=== PATIENT | female | born 1955 | race Caucasian/White ===

== ENCOUNTER → 2017-02-09 | Outpatient (CLI) | payer OTHER | END | disposition home or self-care (01) | LOC: C.LABUPNIT 09:18 | PROVIDERS: ATTEND Family Medicine | DX: Z13.818 Encounter for screening for other digestive system disorders (principal) ==

== ENCOUNTER → 2017-02-21 | Outpatient (CLI) | payer OTHER ==
[2017-02-21 11:05] LABS: URINE APPEARANCE CLOUDY (CLEAR); URINE BILIRUBIN NEG (NEG); URINE COLOR YELLOW; URINE NITRITE NEG (NEG); URINE PH 5.5 (4.5-7.5); URINE SPECIFIC GRAVITY 1.014 (1.000-1.030); UROBILINOGEN NEG (NEG); ZZUR CULT IF INDIC CLEAN CATCH YES
[2017-02-21 11:10] LABS: MANUAL MICROSCOPIC REQUIRED? NO; REVIEW REQ? NO
== END | disposition home or self-care (01) ==
LOC: C.LABUPNIT 09:29
PROVIDERS: ATTEND Nurse Practitioner Family
DX: Z01.89 Encounter for other specified special examinations (principal)

== ENCOUNTER → 2017-02-23 | Outpatient (CLI) | payer OTHER ==
[2017-02-23 10:37] LABS: MANUAL MICROSCOPIC REQUIRED? NO; REVIEW REQ? NO; URINE APPEARANCE CLEAR (CLEAR); URINE BILIRUBIN NEG (NEG); URINE COLOR YELLOW; URINE EPITHELIAL CELL AUTO 0-5 /lpf (0-5); URINE NITRITE NEG (NEG); URINE PH 6.5 (4.5-7.5); URINE SPECIFIC GRAVITY 1.012 (1.000-1.030); UROBILINOGEN NEG (NEG); ZZUR CULT IF INDIC CLEAN CATCH YES
== END ==
LOC: C.LABUPNIT 08:37
PROVIDERS: ATTEND Nurse Practitioner Family
DX: N39.0 Urinary tract infection, site not specified (principal)

== ENCOUNTER → 2017-03-01 | Outpatient (CLI) | payer OTHER ==
[2017-03-01 15:21] LABS: URINE APPEARANCE CLOUDY (CLEAR); URINE BILIRUBIN NEG (NEG); URINE COLOR YELLOW; URINE EPITHELIAL CELL AUTO >30 /lpf (0-5); URINE NITRITE POS (NEG); URINE PH 5.5 (4.5-7.5); URINE SPECIFIC GRAVITY 1.022 (1.000-1.030); UROBILINOGEN NEG (NEG); ZZUR CULT IF INDIC CLEAN CATCH YES
[2017-03-01 15:24] LABS: MANUAL MICROSCOPIC REQUIRED? NO; REVIEW REQ? NO
== END | disposition home or self-care (01) ==
LOC: C.LABUPNIT 14:38
PROVIDERS: ATTEND Nurse Practitioner Family
DX: N39.0 Urinary tract infection, site not specified (principal)

== ENCOUNTER → 2017-03-02 | Outpatient (CLI) | payer OTHER ==
[2017-03-02 10:08] LABS: HEMATOCRIT 34.8 % (37-47); MEAN CELL VOLUME 94.3 fL (80-100); MEAN CORPUSCULAR HEMOGLOBIN 31.4 pg (25-34); MEAN CORPUSCULAR HGB CONC 33.3 g/dl (32-36); MEAN PLATELET VOLUME 9.6 fL (7.4-10.4); PLATELET COUNT 251 K/uL (130-400); RED BLOOD COUNT 3.69 M/uL (4.2-5.4); WHITE BLOOD COUNT 9.51 K/uL (4.8-10.8)
[2017-03-02 10:09] LABS: BLOOD UREA NITROGEN 12 mg/dl (7-18); BUN/CREATININE RATIO 17.4 (10-20); CALCIUM 8.5 mg/dl (8.5-10.1); CARBON DIOXIDE 28 mmol/L (21-32); CHLORIDE 109 mmol/L (98-107); GLUCOSE 90 mg/dl (70-99); POTASSIUM 3.8 mmol/L (3.5-5.1); SODIUM 141 mmol/L (136-145)
== END ==
LOC: C.LABUPNIT 09:22
PROVIDERS: ATTEND Nurse Practitioner Family
DX: M86.31 Chronic multifocal osteomyelitis, shoulder (principal); E78.00 Pure hypercholesterolemia, unspecified

== ENCOUNTER → 2017-04-19 | Outpatient (CLI) | payer OTHER | LOC: C.LABUPNIT 08:02 | PROVIDERS: ATTEND Nurse Practitioner Family | DX: M62.81 Muscle weakness (generalized) (principal) ==

== ENCOUNTER → 2017-05-09 | Outpatient (CLI) | payer OTHER ==
[2017-05-09 13:01] LABS: URINE APPEARANCE CLEAR (CLEAR); URINE BILIRUBIN NEG (NEG); URINE COLOR YELLOW; URINE EPITHELIAL CELL AUTO 20-30 /lpf (0-5); URINE NITRITE NEG (NEG); URINE SPECIFIC GRAVITY 1.013 (1.000-1.030); UROBILINOGEN NEG (NEG)
[2017-05-09 13:13] LABS: MANUAL MICROSCOPIC REQUIRED? NO; REVIEW REQ? NO
== END ==
LOC: C.LABUPNIT 11:20
PROVIDERS: ATTEND Nurse Practitioner Family
DX: N39.0 Urinary tract infection, site not specified (principal)

== ENCOUNTER → 2017-05-13 | Outpatient (CLI) | payer OTHER ==
[2017-05-13 04:09] LABS: BLOOD UREA NITROGEN 17 mg/dl (7-18); BUN/CREATININE RATIO 23.7 (10-20); CALCIUM 8.3 mg/dl (8.5-10.1); CARBON DIOXIDE 26 mmol/L (21-32); CHLORIDE 109 mmol/L (98-107); CREATININE 0.73 mg/dl (0.60-1.20); GLUCOSE 105 mg/dl (70-99); POTASSIUM 3.9 mmol/L (3.5-5.1); SODIUM 142 mmol/L (136-145)
== END ==
LOC: C.LABUPNIT 10:55
PROVIDERS: ATTEND Nurse Practitioner Family
DX: Z01.89 Encounter for other specified special examinations (principal)

== ENCOUNTER → 2017-05-27 | Outpatient (CLI) | payer OTHER ==
[2017-05-27 10:28] LABS: BASO % 0.5 %; BASO ABS # 0.05 K/uL (0-0.2); EOS % 0.9 %; HEMATOCRIT 40.1 % (37-47); IG% 0.2 %; LYMPH % 29.3 %; LYMPH ABS # 2.92 K/uL (1.2-3.4); MEAN CELL VOLUME 96.2 fL (80-100); MEAN CORPUSCULAR HEMOGLOBIN 31.9 pg (25-34); MEAN PLATELET VOLUME 9.6 fL (7.4-10.4); MONO % 7.8 %; NEUT % 61.3 %; PLATELET COUNT 281 K/uL (130-400); RED BLOOD COUNT 4.17 M/uL (4.2-5.4); WHITE BLOOD COUNT 9.98 K/uL (4.8-10.8)
[2017-05-27 10:36] LABS: COMPLETE YES; MEAN CORPUSCULAR HGB CONC 33.2 g/dl (32-36)
[2017-05-27 10:54] LABS: BLOOD UREA NITROGEN 20 mg/dl (7-18); BUN/CREATININE RATIO 20.6 (10-20); CALCIUM 8.4 mg/dl (8.5-10.1); CARBON DIOXIDE 24 mmol/L (21-32); CHLORIDE 108 mmol/L (98-107); CREATININE 0.98 mg/dl (0.60-1.20); GLUCOSE 155 mg/dl (70-99); POTASSIUM 3.7 mmol/L (3.5-5.1); SODIUM 139 mmol/L (136-145)
== END | disposition home or self-care (01) ==
LOC: C.LABUPNIT 10:16
PROVIDERS: ATTEND Nurse Practitioner Family
DX: Z01.89 Encounter for other specified special examinations (principal)

== ENCOUNTER → 2017-05-29 | Outpatient (CLI) | payer OTHER ==
[2017-05-29 10:53] LABS: BLOOD UREA NITROGEN 16 mg/dl (7-18); BUN/CREATININE RATIO 19.1 (10-20); CALCIUM 8.4 mg/dl (8.5-10.1); CARBON DIOXIDE 26 mmol/L (21-32); CHLORIDE 106 mmol/L (98-107); CREATININE 0.83 mg/dl (0.60-1.20); GLUCOSE 131 mg/dl (70-99); POTASSIUM 3.6 mmol/L (3.5-5.1); SODIUM 141 mmol/L (136-145)
== END ==
LOC: C.LABUPNIT 09:11
PROVIDERS: ATTEND Nurse Practitioner Family
DX: E78.00 Pure hypercholesterolemia, unspecified (principal); N39.0 Urinary tract infection, site not specified

== ENCOUNTER → 2017-06-05 | Outpatient (CLI) | payer OTHER ==
[2017-06-05 08:42] LABS: BLOOD UREA NITROGEN 18 mg/dl (7-18); BUN/CREATININE RATIO 20.7 (10-20); CALCIUM 8.3 mg/dl (8.5-10.1); CARBON DIOXIDE 27 mmol/L (21-32); CHLORIDE 107 mmol/L (98-107); CREATININE 0.88 mg/dl (0.60-1.20); GLUCOSE 107 mg/dl (70-99); POTASSIUM 3.8 mmol/L (3.5-5.1); SODIUM 142 mmol/L (136-145)
== END ==
LOC: C.LABUPNIT 08:20
PROVIDERS: ATTEND Nurse Practitioner Family
DX: N39.0 Urinary tract infection, site not specified (principal)

== ENCOUNTER → 2017-07-07 | Outpatient (CLI) | payer OTHER ==
[~2017-07-07] MED LIST: ABL/5 PO; ACET-1311 PO; ALUMSUS2 PO; ASPCH81X PO; BACL10TA PO; BENZ1CAP90 PO; BISA10SU3 PR; BUPR-79 PO; BUSP-8 PO; CETI1CAP3 PO; CIPR-255 PO; CLOTCRE5 TOP; CRAN1TAB3 PO; DICY10CA12 PO; DOCU100C31 PO; DRGTP12 TOP; GUAI100S66 PO; MAGN400T6 PO; MELO-84 PO; MISCCAP80 PO; MOML PO; OXYBPOW PO; OXYC-164 PO; PHEN-775 PO; PRLSR20 PO; RANI150T85 PO; SENN1TAB77 PO; SIME80TA PO; SIMV20TA2 PO; SODI1ENE PR; [UNRECOGNIZED DRUG - CODE] PO
== END ==
LOC: C.LABUPNIT 08:16
PROVIDERS: ATTEND Nurse Practitioner Family
DX: N39.0 Urinary tract infection, site not specified (principal)

== ENCOUNTER → 2017-08-01 | Outpatient (CLI) | payer OTHER | LOC: C.LABUPNIT 08:04 | PROVIDERS: ATTEND Nurse Practitioner Family | DX: R30.0 Dysuria (principal) ==

== ENCOUNTER → 2017-08-28 | Outpatient (CLI) | payer OTHER ==
[~2017-08-28] MED LIST changes: -BACL10TA PO; -BENZ1CAP90 PO; -CETI1CAP3 PO; -CIPR-255 PO; -CLOTCRE5 TOP; +DRGTP12 EXT; -DRGTP12 TOP; -GUAI100S66 PO; -OXYBPOW PO; -PHEN-775 PO; -SENN1TAB77 PO; -[UNRECOGNIZED DRUG - CODE] PO
[2017-08-28 08:32] LABS: ALBUMIN 2.7 gm/dl (3.4-5.0); ALT/SGPT 22 U/L (12-78); AST/SGOT 20 U/L (15-37); BLOOD UREA NITROGEN 12 mg/dl (7-18); CALCIUM 8.7 mg/dl (8.5-10.1); CARBON DIOXIDE 22 mmol/L (21-32); CREATININE 0.91 mg/dl (0.60-1.20); GLUCOSE 108 mg/dl (70-99); POTASSIUM 3.7 mmol/L (3.5-5.1); SODIUM 140 mmol/L (136-145); TOTAL PROTEIN 6.6 gm/dl (6.4-8.2)
[2017-08-28 08:33] LABS: ALKALINE PHOSPHATASE 111 U/L (45-117)
== END ==
LOC: C.LABUPNIT 07:49
PROVIDERS: ATTEND Nurse Practitioner Family
DX: N39.0 Urinary tract infection, site not specified (principal)

== ENCOUNTER → 2017-08-30 | Day surgery (SDC) | payer OTHER ==
[2017-08-17 10:22] VITALS: Ht 165.1 cm; Wt 136.8 kg
--- NOTE | 2017-08-28 13:56 | PAT Medication Instructions ---
Service Date Aug 28, 2017. Current Home Medication List Acetaminophen (Tylenol), 650 MG PO Q4H PRN for Fever or Headache Aluminum/Magnesium/Simeth (Maalox Max Susp), 15 ML PO DAILY PRN for Indigestion Aripiprazole (Abilify), 5 MG PO DAILY Aspirin (Aspirin Chewable), 81 MG PO DAILY Bisacodyl (Dulcolax), 1 SUPP NC DAILY PRN for Constipation Bupropion (Wellbutrin Sr), 450 MG PO DAILY Buspirone Hcl (Buspirone Hcl), 10 MG PO DAILY Cranberry (Vaccinium Macrocarp (Cranberry), 1 TAB PO DAILY Dicyclomine Hcl (Dicyclomine Hcl), 1 CAP PO QID Docusate Sodium (Docusate Sodium), 1 CAP PO BID Fentanyl (Fentanyl), 1 DOSE EXT DIRECTED Magnesium Hydroxide (Milk Of Magnesia), 30 ML PO DIRECTED PRN for Constipation Magnesium Oxide (Mag-Ox), 400 MG PO DAILY Meloxicam (Mobic), 15 MG PO DAILY Omeprazole (Prilosec), 20 MG PO DAILY Oxycodone Hcl (Oxycodone Hcl), 1 TAB PO QID PRN for Pain Probiotic Product (Probiotic), 1 CAP PO BID Ranitidine (Zantac), 2 TAB PO BID Simethicone (Bicarsim), 2 TAB PO DIRECTED PRN for GAS PAIN Simvastatin (Zocor), 20 MG PO QPM Sodium Phosphates (Fleet Enema Six Pack), 1 DOSE NC DIRECTED PRN for Constipation Medication Instructions For Your Scheduled Surgery - Check with surgeon for instructions (okay to continue as directed from an anesthesia perspective) Meloxicam (Mobic), 15 MG PO DAILY Aspirin (Aspirin Chewable), 81 MG PO DAILY - Continue as directed: Fentanyl (Fentanyl), 1 DOSE EXT DIRECTED Omeprazole (Prilosec), 20 MG PO DAILY Buspirone Hcl (Buspirone Hcl), 10 MG PO DAILY Bupropion (Wellbutrin Sr), 450 MG PO DAILY Aripiprazole (Abilify), 5 MG PO DAILY - Hold the following medications 24 hours prior to surgery: Cranberry (Vaccinium Macrocarp (Cranberry), 1 TAB PO DAILY - Hold the following medications the morning of surgery: Aluminum/Magnesium/Simeth (Maalox Max Susp), 15 ML PO DAILY PRN for Indigestion Bisacodyl (Dulcolax), 1 SUPP NC DAILY PRN for Constipation Dicyclomine Hcl (Dicyclomine Hcl), 1 CAP PO QID Docusate Sodium (Docusate Sodium), 1 CAP PO BID Magnesium Hydroxide (Milk Of Magnesia), 30 ML PO DIRECTED PRN for Constipation Magnesium Oxide (Mag-Ox), 400 MG PO DAILY Probiotic Product (Probiotic), 1 CAP PO BID Ranitidine (Zantac), 2 TAB PO BID Simethicone (Bicarsim), 2 TAB PO DIRECTED PRN for GAS PAIN Sodium Phosphates (Fleet Enema Six Pack), 1 DOSE NC DIRECTED PRN for Constipation - Take the following medications the morning of surgery with a sip of water: Oxycodone Hcl (Oxycodone Hcl), 1 TAB PO QID PRN for Pain (okay to take up to 4 hours prior to surgery if needed) Acetaminophen (Tylenol), 650 MG PO Q4H PRN for Fever or Headache(okay to take up to 4 hours prior to surgery if needed) - Take the following medications as scheduled the night before surgery: Sodium Phosphates (Fleet Enema Six Pack), 1 DOSE NC DIRECTED PRN for Constipation (if needed) Simvastatin (Zocor), 20 MG PO QPM Probiotic Product (Probiotic), 1 CAP PO BID Ranitidine (Zantac), 2 TAB PO BID Simethicone (Bicarsim), 2 TAB PO DIRECTED PRN for GAS PAIN (if needed) Oxycodone Hcl (Oxycodone Hcl), 1 TAB PO QID PRN for Pain (if needed) Magnesium Hydroxide (Milk Of Magnesia), 30 ML PO DIRECTED PRN for Constipation (if needed) Docusate Sodium (Docusate Sodium), 1 CAP PO BID Dicyclomine Hcl (Dicyclomine Hcl), 1 CAP PO QID Bisacodyl (Dulcolax), 1 SUPP NC DAILY PRN for Constipation (if needed) Aluminum/Magnesium/Simeth (Maalox Max Susp), 15 ML PO DAILY PRN for Indigestion (if needed) Acetaminophen (Tylenol), 650 MG PO Q4H PRN for Fever or Headache (if needed) If you have any questions please call us at [phone] or [phone] or [phone]
[~2017-08-30] VITALS: Ht 165.1 cm; Wt 136.8 kg
[~2017-08-30] MED LIST changes: +CYCLOPENTOLATE HCL 1% OP SOLN PER DROP CHARGE OPR SCH; +EpINEphrine INJ 1MG/ML AMP 1 MG/ML AMP ONE; +LACTATED RINGER'S 1000ML 500 ML IV SCH; +LIDOCAINE 4% OP SOLN DROP CHARGE ONE; +LIDOCAINE 4% OP SOLN DROP CHARGE OPR SCH; +LIDOCAINE HCL 1% MPF 2 ML VIAL ONE; +MIDAZOLAM HCL 1 MG/ML 2ML VIAL ONE; +MOXIFLOXACIN OPH SOLN PER DROP CHARGE ONE; +MOXIFLOXACIN OPH SOLN PER DROP CHARGE OPR SCH; +PHENYLEPHRINE HCL 2.5% OP SOLN PER DROP CHARGE OPR SCH; +POVIDONE-IODINE OP SOLN 30 ML BTL ONE; +PROPARACAINE 0.5% OP SOLN PER DROP CHARGE OPR SCH; +TOBRAMYCIN/DEXAMETHASONE OPH OINT PER APPLN CHARGE ONE; +TROPICAMIDE 1% OP SOLN PER DROP CHARGE OPR SCH
--- NOTE | 2017-08-30 07:58 | History & Physical Bridge - SC ---
H&P Re-Evaluation Bridge Note: I have examined the patient, reviewed the History & Physical and in the interval since the performance of the History & Physical I have noted the following changes of clinical significance: No changes noted
== END | disposition home or self-care (01) ==
LOC: X.SURG 07:35
PROVIDERS: ATTEND Ophthalmology
DX: H25.11 Age-related nuclear cataract, right eye (principal); Z53.09 Procedure and treatment not carried out because of other contraindication; I10 Essential (primary) hypertension; E78.00 Pure hypercholesterolemia, unspecified; J44.9 Chronic obstructive pulmonary disease, unspecified; F32.9 Major depressive disorder, single episode, unspecified; M19.90 Unspecified osteoarthritis, unspecified site; E66.01 Morbid (severe) obesity due to excess calories; Z88.0 Allergy status to penicillin; Z87.891 Personal history of nicotine dependence; Z79.82 Long term (current) use of aspirin

== ENCOUNTER → 2017-08-30 | Outpatient (CLI) | payer OTHER ==
[~2017-08-30] MED LIST changes: -CYCLOPENTOLATE HCL 1% OP SOLN PER DROP CHARGE OPR SCH; -EpINEphrine INJ 1MG/ML AMP 1 MG/ML AMP ONE; -LACTATED RINGER'S 1000ML 500 ML IV SCH; -LIDOCAINE 4% OP SOLN DROP CHARGE ONE; -LIDOCAINE 4% OP SOLN DROP CHARGE OPR SCH; -LIDOCAINE HCL 1% MPF 2 ML VIAL ONE; -MIDAZOLAM HCL 1 MG/ML 2ML VIAL ONE; -MOXIFLOXACIN OPH SOLN PER DROP CHARGE ONE; -MOXIFLOXACIN OPH SOLN PER DROP CHARGE OPR SCH; -PHENYLEPHRINE HCL 2.5% OP SOLN PER DROP CHARGE OPR SCH; -POVIDONE-IODINE OP SOLN 30 ML BTL ONE; -PROPARACAINE 0.5% OP SOLN PER DROP CHARGE OPR SCH; -TOBRAMYCIN/DEXAMETHASONE OPH OINT PER APPLN CHARGE ONE; -TROPICAMIDE 1% OP SOLN PER DROP CHARGE OPR SCH
[2017-08-30 08:33] LABS: BASO % 0.4 %; BASO ABS # 0.03 K/uL (0-0.2); EOS % 3.3 %; EOS ABS # 0.26 K/uL (0-0.5); HEMATOCRIT 35.6 % (37-47); HEMOGLOBIN 11.8 g/dL (12.0-16.0); IG# 0.02 K/uL (0.00-0.02); LYMPH % 38.1 %; LYMPH ABS # 2.99 K/uL (1.2-3.4); MEAN CELL VOLUME 94.7 fL (80-100); MEAN CORPUSCULAR HEMOGLOBIN 31.4 pg (25-34); MEAN CORPUSCULAR HGB CONC 33.1 g/dl (32-36); MEAN PLATELET VOLUME 10.2 fL (7.4-10.4); MONO % 7.6 %; NEUT % 50.3 %; NEUT ABS # 3.95 K/uL (1.4-6.5); PLATELET COUNT 220 K/uL (130-400); RED CELL DISTRIBUTION WIDTH CV 13.8 % (11.5-14.5); RED CELL DISTRIBUTION WIDTH SD 47.7 fL (36.4-46.3); WHITE BLOOD COUNT 7.85 K/uL (4.8-10.8)
[2017-08-30 08:44] LABS: BLOOD UREA NITROGEN 12 mg/dl (7-18); CALCIUM 8.5 mg/dl (8.5-10.1); CARBON DIOXIDE 25 mmol/L (21-32); CREATININE 0.83 mg/dl (0.60-1.20); GLUCOSE 91 mg/dl (70-99); POTASSIUM 3.9 mmol/L (3.5-5.1); SODIUM 141 mmol/L (136-145)
== END ==
LOC: C.LABUPNIT 08:00
PROVIDERS: ATTEND Nurse Practitioner Family
DX: N39.498 Other specified urinary incontinence (principal)

== ENCOUNTER → 2017-09-11 | Outpatient (CLI) | payer OTHER ==
[~2017-09-11] MED LIST changes: +OPTIRAY 320 IV PRN
--- NOTE | 2017-09-11 14:13 | DIAGNOSTIC IMAGING REPORT ---
ABD/PELVIS COMBO CLINICAL HISTORY: 62 years-old Female presenting with GROSS HEMATURIA,UTI. TECHNIQUE: Multidetector CT of the abdomen and pelvis was performed before and after the administration of intravenous contrast. IV contrast: 120 mL of Optiray 320. A dose lowering technique was used consistent with the principles of ALARA (as low as reasonably achievable). COMPARISON: None. CT DOSE (mGy.cm): The estimated cumulative dose is 2134.12 mGycm. FINDINGS: B[employer] topogram: Cholecystectomy clips. Degenerative changes of the hips. Lung bases: Lungs and pleural spaces clear. Normal heart size. Coronary artery calcification. No pericardial or pleural effusion. Liver: Normal morphology. Normal density. No focal lesion. Patent hepatic vasculature. Biliary: No intrahepatic or extrahepatic biliary ductal dilatation. Normal gallbladder. Pancreas: Mild parenchymal atrophy. Spleen: Normal. Adrenal glands: Nodular thickening of the left adrenal gland, nonspecific. Right adrenal gland normal. Kidneys and ureters: Nonobstructing punctate calculi at the upper pole of the right kidney. Normal renal parenchyma bilaterally. No hydronephrosis. No filling defects within the urinary collecting systems. Ureters normal. Bladder: Normal. Pelvic organs: Uterus and ovaries normal. Bowel: Normal appendix. No bowel obstruction. Peritoneal cavity: No free fluid or intraperitoneal gas. Lymph nodes: No enlarged lymph nodes in the abdomen or pelvis. Vasculature: Atherosclerosis of the normal caliber abdominal aorta. IVC patent. Abdominal wall: Small fat-containing umbilical hernia. Musculoskeletal: Severe degenerative changes of the bilateral hip joints, which may have a post traumatic etiology. Degenerative changes of the spine also noted. IMPRESSION: 1. Punctate nonobstructing nephrolithiasis at the upper pole of the right kidney. No hydronephrosis. 2. No solid renal neoplasm or filling defect within the urinary collecting systems or bladder to suggest neoplasm. This does not exclude the necessity of cystoscopy if there is clinical concern for bladder neoplasm. 3. 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 Electronically signed by: Raleigh Schroeder M.D. 09/11/2017 2:12 PM Dictated Date/Time: 09/11/2017 2:03 PM
== END | disposition home or self-care (01) ==
LOC: C.CTS 13:32
PROVIDERS: ATTEND Urology
DX: N39.0 Urinary tract infection, site not specified (principal); R31.0 Gross hematuria; R30.0 Dysuria; N20.0 Calculus of kidney; M89.8X5 Other specified disorders of bone, thigh

== ENCOUNTER → 2017-10-18 | Day surgery (SDC) | payer OTHER ==
[2017-10-03 07:37] VITALS: Ht 165.1 cm; Wt 132.3 kg
[~2017-10-18] VITALS: Ht 165.1 cm; Wt 132.3 kg
[~2017-10-18] MED LIST changes: +CYCLOPENTOLATE HCL 1% OP SOLN PER DROP CHARGE OPR SCH; +EpINEphrine INJ 1MG/ML AMP 1 MG/ML AMP ONE; +LACTATED RINGER'S 1000ML 500 ML IV SCH; +LIDOCAINE 4% OP SOLN DROP CHARGE ONE; +LIDOCAINE 4% OP SOLN DROP CHARGE OPR SCH; +LIDOCAINE HCL 1% MPF 2 ML VIAL ONE; +MOXIFLOXACIN OPH SOLN PER DROP CHARGE ONE; +MOXIFLOXACIN OPH SOLN PER DROP CHARGE OPR SCH; -OPTIRAY 320 IV PRN; +PHENYLEPHRINE HCL 2.5% OP SOLN PER DROP CHARGE OPR SCH; +POVIDONE-IODINE OP SOLN 30 ML BTL ONE; +PROPARACAINE 0.5% OP SOLN PER DROP CHARGE OPR SCH; +SENN1TAB77 PO; +TOBRAMYCIN/DEXAMETHASONE OPH OINT PER APPLN CHARGE ONE; +TROPICAMIDE 1% OP SOLN PER DROP CHARGE OPR SCH
[2017-10-18 09:32] VITALS: BP 121/82; PULSE 71; TEMP 36.5; O2SAT 96
== END | disposition home or self-care (01) ==
LOC: X.SURG 08:59
PROVIDERS: ATTEND Ophthalmology
DX: H25.11 Age-related nuclear cataract, right eye (principal); Z53.09 Procedure and treatment not carried out because of other contraindication; I10 Essential (primary) hypertension; E78.00 Pure hypercholesterolemia, unspecified; F32.9 Major depressive disorder, single episode, unspecified; J44.9 Chronic obstructive pulmonary disease, unspecified; Z87.891 Personal history of nicotine dependence; Z79.82 Long term (current) use of aspirin; Z79.899 Other long term (current) drug therapy; Z88.0 Allergy status to penicillin; Z88.8 Allergy status to other drugs, medicaments and biological substances

== ENCOUNTER → 2017-11-08 | Outpatient (CLI) | payer OTHER ==
[~2017-11-08] MED LIST changes: +BACL10TA PO; -CYCLOPENTOLATE HCL 1% OP SOLN PER DROP CHARGE OPR SCH; -DRGTP12 EXT; +DRGTP12 TOP; -EpINEphrine INJ 1MG/ML AMP 1 MG/ML AMP ONE; -LACTATED RINGER'S 1000ML 500 ML IV SCH; -LIDOCAINE 4% OP SOLN DROP CHARGE ONE; -LIDOCAINE 4% OP SOLN DROP CHARGE OPR SCH; -LIDOCAINE HCL 1% MPF 2 ML VIAL ONE; -MOXIFLOXACIN OPH SOLN PER DROP CHARGE ONE; -MOXIFLOXACIN OPH SOLN PER DROP CHARGE OPR SCH; -PHENYLEPHRINE HCL 2.5% OP SOLN PER DROP CHARGE OPR SCH; -POVIDONE-IODINE OP SOLN 30 ML BTL ONE; -PROPARACAINE 0.5% OP SOLN PER DROP CHARGE OPR SCH; -TOBRAMYCIN/DEXAMETHASONE OPH OINT PER APPLN CHARGE ONE; -TROPICAMIDE 1% OP SOLN PER DROP CHARGE OPR SCH
== END ==
LOC: C.LABUPNIT 14:19
PROVIDERS: ATTEND Nurse Practitioner Family
DX: R33.9 Retention of urine, unspecified (principal)

== ENCOUNTER → 2017-11-15 | Day surgery (SDC) | payer OTHER ==
[2017-11-09 09:16] VITALS: Ht 165.1 cm; Wt 133.2 kg
--- NOTE | 2017-11-09 13:30 | PAT Medication Instructions ---
Service Date Nov 09, 2017. Current Home Medication List Acetaminophen (Tylenol), 650 MG PO Q4H PRN for Fever or Headache Aluminum/Magnesium/Simeth (Maalox Max Susp), 15 ML PO DAILY PRN for Indigestion Aripiprazole (Abilify), 5 MG PO DAILY Aspirin (Aspirin Chewable), 81 MG PO DAILY Baclofen (Lioresal), 10 MG PO TID Bisacodyl (Dulcolax), 1 SUPP RI DAILY PRN for Constipation Bupropion (Wellbutrin Sr), 450 MG PO DAILY Buspirone Hcl (Buspirone Hcl), 10 MG PO BID Cranberry (Vaccinium Macrocarp (Cranberry), 1 TAB PO DAILY Dicyclomine Hcl (Dicyclomine Hcl), 10 MG PO Q6H PRN for ABD CRAMPING Docusate Sodium (Docusate Sodium), 1 CAP PO BID Fentanyl (Fentanyl), 1 DOSE TOP Q72H Magnesium Hydroxide (Milk Of Magnesia), 30 ML PO DIRECTED PRN for Constipation Magnesium Oxide (Mag-Ox), 400 MG PO DAILY Meloxicam (Mobic), 15 MG PO DAILY Omeprazole (Prilosec), 20 MG PO DAILY Oxycodone Hcl (Oxycodone Hcl), 1 TAB PO QID PRN for Pain Probiotic Product (Probiotic), 1 CAP PO BID Ranitidine (Zantac), 2 TAB PO BID Sennosides (Senokot), 2 TAB PO DAILY Simethicone (Bicarsim), 2 TAB PO DIRECTED PRN for GAS PAIN Simvastatin (Zocor), 20 MG PO QPM Sodium Phosphates (Fleet Enema Six Pack), 1 DOSE RI DIRECTED PRN for Constipation Medication Instructions For Your Scheduled Surgery -Continue as directed: Fentanyl (Fentanyl), 1 DOSE TOP Q72H - DO NOT TAKE the following medications the morning of surgery: Aluminum/Magnesium/Simeth (Maalox Max Susp), 15 ML PO DAILY PRN for Indigestion Baclofen (Lioresal), 10 MG PO TID Bisacodyl (Dulcolax), 1 SUPP RI DAILY PRN for Constipation Cranberry (Vaccinium Macrocarp (Cranberry), 1 TAB PO DAILY Dicyclomine Hcl (Dicyclomine Hcl), 10 MG PO Q6H PRN for ABD CRAMPING Docusate Sodium (Docusate Sodium), 1 CAP PO BID Magnesium Hydroxide (Milk Of Magnesia), 30 ML PO DIRECTED PRN for Constipation Magnesium Oxide (Mag-Ox), 400 MG PO DAILY Probiotic Product (Probiotic), 1 CAP PO BID Sennosides (Senokot), 2 TAB PO DAILY Simethicone (Bicarsim), 2 TAB PO DIRECTED PRN for GAS PAIN Sodium Phosphates (Fleet Enema Six Pack), 1 DOSE RI DIRECTED PRN for Constipation - The following medications MAY be taken THE MORNING OF surgery with a sip of water: Acetaminophen (Tylenol), 650 MG PO Q4H PRN for Fever or Headache (if needed) Aripiprazole (Abilify), 5 MG PO DAILY Aspirin (Aspirin Chewable), 81 MG PO DAILY Bupropion (Wellbutrin Sr), 450 MG PO DAILY Buspirone Hcl (Buspirone Hcl), 10 MG PO BID Meloxicam (Mobic), 15 MG PO DAILY Omeprazole (Prilosec), 20 MG PO DAILY Oxycodone Hcl (Oxycodone Hcl), 1 TAB PO QID PRN for Pain (if needed) Ranitidine (Zantac), 2 TAB PO BID - The following medications may be taken as scheduled THE NIGHT BEFORE surgery: Acetaminophen (Tylenol), 650 MG PO Q4H PRN for Fever or Headache (if needed) Aluminum/Magnesium/Simeth (Maalox Max Susp), 15 ML PO DAILY PRN for Indigestion (if needed) Aripiprazole (Abilify), 5 MG PO DAILY Aspirin (Aspirin Chewable), 81 MG PO DAILY Baclofen (Lioresal), 10 MG PO TID Bisacodyl (Dulcolax), 1 SUPP RI DAILY PRN for Constipation (if needed) Bupropion (Wellbutrin Sr), 450 MG PO DAILY Buspirone Hcl (Buspirone Hcl), 10 MG PO BID Magnesium Hydroxide (Milk Of Magnesia), 30 ML PO DIRECTED PRN for Constipation (if needed) Magnesium Oxide (Mag-Ox), 400 MG PO DAILY Meloxicam (Mobic), 15 MG PO DAILY Omeprazole (Prilosec), 20 MG PO DAILY Oxycodone Hcl (Oxycodone Hcl), 1 TAB PO QID PRN for Pain (if needed) Ranitidine (Zantac), 2 TAB PO BID Probiotic Product (Probiotic), 1 CAP PO BID Sennosides (Senokot), 2 TAB PO DAILY Simethicone (Bicarsim), 2 TAB PO DIRECTED PRN for GAS PAIN (if needed) Simvastatin (Zocor), 20 MG PO QPM Sodium Phosphates (Fleet Enema Six Pack), 1 DOSE RI DIRECTED PRN for Constipation (if needed) If you have any questions please call us at [phone] or [phone] or [phone]
[~2017-11-15] VITALS: Ht 165.1 cm; Wt 133.2 kg
[~2017-11-15] MED LIST changes: +500ML BSS 0.3ML EPI 1:1000PF IRRIG ONE; +ACETAMINOPHEN 325 MG TAB PO PRN; +AMVISC PLUS 0.8ML SYRINGE INT OCU ONE; +ATROPINE SULFATE 0.1 MG/ML 5ML SYR IV PRN; +BSS FLUSH ONE; +ENDOCOAT 0.85ML SYRINGE INT OCU ONE; +EpHEDrine SULFATE INJ 50 MG/ML AMP IV PRN; +EpINEphrine INJ 1MG/ML AMP 1 MG/ML AMP ONE; +LACTATED RINGER'S 1000ML 500 ML IV SCH; +LIDOCAINE 4% OP SOLN DROP CHARGE ONE; +LIDOCAINE 4% OP SOLN DROP CHARGE OPR SCH; +LIDOCAINE HCL 1% MPF 2 ML VIAL ONE; +MIDAZOLAM HCL 1 MG/ML 2ML VIAL ONE; +MIX: 4ML BSS 1ML EPI 1:1000 PF TOP ONE; +MOXIFLOXACIN OPH SOLN PER DROP CHARGE ONE; +POVIDONE-IODINE OP SOLN 30 ML BTL ONE; +PROPARACAINE 0.5% OP SOLN PER DROP CHARGE OPR SCH; +TOBRAMYCIN/DEXAMETHASONE OPH OINT PER APPLN CHARGE ONE
[2017-11-15] MEDS: PHENYLEPHRINE HCL 2.5% OP SOLN PER DROP CHARGE OPR SCH ×2 (10:21→10:24)
[2017-11-15] MEDS: TROPICAMIDE 1% OP SOLN PER DROP CHARGE OPR SCH ×2 (10:21→10:26)
[2017-11-15] MEDS: CYCLOPENTOLATE HCL 1% OP SOLN PER DROP CHARGE OPR SCH ×2 (10:22→10:27)
[2017-11-15] MEDS: MOXIFLOXACIN OPH SOLN PER DROP CHARGE OPR SCH ×2 (10:23→10:29)
--- NOTE | 2017-11-15 11:01 | [facility] Post Operative Brief Note ---
Immediate Operative Summary Operative Date November 15, 2017. Pre-Operative Diagnosis Right Eye Cataract Post-Operative Diagnosis Same Procedure(s) Performed Right Eye Cataract Phacoemulsification With Intraocular Lens Implant Surgeon Dr. Jones Business Continuity Planning Director Surgeon(s) None Estimated Blood Loss None Findings Consistent with Post-Op Diagnosis Specimens None Anesthesia Type MAC Complication(s) none Disposition Accompanied Pt To Recovery: no Disposition:
--- NOTE | 2017-11-15 11:02 | [facility] Operative Report ---
Operative Report Date of Service November 15, 2017. Operative Report DATE OF OPERATION: 11/15/17 PREOPERATIVE DIAGNOSIS: Senile nuclear cataract, right eye POSTOPERATIVE DIAGNOSIS: Senile nuclear cataract, right eye PROCEDURE PERFORMED: Phacoemulsification with intraocular lens implantation, right eye SURGEON: Dr. Win Jones ANESTHESIA: Topical with 1% intracameral lidocaine and monitored anesthesia care COMPLICATIONS: None DESCRIPTION OF PROCEDURE: After positively identifying the patient both verbally and by wristband in the preoperative area, the right eye was marked as the operative eye. The patient was then brought back to the operating room by the anesthesia and nursing staff where they were given a drop of Lidocaine and betadine into the operative eye. They were then sterilely prepped and draped in the standard fashion typical for ophthalmic surgery. Steri-strips were placed along the upper eyelids to keep the lashes back, and a lid speculum was placed into the operative eye. At this point, a documented time out was performed with members of the ophthalmology, nursing, and anesthesia staffs all agreeing upon the correct patient, correct location for surgery, correct procedure, and correct type and power of intraocular lens to be implanted. The microscope was then swung into position. First, a paracentesis wound was made using a sideport blade. Then, in sequence, 1% preservative-free lidocaine followed by Endocoat viscoelastic was injected into the anterior chamber. Next , the main incision was made with a keratome blade in triplanar fashion. A sharp cystotome was introduced into the eye and used to create a tear in the anterior capsule, which was directed into a continuous curvilinear capsulorrhexis using Utrata forceps. Hydrodissection was then performed with BSS on a flat-tip cannula. Next, the phacoemulsification handpiece was introduced into the eye and used to remove the nucleus in a [id number] fashion. This was done without complication and then the irrigation-aspiration handpiece was introduced into the eye and used to remove all remaining cortical and epinuclear material. Amvisc was then injected into the anterior chamber as well as into the capsular bag and using the lens injector system, an MX60E 14.0 D lens, serial number [id number], and expiration date 07/2020 was injected into the capsular bag and rotated into the correct position. Next, the irrigation- aspiration handpiece was used to remove all remaining Amvisc. BSS was used to hydrate the main wound, and then BSS was injected into the paracentesis site to reach physiologic pressure and then the main wound was checked and found to be watertight. The patient was given drops of Vigamox and Tobradex ointment into the operative eye, and then the surrounding area was cleaned and dried. A clear plastic shield was placed over the eye and the patient was then sat up and taken from the operating room by the anesthesia staff having tolerated the procedure well and suffering no complications. DISPOSITION: The patient was returned to the recovery room in stable condition. I attest to the content of the Intraoperative Record and any orders documented therein. Any exceptions are noted below.
[2017-11-15 11:03] VITALS: TEMP 36.5
--- NOTE | 2017-11-15 11:03 | Discharge Instructions-SurgCtr ---
Discharge Instructions Date of Service November 15, 2017. Visit Reason for Visit: Cataract Right Eye Discharge Discharge Diagnosis / Problem: right cataract Discharge Goals Goal(s): Decrease discomfort, Improve function Activity Recommendations Activity Limitations: as noted below Anesthesia . Post Anesthesia Instructions: If you have had General Anesthesia or IV Sedation: * Do not drive today. * Resume driving when surgeon permits. * Do not make important decisions or sign legal documents today. * Call surgeon for: 1. Temperature elevations greater than 101 degrees F. 2. Uncontrollable pain. 3. Excessive bleeding. 4. Persistent nausea and vomiting. 5. Medication intolerance (nausea, vomiting or rash). * For nausea and vomiting use only clear liquids such as: tea, soda, bouillon until nausea subsides, then gradually increase diet as tolerated. * If you have any concerns or questions, call your surgeon's office. If physician is unavailable and it is an emergency, call 911 or go to the nearest emergency room. . Instructions / Follow-Up Instructions / Follow-Up ACTIVITY RECOMMENDATIONS: * Light activities. * You may walk outside, read, watch television. * You may notice redness on the white part of the eye and some blurry vision - this is normal. MEDICATIONS: Resume previous medications unless instructed otherwise by your surgeon. Start all eye drops at 4pm today: * Eye drops (today): Prednisone - one drop in operative eye every 2 hours while awake Ofloxacin - one drop in operative eye every 2 hours while awake Ketorolac - one drop in operative eye daily SPECIAL CARE INSTRUCTIONS: * Tape plastic shield over eye to sleep at night. Call your doctor at with any concerns or problems. FOLLOW UP VISIT: Follow-up with Dr Jones at [facility] as scheduled. Diet Recommendations Home Diet: no limitations Procedures Procedures Performed: Right Eye Cataract Phacoemulsification With Intraocular Lens Implant Pending Studies Studies pending at discharge: no Medical Emergencies . Who to Call and When: Medical Emergencies: If at any time you feel your situation is an emergency, please call 911 immediately. . Non-Emergent Contact Non-Emergency issues call your: Surgeon . . "Provider Documentation" section prepared by Win Jones. .
--- NOTE | 2017-11-15 11:35 | Anesthesia Progress Nt - [facility] ---
Anesthesia Post Op Note Date & Time November 15, 2017 at 11:35 Vital Signs Pain Intensity: 0 Vital Signs Past 12 Hours Date Time Temp Pulse Resp B/P (MAP) Pulse Ox O2 Delivery O2 Flow Rate FiO2 11/15/17 11:03 36.5 78 12 120/82 (95) 98 Room Air 11/15/17 10:01 36.7 81 18 103/64 (77) 96 Room Air Notes Mental Status: alert / awake / arousable, participated in evaluation Pt Amnestic to Procedure: Yes Nausea / Vomiting: adequately controlled Pain: adequately controlled Airway Patency, RR, SpO2: stable & adequate BP & HR: stable & adequate Hydration State: stable & adequate Anesthetic Complications: no major complications apparent
[2017-11-15 11:39] VITALS: BP 123/76; PULSE 80; O2SAT 96
== END | disposition home or self-care (01) ==
LOC: X.SURG 09:02
PROVIDERS: ATTEND Ophthalmology
DX: H25.11 Age-related nuclear cataract, right eye (principal); G47.33 Obstructive sleep apnea (adult) (pediatric); K21.9 Gastro-esophageal reflux disease without esophagitis; I10 Essential (primary) hypertension; E78.00 Pure hypercholesterolemia, unspecified; F32.9 Major depressive disorder, single episode, unspecified; J44.9 Chronic obstructive pulmonary disease, unspecified; E66.01 Morbid (severe) obesity due to excess calories; Z68.42 Body mass index [BMI] 45.0-49.9, adult; Z86.73 Personal history of transient ischemic attack (TIA), and cerebral infarction without residual deficits; Z87.891 Personal history of nicotine dependence; Z79.82 Long term (current) use of aspirin; Z88.0 Allergy status to penicillin

== ENCOUNTER → 2018-01-23 | Outpatient (CLI) | payer OTHER ==
[~2018-01-23] MED LIST changes: -500ML BSS 0.3ML EPI 1:1000PF IRRIG ONE; -ACETAMINOPHEN 325 MG TAB PO PRN; -AMVISC PLUS 0.8ML SYRINGE INT OCU ONE; -ATROPINE SULFATE 0.1 MG/ML 5ML SYR IV PRN; +BENZ1CAP90 PO; -BSS FLUSH ONE; +CETI1CAP3 PO; +CIPR-255 PO; +CLOTCRE5 TOP; -ENDOCOAT 0.85ML SYRINGE INT OCU ONE; -EpHEDrine SULFATE INJ 50 MG/ML AMP IV PRN; -EpINEphrine INJ 1MG/ML AMP 1 MG/ML AMP ONE; +GUAI100S66 PO; -LACTATED RINGER'S 1000ML 500 ML IV SCH; -LIDOCAINE 4% OP SOLN DROP CHARGE ONE; -LIDOCAINE 4% OP SOLN DROP CHARGE OPR SCH; -LIDOCAINE HCL 1% MPF 2 ML VIAL ONE; -MIDAZOLAM HCL 1 MG/ML 2ML VIAL ONE; -MIX: 4ML BSS 1ML EPI 1:1000 PF TOP ONE; -MOXIFLOXACIN OPH SOLN PER DROP CHARGE ONE; +OXYBPOW PO; +PHEN-775 PO; -POVIDONE-IODINE OP SOLN 30 ML BTL ONE; -PROPARACAINE 0.5% OP SOLN PER DROP CHARGE OPR SCH; -TOBRAMYCIN/DEXAMETHASONE OPH OINT PER APPLN CHARGE ONE; +[UNRECOGNIZED DRUG - CODE] PO
--- NOTE | 2018-02-09 12:10 | CODING QUERY NO DIAGNOSIS ---
TREATMENT RENDERED WITHOUT A DIAGNOSIS Doris HORNE, To promote full compliance with coding requirements relating to patient care, physician participation is requested in all cases of laundry helper uncertainty. Please assist us with providing a diagnosis/symptom for the test(s) below: A diagnosis/symptom was not documented on your Order. A valid diagnosis/symptom is required to bill all insurances. Please remember that we are unable to code a diagnosis of rule out, probable, possible, questionable, or suspected. Tests that require a diagnosis: * URINE CULTURE DIAGNOSIS: * URINE M.I.C. SENSITIVITY DIAGNOSIS: * ID, URINE CULTURE ISOLATE DIAGNOSIS: * URINALYSIS W/ MICROSCOPY DIAGNOSIS: DATE OF SERVICE: 01/23/18 Provider Signature: Date: Thank you M[facility] Information Management Once completed, please kindly fax back to [phone] For questions please call [phone]
== END | disposition home or self-care (01) ==
LOC: C.LABSPEC 19:47
PROVIDERS: ATTEND Nurse Practitioner Family
DX: R35.0 Frequency of micturition (principal)

== ENCOUNTER → 2018-02-01 | Outpatient (CLI) | payer OTHER ==
[2018-02-01 09:07] LABS: HEMATOCRIT 39.1 % (37-47); HEMOGLOBIN 12.5 g/dL (12.0-16.0); MEAN CELL VOLUME 96.5 fL (80-100); MEAN CORPUSCULAR HEMOGLOBIN 30.9 pg (25-34); MEAN PLATELET VOLUME 10.8 fL (7.4-10.4); PLATELET COUNT 213 K/uL (130-400); RED CELL DISTRIBUTION WIDTH CV 14.3 % (11.5-14.5); RED CELL DISTRIBUTION WIDTH SD 50.8 fL (36.4-46.3); WHITE BLOOD COUNT 7.94 K/uL (4.8-10.8)
[2018-02-01 09:22] LABS: BLOOD UREA NITROGEN 17 mg/dl (7-18); CALCIUM 8.5 mg/dl (8.5-10.1); CARBON DIOXIDE 28 mmol/L (21-32); CREATININE 0.97 mg/dl (0.60-1.20); GLUCOSE 100 mg/dl (70-99); SODIUM 141 mmol/L (136-145)
== END ==
LOC: C.LABUPNIT 08:40
PROVIDERS: ATTEND Nurse Practitioner Family
DX: Z01.818 Encounter for other preprocedural examination (principal)

== ENCOUNTER → 2018-02-05 | Outpatient (CLI) | payer OTHER | LOC: C.LABUPNIT 09:06 | PROVIDERS: ATTEND Nurse Practitioner Family | DX: Z01.812 Encounter for preprocedural laboratory examination (principal) ==

== ENCOUNTER 2018-02-12 08:15 | Day surgery (SDC) | payer OTHER ==
[2018-02-06 10:20] VITALS: BMI 49.0
--- NOTE | 2018-02-06 15:22 | PAT Medication Instructions ---
Service Date Feb 06, 2018. Current Home Medication List Acetaminophen (Tylenol), 650 MG PO Q4H PRN for Fever or Headache Aluminum/Magnesium/Simeth (Maalox Max Susp), 15 ML PO DAILY PRN for Indigestion Aripiprazole (Abilify), 5 MG PO DAILY Aspirin (Aspirin Chewable), 81 MG PO DAILY Baclofen (Lioresal), 10 MG PO TID Benzonatate (Tessalon Perles), 200 MG PO Q8H PRN for Cough Bisacodyl (Dulcolax), 1 SUPP TN DAILY PRN for Constipation Bupropion (Wellbutrin Sr), 450 MG PO DAILY Buspirone Hcl (Buspirone Hcl), 10 MG PO BID Clotrimazole (Topical) (Clotrimazole Anti-Fungal), 1 APPL TOP BID PRN for EXCORIATION Cranberry (Vaccinium Macrocarp (Cranberry), 1 TAB PO DAILY Dicyclomine Hcl (Dicyclomine Hcl), 10 MG PO Q6H PRN for ABD CRAMPING Docusate Sodium (Docusate Sodium), 1 CAP PO BID Fentanyl (Fentanyl), 1 DOSE TOP Q72H Guaifenesin (Guaifenesin), 10 ML PO Q6 PRN for Cough Magnesium Hydroxide (Milk Of Magnesia), 30 ML PO DIRECTED PRN for Constipation Magnesium Oxide (Mag-Ox), 400 MG PO DAILY Meloxicam (Mobic), 15 MG PO DAILY Menthol (Mouth-Throat) (Ra Cough Drops), 1 INDERJIT PO Q3H PRN for SORE THROAT Omeprazole (Prilosec), 20 MG PO DAILY Oxybutynin Chloride (Oxybutinin Chloride), 5 MG PO Q8 PRN for BLADDER SPASM Oxycodone Hcl (Oxycodone Hcl), 1 TAB PO QID PRN for Pain Probiotic Product (Probiotic), 1 CAP PO BID Ranitidine (Zantac), 2 TAB PO BID Sennosides (Senokot), 2 TAB PO DAILY Simethicone (Bicarsim), 2 TAB PO DIRECTED PRN for GAS PAIN Simvastatin (Zocor), 20 MG PO QPM Sodium Phosphates (Fleet Enema Six Pack), 1 DOSE TN DIRECTED PRN for Constipation Medication Instructions For Your Scheduled Surgery - Continue as directed: Simvastatin (Zocor), 20 MG PO QPM - Check with surgeon (Dr. Toney) and prescribing physician for instructions: Meloxicam (Mobic), 15 MG PO DAILY Aspirin (Aspirin Chewable), 81 MG PO DAILY - Hold the following medications starting 02/07/18: Cranberry (Vaccinium Macrocarp (Cranberry), 1 TAB PO DAILY - Hold the following medications the morning of surgery: Aluminum/Magnesium/Simeth (Maalox Max Susp), 15 ML PO DAILY PRN for Indigestion Baclofen (Lioresal), 10 MG PO TID Benzonatate (Tessalon Perles), 200 MG PO Q8H PRN for Cough Bisacodyl (Dulcolax), 1 SUPP TN DAILY PRN for Constipation Clotrimazole (Topical) (Clotrimazole Anti-Fungal), 1 APPL TOP BID PRN for EXCORIATION Dicyclomine Hcl (Dicyclomine Hcl), 10 MG PO Q6H PRN for ABD CRAMPING Docusate Sodium (Docusate Sodium), 1 CAP PO BID Guaifenesin (Guaifenesin), 10 ML PO Q6 PRN for Cough Magnesium Hydroxide (Milk Of Magnesia), 30 ML PO DIRECTED PRN for Constipation Magnesium Oxide (Mag-Ox), 400 MG PO DAILY Menthol (Mouth-Throat) (Ra Cough Drops), 1 INDERJIT PO Q3H PRN for SORE THROAT Oxybutynin Chloride (Oxybutinin Chloride), 5 MG PO Q8 PRN for BLADDER SPASM Probiotic Product (Probiotic), 1 CAP PO BID Ranitidine (Zantac), 2 TAB PO BID Sennosides (Senokot), 2 TAB PO DAILY Simethicone (Bicarsim), 2 TAB PO DIRECTED PRN for GAS PAIN Sodium Phosphates (Fleet Enema Six Pack), 1 DOSE TN DIRECTED PRN for Constipation - Take the following medications the morning of surgery with a sip of water: Oxycodone Hcl (Oxycodone Hcl), 1 TAB PO QID PRN for Pain (okay to take up to 4 hours prior to surgery if needed) Acetaminophen (Tylenol), 650 MG PO Q4H PRN for Fever or Headache (okay to take up to 4 hours prior to surgery if needed) Omeprazole (Prilosec), 20 MG PO DAILY Fentanyl (Fentanyl), 1 DOSE TOP Q72H (avoid placement of patch over surgery site ) Bupropion (Wellbutrin Sr), 450 MG PO DAILY Buspirone Hcl (Buspirone Hcl), 10 MG PO BID Aripiprazole (Abilify), 5 MG PO DAILY If you have any questions please call us at [phone] or [phone] or [phone]
[~2018-02-12] VITALS: Ht 165.1 cm; Wt 137.5 kg
[~2018-02-12 08:15] MED LIST changes: -CETI1CAP3 PO; -CIPR-255 PO; +CIPROFLOXACIN / D5W 400 MG IV SCH; +LACTATED RINGER'S 1000ML 1,000 ML IV SCH; -PHEN-775 PO
[2018-02-12] MEDS ORDERED: LIDOCAINE HCL 2% 2 ML VIAL (20MG/ML) ONE (08:24)
[2018-02-12] MEDS ORDERED: PROPOFOL IV EMULSION 10 MG/ML 20 ML VIAL ONE ×2 (08:24→09:53)
[2018-02-12] MEDS ORDERED: FENTANYL CITRATE INJ 50 MCG/1 ML 2 ML VIAL ONE (08:25)
[2018-02-12] MEDS ORDERED: MIDAZOLAM HCL 1 MG/ML 2ML VIAL ONE (08:25)
[2018-02-12] MEDS ORDERED: ONDANSETRON INJ 2 MG/ML 2 ML VIAL ONE (08:28)
[2018-02-12] MEDS ORDERED: NALOXONE HCL 0.4 MG/1 ML VIAL/CARP IV PRN (08:30)
[2018-02-12] MEDS ORDERED: LABETALOL HCL IV 5 MG/ML 20ML IV PRN (08:30)
[2018-02-12] MEDS ORDERED: FENTANYL CITRATE INJ 50 MCG/1 ML 2 ML VIAL IV PRN (08:30)
[2018-02-12] MEDS ORDERED: EpHEDrine SULFATE INJ 50 MG/ML AMP IV PRN (08:30)
[2018-02-12] MEDS ORDERED: MEPERIDINE HCL 25 MG/ML CARP IV PRN (08:30)
[2018-02-12] MEDS ORDERED: ONDANSETRON INJ 2 MG/ML 2 ML VIAL IV PRN (08:30)
[2018-02-12] MEDS ORDERED: ATROPINE SULFATE 0.1 MG/ML 5ML SYR IV PRN (08:30)
[2018-02-12] MEDS ORDERED: FLUMAZENIL 0.1 MG/1 ML 10 ML VIAL IV PRN (08:30)
[2018-02-12] MEDS ORDERED: PHENYLEPHRINE 100MCG/ML 5ML SYR IV PRN (08:30)
[2018-02-12 08:49] VITALS: BP 149/91; PULSE 81; TEMP 37; O2SAT 96; Ht 165.1 cm; Wt 137.5 kg
--- NOTE | 2018-02-12 08:55 | History and Physical ---
History & Physical Date Feb 12, 2018. Chief Complaint Dysuria, Hematuria History of Present Illness The patient is a 63 year old female with complaints of severe dysuria, leaking, and irritation with UTI and incontinence. Bed bound. Major bother with urinary issues and poor control. overall poor health with multiple medical issues and immobility. No change in issues. Continues to have major bother with severe LUTS. pain in pelvis and groin with burning and discomfort in waves. Past Medical/Surgical History All reviewed. See extensive list on previous note. Additional History Hepatic Disease: Yes Endocrine Disorder: Yes Kidney Disease: Yes Hypertension: Yes Heart Disease: Yes Bleeding Tendencies: No Infectious Diseases: Yes Allergies Coded Allergies: Penicillins (Verified Allergy, Unknown, ., 02/12/18) Pregabalin (Verified Allergy, Unknown, ., 02/12/18) Tramadol (Verified Allergy, Unknown, ., 02/12/18) Home Medications Scheduled Aripiprazole (Abilify), 5 MG PO DAILY Aspirin (Aspirin Chewable), 81 MG PO DAILY Baclofen (Lioresal), 10 MG PO TID Bupropion (Wellbutrin Sr), 450 MG PO DAILY Buspirone Hcl (Buspirone Hcl), 10 MG PO BID Cranberry (Vaccinium Macrocarp (Cranberry), 1 TAB PO DAILY Docusate Sodium (Docusate Sodium), 1 CAP PO BID Fentanyl (Fentanyl), 1 DOSE TOP Q72H Magnesium Oxide (Mag-Ox), 400 MG PO DAILY Meloxicam (Mobic), 15 MG PO DAILY Omeprazole (Prilosec), 20 MG PO DAILY Probiotic Product (Probiotic), 1 CAP PO BID Ranitidine (Zantac), 2 TAB PO BID Sennosides (Senokot), 2 TAB PO DAILY Simvastatin (Zocor), 20 MG PO QPM Scheduled PRN Acetaminophen (Tylenol), 650 MG PO Q4H PRN for Fever or Headache Aluminum/Magnesium/Simeth (Maalox Max Susp), 15 ML PO DAILY PRN for Indigestion Benzonatate (Tessalon Perles), 200 MG PO Q8H PRN for Cough Bisacodyl (Dulcolax), 1 SUPP IA DAILY PRN for Constipation Clotrimazole (Topical) (Clotrimazole Anti-Fungal), 1 APPL TOP BID PRN for EXCORIATION Dicyclomine Hcl (Dicyclomine Hcl), 10 MG PO Q6H PRN for ABD CRAMPING Guaifenesin (Guaifenesin), 10 ML PO Q6 PRN for Cough Magnesium Hydroxide (Milk Of Magnesia), 30 ML PO DIRECTED PRN for Constipation Menthol (Mouth-Throat) (Ra Cough Drops), 1 INDERJIT PO Q3H PRN for SORE THROAT Oxybutynin Chloride (Oxybutinin Chloride), 5 MG PO Q8 PRN for BLADDER SPASM Oxycodone Hcl (Oxycodone Hcl), 1 TAB PO QID PRN for Pain Simethicone (Bicarsim), 2 TAB PO DIRECTED PRN for GAS PAIN Sodium Phosphates (Fleet Enema Six Pack), 1 DOSE IA DIRECTED PRN for Constipation Physical Examination Skin: warm/dry, no rash Eyes: normal inspection ENT: normal ENT inspection Head: normocephalic, atraumatic Neck: trachea midline Respiratory/Chest: no respiratory distress Cardiovascular: regular rate, rhythm Abdomen / GI: non tender, + pertinent finding (Super morbid obesity) Extremities: + pertinent finding (edema. ) Neurologic/Psych: no motor/sensory deficits, alert, normal reflexes, oriented x 3 Diagnosis 1. Hematuria 2. Dysuria 3. Incontinence ASA Classification: ASA Class III Plan of Treatment Plan to proceed with cystoscopy and biopsy and fulguration with possible TURBT. risks and benefits discussed at length.
--- NOTE | 2018-02-12 08:59 | Discharge Instructions ---
Discharge Instructions Date of Service Feb 12, 2018. Admission Reason for Admission: Bladder Lesion Discharge Discharge Diagnosis / Problem: hematuria, incontinence Discharge Goals Goal(s): Decrease discomfort, Improve function Activity Recommendations Activity Limitations: resume your previous activity Lifting Limitations: gradually increase as tolerated Exercise/Sports Limitations: gradually increase as tolerated . Instructions / Follow-Up Instructions / Follow-Up May have blood in urine. May have pelvic discomfort. Call if any fevers or chills. Current Hospital Diet Patient's current hospital diet: Discharge Diet Recommended Diet: Regular Diet Procedures Procedures Performed: Cystoscopy with biopsy and fulguration Pending Studies Studies pending at discharge: no Medical Emergencies . Who to Call and When: Medical Emergencies: If at any time you feel your situation is an emergency, please call 911 immediately. . Non-Emergent Contact Non-Emergency issues call your: Primary Care Provider Call Non-Emergent contact if: you have a fever, temperature is above 101, temperature is above 101.5, your pain is not controlled, your pain is worsening . . "Provider Documentation" section prepared by Tyree Toney. .
[2018-02-12] MEDS ORDERED: CIPR-255 PO (09:02)
[2018-02-12] MEDS ORDERED: PHEN-775 PO (09:02)
[2018-02-12] MEDS ORDERED: OXYCODONE/ACETAMINOPHEN 7.5-325 TAB PO PRN (09:15)
[2018-02-12] MEDS ORDERED: CETI1CAP3 PO (09:21)
[2018-02-12] MEDS ORDERED: BELLADONNA/OPIUM SUPP 60 MG SUPP PR ONE ×2 (09:43→10:13)
--- NOTE | 2018-02-12 09:59 | [facility] Operative Report ---
Operative Report Operative Date Feb 12, 2018. Pre-Operative Diagnosis Hematuria, Incontinence Post-Operative Diagnosis Same Procedure(s) Performed Cystoscopy with biopsy and fulguration Surgeon Feng Estimated Blood Loss Minimal Findings Small Contracted bladder with irritation vs lesion of bladder. Specimens 1 Left Lateral Wall Biopsy x 3 2. Right Trigone Biopsy bladder x 1 3. Posterior bladder biopsy x 1 Drains None Anesthesia Type MAC Complication(s) none Disposition Recovery Room / PACU Indications Hematuria and severe incontinence with major bother. Risks and benefits discussed at length. Description of Procedure Patient was consented and brought back to the operating room. Patient was placed under anesthesia in the supine position and moved to the dorsal lithotomy position. Patient was prepped and draped in the regular sterile fashion. A time out was completed. A 30degree Cystoscope was placed into the bladder and the entire bladder was examined. The UO's were identified. The patients bladder was noted to be thickened and small and contracted in appearance and had multiple significant contractions during the procedure. The lesions and areas of erythema were noted. These were biopsied and sent for analysis. The areas were then fulgurated. The bladder was inspected a final time. The scope was removed after the bladder was emptied. The patient was cleaned, aroused from anesthesia, and transferred to the pacu in stable condition having tolerated the procedure well with no complications. A B&O suppository was placed into the rectum. I was present and participated in all aspects of the procedure. The patient will be monitored in the PACU until transferred. Will discuss options at follow up. Will likely need management for low volume. I attest to the content of the Intraoperative Record and any orders documented therein. Any exceptions are noted below.
[2018-02-12 10:10] VITALS: BP 153/100; PULSE 85; TEMP 36.4; O2SAT 99
--- NOTE | 2018-02-12 10:16 | Anesthesiology Progress Note ---
Anesthesia Post Op Note Date & Time Feb 12, 2018 at 10:16 Vital Signs Pain Intensity: 0 Vital Signs Past 12 Hours Date Time Temp Pulse Resp B/P (MAP) Pulse Ox O2 Delivery O2 Flow Rate FiO2 02/12/18 08:49 37 81 20 149/91 (110) 96 Room Air Notes Mental Status: alert / awake / arousable, participated in evaluation Pt Amnestic to Procedure: Yes Nausea / Vomiting: adequately controlled Pain: adequately controlled Airway Patency, RR, SpO2: stable & adequate BP & HR: stable & adequate Hydration State: stable & adequate Anesthetic Complications: no major complications apparent The patient is awake and stable in recovery.
[2018-02-12 10:40] VITALS: BP 174/81; PULSE 84; TEMP 36.4; O2SAT 98
[2018-02-12 11:10] VITALS: BP 168/85; PULSE 80; TEMP 36.3; O2SAT 99
== END 2018-02-12 11:48 | disposition home or self-care (01) ==
LOC: C.ACU 08:15
PROVIDERS: ATTEND Urology
DX: R30.0 Dysuria (principal); R31.9 Hematuria, unspecified; R32 Unspecified urinary incontinence; G47.33 Obstructive sleep apnea (adult) (pediatric); E78.5 Hyperlipidemia, unspecified; K21.9 Gastro-esophageal reflux disease without esophagitis; M19.90 Unspecified osteoarthritis, unspecified site; E66.9 Obesity, unspecified; Z88.0 Allergy status to penicillin; Z88.8 Allergy status to other drugs, medicaments and biological substances; Z88.5 Allergy status to narcotic agent; Z79.82 Long term (current) use of aspirin; Z86.73 Personal history of transient ischemic attack (TIA), and cerebral infarction without residual deficits; Z68.42 Body mass index [BMI] 45.0-49.9, adult

== ENCOUNTER 2020-04-27 09:57 | Inpatient (IN) ==
[2020-04-27] MEDS ORDERED: SODIUM CHLORIDE 0.9% 1000ML 1,000 ML IV SCH (11:30)
[2020-04-27 12:08] LABS: Hematocrit (blood only) 27.6 % (37-47); Hemoglobin 8.7 g/dL (12.0-16.0); Mean Corpuscular Hemoglobin 25.3 pg (25-34); Mean Corpuscular Hgb Conc 31.5 g/dL (32-36); Mean Corpuscular Volume 80.2 fL (80-100); Mean Platelet Volume 9.1 fL (7.4-10.4); Platelet Count 431 K/uL (130-400); RDW Coefficient of Variation 18.6 % (11.5-14.5); RDW Standard Deviation 54.5 fL (36.4-46.3); Red Blood Count 3.44 M/uL (4.2-5.4); White Blood Count 26.36 K/uL (4.8-10.8)
--- NOTE | 2020-04-27 12:19 | XRay Report ---
XR chest 1V portable CLINICAL HISTORY: weakness COMPARISON STUDY: 09/25/2019 FINDINGS: The cardiac and mediastinal contours are normal. There is no evidence of focal pulmonary co nsolidation. There is no evidence of failure. No pleural effusions are visualized.[ Left proximal humerus is visualized IMPRESSION: No active disease in the chest. ACT 112: Negative or not required by law. Electronically signed by: Denton Cerda M.D. 04/27/2020 12:17 PM
[2020-04-27 12:27] LABS: Albumin Level 1.6 gm/dl (3.4-5.0); BUN Creatinine Ratio 12.3 (10-20); Calcium 9.1 mg/dl (8.5-10.1); Creatinine Clr Calc Pharmacy 35.7 ml/min; Est GFR (African American) 26.3; Est GFR (Non-African American) 22.7; Magnesium 2.6 mg/dl (1.8-2.4); Potassium 4.7 mmol/L (3.5-5.1)
[2020-04-27 12:37] LABS: Albumin Globulin Ratio 0.3 (0.9-2); Bilirubin,Total 1.2 mg/dl (0.2-1); Globulin 6.2 gm/dl (2.5-4.0); Thyroid Stimulating Hormone 0.68 uIu/ml (0.300-4.500); Total Protein 7.8 gm/dl (6.4-8.2)
[2020-04-27 12:49] LABS: Basophils # (auto) 0.03 K/uL (0-0.2); Basophils % (auto) 0.1 %; Eosinophils # (auto) 0.17 K/uL (0-0.5); Eosinophils % (auto) 0.6 %; Immature Granulocytes # (auto) 0.18 K/uL (0.00-0.02); Immature Granulocytes % (auto) 0.7 %; Lymphocytes # (auto) 1.57 K/uL (1.2-3.4); Monocytes # (auto) 1.58 K/uL (0.11-0.59); Neutrophils # (auto) 22.83 K/uL (1.4-6.5); Neutrophils % (auto) 86.6 %; Rouleaux 1+
[2020-04-27] MEDS ORDERED: ERTAPENEM SODIUM 10 ML IV STA (13:01)
[2020-04-27] MEDS ORDERED: DAPTOmycin 350 MG in SYRINGE 0 ML IV ONE (13:02)
--- NOTE | 2020-04-27 14:29 | CT Scan Report ---
CT SCAN OF THE ABDOMEN AND PELVIS WITHOUT CONTRAST CLINICAL HISTORY: Acute renal failure. Elevated white count. Possible obstruction. COMPARISON STUDY: 05/23/2018 TECHNIQUE: CT scan of the abdomen and pelvis was performed from the lung bases to the proximal femurs . Images are reviewed in the axial, sagittal, and coronal planes. IV contrast was not administered fo r this examination. A dose lowering technique was utilized adhering to the principles of ALARA. CT DOSE: 1077.42 mGycm FINDINGS: Lower chest: There is mild basilar atelectasis. There are coronary artery calcifications Liver: There are stable dystrophic calcifications within the right hepatic lobe. Gallbladder: Surgically absent Spleen: Normal in size and attenuation. Pancreas: Unremarkable. Adrenal glands: Unremarkable. Kidneys: There is mild bilateral hydronephrosis. No ureteral or bladder calculi are visualized. There is equivocal increased density of the right renal pelvis. Hemorrhage cannot be excluded Bowel: There are no transition zones indicate bowel obstruction. By history the appendix is surgicall y absent. There is no evidence of acute diverticulitis. Peritoneum: There is no intraperitoneal free air or abdominal ascites. Is a small fat-containing umbi lical hernia Vasculature: The abdominal aorta is normal in course and caliber. Adenopathy: None. Pelvic viscera: The uterus appears surgically absent Skeletal structures: There are chronic bilateral proximal femoral deformities with advanced arthritic change. There is no evidence for a lytic bone disease. IMPRESSION: 1. Technically limited study secondary to streak artifact given the patient's large body habitus 2. No evidence of bowel obstruction. No evidence of free air 3. Surgically absent appendix. No evidence of acute diverticulitis 4. Mild bilateral hydronephrosis. No ureteral or bladder calculi identified 5. Equivocal slight increased density at the right renal pelvis. Hemorrhage cannot be excluded ACT 112: Negative or not required by law. Electronically signed by: Denton Cerda M.D. 04/27/2020 2:27 PM
--- NOTE | 2020-04-27 15:44 | History & Physical Report ---
Date of Service April 27, 2020 Assessment & Plan (1) UTI (urinary tract infection): Continue ertapenem and daptomycin. Follow up blood and urine cultures. (2) Acute kidney injury: Suspect pre-renal in setting of NSAID use (confirmed taking both meloxicam and naproxen). Hold NSAIDs and aspirin. Possible renal hemorrhage (see below for microscopic hematuria). No postobstructive cause on CT. NSS @ 175 ml/hr. Repeat BMP with a.m. labs. (3) Anemia: Repeat H&H @ 9pm with iron studies, type and screen, B12 and folate. Pantoprazole 40mg IV BID. Hold NSAIDs as above. Fecal occult blood. Consider GI consult in AM. Possibly secondary to hematuria (see below). (4) Microscopic hematuria: UA with RBC positive since August although possibly in the setting of U TIs this is more concerning given CT equivocal for right renal pelvis hemorrhage, current anemia and acute kidney injury. Consult urology. (5) Abnormal CT of the abdomen: As above for microscopic hematuria. (6) Right shoulder pain: Recommend MRI with and without IV contrast once renal function improved to assess for infection given similar symptoms to prior osteomyelitis. Will initially get XR right shoulder as MRI not currently possible. (7) GERD (gastroesophageal reflux disease): Switch omeprazole for pantoprazole IV as above. (8) T2DM (type 2 diabetes mellitus): HbA1C with AM labs. Hold linagliptin and empagliflozin. Start Lantus 10 units twice daily. NovoLog sliding scale ACHS, aim 100-140, correction 25 mg/dL/unit, carb ratio 1 unit / 8g. (9) History of MRSA infection: Contact precautions. (10) H/O recurrent urinary tract infection: Recommend not restarting Jardiance on discharge as this will significantly increase her risk of urine tract infections. (11) DVT prophylaxis: SCDs. No chemical prophylaxis due to potential GI bleed versus renal hemorrhage as above. Admission and Anticipated Discharge Date Admission Date: 04/27/2020 History of Present Illness Chief Complaint: Dizziness, weakness, right shoulder pain Primary Care Provider: [facility] Debbie Hardy is a 65 year old female resident of [facility] who presents to the ER with dizziness, weakness, right shoulder pain. Her main concern currently is her left shoulder jerking which she reports started yesterday. History taking is limited from the patient due to short-term memory loss and unclear timing of events. She denies any fevers, chills, back/flank pain, increased urinary frequency, dysuria, urine incontinence, change in smell, color. No chest pain, abdominal pain, nausea, vomiting, change in bowels. Her daughter is power of claim attorney at bedside who reports her right shoulder has been bothering the patient for the last month. Progressively getting worse. Outpatient x-ray showed osteoarthritis and no further follow-up was done for this. She is concerned because the patient had osteomyelitis in her left shoulder with very similar complaints. At baseline the patient is wheelchair- bound. More confused than her baseline per patient's daughter. In the ER concern for WBC 26.36 with likely source of urine given history of recurrent UTIs and suggestive urinalysis. Due to history of ESBL and MRSA she was started on ertapenem and daptomycin. In addition creatinine elevated at 2.23 consistent with SOLEDAD - Fallon catheter placed. Allergies Allergy/AdvReac Type Severity Reaction Status Date / Time Penicillins Allergy Unknown . Verified 04/27/20 11:04 pregabalin Allergy Unknown . Verified 04/27/20 11:04 tramadol Allergy Unknown . Verified 04/27/20 11:04 Home Medications Home Medications Medication Instructions Recorded Confirmed Type acetaminophen [Tylenol] 325 mg PO Q4H PRN 05/23/18 04/27/20 History aspirin 81 mg PO QAM 05/23/18 04/27/20 History baclofen 10 mg PO TID 05/23/18 04/27/20 History bupropion HCl 450 mg PO QAM 05/23/18 04/27/20 History buspirone 10 mg PO DAILY@1600 05/23/18 04/27/20 History dicyclomine 10 mg PO Q6H PRN 05/23/18 04/27/20 History fentanyl 1 patch TRANSDERMAL Q72H 05/23/18 04/27/20 History meloxicam 15 mg PO QAM 05/23/18 04/27/20 History omeprazole 20 mg PO QAM 05/23/18 04/27/20 History oxybutynin chloride 10 mg PO HS 05/23/18 04/27/20 History sennosides-docusate sodium 1 tab PO HS 05/23/18 04/27/20 History [Senokot-S] simvastatin 20 mg PO HS 05/23/18 04/27/20 History D-Mannose 500mg Capsule 1,000 mg PO BID 09/25/19 04/27/20 History cholecalciferol (vitamin D3) 5,000 unit PO QAM 09/25/19 04/27/20 History [Vitamin D3] cyanocobalamin (vitamin B-12) 1,000 mcg IM SUMNER 09/25/19 04/27/20 History vitamin B complex 1 tab PO QAM 09/25/19 04/27/20 History aripiprazole 5 mg PO QAM 04/27/20 04/27/20 History empagliflozin [Jardiance] 25 mg PO DAILY 04/27/20 04/27/20 History linagliptin [Tradjenta] 5 mg PO QAM 04/27/20 04/27/20 History mineral oil-isopropyl myristat 1 applic TOPICAL BID 04/27/20 04/27/20 History [Eucerin] naproxen 500 mg PO BID 04/27/20 04/27/20 History Past Med/Surg History Medical History Anxiety and depression Bladder spasms Bone infection Chronic pain Dysuria GERD (gastroesophageal reflux disease) Gross hematuria H/O recurrent urinary tract infection H/O: CVA (cerebrovascular accident) History of MRSA infection Hx: UTI (urinary tract infection) Incontinence Left thigh pain Lesion of bladder Morbid obesity Osteomyelitis Surgical History History of cataract surgery S/P cholecystectomy Family History Mother Hypertension Social History Smoking Status: Former smoker Tobacco Type: Cigarettes Second Hand Exposure: No; Hx Alcohol Use: No Hx Substance Use: No Preferred Language: Micronesian Communication Ability: Impaired Visual Impairment: No Limitations Signal And Communications Maintainer Required: No Beliefs That Will Affect Care: None marital status: Current Living Situation: Personal Care Facility Current Living Situation Comment: [facility] Feels Safe at Home: Yes Safety Concerns: Feels Safe At This Time Assistive Devices: Oxygen - at Night Review of Systems Review of Systems: All systems reviewed & are unremarkable except as noted in HPI & below Chronic pain - patient on fentanyl patch at senior care although concern patch removed in ER was dated 04/19. Daughter is power of claim attorney and unaware she was on a fentanyl patch. Right shoulder pain as noted in HPI however this is only on movements and she has no pain at rest. Both patient and daughter expressed wish for fentanyl patch to be discontinued. Physical Exam Constitutional: well developed; + not well nourished and no acute distress Eyes: PERRL, conjunctivae normal, anicteric sclerae ENMT: Ears: no external ear abnormality Nose: no external nose abnormality Mouth: + dry oral mucous membranes Neck: trachea midline, no thyromegaly Respiratory: normal respiratory effort, lungs clear to auscultation Cardiovascular: Rate/Rhythm: regular rhythm and + tachycardic Heart Sounds: no murmur Extremities: normal capillary refill and + pedal edema (Trace bilateral ankles); no calf tenderness Gastrointestinal (Abdomen): Inspection/Auscultation: abdomen normal to inspection (Obese) and normal bowel sounds Percussion/Palpation: abdomen soft; abdomen nontender, no guarding and abdomen not rigid Musculoskeletal: no cyanosis or clubbing, extremities motor strength 5/5 Skin: no rashes, warm and dry (No areas of cellulitis) Neurologic: moves all extremities and awake; no focal motor deficits (No lateralizing deficit) and not confused Speech / Cognition: normal speech Motor/Sensory: no tremor and no pronator drift Psychiatric: Orientation: alert and oriented x 3 Affect: + anxious affect Genitourinary: no CVA tenderness Lymphatic: no cervical or axillary lymphadenopathy Results & Data Results & Data ([facility]) Vital Signs (Past 12 Hours) Vital Signs Temp Pulse Resp BP Pulse Ox 04/27/20 13:03 95 04/27/20 13:00 84 14 155/89 H 100 04/27/20 12:55 99 H 14 116/92 97 04/27/20 12:45 92 H 13 93 04/27/20 12:30 94 H 18 155/89 H 93 04/27/20 12:15 98 H 15 94 04/27/20 12:00 96 H 20 93 04/27/20 11:45 83 19 96 04/27/20 11:32 94 04/27/20 11:30 87 14 96 04/27/20 11:15 113 H 24 96 04/27/20 11:00 89 12 96 04/27/20 10:45 101 H 17 96 04/27/20 10:30 101 H 18 92 04/27/20 10:15 93 H 14 04/27/20 10:10 36.9 C 98 H 18 163/80 H 95 04/27/20 10:07 103 H 13 95 04/27/20 10:02 103 H 16 163/97 H 92 Diagnostic Findings XR chest 1V portable IMPRESSION: No active disease in the chest. CT SCAN OF THE ABDOMEN AND PELVIS WITHOUT CONTRAST IMPRESSION: 1. Technically limited study secondary to streak artifact given the patient's large body habitus 2. No evidence of bowel obstruction. No evidence of free air 3. Surgically absent appendix. No evidence of acute diverticulitis 4. Mild bilateral hydronephrosis. No ureteral or bladder calculi identified 5. Equivocal slight increased density at the right renal pelvis. Hemorrhage cannot be excluded ECG Indication: altered mental status Rate (beats per minute): 94 Rhythm: normal sinus Findings: no acute ischemic change Comparison ECG Date: no prior available PG Care Time/CCT Total # of Minutes Spent Total Time Spent with Patient: Total time spent is greater than 50% in coordination of care (as documented) at patient's floor/unit and/or counseling patient: Coding Level of Care Code 97781 Initial Inpt Care Lvl 3 Diagnoses UTI (urinary tract infection) N39.0 Acute kidney injury N17.9 Anemia D64.9 Microscopic hematuria R31.[address] of the abdomen R93.5 Right shoulder pain M25.511 GERD (gastroesophageal reflux disease) K21.9 T2DM (type 2 diabetes mellitus) E11.9 History of MRSA infection Z86.14 H/O recurrent urinary tract infection Z87.440 DVT prophylaxis Z29.9
[2020-04-27 15:46] LABS: Appearance Urine Turbid (Clear); Bacteria Urine Automated 4+ (Negative); Bilirubin Urine Negative (Negative); Blood Urine 3+ (Negative); Color Urine Yellow; Epithelial Cell Urine Auto >30 /lpf (0-5); Glucose Urine UA 3+ (Negative); Ketones Urine Negative (Negative); Leukocyte Esterase Urine 3+ (Negative); Nitrite Urine Positive (Negative); Protein Urine 2+ (Negative); RBC Urine Automated >30 /hpf (0-4); Specific Gravity Urine 1.017 (1.000-1.030); Urobilinogen Urine Negative (Negative); WBC Urine Automated >30 /hpf (0-5)
[2020-04-27 15:57] LABS: Cast Urine Automated 0 /lpf (0-5)
--- NOTE | 2020-04-27 16:09 | Electrocardiogram Report ---
Test Reason : Blood Pressure : / mmHG Vent. Rate : 094 BPM Atrial Rate : 094 BPM P-R Int : 156 ms QRS Dur : 088 ms QT Int : 360 ms P-R-T Axes : 053 052 056 degrees QTc Int : 450 ms Normal sinus rhythm Normal ECG No previous ECGs available Confirmed by Bari Horton ([id number]) on 04/27/2020 4:09:30 PM Referred By: [facility] Confirmed By:Bari Horton
--- NOTE | 2020-04-27 18:43 | Emergency Department Note ---
History of Present Illness General Chief complaint: Illness Time Seen by Provider: 04/27/20 10:41 Source: patient, family (Daughter), RN notes reviewed, old records reviewed and other (shelter records) Mode of arrival: EMS Limitations: altered mental status (Questionable cognition/reliability) History of Present Illness Provider complaint: Altered mental status This patient is a 65-year-old female who presents to the emergency department from the retirement with complaints of "not feeling right this morning" upon awakening. The patient is noted to have a fentanyl patch in place by nursing staff which was removed. They states she was somewhat sedated upon arrival and has improved since this was discontinued. Patient denies any recent illnesses, vomiting or diarrhea. She denies any pain at this time. She has had a decreased p.o. intake apparently per nursing staff records. Patient denies any urinary symptoms, cough or shortness of breath. She does complain of a sore palate after eating rice cakes the other day. Home Medications Home Medications Medication Instructions Recorded Confirmed Type acetaminophen [Tylenol] 325 mg PO Q4H PRN 05/23/18 04/27/20 History aspirin 81 mg PO QAM 05/23/18 04/27/20 History baclofen 10 mg PO TID 05/23/18 04/27/20 History bupropion HCl 450 mg PO QAM 05/23/18 04/27/20 History buspirone 10 mg PO DAILY@1600 05/23/18 04/27/20 History dicyclomine 10 mg PO Q6H PRN 05/23/18 04/27/20 History fentanyl 1 patch TRANSDERMAL Q72H 05/23/18 04/27/20 History meloxicam 15 mg PO QAM 05/23/18 04/27/20 History omeprazole 20 mg PO QAM 05/23/18 04/27/20 History oxybutynin chloride 10 mg PO HS 05/23/18 04/27/20 History sennosides-docusate sodium 1 tab PO HS 05/23/18 04/27/20 History [Senokot-S] simvastatin 20 mg PO HS 05/23/18 04/27/20 History D-Mannose 500mg Capsule 1,000 mg PO BID 09/25/19 04/27/20 History cholecalciferol (vitamin D3) 5,000 unit PO QAM 09/25/19 04/27/20 History [Vitamin D3] cyanocobalamin (vitamin B-12) 1,000 mcg IM [facility]NER 09/25/19 04/27/20 History vitamin B complex 1 tab PO QAM 09/25/19 04/27/20 History aripiprazole 5 mg PO QAM 04/27/20 04/27/20 History empagliflozin [Jardiance] 25 mg PO DAILY 04/27/20 04/27/20 History linagliptin [Tradjenta] 5 mg PO QAM 04/27/20 04/27/20 History mineral oil-isopropyl myristat 1 applic TOPICAL BID 04/27/20 04/27/20 History [Eucerin] naproxen 500 mg PO BID 04/27/20 04/27/20 History Allergies Allergy/AdvReac Type Severity Reaction Status Date / Time Penicillins Allergy Unknown . Verified 04/27/20 11:04 pregabalin Allergy Unknown . Verified 04/27/20 11:04 tramadol Allergy Unknown . Verified 04/27/20 11:04 Past Med/Surg History Medical History Anxiety and depression Bladder spasms Bone infection Chronic pain Dysuria GERD (gastroesophageal reflux disease) Gross hematuria H/O recurrent urinary tract infection H/O: CVA (cerebrovascular accident) History of MRSA infection Hx: UTI (urinary tract infection) Incontinence Left thigh pain Lesion of bladder Morbid obesity Osteomyelitis Surgical History History of cataract surgery S/P cholecystectomy Family History Mother Hypertension Social History Smoking Status: Former smoker Tobacco Type: Cigarettes Second Hand Exposure: No; Hx Alcohol Use: No Hx Substance Use: No Preferred Language: [place] Communication Ability: Impaired Visual Impairment: No Limitations Lens And Frames Prescription Clerk Required: No Beliefs That Will Affect Care: None Current Living Situation: Personal Care Facility Current Living Situation Comment: [facility] Feels Safe at Home: Yes Safety Concerns: Feels Safe At This Time Assistive Devices: Denture - Upper, Denture - Lower, Glasses and Oxygen - at Night Review of Systems See HPI for pertinent positives & negatives. and A total of 10 systems reviewed and were otherwise negative Physical Exam Vital Signs Vital Signs - 24 hr 04/27/20 10:02 04/27/20 10:07 04/27/20 10:10 Temperature 36.9 C Temperature Source Oral Pulse Rate 103 H 103 H 98 H Pulse Rate from SpO2 Sensor 103 H 104 H Respiratory Rate 16 13 18 Blood Pressure 163/97 H 163/80 H Blood Pressure Mean 121 107 Pulse Oximetry 92 95 95 Oxygen Delivery Method Room Air Oxygen Flow Rate Sepsis Recent Fever Within 48 Hours No Sepsis New/Unexplained Change in Mental Status N/A Sepsis Action Taken by Nursing No Action Required 04/27/20 10:15 04/27/20 10:30 04/27/20 10:45 Temperature Temperature Source Pulse Rate 93 H 101 H 101 H Pulse Rate from SpO2 Sensor 96 H 98 H Respiratory Rate 14 18 17 Blood Pressure Blood Pressure Mean Pulse Oximetry 92 96 Oxygen Delivery Method Oxygen Flow Rate Sepsis Recent Fever Within 48 Hours Sepsis New/Unexplained Change in Mental Status Sepsis Action Taken by Nursing 04/27/20 11:00 04/27/20 11:15 04/27/20 11:30 Temperature Temperature Source Pulse Rate 89 113 H 87 Pulse Rate from SpO2 Sensor 85 111 H 89 Respiratory Rate 12 24 14 Blood Pressure Blood Pressure Mean Pulse Oximetry 96 96 96 Oxygen Delivery Method Room Air Oxygen Flow Rate Sepsis Recent Fever Within 48 Hours Sepsis New/Unexplained Change in Mental Status Sepsis Action Taken by Nursing 04/27/20 11:32 04/27/20 11:45 04/27/20 12:00 Temperature Temperature Source Pulse Rate 83 96 H Pulse Rate from SpO2 Sensor 85 99 H Respiratory Rate 19 20 Blood Pressure Blood Pressure Mean Pulse Oximetry 94 96 93 Oxygen Delivery Method Room Air Oxygen Flow Rate Sepsis Recent Fever Within 48 Hours Sepsis New/Unexplained Change in Mental Status Sepsis Action Taken by Nursing 04/27/20 12:15 04/27/20 12:30 04/27/20 12:45 Temperature Temperature Source Pulse Rate 98 H 94 H 92 H Pulse Rate from SpO2 Sensor 99 H 91 H 84 Respiratory Rate 15 18 13 Blood Pressure 155/89 H Blood Pressure Mean 111 Pulse Oximetry 94 93 93 Oxygen Delivery Method Oxygen Flow Rate Sepsis Recent Fever Within 48 Hours Sepsis New/Unexplained Change in Mental Status Sepsis Action Taken by Nursing 04/27/20 12:55 04/27/20 13:00 04/27/20 13:03 Temperature Temperature Source Pulse Rate 99 H 84 Pulse Rate from SpO2 Sensor 98 H 84 Respiratory Rate 14 14 Blood Pressure 116/92 155/89 H Blood Pressure Mean 106 95 Pulse Oximetry 97 100 95 Oxygen Delivery Method Nasal Cannula Oxygen Flow Rate 2 Sepsis Recent Fever Within 48 Hours Sepsis New/Unexplained Change in Mental Status Sepsis Action Taken by Nursing 04/27/20 13:15 04/27/20 13:30 04/27/20 13:45 Temperature Temperature Source Pulse Rate 85 87 104 H Pulse Rate from SpO2 Sensor 85 87 Respiratory Rate 12 13 Blood Pressure Blood Pressure Mean Pulse Oximetry 96 96 Oxygen Delivery Method Oxygen Flow Rate Sepsis Recent Fever Within 48 Hours Sepsis New/Unexplained Change in Mental Status Sepsis Action Taken by Nursing 04/27/20 14:03 04/27/20 14:15 04/27/20 14:30 Temperature Temperature Source Pulse Rate 105 H 108 H 99 H Pulse Rate from SpO2 Sensor 103 H 107 H 98 H Respiratory Rate 23 15 18 Blood Pressure 122/76 Blood Pressure Mean 91 Pulse Oximetry 99 98 97 Oxygen Delivery Method Oxygen Flow Rate Sepsis Recent Fever Within 48 Hours Sepsis New/Unexplained Change in Mental Status Sepsis Action Taken by Nursing 04/27/20 14:45 04/27/20 15:00 04/27/20 15:15 Temperature Temperature Source Pulse Rate 108 H 102 H 99 H Pulse Rate from SpO2 Sensor 107 H 102 H 100 H Respiratory Rate 18 14 21 Blood Pressure 162/86 H Blood Pressure Mean 145 Pulse Oximetry 96 98 97 Oxygen Delivery Method Oxygen Flow Rate Sepsis Recent Fever Within 48 Hours Sepsis New/Unexplained Change in Mental Status Sepsis Action Taken by Nursing 04/27/20 15:30 04/27/20 15:45 04/27/20 16:00 Temperature Temperature Source Pulse Rate 98 H 101 H 97 H Pulse Rate from SpO2 Sensor 97 H 99 H 99 H Respiratory Rate 17 18 19 Blood Pressure Blood Pressure Mean Pulse Oximetry 96 97 77 L Oxygen Delivery Method Oxygen Flow Rate Sepsis Recent Fever Within 48 Hours Sepsis New/Unexplained Change in Mental Status Sepsis Action Taken by Nursing 04/27/20 16:01 04/27/20 16:02 04/27/20 16:15 Temperature Temperature Source Pulse Rate 97 H 98 H 97 H Pulse Rate from SpO2 Sensor 97 H 97 H 97 H Respiratory Rate 23 17 14 Blood Pressure 122/76 Blood Pressure Mean 84 Pulse Oximetry 98 98 98 Oxygen Delivery Method Oxygen Flow Rate Sepsis Recent Fever Within 48 Hours Sepsis New/Unexplained Change in Mental Status Sepsis Action Taken by Nursing 04/27/20 16:30 04/27/20 16:45 04/27/20 17:00 Temperature Temperature Source Pulse Rate 96 H 94 H 96 H Pulse Rate from SpO2 Sensor 97 H 92 H 96 H Respiratory Rate 18 14 17 Blood Pressure Blood Pressure Mean Pulse Oximetry 95 96 76 L Oxygen Delivery Method Oxygen Flow Rate Sepsis Recent Fever Within 48 Hours Sepsis New/Unexplained Change in Mental Status Sepsis Action Taken by Nursing 04/27/20 17:01 04/27/20 17:15 04/27/20 17:30 Temperature Temperature Source Pulse Rate 98 H 94 H 95 H Pulse Rate from SpO2 Sensor 96 H 93 H 93 H Respiratory Rate 17 18 17 Blood Pressure Blood Pressure Mean 91 Pulse Oximetry 97 96 96 Oxygen Delivery Method Oxygen Flow Rate Sepsis Recent Fever Within 48 Hours Sepsis New/Unexplained Change in Mental Status Sepsis Action Taken by Nursing Vital signs reviewed. General: Chronically ill-appearing, morbidly obese 65-year-old female, in no significant distress HEENT: No scleral icterus, PERRLA, neck supple. Dry mucous membranes with dentures in place. Cardiovascular: Regular rate and rhythm, no extra sounds. Pulmonary: Clear to auscultation bilaterally, normal work of breathing. Abdomen: Soft, obese, nontender, nondistended, positive bowel sounds. Musculoskeletal: Atraumatic, no peripheral edema. Neurologic: Patient is awake, alert and answers some questions appropriately. Questionable reliability. Patient is able to follow simple commands Skin: Warm, dry, no rash Course Administered Medications Aripiprazole (Aripiprazole 5 Mg Tab) 5 mg PO QAM [facility] Stop: 05/28/20 08:59 Last Admin: 04/28/20 09:14 Dose: 5 mg Documented by: [id number] Baclofen (Baclofen 10 Mg Tab) 10 mg PO TID [facility] Stop: 05/27/20 20:59 Last Admin: 04/28/20 12:52 Dose: 10 mg Documented by: [id number] Admin: 04/28/20 08:39 Dose: 10 mg Documented by: [id number] Admin: 04/27/20 21:27 Dose: 10 mg Documented by: [id number] Bupropion HCl (Bupropion Sr 150 Mg Tabcr) 450 mg PO QAM [facility] Stop: 05/28/20 08:59 Last Admin: 04/28/20 09:14 Dose: 450 mg Documented by: [id number] Buspirone HCl (Buspirone 5 Mg Tab) 10 mg PO DAILY@1600 [facility] Stop: 05/27/20 20:44 Last Admin: 04/28/20 17:12 Dose: 10 mg Documented by: [id number] Admin: 04/27/20 21:25 Dose: 10 mg Documented by: [id number] Pantoprazole Sodium 40 mg/ (Syringe) 10 mls @ 5 mls/min IV BID [facility] Stop: 05/27/20 20:59 Last Admin: 04/28/20 08:34 Dose: 5 mls/min Documented by: [id number] Admin: 04/27/20 21:23 Dose: 5 mls/min Documented by: [id number] Daptomycin 525 mg/ Syringe 10.5 mls @ 5.25 mls/min IV Q24H [facility]; Protocol Stop: 05/08/20 08:59 Last Admin: 04/28/20 08:38 Dose: 5.25 mls/min Documented by: [id number] Ertapenem 1,000 mg/ Sodium (Chloride) 60 mls @ 100 mls/hr IV Q24H [facility] Stop: 05/06/20 14:35 Last Infusion: 04/28/20 14:09 Dose: 0 mls/hr Documented by: [id number] Admin: 04/28/20 12:53 Dose: 100 mls/hr Documented by: [id number] Lactated Ringer's (Lr) 1,000 mls @ 125 mls/hr IV .Q8H [facility] Stop: 05/28/20 17:44 Last Admin: 04/28/20 17:49 Dose: 125 mls/hr Documented by: [id number] Insulin Aspart (Insulin Aspart 100 Units/Ml 3 Ml Pen) 0 units SC ACHS [facility] Stop: 05/27/20 20:59 Last Admin: 04/28/20 17:09 Dose: 5 units Documented by: [id number] Cosigned by: [id number] Admin: 04/28/20 12:53 Dose: 3 units Documented by: [id number] Cosigned by: [id number] Admin: 04/28/20 08:35 Dose: 6 units Documented by: [id number] Cosigned by: [id number] Admin: 04/27/20 21:24 Dose: 1 units Documented by: [id number] Cosigned by: [id number] Insulin Glargine (Insulin Glargine Solostar 100 Units/Ml 3 Ml Pen) 10 units SC BID [facility] Stop: 05/27/20 20:59 Last Admin: 04/28/20 08:39 Dose: 10 units Documented by: [id number] Cosigned by: [id number] Admin: 04/27/20 21:23 Dose: 10 units Documented by: [id number] Cosigned by: [id number] Lactobacillus Acidophilus (Lactobacillus Acidophilus (Floranex) Tab) 4 tab PO TIDM [facility] Stop: 05/28/20 07:59 Last Admin: 04/28/20 17:12 Dose: 4 tab Documented by: [id number] Admin: 04/28/20 12:52 Dose: 4 tab Documented by: [id number] Admin: 04/28/20 08:38 Dose: 4 tab Documented by: [id number] Senna/Docusate Sodium (Docusate Sodium/Senna 50/8.6mg Tab) 1 tab PO HS [facility] Stop: 05/27/20 20:59 Last Admin: 04/27/20 21:25 Dose: 1 tab Documented by: [id number] Vitamin B Complex (Vitamin B Complex Tab) 1 tab PO QAM [facility] Stop: 05/28/20 08:59 Last Admin: 04/28/20 08:34 Dose: 1 tab Documented by: [id number] Vitamin D (Cholecalciferol 1,000 Units 25 Mcg Tab) 5,000 units PO QAM [facility] Stop: 05/28/20 08:59 Last Admin: 04/28/20 08:34 Dose: 5,000 units Documented by: [id number] Discontinued Medications Sodium Chloride (Nss 1000ml) 1,000 mls @ 175 mls/hr IV .Q5H43M [facility] Stop: 04/27/20 17:12 Last Infusion: 04/27/20 21:59 Dose: 0 mls/hr Documented by: [id number] Admin: 04/27/20 13:42 Dose: 125 mls/hr Documented by: [id number] Ertapenem (Invanz) 10 mls @ 2 mls/min IV NOW STA Stop: 04/27/20 13:05 Last Admin: 04/27/20 13:41 Dose: 2 mls/min Documented by: [id number] Daptomycin 350 mg/ Syringe 7 mls @ 3.5 mls/min IV NOW ONE; Protocol Stop: 04/27/20 13:03 Last Admin: 04/27/20 13:42 Dose: 3.5 mls/min Documented by: [id number] Lactated Ringer's (Lr) 1,000 mls @ 175 mls/hr IV .Q5H43M [facility] Stop: 04/28/20 10:10 Last Infusion: 04/28/20 11:21 Dose: 0 mls/hr Documented by: [id number] Admin: 04/28/20 04:27 Dose: 175 mls/hr Documented by: [id number] Infusion: 04/28/20 04:27 Dose: 175 mls/hr Documented by: [id number] Admin: 04/27/20 22:47 Dose: 175 mls/hr Documented by: [id number] Medical Decision Making Differential Diagnosis Differential diagnosis: Infection, dehydration, metabolic abnormality, hypo/hyperglycemia, electrolyte disturbance, anemia, hypoxia, cardiac sources, intracerebral event, toxicologic, neurologic, as well as other pathologies. Medical Records Attestation: I reviewed the patient's medical records. Home Medications Current Medication List: was personally reviewed by me Laboratory Data Attestation: I reviewed the patient's lab results. Result diagrams: 04/28/20 08:35 04/28/20 08:35 Lab Results 04/27/20 04/27/20 04/27/20 Range/Units 11:49 11:49 11:49 WBC 26.36 H (4.8-10.8) K/uL RBC 3.44 L (4.2-5.4) M/uL Hgb 8.7 L (12.0-16.0) g/dL Hct 27.6 L (37-47) % MCV 80.2 (80-100) fL MCH 25.3 (25-34) pg MCHC 31.5 L (32-36) g/dL RDW Std Deviation 54.5 H (36.4-46.3) fL RDW Coeff of Katina 18.6 H (11.5-14.5) % Plt Count 431 H (130-400) K/uL MPV 9.1 (7.4-10.4) fL Immature Gran % (Auto) 0.7 % Neut % (Auto) 86.6 % Lymph % (Auto) 6.0 % [place] % (Auto) 6.0 % Eos % (Auto) 0.6 % Baso % (Auto) 0.1 % Neut # (Auto) 22.83 H (1.4-6.5) K/uL Lymph # (Auto) 1.57 (1.2-3.4) K/uL [place] # (Auto) 1.58 H (0.11-0.59) K/uL Eos # (Auto) 0.17 (0-0.5) K/uL Baso # (Auto) 0.03 (0-0.2) K/uL Immature Gran # (Auto) 0.18 H (0.00-0.02) K/uL Rouleaux 1+ Sodium 136 (136-145) mmol/L Potassium 4.7 (3.5-5.1) mmol/L Chloride 106 (98-107) mmol/L Carbon Dioxide 24 (21-32) mmol/L Anion Gap 6.0 (3-11) BUN 27 H (7-18) mg/dl Creatinine 2.23 H (0.6-1.2) mg/dl Est Cr Clr Drug Dosing 35.7 ml/min Est GFR ( Amer) 26.3 Est GFR (Non-Af Amer) 22.7 BUN/Creatinine Ratio 12.3 (10-20) Glucose 175 H (70-99) mg/dl Lactate 1.0 (0.4-2.0) mmol/L Calcium 9.1 (8.5-10.1) mg/dl Magnesium 2.6 H (1.8-2.4) mg/dl Total Bilirubin 1.2 H (0.2-1) mg/dl AST 28 (15-37) U/L ALT 25 (12-78) U/L Alkaline Phosphatase 186 H (45-117) U/L Total Protein 7.8 (6.4-8.2) gm/dl Albumin 1.6 L (3.4-5.0) gm/dl Globulin 6.2 H (2.5-4.0) gm/dl Albumin/Globulin Ratio 0.3 L (0.9-2) TSH 0.680 (0.300-4.500) uIu/ml Urine Color Urine Appearance (Clear) Urine pH (4.5-7.5) Ur Specific [place] (1.000-1.030) Urine Protein (Negative) Urine Glucose (UA) (Negative) Urine Ketones (Negative) Urine Blood (Negative) Urine Nitrite (Negative) Urine Bilirubin (Negative) Urine Urobilinogen (Negative) Ur Leukocyte Esterase (Negative) Urine WBC (Auto) (0-5) /hpf Urine RBC (Auto) (0-4) /hpf U Hyaline Cast (Auto) (0-5) /lpf U Epithel Cells (Auto) (0-5) /lpf Urine Bacteria (Auto) (Negative) COVID-19 Eval Order COVID-19 PCR (Negative) Hepatitis C Ab Screen (Neg) 04/27/20 04/27/20 04/27/20 Range/Units 11:49 13:00 13:00 WBC (4.8-10.8) K/uL RBC (4.2-5.4) M/uL Hgb (12.0-16.0) g/dL Hct (37-47) % MCV (80-100) fL MCH (25-34) pg MCHC (32-36) g/dL RDW Std Deviation (36.4-46.3) fL RDW Coeff of Katina (11.5-14.5) % Plt Count (130-400) K/uL MPV (7.4-10.4) fL Immature Gran % (Auto) % Neut % (Auto) % Lymph % (Auto) % [place] % (Auto) % Eos % (Auto) % Baso % (Auto) % Neut # (Auto) (1.4-6.5) K/uL Lymph # (Auto) (1.2-3.4) K/uL [place] # (Auto) (0.11-0.59) K/uL Eos # (Auto) (0-0.5) K/uL Baso # (Auto) (0-0.2) K/uL Immature Gran # (Auto) (0.00-0.02) K/uL [place] Sodium (136-145) mmol/L Potassium (3.5-5.1) mmol/L Chloride (98-107) mmol/L Carbon Dioxide (21-32) mmol/L Anion Gap (3-11) BUN (7-18) mg/dl Creatinine (0.6-1.2) mg/dl Est Cr Clr Drug Dosing ml/min Est GFR ( Amer) Est GFR (Non-Af Amer) BUN/Creatinine Ratio (10-20) Glucose (70-99) mg/dl Lactate (0.4-2.0) mmol/L Calcium (8.5-10.1) mg/dl Magnesium (1.8-2.4) mg/dl Total Bilirubin (0.2-1) mg/dl AST (15-37) U/L ALT (12-78) U/L Alkaline Phosphatase (45-117) U/L Total Protein (6.4-8.2) gm/dl Albumin (3.4-5.0) gm/dl Globulin (2.5-4.0) gm/dl Albumin/Globulin Ratio (0.9-2) TSH (0.300-4.500) uIu/ml Urine Color Urine Appearance (Clear) Urine pH (4.5-7.5) Ur Specific [place] (1.000-1.030) Urine Protein (Negative) Urine Glucose (UA) (Negative) Urine Ketones (Negative) Urine Blood (Negative) Urine Nitrite (Negative) Urine Bilirubin (Negative) Urine Urobilinogen (Negative) Ur Leukocyte Esterase (Negative) Urine WBC (Auto) (0-5) /hpf Urine RBC (Auto) (0-4) /hpf U Hyaline Cast (Auto) (0-5) /lpf U Epithel Cells (Auto) (0-5) /lpf Urine Bacteria (Auto) (Negative) COVID-19 Eval Order Covid19 Done at [facility] COVID-19 PCR NEGATIVE (Negative) Hepatitis C Ab Screen Neg (Neg) 04/27/20 Range/Units 15:31 WBC (4.8-10.8) K/uL RBC (4.2-5.4) M/uL Hgb (12.0-16.0) g/dL Hct (37-47) % MCV (80-100) fL MCH (25-34) pg MCHC (32-36) g/dL RDW Std Deviation (36.4-46.3) fL RDW Coeff of Katina (11.5-14.5) % Plt Count (130-400) K/uL MPV (7.4-10.4) fL Immature Gran % (Auto) % Neut % (Auto) % Lymph % (Auto) % [place] % (Auto) % Eos % (Auto) % Baso % (Auto) % Neut # (Auto) (1.4-6.5) K/uL Lymph # (Auto) (1.2-3.4) K/uL [place] # (Auto) (0.11-0.59) K/uL Eos # (Auto) (0-0.5) K/uL Baso # (Auto) (0-0.2) K/uL Immature Gran # (Auto) (0.00-0.02) K/uL [place] Sodium (136-145) mmol/L Potassium (3.5-5.1) mmol/L Chloride (98-107) mmol/L Carbon Dioxide (21-32) mmol/L Anion Gap (3-11) BUN (7-18) mg/dl Creatinine (0.6-1.2) mg/dl Est Cr Clr Drug Dosing ml/min Est GFR ( Amer) Est GFR (Non-Af Amer) BUN/Creatinine Ratio (10-20) Glucose (70-99) mg/dl Lactate (0.4-2.0) mmol/L Calcium (8.5-10.1) mg/dl Magnesium (1.8-2.4) mg/dl Total Bilirubin (0.2-1) mg/dl AST (15-37) U/L ALT (12-78) U/L Alkaline Phosphatase (45-117) U/L Total Protein (6.4-8.2) gm/dl Albumin (3.4-5.0) gm/dl Globulin (2.5-4.0) gm/dl Albumin/Globulin Ratio (0.9-2) TSH (0.300-4.500) uIu/ml Urine Color Yellow Urine Appearance Turbid A (Clear) Urine pH 5.0 (4.5-7.5) Ur Specific [place] 1.017 (1.000-1.030) Urine Protein 2+ H (Negative) Urine Glucose (UA) 3+ H (Negative) Urine Ketones Negative (Negative) Urine Blood 3+ H (Negative) Urine Nitrite Positive A (Negative) Urine Bilirubin Negative (Negative) Urine Urobilinogen Negative (Negative) Ur Leukocyte Esterase 3+ H (Negative) Urine WBC (Auto) >30 H (0-5) /hpf Urine RBC (Auto) >30 H (0-4) /hpf U Hyaline Cast (Auto) 0 (0-5) /lpf U Epithel Cells (Auto) >30 H (0-5) /lpf Urine Bacteria (Auto) 4+ H (Negative) COVID-19 Eval Order COVID-19 PCR (Negative) Hepatitis C Ab Screen (Neg) Imaging Data Radiologist's Impression: XR chest 1V portable CLINICAL HISTORY: weakness COMPARISON STUDY: 09/25/2019 FINDINGS: The cardiac and mediastinal contours are normal. There is no evidence of focal pulmonary consolidation. There is no evidence of failure. No pleural effusions are visualized.[ Left proximal humerus is visualized IMPRESSION: No active disease in the chest. ACT 112: Negative or not required by law. Electronically signed by: Denton Cerda M.D. 04/27/2020 12:17 PM Dictated: 04/27/201216 Transcribed: 04/27/201216 CT SCAN OF THE ABDOMEN AND PELVIS WITHOUT CONTRAST CLINICAL HISTORY: Acute renal failure. Elevated white count. Possible obstruction. COMPARISON STUDY: 05/23/2018 TECHNIQUE: CT scan of the abdomen and pelvis was performed from the lung bases to the proximal femurs. Images are reviewed in the axial, sagittal, and coronal planes. IV contrast was not administered for this examination. A dose lowering technique was utilized adhering to the principles of ALARA. CT DOSE: 1077.42 mGycm FINDINGS: Lower chest: There is mild basilar atelectasis. There are coronary artery calcifications Liver: There are stable dystrophic calcifications within the right hepatic lobe. Gallbladder: Surgically absent Spleen: Normal in size and attenuation. Pancreas: Unremarkable. Adrenal glands: Unremarkable. Kidneys: There is mild bilateral hydronephrosis. No ureteral or bladder calculi are visualized. There is equivocal increased density of the right renal pelvis. Hemorrhage cannot be excluded Bowel: There are no transition zones indicate bowel obstruction. By history the appendix is surgically absent. There is no evidence of acute diverticulitis. Peritoneum: There is no intraperitoneal free air or abdominal ascites. Is a small fat-containing umbilical hernia Vasculature: The abdominal aorta is normal in course and caliber. Adenopathy: None. Pelvic viscera: The uterus appears surgically absent Skeletal structures: There are chronic bilateral proximal femoral deformities with advanced arthritic change. There is no evidence for a lytic bone disease. IMPRESSION: 1. Technically limited study secondary to streak artifact given the patient's large body habitus 2. No evidence of bowel obstruction. No evidence of free air 3. Surgically absent appendix. No evidence of acute diverticulitis 4. Mild bilateral hydronephrosis. No ureteral or bladder calculi identified 5. Equivocal slight increased density at the right renal pelvis. Hemorrhage cannot be excluded ACT 112: Negative or not required by law. Electronically signed by: Denton Cerda M.D. 04/27/2020 2:27 PM Dictated: 04/27/201421 Transcribed: 04/27/201421 ECG Data Attestation: I personally reviewed and interpreted this ECG as follows: Indication: + altered mental status and + weakness Rate (beats per minute): 94 Rhythm: + normal sinus ECG Intervals/blocks: + Normal QT-c ECG [place]: + Normal ECG ST segments: + Normal ST segments ECG Findings: no PACs and no PVCs Blood Pressure Blood Pressure Findings: Normal blood pressure Blood Pressure Disposition: did not require urgent referral MDM Narrative This patient was evaluated and appeared to be in no significant distress. IV access was obtained and laboratory work was drawn. An order for cardiac monitoring was placed and the patient is noted to be in a sinus tachycardia at 104 bpm. Patient was hydrated with normal saline solution. Chest x-ray was performed reveals no focal lung consolidation or failure. Patient's laboratory work reveals an acute renal insufficiency. Noncontrast CT scan of the abdomen pelvis was performed and is concerning for a small focal area of bleeding in the right renal pelvis. Urinalysis is indicative of infection. Patient was covered with ertapenem and daptomycin due to her retirement status and penicillin allergy. She does have a notable WBC of 26.36. Lactate is normal. Blood cultures are pending. COVID swab was obtained and is negative. Patient's case was discussed with the hospitalist service who will evaluate the patient for further management. Impression & Plan Morbid obesity, UTI (urinary tract infection), Leukocytosis Discharge Plan Visit Data Chief Complaint: Illness ED Provider: Sarahi Davis Discharge Problem: Morbid obesity, UTI (urinary tract infection), Leukocytosis Patient Disposition: Admitted As Inpatient Discharge Instructions Interventions: ED Discharge Assessment Last Done: 04/27/20 19:31
[2020-04-27] MEDS ORDERED: GLUCOSE 10 TABS/TUBE PO PRN (20:11)
[2020-04-27] MEDS ORDERED: ONDANSETRON INJ 2 MG/ML 2 ML VIAL IV PRN (20:11)
[2020-04-27] MEDS ORDERED: GLUCAGON FOR INJ 1 MG VIAL SQ PRN (20:11)
[2020-04-27] MEDS ORDERED: CARBOHYDRATES FOR HYPOGLYCEMIA PO PRN (20:11)
[2020-04-27] MEDS ORDERED: DEXTROSE 50% 50 ML SYRINGE IV PRN (20:11)
[2020-04-27] MEDS ORDERED: GLUCOSE 40% GEL 15 GM TUBE PO PRN (20:11)
--- NOTE | 2020-04-27 20:32 | XRay Report ---
RIGHT SHOULDER 3 VIEWS CLINICAL HISTORY: Right shoulder pain. FINDINGS: 3 views of the right shoulder are obtained. No prior studies are available for comparison a t the time of dictation. The skeletal structures are osteopenic. There is no radiographic evidence of fracture or dislocation. Productive degenerative change is seen at the acromioclavicular joint. Ther e is superior subluxation of the humeral head with loss of the subacromial space. This suggests chron ic rotator cuff injury. The overlying soft tissues are normal as imaged. The right lung parenchyma is clear as visualized. IMPRESSION: 1. No acute bony abnormality is identified. 2. Degenerative change with evidence of chronic rotator cuff injury as above. Electronically signed by: Tl Jolley M.D. 04/27/2020 8:30 PM
[2020-04-27] MEDS: INSULIN GLARGINE SOLOSTAR 100 UNITS/ML 3 ML PEN SC SCH (21:23)
[2020-04-27] MEDS: PANTOprazole 40 MG in SYRINGE 0 ML IV SCH (21:23)
[2020-04-27] MEDS: INSULIN ASPART 100 UNITS/ML 3 ML PEN SC SCH (21:24)
[2020-04-27] MEDS: busPIRone 5 MG TAB PO SCH (21:25)
[2020-04-27] MEDS: DOCUSATE SODIUM/SENNA 50/8.6MG TAB PO SCH (21:25)
[2020-04-27] MEDS: BACLOFEN 10 MG TAB PO SCH (21:27)
[2020-04-27 21:48] LABS: Hematocrit (blood only) 32.2 % (37-47); Hemoglobin 10.2 g/dL (12.0-16.0)
[2020-04-27 22:10] LABS: BUN Creatinine Ratio 12.2 (10-20); Calcium 8.8 mg/dl (8.5-10.1); Creatinine Clr Calc Pharmacy 35.2 ml/min; Est GFR (African American) 25.9; Est GFR (Non-African American) 22.4; Potassium 4.8 mmol/L (3.5-5.1)
[2020-04-27 22:15] LABS: Ferritin 238.6 ng/ml (8-388)
[2020-04-27 22:22] LABS: Folate (Folic Acid) > 24.00 ng/ml (>5.38); Vitamin B12 > 2000 pg/ml (211-911)
[2020-04-27] MEDS: LACTATED RINGER'S 1,000 ML IV SCH (22:47)
[2020-04-27] MEDS ORDERED: MICONAZOLE NITRATE POWDER 43 GM EXT PRN (23:16)
[2020-04-28] MEDS: LACTATED RINGER'S 1,000 ML IV SCH ×2 (04:27→17:49)
[2020-04-28] MEDS: VITAMIN B COMPLEX TAB PO SCH (08:34)
[2020-04-28] MEDS: PANTOprazole 40 MG in SYRINGE 0 ML IV SCH ×2 (08:34→20:47)
[2020-04-28] MEDS: CHOLECALCIFEROL 1,000 UNITS 25 MCG TAB PO SCH (08:34)
[2020-04-28] MEDS: INSULIN ASPART 100 UNITS/ML 3 ML PEN SC SCH ×4 (08:35→20:47)
[2020-04-28] MEDS: DAPTOmycin 525 MG in SYRINGE 0 ML IV SCH (08:38)
[2020-04-28] MEDS: LACTOBACILLUS ACIDOPHILUS (FLORANEX) TAB PO SCH ×3 (08:38→17:12)
[2020-04-28] MEDS: INSULIN GLARGINE SOLOSTAR 100 UNITS/ML 3 ML PEN SC SCH ×2 (08:39→20:46)
[2020-04-28] MEDS: BACLOFEN 10 MG TAB PO SCH ×3 (08:39→20:47)
--- NOTE | 2020-04-28 08:41 | Urology Consultation ---
Date of Consultation April 28, 2020 Assessment & Plan (1) Microscopic hematuria: (2) Abnormal CT of the abdomen: 65 yo F admitted with acute kidney injury, leukocytosis, and suspected UTI. - Subjectively improved today - Creatinine improved slightly today to 2.17, WBC trending down - Reviewed case with Dr. Wallace - Microscopic hematuria likely in setting of infection - CT raises concern for blood in right renal pelvis, small volume, clinically asymptomatic - Recommend continue antibiotics, follow cultures and treat as indicated, supportive care - Maintain Fallon catheter - No intervention planned at present, continue to monitor closely - Reconsider intervention if she fails to improve with antibiotics and supportive care - Made hospital team aware of her reported hand complaint - Will continue to monitor (3) UTI (urinary tract infection): History of Present Illness Reason for Consultation: Hematuria, CT concerning for renal hemorrhage Requesting Physician: Dr. Suleiman Avery Attending Physician: Dale Hillman, DO History of Present Illness 65 yo F admitted for acute kidney injury, leukocytosis, and suspected UTI. Patient known to our service, follows with Dr. Toney for voiding dysfunction and UTIs. She presented from group home to [facility] ED on 04/27/20 with ill feelings. Lab work on admission: creatinine 2.23, WBC 26.36, Lactate 1.0, Hgb 8.7. UA suggestive of infection, urine culture collected. She was admitted for further evaluation and management. Our service is consulted for microscopic hematuria and CT concerning for renal hemorrhage. CT A/P without contrast showed mild bilateral hydronephrosis. No ureteral or bladder calculi identified. Equivocal slight increased density at the right renal pelvis. Hemorrhage cannot be excluded. Chart review: Fallon in place Creatinine - 2.17 WBC - 20.66 Hgb - 9.4 UC&S - prelim gram negative bacilli BCx - pending On IV Daptomycin and Ertapenem Pt examined at bedside. Sleeping upon arrival, arouses easily to speech. Appears comfortable. Reports feeling some improvement since admission. No abdominal, flank or suprapubic pain. No nausea or vomiting. No fever or chills. Tolerating Fallon catheter. Fallon intact, patent, draining clear yellow urine with light thania in collection bag. No dysuria. Denies gross hematuria. At baseline, voids in bedpan at group home. Denies symptoms of dysuria or hematuria prior to arrival. She reports some vague coldness/twitching/numbness of bilateral hands. No additional concerns today. Allergies Allergy/AdvReac Type Severity Reaction Status Date / Time Penicillins Allergy Unknown . Verified 04/27/20 11:04 pregabalin Allergy Unknown . Verified 04/27/20 11:04 tramadol Allergy Unknown . Verified 04/27/20 11:04 Home Medications Home Medications Medication Instructions Recorded Confirmed Type acetaminophen [Tylenol] 325 mg PO Q4H PRN 05/23/18 04/27/20 History aspirin 81 mg PO QAM 05/23/18 04/27/20 History baclofen 10 mg PO TID 05/23/18 04/27/20 History bupropion HCl 450 mg PO QAM 05/23/18 04/27/20 History buspirone 10 mg PO DAILY@1600 05/23/18 04/27/20 History dicyclomine 10 mg PO Q6H PRN 05/23/18 04/27/20 History fentanyl 1 patch TRANSDERMAL Q72H 05/23/18 04/27/20 History meloxicam 15 mg PO QAM 05/23/18 04/27/20 History omeprazole 20 mg PO QAM 05/23/18 04/27/20 History oxybutynin chloride 10 mg PO HS 05/23/18 04/27/20 History sennosides-docusate sodium 1 tab PO HS 05/23/18 04/27/20 History [Senokot-S] simvastatin 20 mg PO HS 05/23/18 04/27/20 History D-Mannose 500mg Capsule 1,000 mg PO BID 09/25/19 04/27/20 History cholecalciferol (vitamin D3) 5,000 unit PO QAM 09/25/19 04/27/20 History [Vitamin D3] cyanocobalamin (vitamin B-12) 1,000 mcg IM [facility]NER 09/25/19 04/27/20 History vitamin B complex 1 tab PO QAM 09/25/19 04/27/20 History aripiprazole 5 mg PO QAM 04/27/20 04/27/20 History empagliflozin [Jardiance] 25 mg PO DAILY 04/27/20 04/27/20 History linagliptin [Tradjenta] 5 mg PO QAM 04/27/20 04/27/20 History mineral oil-isopropyl myristat 1 applic TOPICAL BID 04/27/20 04/27/20 History [Eucerin] naproxen 500 mg PO BID 04/27/20 04/27/20 History Patient History Medical History Anxiety and depression Bladder spasms Bone infection Chronic pain Dysuria GERD (gastroesophageal reflux disease) Gross hematuria H/O recurrent urinary tract infection H/O: CVA (cerebrovascular accident) History of MRSA infection Hx: UTI (urinary tract infection) Incontinence Left thigh pain Lesion of bladder Morbid obesity Osteomyelitis Surgical History History of cataract surgery S/P cholecystectomy Family History Mother Hypertension Social History Smoking Status: Former smoker Tobacco Type: Cigarettes Second Hand Exposure: No; Hx Alcohol Use: No Hx Substance Use: No Preferred Language: [place] Communication Ability: Impaired Visual Impairment: No Limitations Aircraft Sales Representative Required: No Beliefs That Will Affect Care: None Current Living Situation: Personal Care Facility Current Living Situation Comment: [facility] Feels Safe at Home: Yes Safety Concerns: Feels Safe At This Time Assistive Devices: None Review of Systems Constitutional: as per Subjective / HPI Gastrointestinal: as per Subjective / HPI Genitourinary: as per Subjective / HPI Physical Exam Constitutional: well developed, well nourished and + morbidly obese; no acute distress and not ill appearing Respiratory: normal respiratory effort and able to speak in complete sentences; no respiratory distress and no labored breathing Cardiovascular: Extremities: no pedal edema Gastrointestinal (Abdomen): Inspection/Auscultation: abdomen normal to inspection; abdomen not distended Percussion/Palpation: abdomen soft; abdomen nontender and no guarding Musculoskeletal: Head/Neck/Chest: normocephalic and head atraumatic Skin: no rashes, warm and dry Neurologic: moves all extremities and awake Psychiatric: Orientation: alert and oriented x 3 Genitourinary: no CVA tenderness Fallon catheter intact, patent, draining clear yellow urine with light thania urine in collection bag. Results & Data ([facility]) Vital Signs (Past 12 Hours) Vital Signs Temp Pulse Pulse Resp BP BP Pulse Ox 04/28/20 07:45 36.6 C 87 18 127/84 98 04/28/20 06:35 88 14 130/79 98 04/28/20 02:54 37 C 82 21 108/69 93 04/28/20 00:14 93 H 04/27/20 23:06 37.2 C 99 H 18 110/67 95 04/27/20 22:29 108 H 04/27/20 22:19 37.2 C 18 142/78 H 95 PG Care Time/CCT Total # of Minutes Spent Total Time Spent with Patient: Total time spent is greater than 50% in coordination of care (as documented) at patient's floor/unit and/or counseling patient: Coding Level of Care Code 18577 Inpt Consult Level 4 Diagnoses Microscopic hematuria R31.[address] of the abdomen R93.5 UTI (urinary tract infection) N39.0
[2020-04-28 08:49] LABS: Basophils # (auto) 0.03 K/uL (0-0.2); Basophils % (auto) 0.1 %; Eosinophils # (auto) 0.18 K/uL (0-0.5); Eosinophils % (auto) 0.9 %; Hemoglobin 9.4 g/dL (12.0-16.0); Immature Granulocytes # (auto) 0.12 K/uL (0.00-0.02); Immature Granulocytes % (auto) 0.6 %; Lymphocytes # (auto) 1.75 K/uL (1.2-3.4); Lymphocytes % (auto) 8.5 %; Mean Corpuscular Hemoglobin 25.1 pg (25-34); Mean Corpuscular Hgb Conc 31.3 g/dL (32-36); Mean Platelet Volume 9.1 fL (7.4-10.4); Monocytes # (auto) 1.49 K/uL (0.11-0.59); Monocytes % (auto) 7.2 %; Neutrophils # (auto) 17.09 K/uL (1.4-6.5); Neutrophils % (auto) 82.7 %; Platelet Count 418 K/uL (130-400); RDW Coefficient of Variation 18.6 % (11.5-14.5); RDW Standard Deviation 55.2 fL (36.4-46.3); Red Blood Count 3.75 M/uL (4.2-5.4); White Blood Count 20.66 K/uL (4.8-10.8)
[2020-04-28] MEDS ORDERED: ASPIRIN 81 MG ECTAB PO SCH (09:00)
[2020-04-28] MEDS ORDERED: NON-FORMULARY MEDICATION (Omeprazole 20 MG) PO SCH (09:00)
[2020-04-28] MEDS: buPROPion SR 150 MG TABCR PO SCH (09:14)
[2020-04-28] MEDS: ARIPiprazole 5 MG TAB PO SCH (09:14)
[2020-04-28 09:16] LABS: Albumin Level 1.5 gm/dl (3.4-5.0); BUN Creatinine Ratio 11.9 (10-20); Calcium 8.7 mg/dl (8.5-10.1); Creatinine Clr Calc Pharmacy 37.7 ml/min; Est GFR (African American) 27.2; Est GFR (Non-African American) 23.5; Potassium 4.6 mmol/L (3.5-5.1)
[2020-04-28 09:18] LABS: Albumin Globulin Ratio 0.3 (0.9-2); Globulin 5.7 gm/dl (2.5-4.0); Total Protein 7.2 gm/dl (6.4-8.2)
[2020-04-28 11:00] LABS: Estimated Average Glucose 192 mg/dl; Hemoglobin A1C 8.3 % (4.5-5.6)
[2020-04-28] MEDS: ERTAPENEM SODIUM 1,000 MG in SODIUM CHLORIDE 0.9% 50 ML IV SCH (12:53)
--- NOTE | 2020-04-28 12:56 | Hospitalist Progress Note ---
Date of Service April 28, 2020 Assessment & Plan (1) UTI (urinary tract infection): Continue ertapenem and daptomycin. Follow up blood and urine cultures - urine currently growing gram negative bacilli Per urology - continue with antibiotics (2) Acute kidney injury: Suspect pre-renal in setting of NSAID use (confirmed taking both meloxicam and naproxen). Hold NSAIDs and aspirin. Possible renal hemorrhage (see below for microscopic hematuria). No postobstructive cause on CT. Continue NSS @ 175 ml/hr. Creatinine decreased slightly today to 2.17 (3) Anemia: Normocytic Hgb stable at 9.4 Pantoprazole 40mg IV BID. Hold NSAIDs as above. Fecal occult blood. Possibly secondary to hematuria (see below). Could consider GI consult but will hold off. Patient's baseline hgb appears to be around 10 so she is not far from her baseline at present. Iron is low at 16, transferrin 139, ferritin 238 - will start iron supplementation (4) Microscopic hematuria: UA with RBC positive since August although possibly in the setting of UTIs this is more concerning given CT equivocal for right renal pelvis hemorrhage, current anemia and acute kidney injury. Consulted urology - supportive care (5) Abnormal CT of the abdomen: As above for microscopic hematuria. (6) Right shoulder pain: Consider MRI with and without IV contrast once renal function improved to assess for infection given similar symptoms to prior osteomyelitis. XR right shoulder without obvious acute change (7) GERD (gastroesophageal reflux disease): Continue ppi (8) T2DM (type 2 diabetes mellitus): HbA1C with AM labs. Hold linagliptin and empagliflozin. Continue Lantus 10 units twice daily, NovoLog sliding scale ACHS, bsgs stable (9) History of MRSA infection: Contact precautions. (10) H/O recurrent urinary tract infection: Recommend not restarting Jardiance on discharge as this will significantly increase her risk of urine tract infections. (11) Slurred speech: Ongoing since yesterday per daughter. Patient with history of CVA. Will send for MRI (12) DVT prophylaxis: SCDs. No chemical prophylaxis due to potential GI bleed versus renal hemorrhage as above. Admission and Anticipated Discharge Date Admission Date: April 27, 2020 Subjective Mr. Hardy has denies pain. Has a mild cough, no sob. Her speech is slurred which her daughter reports started yesterday. ROS Constitutional: no chills, aches, sweats or fever Respiratory: no sob,cough, sputum, or wheezing Cardiac: no chest pain, palpitations, edema, orthopnea or lightheadedness GI: no abdominal pain, nausea, vomiting, diarrhea or constipation : no dysuria or hesitancy Extremities: no joint pain or weakness Skin: no rash All other systems reviewed and negative Physical Exam Physical Exam: General: no distress Eyes: normal inspection, PERLL Respiratory: chest non tender, clear to auscultation, normal breath sounds, no respiratory distress, no accessory muscle use Cardiac: regular rate and rhythm, no rub or gallop, no murmur, no edema, no jvd GI/: active bowel sounds, no abd pain or tenderness, soft, non distended Extremities: normal range of motion, normal strength, non tender Neuro/Psych: alert and oriented x 3, normal mood and affect, slurred speech, mild left facial droop, equal hand grasp, no drift on the right but unable to lift left arm due to previous shoulder issues Skin: normal color, dry Results & Data Results & Data ([facility]) Vital Signs (Past 12 Hours) Vital Signs Temp Pulse Resp BP Pulse Ox 04/28/20 12:42 36.5 C 104 H 18 100/58 L 95 04/28/20 07:45 36.6 C 87 18 127/84 98 04/28/20 06:35 88 14 130/79 98 04/28/20 02:54 37 C 82 21 108/69 93 PG Care Time/CCT Total # of Minutes Spent Total Time Spent with Patient: Total time spent is greater than 50% in c oordination of care (as documented) at patient's floor/unit and/or counseling patient: Coding Level of Care Code 37395 Subseq Hosp Care Lvl 3 Diagnoses UTI (urinary tract infection) N39.0 Acute kidney injury N17.9 Anemia D64.9 Microscopic hematuria R31.[address] of the abdomen R93.5 Right shoulder pain M25.511 GERD (gastroesophageal reflux disease) K21.9 T2DM (type 2 diabetes mellitus) E11.9 History of MRSA infection Z86.14 H/O recurrent urinary tract infection Z87.440 Slurred speech R47.81 DVT prophylaxis Z29.9
[2020-04-28] MEDS: busPIRone 5 MG TAB PO SCH (17:12)
[2020-04-28] MEDS: DOCUSATE SODIUM/SENNA 50/8.6MG TAB PO SCH (20:47)
[2020-04-29] MEDS: LACTATED RINGER'S 1,000 ML IV SCH ×3 (00:50→20:54)
[2020-04-29 06:11] LABS: Hematocrit (blood only) 30.1 % (37-47); Hemoglobin 9.7 g/dL (12.0-16.0); Mean Corpuscular Hemoglobin 25.5 pg (25-34); Mean Corpuscular Hgb Conc 32.2 g/dL (32-36); Mean Corpuscular Volume 79.2 fL (80-100); Platelet Count 396 K/uL (130-400); RDW Coefficient of Variation 18.4 % (11.5-14.5); RDW Standard Deviation 53.5 fL (36.4-46.3); White Blood Count 14.64 K/uL (4.8-10.8)
[2020-04-29 07:02] LABS: BUN Creatinine Ratio 11.8 (10-20); Calcium 8.4 mg/dl (8.5-10.1); Creatinine Clr Calc Pharmacy 36.9 ml/min; Est GFR (African American) 26.2; Est GFR (Non-African American) 22.6; Potassium 4.4 mmol/L (3.5-5.1)
--- NOTE | 2020-04-29 07:41 | Magnetic Resonance Report ---
MRI OF THE BRAIN WITHOUT IV CONTRAST CLINICAL HISTORY: Slurred speech. Left arm weakness. COMPARISON STUDY: CT of the brain dated 05/23/2018. TECHNIQUE: MRI of the brain was performed utilizing various T1 and T2-weighted sequences in the axial , sagittal, and coronal planes. IV contrast was not administered for this examination. The Examinatio n is modestly degraded by motion artifact. FINDINGS: Brain parenchyma: There is age-related involutional change noting mild subcortical and periventricula r microangiopathic disease. There is no hemorrhage or mass effect. There is no restricted diffusion t o suggest acute ischemia. Tiny chronic lacunar infarcts are noted in the left caudate head and the ri ght cerebellar hemisphere. Perez-white matter differentiation is preserved. No extra-axial fluid colle ction is seen. The cerebellar tonsils are normal in configuration. Ventricles, sulci, and cisterns: Prominent secondary to involutional change. Pituitary and sella: Unremarkable. Intracranial vasculature: Normal flow voids are maintained at the skull base. Orbits: The bony orbits are grossly intact. Orbital contents are normal in appearance noting bilatera l ocular lens implants. Sinuses and mastoids: Clear. Calvarium: Hyperostosis is noted. No destructive calvarial lesion is identified. Cervical cord: Partially visualized cervical spinal cord is normal in morphology and signal intensity . IMPRESSION: No acute intracranial abnormality. ACT 112: Negative or not required by law. Electronically signed by: Tl Jolley M.D. 04/29/2020 7:40 AM
--- NOTE | 2020-04-29 08:40 | Urology Progress Note ---
Date of Service April 29, 2020 Assessment & Plan (1) Microscopic hematuria: (2) Abnormal CT of the abdomen: 65 yo F admitted with acute kidney injury, leukocytosis, and suspected UTI. - Continues to subjectively improve - Creatinine increased slightly today to 2.24, WBC continues to trend down - UC&S prelim Klebsiella, BCx no growth x 24 hours - continue antibiotics, follow cultures - Continue supportive care - Maintain Fallon catheter - Reviewed case with Dr. Toney - No intervention planned today, continue to monitor closely - Make NPO at midnight and reassess again in AM - Reconsider intervention with bilateral stent placement if she fails to improve with antibiotics and supportive care - Will continue to monitor (3) UTI (urinary tract infection): Admission and Anticipated Discharge Date Admission Date: April 27, 2020 Subjective 65 yo F admitted with leukocytosis, [place], and suspected UTI. Pt awake, sitting up in bed eating breakfast. Appears comfortable. Offers no complaints at present. Reports that she continues to feel more like herself. No abdominal, flank or suprapubic pain. Tolerating Fallon catheter. Fallon intact, patent, draining clear yellow urine. No dysuria or hematuria. Reports multiple bowel movements last night. No nausea or vomiting. No fever or chills. Chart review: Afebrile. UC&S prelim Klebsiella. BCx no growth x 24 hours. Creatinine 2.24, WBC 14.64, Hgb 9.7. On IV Daptomycin and Ertapenem. Review of Systems Constitutional: as per Subjective / HPI Gastrointestinal: as per Subjective / HPI Genitourinary: as per Subjective / HPI Physical Exam Constitutional: well developed, well nourished and + morbidly obese; no acute distress and not ill appearing Respiratory: normal respiratory effort and able to speak in complete sentences; no respiratory distress and no labored breathing Cardiovascular: Extremities: no pedal edema Gastrointestinal (Abdomen): Inspection/Auscultation: abdomen normal to inspection; abdomen not distended Percussion/Palpation: abdomen soft; abdomen nontender and no guarding Musculoskeletal: Head/Neck/Chest: normocephalic and head atraumatic Skin: no rashes to exposed skin Neurologic: moves all extremities and awake Psychiatric: A+Ox3, euthymic affect Genitourinary: no CVA tenderness Fallon intact, patent, draining clear yellow urine Results & Data ([facility]) Vital Signs (Past 12 Hours) Vital Signs Temp Pulse Pulse Resp BP Pulse Ox 04/29/20 07:35 36.9 C 88 18 110/77 97 04/29/20 04:00 36.4 C L 96 H 18 134/70 92 04/29/20 00:30 100 H 04/28/20 23:24 36.7 C 98 H 18 129/79 95 PG Care Time/CCT Total # of Minutes Spent Total Time Spent with Patient: Total time spent is greater than 50% in qualitative field coordinator rdination of care (as documented) at patient's floor/unit and/or counseling patient: Coding Level of Care Code 33684 Subseq Hosp Care Lvl 3 Diagnoses Microscopic hematuria R31.[address] of the abdomen R93.5 UTI (urinary tract infection) N39.0
[2020-04-29] MEDS: CHOLECALCIFEROL 1,000 UNITS 25 MCG TAB PO SCH (09:17)
[2020-04-29] MEDS: LACTOBACILLUS ACIDOPHILUS (FLORANEX) TAB PO SCH ×3 (09:17→17:55)
[2020-04-29] MEDS: BACLOFEN 10 MG TAB PO SCH ×3 (09:17→20:56)
[2020-04-29] MEDS: VITAMIN B COMPLEX TAB PO SCH (09:17)
[2020-04-29] MEDS: ARIPiprazole 5 MG TAB PO SCH (09:17)
[2020-04-29] MEDS: FERROUS GLUCONATE 324 MG TAB PO SCH (09:17)
[2020-04-29] MEDS: buPROPion SR 150 MG TABCR PO SCH (09:18)
[2020-04-29] MEDS: INSULIN ASPART 100 UNITS/ML 3 ML PEN SC SCH ×4 (09:20→20:55)
[2020-04-29] MEDS: INSULIN GLARGINE SOLOSTAR 100 UNITS/ML 3 ML PEN SC SCH ×2 (09:21→20:54)
[2020-04-29] MEDS: PANTOprazole 40 MG in SYRINGE 0 ML IV SCH (10:08)
[2020-04-29] MEDS: DAPTOmycin 525 MG in SYRINGE 0 ML IV SCH (10:08)
--- NOTE | 2020-04-29 12:02 | Nephrology Consultation ---
Date of Consultation April 29, 2020 Assessment & Plan (1) Acute kidney injury: Baseline creatinine 1.1 mg/dL. No proteinuria on assessment in November. Records demonstrate a history of recurrent microscopic hematuria attributed to cystitis/recurrent UTI. SOLEDAD is clinically consistent with ATN related to UTI, possible dehydration, and NSAID use. CT does suggest possible obstruction. Urine output has been appropriate for Fallon placement and creatinine is not rising. There is no emergent indication for urologic intervention. Repeat imaging may be considered. Stable creatinine argues against AIN as well. Clinical presentation is not consistent with RPGN in this regard. Please document strict I/O's. Repeat a metabolic profile tomorrow AM. Maintain a slightly positive fluid balance. Medications are appropriately dosed for kidney function. Monitor CK on daptomycin. (2) Microscopic hematuria: Suspect this is non-glomerular related to UTI. May repeat urine studies for clearance in the future. Urology following. Clinical presentation not c onsistent with RPGN. (3) UTI (urinary tract infection): Management per primary team. (4) Abnormal CT of the abdomen: Consider follow up imaging in the next 24-48 hours. History of Present Illness Reason for Consultation: SOLEDAD Requesting Physician: Dale Hillman DO Attending Physician: Dale Hillman DO History of Present Illness Debbie Hardy is a 65-year-old female with acute kidney injury. She was seend and evaluated this morning for nephrology consultation and plan of c are was discussed with COLEEN Chase. Medical history is notable for morbid obesity, recurrent UTI/chronic cystitis, history of ESBL and MRSA UTI, DM, OA/DJD, and chronic anemia. Debbie is a resident at [facility]. She presented to the ER at [facility] on 04/27 with dizziness and weakness. Evaluation notable for SOLEDAD and UTI. Treatment has included IVF and antibiotic therapy with Ertapenem and daptomycin. Urine culture now growing klebsiella. Clinically, Debbie has been improving. The patient had not complaints or concerns today. However, creatinine remains stable at 2.2 mg/dL. Baseline creatinine had been 1.1 mg/dL in February. SOLEDAD on admission attributed to infection, dehydration, and NSAID use. Home medications include use of Empagliflozin and linagliptin. These medications have been held. CT scan from admission was personally reviewed. The study demonstrates normal sized kidneys without significant cortical thinning. Mild bilateral hydronephrosis noted. There is also a density in the right renal pelvis suggestive of bleed. MRI of the head obtained yesterday due to mental status changes. Debbie remains non-oliguric. Electrolytes have been acceptable. Allergies Allergy/AdvReac Type Severity Reaction Status Date / Time Penicillins Allergy Unknown . Verified 04/27/20 11:04 pregabalin Allergy Unknown . Verified 04/27/20 11:04 tramadol Allergy Unknown . Verified 04/27/20 11:04 Home Medications Home Medications Medication Instructions Recorded Confirmed Type acetaminophen [Tylenol] 325 mg PO Q4H PRN 05/23/18 04/27/20 History aspirin 81 mg PO QAM 05/23/18 04/27/20 History baclofen 10 mg PO TID 05/23/18 04/27/20 History bupropion HCl 450 mg PO QAM 05/23/18 04/27/20 History buspirone 10 mg PO DAILY@1600 05/23/18 04/27/20 History dicyclomine 10 mg PO Q6H PRN 05/23/18 04/27/20 History fentanyl 1 patch TRANSDERMAL Q72H 05/23/18 04/27/20 History meloxicam 15 mg PO QAM 05/23/18 04/27/20 History omeprazole 20 mg PO QAM 05/23/18 04/27/20 History oxybutynin chloride 10 mg PO HS 05/23/18 04/27/20 History sennosides-docusate sodium 1 tab PO HS 05/23/18 04/27/20 History [Senokot-S] simvastatin 20 mg PO HS 05/23/18 04/27/20 History D-Mannose 500mg Capsule 1,000 mg PO BID 09/25/19 04/27/20 History cholecalciferol (vitamin D3) 5,000 unit PO QAM 09/25/19 04/27/20 History [Vitamin D3] cyanocobalamin (vitamin B-12) 1,000 mcg IM SUMNER 09/25/19 04/27/20 History vitamin B complex 1 tab PO QAM 09/25/19 04/27/20 History aripiprazole 5 mg PO QAM 04/27/20 04/27/20 History empagliflozin [Jardiance] 25 mg PO DAILY 04/27/20 04/27/20 History linagliptin [Tradjenta] 5 mg PO QAM 04/27/20 04/27/20 History mineral oil-isopropyl myristat 1 applic TOPICAL BID 04/27/20 04/27/20 History [Eucerin] naproxen 500 mg PO BID 04/27/20 04/27/20 History Patient History Medical History Anxiety and depression Bladder spasms Bone infection Chronic pain Dysuria GERD (gastroesophageal reflux disease) Gross hematuria H/O recurrent urinary tract infection H/O: CVA (cerebrovascular accident) History of MRSA infection Hx: UTI (urinary tract infection) Incontinence Left thigh pain Lesion of bladder Morbid obesity Osteomyelitis Surgical History History of cataract surgery S/P cholecystectomy Family History Mother Hypertension Social History Smoking Status: Former smoker Tobacco Type: Cigarettes Second Hand Exposure: No; Hx Alcohol Use: No Hx Substance Use: No Preferred Language: Somali Communication Ability: Impaired Visual Impairment: No Limitations Stable Attendant Required: No Beliefs That Will Affect Care: None marital status: Current Living Situation: Personal Care Facility Current Living Situation Comment: [facility] Feels Safe at Home: Yes Safety Concerns: Feels Safe At This Time Assistive Devices: Denture - Upper, Denture - Lower, Glasses and Oxygen - at Night Review of Systems Review of Systems: All systems reviewed & are unremarkable except as noted in HPI & below Physical Exam Constitutional: well developed and + morbidly obese; no acute distress Eyes: no scleral abnormality and no corneal abnormality ENMT: Mouth: no oral mucosal abnormality and oral mucous membranes not dry Neck: normal visual inspection and trachea midline Respiratory: normal respiratory effort Auscultation: lungs clear to auscultation bilaterally Cardiovascular: Rate/Rhythm: regular rate Heart Sounds: normal S1 and normal S2 Extremities: + edema (trace dependent) Musculoskeletal: Extremities: no cyanosis and no clubbing Skin: normal turgor; no lesions Neurologic: Motor/Sensory: no tremor and no asterixis Psychiatric: Orientation: alert and oriented x 3 Genitourinary: Fallon draining clear yellow urine Results & Data ([facility]) Vital Signs (Past 12 Hours) Vital Signs Temp Pulse Pulse Resp BP Pulse Ox 04/29/20 11:36 36.8 C 98 H 18 133/82 95 04/29/20 08:00 84 04/29/20 07:35 36.9 C 88 18 110/77 97 04/29/20 04:00 36.4 C L 96 H 18 134/70 92 04/29/20 00:30 100 H Laboratory Results Laboratory Results - last 24 hr 04/28/20 04/28/20 04/28/20 12:00 16:47 20:32 WBC RBC Hgb Hct MCV MCH MCHC RDW Std Deviation RDW Coeff of Katina Plt Count MPV Sodium Potassium Chloride Carbon Dioxide Anion Gap BUN Creatinine Est Cr Clr Drug Dosing Est GFR ( Amer) Est GFR (Non-Af Amer) BUN/Creatinine Ratio Glucose POC Glucose 173 H 117 H 134 H Calcium 04/29/20 04/29/20 04/29/20 05:51 05:51 07:40 WBC 14.64 H RBC 3.80 L Hgb 9.7 L Hct 30.1 L MCV 79.2 L MCH 25.5 MCHC 32.2 RDW Std Deviation 53.5 H RDW Coeff of Katina 18.4 H Plt Count 396 MPV 9.0 Sodium 136 Potassium 4.4 Chloride 106 Carbon Dioxide 22 Anion Gap 8.0 BUN 27 H Creatinine 2.24 H Est Cr Clr Drug Dosing 36.9 Est GFR ( Amer) 26.2 Est GFR (Non-Af Amer) 22.6 BUN/Creatinine Ratio 11.8 Glucose 118 H POC Glucose 131 H Calcium 8.4 L 04/29/20 11:47 WBC RBC Hgb Hct MCV MCH MCHC RDW Std Deviation RDW Coeff of Katina Plt Count MPV Sodium Potassium Chloride Carbon Dioxide Anion Gap BUN Creatinine Est Cr Clr Drug Dosing Est GFR ( Amer) Est GFR (Non-Af Amer) BUN/Creatinine Ratio Glucose POC Glucose 137 H Calcium Diagnostic Findings CT scan from admission personally reviewed. Study demonstrates normal sized kidneys without cortical thinning and mild bilateral hydronephrosis with a focus in the right renal pelvis. PG Care Time/CCT Total # of Minutes Spent Total Time Spent with Patient: Total time spent is greater than 50% in coordination of care (as documented) at patient's floor/unit and/or counseling patient: Coding Level of Care Code 67154 Inpt Consult Level 4 Diagnoses Acute kidney injury N17.9 Microscopic hematuria R31.29 UTI (urinary tract infection) N39.[address] of the abdomen R93.5
--- NOTE | 2020-04-29 12:13 | Hospitalist Progress Note ---
Date of Service April 29, 2020 Assessment & Plan (1) UTI (urinary tract infection): Continue ertapenem, will dc daptomycin - urine growing klebsiella BC no growth Per urology - will take patient to OR tomorrow (2) Acute kidney injury: Suspect pre-renal in setting of NSAID use (confirmed taking both meloxicam and naproxen). Hold NSAIDs and aspirin. Possible renal hemorrhage (see below for microscopic hematuria). No postobstructive cause on CT. Continue NSS @ 125 ml/hr. Creatinine slightly higher today at 2.24 Consulted nephrology (3) Anemia: Normocytic Hgb stable at 9.4 DC IV pantoprazole and change to po Hold NSAIDs as above. Fecal occult blood. Possibly secondary to hematuria (see below). Patient's baseline hgb appears to be around 10 so she is not far from her baseline at present. Iron is low at 16, transferrin 139, ferritin 238 - initiated iron supplementation (4) Microscopic hematuria: UA with RBC positive since August although possibly in the setting of UTIs this is more concerning given CT equivocal for right renal pelvis hemorrhage, current anemia and acute kidney injury. Consulted urology - to OR tomorrow (5) Abnormal CT of the abdomen: As above for microscopic hematuria. Consulted nephrology - recommends follow up imaging in 24-48 hours (6) Right shoulder pain: Consider MRI with and without IV contrast once renal function improved to assess for infection given similar symptoms to prior osteomyelitis. XR right shoulder without obvious acute change (7) GERD (gastroesophageal reflux disease): Continue ppi (8) T2DM (type 2 diabetes mellitus): HbA1C 8.3 Hold linagliptin and empagliflozin. Continue Lantus 10 units twice daily, NovoLog sliding scale ACHS, bsgs stable (9) History of MRSA infection: Contact precautions. (10) H/O recurrent urinary tract infection: Recommend not restarting Jardiance on discharge as this will significantly increase her risk of urinary tract infections. (11) Slurred speech: Resolved MRI brain without acute finding (12) DVT prophylaxis: SCDs. No chemical prophylaxis due hematuria/renal hemorrhage as above. Admission and Anticipated Discharge Date Admission Date: April 27, 2020 Subjective Ms. Hardy feels that her right shoulder is improving. She otherwise has no complaints. Her slurred speech appears to have resolved ROS Constitutional: no chills, aches, sweats or fever Respiratory: no sob,cough, sputum, or wheezing Cardiac: no chest pain, palpitations, edema, orthopnea or lightheadedness GI: no abdominal pain, nausea, vomiting, diarrhea or constipation : no dysuria or hesitancy Extremities: no joint pain or weakness Skin: no rash All other systems reviewed and negative Physical Exam Physical Exam: General: no distress Eyes: normal inspection, PERLL Respiratory: chest non tender, clear to auscultation, normal breath sounds, no respiratory distress, no accessory muscle use Cardiac: regular rate and rhythm, no rub or gallop, no murmur, no edema, no jvd GI/: active bowel sounds, no abd pain or tenderness, soft, non distended Extremities: normal range of motion, normal strength, non tender Neuro/Psych: alert and oriented x 3, normal mood and affect Skin: normal color, dry Results & Data Results & Data ([facility]) Vital Signs (Past 12 Hours) Vital Signs Temp Pulse Pulse Resp BP Pulse Ox 04/29/20 11:36 36.8 C 98 H 18 133/82 95 04/29/20 08:00 84 04/29/20 07:35 36.9 C 88 18 110/77 97 04/29/20 04:00 36.4 C L 96 H 18 134/70 92 04/29/20 00:30 100 H PG Care Time/CCT Total # of Minutes Spent Total Time Spent with Patient: Total time spent is greater than 50% in coordination of care (as documented) at patient's floor/unit and/or counseling patient: Coding Level of Care Code 83439 Subseq Hosp Care Lvl 3 Diagnoses UTI (urinary tract infection) N39.0 Acute kidney injury N17.9 Anemia D64.9 Microscopic hematuria R31.[address] of the abdomen R93.5 Right shoulder pain M25.511 GERD (gastroesophageal reflux disease) K21.9 T2DM (type 2 diabetes mellitus) E11.9 History of MRSA infection Z86.14 H/O recurrent urinary tract infection Z87.440 Slurred speech R47.81 DVT prophylaxis Z29.9
[2020-04-29] MEDS: ERTAPENEM SODIUM 1,000 MG in SODIUM CHLORIDE 0.9% 50 ML IV SCH (13:56)
[2020-04-29] MEDS: busPIRone 5 MG TAB PO SCH (17:53)
[2020-04-29] MEDS: DOCUSATE SODIUM/SENNA 50/8.6MG TAB PO SCH (20:56)
[2020-04-30] MEDS: LACTATED RINGER'S 1,000 ML IV SCH ×3 (03:15→19:09)
[2020-04-30 07:24] LABS: Hematocrit (blood only) 28.6 % (37-47); Hemoglobin 8.9 g/dL (12.0-16.0); Mean Corpuscular Hemoglobin 25.1 pg (25-34); Mean Corpuscular Hgb Conc 31.1 g/dL (32-36); Mean Corpuscular Volume 80.6 fL (80-100); Mean Platelet Volume 9.2 fL (7.4-10.4); Platelet Count 524 K/uL (130-400); RDW Coefficient of Variation 18.5 % (11.5-14.5); RDW Standard Deviation 55.2 fL (36.4-46.3); Red Blood Count 3.55 M/uL (4.2-5.4)
[2020-04-30 07:48] LABS: Albumin Level 1.5 gm/dl (3.4-5.0); BUN Creatinine Ratio 13.5 (10-20); Calcium 8.8 mg/dl (8.5-10.1); Creatinine Clr Calc Pharmacy 37.8 ml/min; Est GFR (African American) 27.1; Est GFR (Non-African American) 23.4; Potassium 4.3 mmol/L (3.5-5.1)
[2020-04-30 07:49] LABS: Phosphorus 4.3 mg/dl (2.5-4.9)
[2020-04-30] MEDS: INSULIN ASPART 100 UNITS/ML 3 ML PEN SC SCH ×4 (09:32→21:39)
[2020-04-30] MEDS: ARIPiprazole 5 MG TAB PO SCH (09:33)
[2020-04-30] MEDS: LACTOBACILLUS ACIDOPHILUS (FLORANEX) TAB PO SCH ×2 (09:33→12:45)
[2020-04-30] MEDS: BACLOFEN 10 MG TAB PO SCH (09:34)
[2020-04-30] MEDS: FERROUS GLUCONATE 324 MG TAB PO SCH (09:34)
[2020-04-30] MEDS: INSULIN GLARGINE SOLOSTAR 100 UNITS/ML 3 ML PEN SC SCH ×2 (09:34→21:38)
[2020-04-30] MEDS: VITAMIN B COMPLEX TAB PO SCH (09:35)
[2020-04-30] MEDS: PANTOprazole 40 MG TAB PO SCH (09:35)
[2020-04-30] MEDS: CHOLECALCIFEROL 1,000 UNITS 25 MCG TAB PO SCH (09:36)
[2020-04-30] MEDS: buPROPion SR 150 MG TABCR PO SCH (09:36)
--- NOTE | 2020-04-30 10:20 | Urology Progress Note ---
Date of Service April 30, 2020 Assessment & Plan (1) Microscopic hematuria: (2) Abnormal CT of the abdomen: 65 yo F admitted with acute kidney injury, leukocytosis, and suspected UTI. - Continues to subjectively improve - Creatinine improved to 2.18 today, WBC continues to trend down - UC&S Klebsiella - on Ertapenem - BCx no growth x 48 hours - Continue supportive care - Maintain Fallon catheter - Reviewed case with Dr. Toney - Creatinine improved, clinically asymptomatic - no intervention planned today, continue to monitor closely - Make NPO at midnight and reassess again in AM - Reconsider intervention with bilateral stent placement if she fails to improve with antibiotics and supportive care - Will continue to monitor (3) UTI (urinary tract infection): Admission and Anticipated Discharge Date Admission Date: April 27, 2020 Subjective 65 yo F admitted with leukocytosis, SOLEDAD, and suspected UTI. Pt awake, sitting up in bed. Appears comfortable, no complaints at present. Reports that she continues to feel better. No abdominal, flank or suprapubic pain. Tolerating Fallon catheter. Fallon intact, patent, draining clear yellow urine with some sediment noted. No dysuria or hematuria. No f/c/n/v. Chart review: Afebrile. UC&S Klebsiella - on Ertapenem. BCx no growth x 48 hours. Creatinine 2.18, WBC 13.10, Hgb 8.9. No additional concerns. Review of Systems Constitutional: as per Subjective / HPI Gastrointestinal: as per Subjective / HPI Genitourinary: as per Subjective / HPI Physical Exam Constitutional: well developed, well nourished and + morbidly obese; no acute distress and not ill appearing Respiratory: normal respiratory effort and able to speak in complete sentences; no respiratory distress and no labored breathing Cardiovascular: Extremities: no pedal edema Gastrointestinal (Abdomen): Inspection/Auscultation: abdomen normal to inspection; abdomen not distended Percussion/Palpation: abdomen soft; abdomen nontender Musculoskeletal: Head/Neck/Chest: normocephalic and head atraumatic Skin: warm and dry Neurologic: moves all extremities and awake Psychiatric: A+Ox3, euthymic affect Genitourinary: no CVA tenderness Results & Data ([facility]) Vital Signs (Past 12 Hours) Vital Signs Temp Pulse Pulse Resp BP BP Pulse Ox 04/30/20 07:45 36.9 C 94 H 20 123/77 93 04/30/20 07:19 84 04/30/20 04:38 36.6 C 81 20 137/83 95 04/30/20 00:00 83 04/29/20 23:00 36.9 C 92 H 18 129/76 94 PG Care Time/CCT Total # of Minutes Spent Total Time Spent with Patient: Total time spent is greater than 50% in coordination of care (as documented) at patient's floor/unit and/or counseling patient: Coding Level of Care Code 69235 Subseq Hosp Care Lvl 2 Diagnoses Microscopic hematuria R31.[address] of the abdomen R93.5 UTI (urinary tract infection) N39.0
--- NOTE | 2020-04-30 12:09 | Nephrology Progress Note ---
Date of Service April 30, 2020 Assessment & Plan (1) Acute kidney injury: Baseline creatinine 1.1 mg/dL. No proteinuria on assessment in November. Records demonstrate a history of recurrent microscopic hematuria attributed to cystitis/recurrent UTI. SOLEDAD is clinically consistent with ATN related to UTI, possible dehydration, and NSAID use. CT did suggest possible obstruction with bilateral hydronephrosis. Urine output has been appropriate for Fallon placement and creatinine is not rising. Repeat imaging may be considered. No plan for urologic intervention at this time - urology consult appreciated. Stable creatinine argues against AIN as well. Please document strict I/O's. Repeat a metabolic profile tomorrow AM. Maintain an even to slightly positive fluid balance. LR @ 125 ml/hr currently infusing but may hold if urine output decreases or tolerating adequate PO intake. Medications are appropriately dosed for kidney function. Monitor CK on daptomycin. (2) Microscopic hematuria: Suspect this is non-glomerular related to UTI. Outpatient nephrology follow up to monitor for clearance. (3) UTI (urinary tract infection): Management per primary team. (4) Abnormal CT of the abdomen: Consider follow up imaging. Admission and Anticipated Discharge Date Admission Date: April 27, 2020 Subjective No acute events overnight. Debbie feels well this morning. No fevers or chills. She denies pain. Fallon draining clear yellow urine. UOP past 24 hours ~ 4.6 L. Review of Systems Review of Systems: All systems reviewed & are unremarkable except as noted in HPI & below Physical Exam Constitutional: well developed and + morbidly obese; no acute distress Eyes: no scleral abnormality and no corneal abnormality ENMT: Mouth: no oral mucosal abnormality and oral mucous membranes not dry Neck: normal visual inspection and trachea midline Respiratory: normal respiratory effort Auscultation: lungs clear to auscultation bilaterally Cardiovascular: Rate/Rhythm: regular rate Heart Sounds: normal S1 and normal S2 Extremities: + edema (trace dependent) Musculoskeletal: Extremities: no cyanosis and no clubbing Skin: normal turgor; no lesions Neurologic: Motor/Sensory: no tremor and no asterixis Psychiatric: Orientation: alert and oriented x 3 Results & Data ([facility]) Vital Signs (Past 12 Hours) Vital Signs Temp Pulse Pulse Resp BP Pulse Ox 04/30/20 07:45 36.9 C 94 H 20 123/77 93 04/30/20 07:19 84 04/30/20 04:38 36.6 C 81 20 137/83 95 Laboratory Results Laboratory Results - last 24 hr 04/29/20 04/29/20 04/30/20 16:23 20:25 06:53 WBC RBC Hgb Hct MCV MCH MCHC RDW Std Deviation RDW Coeff of Katina Plt Count MPV Sodium 138 Potassium 4.3 Chloride 108 H Carbon Dioxide 23 Anion Gap 8.0 BUN 29 H Creatinine 2.18 H Est Cr Clr Drug Dosing 37.8 Est GFR ( Amer) 27.1 Est GFR (Non-Af Amer) 23.4 BUN/Creatinine Ratio 13.5 Glucose 105 H POC Glucose 145 H 139 H Calcium 8.8 Phosphorus 4.3 Albumin 1.5 L 04/30/20 04/30/20 04/30/20 06:53 07:49 11:29 WBC 13.10 H RBC 3.55 L Hgb 8.9 L Hct 28.6 L MCV 80.6 MCH 25.1 MCHC 31.1 L RDW Std Deviation 55.2 H RDW Coeff of Katina 18.5 H Plt Count 524 H MPV 9.2 Sodium Potassium Chloride Carbon Dioxide Anion Gap BUN Creatinine Est Cr Clr Drug Dosing Est GFR ( Amer) Est GFR (Non-Af Amer) BUN/Creatinine Ratio Glucose POC Glucose 124 H 126 H Calcium Phosphorus Albumin PG Care Time/CCT Total # of Minutes Spent Total Time Spent with Patient: Total time spent is greater than 50% in coordination of care (as documented) at patient's floor/unit and/or counseling patient: Coding Level of Care Code 99907 Subseq Hosp Care Lvl 3 Diagnoses Acute kidney injury N17.9 Microscopic hematuria R31.29 UTI (urinary tract infection) N39.[address] of the abdomen R93.5
[2020-04-30] MEDS: ERTAPENEM SODIUM 1,000 MG in SODIUM CHLORIDE 0.9% 50 ML IV SCH (13:35)
--- NOTE | 2020-04-30 14:03 | Hospitalist Progress Note ---
Date of Service April 30, 2020 Assessment & Plan (1) UTI (urinary tract infection): Continue ertapenem - urine growing klebsiella BC no growth Per urology - continue supportive care (2) Acute kidney injury: In setting of NSAID use (confirmed taking both meloxicam and naproxen). Hold NSAIDs and aspirin. Possible renal hemorrhage (see below for microscopic hematuria). No postobstructive cause on CT. Continue NSS @ 125 ml/hr. Creatinine continues to be elevated though marginally better than yesterday at 2.18 Consulted nephrology (3) Anemia: Iron deficient Hgb slightly lower today at 8.9 but within the same range as she has been this hospitalization. Hold NSAIDs as above. Patient's baseline hgb appears to be around 10 so she is not far from her baseline at present. Iron is low at 16, transferrin 139, ferritin 238 - initiated iron supplementation (4) Microscopic hematuria: UA with RBC positive since August, CT equivocal for right renal pelvis hemorrhage, current anemia and acute kidney injury. Will repeat imaging with renal US (5) Abnormal CT of the abdomen: As above for microscopic hematuria. (6) Right shoulder pain: Consider MRI with and without IV contrast once renal function improved to assess for infection given similar symptoms to prior osteomyelitis. XR right shoulder without obvious acute change (7) GERD (gastroesophageal reflux disease): Continue ppi (8) T2DM (type 2 diabetes mellitus): HbA1C 8.3 Hold linagliptin and empagliflozin. Continue Lantus 10 units twice daily, NovoLog sliding scale ACHS, bsgs stable (9) History of MRSA infection: Contact precautions. (10) H/O recurrent urinary tract infection: Recommend not restarting Jardiance on discharge as this will significantly increase her risk of urinary tract infections. (11) Slurred speech: Resolved MRI brain without acute finding (12) DVT prophylaxis: SCDs. No chemical prophylaxis due hematuria/renal hemorrhage as above. Admission and Anticipated Discharge Date Admission Date: April 27, 2020 Subjective Ms. Hardy is feeling well, shoulder pain is improved. No other complaints ROS Constitutional: no chills, aches, sweats or fever Respiratory: no sob,cough, sputum, or wheezing Cardiac: no chest pain, palpitations, edema, orthopnea or lightheadedness GI: no abdominal pain, nausea, vomiting, diarrhea or constipation : no dysuria or hesitancy Extremities: no joint pain or weakness Skin: no rash All other systems reviewed and negative Physical Exam Physical Exam: General: no distress Eyes: normal inspection, PERLL Respiratory: chest non tender, clear to auscultation, normal breath sounds, no respiratory distress, no accessory muscle use Cardiac: regular rate and rhythm, no rub or gallop, no murmur, no edema, no jvd GI/: active bowel sounds, no abd pain or tenderness, soft, non distended Extremities: normal range of motion, normal strength, non tender Neuro/Psych: alert and oriented x 3, normal mood and affect Skin: normal color, dry Results & Data Results & Data ([facility]) Vital Signs (Past 12 Hours) Vital Signs Temp Pulse Pulse Resp BP Pulse Ox 04/30/20 12:16 36.8 C 90 22 141/80 H 91 04/30/20 07:45 36.9 C 94 H 20 123/77 93 04/30/20 07:19 84 04/30/20 04:38 36.6 C 81 20 137/83 95 PG Care Time/CCT Total # of Minutes Spent Total Time Spent with Patient: Total time spent is greater than 50% in coord ination of care (as documented) at patient's floor/unit and/or counseling patient: Coding Level of Care Code 88846 Subseq Hosp Care Lvl 3 Diagnoses UTI (urinary tract infection) N39.0 Acute kidney injury N17.9 Anemia D64.9 Microscopic hematuria R31.[address] of the abdomen R93.5 Right shoulder pain M25.511 GERD (gastroesophageal reflux disease) K21.9 T2DM (type 2 diabetes mellitus) E11.9 History of MRSA infection Z86.14 H/O recurrent urinary tract infection Z87.440 Slurred speech R47.81 DVT prophylaxis Z29.9
--- NOTE | 2020-04-30 15:11 | Ultrasound Report ---
RENAL ULTRASOUND CLINICAL HISTORY: Renal pelvis hemorrhage. Bilateral hydronephrosis. COMPARISON STUDY: CT of the abdomen and pelvis April 27, 2020. TECHNIQUE: Sonography of the kidneys and the urinary bladder was performed. FINDINGS: This exam is compromised by suboptimal penetration. The right kidney measures 10.9 x 5.6 x 5.8 cm and the left measures 11.1 x 4.7 x 6.4 cm. Right hydronephrosis shown on exam of April 27 020 has resolved. There is mild left collecting system dilatation which has likely improved. Increase d hepatic echogenicity favors fatty infiltration. Bladder is collapsed, containing a Fallon balloon. IMPRESSION: 1. Interval resolution of right hydronephrosis and interval improvement in left hydronephrosis since CT of April 27, 2020. 2. Exam compromised by suboptimal penetration. ACT 112: Negative or not required by law. Electronically signed by: Larry Corral M.D. 04/30/2020 3:10 PM
[2020-04-30] MEDS: busPIRone 5 MG TAB PO SCH (16:51)
[2020-04-30] MEDS: ACETAMINOPHEN 325 MG TAB PO PRN (17:47)
[2020-04-30] MEDS: DOCUSATE SODIUM/SENNA 50/8.6MG TAB PO SCH (21:39)
[2020-05-01] MEDS: ACETAMINOPHEN 325 MG TAB PO PRN ×2 (01:27→23:54)
[2020-05-01] MEDS: LACTATED RINGER'S 1,000 ML IV SCH ×2 (02:48→11:37)
[2020-05-01 07:51] LABS: Hemoglobin 9.3 g/dL (12.0-16.0); Mean Corpuscular Volume 80.6 fL (80-100); Mean Platelet Volume 9.1 fL (7.4-10.4); Platelet Count 519 K/uL (130-400); RDW Coefficient of Variation 18.6 % (11.5-14.5); RDW Standard Deviation 54.4 fL (36.4-46.3); Red Blood Count 3.72 M/uL (4.2-5.4); White Blood Count 11.02 K/uL (4.8-10.8)
[2020-05-01 08:24] LABS: BUN Creatinine Ratio 13.5 (10-20); Calcium 8.8 mg/dl (8.5-10.1); Creatinine Clr Calc Pharmacy 38.5 ml/min; Est GFR (African American) 27.7; Est GFR (Non-African American) 23.9; Potassium 4.2 mmol/L (3.5-5.1)
[2020-05-01] MEDS: INSULIN ASPART 100 UNITS/ML 3 ML PEN SC SCH ×4 (09:29→22:16)
[2020-05-01] MEDS: INSULIN GLARGINE SOLOSTAR 100 UNITS/ML 3 ML PEN SC SCH ×2 (09:56→22:16)
[2020-05-01] MEDS: FERROUS GLUCONATE 324 MG TAB PO SCH (09:56)
[2020-05-01] MEDS: ARIPiprazole 5 MG TAB PO SCH (09:56)
[2020-05-01] MEDS: CHOLECALCIFEROL 1,000 UNITS 25 MCG TAB PO SCH (09:57)
[2020-05-01] MEDS: buPROPion SR 150 MG TABCR PO SCH (09:57)
[2020-05-01] MEDS: ADVANCED PROBIOTIC 1250 MG CAPSULE PO SCH (09:57)
[2020-05-01] MEDS: VITAMIN B COMPLEX TAB PO SCH (09:57)
[2020-05-01] MEDS: PANTOprazole 40 MG TAB PO SCH (09:57)
--- NOTE | 2020-05-01 11:43 | Urology Progress Note ---
Date of Service May 01, 2020 Assessment & Plan (1) UTI (urinary tract infection): (2) Leukocytosis: (3) Acute kidney injury: Continue Iv antibiotic and wait for fungal culture . If positive may need ID consult but would consider bladder irrigation w amphotericin and capsofungin . Will feed today . Admission and Anticipated Discharge Date Admission Date: April 27, 2020 Subjective Pt anxious today . Reviewed films and suspect patients long standing bladder infection may be causing some obstruction at the level of the uvj that hopefully will resolve with an indwelling engel and also note positive vulva cultures for sonja not albicans and ordered a fungal urine culture. Concerned that placing stents would only allow pts chronic bladder infection to colonize her kidneys and will hold offf unless creatinine begins to rise. If pt has fungal UTi she may need amphotericin bladder irrigation as well as IV capsofungin . Creatinine slightly better and wbc down from 13 k to 11k Will feed today and continue to follow. If creatinine slowly declines and fungal culture negative would d/c on oral antibiotic with engel until creatinine normalizes. Results & Data ([facility]) Vital Signs (Past 12 Hours) Vital Signs Temp Pulse Pulse Resp BP BP Pulse Ox 05/01/20 11:11 36.5 C 87 18 130/78 94 05/01/20 07:52 36.5 C 86 19 106/57 L 96 05/01/20 07:20 78 05/01/20 04:03 36.7 C 83 18 121/77 93 05/01/20 00:00 36.6 C 83 18 125/73 94 PG Care Time/CCT Total # of Minutes Spent Total Time Spent with Patient: Total time spent is greater than 50% in coordination of care (as documented) at patient's floor/unit and/or counseling patient: Coding Level of Care Code 58474 Subseq Hosp Care Lvl 2 Diagnoses UTI (urinary tract infection) N39.0 Leukocytosis D72.829 Acute kidney injury N17.9
--- NOTE | 2020-05-01 12:13 | Nephrology Progress Note ---
Date of Service May 01, 2020 Assessment & Plan (1) Acute kidney injury: Baseline creatinine 1.1 mg/dL. No proteinuria on assessment in November. Records demonstrate a history of recurrent microscopic hematuria attributed to cystitis/recurrent UTI. Chronic cystitis also possibly contributing to UVJ obstruction. SOLEDAD is clinically consistent with ATN related to UTI, possible dehydration, and NSAID use. Likely obstruction also contributory. Creatinine stable thankfully and adequate urine output. Repeat CT yesterday demonstrating improvement in hydronephrosis following Fallno placement. Urology consultation appreciated. IV fluid stopped. Volume status acceptable and oral intake appropriate. Please document I/O's. Repeat a metabolic profile within a week of hospital discharge (results can be faxed to me at [phone]). Follow up in the nephrology clinic within 2 weeks of discharge. Nephrology will sign-off now. Please call with questions or concerns. . Medications are appropriately dosed for kidney function. Monitor CK on daptomycin. (2) Microscopic hematuria: Suspect this is non-glomerular related to UTI. Outpatient nephrology follow up to monitor for clearance. (3) UTI (urinary tract infection): (4) Abnormal CT of the abdomen: US demonstrates improvement following Fallon placement. Urology follow up arranged. Possible UVJ obstruction related to chronic cystitis. Admission and Anticipated Discharge Date Admission Date: April 27, 2020 Subjective No acute events overnight. Debbie was seen and evaluated with her daughter at the bedside. Debbie feels well. No fevers or chills. Fallon draining clear yellow urine. She denies pain or discomfort. Appetite is good. Review of Systems Review of Systems: All systems reviewed & are unremarkable except as noted in HPI & below Physical Exam Constitutional: well developed and + morbidly obese; no acute distress Eyes: no scleral abnormality and no corneal abnormality ENMT: Mouth: no oral mucosal abnormality and oral mucous membranes not dry Neck: normal visual inspection and trachea midline Respiratory: normal respiratory effort Auscultation: lungs clear to auscultation bilaterally Cardiovascular: Rate/Rhythm: regular rate Heart Sounds: normal S1 and normal S2 Extremities: + edema (trace dependent) Musculoskeletal: Extremities: no cyanosis and no clubbing Skin: normal turgor; no lesions Neurologic: Motor/Sensory: no tremor and no asterixis Psychiatric: Orientation: alert and oriented x 3 Genitourinary: Fallon draining clear yellow urine Results & Data ([facility]) Vital Signs (Past 12 Hours) Vital Signs Temp Pulse Pulse Resp BP BP Pulse Ox 05/01/20 11:11 36.5 C 87 18 130/78 94 05/01/20 07:52 36.5 C 86 19 106/57 L 96 05/01/20 07:20 78 05/01/20 04:03 36.7 C 83 18 121/77 93 Laboratory Results Laboratory Results - last 24 hr 04/30/20 04/30/20 05/01/20 16:26 20:23 07:03 WBC 11.02 H RBC 3.72 L Hgb 9.3 L Hct 30.0 L MCV 80.6 MCH 25.0 MCHC 31.0 L RDW Std Deviation 54.4 H RDW Coeff of Katina 18.6 H Plt Count 519 H MPV 9.1 Sodium Potassium Chloride Carbon Dioxide Anion Gap BUN Creatinine Est Cr Clr Drug Dosing Est GFR ( Amer) Est GFR (Non-Af Amer) BUN/Creatinine Ratio Glucose POC Glucose 103 H 119 H Calcium 05/01/20 05/01/20 05/01/20 07:03 07:47 12:03 WBC RBC Hgb Hct MCV MCH MCHC RDW Std Deviation RDW Coeff of Katina Plt Count MPV Sodium 138 Potassium 4.2 Chloride 108 H Carbon Dioxide 24 Anion Gap 7.0 BUN 29 H Creatinine 2.14 H Est Cr Clr Drug Dosing 38.5 Est GFR ( Amer) 27.7 Est GFR (Non-Af Amer) 23.9 BUN/Creatinine Ratio 13.5 Glucose 100 H POC Glucose 116 H 108 H Calcium 8.8 PG Care Time/CCT Total # of Minutes Spent Total Time Spent with Patient: Total time spent is greater than 50% in coordination of care (as documented) at patient's floor/unit and/or counseling patient: Coding Level of Care Code 08718 Subseq Hosp Care Lvl 3 Diagnoses Acute kidney injury N17.9 Microscopic hematuria R31.29 UTI (urinary tract infection) N39.[address] of the abdomen R93.5
--- NOTE | 2020-05-01 12:52 | Hospitalist Progress Note ---
Date of Service May 01, 2020 Assessment & Plan (1) UTI (urinary tract infection): Continue ertapenem - urine growing klebsiella BC no growth, fugal culture ordered by urology Per urology - continue supportive care, maintain engel catheter at discharge (2) Acute kidney injury: In setting of NSAID use (confirmed taking both meloxicam and naproxen). Hold NSAIDs and aspirin. DC fluids Creatinine continues to be elevated though marginally better than yesterday at 2.14 Possible UVJ obstruction related to chronic cystitis Renal US with improvement Consulted nephrology - repeat bmp one week after discharge and fax to [phone], follow up in the nephrology clinic in 2 weeks after dc (3) Anemia: Iron deficient Hgb stable around 9.5 Hold NSAIDs as above. Patient's baseline hgb appears to be around 10 so she is not far from her baseline at present. Iron is low at 16, transferrin 139, ferritin 238 - initiated iron supplementation (4) Microscopic hematuria: UA with RBC positive since August, CT equivocal for right renal pelvis hemorrhage, current anemia and acute kidney injury. Repeat imaging with US showing improvement (5) Abnormal CT of the abdomen: As above for microscopic hematuria. (6) Right shoulder pain: XR right shoulder without obvious acute change but does show chronic rotator cuff injury (7) GERD (gastroesophageal reflux disease): Continue ppi (8) T2DM (type 2 diabetes mellitus): HbA1C 8.3 Hold linagliptin and empagliflozin. Continue Lantus 10 units twice daily, NovoLog sliding scale ACHS, bsgs stable (9) History of MRSA infection: Contact precautions. (10) H/O recurrent urinary tract infection: Recommend not restarting Jardiance on discharge as this will significantly increase her risk of urinary tract infections. (11) Slurred speech: Resolved MRI brain without acute finding (12) DVT prophylaxis: SCDs. No chemical prophylaxis due hematuria/renal hemorrhage as above. Admission and Anticipated Discharge Date Admission Date: April 27, 2020 Subjective Ms. Hardy's shoulder pain is improving. She otherwise has no complaints. ROS Constitutional: no chills, aches, sweats or fever Respiratory: no sob,cough, sputum, or wheezing Cardiac: no chest pain, palpitations, edema, orthopnea or lightheadedness GI: no abdominal pain, nausea, vomiting, diarrhea or constipation : no dysuria or hesitancy Extremities: no joint pain or weakness Skin: no rash All other systems reviewed and negative Physical Exam Physical Exam: General: no distress Eyes: normal inspection, PERLL Respiratory: chest non tender, clear to auscultation, normal breath sounds, no respiratory distress, no accessory muscle use Cardiac: regular rate and rhythm, no rub or gallop, no murmur, no edema, no jvd GI/: active bowel sounds, no abd pain or tenderness, soft, non distended Extremities: normal range of motion, normal strength, non tender Neuro/Psych: alert and oriented x 3, normal mood and affect Skin: normal color, dry Results & Data Results & Data ([facility]) Vital Signs (Past 12 Hours) Vital Signs Temp Pulse Pulse Resp BP BP Pulse Ox 05/01/20 11:11 36.5 C 87 18 130/78 94 05/01/20 07:52 36.5 C 86 19 106/57 L 96 05/01/20 07:20 78 05/01/20 04:03 36.7 C 83 18 121/77 93 PG Care Time/CCT Total # of Minutes Spent Total Time Spent with Patient: Total time spent is greater than 50% in coordination of care (as documented) at patient's floor/unit and/or counseling patient: Coding Level of Care Code 02844 Subseq Hosp Care Lvl 2 Diagnoses UTI (urinary tract infection) N39.0 Acute kidney injury N17.9 Anemia D64.9 Microscopic hematuria R31.[address] of the abdomen R93.5 Right shoulder pain M25.511 GERD (gastroesophageal reflux disease) K21.9 T2DM (type 2 diabetes mellitus) E11.9 History of MRSA infection Z86.14 H/O recurrent urinary tract infection Z87.440 Slurred speech R47.81 DVT prophylaxis Z29.9
[2020-05-01] MEDS: ERTAPENEM SODIUM 1,000 MG in SODIUM CHLORIDE 0.9% 50 ML IV SCH (13:35)
[2020-05-01] MEDS: busPIRone 5 MG TAB PO SCH (16:47)
[2020-05-01] MEDS: DOCUSATE SODIUM/SENNA 50/8.6MG TAB PO SCH (22:17)
[2020-05-02 08:42] LABS: Hematocrit (blood only) 29.7 % (37-47); Hemoglobin 9.4 g/dL (12.0-16.0); Mean Corpuscular Hemoglobin 25.5 pg (25-34); Mean Corpuscular Hgb Conc 31.6 g/dL (32-36); Mean Corpuscular Volume 80.5 fL (80-100); Platelet Count 569 K/uL (130-400); RDW Coefficient of Variation 18.5 % (11.5-14.5); RDW Standard Deviation 54.3 fL (36.4-46.3); Red Blood Count 3.69 M/uL (4.2-5.4); White Blood Count 12.55 K/uL (4.8-10.8)
[2020-05-02] MEDS: buPROPion SR 150 MG TABCR PO SCH (08:42)
[2020-05-02] MEDS: CHOLECALCIFEROL 1,000 UNITS 25 MCG TAB PO SCH (08:44)
[2020-05-02] MEDS: VITAMIN B COMPLEX TAB PO SCH (08:45)
[2020-05-02] MEDS: PANTOprazole 40 MG TAB PO SCH (08:45)
[2020-05-02] MEDS: FERROUS GLUCONATE 324 MG TAB PO SCH (08:45)
[2020-05-02] MEDS: ADVANCED PROBIOTIC 1250 MG CAPSULE PO SCH (08:45)
[2020-05-02] MEDS: ARIPiprazole 5 MG TAB PO SCH (08:46)
[2020-05-02] MEDS: INSULIN GLARGINE SOLOSTAR 100 UNITS/ML 3 ML PEN SC SCH ×2 (08:47→22:07)
[2020-05-02] MEDS: INSULIN ASPART 100 UNITS/ML 3 ML PEN SC SCH ×4 (08:49→21:42)
[2020-05-02 09:10] LABS: BUN Creatinine Ratio 12.9 (10-20); Calcium 9.1 mg/dl (8.5-10.1); Creatinine Clr Calc Pharmacy 40.1 ml/min; Est GFR (African American) 29.7; Est GFR (Non-African American) 25.6
--- NOTE | 2020-05-02 12:54 | Hospitalist Progress Note ---
Date of Service May 02, 2020 Assessment & Plan (1) UTI (urinary tract infection): Continue ertapenem - urine growing klebsiella BC no growth, fugal culture ordered by urology Per urology - continue supportive care, maintain engel catheter at discharge (2) Acute kidney injury: In setting of NSAID use (confirmed taking both meloxicam and naproxen). Hold NSAIDs and aspirin. DC fluids Creatinine continues to be elevated though marginally better than yesterday at 2 Possible UVJ obstruction related to chronic cystitis Renal US with improvement Consulted nephrology - repeat bmp one week after discharge and fax to [phone], follow up in the nephrology clinic in 2 weeks after dc (3) Anemia: Iron deficient Hgb stable around 9.5 Hold NSAIDs as above. Patient's baseline hgb appears to be around 10 so she is not far from her baseline at present. Iron is low at 16, transferrin 139, ferritin 238 - initiated iron supplementation (4) Microscopic hematuria: UA with RBC positive since August, CT equivocal for right renal pelvis hemorrhage, current anemia and acute kidney injury. Repeat imaging with US showing improvement (5) Abnormal CT of the abdomen: As above for microscopic hematuria. (6) Right shoulder pain: XR right shoulder without obvious acute change but does show chronic rotator cuff injury (7) GERD (gastroesophageal reflux disease): Continue ppi (8) T2DM (type 2 diabetes mellitus): HbA1C 8.3 Hold linagliptin and empagliflozin. Continue Lantus 10 units twice daily, NovoLog sliding scale ACHS, bsgs stable (9) History of MRSA infection: Contact precautions. (10) H/O recurrent urinary tract infection: Recommend not restarting Jardiance on discharge as this will significantly increase her risk of urinary tract infections. (11) DVT prophylaxis: SCDs. No chemical prophylaxis due hematuria/renal hemorrhage as above. dispo: if fungal culture is negative, can discharge back to [facility] Admission and Anticipated Discharge Date Admission Date: April 27, 2020 Subjective Ms. Hardy is a bit delirious with intermittent confusion as we talk. She has no pain or discomfort. Daughter at bedside and updated. ROS Constitutional: no chills, aches, sweats or fever Respiratory: no sob,cough, sputum, or wheezing Cardiac: no chest pain, palpitations, edema, orthopnea or lightheadedness GI: no abdominal pain, nausea, vomiting, diarrhea or constipation : no dysuria or hesitancy Extremities: no joint pain or weakness Skin: no rash All other systems reviewed and negative Physical Exam Physical Exam: General: no distress Eyes: normal inspection, PERLL Respiratory: chest non tender, clear to auscultation, normal breath sounds, no respiratory distress, no accessory muscle use Cardiac: regular rate and rhythm, no rub or gallop, no murmur, no edema, no jvd GI/: active bowel sounds, no abd pain or tenderness, soft, non distended Extremities: normal range of motion, normal strength, non tender Neuro/Psych: alert and oriented x 3 with confusion , normal mood and affect, no focal deficits Skin: normal color, dry Results & Data Results & Data ([facility]) Vital Signs (Past 12 Hours) Vital Signs Temp Pulse Pulse Resp BP BP Pulse Ox 05/02/20 11:43 36.4 C L 93 H 16 129/76 94 05/02/20 07:30 36.9 C 91 H 18 136/84 94 05/02/20 03:34 36.7 C 85 20 119/76 95 05/02/20 01:19 93 H PG Care Time/CCT Total # of Minutes Spent Total Time Spent with Patient: Total time spent is greater than 50% in coordination of care (as documented) at patient's floor/unit and/or counseling patient: Coding Level of Care Code 98827 Subseq Hosp Care Lvl 2 Diagnoses UTI (urinary tract infection) N39.0 Acute kidney injury N17.9 Anemia D64.9 Microscopic hematuria R31.[address] of the abdomen R93.5 Right shoulder pain M25.511 GERD (gastroesophageal reflux disease) K21.9 T2DM (type 2 diabetes mellitus) E11.9 History of MRSA infection Z86.14 H/O recurrent urinary tract infection Z87.440 DVT prophylaxis Z29.9
[2020-05-02] MEDS: ERTAPENEM SODIUM 1,000 MG in SODIUM CHLORIDE 0.9% 50 ML IV SCH (13:17)
[2020-05-02] MEDS: busPIRone 5 MG TAB PO SCH (17:42)
[2020-05-02] MEDS: DOCUSATE SODIUM/SENNA 50/8.6MG TAB PO SCH ×2 (22:07→22:23)
[2020-05-03] MEDS: FERROUS GLUCONATE 324 MG TAB PO SCH (07:59)
[2020-05-03] MEDS: VITAMIN B COMPLEX TAB PO SCH (07:59)
[2020-05-03] MEDS: PANTOprazole 40 MG TAB PO SCH (07:59)
[2020-05-03] MEDS: buPROPion SR 150 MG TABCR PO SCH (07:59)
[2020-05-03] MEDS: ARIPiprazole 5 MG TAB PO SCH (07:59)
[2020-05-03] MEDS: ADVANCED PROBIOTIC 1250 MG CAPSULE PO SCH (08:00)
[2020-05-03] MEDS: CHOLECALCIFEROL 1,000 UNITS 25 MCG TAB PO SCH (08:00)
[2020-05-03 08:09] LABS: Hematocrit (blood only) 31.2 % (37-47); Hemoglobin 9.8 g/dL (12.0-16.0); Mean Corpuscular Hemoglobin 25.5 pg (25-34); Mean Corpuscular Hgb Conc 31.4 g/dL (32-36); Mean Platelet Volume 8.4 fL (7.4-10.4); Platelet Count 553 K/uL (130-400); RDW Coefficient of Variation 18.9 % (11.5-14.5); RDW Standard Deviation 55.1 fL (36.4-46.3); Red Blood Count 3.85 M/uL (4.2-5.4); White Blood Count 14.13 K/uL (4.8-10.8)
[2020-05-03] MEDS: INSULIN ASPART 100 UNITS/ML 3 ML PEN SC SCH ×4 (08:10→21:23)
[2020-05-03] MEDS: INSULIN GLARGINE SOLOSTAR 100 UNITS/ML 3 ML PEN SC SCH ×2 (08:11→21:22)
[2020-05-03 08:32] LABS: BUN Creatinine Ratio 11.5 (10-20); Calcium 9.4 mg/dl (8.5-10.1); Creatinine Clr Calc Pharmacy 41.6 ml/min; Est GFR (Non-African American) 26.7; Potassium 4.1 mmol/L (3.5-5.1)
[2020-05-03] MEDS ORDERED: CYANOCOBALAMIN 1000 MCG/ML VIAL IM SCH (09:00)
--- NOTE | 2020-05-03 10:31 | XRay Report ---
SINGLE VIEW CHEST CLINICAL HISTORY: Dyspnea. FINDINGS: An AP, portable, upright chest radiograph is compared to study dated 04/27/2020. The examin ation is degraded by portable technique, apical lordotic positioning, and patient rotation. The hea rt is top normal for projection noting atherosclerotic calcification of the thoracic aorta. There is mild bibasilar atelectasis. The lungs and pleural spaces are otherwise clear. No pneumothorax is seen . The skeletal structures are osteopenic. The left proximal humerus is absent. IMPRESSION: No active disease in the chest. ACT 112: Negative or not required by law. Electronically signed by: Tl Jolley M.D. 05/03/2020 10:30 AM
--- NOTE | 2020-05-03 10:33 | Hospitalist Progress Note ---
Date of Service May 03, 2020 Assessment & Plan (1) UTI (urinary tract infection): Continue ertapenem - urine growing klebsiella BC no growth, fugal culture ordered by urology Per urology - continue supportive care, maintain engel catheter at discharge (2) Leukocytosis: WBCs 14 today and trending up along with increasing delirium and flushed appearance Unclear etiology - CXR clear, will redraw blood cultures and urine culture. U/A with RBCS, WBCs, leuk esterase but no bacteria. Cdiff ordered Patient has a history of septic shoulder in the left. She does have some pain in her right shoulder but it's not overly impressive in presentation for a septic joint, however per patient's daughter her left shoulder sepsis was subtle in presentation. XR of the shoulder earlier in the stay showed chronic rotator cuff injury and degenerative changes but no acute abnormality. If workup remains unrevealing could consider MRI although at this point her kidney function would not allow for contrast. (3) Acute kidney injury: In setting of NSAID use (confirmed taking both meloxicam and naproxen). Hold NSAIDs and aspirin. DC fluids Creatinine continues to slowly trend downward, today 1.95 Possible UVJ obstruction related to chronic cystitis Renal US with improvement Consulted nephrology - repeat bmp one week after discharge and fax to [phone], follow up in the nephrology clinic in 2 weeks after dc (4) Anemia: Iron deficient Hgb stable around 9.5 Hold NSAIDs as above. Patient's baseline hgb appears to be around 10 so she is not far from her b aseline at present. Iron is low at 16, transferrin 139, ferritin 238 - initiated iron supplementation (5) Microscopic hematuria: UA with RBC positive since August, CT equivocal for right renal pelvis hemorrhage, current anemia and acute kidney injury. Repeat imaging with US showing improvement (6) Abnormal CT of the abdomen: As above for microscopic hematuria. (7) Right shoulder pain: XR right shoulder without obvious acute change but does show chronic rot ator cuff injury (8) GERD (gastroesophageal reflux disease): Continue ppi (9) T2DM (type 2 diabetes mellitus): HbA1C 8.3 Hold linagliptin and empagliflozin. Continue Lantus 10 units twice daily, NovoLog sliding scale ACHS, bsgs stable (10) History of MRSA infection: Contact precautions. (11) H/O recurrent urinary tract infection: Recommend not restarting Jardiance on discharge as this will significantly increase her risk of urinary tract infections. (12) DVT prophylaxis: SCDs. No chemical prophylaxis due hematuria/renal hemorrhage as above. Admission and Anticipated Discharge Date Admission Date: April 27, 2020 Subjective Ms. Hardy is flushed in appearance and oriented but frequently confused as we talk. She does not have any specific complaints other than feeling tingling "all over" ROS Constitutional: no chills, aches, sweats or fever Respiratory: no sob,cough, sputum, or wheezing Cardiac: no chest pain, palpitations, edema, orthopnea or lightheadedness GI: no abdominal pain, nausea, vomiting, diarrhea or constipation : no dysuria or hesitancy Extremities: no joint pain or weakness Skin: no rash All other systems reviewed and negative Physical Exam Physical Exam: General: no distress Eyes: normal inspection, PERLL Respiratory: chest non tender, clear to auscultation, normal breath sounds, no respiratory distress, no accessory muscle use Cardiac: regular rate and rhythm, no rub or gallop, no murmur, no edema, no jvd GI/: active bowel sounds, no abd pain or tenderness, soft, non distended Extremities: normal range of motion, normal strength, non tender Neuro/Psych: alert and oriented x 3 with confusion , normal mood and affect, no focal deficits Skin: flushed, dry, left groin skin fold with small open area but otherwise skin folds without evidence of infection Results & Data Results & Data ([facility]) Vital Signs (Past 12 Hours) Vital Signs Temp Pulse Resp BP Pulse Ox 05/03/20 07:14 36.8 C 93 H 18 127/70 92 05/02/20 23:24 36.9 C 89 18 115/68 92 PG Care Time/CCT Total # of Minutes Spent Total Time Spent with Patient: Total time spent is greater than 50% in coordination of care (as documented) at patient's floor/unit and/or counseling patient: Coding Level of Care Code 06533 Subseq Hosp Care Lvl 3 Diagnoses UTI (urinary tract infection) N39.0 Leukocytosis D72.829 Acute kidney injury N17.9 Anemia D64.9 Microscopic hematuria R31.[address] of the abdomen R93.5 Right shoulder pain M25.511 GERD (gastroesophageal reflux disease) K21.9 T2DM (type 2 diabetes mellitus) E11.9 History of MRSA infection Z86.14 H/O recurrent urinary tract infection Z87.440 DVT prophylaxis Z29.9
[2020-05-03 10:42] LABS: Appearance Urine Turbid (Clear); Bacteria Urine Automated Negative (Negative); Bilirubin Urine Negative (Negative); Blood Urine 3+ (Negative); Color Urine Yellow; Epithelial Cell Urine Auto >30 /lpf (0-5); Glucose Urine UA Trace (Negative); Ketones Urine Negative (Negative); Leukocyte Esterase Urine 3+ (Negative); Nitrite Urine Negative (Negative); Protein Urine 1+ (Negative); Urobilinogen Urine Negative (Negative); WBC Urine Automated >30 /hpf (0-5); pH Urine 6.5 (4.5-7.5)
[2020-05-03 11:03] LABS: Cast Urine Automated >30 /lpf (0-5); RBC Urine Automated >30 /hpf (0-4)
[2020-05-03] MEDS: ERTAPENEM SODIUM 1,000 MG in SODIUM CHLORIDE 0.9% 50 ML IV SCH (13:56)
[2020-05-03] MEDS: busPIRone 15 MG TAB PO SCH (17:07)
[2020-05-03] MEDS: ACETAMINOPHEN 325 MG TAB PO PRN (17:41)
[2020-05-03] MEDS: DOCUSATE SODIUM/SENNA 50/8.6MG TAB PO SCH (21:23)
[2020-05-04 06:05] LABS: Hematocrit (blood only) 31.3 % (37-47); Hemoglobin 9.7 g/dL (12.0-16.0); Mean Corpuscular Hemoglobin 25.4 pg (25-34); Mean Corpuscular Volume 81.9 fL (80-100); Mean Platelet Volume 8.7 fL (7.4-10.4); Platelet Count 596 K/uL (130-400); RDW Standard Deviation 55.3 fL (36.4-46.3); Red Blood Count 3.82 M/uL (4.2-5.4); White Blood Count 12.68 K/uL (4.8-10.8)
[2020-05-04 06:26] LABS: BUN Creatinine Ratio 11.8 (10-20); Calcium 9.1 mg/dl (8.5-10.1); Creatinine Clr Calc Pharmacy 38.1 ml/min; Est GFR (African American) 27.8; Potassium 3.7 mmol/L (3.5-5.1)
[2020-05-04] MEDS: FERROUS GLUCONATE 324 MG TAB PO SCH (09:04)
[2020-05-04] MEDS: ADVANCED PROBIOTIC 1250 MG CAPSULE PO SCH (09:04)
[2020-05-04] MEDS: ARIPiprazole 5 MG TAB PO SCH (09:04)
[2020-05-04] MEDS: CHOLECALCIFEROL 1,000 UNITS 25 MCG TAB PO SCH (09:05)
[2020-05-04] MEDS: PANTOprazole 40 MG TAB PO SCH (09:05)
[2020-05-04] MEDS: buPROPion SR 150 MG TABCR PO SCH (09:05)
[2020-05-04] MEDS: VITAMIN B COMPLEX TAB PO SCH (09:05)
[2020-05-04] MEDS: INSULIN ASPART 100 UNITS/ML 3 ML PEN SC SCH ×5 (09:06→22:34)
[2020-05-04] MEDS: INSULIN GLARGINE SOLOSTAR 100 UNITS/ML 3 ML PEN SC SCH ×2 (09:07→22:34)
--- NOTE | 2020-05-04 09:44 | Hospitalist Progress Note ---
Date of Service May 04, 2020 Assessment & Plan (1) UTI (urinary tract infection): Klebsiella UTI * Continue ertapenem (on day 7 of treatment) * Fungal with * BC no growth, fungal culture ordered by urology * Per urology - continue supportive care, maintain Engel catheter for now -- will discuss about discontinuing * ID consulted -- rec to discontinue Ertapenem as patient received 7 days total IV (not renally dosed) as this could have contributed to worsened confusion since Monday. Rec not treating yeast (2) Leukocytosis: * Trending down, WBC 12.6k * Increased delirium possibly related to ertapenem as above * Initially trended down, then up. * Repeat cultures were drawn, see above * Of note, Patient has a history of septic shoulder in the left. She does have some pain in her right shoulder but it's not overly impressive in presentation for a septic joint, however per patient's daughter her left shoulder sepsis was subtle in presentation. XR of the shoulder earlier in the stay showed chronic rotator cuff injury and degenerative changes but no acute abnormality. If workup remains unrevealing could consider MRI although at this point her kidney function would not allow for contrast. (3) Acute kidney injury: * In setting of NSAID use (confirmed taking both meloxicam and naproxen). Hold NSAIDs and aspirin. Was also on Jardiance which can cause lens inspector to rise * IVF had been discontinued as Cr trended down and patient had good oral intake --> restarted NS @ 80cc/hr for now * Cr bumped to 2.13 * Urology reconsulted * US Renal with improvement of fullness L renal pelvis * NPO after midnight * Consulted nephrology - repeat bmp one week after discharge and fax to [phone], follow up in the nephrology clinic in 2 weeks after dc (4) Anemia: * Iron deficient -- Iron is low at 16, transferrin 139, ferritin 238 - initiated iron supplementation * H/h 9.7/31.3 * CBC in AM * Unclear why she is iron deficient-need to inquire about EGD and colonoscopy history. Could be from microscopic hematuria (5) Microscopic hematuria: * UA with RBC positive for at least 1 year, CT equivocal for right renal pelvis hemorrhage, current anemia and acute kidney injury. * Repeat imaging with US showing improvement * Okay to restart home aspirin * Needs cystoscopy if not performed previously and urine cytology (6) Abnormal CT of the abdomen: * As above for microscopic hematuria. (7) Right shoulder pain: * XR right shoulder without obvious acute change but does show chronic rotator cuff injury (8) GERD (gastroesophageal reflux disease): * not on PPI at home and with renal failure here--> dc PPI (9) T2DM (type 2 diabetes mellitus): * HbA1C 8.3 * Hold linagliptin and empagliflozin and would not restart Jardiance given elevated lens inspector and UTI. * Continue Lantus 10 units twice daily, NovoLog sliding scale ACHS * BSGs stable (10) History of MRSA infection: * Contact precautions -- repeat MRSA nasal swab per daughter request (11) H/O recurrent urinary tract infection: * Recommend not restarting Jardiance on discharge as this will significantly increase her risk of urinary tract infections. (12) Depression with anxiety: Continue home medications except noted that bupropion is only prescribed 300 mg of the extended release once daily, not 450 mg-this dosing was changed here Continue home buspirone Continue home Abilify (13) Dyslipidemia: Okay to restart home simvastatin now that she is no longer on daptomycin (14) DVT prophylaxis: * SCDs. * No chemical prophylaxis due hematuria/renal hemorrhage as above Dispo: NPO after midnight for possible intervention Continue to monitor for improvement of cognition since d/c Ertapenem. Patient resident at [facility]. CM following Admission and Anticipated Discharge Date Admission Date: April 27, 2020 Supervising Physician Co-Signing Physician Notes PA Supervision Note: I did not personally see or examine the patient today, but I verified all del rosario points of RUIZ Mendoza's assessment and plan with the following exceptions/additions: Notations made as above Subjective Patient evaluated at bedside with daughter present. Feeling well and wanting to go home, but with increased confusion. Chronic burning with urinary symptoms and had been on D-mannose per PCP. Discussed with urology this morning and repeating imaging with possible need for stent. Also discussed ID consultation. Daughter would like checked for MRSA as she has history of this in the past and ended up in [facility] after septic shoulder and other daughter not able to take care of. Daughter at bedside with concerns regarding being here for procedure as well as return to [facility] with positive cases. Denies fever, chills, chest pain, shortness of breath, abdominal pain, nausea, vomiting or diarrhea. Review of Systems Review of Systems: All systems reviewed & are unremarkable except as noted in HPI & below Physical Exam Constitutional: WD/WN, vitals as above no acute distress Eyes: + anicteric sclerae and PERRL Neck: normal visual inspection Respiratory: normal respiratory effort, lungs clear to auscultation Auscultation: + diminished lung sounds Cardiovascular: RRR, no murmur, no edema Gastrointestinal (Abdomen): normal bowel sounds, soft, nontender, no hepatosplenomegaly Musculoskeletal: no cyanosis or clubbing, extremities motor strength 5/5 Skin: warm, dry Neurologic: moves all extremities and awake Psychiatric: alert, intermittent periods of confusion Genitourinary: engel draining cloudy yellow urine Lymphatic: no cervical or axillary lymphadenopathy Results & Data Results & Data ([facility]) Vital Signs (Past 12 Hours) Vital Signs Temp Pulse Resp BP Pulse Ox 05/04/20 07:53 37.0 C 92 H 18 113/72 93 05/03/20 23:23 36.8 C 93 H 18 109/72 93 Laboratory Results 05/04/20 05/04/20 05/04/20 Range/Units 08:18 05:49 05:49 WBC 12.68 H (4.8-10.8) K/uL RBC 3.82 L (4.2-5.4) M/uL Hgb 9.7 L (12.0-16.0) g/dL Hct 31.3 L (37-47) % MCV 81.9 (80-100) fL MCH 25.4 (25-34) pg MCHC 31.0 L (32-36) g/dL RDW Std Deviation 55.3 H (36.4-46.3) fL RDW Coeff of Katina 19.0 H (11.5-14.5) % Plt Count 596 H (130-400) K/uL MPV 8.7 (7.4-10.4) fL Sodium 136 (136-145) mmol/L Potassium 3.7 (3.5-5.1) mmol/L Chloride 104 (98-107) mmol/L Carbon Dioxide 26 (21-32) mmol/L Anion Gap 6.0 (3-11) BUN 25 H (7-18) mg/dl Creatinine 2.13 H (0.6-1.2) mg/dl Est Cr Clr Drug Dosing 38.1 ml/min Est GFR ( Amer) 27.8 Est GFR (Non-Af Amer) 24.0 BUN/Creatinine Ratio 11.8 (10-20) Glucose 112 H (70-99) mg/dl POC Glucose 121 H (70-99) mg/dl Calcium 9.1 (8.5-10.1) mg/dl Urine Color Urine Appearance (Clear) Urine pH (4.5-7.5) Ur Specific Renner (1.000-1.030) Urine Protein (Negative) Urine Glucose (UA) (Negative) Urine Ketones (Negative) Urine Blood (Negative) Urine Nitrite (Negative) Urine Bilirubin (Negative) Urine Urobilinogen (Negative) Ur Leukocyte Esterase (Negative) Urine WBC (Auto) (0-5) /hpf Urine RBC (Auto) (0-4) /hpf U Hyaline Cast (Auto) (0-5) /lpf U Epithel Cells (Auto) (0-5) /lpf Urine Bacteria (Auto) (Negative) Ur Renal Epithelial Cell (0-5) /lpf Urine Yeast 05/03/20 05/03/20 05/03/20 Range/Units 20:02 16:28 11:35 WBC (4.8-10.8) K/uL RBC (4.2-5.4) M/uL Hgb (12.0-16.0) g/dL Hct (37-47) % MCV (80-100) fL MCH (25-34) pg MCHC (32-36) g/dL RDW Std Deviation (36.4-46.3) fL RDW Coeff of Katina (11.5-14.5) % Plt Count (130-400) K/uL MPV (7.4-10.4) fL Sodium (136-145) mmol/L Potassium (3.5-5.1) mmol/L Chloride (98-107) mmol/L Carbon Dioxide (21-32) mmol/L Anion Gap (3-11) BUN (7-18) mg/dl Creatinine (0.6-1.2) mg/dl Est Cr Clr Drug Dosing ml/min Est GFR ( Amer) Est GFR (Non-Af Amer) BUN/Creatinine Ratio (10-20) Glucose (70-99) mg/dl POC Glucose 113 H 100 H 80 (70-99) mg/dl Calcium (8.5-10.1) mg/dl Urine Color Urine Appearance (Clear) Urine pH (4.5-7.5) Ur Specific Renner (1.000-1.030) Urine Protein (Negative) Urine Glucose (UA) (Negative) Urine Ketones (Negative) Urine Blood (Negative) Urine Nitrite (Negative) Urine Bilirubin (Negative) Urine Urobilinogen (Negative) Ur Leukocyte Esterase (Negative) Urine WBC (Auto) (0-5) /hpf Urine RBC (Auto) (0-4) /hpf U Hyaline Cast (Auto) (0-5) /lpf U Epithel Cells (Auto) (0-5) /lpf Urine Bacteria (Auto) (Negative) Ur Renal Epithelial Cell (0-5) /lpf Urine Yeast 05/03/20 Range/Units 10:15 WBC (4.8-10.8) K/uL RBC (4.2-5.4) M/uL Hgb (12.0-16.0) g/dL Hct (37-47) % MCV (80-100) fL MCH (25-34) pg MCHC (32-36) g/dL RDW Std Deviation (36.4-46.3) fL RDW Coeff of Katina (11.5-14.5) % Plt Count (130-400) K/uL MPV (7.4-10.4) fL Sodium (136-145) mmol/L Potassium (3.5-5.1) mmol/L Chloride (98-107) mmol/L Carbon Dioxide (21-32) mmol/L Anion Gap (3-11) BUN (7-18) mg/dl Creatinine (0.6-1.2) mg/dl Est Cr Clr Drug Dosing ml/min Est GFR ( Amer) Est GFR (Non-Af Amer) BUN/Creatinine Ratio (10-20) Glucose (70-99) mg/dl POC Glucose (70-99) mg/dl Calcium (8.5-10.1) mg/dl Urine Color Yellow Urine Appearance Turbid A (Clear) Urine pH 6.5 (4.5-7.5) Ur Specific Renner 1.010 (1.000-1.030) Urine Protein 1+ H (Negative) Urine Glucose (UA) Trace H (Negative) Urine Ketones Negative (Negative) Urine Blood 3+ H (Negative) Urine Nitrite Negative (Negative) Urine Bilirubin Negative (Negative) Urine Urobilinogen Negative (Negative) Ur Leukocyte Esterase 3+ H (Negative) Urine WBC (Auto) >30 H (0-5) /hpf Urine RBC (Auto) >30 H (0-4) /hpf U Hyaline Cast (Auto) >30 H (0-5) /lpf U Epithel Cells (Auto) >30 H (0-5) /lpf Urine Bacteria (Auto) Negative (Negative) Ur Renal Epithelial Cell 5-10 H (0-5) /lpf Urine Yeast Not Reportable Diagnostic Findings RENAL ULTRASOUND IMPRESSION: 1. No right hydronephrosis. 2. Improvement in the fullness within the left renal pelvis. 3. Bladder is decompressed by Engel catheter. PG Care Time/CCT Total # of Minutes Spent Total Time Spent with Patient: Total time spent is greater than 50% in coordination of care (as documented) at patient's floor/unit and/or counseling patient: Coding Level of Care Code 38418 Subseq Hosp Care Lvl 2 Diagnoses UTI (urinary tract infection) N39.0 Leukocytosis D72.829 Acute kidney injury N17.9 Anemia D64.9 Microscopic hematuria R31.[address] of the abdomen R93.5 Right shoulder pain M25.511 GERD (gastroesophageal reflux disease) K21.9 T2DM (type 2 diabetes mellitus) E11.9 History of MRSA infection Z86.14 H/O recurrent urinary tract infection Z87.440 Depression with anxiety F41.8 Dyslipidemia E78.5 DVT prophylaxis Z29.9
--- NOTE | 2020-05-04 11:53 | Urology Progress Note ---
Date of Service May 04, 2020 Assessment & Plan (1) Microscopic hematuria: (2) Abnormal CT of the abdomen: (3) UTI (urinary tract infection): 65 year-old female patient admitted with acute kidney injury, leukocytosis, and urinary tract infection. - Plan of care reviewed with Dr. Toney. - Patient afebrile, white count improving. - Increase in creatinine from 1.95 to 2.13. - Urine culture positive for Klebsiella, currently on Ertapenem. - Preliminary blood cultures negative after 24 hours. - Given rise in creatinine, recommend repeating renal ultrasound to assess degree of hydronephrosis. - Maintain engel catheter for now. - Continue with supportive care and plan to make NPO after midnight. - Reconsider intervention with bilateral stent placement if she fails to improve with antibiotics and supportive care. - Continue to follow while inpatient. Admission and Anticipated Discharge Date Admission Date: April 27, 2020 Subjective Patient examined, daughter at bedside. She is alert and answers questions appropriately. Does have periods of confusion. Denies abdominal/flank pain. Denies nausea or vomiting. Denies fevers or chills. Engel catheter intact, draining cloudy yellow drainage with some sediment. Chart review: Afebrile Wbc 12.68 (previously 14.13) Hgb 9.7 Creatinine 2.13 (previously 1.95) Urine culture 04/27 positive for Klebsiella, currently on IV Ertapenem. Repeat urine culture 05/01 with yeast, not sonja. Preliminary blood culture no growth after 24 hours. Denies additional concerns. Review of Systems Constitutional: as per Subjective / HPI; no fever and no chills Gastrointestinal: as per Subjective / HPI; no nausea and no vomiting Genitourinary: as per Subjective / HPI Neurologic: as per Subjective / HPI Physical Exam Constitutional: well developed and well nourished; no acute distress and not ill appearing Respiratory: normal respiratory effort and able to speak in complete sentences; no respiratory distress and no audible wheezes Gastrointestinal (Abdomen): Inspection/Auscultation: abdomen normal to inspection; abdomen not distended Percussion/Palpation: abdomen soft; abdomen nontender and no guarding Psychiatric: Orientation: alert, oriented x 3 and cooperative Affect: euthymic affect Does answer orientation questions appropriately however appears confused at times. Genitourinary: Engel catheter draining cloudy yellow urine with sediment. Results & Data ([facility]) Vital Signs (Past 12 Hours) Vital Signs Temp Pulse Resp BP Pulse Ox 05/04/20 07:53 37.0 C 92 H 18 113/72 93 PG Care Time/CCT Total # of Minutes Spent Total Time Spent with Patient: Total time spent is greater than 50% in coordination of care (as documented) at patient's floor/unit and/or counseling patient: Coding Level of Care Code 61112 Subseq Hosp Care Lvl 2 Diagnoses Microscopic hematuria R31.[address] of the abdomen R93.5 UTI (urinary tract infection) N39.0
[2020-05-04 12:33] LABS: Basophils # (auto) 0.07 K/uL (0-0.2); Basophils % (auto) 0.6 %; Eosinophils # (auto) 0.35 K/uL (0-0.5); Eosinophils % (auto) 2.8 %; Immature Granulocytes # (auto) 0.07 K/uL (0.00-0.02); Immature Granulocytes % (auto) 0.6 %; Lymphocytes # (auto) 2.06 K/uL (1.2-3.4); Lymphocytes % (auto) 16.2 %; Monocytes # (auto) 0.87 K/uL (0.11-0.59); Monocytes % (auto) 6.9 %; Neutrophils # (auto) 9.26 K/uL (1.4-6.5); Neutrophils % (auto) 72.9 %
[2020-05-04 12:58] LABS: Rouleaux 1+
--- NOTE | 2020-05-04 13:51 | Ultrasound Report ---
RENAL ULTRASOUND HISTORY: Elevated creatinine, hydronephrosis COMPARISON: Renal ultrasound 04/30/2020. FINDINGS: Right kidney: 10.9 cm. No hydronephrosis. Normal corticomedullary differentiation and cortical thickn ess. Left kidney: 11.1 cm. Fullness within the left renal pelvis. No hydronephrosis. This has improved. No rmal corticomedullary differentiation and cortical thickness. Bladder: Fallon catheter decompressing the bladder. IMPRESSION: 1. No right hydronephrosis. 2. Improvement in the fullness within the left renal pelvis. 3. Bladder is decompressed by Fallon catheter. ACT 112: Negative or not required by law. Electronically signed by: Mak Monteiro M.D. 05/04/2020 1:50 PM
[2020-05-04] MEDS: ERTAPENEM SODIUM 1,000 MG in SODIUM CHLORIDE 0.9% 50 ML IV SCH (13:54)
[2020-05-04] MEDS: busPIRone 15 MG TAB PO SCH (18:36)
[2020-05-04] MEDS: SODIUM CHLORIDE 0.9% 1000ML 1,000 ML IV SCH (18:37)
[2020-05-04] MEDS: DOCUSATE SODIUM/SENNA 50/8.6MG TAB PO SCH (22:03)
[2020-05-05] MEDS ORDERED: Nursing to Pharmacy Communication SCH (00:45)
[2020-05-05 05:52] LABS: Basophils # (auto) 0.06 K/uL (0-0.2); Basophils % (auto) 0.5 %; Eosinophils # (auto) 0.31 K/uL (0-0.5); Eosinophils % (auto) 2.5 %; Hematocrit (blood only) 30.3 % (37-47); Hemoglobin 9.4 g/dL (12.0-16.0); Immature Granulocytes # (auto) 0.03 K/uL (0.00-0.02); Immature Granulocytes % (auto) 0.2 %; Lymphocytes # (auto) 2.78 K/uL (1.2-3.4); Lymphocytes % (auto) 22.1 %; Mean Corpuscular Hemoglobin 25.6 pg (25-34); Mean Corpuscular Volume 82.6 fL (80-100); Mean Platelet Volume 8.7 fL (7.4-10.4); Monocytes # (auto) 0.79 K/uL (0.11-0.59); Monocytes % (auto) 6.3 %; Neutrophils # (auto) 8.61 K/uL (1.4-6.5); Neutrophils % (auto) 68.4 %; Platelet Count 619 K/uL (130-400); RDW Coefficient of Variation 19.3 % (11.5-14.5); RDW Standard Deviation 56.1 fL (36.4-46.3); Red Blood Count 3.67 M/uL (4.2-5.4); White Blood Count 12.58 K/uL (4.8-10.8)
[2020-05-05] MEDS: SODIUM CHLORIDE 0.9% 1000ML 1,000 ML IV SCH ×3 (05:53→22:10)
[2020-05-05] MEDS: INSULIN ASPART 100 UNITS/ML 3 ML PEN SC SCH ×3 (05:53→18:37)
[2020-05-05 06:18] LABS: Albumin Level 2.2 gm/dl (3.4-5.0); BUN Creatinine Ratio 10.6 (10-20); Calcium 8.8 mg/dl (8.5-10.1); Creatinine Clr Calc Pharmacy 36.8 ml/min; Est GFR (African American) 26.8; Est GFR (Non-African American) 23.1; Potassium 3.6 mmol/L (3.5-5.1)
[2020-05-05 06:21] LABS: Albumin Globulin Ratio 0.4 (0.9-2); Bilirubin,Total 0.7 mg/dl (0.2-1); Globulin 5.8 gm/dl (2.5-4.0)
--- NOTE | 2020-05-05 07:50 | Urology Progress Note ---
Date of Service May 05, 2020 Assessment & Plan (1) Microscopic hematuria: (2) Abnormal CT of the abdomen: (3) Acute kidney injury: 65 year-old female patient admitted with acute kidney injury, bilateral hydronephrosis, leukocytosis, and urinary tract infection. - Plan of care reviewed with Dr. Toney. - Patient afebrile, white count remains elevated with mild improvement. - Increase in creatinine from 2.13 to 2.20. - Urine culture positive for Klebsiella, Ertapenem completed yesterday as this was felt to contribute to confusion. - Preliminary blood cultures negative after 48 hours. - Repeat renal ultrasound with improvement in hydronephrosis, maintain engel catheter for now. - As patient's creatinine is rising and she is not clinically improving as expected, will proceed to OR for cystoscopy, bilateral retrograde pyelogram, bilateral stent placement, possible bladder biopsy/fulguration. - Risks and benefits of procedure to be discussed by Dr. Toney. - Chest x-ray and EKG in chart. OR notified. Plan to cover with renal dose of IV Ciprofloxacin preoperatively. - Patient's daughter, primary contact, updated at bedside. - Communicated with hospital team regarding patient status, recommend neurology evaluation prior to surgical intervention if possible. - Continue to follow closely. Attending Note: Risks and benefits discussed at length for procedure. These include bleeding, infection, injury to surrounding tissues or organs, and risks associated with anesthesia. Patient states understanding and agrees to proceed. Will sign consent and schedule. Plan for cystoscopy with possible stents bilateral and biopsy Admission and Anticipated Discharge Date Admission Date: April 27, 2020 Subjective Patient examined, appears restless. Alert to person only this morning. She reports she is having some discomfort in her abdomen. Denies nausea or vomiting. Denies fevers or chills. Engel catheter intact, draining cloudy yellow drainage with some sediment. Chart review: Afebrile Wbc 12.58 (previously 12.68) Hgb 9.4 Creatinine 2.20 (previously 2.13) Urine culture 04/27 positive for Klebsiella, Ertapenem completed after 7 day course, ID consult in place. Repeat urine culture 05/01 with yeast, not sonja. Repeat urine culture prelim pin-point growth, reincubating. Preliminary blood culture no growth after 48 hours. Repeat renal ultrasound 05/04 - IMPRESSION: 1. No right hydronephrosis. 2. Improvement in the fullness within the left renal pelvis. 3. Bladder is decompressed by Engel catheter. Denies additional concerns. Review of Systems Constitutional: as per Subjective / HPI; no fever and no chills Gastrointestinal: as per Subjective / HPI; no nausea and no vomiting Genitourinary: as per Subjective / HPI Neurologic: as per Subjective / HPI Physical Exam Constitutional: cooperative; no acute distress and not ill appearing Appears restless Respiratory: normal respiratory effort and able to speak in complete sentences; no respiratory distress and no audible wheezes Gastrointestinal (Abdomen): Inspection/Auscultation: abdomen normal to inspection; abdomen not distended Percussion/Palpation: abdomen soft; abdomen nontender and no guarding Skin: No visible rashes, lesions, or wounds. Psychiatric: Orientation: alert, oriented to person and cooperative; + not oriented to place and + not oriented to time Genitourinary: Engel catheter intact draining cloudy yellow urine with sediment. Results & Data ([facility]) Vital Signs (Past 12 Hours) Vital Signs Temp Pulse Resp BP Pulse Ox 05/04/20 23:57 36.8 C 92 H 20 113/62 92 PG Care Time/CCT Total # of Minutes Spent Total Time Spent with Patient: Total time spent is greater than 50% in coordination of care (as documented) at patient's floor/unit and/or counseling patient: Coding Level of Care Code 18303 Subseq Hosp Care Lvl 2 Diagnoses Microscopic hematuria R31.[address] of the abdomen R93.5 Acute kidney injury N17.9
[2020-05-05] MEDS ORDERED: ASPIRIN 81 MG ECTAB PO SCH (09:00)
--- NOTE | 2020-05-05 09:40 | CT Scan Report ---
CT head/brain wo con CLINICAL HISTORY: Acute change in mental status. Confusion. COMPARISON STUDY: MRI of the brain dated 04/29/2020 TECHNIQUE: Axial CT of the brain is performed from the vertex to the skull base. IV contrast was not administered for this examination. A dose lowering technique was utilized adhering to the principles of ALARA. CT DOSE: 1375.95 mGy.cm FINDINGS: No intra or extra-axial mass lesions are visualized. There is no CT evidence of acute cortical infarc tion. There is no evidence of midline shift. There is no acute hemorrhage. No calvarial fractures ar e visualized. There are patchy white matter hypodensities likely on a small vessel basis. There is no evidence of pathologic ventricular dilatation. There is no evidence of acute sinusitis. There is hyperostosis frontalis interna. IMPRESSION: No acute intracranial findings ACT 112: Negative or not required by law. Electronically signed by: Denton Cerda M.D. 05/05/2020 9:39 AM
[2020-05-05 09:51] LABS: Base Excess ABG -0.7 mEq/L (-9-1.8); HCO3 ABG 23 mmol/L (19-24); PCO2 ABG 36 mmHg (35-46); PO2 ABG 77 mmHg (80-95); pH ABG 7.43 (7.35-7.45)
[2020-05-05 09:52] LABS: Allen Test Pos (Pos)
[2020-05-05] MEDS: INSULIN GLARGINE SOLOSTAR 100 UNITS/ML 3 ML PEN SC SCH ×2 (10:39→21:41)
[2020-05-05] MEDS ORDERED: CIPROFLOXACIN / D5W 200 MG/100 ML BAG IV STA (10:43)
[2020-05-05] MEDS: ACETAMINOPHEN 325 MG TAB PO PRN (10:45)
[2020-05-05] MEDS: ADVANCED PROBIOTIC 1250 MG CAPSULE PO SCH (10:48)
[2020-05-05] MEDS: CHOLECALCIFEROL 1,000 UNITS 25 MCG TAB PO SCH (10:48)
[2020-05-05] MEDS: VITAMIN B COMPLEX TAB PO SCH (10:48)
[2020-05-05] MEDS: ARIPiprazole 5 MG TAB PO SCH (10:50)
[2020-05-05] MEDS: FERROUS GLUCONATE 324 MG TAB PO SCH (10:51)
[2020-05-05] MEDS: buPROPion XL 300 MG TABCR PO SCH (10:56)
--- NOTE | 2020-05-05 12:50 | Hospitalist Progress Note ---
Date of Service May 05, 2020 Assessment & Plan (1) Acute encephalopathy: Worsening confusion, lip smacking/tongue movements appearing as toxic encephalopathy. Treat for Klebsiella UTI with Ertapenem x 7 days (completed yesterday)--> Of note, patient had been on 1,000mg daily Ertapenem and CrCl only slightly above cutoff for reduced dosing as noted by ID provider during video conference yesterday Very likely could be side effects of ertapenem which has since been discontinued * CT Head w/o acute findings * Neurology consulted -- appreciate rec's * --> Ok to proceed for b/l stents today * --> rec obtaining LP in AM to see if ertapenem washout helps (last dose yesterday) * Added mag to labs . * Neurology to continue to make recommendations pending clinical course * ABG with Po2 low, pH normal. No white count. No further fevers * Continue to monitor * Hold home Abilify (2) UTI (urinary tract infection): Klebsiella UTI * Completed 7-day course of ertapenem * BC no growth, fungal culture ordered by urology (not to treat per ID) * Per urology - continue supportive care, maintain Engel catheter for now -- will discuss about discontinuing * ID consulted -- rec to discontinue Ertapenem as patient received 7 days total IV (not renally dosed) as this could have contributed to worsened confusion since Monday. Rec not treating yeast * NPO for OR today with Dr. Toney for b/l stents given continued rise in Cr (3) Leukocytosis: * WBC essentially unchanged and also with worsening thrombocytosis-could be reactive to anemia versus infection * Increased delirium possibly related to ertapenem as above * Initially trended down, then up. * Repeat cultures were drawn, see above * Of note, Patient has a history of septic shoulder in the left. She does have some pain in her right shoulder but it's not overly impressive in presentation for a septic joint, however per patient's daughter her left shoulder sepsis was subtle in presentation. XR of the shoulder earlier in the stay showed chronic rotator cuff injury and degenerative changes but no acute abnormality. If workup remains unrevealing could consider MRI although at this point her kidney function would not allow for contrast. (4) Acute kidney injury: * In setting of NSAID use (confirmed taking both meloxicam and naproxen). Hold NSAIDs and aspirin. 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 * IVF had been discontinued as Cr trended down and patient had good oral intake --> restarted NS @ 80cc/hr for now * Cr continues to be elevated at 2.2 * Urology reconsulted * US Renal with improvement of fullness L renal pelvis * NPO for OR today for stents as above * Consulted nephrology - repeat bmp one week after discharge and fax to [phone], follow up in the nephrology clinic in 2 weeks after dc (5) Anemia: * Iron deficient -- Iron is low at 16, transferrin 139, ferritin 238 - initiated iron supplementation orally and could consider giving IV iron while hospitalized * H/h 9.4/30.3 * CBC in AM * Unclear why she is iron deficient-need to inquire about EGD and colonoscopy history. Could be from microscopic hematuria. Will also obtain fecal occult (6) Microscopic hematuria: * UA with RBC positive for at least 1 year, CT equivocal for right renal pelvis hemorrhage, current anemia and acute kidney injury. * Repeat imaging with US showing improvement * Okay to restart home aspirin - will hold for LP in AM * Needs cystoscopy if not performed previously and urine cytology (7) Abnormal CT of the abdomen: * As above for microscopic hematuria. 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 * Continue Lantus 10 units twice daily, NovoLog sliding scale ACHS * BSGs stable (11) History of MRSA infection: * Contact precautions -- repeat MRSA nasal swab per daughter request, + (12) H/O recurrent urinary tract infection: * Recommend not restarting Jardiance on discharge as this will significantly increase her risk of urinary tract infections. (13) Depression with anxiety: * Continue home medications except noted that bupropion is only prescribed 300 mg of the extended release once daily, not 450 mg-this dosing was changed here * Continue home buspirone --> changed to 5mg daily as she had been on outpatient * Holding Abilify d/t above (14) Dyslipidemia: * Resumed home simvastatin now as no longer on daptomycin (15) DVT prophylaxis: * SCDs. * No chemical prophylaxis due hematuria/renal hemorrhage as above Dispo: Patient resident at [facility]. CM following (requested med rec from [facility] as we do not have and patient/daughter unable to provide complete list) OR today with Urology for b/l stents Plan for LP in AM with radiology -- already discussed and will be able to do in AM Continue to monitor for improvement of cognition since d/c Ertapenem. Admission and Anticipated Discharge Date Admission Date: April 27, 2020 Supervising Physician Co-Signing Physician Notes PA Supervision Note: I did not personally see or examine the patient today, but I verified all del rosario points of RUIZ Mendoza's assessment and plan with the following exceptions/additions: Notations made as above Subjective Patient with increased confusion this morning, tongue rolling, and intially only responsive to painful stimuli. Patient became very upset when reviewing ROS and felt as if something was stuck in the back of her mouth. Very fatigued and weak. Itchy today. Lower abdomen with some mild discomfort. Daughter at bedside to show text messages very clear and meaningful and then not making any sense. Patient demonstrated frustration with word finding and being able to be understood. Discussed Urology wanting to move forward with stent placement given increase in creatinine - daughter in agreement. Also discussed getting Neurology on board and obtainin stat CT to r/o acute event, which was negative. MRI on admission without acute findings as well. Denied fever, chills, chest pain, shortness of breath, n/v but really unable to voice much complaints and is worried about getting home. Making odd comments about floppy pillow and getting something from over at the sink. PT unable to work with patient as she is wheelchair bound and unable to participate currently. Went back to speak with patient and daughter in [facility] to discuss obtaining LP tomorrow to see if as Ertapenem is getting out of her system that this may improve. May be complicated by anesthesia for OR today with regards to confusion. Review of Systems Review of Systems: All systems reviewed & are unremarkable except as noted in HPI & below and Unobtainable due to cognitive status Physical Exam Constitutional: WD/WN, vitals as above + ill appearing and + obese; no acute distress Eyes: + anicteric sclerae, PERRL and + nystagmus ENMT: lip smacking with tardive dyskinesia type movements that wax and wane Neck: normal visual inspection Respiratory: normal respiratory effort, lungs clear to auscultation Auscultation: + diminished lung sounds Cardiovascular: RRR, no murmur, no edema Gastrointestinal (Abdomen): normal bowel sounds, soft, nontender, no hepatosplenomegaly Musculoskeletal: Head/Neck/Chest: head atraumatic and neck supple Skin: warm, dry Neurologic: moves all extremities and awake action tremor b/l (new) twitching and myyoclonic jerking UE R<L Psychiatric: Orientation: alert and oriented to person; + not oriented to place and + not oriented to time Genitourinary: engel draining cloudy yellow urine Lymphatic: no cervical or axillary lymphadenopathy Results & Data Results & Data ([facility]) Vital Signs (Past 12 Hours) Vital Signs Pulse Resp BP Pulse Ox 05/05/20 09:00 91 H 18 115/71 95 Laboratory Results 05/05/20 05/05/20 05/05/20 Range/Units 12:28 09:41 05:51 WBC (4.8-10.8) K/uL RBC (4.2-5.4) M/uL Hgb (12.0-16.0) g/dL Hct (37-47) % MCV (80-100) fL MCH (25-34) pg MCHC (32-36) g/dL RDW Std Deviation (36.4-46.3) fL RDW Coeff of Katina (11.5-14.5) % Plt Count (130-400) K/uL MPV (7.4-10.4) fL Immature Gran % (Auto) % Neut % (Auto) % Lymph % (Auto) % [place] % (Auto) % Eos % (Auto) % Baso % (Auto) % Neut # (Auto) (1.4-6.5) K/uL Lymph # (Auto) (1.2-3.4) K/uL [place] # (Auto) (0.11-0.59) K/uL Eos # (Auto) (0-0.5) K/uL Baso # (Auto) (0-0.2) K/uL Immature Gran # (Auto) (0.00-0.02) K/uL Rouleaux ABG pH 7.43 (7.35-7.45) ABG pCO2 36 (35-46) mmHg ABG pO2 77 L (80-95) mmHg ABG HCO3 23 (19-24) mmol/L ABG O2 Saturation 95.0 (90-95) % ABG Base Excess -0.7 (-9-1.8) mEq/L Yehuda Test Pos (Pos) Barometric Pressure 735.2 mm/Hg Oxygen Given 2 Sodium (136-145) mmol/L Potassium (3.5-5.1) mmol/L Chloride (98-107) mmol/L Carbon Dioxide (21-32) mmol/L Anion Gap (3-11) BUN (7-18) mg/dl Creatinine (0.6-1.2) mg/dl Est Cr Clr Drug Dosing ml/min Est GFR ( Amer) Est GFR (Non-Af Amer) BUN/Creatinine Ratio (10-20) Glucose (70-99) mg/dl POC Glucose 96 109 H (70-99) mg/dl Calcium (8.5-10.1) mg/dl Total Bilirubin (0.2-1) mg/dl AST (15-37) U/L ALT (12-78) U/L Alkaline Phosphatase (45-117) U/L Total Protein (6.4-8.2) gm/dl Albumin (3.4-5.0) gm/dl Globulin (2.5-4.0) gm/dl Albumin/Globulin Ratio (0.9-2) Nasal Screen MRSA (PCR) (Negative) 05/05/20 05/05/20 05/04/20 Range/Units 05:22 05:22 20:58 WBC 12.58 H (4.8-10.8) K/uL RBC 3.67 L (4.2-5.4) M/uL Hgb 9.4 L (12.0-16.0) g/dL Hct 30.3 L (37-47) % MCV 82.6 (80-100) fL MCH 25.6 (25-34) pg MCHC 31.0 L (32-36) g/dL RDW Std Deviation 56.1 H (36.4-46.3) fL RDW Coeff of Katina 19.3 H (11.5-14.5) % Plt Count 619 H (130-400) K/uL MPV 8.7 (7.4-10.4) fL Immature Gran % (Auto) 0.2 % Neut % (Auto) 68.4 % Lymph % (Auto) 22.1 % [place] % (Auto) 6.3 % Eos % (Auto) 2.5 % Baso % (Auto) 0.5 % Neut # (Auto) 8.61 H (1.4-6.5) K/uL Lymph # (Auto) 2.78 (1.2-3.4) K/uL [place] # (Auto) 0.79 H (0.11-0.59) K/uL Eos # (Auto) 0.31 (0-0.5) K/uL Baso # (Auto) 0.06 (0-0.2) K/uL Immature Gran # (Auto) 0.03 H (0.00-0.02) K/uL Rouleaux ABG pH (7.35-7.45) ABG pCO2 (35-46) mmHg ABG pO2 (80-95) mmHg ABG HCO3 (19-24) mmol/L ABG O2 Saturation (90-95) % ABG Base Excess (-9-1.8) mEq/L Yehuda Test (Pos) Barometric Pressure mm/Hg Oxygen Given Sodium 139 (136-145) mmol/L Potassium 3.6 (3.5-5.1) mmol/L Chloride 108 H (98-107) mmol/L Carbon Dioxide 24 (21-32) mmol/L Anion Gap 7.0 (3-11) BUN 23 H (7-18) mg/dl Creatinine 2.20 H (0.6-1.2) mg/dl Est Cr Clr Drug Dosing 36.8 ml/min Est GFR ( Amer) 26.8 Est GFR (Non-Af Amer) 23.1 BUN/Creatinine Ratio 10.6 (10-20) Glucose 106 H (70-99) mg/dl POC Glucose 89 (70-99) mg/dl Calcium 8.8 (8.5-10.1) mg/dl Total Bilirubin 0.7 (0.2-1) mg/dl AST 46 H (15-37) U/L ALT 34 (12-78) U/L Alkaline Phosphatase 121 H (45-117) U/L Total Protein 8.0 (6.4-8.2) gm/dl Albumin 2.2 L (3.4-5.0) gm/dl Globulin 5.8 H (2.5-4.0) gm/dl Albumin/Globulin Ratio 0.4 L (0.9-2) Nasal Screen MRSA (PCR) (Negative) 05/04/20 05/04/20 05/04/20 Range/Units 17:12 16:50 05:49 WBC (4.8-10.8) K/uL RBC (4.2-5.4) M/uL Hgb (12.0-16.0) g/dL Hct (37-47) % MCV (80-100) fL MCH (25-34) pg MCHC (32-36) g/dL RDW Std Deviation (36.4-46.3) fL RDW Coeff of Katina (11.5-14.5) % Plt Count (130-400) K/uL MPV (7.4-10.4) fL Immature Gran % (Auto) % Neut % (Auto) % Lymph % (Auto) % [place] % (Auto) % Eos % (Auto) % Baso % (Auto) % Neut # (Auto) (1.4-6.5) K/uL Lymph # (Auto) (1.2-3.4) K/uL [place] # (Auto) (0.11-0.59) K/uL Eos # (Auto) (0-0.5) K/uL Baso # (Auto) (0-0.2) K/uL Immature Gran # (Auto) (0.00-0.02) K/uL Rouleaux 1+ ABG pH (7.35-7.45) ABG pCO2 (35-46) mmHg ABG pO2 (80-95) mmHg ABG HCO3 (19-24) mmol/L ABG O2 Saturation (90-95) % ABG Base Excess (-9-1.8) mEq/L Yehuda Test (Pos) Barometric Pressure mm/Hg Oxygen Given Sodium (136-145) mmol/L Potassium (3.5-5.1) mmol/L Chloride (98-107) mmol/L Carbon Dioxide (21-32) mmol/L Anion Gap (3-11) BUN (7-18) mg/dl Creatinine (0.6-1.2) mg/dl Est Cr Clr Drug Dosing ml/min Est GFR ( Amer) Est GFR (Non-Af Amer) BUN/Creatinine Ratio (10-20) Glucose (70-99) mg/dl POC Glucose 93 (70-99) mg/dl Calcium (8.5-10.1) mg/dl Total Bilirubin (0.2-1) mg/dl AST (15-37) U/L ALT (12-78) U/L Alkaline Phosphatase (45-117) U/L Total Protein (6.4-8.2) gm/dl Albumin (3.4-5.0) gm/dl Globulin (2.5-4.0) gm/dl Albumin/Globulin Ratio (0.9-2) Nasal Screen MRSA (PCR) Positive A (Negative) PG Care Time/CCT Total # of Minutes Spent Total Time Spent with Patient: Total time spent is greater than 50% in coordination of care (as documented) at patient's floor/unit and/or counseling patient: Coding Level of Care Code 24860 Subseq Hosp Care Lvl 3 Diagnoses Acute encephalopathy G93.40 UTI (urinary tract infection) N39.0 Leukocytosis D72.829 Acute kidney injury N17.9 Anemia D64.9 Microscopic hematuria R31.[address] of the abdomen R93.5 Right shoulder pain M25.511 GERD (gastroesophageal reflux disease) K21.9 T2DM (type 2 diabetes mellitus) E11.9 History of MRSA infection Z86.14 H/O recurrent urinary tract infection Z87.440 Depression with anxiety F41.8 Dyslipidemia E78.5 DVT prophylaxis Z29.9
[2020-05-05] MEDS ORDERED: ARTIFICIAL TEARS OP PRN (13:00)
--- NOTE | 2020-05-05 13:59 | Neurology Consultation ---
Date of Consultation May 05, 2020 Assessment & Plan (1) Abnormal involuntary movements: (2) Acute encephalopathy: (3) Slurred speech: (4) Hallucinations: (5) Depression with anxiety: this patient has had an acute neurologic change 48 hours ago ( May 03). Her symptoms consist of confusion and slurred speech as well as visual and auditory hallucinations, itchy skin without rash, numbness in the feet, and twitching of the limbs with tremor as well as lip smacking and tongue movements. There is some nystagmus as well. She feels that is she is having something caught in her throat and has dry mouth. Overall she appears as if she has an acute "toxic" presentation. the movements are unusual and consist of some myoclonic jerks and lip-smacking/tongue movements reminiscent to me of a tardive dyskinesia or chorea. She has action tremor bilaterally. Her speech is somewhat slurred ( although worse without her dentures in) and she has an underlying mild dementia at probably as well. She was on ertapenem from April 28 through May 04 in the afternoon. This antibiotic can give agitation / confusion, itchiness, numbness, throat issues, tremors, twitching, spasms, and jerking of the limbs. If this antibiotic was responsible for her symptoms, improvement may not come for 48 hours or so. she still has an elevated white count MRI of the brain showed no significant changes April 29 with no stroke. She does have underlying generalized atrophy. Recommendations: 1. magnesium level 2. consider lumbar puncture to evaluate for AVIONICS SYSTEM ENGINEER inflammatory or infectious disease. 3. consider discontinuing aripiprizole 4. I will follow and make additional recommendations depending on her clinical course. Overall, I spent a total of 100 minutes with this case including review of records, review of MRI films, direct evaluation the patient at bedside, and discussing the case with Kristie Mendoza PA-C including differential diagnosis and treatment options. History of Present Illness Reason for Consultation: patient is a 65-year-old who I was asked to see at the request of Dr. Hough, for neurologic consultation regarding confusion and other symptoms. Requesting Physician: Dr. Hough Attending Physician: Heather Hough MD History of Present Illness this patient has a history of longstanding anxiety and depressive disorder most of her life on multiple medications including bupropion, buspirone and aripiprazole. She is also on baclofen. She has a history of stroke of the small nature according to the daughter who is present at the exam today sometime back in 2013. The daughter states that since the stroke ( which I have no further information on ) the patient has had short- term and other memory problems. She has had some confusion at times. the patient had a urinary tract infection and MRSA infection requiring surgery on her left shoulder about 2 years ago. she has been at [facility] ever since. Patient was admitted on April 25 to the emergency room for trouble with not feeling well, sedation (probably from a fentanyl patch ) and was found to have a urinary tract infection and acute renal injury. She had microscopic hematuria. On April 28, she was put on ertapenem. According to the daughter who was present today patient was fairly well and coherent on May 02, but on May 03 she was confused and started not being able to text messages anymore. She was hallucinating visually an auditory early and had increased movements. Her feet were numb and her speech became more slurred. The ertapenem was last given add 1437 on May 04. Today the patient remains confused. She complains of feeling weak in general and having numb feet. She knows she is hearing and seeing things ( "people standing around the bed and talking to her"). She is feeling itchy all over but has no rash. This is been going on for 2 days. She is tired but has no chest or abdominal symptoms. She has not had any seizures. According to the daughter, she is about the same today she was yesterday. The daughter knows the patient has been stuttering, seems confused and having trouble forming words and is choppy with her speech. She is also having movements. Patient denies headaches or limb pain. Most recent labs reveal a white count of 12.58 and elevated BUN and creatinine of 23 and 2.2. Glucose was 106 alkaline phos 121, AST 46. she is afebrile. MRI of the brain on April 29 without contrast showed no acute stroke. She did have some old small vessel ischemic disease and some generalized atrophy which I think is out of proportion to her age. today a CT scan of the head was unremarkable. Allergies Allergy/AdvReac Type Severity Reaction Status Date / Time Penicillins Allergy Unknown . Verified 04/27/20 11:04 pregabalin Allergy Unknown . Verified 04/27/20 11:04 tramadol Allergy Unknown . Verified 04/27/20 11:04 cefazolin [From [facility]] Allergy Verified 05/05/20 10:46 Home Medications Home Medications Medication Instructions Recorded Confirmed Type acetaminophen [Tylenol] 325 mg PO Q4H PRN 05/23/18 04/27/20 History aspirin 81 mg PO QAM 05/23/18 04/27/20 History baclofen 10 mg PO TID 05/23/18 04/27/20 History buspirone 10 mg PO DAILY@1600 05/23/18 04/27/20 History dicyclomine 10 mg PO Q6H PRN 05/23/18 04/27/20 History fentanyl 1 patch TRANSDERMAL Q72H 05/23/18 04/27/20 History meloxicam 15 mg PO QAM 05/23/18 04/27/20 History omeprazole 20 mg PO QAM 05/23/18 04/27/20 History oxybutynin chloride 10 mg PO HS 05/23/18 04/27/20 History sennosides-docusate sodium 1 tab PO HS 05/23/18 04/27/20 History [Senokot-S] simvastatin 20 mg PO HS 05/23/18 04/27/20 History D-Mannose 500mg Capsule 1,000 mg PO BID 09/25/19 04/27/20 History cholecalciferol (vitamin D3) 5,000 unit PO QAM 09/25/19 04/27/20 History [Vitamin D3] cyanocobalamin (vitamin B-12) 1,000 mcg IM SUMNER 09/25/19 04/27/20 History vitamin B complex 1 tab PO QAM 09/25/19 04/27/20 History aripiprazole 5 mg PO QAM 04/27/20 04/27/20 History empagliflozin [Jardiance] 25 mg PO DAILY 04/27/20 04/27/20 History linagliptin [Tradjenta] 5 mg PO QAM 04/27/20 04/27/20 History mineral oil-isopropyl myristat 1 applic TOPICAL BID 04/27/20 04/27/20 History [Eucerin] naproxen 500 mg PO BID 04/27/20 04/27/20 History bupropion HCl 450 mg PO DAILY 05/04/20 05/04/20 History Patient History Medical History Anxiety and depression Bladder spasms Bone infection Chronic pain Depression with anxiety Dyslipidemia Dysuria GERD (gastroesophageal reflux disease) Gross hematuria H/O recurrent urinary tract infection H/O: CVA (cerebrovascular accident) History of MRSA infection Hx: UTI (urinary tract infection) Incontinence Left thigh pain Lesion of bladder Morbid obesity Osteomyelitis Surgical History History of cataract surgery S/P cholecystectomy Family History Mother , age 79 of esophageal cancer Hypertension Father , in mid 60s of an [place] Myocardial infarction Social History Smoking Status: Former smoker Tobacco Type: Cigarettes Age Quit Using Tobacco: 48; Second Hand Exposure: No; Hx Alcohol Use: No Hx Substance Use: No Preferred Language: British Communication Ability: Impaired Visual Impairment: No Limitations Tire Center Supervisor Required: No Beliefs That Will Affect Care: None marital status: Current Living Situation: Personal Care Facility Current Living Situation Comment: [place] current occupational status: retired Feels Safe at Home: Yes Safety Concerns: Feels Safe At This Time Assistive Devices: Glasses and Mechanical Lift Review of Systems Constitutional: + fatigue and + weakness; no fever Eyes: no diplopia, no eye pain and no worsening vision Ear, Nose, Mouth, Throat: no ear pain, no tinnitus, no hearing loss, no dizziness, no hoarseness and no dysphagia Respiratory: no cough and no dyspnea Cardiovascular: no chest pain, no palpitations and no lightheadedness Gastrointestinal: no abdominal pain, no nausea and no vomiting Genitourinary: no dysuria, no urinary frequency and no urinary incontinence Musculoskeletal: no back pain, no neck pain, no radicular pain, no joint pain and no myalgia Integumentary: + pruritus; no rash and no lesions Neurologic: + generalized weakness, + numbness, + tremor(s), + abnormal movements, + abnormal speech and + confusion; no gait abnormality, no localized weakness, no tingling, no headache(s) and no memory loss Psychiatric: + confusion and + hallucinations; no depression, no irritability, no anxiety and no difficulty concentrating Endocrine: no fatigue and no flushing Hematologic / Lymphatic: no easy bleeding and no easy bruising Allergy / Immunological: no urticaria and no problem reported Exam (Neuro) Physical Exam: The patient is right-handed. The patient is awake, alert, and attentive. Speech is choppy and somewhat stuttering, was difficult for her to form coherent words but this improved with clarity will we put her dentures in. There is no overt aphasia. She complains of very dry mouth and like something is in her throat. She can name objects, repeat phrases, and has normal spontaneous speech. Mood is reasonable but sometime she laughs inappropriately. Memory is somewhat poor for short term but better for long-term. The discs are sharp with positive venous pulsations bilaterally. There are no exudates, hemorrhages, or blood vessel changes seen. Pupils are 4 mm bilaterally and reactive to light. Extraocular eye muscles are intact , and there is some mild nystagmus with lateral gaze bilaterally. Visual acuity and visual greenwood seem normal grossly to confrontation. There are no deficits to sensation in the face in all 3 distributions of the fifth cranial nerve bilaterally. Corneal reflexes are positive bilaterally. Facial strength and symmetry was normal bilaterally. Hearing seems normal to whisper and finger rub bilaterally. Palate moves well without asymmetry. There is normal sternocleidomastoid and trapezius (shoulder shrug) strength bilaterally. Tongue is midline but she has trouble keeping it is still. She has lip-smacking and tongue movements that wax and wane. Neck has a full range of motion without discomfort. There are no cervical bruits bilaterally. There are no cranial or ocular bruits. Heart is without murmur. There is a regular rhythm and rate. Cervical, thoracic, and lumbar spine are nontender to palpation. Gait was not tested stance was poor sitting up in bed. With outstretched arms there is no drift on the right. the left was difficult because of her shoulder surgery she cannot hold her arm up well. She has significant action tremor bilaterally right greater than left side. She has some twitching and myoclonic jerking of the limbs right greater than left side as well. coordination is poor with [id number] testing bilaterally. Motor strength is 5/5 diffusely in the arms bilaterally including deltoids, biceps, triceps, brachioradialis, wrist flexors and extensors, metal bench patternmaker, and intrinsic hand muscles. Motor strength is 5/5 diffusely in the legs bilaterally including hip flexors, quadriceps, hamstrings, gastrocnemius, tibialis anterior, tibialis posterior, and Peroneii muscles. Toe extensors are normal and there is good bulk in the extensor digitorum brevis muscles bilaterally. She actually is not focally weak. The limbs have good tone without rigidity or spasticity. There is no atrophy noted in the muscles. Muscle bulk is normal, there is no tenderness to palpation, no myotonia to percussion, and no fasciculations seen. Sensory examination is intact to touch and pin throughout all 4 limbs diffusely. Reflexes are 1/4 in the biceps, triceps, brachioradialis, quadriceps, and Achilles tendons bilaterally. There is no clonus bilaterally. Toes are downgoing with plantar stimulation bilaterally. Peripheral pulses are present and of normal quality distally in all 4 limbs. There is no peripheral edema noted in the limbs. Results & Data ([facility]) Vital Signs (Past 12 Hours) Vital Signs Pulse Resp BP Pulse Ox 05/05/20 09:00 91 H 18 115/71 95 PG Care Time/CCT Total # of Minutes Spent Total Time Spent with Patient: Total time spent is greater than 50% in coordination of care (as documented) at patient's floor/unit and/or counseling patient: Coding Level of Care Code 77700 Initial Inpt Care Lvl 3 Diagnoses Abnormal involuntary movements R25.9 Acute encephalopathy G93.40 Slurred speech R47.81 Hallucinations R44.3 Depression with anxiety F41.8 Time Spent (min) 100 Comment Add [id number] to the [id number]
[2020-05-05] MEDS ORDERED: ATROPINE SULFATE 0.1 MG/ML 10ML SYR IV PRN (15:55)
[2020-05-05] MEDS ORDERED: ONDANSETRON INJ 2 MG/ML 2 ML VIAL IV PRN (15:55)
--- NOTE | 2020-05-05 15:55 | Anesthesiology Consultation ---
Date of Service May 05, 2020 Assessment & Plan Chart Review Chart Review: Acceptable Risk for Surgery ASA ASA3 Proposed Anesthesia Anesthesia Type: MAC History Surgery Operation Date: 05/05/20 10:20 Proposed Procedures p Ureteral Stent Insertion/Removal - Tyree Toney DO s Cold Cup Biopsy Bladder Tumor - Tyree Toney DO Height/Weight Height: 5 ft 5 in Weight: 137.4 kg Allergies Allergy/AdvReac Type Severity Reaction Status Date / Time Penicillins Allergy Unknown . Verified 04/27/20 11:04 pregabalin Allergy Unknown . Verified 04/27/20 11:04 tramadol Allergy Unknown . Verified 04/27/20 11:04 cefazolin [From [facility]] Allergy Verified 05/05/20 10:46 Medications Home Medications Medication Instructions Recorded Confirmed Last Taken acetaminophen [Tylenol] 325 mg PO Q4H PRN 05/23/18 04/27/20 Unknown aspirin 81 mg PO QAM 05/23/18 04/27/20 04/26/20 baclofen 10 mg PO TID 05/23/18 04/27/20 04/26/20 buspirone 10 mg PO DAILY@1600 05/23/18 04/27/20 04/26/20 dicyclomine 10 mg PO Q6H PRN 05/23/18 04/27/20 Unknown fentanyl 1 patch TRANSDERMAL Q72H 05/23/18 04/27/20 04/26/20 meloxicam 15 mg PO QAM 05/23/18 04/27/20 04/26/20 omeprazole 20 mg PO QAM 05/23/18 04/27/20 04/26/20 oxybutynin chloride 10 mg PO HS 05/23/18 04/27/20 04/26/20 sennosides-docusate sodium 1 tab PO HS 05/23/18 04/27/20 04/26/20 [Senokot-S] simvastatin 20 mg PO HS 05/23/18 04/27/20 04/26/20 D-Mannose 500mg Capsule 1,000 mg PO BID 09/25/19 04/27/20 04/26/20 cholecalciferol (vitamin D3) 5,000 unit PO QAM 09/25/19 04/27/20 04/26/20 [Vitamin D3] cyanocobalamin (vitamin B-12) 1,000 mcg IM SHE[place]LEY 09/25/19 04/27/20 04/26/20 vitamin B complex 1 tab PO QAM 09/25/19 04/27/20 04/26/20 aripiprazole 5 mg PO QAM 04/27/20 04/27/20 04/26/20 empagliflozin [Jardiance] 25 mg PO DAILY 04/27/20 04/27/20 04/26/20 linagliptin [Tradjenta] 5 mg PO QAM 04/27/20 04/27/20 04/26/20 mineral oil-isopropyl myristat 1 applic TOPICAL BID 04/27/20 04/27/20 04/26/20 [Eucerin] naproxen 500 mg PO BID 04/27/20 04/27/20 04/26/20 bupropion HCl 450 mg PO DAILY 05/04/20 05/04/20 Unknown Active Medications Generic Name Dose Route Start Last Admin Trade Name Freq PRN Reason Stop Dose Admin Acetaminophen 650 mg 04/27/20 20:11 05/05/20 10:45 Acetaminophen 325 Mg Tab PO 05/27/20 20:10 650 mg Q4H PRN Administration Pain or Fever Aripiprazole 5 mg 04/28/20 09:00 05/05/20 10:50 Aripiprazole 5 Mg Tab PO 05/28/20 08:59 5 mg QAM ELAN Administration Aspirin 81 mg 05/05/20 09:00 05/05/20 10:39 Aspirin 81 Mg Ectab PO 06/04/20 08:59 81 mg QAM ELAN Administration Bupropion HCl 300 mg 05/05/20 09:00 05/05/20 10:56 Bupropion Xl 300 Mg Tabcr PO 06/04/20 08:59 300 mg QAM ELAN Administration Cyanocobalamin 1,000 mcg 05/03/20 09:00 05/03/20 08:00 Cyanocobalamin 1000 Mcg/Ml Vial IM 06/02/20 08:59 1,000 mcg Shelley@0900 ELAN Administration Ferrous Gluconate 324 mg 04/29/20 09:00 05/05/20 10:51 Ferrous Gluconate 324 Mg Tab PO 05/29/20 08:59 324 mg QAM ELAN Administration Sodium Chloride 1,000 mls @ 80 mls/hr 05/04/20 17:30 05/05/20 07:44 Nss 1000ml IV 06/03/20 17:29 80 mls/hr .[id number] ELAN Administration Insulin Aspart 0 units 05/05/20 06:00 05/05/20 12:28 Insulin Aspart 100 Units/Ml 3 Ml Pen SC 06/04/20 05:59 Not Given Q6 ELAN Insulin Glargine 10 units 04/27/20 21:00 05/05/20 10:39 Insulin Glargine Solostar 100 Units/Ml 3 Ml Pen SC 05/27/20 20:59 10 units BID ELAN Administration Lactobacillus Acidoph/Casei/Rhamnos 2 cap 05/01/20 09:00 05/05/20 10:48 Advanced Probiotic 1250 Mg Capsule PO 05/31/20 08:59 2 cap DAILY ELAN Administration Senna/Docusate Sodium 1 tab 04/27/20 21:00 05/04/20 22:03 Docusate Sodium/Senna 50/8.6mg Tab PO 05/27/20 20:59 1 tab HS ELAN Administration Vitamin B Complex 1 tab 04/28/20 09:00 05/05/20 10:48 Vitamin B Complex Tab PO 05/28/20 08:59 1 tab QAM ELAN Administration Vitamin D 5,000 units 04/28/20 09:00 05/05/20 10:48 Cholecalciferol 1,000 Units 25 Mcg Tab PO 05/28/20 08:59 5,000 units QAM ELAN Administration NPO Date Last Intake of Fluids: 05/04/20 Time Last Intake of Fluids: 23:00 Date Last Intake of Solids: 05/04/20 Time Last Intake of Solids: 23:00 Past Medical History Medical History (Updated 05/05/20 @ 15:54 by Mino Knox MD) Acute encephalopathy Acute kidney injury Anxiety and depression Bladder spasms Bone infection Chronic pain Depression with anxiety Dyslipidemia Dysuria GERD (gastroesophageal reflux disease) Gross hematuria H/O recurrent urinary tract infection H/O: CVA (cerebrovascular accident) History of MRSA infection Hx: UTI (urinary tract infection) Incontinence Left thigh pain Lesion of bladder Morbid obesity Osteomyelitis Past Family History Family History Mother , age 79 of esophageal cancer Hypertension Father , in mid 60s of an [place] Myocardial infarction Past Surgical History Surgical History History of cataract surgery S/P cholecystectomy Social History Smoking Status: Former smoker Hx Alcohol Use: No Hx Substance Use: No substance use type: does not use Physical Exam Vital Signs Last Vital Signs Temp 37.7 C H 05/05/20 13:48 Pulse 92 H 05/05/20 13:48 Resp 20 05/05/20 13:48 BP 119/91 05/05/20 13:48 Pulse Ox 95 05/05/20 13:48 Testing Laboratory Results 05/05/20 05:22 05/05/20 05:22 Hemoglobin A1c 8.3 % (4.5-5.6) H 04/28/20 08:35 Urine Color Yellow 05/03/20 10:15 Urine Appearance Turbid (Clear) A 05/03/20 10:15 Urine pH 6.5 (4.5-7.5) 05/03/20 10:15 Ur Specific [place] 1.010 (1.000-1.030) 05/03/20 10:15 Urine Protein 1+ (Negative) H 05/03/20 10:15 Urine Glucose (UA) Trace (Negative) H 05/03/20 10:15 Urine Ketones Negative (Negative) 05/03/20 10:15 Urine Nitrite Negative (Negative) 05/03/20 10:15 Ur Leukocyte Esterase 3+ (Negative) H 05/03/20 10:15 Urine WBC (Auto) >30 /hpf (0-5) H 05/03/20 10:15 Urine RBC (Auto) >30 /hpf (0-4) H 05/03/20 10:15 U Hyaline Cast (Auto) >30 /lpf (0-5) H 05/03/20 10:15 U Epithel Cells (Auto) >30 /lpf (0-5) H 05/03/20 10:15 Urine Bacteria (Auto) Negative (Negative) 05/03/20 10:15 Blood Type A Positive 04/27/20 21:37 Antibody Screen NEGATIVE 04/27/20 21:37 05/03/20 09:44 Aerobic Blood Culture - Preliminary Blood No growth in Aerobic bottle after 48 hours. Anaerobic Blood Culture - Preliminary No growth in Anaerobic bottle after 48 hours. 05/03/20 09:53 Aerobic Blood Culture - Preliminary Blood No growth in Aerobic bottle after 48 hours. Anaerobic Blood Culture - Preliminary No growth in Anaerobic bottle after 48 hours. 05/03/20 10:15 Urine Culture - Final Urine,Clean Catch Gram negative bacilli 05/01/20 13:57 Fungal Smear - Final Urine,Indwelling Cath Fungal Culture - Preliminary Yeast not Michelle albicans/dub 04/27/20 11:21 Aerobic Blood Culture - Final Blood No growth in Aerobic bottle after 5 days. Anaerobic Blood Culture - Final No growth in Anaerobic bottle after 5 days. 04/27/20 11:49 Aerobic Blood Culture - Final Blood No growth in Aerobic bottle after 5 days. Anaerobic Blood Culture - Final No growth in Anaerobic bottle after 5 days. 04/27/20 15:31 Urine Culture - Final Urine,Straight Cath Klebsiella pneumoniae Lactobacillus species 05/05/20 05/05/20 12:28 05:51 POC Glucose 96 109 H Electrocardiogram Date: 04/27/20 Findings: + NSR @ (08)
[2020-05-05] MEDS ORDERED: LIDOCAINE HCL 2% 2 ML VIAL/AMP(20MG/ML) INFIL ONE (16:39)
[2020-05-05] MEDS ORDERED: PROPOFOL IV EMULSION 10 MG/ML 20 ML VIAL IV ONE (16:39)
--- NOTE | 2020-05-05 17:15 | Operative Report ---
PG Post Operative Report Pre & Post Diagnosis Preop: Hydronephrosis with renal injury Postop same Operation Date: 05/05/20 10:20 <No data on this case meets the specified criteria> I identified the patient and participated in the time-out.: Yes Procedure Cystoscopy with bilateral retrograde pyelograms and stent placement Operation Date: 05/05/20 10:20 <No data on this case meets the specified criteria> Surgeon yTree Toney, II, DO [place] Rol[place] None Estimated Blood Loss 1 Findings Consistent with Post-Op Diagnosis Stent placed in good position. Severely contracted bladder with signs of fissure and bladder lining. Specimens None Drains 4.8 Fr Multilength bilateral 20 German three-way cath Anesthesia Type MAC Complications none Disposition Disposition: Recovery Room Indications Patient with obstruction. Risks and benefits discussed at length. Description of Procedure Patient was consented and brought back to the operating room. Patient was placed under anesthesia in the supine position and moved to the dorsal lithotomy position. Patient was prepped and draped in the regular sterile fashion. A time out was completed. A 30degree Cystoscope was placed into the bladder and the entire bladder was examined. The UO's were identified. The patient's bladder was found to be extremely contracted. Signs of mild irritation and bleeding from fissures within the bladder lining. The UO was cannulized with a catheter and a retrograde pyelogram was completed. A wire was then placed. With the wire in place, a 6 Fr Double J stent was placed. It was confirmed with fluoroscopy. With the stent in place, the bladder was emptied. The scope was removed. A 20 German three-way catheter was placed on irrigation. The patient was cleaned, aroused from anesthesia, and transferred to the pacu in stable condition having tolerated the procedure well with no complications. I was present and participated in all aspects of the procedure. The patient will be monitored in the PACU until transferred. I attest to the content of the Intraoperative Record and any orders documented therein. Any exceptions are noted below.
[2020-05-05] MEDS ORDERED: DIATRIZOATE MEGLUMINE 30% 100ML VIAL INSTIL ONE (17:22)
--- NOTE | 2020-05-05 17:25 | Anesthesiology Progress Note ---
Date of Service May 05, 2020 Anesthesia Post Procedure Vital Signs Vital Signs: Temp Pulse Pulse Pulse Resp BP Pulse Ox 05/05/20 17:15 98 H 20 113/59 L 96 05/05/20 17:07 36.2 C L 99 H 19 122/70 95 05/05/20 13:48 37.7 C H 92 H 20 119/91 95 05/05/20 09:00 91 H 18 115/71 95 05/04/20 23:57 36.8 C 92 H 20 113/62 92 Pain Intensity Right Shoulder: Pain Intensity: 4 Left Leg: Pain Intensity: 4 Back: Pain Intensity: 0 Transfer of Care Handoff Completed per policy Notes Mental Status: alert / awake / arousable and participated in evaluation Nausea / Vomiting: adequately controlled Pain: adequately controlled Airway Patency, RR, SpO2: stable & adequate BP & HR: stable & adequate Hydration State: stable & adequate Anesthetic Complications: no major complications apparent
--- NOTE | 2020-05-05 17:53 | Fluoroscopy Report ---
FL retrograde includes kub HISTORY: 65 years-old Female CYSTO/RETROGRADE cystourethrogram COMPARISON: CT abdomen and pelvis 04/27/2020 TECHNIQUE: 6 spot fluoroscopic images of the abdomen and pelvis were utilizing 52.4 seconds fluorosco py time FINDINGS: Retrograde opacification and cannulation of the left ureter is noted without significant hydronephrou reter or hydronephrosis. Subsequent images demonstrate placement of a left ureteral stent which appea rs to be in satisfactory positioning. Cannulation of the right ureter is noted with mild dilation of the right renal pelvis. Subsequent images demonstrate deployment of a right ureteral stent which appe ars to be in satisfactory positioning. IMPRESSION: Status post placement of bilateral ureteral stents which appear to be in satisfactory pos itioning. ACT 112: Negative or not required by law. The above report was generated using voice recognition software. It may contain grammatical, syntax o r spelling errors. Electronically signed by: Ben Vo M.D. 05/05/2020 5:51 PM
[2020-05-05] MEDS: busPIRone 5 MG TAB PO SCH (18:01)
[2020-05-05] MEDS: SIMVASTATIN 20 MG TAB PO SCH (21:41)
[2020-05-05] MEDS: DOCUSATE SODIUM/SENNA 50/8.6MG TAB PO SCH (21:44)
[2020-05-06] MEDS: INSULIN ASPART 100 UNITS/ML 3 ML PEN SC SCH ×5 (00:05→21:15)
[2020-05-06 05:58] LABS: Basophils # (auto) 0.05 K/uL (0-0.2); Basophils % (auto) 0.4 %; Eosinophils # (auto) 0.27 K/uL (0-0.5); Eosinophils % (auto) 2.4 %; Hematocrit (blood only) 30.9 % (37-47); Hemoglobin 9.5 g/dL (12.0-16.0); Immature Granulocytes # (auto) 0.03 K/uL (0.00-0.02); Immature Granulocytes % (auto) 0.3 %; Lymphocytes # (auto) 2.56 K/uL (1.2-3.4); Lymphocytes % (auto) 22.7 %; Mean Corpuscular Hemoglobin 25.5 pg (25-34); Mean Corpuscular Hgb Conc 30.7 g/dL (32-36); Mean Corpuscular Volume 83.1 fL (80-100); Mean Platelet Volume 8.8 fL (7.4-10.4); Monocytes # (auto) 0.62 K/uL (0.11-0.59); Monocytes % (auto) 5.5 %; Neutrophils # (auto) 7.74 K/uL (1.4-6.5); Neutrophils % (auto) 68.7 %; Platelet Count 554 K/uL (130-400); RDW Coefficient of Variation 19.8 % (11.5-14.5); RDW Standard Deviation 57.4 fL (36.4-46.3); Red Blood Count 3.72 M/uL (4.2-5.4); White Blood Count 11.27 K/uL (4.8-10.8)
[2020-05-06 06:35] LABS: Albumin Level 2.2 gm/dl (3.4-5.0); BUN Creatinine Ratio 9.8 (10-20); Bilirubin Direct 0.3 mg/dl (0-0.2); Calcium 8.4 mg/dl (8.5-10.1); Creatinine Clr Calc Pharmacy 37.9 ml/min; Est GFR (African American) 27.7; Est GFR (Non-African American) 23.9; Potassium 3.7 mmol/L (3.5-5.1)
[2020-05-06 06:37] LABS: Bilirubin,Total 0.6 mg/dl (0.2-1); Total Protein 7.9 gm/dl (6.4-8.2)
[2020-05-06] MEDS ORDERED: Nursing to Pharmacy Communication SCH (07:30)
[2020-05-06] MEDS: INSULIN GLARGINE SOLOSTAR 100 UNITS/ML 3 ML PEN SC SCH ×2 (08:43→21:21)
[2020-05-06] MEDS: buPROPion XL 300 MG TABCR PO SCH (08:45)
[2020-05-06] MEDS: FERROUS GLUCONATE 324 MG TAB PO SCH (08:45)
[2020-05-06] MEDS: CHOLECALCIFEROL 1,000 UNITS 25 MCG TAB PO SCH (08:46)
[2020-05-06] MEDS: ADVANCED PROBIOTIC 1250 MG CAPSULE PO SCH (08:46)
[2020-05-06] MEDS: VITAMIN B COMPLEX TAB PO SCH (08:47)
--- NOTE | 2020-05-06 08:50 | Urology Progress Note ---
Date of Service May 06, 2020 Assessment & Plan (1) Microscopic hematuria: (2) Abnormal CT of the abdomen: (3) Acute kidney injury: 65 year-old female patient admitted with acute kidney injury, bilateral hydronephrosis, leukocytosis, and urinary tract infection. - Plan of care reviewed with Dr. Capps. - POD #1 cystoscopy with bilateral retrograde pyelogram and bilateral stent placement, signs of mild irritation and bleeding from fissures within the bladder lining. - Patient remains afebrile, creatinine and white count improved. - Urine culture positive for Klebsiella, Ertapenem completed after 7 day course as this was felt to contribute to confusion. - Fungal urine culture 05/01 with yeast, not sonja - considering treatment with Amphotericin B bladder installations x5 days. - Preliminary blood cultures negative after 48 hours. - Continue three way engel catheter and CBI at slow rate for now. - Continue with supportive care. - Patient undergoing neurology evaluation with planned lumbar puncture today. - Patient's daughter, primary contact, updated at bedside, all questions answered to the best of my ability. - Continue to follow closely while inpatient. Admission and Anticipated Discharge Date Admission Date: April 27, 2020 Subjective POD #1 cystoscopy with bilateral retrograde pyelogram and bilateral stent placement. Does appear more alert/interactive today however continues to be disoriented. Denies abdominal/flank pain. No nausea or vomiting. Denies fevers or chills. 20 Green[place]ic three-way engel catheter intact with CBI running at slow rate, urine clear yellow without notable sediment. Chart review: Afebrile Wbc 11.27 (previously 12.58) Hgb 9.5 Creatinine 2.14 (previously 2.20) Urine culture 04/27 positive for Klebsiella, Ertapenem completed after 7 day course, ID consult in place. Repeat urine culture 05/01 with yeast, not sonja. Repeat fungal urine culture 05/03 with 5,000 cfu gram negative without iden tification or sensitivities. Preliminary blood culture no growth after 48 hours. Repeat renal ultrasound 05/04 - IMPRESSION: 1. No right hydronephrosis. 2. Improvement in the fullness within the left renal pelvis. 3. Bladder is decompressed by Engel catheter. Denies additional concerns. Review of Systems Constitutional: as per Subjective / HPI; no fever and no chills Cardiovascular: no edema Gastrointestinal: as per Subjective / HPI; no abdominal pain, no nausea and no vomiting Genitourinary: as per Subjective / HPI Neurologic: as per Subjective / HPI Psychiatric: as per Subjective / HPI Physical Exam Constitutional: cooperative and comfortable; no acute distress and not ill appearing ENMT: Ears: no hearing impairment Neck: trachea midline Respiratory: normal respiratory effort and able to speak in complete sentences; no respiratory distress and no audible wheezes Cardiovascular: Extremities: no edema Gastrointestinal (Abdomen): Inspection/Auscultation: abdomen normal to inspection; abdomen not distended Percussion/Palpation: abdomen soft; abdomen nontender and no guarding Skin: No visible rashes, lesions, or wounds. Psychiatric: Orientation: alert, oriented to person and cooperative; + not oriented to place and + not oriented to time Genitourinary: no CVA tenderness Three way engel catheter intact, draining with CBI at slow rate. Urine clear yellow without notable sediment. Results & Data ([facility]) Vital Signs (Past 12 Hours) Vital Signs Temp Pulse Resp BP Pulse Ox 05/06/20 07:09 37.1 C 95 H 18 123/61 91 05/06/20 03:05 36.8 C 92 H 18 140/71 93 05/05/20 22:49 37 C 89 18 130/67 91 05/05/20 20:58 36.3 C L 91 H 18 96/57 L 90 PG Care Time/CCT Total # of Minutes Spent Total Time Spent with Patient: Total time spent is greater than 50% in coordination of care (as documented) at patient's floor/unit and/or counseling patient: Coding Level of Care Code 90831 Subseq Hosp Care Lvl 2 Diagnoses Microscopic hematuria R31.[address] of the abdomen R93.5 Acute kidney injury N17.9
--- NOTE | 2020-05-06 10:38 | Fluoroscopy Report ---
FLUOROSCOPICALLY GUIDED LUMBAR PUNCTURE CLINICAL HISTORY: encephalitisconfusion. FLUOROSCOPY TIME: 47 seconds. 2 fluoroscopic spot images of the lumbar spine. PROCEDURE: The procedure, risks and benefits were discussed with the patient including the risk of s quyen headache, bleeding and infection. The patient's daughter agreed to the procedure and informed w ritten consent was obtained. The procedure was performed by Dr. Monteiro following a timeout. The ri ghtL3-L4 interlaminar space was targeted. Skin overlying the space was prepped and draped in the usua l sterile fashion and local anesthesia was achieved with 1% lidocaine. Under intermittent fluoroscopi c guidance, a 20-gauge x 15 cm Sprotte needle was inserted into the thecal sac. A total of 2cc of ser osanguineous cerebral spinal fluid was obtained and spread amongst 4 vials. The patient tolerated the procedure well. There were no immediate complications. The specimens were sent to the laboratory at the request of the referring physician. IMPRESSION: Successful fluoroscopic guided lumbar puncture with removal of 2 cc of serosanguineous ce rebral spinal fluid. No immediate complications. ACT 112: Negative or not required by law. Electronically signed by: Mak Monteiro M.D. 05/06/2020 10:36 AM
--- NOTE | 2020-05-06 11:09 | Neurology Progress Note ---
Date of Service May 06, 2020 Assessment & Plan (1) Abnormal involuntary movements: (2) Acute encephalopathy: (3) Slurred speech: (4) Hallucinations: (5) Depression with anxiety: This patient had an acute neurologic change May 03. Her symptoms consisted of confusion and slurred speech as well as visual and auditory hallucinations, itchy skin without rash, numbness in the feet, and twitching of the limbs with tremor as well as lip smacking and tongue movements. There is some nystagmus as well. She feels that is she is having something caught in her throat and has dry mouth. Overall she appeared as if she had an acute "toxic" presentation. the movements are unusual and consist of some myoclonic jerks and lip-smacking/tongue movements reminiscent to me of a tardive dyskinesia or chorea. She has action tremor bilaterally. Her speech is somewhat slurred ( although worse without her dentures in) and she has an underlying mild dementia at probably as well. She was on ertapenem from April 28 through May 04 in the afternoon. This antibiotic can give agitation / confusion, itchiness, numbness, throat issues, tremors, twitching, spasms, and jerking of the limbs. If this antibiotic was responsible for her symptoms, improvement may not come for 48 hours or so. she still has an elevated white count MRI of the brain showed no significant changes April 29 with no stroke. She does have underlying generalized atrophy. Today she is markedly calmer. She is not having abnormal involuntary movements like she did yesterday. Recommendations: 1. Awaiting lumbar puncture results. 2. Otherwise, I have no further neurologic testing or treatment recommendations to make at this time and suspect that she will improve a little bit more each day over next several days. Overall, I spent a total of 25 minutes with this case including review of records, direct evaluation the patient at bedside, and discussion of the case with Kristie Mendoza PA-C, including differential diagnosis and treatment options. Admission and Anticipated Discharge Date Admission Date: April 27, 2020 Subjective Patient is stable with no new events. She underwent LP earlier today and the results are pending. Her daughter says she has to having less twitching today compared to yesterday. Vital signs are stable and she is afebrile. She is still anemic. White count is mildly lower Mr. [email or web address]. Results & Data ([facility]) Vital Signs (Past 12 Hours) Vital Signs Temp Pulse Resp BP Pulse Ox 05/06/20 07:09 37.1 C 95 H 18 123/61 91 05/06/20 03:05 36.8 C 92 H 18 140/71 93 Exam (Neuro) Physical Exam: She is awake and alert. She has dysarthria because she does not have her dentures in. She is intelligible when she is getting manage her daughter and could speaking louder. She will follow one-step commands. She is not having any myoclonic jerks or restlessness/ twitching of the limbs. She has no abnormal tongue movements or lip smacking either. PG Care Time/CCT Total # of Minutes Spent Total Time Spent with Patient: Total time spent is greater than 50% in coordination of care (as documented) at patient's floor/unit and/or counseling patient: Coding Level of Care Code 92542 Subseq Hosp Care Lvl 2 Diagnoses Abnormal involuntary movements R25.9 Acute encephalopathy G93.40 Slurred speech R47.81 Hallucinations R44.3 Depression with anxiety F41.8 Time Spent (min) 25
--- NOTE | 2020-05-06 11:49 | Hospitalist Progress Note ---
Date of Service May 06, 2020 Assessment & Plan (1) Acute encephalopathy: Worsening confusion, lip smacking/tongue movements appearing as toxic encephalopathy. Treat for Klebsiella UTI with Ertapenem x 7 days (completed yesterday)--> Of note, patient had been on 1,000mg daily Ertapenem and CrCl only slightly above cutoff for reduced dosing as noted by ID provider during video conference yesterday Very likely could be side effects of ertapenem which has since been discontinued * CT Head w/o acute findings * Neurology consulted -- appreciate rec's IMPROVING * s/p LP this morning -- clot in tap and only able to obtain biofire PCR. Not e nough for cell count/protein/etc. Biofire negative * ABG with Po2 low, pH normal. No white count. No further fevers * Continue to monitor * Continue to hold home Abilify (2) UTI (urinary tract infection): Klebsiella UTI * Completed 7-day course of ertapenem * BC no growth, fungal culture ordered by urology (not to treat per ID). Repeat urine cx with gram negative bacilli, CFU 5000CFU no identification/sensitivities to follow * Per urology - continue supportive care, maintain Engel catheter for now -- will discuss about discontinuing * ID consulted -- rec to discontinue Ertapenem as patient received 7 days total IV (not renally dosed) as this could have contributed to worsened confusion since Monday. Rec not treating yeast POD#1 s/p bilateral stents with Dr. Toney. Mild irritation and bleeding from fissures within bladder noted. Biopsy negative for malignancy but does show inflammation * Continue 3 way engel catheter and CBI at slow rate * Given yeast on recent cx and concern for migration to kidneys, will move forward with ampho B for 5 days (3) Leukocytosis: * WBC essentially unchanged and also with worsening thrombocytosis-could be reactive to anemia versus infection * Increased delirium possibly related to ertapenem as above * Initially trended down, then up, now back down, currently 11.27k * Repeat cultures were drawn, see above * Of note, Patient has a history of septic shoulder in the left. She does have some pain in her right shoulder but it's not overly impressive in presentation for a septic joint, however per patient's daughter her left shoulder sepsis was subtle in presentation. XR of the shoulder earlier in the stay showed chronic rotator cuff injury and degenerative changes but no acute abnormality. If workup remains unrevealing could consider MRI although at this point her kidney function would not allow for contrast. (4) Acute kidney injury: * In setting of NSAID use (confirmed taking both meloxicam and naproxen). Hold NSAIDs and aspirin. Was also on Jardiance which can cause complex human resources manager to rise * NSS @ 80cc/hr * Nephrology on consult -- asked to re-eval today. Likely obtruction of ureteral orifices due to inflammation contributed to SOLEDAD * US Renal with improvement of fullness L renal pelvis * s/p b/l stents as above on 05/[address] Toney * Cr minimally improved to 2.14 * BMp in AM (5) Anemia: * Iron deficient -- Iron is low at 16, transferrin 139, ferritin 238 - initiated iron supplementation orally and could consider giving IV iron while hospitalized * Likely from continue microscopic hematuria, unaware of most recent colonoscopy/egd * H/h 9.5/30.9 * CBC in AM * fecal occult ordered for completeness (6) Microscopic hematuria: * UA with RBC positive for at least 1 year, CT equivocal for right renal pelvis hemorrhage, current anemia and acute kidney injury. * Repeat imaging with US showing improvement * Cystoscopy with bleeding fissues noted, biopsy without malignancy * Urine cytology added (7) Abnormal CT of the abdomen: * As above for microscopic hematuria. (8) Right shoulder pain: * XR right shoulder without obvious acute change but does show chronic rotator cuff injury (9) GERD (gastroesophageal reflux disease): * not on PPI at home and with renal failure here--> dc PPI (10) T2DM (type 2 diabetes mellitus): * HbA1C 8.3 * Hold linagliptin and empagliflozin and would not restart Jardiance given elevated complex human resources manager and UTI. * Continue Lantus 10 units twice daily, NovoLog sliding scale ACHS * BSGs stable (11) History of MRSA infection: * Contact precautions -- repeat MRSA nasal swab per daughter request, + (12) H/O recurrent urinary tract infection: * Recommend not restarting Jardiance on discharge as this will significantly increase her risk of urinary tract infections. (13) Depression with anxiety: * Continue home medications except noted that bupropion is only prescribed 300 mg of the extended release once daily, not 450 mg-this dosing was changed here * Continue home buspirone --> changed to 5mg daily as she had been on outpatient * Holding Abilify d/t above (14) Dyslipidemia: * Resumed home simvastatin now as no longer on daptomycin (15) DVT prophylaxis: * SCDs. * No chemical prophylaxis due hematuria/renal hemorrhage as above Dispo: Patient resident at [facility]. CM following Continue to monitor for improvement of cognition since d/c Ertapenem. Continued ampho B Admission and Anticipated Discharge Date Admission Date: April 27, 2020 Supervising Physician Co-Signing Physician Notes PA Supervision Note: I did not personally see or examine the patient today, but I verified all del rosario points of RUIZ Mendoza's assessment and plan with the following exceptions/additions: None Subjective Patient evaluated this morning, daughter at bedside. Had been down for LP this morning. Denies headache and has been laying flat for past hour. More alert this morning and answering questions more appropriately but still not at baseline. Less twitching and lip movement today. Tremor reduced. Anxiously awaiting food as her mouth is dry from being NPO and requesting to eat. Monitored daughter administer yogurt without difficulty. Plans to send out CSF for biofire as not much sample able to be obtained and with clot present. Neurology had been in this morning and was happy to see improvement, and daughter states patient was attempting to joke around with Dr. Parrish. Denies pain currently. Discussed now with stents, we may proceed with ampho B through her 3 way catheter for the next 5 days as concerns with fungus migrating up to kidneys. Dr. Marie at bedside when I entered the room. No fever, chills, chest pain, shortness of breath, abd pain, n/v at this time. Review of Systems Review of Systems: All systems reviewed & are unremarkable except as noted in HPI & below Physical Exam Constitutional: WD/WN, vitals as above + obese; no acute distress laying flat in bed following LP this morning Eyes: + anicteric sclerae and PERRL Neck: normal visual inspection Respiratory: normal respiratory effort, lungs clear to auscultation Auscultation: + diminished lung sounds Cardiovascular: RRR, no murmur, no edema Gastrointestinal (Abdomen): normal bowel sounds, soft, nontender, no hepatosplenomegaly Musculoskeletal: no cyanosis or clubbing, extremities motor strength 5/5 Head/Neck/Chest: head atraumatic and neck supple Skin: warm, dry Neurologic: moves all extremities and awake Psychiatric: Orientation: alert and oriented to person; + not oriented to place and + not oriented to time Genitourinary: engel with yellow/cloudy urine draining Lymphatic: no cervical or axillary lymphadenopathy Results & Data Results & Data ([facility]) Vital Signs (Past 12 Hours) Vital Signs Temp Pulse Resp BP Pulse Ox 05/06/20 07:09 37.1 C 95 H 18 123/61 91 05/06/20 03:05 36.8 C 92 H 18 140/71 93 Laboratory Results 05/06/20 05/06/20 05/06/20 Range/Units Unknown 12:04 08:26 WBC (4.8-10.8) K/uL RBC (4.2-5.4) M/uL Hgb (12.0-16.0) g/dL Hct (37-47) % MCV (80-100) fL MCH (25-34) pg MCHC (32-36) g/dL RDW Std Deviation (36.4-46.3) fL RDW Coeff of Katina (11.5-14.5) % Plt Count (130-400) K/uL MPV (7.4-10.4) fL Immature Gran % (Auto) % Neut % (Auto) % Lymph % (Auto) % Tyler % (Auto) % Eos % (Auto) % Baso % (Auto) % Neut # (Auto) (1.4-6.5) K/uL Lymph # (Auto) (1.2-3.4) K/uL Tyler # (Auto) (0.11-0.59) K/uL Eos # (Auto) (0-0.5) K/uL Baso # (Auto) (0-0.2) K/uL Immature Gran # (Auto) (0.00-0.02) K/uL Sodium (136-145) mmol/L Potassium (3.5-5.1) mmol/L Chloride (98-107) mmol/L Carbon Dioxide (21-32) mmol/L Anion Gap (3-11) BUN (7-18) mg/dl Creatinine (0.6-1.2) mg/dl Est Cr Clr Drug Dosing ml/min Est GFR ( Amer) Est GFR (Non-Af Amer) BUN/Creatinine Ratio (10-20) Glucose (70-99) mg/dl POC Glucose 100 H 96 (70-99) mg/dl Calcium (8.5-10.1) mg/dl Magnesium (1.8-2.4) mg/dl Total Bilirubin (0.2-1) mg/dl Direct Bilirubin (0-0.2) mg/dl AST (15-37) U/L ALT (12-78) U/L Alkaline Phosphatase (45-117) U/L Total Protein (6.4-8.2) gm/dl Albumin (3.4-5.0) gm/dl CSF C.neoform/gat PCR Not Detected (NotDetected) CSF CMV DNA (PCR) Not Detected (NotDetected) CSF Enterovirus (PCR) Not Detected (NotDetected) CSF E. coli K1 (PCR) Not Detected (NotDetected) CSF H. influenzae (PCR) Not Detected (NotDetected) CSF HSV I (PCR) Not Detected (NotDetected) CSF HSV II (PCR) Not Detected (NotDetected) CSF HHV 6 (PCR) Not Detected (NotDetected) CSF L.monocytogenes PCR Not Detected (NotDetected) CSF N. meningitidis PCR Not Detected (NotDetected) CSF Parechovirus (PCR) Not Detected (NotDetected) CSF S. agalactiae (PCR) Not Detected (NotDetected) CSF S. pneumoniae (PCR) Not Detected (NotDetected) CSF VZV DNA (PCR) Not Detected (NotDetected) 05/06/20 05/06/20 05/06/20 Range/Units 06:17 05:23 05:23 WBC 11.27 H (4.8-10.8) K/uL RBC 3.72 L (4.2-5.4) M/uL Hgb 9.5 L (12.0-16.0) g/dL Hct 30.9 L (37-47) % MCV 83.1 (80-100) fL MCH 25.5 (25-34) pg MCHC 30.7 L (32-36) g/dL RDW Std Deviation 57.4 H (36.4-46.3) fL RDW Coeff of Katina 19.8 H (11.5-14.5) % Plt Count 554 H (130-400) K/uL MPV 8.8 (7.4-10.4) fL Immature Gran % (Auto) 0.3 % Neut % (Auto) 68.7 % Lymph % (Auto) 22.7 % Tyler % (Auto) 5.5 % Eos % (Auto) 2.4 % Baso % (Auto) 0.4 % Neut # (Auto) 7.74 H (1.4-6.5) K/uL Lymph # (Auto) 2.56 (1.2-3.4) K/uL Tyler # (Auto) 0.62 H (0.11-0.59) K/uL Eos # (Auto) 0.27 (0-0.5) K/uL Baso # (Auto) 0.05 (0-0.2) K/uL Immature Gran # (Auto) 0.03 H (0.00-0.02) K/uL Sodium 143 (136-145) mmol/L Potassium 3.7 (3.5-5.1) mmol/L Chloride 111 H (98-107) mmol/L Carbon Dioxide 25 (21-32) mmol/L Anion Gap 7.0 (3-11) BUN 21 H (7-18) mg/dl Creatinine 2.14 H (0.6-1.2) mg/dl Est Cr Clr Drug Dosing 37.9 ml/min Est GFR ( Amer) 27.7 Est GFR (Non-Af Amer) 23.9 BUN/Creatinine Ratio 9.8 L (10-20) Glucose 85 (70-99) mg/dl POC Glucose 94 (70-99) mg/dl Calcium 8.4 L (8.5-10.1) mg/dl Magnesium (1.8-2.4) mg/dl Total Bilirubin 0.6 (0.2-1) mg/dl Direct Bilirubin 0.3 H (0-0.2) mg/dl AST 39 H (15-37) U/L ALT 32 (12-78) U/L Alkaline Phosphatase 109 (45-117) U/L Total Protein 7.9 (6.4-8.2) gm/dl Albumin 2.2 L (3.4-5.0) gm/dl CSF C.neoform/gat PCR (NotDetected) CSF CMV DNA (PCR) (NotDetected) CSF Enterovirus (PCR) (NotDetected) CSF E. coli K1 (PCR) (NotDetected) CSF H. influenzae (PCR) (NotDetected) CSF HSV I (PCR) (NotDetected) CSF HSV II (PCR) (NotDetected) CSF HHV 6 (PCR) (NotDetected) CSF L.monocytogenes PCR (NotDetected) CSF N. meningitidis PCR (NotDetected) CSF Parechovirus (PCR) (NotDetected) CSF S. agalactiae (PCR) (NotDetected) CSF S. pneumoniae (PCR) (NotDetected) CSF VZV DNA (PCR) (NotDetected) 05/05/20 05/05/20 05/05/20 Range/Units 23:51 20:37 19:31 WBC (4.8-10.8) K/uL RBC (4.2-5.4) M/uL Hgb (12.0-16.0) g/dL Hct (37-47) % MCV (80-100) fL MCH (25-34) pg MCHC (32-36) g/dL RDW Std Deviation (36.4-46.3) fL RDW Coeff of Katina (11.5-14.5) % Plt Count (130-400) K/uL MPV (7.4-10.4) fL Immature Gran % (Auto) % Neut % (Auto) % Lymph % (Auto) % Tyler % (Auto) % Eos % (Auto) % Baso % (Auto) % Neut # (Auto) (1.4-6.5) K/uL Lymph # (Auto) (1.2-3.4) K/uL Tyler # (Auto) (0.11-0.59) K/uL Eos # (Auto) (0-0.5) K/uL Baso # (Auto) (0-0.2) K/uL Immature Gran # (Auto) (0.00-0.02) K/uL Sodium (136-145) mmol/L Potassium (3.5-5.1) mmol/L Chloride (98-107) mmol/L Carbon Dioxide (21-32) mmol/L Anion Gap (3-11) BUN (7-18) mg/dl Creatinine (0.6-1.2) mg/dl Est Cr Clr Drug Dosing ml/min Est GFR ( Amer) Est GFR (Non-Af Amer) BUN/Creatinine Ratio (10-20) Glucose (70-99) mg/dl POC Glucose 91 102 H (70-99) mg/dl Calcium (8.5-10.1) mg/dl Magnesium 2.2 (1.8-2.4) mg/dl Total Bilirubin (0.2-1) mg/dl Direct Bilirubin (0-0.2) mg/dl AST (15-37) U/L ALT (12-78) U/L Alkaline Phosphatase (45-117) U/L Total Protein (6.4-8.2) gm/dl Albumin (3.4-5.0) gm/dl CSF C.neoform/gat PCR (NotDetected) CSF CMV DNA (PCR) (NotDetected) CSF Enterovirus (PCR) (NotDetected) CSF E. coli K1 (PCR) (NotDetected) CSF H. influenzae (PCR) (NotDetected) CSF HSV I (PCR) (NotDetected) CSF HSV II (PCR) (NotDetected) CSF HHV 6 (PCR) (NotDetected) CSF L.monocytogenes PCR (NotDetected) CSF N. meningitidis PCR (NotDetected) CSF Parechovirus (PCR) (NotDetected) CSF S. agalactiae (PCR) (NotDetected) CSF S. pneumoniae (PCR) (NotDetected) CSF VZV DNA (PCR) (NotDetected) 05/05/20 05/05/20 Range/Units 18:05 17:16 WBC (4.8-10.8) K/uL RBC (4.2-5.4) M/uL Hgb (12.0-16.0) g/dL Hct (37-47) % MCV (80-100) fL MCH (25-34) pg MCHC (32-36) g/dL RDW Std Deviation (36.4-46.3) fL RDW Coeff of Katina (11.5-14.5) % Plt Count (130-400) K/uL MPV (7.4-10.4) fL Immature Gran % (Auto) % Neut % (Auto) % Lymph % (Auto) % Tyler % (Auto) % Eos % (Auto) % Baso % (Auto) % Neut # (Auto) (1.4-6.5) K/uL Lymph # (Auto) (1.2-3.4) K/uL Tyler # (Auto) (0.11-0.59) K/uL Eos # (Auto) (0-0.5) K/uL Baso # (Auto) (0-0.2) K/uL Immature Gran # (Auto) (0.00-0.02) K/uL Sodium (136-145) mmol/L Potassium (3.5-5.1) mmol/L Chloride (98-107) mmol/L Carbon Dioxide (21-32) mmol/L Anion Gap (3-11) BUN (7-18) mg/dl Creatinine (0.6-1.2) mg/dl Est Cr Clr Drug Dosing ml/min Est GFR ( Amer) Est GFR (Non-Af Amer) BUN/Creatinine Ratio (10-20) Glucose (70-99) mg/dl POC Glucose 102 H 106 H (70-99) mg/dl Calcium (8.5-10.1) mg/dl Magnesium (1.8-2.4) mg/dl Total Bilirubin (0.2-1) mg/dl Direct Bilirubin (0-0.2) mg/dl AST (15-37) U/L ALT (12-78) U/L Alkaline Phosphatase (45-117) U/L Total Protein (6.4-8.2) gm/dl Albumin (3.4-5.0) gm/dl CSF C.neoform/gat PCR (NotDetected) CSF CMV DNA (PCR) (NotDetected) CSF Enterovirus (PCR) (NotDetected) CSF E. coli K1 (PCR) (NotDetected) CSF H. influenzae (PCR) (NotDetected) CSF HSV I (PCR) (NotDetected) CSF HSV II (PCR) (NotDetected) CSF HHV 6 (PCR) (NotDetected) CSF L.monocytogenes PCR (NotDetected) CSF N. meningitidis PCR (NotDetected) CSF Parechovirus (PCR) (NotDetected) CSF S. agalactiae (PCR) (NotDetected) CSF S. pneumoniae (PCR) (NotDetected) CSF VZV DNA (PCR) (NotDetected) PG Care Time/CCT Total # of Minutes Spent Total Time Spent with Patient: Total time spent is greater than 50% in coordination of care (as documented) at patient's floor/unit and/or counseling patient: Coding Level of Care Code 88107 Subseq Hosp Care Lvl 3 Diagnoses Acute encephalopathy G93.40 UTI (urinary tract infection) N39.0 Leukocytosis D72.829 Acute kidney injury N17.9 Anemia D64.9 Microscopic hematuria R31.[address] of the abdomen R93.5 Right shoulder pain M25.511 GERD (gastroesophageal reflux disease) K21.9 T2DM (type 2 diabetes mellitus) E11.9 History of MRSA infection Z86.14 H/O recurrent urinary tract infection Z87.440 Depression with anxiety F41.8 Dyslipidemia E78.5 DVT prophylaxis Z29.9
[2020-05-06] MEDS: SODIUM CHLORIDE 0.9% 1000ML 1,000 ML IV SCH (13:00)
[2020-05-06 13:07] LABS: Cryptococcus neoformans/ga PCR Not Detected (NotDetected); Cytomegalovirus PCR Not Detected (NotDetected); Enterovirus PCR Not Detected (NotDetected); Escherichia coli K1 PCR Not Detected (NotDetected); Haemophilius influenzae PCR Not Detected (NotDetected); Herpes Simplex Virus 1 PCR Not Detected (NotDetected); Herpes Simplex Virus 2 PCR Not Detected (NotDetected); Human Herpes Virus 6 PCR Not Detected (NotDetected); Human Parechovirus PCR Not Detected (NotDetected); Listeria monocytogenes PCR Not Detected (NotDetected); Neisseria meningitidis PCR Not Detected (NotDetected); Streptococcus agalactiae PCR Not Detected (NotDetected); Streptococcus pneumoniae PCR Not Detected (NotDetected); Varicella Zoster Virus PCR Not Detected (NotDetected)
--- NOTE | 2020-05-06 15:53 | Nephrology Consultation ---
Date of Consultation May 06, 2020 Assessment & Plan (1) Acute kidney injury: * Initially felt to be due to UTI and dehydration in the setting of NSAID therapy * Abdominal imaging did reveal hydronephrosis * s/p cystoscopy w/ bilateral ureteral stent placement 05/05/20. Cystoscopy revealed a severely contracted bladder w/ mucosal inflammation & bleeding. Obstruction of ureteral orifices due to inflammation may have contributed to SOLEDAD * Volume status & electrolyte balance are acceptable. 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 Hardy is a 65 year old white female who is seen at the request of Kristie Mendoza PA-c for evaluation of SOLEDAD. Medical records in the EMR were reviewed today and are summarized as follows: Ms. Hardy is a resident of [facility]. She has stage III CKD (moderate impairment) w/ baseline Cr 1.1, EGFR 53 cc/min. Ms. Hardy's medical history is significant for obesity, chronic cystitis, ESBL/MRSA UTI, DM, OA and chronic anemia. Ms. Hardy was admitted to [facility] 04/27/20 for evaluation of weakness. She was diagnosed w/ Klebsiella UTI and SOLEDAD. Cr was elevated to 2.2. Ms. Hardy was evaluated by Dr. Dhaliwal of Nephrology. SOLEDAD was attributed to infection in the setting of dehydration and NSAID use. Antibiotic therapy and IV hydration was provided. NSAIDS were stopped. Abdominal CT revealed resolution of hydronephrosis following engel catheter insertion. Cr remained stable at 2.2 and electrolyte balance was acceptable. Arrangements were made for outpatient Nephrology follow up. Nephrology signed off the case 05/01/20. I was asked to reconsult on Ms. Hardy this afternoon due to persistent SOLEDAD. At the time of my evaluation Ms. Pheasant was alert but agitated. She was oriented to self only. She was unable to follow commands. Review of EMR shows that she has completed a 7 day course of IV ertapenem. There is concern that her mental status changes/agitation is a side effects of this medication. She has been evaluated by Neurology and a LP was completed earlier today. Urology has assessed the patient as well. Cystoscopy was completed 05/05/20. The bladder was found to be severely contracted w/ signs or irritation/bleeding. Bilateral ureteral stents were placed. She now has a three way engel catheter in place for CBI. Urine culture 05/03/20 was positive for yeast. Allergies Allergy/AdvReac Type Severity Reaction Status Date / Time Penicillins Allergy Unknown . Verified 04/27/20 11:04 pregabalin Allergy Unknown . Verified 04/27/20 11:04 tramadol Allergy Unknown . Verified 04/27/20 11:04 cefazolin [From [facility]] Allergy Verified 05/05/20 10:46 Home Medications Home Medications Medication Instructions Recorded Confirmed Type acetaminophen [Tylenol] 325 mg PO Q4H PRN 05/23/18 04/27/20 History aspirin 81 mg PO QAM 05/23/18 04/27/20 History baclofen 10 mg PO TID 05/23/18 04/27/20 History buspirone 10 mg PO DAILY@1600 05/23/18 04/27/20 History dicyclomine 10 mg PO Q6H PRN 05/23/18 04/27/20 History fentanyl 1 patch TRANSDERMAL Q72H 05/23/18 04/27/20 History meloxicam 15 mg PO QAM 05/23/18 04/27/20 History omeprazole 20 mg PO QAM 05/23/18 04/27/20 History oxybutynin chloride 10 mg PO HS 05/23/18 04/27/20 History sennosides-docusate sodium 1 tab PO HS 05/23/18 04/27/20 History [Senokot-S] simvastatin 20 mg PO HS 05/23/18 04/27/20 History D-Mannose 500mg Capsule 1,000 mg PO BID 09/25/19 04/27/20 History cholecalciferol (vitamin D3) 5,000 unit PO QAM 09/25/19 04/27/20 History [Vitamin D3] cyanocobalamin (vitamin B-12) 1,000 mcg IM [facility] 09/25/19 04/27/20 History vitamin B complex 1 tab PO QAM 09/25/19 04/27/20 History aripiprazole 5 mg PO QAM 04/27/20 04/27/20 History empagliflozin [Jardiance] 25 mg PO DAILY 04/27/20 04/27/20 History linagliptin [Tradjenta] 5 mg PO QAM 04/27/20 04/27/20 History mineral oil-isopropyl myristat 1 applic TOPICAL BID 04/27/20 04/27/20 History [Eucerin] naproxen 500 mg PO BID 04/27/20 04/27/20 History bupropion HCl 450 mg PO DAILY 05/04/20 05/04/20 History Patient History Medical History Acute encephalopathy Acute kidney injury Anxiety and depression Bladder spasms Bone infection Chronic pain Depression with anxiety Dyslipidemia Dysuria GERD (gastroesophageal reflux disease) Gross hematuria H/O recurrent urinary tract infection H/O: CVA (cerebrovascular accident) History of MRSA infection Hx: UTI (urinary tract infection) Incontinence Left thigh pain Lesion of bladder Morbid obesity Osteomyelitis Surgical History History of cataract surgery S/P cholecystectomy Family History Mother , age 79 of esophageal cancer Hypertension Father , in mid 60s of an [place] Myocardial infarction Social History Smoking Status: Former smoker Tobacco Type: Cigarettes Age Quit Using Tobacco: 48; Second Hand Exposure: No; Hx Alcohol Use: No Hx Substance Use: No Preferred Language: Arabic Communication Ability: Impaired Visual Impairment: No Limitations Research Editor Required: No Beliefs That Will Affect Care: None marital status: Current Living Situation: Personal Care Facility Current Living Situation Comment: [facility] current occupational status: retired Feels Safe at Home: Yes Safety Concerns: Feels Safe At This Time Assistive Devices: None Review of Systems Review of Systems: Unobtainable due to cognitive status Physical Exam Constitutional: confused, agitated Eyes: PERRL, conjunctivae normal, anicteric sclerae ENMT: external ear and nose normal, oropharynx normal Neck: trachea midline, no thyromegaly Respiratory: normal respiratory effort, lungs clear to auscultation Cardiovascular: RRR, no murmur, no edema Gastrointestinal (Abdomen): normal bowel sounds, soft, nontender, no hepatosplenomegaly Musculoskeletal: Extremities: no cyanosis Skin: no rashes, warm and dry Neurologic: awake and + confused Results & Data ([facility]) Vital Signs (Past 12 Hours) Vital Signs Temp Pulse Resp BP Pulse Ox 05/06/20 07:09 37.1 C 95 H 18 123/61 91 05/06/20 03:05 36.8 C 92 H 18 140/71 93 Laboratory Results Laboratory Tests 05/03/20 05/06/20 05/06/20 10:15 05:23 05:23 WBC 11.27 H Hgb 9.5 L Hct 30.9 L Plt Count 554 H Sodium 143 Potassium 3.7 Chloride 111 H Carbon Dioxide 25 BUN 21 H Creatinine 2.14 H Glucose 85 Urine Color Yellow Urine Appearance Turbid A Urine pH 6.5 Ur Specific [place] 1.010 Urine Protein 1+ H Urine Glucose (UA) Trace H Urine Blood 3+ H Urine Nitrite Negative Ur Leukocyte Esterase 3+ H Urine WBC (Auto) >30 H Urine RBC (Auto) >30 H U Hyaline Cast (Auto) >30 H Urine Bacteria (Auto) Negative Urine Yeast Not Reportable PG Care Time/CCT Total # of Minutes Spent Total Time Spent with Patient: Total time spent is greater than 50% in coordination of care (as documented) at patient's floor/unit and/or counseling patient: Coding Level of Care Code 46522 Inpt Consult Level 5 Diagnoses Acute kidney injury N17.9 Acute encephalopathy G93.40 UTI (urinary tract infection) N39.0 T2DM (type 2 diabetes mellitus) E11.9
[2020-05-06] MEDS: busPIRone 5 MG TAB PO SCH (16:55)
[2020-05-06] MEDS: AMPHOTERICIN B 50 MG in WATER, STERILE 1,000 ML IR SCH (17:40)
[2020-05-06] MEDS: DOCUSATE SODIUM/SENNA 50/8.6MG TAB PO SCH (21:00)
[2020-05-06] MEDS: SIMVASTATIN 20 MG TAB PO SCH (21:15)
[2020-05-06 22:28] LABS: Appearance Urine Turbid (Clear); Bilirubin Urine Negative (Negative); Blood Urine 3+ (Negative); Color Urine Yellow; Epithelial Cell Urine Auto >30 /lpf (0-5); Glucose Urine UA Negative (Negative); Ketones Urine Negative (Negative); Leukocyte Esterase Urine 3+ (Negative); Nitrite Urine Negative (Negative); Protein Urine 1+ (Negative); Specific Gravity Urine 1.008 (1.000-1.030); Urobilinogen Urine Negative (Negative); WBC Urine Automated >30 /hpf (0-5); pH Urine 6.5 (4.5-7.5)
[2020-05-06 22:56] LABS: Bacteria Urine Automated 1+ (Negative)
[2020-05-06 22:57] LABS: Cast Urine Automated 0 /lpf (0-5)
[2020-05-07] MEDS: SODIUM CHLORIDE 0.9% 1000ML 1,000 ML IV SCH ×2 (00:46→13:55)
[2020-05-07 07:02] LABS: Hematocrit (blood only) 29.6 % (37-47); Mean Corpuscular Hemoglobin 26.1 pg (25-34); Mean Corpuscular Hgb Conc 30.4 g/dL (32-36); Mean Corpuscular Volume 85.8 fL (80-100); Platelet Count 478 K/uL (130-400); RDW Coefficient of Variation 20.4 % (11.5-14.5); RDW Standard Deviation 60.2 fL (36.4-46.3); Red Blood Count 3.45 M/uL (4.2-5.4)
[2020-05-07 07:33] LABS: Albumin Level 2.1 gm/dl (3.4-5.0); BUN Creatinine Ratio 9.4 (10-20); Calcium 8.3 mg/dl (8.5-10.1); Creatinine Clr Calc Pharmacy 39.2 ml/min; Est GFR (African American) 28.8; Est GFR (Non-African American) 24.9; Potassium 3.7 mmol/L (3.5-5.1)
[2020-05-07 07:36] LABS: Albumin Globulin Ratio 0.4 (0.9-2); Bilirubin,Total 0.5 mg/dl (0.2-1); Globulin 5.4 gm/dl (2.5-4.0); Total Protein 7.5 gm/dl (6.4-8.2)
--- NOTE | 2020-05-07 08:22 | Urology Progress Note ---
Date of Service May 07, 2020 Assessment & Plan (1) Microscopic hematuria: (2) Abnormal CT of the abdomen: (3) UTI (urinary tract infection): (4) Acute kidney injury: 65 year-old female patient admitted with acute kidney injury, bilateral hydronephrosis, leukocytosis, and urinary tract infection. - POD #2 cystoscopy with bilateral retrograde pyelogram and bilateral stent placement, signs of mild irritation and bleeding from fissures within the bladder lining. - Patient remains afebrile, creatinine and white count continue to improve. - Urine culture positive for Klebsiella, Ertapenem completed after 7 day course as this was felt to contribute to confusion. - Fungal urine culture 05/01 with yeast, not sonja - given yeast and current bilateral stents, Amphotericin B bladder irrigations started 05/06, recommend total of 5 days. - Preliminary blood cultures negative after 48 hours. - Continue three way engel catheter. - Continue with supportive care. - Patient undergoing neurology evaluation, lumbar puncture performed yesterday. - Continue to follow while inpatient. Admission and Anticipated Discharge Date Admission Date: April 27, 2020 Subjective POD #2 cystoscopy with bilateral retrograde pyelogram and bilateral stent placement. Examined this morning, patient appears comfortable and responsive to verbal stimuli. Does continue to have some garbled speech. Denies abdominal/flank pain. No nausea or vomiting. Denies fevers or chills. Three-way engel catheter intact with Amphotericin B bladder irrigation infusing. Urine cloudy yellow with some sediment. Chart review: Afebrile Wbc 10.50 (previously 11.27) Hgb 9.0 Creatinine 2.07 (previously 2.14) Urine culture 04/27 positive for Klebsiella, Ertapenem completed after 7 day course, ID consult in place. Repeat urine culture 05/01 with yeast, not sonja. Repeat fungal urine culture 05/03 with 5,000 cfu gram negative without identification or sensitivities. Preliminary blood culture no growth after 48 hours. Urine cytology negative for high-grade urothelial carcinoma Repeat renal ultrasound 05/04 - IMPRESSION: 1. No right hydronephrosis. 2. Improvement in the fullness within the left renal pelvis. 3. Bladder is decompressed by Engel catheter. Denies additional concerns. Review of Systems Constitutional: as per Subjective / HPI Gastrointestinal: as per Subjective / HPI Genitourinary: as per Subjective / HPI Neurologic: as per Subjective / HPI Psychiatric: as per Subjective / HPI Physical Exam Constitutional: cooperative and comfortable; no acute distress and not ill appearing ENMT: Ears: no hearing impairment Neck: trachea midline Respiratory: normal respiratory effort and able to speak in complete sentences; no respiratory distress and no audible wheezes Cardiovascular: Extremities: no edema Gastrointestinal (Abdomen): Inspection/Auscultation: abdomen normal to inspection; abdomen not distended Percussion/Palpation: abdomen soft; abdomen nontender and no guarding Skin: No visible rashes, lesions, or wounds. Psychiatric: Orientation: alert, oriented to person and cooperative; + not oriented to place and + not oriented to time Genitourinary: no CVA tenderness Three way engel catheter intact, Amphotericin B bladder irrigation infusing into indwelling engel port. Urine cloudy yellow with some sediment. Results & Data ([facility]) Vital Signs (Past 12 Hours) Vital Signs Temp Pulse Resp BP BP Pulse Ox 05/07/20 08:14 36.7 C 93 H 18 107/65 93 05/06/20 23:51 36.8 C 86 18 137/82 93 PG Care Time/CCT Total # of Minutes Spent Total Time Spent with Patient: Total time spent is greater than 50% in coordination of care (as documented) at patient's floor/unit and/or counseling patient: Coding Level of Care Code 95987 Subseq Hosp Care Lvl 2 Diagnoses Microscopic hematuria R31.[address] of the abdomen R93.5 UTI (urinary tract infection) N39.0 Acute kidney injury N17.9
[2020-05-07] MEDS: ASPIRIN 81 MG ECTAB PO SCH (08:38)
[2020-05-07] MEDS: CHOLECALCIFEROL 1,000 UNITS 25 MCG TAB PO SCH (08:38)
[2020-05-07] MEDS: ADVANCED PROBIOTIC 1250 MG CAPSULE PO SCH (08:39)
[2020-05-07] MEDS: VITAMIN B COMPLEX TAB PO SCH (08:39)
[2020-05-07] MEDS: buPROPion XL 300 MG TABCR PO SCH (08:39)
[2020-05-07] MEDS: FERROUS GLUCONATE 324 MG TAB PO SCH (08:39)
[2020-05-07] MEDS: INSULIN GLARGINE SOLOSTAR 100 UNITS/ML 3 ML PEN SC SCH ×2 (08:53→22:10)
[2020-05-07] MEDS: INSULIN ASPART 100 UNITS/ML 3 ML PEN SC SCH ×4 (08:55→22:09)
--- NOTE | 2020-05-07 09:56 | Hospitalist Progress Note ---
Date of Service May 07, 2020 Assessment & Plan (1) Acute encephalopathy: Worsening confusion, lip smacking/tongue movements appearing as toxic encephalopathy on 05/05. Treated for Klebsiella UTI with Ertapenem x 7 days --> Of note, patient had been on 1,000mg daily Ertapenem and CrCl only slightly above cutoff for reduced dosing as noted by ID provider during video conference yesterday ABG with Po2 low, pH normal. No white count. No further fevers MARKEDLY IMPROVED, about at baseline currently Very likely could be side effects of ertapenem which has since been discontinued * CT Head w/o acute findings * Neurology consulted -- appreciate rec's * s/p LP -- clot in tap and only able to obtain biofire PCR which was negative. Gram stain with few polys, no organisms. Cx pending * Continue to hold home Abilify -- can trail resuming now that cognitive status improved but will hold off until tomorrow to ensure completely resolved (2) UTI (urinary tract infection): Klebsiella UTI * Completed 7-day course of ertapenem * BC no growth, fungal culture ordered by urology (not to treat per ID). Repeat urine cx with gram negative bacilli, CFU 5000CFU no identification/sensitivities to follow * Per urology - continue supportive care, maintain Engel catheter for now -- will discuss about discontinuing * ID consulted -- rec to discontinue Ertapenem as patient received 7 days total IV (not renally dosed) as this could have contributed to worsened confusion since Monday. Rec not treating yeast POD#2 s/p bilateral stents with Dr. Toney. Mild irritation and bleeding from fissures within bladder noted. Biopsy negative for malignancy but does show inflammation * Continue 3 way engel catheter and CBI at slow rate * Given yeast on recent cx and concern for migration to kidneys as per Urology, will move forward with ampho B for 5 days (on day 2 of therapy) Of note --> staffing to be alerted at [facility] about /hygiene to prevent repeat infections in the future (3) Leukocytosis: * WBC essentially unchanged and also with worsening thrombocytosis-could be reactive to anemia versus infection * Increased delirium possibly related to ertapenem as above * WBC now upper normal limit * Blood cultures negative * Of note, Patient has a history of septic shoulder in the left. She does have some pain in her right shoulder but it's not overly impressive in presentation for a septic joint, however per patient's daughter her left shoulder sepsis was subtle in presentation. XR of the shoulder earlier in the stay showed chronic rotator cuff injury and degenerative changes but no acute abnormality. If workup remains unrevealing could consider MRI although at this point her kidney function would not allow for contrast. (4) Acute kidney injury: * In setting of NSAID use (confirmed taking both meloxicam and naproxen). Hold NSAIDs and aspirin. Was also on Jardiance which can cause java golden gate developer to rise * NSS @ 80cc/hr * Nephrology on consult -- asked to re-eval today. Likely obstruction of ureteral orifices due to inflammation contributed to SOLEDAD * US Renal with improvement of fullness L renal pelvis * s/p b/l stents as above on 05/[address] Toney * Cr continuing to improve slowly, 2.07 * Follow BMP (5) Anemia: * Iron deficient -- Iron is low at 16, transferrin 139, ferritin 238 - initiated iron supplementation orally and could consider giving IV iron while hospitalized * Likely from continue microscopic hematuria, unaware of most recent colonoscopy/egd but did think she had cologuard/similar. * Rec'd having follow up outpt given father w hx colon ca (arguement between daughter and pt regarding cause of , but reported by daughter as wt loss from 350lb to 180 prior to his passing) * H/h 9.0/29.6 although patient continues to be on IVF * Fecal occult blood negative * Follow CBC (6) Microscopic hematuria: * UA with RBC positive for at least 1 year, CT equivocal for right renal pelvis hemorrhage, current anemia and acute kidney injury. * Repeat imaging with US showing improvement * Cystoscopy with bleeding fissues noted, biopsy without malignancy * Urine cytology added (7) Abnormal CT of the abdomen: * As above for microscopic hematuria. (8) Right shoulder pain: * XR right shoulder without obvious acute change but does show chronic rotator cuff injury (9) GERD (gastroesophageal reflux disease): * not on PPI at home and with renal failure here--> dc PPI (10) T2DM (type 2 diabetes mellitus): * HbA1C 8.3 * Hold linagliptin and empagliflozin and would not restart Jardiance given elevated java golden gate developer and UTI. * Continue Lantus 10 units twice daily, NovoLog sliding scale ACHS * BSGs stable (11) History of MRSA infection: * Contact precautions -- repeat MRSA nasal swab per daughter request, + (12) H/O recurrent urinary tract infection: * Recommend not restarting Jardiance on discharge as this will significantly increase her risk of urinary tract infections. (13) Depression with anxiety: * Continue home medications except noted that bupropion is only prescribed 300 mg of the extended release once daily, not 450 mg-this dosing was changed here * Continue home buspirone --> changed to 5mg daily as she had been on outpatient * Holding Abilify d/t above, could consider resuming tomorrow (14) Dyslipidemia: * Resumed home simvastatin now as no longer on daptomycin (15) DVT prophylaxis: * SCDs. * No chemical prophylaxis due hematuria/renal hemorrhage as above Dispo: Patient resident at [facility]. CM following. Likely to remain inpatient until completed with Ampho B (Monday) Admission and Anticipated Discharge Date Admission Date: April 27, 2020 Supervising Physician Co-Signing Physician Notes PA Supervision Note: I did not personally see or examine the patient today, but I verified all del rosario points of RUIZ Mendoza's assessment and plan with the following exceptions/additions: None Subjective Patient evaluated early this afternoon with daughter at bedside. Patient MARKEDLY improved cognitively. Still with some garbled speech, but back to her baseline self. Patient without further myoclonic jerking or lip smacking, and was joking in the room. She stated she had been having quite vivid nightmares over the past several days and hallucinations and inquired about cause. Given LP negative biofire but awaiting culture thus far, it appears Ertapenem likely the culprit. Discussed continuing the ampho B instillations and will need another 3 days but hopeful given significant cognitive improvement, slow but sure Cr improvement, she will be ready to be discharged back to [facility]. When reviewing hygiene/care, she states some of the nursing aides at [facility] will help her and will wipe her behind first and then come to the front, some do it the opposite way, and then some wipe from back to front in one motion. Discussed we will reach out to them and include in note to provide additional education on the importance of proper wiping given her recurrent UTIs. She does also endorse she does not drink too much water and sticks mainly to her iced tea. She is aware this is a diuretic and we talked about cutting back or including more water to help keep her kidneys happy. Denies melena or hematochezia. Does not believe she has had a colonoscopy in the past but maybe did a Cologuard type of testing. She does note her father had a history of colon cancer. Daughter updated and very happy with improvement so far. Questions/concerns addressed at this time. Review of Systems Review of Systems: All systems reviewed & are unremarkable except as noted in HPI & below Physical Exam Constitutional: WD/WN, vitals as above + obese; no acute distress Eyes: + anicteric sclerae and PERRL Neck: normal visual inspection Respiratory: normal respiratory effort, lungs clear to auscultation Auscultation: + diminished lung sounds Cardiovascular: RRR, no murmur, no edema (baseline lymphedema) Gastrointestinal (Abdomen): normal bowel sounds, soft, nontender, no hepatosplenomegaly Musculoskeletal: Head/Neck/Chest: normocephalic, head atraumatic and neck supple Skin: L skin fold ulceration, improving L hand IV infiltrated -- paused IVF and asked CUSTOM FURRIER to alert RN to have IV changed. no evidence of streaking noted, non-tender Neurologic: moves all extremities and awake Psychiatric: Orientation: alert, oriented to person, oriented to place, or iented to time and cooperative Genitourinary: engel with cloudy/needleworker urine draining Lymphatic: no cervical or axillary lymphadenopathy Results & Data Results & Data ([facility]) Vital Signs (Past 12 Hours) Vital Signs Temp Pulse Resp BP BP Pulse Ox 05/07/20 08:14 36.7 C 93 H 18 107/65 93 05/06/20 23:51 36.8 C 86 18 137/82 93 Laboratory Results 05/07/20 05/07/20 05/07/20 Range/Units 08:11 06:07 06:07 WBC 10.50 (4.8-10.8) K/uL RBC 3.45 L (4.2-5.4) M/uL Hgb 9.0 L (12.0-16.0) g/dL Hct 29.6 L (37-47) % MCV 85.8 (80-100) fL MCH 26.1 (25-34) pg MCHC 30.4 L (32-36) g/dL RDW Std Deviation 60.2 H (36.4-46.3) fL RDW Coeff of Katina 20.4 H (11.5-14.5) % Plt Count 478 H (130-400) K/uL MPV 9.0 (7.4-10.4) fL Sodium 144 (136-145) mmol/L Potassium 3.7 (3.5-5.1) mmol/L Chloride 113 H (98-107) mmol/L Carbon Dioxide 24 (21-32) mmol/L Anion Gap 6.0 (3-11) BUN 19 H (7-18) mg/dl Creatinine 2.07 H (0.6-1.2) mg/dl Est Cr Clr Drug Dosing 39.2 ml/min Est GFR ( Amer) 28.8 Est GFR (Non-Af Amer) 24.9 BUN/Creatinine Ratio 9.4 L (10-20) Glucose 78 (70-99) mg/dl POC Glucose 83 (70-99) mg/dl Calcium 8.3 L (8.5-10.1) mg/dl Total Bilirubin 0.5 (0.2-1) mg/dl AST 34 (15-37) U/L ALT 33 (12-78) U/L Alkaline Phosphatase 103 (45-117) U/L Total Protein 7.5 (6.4-8.2) gm/dl Albumin 2.1 L (3.4-5.0) gm/dl Globulin 5.4 H (2.5-4.0) gm/dl Albumin/Globulin Ratio 0.4 L (0.9-2) Urine Color Urine Appearance (Clear) Urine pH (4.5-7.5) Ur Specific [place] (1.000-1.030) Urine Protein (Negative) Urine Glucose (UA) (Negative) Urine Ketones (Negative) Urine Blood (Negative) Urine Nitrite (Negative) Urine Bilirubin (Negative) Urine Urobilinogen (Negative) Ur Leukocyte Esterase (Negative) Urine WBC (Auto) (0-5) /hpf Urine RBC (Auto) (0-4) /hpf U Hyaline Cast (Auto) (0-5) /lpf U Epithel Cells (Auto) (0-5) /lpf Urine Bacteria (Auto) (Negative) Urine Yeast CSF C.neoform/gat PCR (NotDetected) CSF CMV DNA (PCR) (NotDetected) CSF Enterovirus (PCR) (NotDetected) CSF E. coli K1 (PCR) (NotDetected) CSF H. influenzae (PCR) (NotDetected) CSF HSV I (PCR) (NotDetected) CSF HSV II (PCR) (NotDetected) CSF HHV 6 (PCR) (NotDetected) CSF L.monocytogenes PCR (NotDetected) CSF N. meningitidis PCR (NotDetected) CSF Parechovirus (PCR) (NotDetected) CSF S. agalactiae (PCR) (NotDetected) CSF S. pneumoniae (PCR) (NotDetected) CSF VZV DNA (PCR) (NotDetected) 05/06/20 05/06/20 05/06/20 Range/Units Unknown 22:16 20:45 WBC (4.8-10.8) K/uL RBC (4.2-5.4) M/uL Hgb (12.0-16.0) g/dL Hct (37-47) % MCV (80-100) fL MCH (25-34) pg MCHC (32-36) g/dL RDW Std Deviation (36.4-46.3) fL RDW Coeff of Katina (11.5-14.5) % Plt Count (130-400) K/uL MPV (7.4-10.4) fL Sodium (136-145) mmol/L Potassium (3.5-5.1) mmol/L Chloride (98-107) mmol/L Carbon Dioxide (21-32) mmol/L Anion Gap (3-11) BUN (7-18) mg/dl Creatinine (0.6-1.2) mg/dl Est Cr Clr Drug Dosing ml/min Est GFR ( Amer) Est GFR (Non-Af Amer) BUN/Creatinine Ratio (10-20) Glucose (70-99) mg/dl POC Glucose 72 (70-99) mg/dl Calcium (8.5-10.1) mg/dl Total Bilirubin (0.2-1) mg/dl AST (15-37) U/L ALT (12-78) U/L Alkaline Phosphatase (45-117) U/L Total Protein (6.4-8.2) gm/dl Albumin (3.4-5.0) gm/dl Globulin (2.5-4.0) gm/dl Albumin/Globulin Ratio (0.9-2) Urine Color Yellow Urine Appearance Turbid A (Clear) Urine pH 6.5 (4.5-7.5) Ur Specific [place] 1.008 (1.000-1.030) Urine Protein 1+ H (Negative) Urine Glucose (UA) Negative (Negative) Urine Ketones Negative (Negative) Urine Blood 3+ H (Negative) Urine Nitrite Negative (Negative) Urine Bilirubin Negative (Negative) Urine Urobilinogen Negative (Negative) Ur Leukocyte Esterase 3+ H (Negative) Urine WBC (Auto) >30 H (0-5) /hpf Urine RBC (Auto) 10-30 H (0-4) /hpf U Hyaline Cast (Auto) 0 (0-5) /lpf U Epithel Cells (Auto) >30 H (0-5) /lpf Urine Bacteria (Auto) 1+ H (Negative) Urine Yeast Not Reportable CSF C.neoform/gat PCR Not Detected (NotDetected) CSF CMV DNA (PCR) Not Detected (NotDetected) CSF Enterovirus (PCR) Not Detected (NotDetected) CSF E. coli K1 (PCR) Not Detected (NotDetected) CSF H. influenzae (PCR) Not Detected (NotDetected) CSF HSV I (PCR) Not Detected (NotDetected) CSF HSV II (PCR) Not Detected (NotDetected) CSF HHV 6 (PCR) Not Detected (NotDetected) CSF L.monocytogenes PCR Not Detected (NotDetected) CSF N. meningitidis PCR Not Detected (NotDetected) CSF Parechovirus (PCR) Not Detected (NotDetected) CSF S. agalactiae (PCR) Not Detected (NotDetected) CSF S. pneumoniae (PCR) Not Detected (NotDetected) CSF VZV DNA (PCR) Not Detected (NotDetected) 05/06/20 05/06/20 Range/Units 17:10 12:04 WBC (4.8-10.8) K/uL RBC (4.2-5.4) M/uL Hgb (12.0-16.0) g/dL Hct (37-47) % MCV (80-100) fL MCH (25-34) pg MCHC (32-36) g/dL RDW Std Deviation (36.4-46.3) fL RDW Coeff of Katina (11.5-14.5) % Plt Count (130-400) K/uL MPV (7.4-10.4) fL Sodium (136-145) mmol/L Potassium (3.5-5.1) mmol/L Chloride (98-107) mmol/L Carbon Dioxide (21-32) mmol/L Anion Gap (3-11) BUN (7-18) mg/dl Creatinine (0.6-1.2) mg/dl Est Cr Clr Drug Dosing ml/min Est GFR ( Amer) Est GFR (Non-Af Amer) BUN/Creatinine Ratio (10-20) Glucose (70-99) mg/dl POC Glucose 123 H 100 H (70-99) mg/dl Calcium (8.5-10.1) mg/dl Total Bilirubin (0.2-1) mg/dl AST (15-37) U/L ALT (12-78) U/L Alkaline Phosphatase (45-117) U/L Total Protein (6.4-8.2) gm/dl Albumin (3.4-5.0) gm/dl Globulin (2.5-4.0) gm/dl Albumin/Globulin Ratio (0.9-2) Urine Color Urine Appearance (Clear) Urine pH (4.5-7.5) Ur Specific [place] (1.000-1.030) Urine Protein (Negative) Urine Glucose (UA) (Negative) Urine Ketones (Negative) Urine Blood (Negative) Urine Nitrite (Negative) Urine Bilirubin (Negative) Urine Urobilinogen (Negative) Ur Leukocyte Esterase (Negative) Urine WBC (Auto) (0-5) /hpf Urine RBC (Auto) (0-4) /hpf U Hyaline Cast (Auto) (0-5) /lpf U Epithel Cells (Auto) (0-5) /lpf Urine Bacteria (Auto) (Negative) Urine Yeast CSF C.neoform/gat PCR (NotDetected) CSF CMV DNA (PCR) (NotDetected) CSF Enterovirus (PCR) (NotDetected) CSF E. coli K1 (PCR) (NotDetected) CSF H. influenzae (PCR) (NotDetected) CSF HSV I (PCR) (NotDetected) CSF HSV II (PCR) (NotDetected) CSF HHV 6 (PCR) (NotDetected) CSF L.monocytogenes PCR (NotDetected) CSF N. meningitidis PCR (NotDetected) CSF Parechovirus (PCR) (NotDetected) CSF S. agalactiae (PCR) (NotDetected) CSF S. pneumoniae (PCR) (NotDetected) CSF VZV DNA (PCR) (NotDetected) PG Care Time/CCT Total # of Minutes Spent Total Time Spent with Patient: Total time spent is greater than 50% in coordination of care (as documented) at patient's floor/unit and/or counseling patient: Coding Level of Care Code 02509 Subseq Hosp Care Lvl 3 Diagnoses Acute encephalopathy G93.40 UTI (urinary tract infection) N39.0 Leukocytosis D72.829 Acute kidney injury N17.9 Anemia D64.9 Microscopic hematuria R31.[address] of the abdomen R93.5 Right shoulder pain M25.511 GERD (gastroesophageal reflux disease) K21.9 T2DM (type 2 diabetes mellitus) E11.9 History of MRSA infection Z86.14 H/O recurrent urinary tract infection Z87.440 Depression with anxiety F41.8 Dyslipidemia E78.5 DVT prophylaxis Z29.9
--- NOTE | 2020-05-07 10:42 | Nephrology Progress Note ---
Date of Service May 07, 2020 Assessment & Plan (1) Acute kidney injury: * SOLEDAD was initially felt to be due to UTI and dehydration in the setting of NSAID therapy * Abdominal imaging did reveal hydronephrosis * s/p cystoscopy w/ bilateral ureteral stent placement 05/05/20. Cystoscopy revealed a severely contracted bladder w/ mucosal inflammation & bleeding. Obstruction of ureteral orifices due to inflammation may have contributed to SOLEDAD * Cr now trending down (Cr 2.26 --> 2.0). Unable to assess UO due to CBI. Volume status & electrolyte balance are acceptable. No acute indication for ANIMAL GENETICIST at this time * Monitor PRP (2) Acute encephalopathy: * Possible side effect of ertapenem therapy * Await LP negative for viral or bacterial infection (3) UTI (urinary tract infection): * 04/27/20 urine cx + for Klebsiella (PCN sensitive) and yeast * Completed 7 days IV ertapenem therapy * Now on amphotericin CBI (4) T2DM (type 2 diabetes mellitus): * Recommend avoiding SGLT2 therapy (empagliflozin) as outpatient due to h/o recurrent UTI and yeast infections Admission and Anticipated Discharge Date Admission Date: April 27, 2020 Subjective Ms. Hardy was seen & examined in her hospital room this morning. At the time of my evaluation she was alert and oriented to self and place. She is now able to follow one step commands. She denies fever or abdominal discomfort Review of Systems Constitutional: + weakness; no fever Eyes: no problem reported Ear, Nose, Mouth, Throat: no problem reported Respiratory: no dyspnea Cardiovascular: no chest pain Gastrointestinal: no abdominal pain Musculoskeletal: no back pain Physical Exam Eyes: PERRL, conjunctivae normal, anicteric sclerae ENMT: external ear and nose normal, oropharynx normal Neck: trachea midline, no thyromegaly Respiratory: normal respiratory effort, lungs clear to auscultation Cardiovascular: RRR, no murmur, no edema Gastrointestinal (Abdomen): normal bowel sounds, soft, nontender, no hepatos plenomegaly Musculoskeletal: Extremities: no cyanosis Skin: no rashes, warm and dry Neurologic: awake and + confused Results & Data ([facility]) Vital Signs (Past 12 Hours) Vital Signs Temp Pulse Resp BP BP Pulse Ox 05/07/20 08:14 36.7 C 93 H 18 107/65 93 10/21/20 23:51 36.8 C 86 18 137/82 93 Laboratory Results Laboratory Tests 05/07/20 05/07/20 06:07 06:07 WBC 10.50 Hgb 9.0 L Hct 29.6 L Plt Count 478 H Sodium 144 Potassium 3.7 Chloride 113 H Carbon Dioxide 24 BUN 19 H Creatinine 2.07 H Glucose 78 PG Care Time/CCT Total # of Minutes Spent Total Time Spent with Patient: Total time spent is greater than 50% in coordination of care (as documented) at patient's floor/unit and/or counseling patient: Coding Level of Care Code 51889 Subseq Hosp Care Lvl 3 Diagnoses Acute kidney injury N17.9 Acute encephalopathy G93.40 UTI (urinary tract infection) N39.0 T2DM (type 2 diabetes mellitus) E11.9
[2020-05-07] MEDS: AMPHOTERICIN B 50 MG in WATER, STERILE 1,000 ML IR SCH (17:43)
[2020-05-07] MEDS: busPIRone 5 MG TAB PO SCH (17:44)
[2020-05-07] MEDS: SIMVASTATIN 20 MG TAB PO SCH (22:20)
[2020-05-07] MEDS: DOCUSATE SODIUM/SENNA 50/8.6MG TAB PO SCH (22:22)
[2020-05-08] MEDS: SODIUM CHLORIDE 0.9% 1000ML 1,000 ML IV SCH ×2 (01:24→21:28)
[2020-05-08 06:35] LABS: Hematocrit (blood only) 28.5 % (37-47); Hemoglobin 8.6 g/dL (12.0-16.0); Mean Corpuscular Hemoglobin 26.1 pg (25-34); Mean Corpuscular Hgb Conc 30.2 g/dL (32-36); Mean Corpuscular Volume 86.6 fL (80-100); Mean Platelet Volume 9.2 fL (7.4-10.4); Platelet Count 478 K/uL (130-400); RDW Coefficient of Variation 20.9 % (11.5-14.5); RDW Standard Deviation 64.2 fL (36.4-46.3); Red Blood Count 3.29 M/uL (4.2-5.4); White Blood Count 8.81 K/uL (4.8-10.8)
[2020-05-08 07:21] LABS: Calcium 8.2 mg/dl (8.5-10.1); Creatinine Clr Calc Pharmacy 39.3 ml/min; Potassium 3.5 mmol/L (3.5-5.1)
[2020-05-08] MEDS: INSULIN ASPART 100 UNITS/ML 3 ML PEN SC SCH ×4 (10:17→21:54)
[2020-05-08] MEDS: FERROUS GLUCONATE 324 MG TAB PO SCH (10:22)
[2020-05-08] MEDS: ADVANCED PROBIOTIC 1250 MG CAPSULE PO SCH (10:23)
[2020-05-08] MEDS: ASPIRIN 81 MG ECTAB PO SCH (10:23)
[2020-05-08] MEDS: CHOLECALCIFEROL 1,000 UNITS 25 MCG TAB PO SCH (10:23)
--- NOTE | 2020-05-08 10:23 | Neurology Progress Note ---
Date of Service May 08, 2020 Assessment & Plan (1) Abnormal involuntary movements: (2) Acute encephalopathy: (3) Slurred speech: (4) Hallucinations: (5) Depression with anxiety: This patient had an acute neurologic change May 03. Her symptoms consisted of confusion and slurred speech as well as visual and auditory hallucinations, itchy skin without rash, numbness in the feet, and twitching of the limbs with tremor as well as lip smacking and tongue movements. There is some nystagmus as well. She feels that is she is having something caught in her throat and has dry mouth. Overall she appeared as if she had an acute "toxic" presentation. the movements are unusual and consist of some myoclonic jerks and lip-smacking/tongue movements reminiscent to me of a tardive dyskinesia or chorea. She has action tremor bilaterally. Her speech is somewhat slurred ( although worse without her dentures in) and she has an underlying mild dementia at probably as well. She was on ertapenem from April 28 through May 04 in the afternoon. This antibiotic can give agitation / confusion, itchiness, numbness, throat issues, tremors, twitching, spasms, and jerking of the limbs. I believe this antibiotic was responsible for her neurologic syndrome, although it took several days to improve. MRI of the brain showed no significant changes April 29 with no stroke. She does have underlying generalized atrophy. Clinically she is probably back to baseline. Recommendations: 1. Awaiting lumbar puncture results. 2. I can follow as an outpatient if desired otherwise I have no further recommendations. Overall, I spent a total of 25 minutes with this case including review of records, direct evaluation the patient at bedside, and discussion of the case with Dr. Hough. Admission and Anticipated Discharge Date Admission Date: April 27, 2020 Subjective Patient is calm today and in no pain or headache. She is not dizzy and does not have any dry mouth or throat issues. She is afebrile with normal vital signs. Results & Data ([facility]) Vital Signs (Past 12 Hours) Vital Signs Temp Pulse Resp BP BP Pulse Ox 05/08/20 07:31 36.4 C L 77 18 102/62 91 05/07/20 23:22 37 C 82 20 120/67 92 Exam (Neuro) Physical Exam: She is awake and alert. Speech is dysarthric because she does not have her full dentures in. She is quite understandable and making sense. Her speech is calm and she is not agitated. She has no abnormal involuntary movements including no tongue or lip movements or myoclonic jerks. Strength is symmetrical in the limbs. There is no facial droop and tongue is midline. PG Care Time/CCT Total # of Minutes Spent Total Time Spent with Patient: Total time spent is greater than 50% in coordination of care (as documented) at patient's floor/unit and/or counseling patient: Coding Level of Care Code 69628 Subseq Hosp Care Lvl 2 Diagnoses Abnormal involuntary movements R25.9 Acute encephalopathy G93.40 Slurred speech R47.81 Hallucinations R44.3 Depression with anxiety F41.8 Time Spent (min) 25
[2020-05-08] MEDS: INSULIN GLARGINE SOLOSTAR 100 UNITS/ML 3 ML PEN SC SCH ×2 (10:24→21:55)
[2020-05-08] MEDS: VITAMIN B COMPLEX TAB PO SCH (10:25)
[2020-05-08] MEDS: buPROPion XL 300 MG TABCR PO SCH (10:25)
--- NOTE | 2020-05-08 11:13 | Urology Progress Note ---
Date of Service May 01, 2020 Assessment & Plan (1) Acute kidney injury: (2) UTI (urinary tract infection): (3) Microscopic hematuria: (4) Abnormal CT of the abdomen: 65 yo F POD #3 cystoscopy with bilateral retrograde pyelogram and bilateral stent placement. - Patient remains afebrile, creatinine and white blood count continue to improve. - Urine culture positive for Klebsiella, Ertapenem discontinued after 7 day course as this was felt to contribute to confusion. - Amphotericin B bladder irrigations started 05/06, recommend total of 5 days of treatment. - Continue three way Engel catheter. - Continue with supportive care. - Patient undergoing neurology evaluation, lumbar puncture pending. - Will continue to follow peripherally while inpatient. - Plan to follow-up outpatient with our service in 3-4 weeks post discharge. Admission and Anticipated Discharge Date Admission Date: April 27, 2020 Subjective POD #3 cystoscopy with bilateral retrograde pyelogram and bilateral stent placement. Pt examined this morning at bedside. Awake, sitting up in bed, appears comfortable and just completed breakfast. She is responsive to verbal stimuli, answering questions. Does continue to have some mild garbled speech, full dentures not in place at this time. Denies abdominal or flank pain. No nausea or vomiting. Denies fevers or chills. Three-way engel catheter intact, patent, with Amphotericin B bladder irrigation infusing. Urine light yellow, cloudy with some sediment. No additional concerns today. Chart review: Afebrile. Creatinine 2.06, WBC 8.81, Hgb 8.6. Review of Systems Constitutional: as per Subjective / HPI Gastrointestinal: as per Subjective / HPI Genitourinary: as per Subjective / HPI Physical Exam Constitutional: + morbidly obese; no acute distress and not ill appearing Respiratory: normal respiratory effort and able to speak in complete sentences; no respiratory distress and no labored breathing Cardiovascular: Extremities: no pedal edema Gastrointestinal (Abdomen): Inspection/Auscultation: abdomen normal to inspection; abdomen not distended Percussion/Palpation: abdomen soft; abdomen nontender and no guarding Musculoskeletal: Head/Neck/Chest: normocephalic and head atraumatic Neurologic: moves all extremities and awake Psychiatric: Alert, awake, oriented to person, place and time. Speech mildly garbled, full dentures not in place at this time Genitourinary: no CVA tenderness Three-way engel catheter intact, patent, with Amphotericin B bladder irrigation infusing. Urine clear yellow, cloudy with some sediment. Results & Data ([facility]) Vital Signs (Past 12 Hours) Vital Signs Temp Pulse Pulse Resp BP BP Pulse Ox 05/01/20 07:52 36.5 C 86 19 106/57 L 96 05/01/20 07:20 78 05/01/20 04:03 36.7 C 83 18 121/77 93 05/01/20 00:00 36.6 C 83 18 125/73 94 PG Care Time/CCT Total # of Minutes Spent Total Time Spent with Patient: Total time spent is greater than 50% in coordination of care (as documented) at patient's floor/unit and/or counseling patient: Coding Level of Care Code 45002 Subseq Hosp Care Lvl 2 Diagnoses Acute kidney injury N17.9 UTI (urinary tract infection) N39.0 Microscopic hematuria R31.[address] of the abdomen R93.5
--- NOTE | 2020-05-08 11:18 | Nephrology Progress Note ---
Date of Service May 08, 2020 Assessment & Plan (1) Acute kidney injury: * SOLEDAD was initially felt to be due to UTI and dehydration in the setting of NSAID therapy * Abdominal imaging did reveal hydronephrosis * s/p cystoscopy w/ bilateral ureteral stent placement 05/05/20. Cystoscopy revealed a severely contracted bladder w/ mucosal inflammation & bleeding. Obstruction of ureteral orifices due to inflammation may have contributed to SOLEDAD * Cr now trending down (Cr 2.26 --> 2.0). Unable to assess UO due to CBI. Volume status & electrolyte balance are acceptable. No acute indication for FENCE BU[employer]DER at this time * Monitor PRP * No further Nephrology evaluation needed at this time. Will sign off. Please call if further assistance needed (2) Acute encephalopathy: * Possible side effect of ertapenem therapy * LP negative for viral or bacterial infection (3) UTI (urinary tract infection): * 04/27/20 urine cx + for Klebsiella (PCN sensitive) and yeast * Completed 7 days IV ertapenem therapy * Now on amphotericin CBI (yeast) (4) T2DM (type 2 diabetes mellitus): * Recommend avoiding SGLT2 therapy (empagliflozin) as outpatient due to h/o recurrent UTI and yeast infections Admission and Anticipated Discharge Date Admission Date: April 27, 2020 Subjective Ms. Hardy was seen & examined in her hospital room this morning. She awakens to voice and is oriented x3. She denied fever, dyspnea or uremic symptoms Review of Systems Constitutional: + weakness; no fever Eyes: no problem reported Ear, Nose, Mouth, Throat: no problem reported Respiratory: no dyspnea Cardiovascular: no chest pain Gastrointestinal: no abdominal pain Musculoskeletal: no back pain Physical Exam Eyes: PERRL, conjunctivae normal, anicteric sclerae ENMT: external ear and nose normal, oropharynx normal Neck: trachea midline, no thyromegaly Respiratory: normal respiratory effort, lungs clear to auscultation Cardiovascular: RRR, no murmur, no edema Gastrointestinal (Abdomen): normal bowel sounds, soft, nontender, no hepatosplenomegaly Musculoskeletal: Extremities: no cyanosis Skin: no rashes, warm and dry Neurologic: lethargic but awakens to voice, oriented x3 Results & Data ([facility]) Vital Signs (Past 12 Hours) Vital Signs Temp Pulse Resp BP BP Pulse Ox 05/08/20 07:31 36.4 C L 77 18 102/62 91 10/22/20 23:22 37 C 82 20 120/67 92 Laboratory Results Laboratory Tests 05/08/20 05/08/20 05:53 05:53 WBC 8.81 Hgb 8.6 L Hct 28.5 L Plt Count 478 H Sodium 141 Potassium 3.5 Chloride 111 H Carbon Dioxide 24 BUN 19 H Creatinine 2.06 H Glucose 84 PG Care Time/CCT Total # of Minutes Spent Total Time Spent with Patient: Total time spent is greater than 50% in coordination of care (as documented) at patient's floor/unit and/or counseling patient: Coding Level of Care Code 67484 Subseq Hosp Care Lvl 3 Diagnoses Acute kidney injury N17.9 Acute encephalopathy G93.40 UTI (urinary tract infection) N39.0 T2DM (type 2 diabetes mellitus) E11.9
[2020-05-08] MEDS: fentaNYL 12 MCG/HR TDSY TD SCH (16:01)
[2020-05-08] MEDS: AMPHOTERICIN B 50 MG in WATER, STERILE 1,000 ML IR SCH (16:01)
[2020-05-08] MEDS: CHECK fentaNYL PATCH PLACEMENT SCH (16:02)
[2020-05-08] MEDS: busPIRone 5 MG TAB PO SCH (16:02)
--- NOTE | 2020-05-08 17:01 | Hospitalist Progress Note ---
Date of Service May 08, 2020 Assessment & Plan (1) Acute encephalopathy: Worsening confusion, lip smacking/tongue movements appearing as toxic encephalopathy on 05/05. Treated for Klebsiella UTI with Ertapenem x 7 days --> Of note, patient had been on 1,000mg daily Ertapenem and CrCl only slightly above cutoff for reduced dosing as noted by ID provider during video conference ABG with Po2 low, pH normal. No white count. No further fevers MARKEDLY IMPROVED, at baseline currently Very likely could be side effects of ertapenem which has since been discontinued * CT Head w/o acute findings * Neurology consulted -- appreciate rec's * s/p LP -- clot in tap and only able to obtain biofire PCR which was negative. Gram stain with few polys, no organisms. Cx no growth * Continue to hold home Abilify -- can trial resuming since cognitive status improved but will hold off given stability of mental health and clear cognition (2) UTI (urinary tract infection): Klebsiella UTI * Completed 7-day course of ertapenem * BC no growth, fungal culture ordered by urology (not to treat per ID). Repeat urine cx with gram negative bacilli, CFU 5000CFU no identification/sensitivities to follow * Per urology - continue supportive care, maintain Engel catheter for now -- will discuss about discontinuing * ID consulted -- rec to discontinue Ertapenem as patient received 7 days total IV (not renally dosed) as this could have contributed to worsened confusion since Monday. Rec not treating yeast POD#3 s/p bilateral stents with Dr. Toney. Mild irritation and bleeding from fissures within bladder noted. Biopsy negative for malignancy but does show inflammation * Continue 3 way engel catheter and CBI at slow rate * Given yeast on recent cx and concern for migration to kidneys as per Urology, will move forward with ampho B for 5 days (on day 3 of therapy) Of note --> staffing to be alerted at [facility] about /hygiene to prevent repeat infections in the future (3) Leukocytosis: * WBC essentially unchanged and also with worsening thrombocytosis-could be reactive to anemia versus infection * Increased delirium possibly related to ertapenem as above * WBC now wnl * Blood cultures negative * Of note, Patient has a history of septic shoulder in the left. She does have some pain in her right shoulder but it's not overly impressive in presentation for a septic joint, however per patient's daughter her left shoulder sepsis was subtle in presentation. XR of the shoulder earlier in the stay showed chronic rotator cuff injury and degenerative changes but no acute abnormality. If workup remains unrevealing could consider MRI although at this point her kidney function would not allow for contrast. (4) Acute kidney injury: * In setting of NSAID use (confirmed taking both meloxicam and naproxen). Hold NSAIDs and aspirin. Was also on Jardiance which can cause transitional care liaison to rise * NSS @ 80cc/hr * Nephrology on consult -- asked to re-eval today. Likely obstruction of ureteral orifices due to inflammation contributed to SOLEDAD * US Renal with improvement of fullness L renal pelvis * s/p b/l stents as above on 05/[address] Toney * Cr about the same * Follow BMP (5) Anemia: * Iron deficient -- Iron is low at 16, transferrin 139, ferritin 238 - initiated iron supplementation orally and could consider giving IV iron while hospitalized * Likely from continue microscopic hematuria, unaware of most recent colonoscopy/egd but did think she had cologuard/similar. * Rec'd having follow up outpt given father w hx colon ca (arguement between daughter and pt regarding cause of , but reported by daughter as wt loss from 350lb to 180 prior to his passing) * H/h 8.6/28.5 but continues to remain on IVF as above * Fecal occult blood negative * Follow CBC (6) Microscopic hematuria: * UA with RBC positive for at least 1 year, CT equivocal for right renal pelvis hemorrhage, current anemia and acute kidney injury. * Repeat imaging with US showing improvement * Cystoscopy with bleeding fissues noted, biopsy without malignancy * Urine cytology negative (7) Abnormal CT of the abdomen: * As above for microscopic hematuria. (8) Right shoulder pain: * XR right shoulder without obvious acute change but does show chronic rotator cuff injury (9) GERD (gastroesophageal reflux disease): * not on PPI at home and with renal failure here--> dc PPI (10) T2DM (type 2 diabetes mellitus): * HbA1C 8.3 * Hold linagliptin and empagliflozin and would not restart Jardiance given elevated transitional care liaison and UTI. * Continue Lantus 10 units twice daily, NovoLog sliding scale ACHS * BSGs stable (11) History of MRSA infection: * Contact precautions -- repeat MRSA nasal swab per daughter request, + (12) H/O recurrent urinary tract infection: * Recommend not restarting Jardiance on discharge as this will significantly increase her risk of urinary tract infections. (13) Depression with anxiety: * Continue home medications except noted that bupropion is only prescribed 300 mg of the extended release once daily, not 450 mg-this dosing was changed here * Continue home buspirone --> changed to 5mg daily as she had been on outpatient * Holding Abilify (14) Dyslipidemia: * Resumed home simvastatin now as no longer on daptomycin (15) DVT prophylaxis: * SCDs. * No chemical prophylaxis due hematuria/renal hemorrhage as above Dispo: Patient resident at [facility]. CM following. Likely to remain inpatient until completed with Ampho B (Monday) Admission and Anticipated Discharge Date Admission Date: April 27, 2020 Supervising Physician Co-Signing Physician Notes PA Supervision Note: I did not personally see or examine the patient today, but I verified all del rosario points of RUIZ Mendoza's assessment and plan with the following exceptions/additions: None Subjective Doing well. Much clearer. Able to understand without much garbled speech. Eating/drinking without difficulty -- having chicken and vegetables and drinking second cup of fluids currently. Wanted to review plan. Will call daughter to update as well. Her main complaint today is joint pain all over. She had previously been on a fentanyl patch as an outpatient but discussed this was avoided due to confusion but will order for today at home dose. No fever, chills, chest pain, shortness of breath, abdominal pain, nausea or constipation. Hopeful for discharge on Monday to [facility]. Review of Systems Review of Systems: All systems reviewed & are unremarkable except as noted in HPI & below Physical Exam Constitutional: WD/WN, vitals as above + obese; no acute distress and + uncomfortable (with movements of her upper extremities in her shoulders/back) Eyes: + anicteric sclerae and PERRL Neck: normal visual inspection Respiratory: normal respiratory effort, lungs clear to auscultation Auscultation: + diminished lung sounds (due to body habitus) Cardiovascular: RRR, no murmur, no edema (baseline lymphedema) Gastrointestinal (Abdomen): normal bowel sounds, soft, nontender, no hepatosplenomegaly Musculoskeletal: Head/Neck/Chest: normocephalic, head atraumatic and neck supple Neurologic: moves all extremities and awake Psychiatric: Orientation: alert, oriented to person, oriented to place, oriented to time and cooperative Genitourinary: engel draining clearer urine Lymphatic: no cervical or axillary lymphadenopathy Results & Data Results & Data ([facility]) Vital Signs (Past 12 Hours) Vital Signs Temp Pulse Resp BP BP Pulse Ox 05/08/20 15:43 37 C 77 16 115/66 92 05/08/20 07:31 36.4 C L 77 18 102/62 91 Laboratory Results 05/08/20 05/08/20 05/08/20 Range/Units 12:00 08:19 05:53 WBC 8.81 (4.8-10.8) K/uL RBC 3.29 L (4.2-5.4) M/uL Hgb 8.6 L (12.0-16.0) g/dL Hct 28.5 L (37-47) % MCV 86.6 (80-100) fL MCH 26.1 (25-34) pg MCHC 30.2 L (32-36) g/dL RDW Std Deviation 64.2 H (36.4-46.3) fL RDW Coeff of Katina 20.9 H (11.5-14.5) % Plt Count 478 H (130-400) K/uL MPV 9.2 (7.4-10.4) fL Sodium (136-145) mmol/L Potassium (3.5-5.1) mmol/L Chloride (98-107) mmol/L Carbon Dioxide (21-32) mmol/L Anion Gap (3-11) BUN (7-18) mg/dl Creatinine (0.6-1.2) mg/dl Est Cr Clr Drug Dosing ml/min Est GFR ( Amer) Est GFR (Non-Af Amer) BUN/Creatinine Ratio (10-20) Glucose (70-99) mg/dl POC Glucose 77 98 (70-99) mg/dl Calcium (8.5-10.1) mg/dl 05/08/20 05/07/20 05/07/20 Range/Units 05:53 20:48 17:29 WBC (4.8-10.8) K/uL RBC (4.2-5.4) M/uL Hgb (12.0-16.0) g/dL Hct (37-47) % MCV (80-100) fL MCH (25-34) pg MCHC (32-36) g/dL RDW Std Deviation (36.4-46.3) fL RDW Coeff of Katina (11.5-14.5) % Plt Count (130-400) K/uL MPV (7.4-10.4) fL Sodium 141 (136-145) mmol/L Potassium 3.5 (3.5-5.1) mmol/L Chloride 111 H (98-107) mmol/L Carbon Dioxide 24 (21-32) mmol/L Anion Gap 6.0 (3-11) BUN 19 H (7-18) mg/dl Creatinine 2.06 H (0.6-1.2) mg/dl Est Cr Clr Drug Dosing 39.3 ml/min Est GFR ( Amer) 29.0 Est GFR (Non-Af Amer) 25.0 BUN/Creatinine Ratio 9.0 L (10-20) Glucose 84 (70-99) mg/dl POC Glucose 101 H 81 (70-99) mg/dl Calcium 8.2 L (8.5-10.1) mg/dl PG Care Time/CCT Total # of Minutes Spent Total Time Spent with Patient: Total time spent is greater than 50% in coordination of care (as documented) at patient's floor/unit and/or counseling patient: Coding Level of Care Code 59963 Subseq Hosp Care Lvl 2 Diagnoses Acute encephalopathy G93.40 UTI (urinary tract infection) N39.0 Leukocytosis D72.829 Acute kidney injury N17.9 Anemia D64.9 Microscopic hematuria R31.[address] of the abdomen R93.5 Right shoulder pain M25.511 GERD (gastroesophageal reflux disease) K21.9 T2DM (type 2 diabetes mellitus) E11.9 History of MRSA infection Z86.14 H/O recurrent urinary tract infection Z87.440 Depression with anxiety F41.8 Dyslipidemia E78.5 DVT prophylaxis Z29.9
[2020-05-08] MEDS: SIMVASTATIN 20 MG TAB PO SCH (21:24)
[2020-05-08] MEDS: DOCUSATE SODIUM/SENNA 50/8.6MG TAB PO SCH (21:25)
[2020-05-09] MEDS: CHECK fentaNYL PATCH PLACEMENT SCH ×3 (00:10→18:33)
[2020-05-09 06:56] LABS: Hematocrit (blood only) 27.2 % (37-47); Hemoglobin 8.2 g/dL (12.0-16.0); Mean Corpuscular Hemoglobin 25.9 pg (25-34); Mean Corpuscular Hgb Conc 30.1 g/dL (32-36); Mean Corpuscular Volume 86.1 fL (80-100); Mean Platelet Volume 9.3 fL (7.4-10.4); Platelet Count 435 K/uL (130-400); RDW Coefficient of Variation 20.9 % (11.5-14.5); RDW Standard Deviation 63.8 fL (36.4-46.3); Red Blood Count 3.16 M/uL (4.2-5.4); White Blood Count 7.64 K/uL (4.8-10.8)
[2020-05-09 07:23] LABS: BUN Creatinine Ratio 8.7 (10-20); Calcium 7.7 mg/dl (8.5-10.1); Creatinine Clr Calc Pharmacy 37.5 ml/min; Est GFR (African American) 27.4; Est GFR (Non-African American) 23.6; Potassium 3.2 mmol/L (3.5-5.1)
[2020-05-09] MEDS ORDERED: POTASSIUM CHLORIDE 20 MEQ TABCR PO STA (08:30)
[2020-05-09] MEDS: INSULIN ASPART 100 UNITS/ML 3 ML PEN SC SCH ×4 (09:45→22:45)
[2020-05-09] MEDS: INSULIN GLARGINE SOLOSTAR 100 UNITS/ML 3 ML PEN SC SCH ×2 (09:46→22:48)
[2020-05-09] MEDS: CHOLECALCIFEROL 1,000 UNITS 25 MCG TAB PO SCH (09:47)
[2020-05-09] MEDS: buPROPion XL 300 MG TABCR PO SCH (09:47)
[2020-05-09] MEDS: FERROUS GLUCONATE 324 MG TAB PO SCH (09:48)
[2020-05-09] MEDS: ASPIRIN 81 MG ECTAB PO SCH (09:48)
[2020-05-09] MEDS: ADVANCED PROBIOTIC 1250 MG CAPSULE PO SCH (09:48)
[2020-05-09] MEDS: VITAMIN B COMPLEX TAB PO SCH (09:49)
[2020-05-09] MEDS: SODIUM CHLORIDE 0.9% 1000ML 1,000 ML IV SCH (09:53)
--- NOTE | 2020-05-09 10:14 | Hospitalist Progress Note ---
Date of Service May 09, 2020 Assessment & Plan (1) Acute encephalopathy: Worsening confusion, lip smacking/tongue movements appearing as toxic encephalopathy on 05/05. Treated for Klebsiella UTI with Ertapenem x 7 days --> Of note, patient had been on 1,000mg daily Ertapenem and CrCl only slightly above cutoff for reduced dosing as noted by ID provider during video conference ABG with Po2 low, pH normal. No white count. No further fevers MARKEDLY IMPROVED -- AT BASELINE Very likely could be side effects of ertapenem which has since been discontinued * CT Head w/o acute findings * Neurology consulted -- appreciate rec's * s/p LP -- clot in tap and only able to obtain biofire PCR which was negative. Gram stain with few polys, no organisms. Cx no growth FINAL * Continue to hold home Abilify -- can trial resuming since cognitive status improved but will hold off given stability of mental health and clear cognition Home fentanyl resumed for generalized pain on 05/08 -- improved and patient continues to be clear (2) UTI (urinary tract infection): Klebsiella UTI * Completed 7-day course of ertapenem * BC no growth, fungal culture ordered by urology (not to treat per ID). Repeat urine cx with gram negative bacilli, CFU 5000CFU no identification/sensitivities to follow * Per urology - continue supportive care, maintain Engel catheter for now -- will discuss about discontinuing * ID consulted -- rec to discontinue Ertapenem as patient received 7 days total IV (not renally dosed) as this could have contributed to worsened confusion since Monday. Rec not treating yeast POD#4 s/p bilateral stents with Dr. Toney. Mild irritation and bleeding from fissures within bladder noted. Biopsy negative for malignancy but does show inflammation * Continue 3 way engel catheter and CBI at slow rate * Given Michelle glabrata on recent cx and concern for migration to kidneys as per Urology, will move forward with ampho B for 5 days (on day 4 of therapy) Of note --> staffing to be alerted at SNF about /hygiene to prevent repeat infections in the future (3) Leukocytosis: * WBC essentially unchanged and also with worsening thrombocytosis-could be reactive to anemia versus infection * Increased delirium possibly related to ertapenem as above * WBC now wnl * Blood cultures negative * Of note, Patient has a history of septic shoulder in the left. She does have some pain in her right shoulder but it's not overly impressive in presentation for a septic joint, however per patient's daughter her left shoulder sepsis was subtle in presentation. XR of the shoulder earlier in the stay showed chronic rotator cuff injury and degenerative changes but no acute abnormality. If workup remains unrevealing could consider MRI although at this point her kidney function would not allow for contrast. (4) Acute kidney injury: * In setting of NSAID use (confirmed taking both meloxicam and naproxen). Hold NSAIDs and aspirin. Was also on Jardiance which can cause information assurance to rise * Nephrology on consult -- asked to re-eval today. Likely obstruction of ureteral orifices due to inflammation contributed to SOLEDAD * US Renal with improvement of fullness L renal pelvis * s/p b/l stents as above on 05/[address] Toney * Cr slightly up -- will d/c IVF as patient with good oral intake and possibly slightly volume up * Elevated Cr may be her new baseline * BMP in AM (5) Anemia: * Iron deficient -- Iron is low at 16, transferrin 139, ferritin 238 - initiated iron supplementation orally and could consider giving IV iron while hospitalized * Likely from continue microscopic hematuria, unaware of most recent colonoscopy/egd but did think she had cologuard/similar. * Rec'd having follow up outpt given father w hx colon ca (argument between daughter and pt regarding cause of , but reported by daughter as wt loss from 350lb to 180 prior to his passing) * H/h 8.2/27.2 * Monitor in AM now that IVF discontinued * Fecal occult blood negative * Follow CBC (6) Microscopic hematuria: * UA with RBC positive for at least 1 year, CT equivocal for right renal pelvis hemorrhage, current anemia and acute kidney injury. * Repeat imaging with US showing improvement * Cystoscopy with bleeding fissues noted, biopsy without malignancy * Urine cytology negative (7) Abnormal CT of the abdomen: * As above for microscopic hematuria. (8) Right shoulder pain: * XR right shoulder without obvious acute change but does show chronic rotator cuff injury (9) GERD (gastroesophageal reflux disease): * not on PPI at home and with renal failure here--> dc PPI (10) T2DM (type 2 diabetes mellitus): * HbA1C 8.3 * Hold linagliptin and empagliflozin and would not restart Jardiance given elevated information assurance and UTI. * Continue Lantus 10 units twice daily, NovoLog sliding scale ACHS * BSGs stable (11) History of MRSA infection: * Contact precautions -- repeat MRSA nasal swab per daughter request, + (12) H/O recurrent urinary tract infection: * Recommend not restarting Jardiance on discharge as this will significantly increase her risk of urinary tract infections. (13) Depression with anxiety: * Continue home medications except noted that bupropion is only prescribed 300 mg of the extended release once daily, not 450 mg-this dosing was changed here * Continue home buspirone --> changed to 5mg daily as she had been on outpatient * Holding Abilify (14) Dyslipidemia: * Resumed home simvastatin now as no longer on daptomycin (15) DVT prophylaxis: * SCDs. * No chemical prophylaxis due hematuria/renal hemorrhage as above Dispo: Patient resident at [facility]. CM following. Likely to remain inpatient until completed with Ampho B (Monday) vs Monday Admission and Anticipated Discharge Date Admission Date: April 27, 2020 Supervising Physician Co-Signing Physician Notes PA Supervision Note: I did not personally see or examine the patient today, but I verified all del rosario points of RUIZ Mendoza's assessment and plan with the following exceptions/additions: None Subjective Patient evaluated this afternoon with daughter at bedside. At baseline for cognition. Eating/drinking improved. Will d/c IVF at this time as IV infiltrated, patient keeping up with PO, and Cr may be new baseline as discussed. Pain improved with fentanyl patch. No fever, chills, chest pain, shortness of breath, abdominal pain, n/v at this time. Review of Systems Review of Systems: All systems reviewed & are unremarkable except as noted in HPI & below Physical Exam Constitutional: WD/WN, vitals as above + obese and comfortable; no acute distress Eyes: + anicteric sclerae and PERRL Neck: normal visual inspection Respiratory: normal respiratory effort, lungs clear to auscultation Auscultation: + diminished lung sounds (due to body habitus) Cardiovascular: RRR, no murmur, no edema (baseline lymphedema) Gastrointestinal (Abdomen): normal bowel sounds, soft, nontender, no hepatosplenomegaly Musculoskeletal: Head/Neck/Chest: normocephalic, head atraumatic and neck supple Neurologic: moves all extremities and awake Psychiatric: Orientation: alert, oriented to person, oriented to place, oriented to time and cooperative Genitourinary: engel Lymphatic: no cervical or axillary lymphadenopathy Results & Data Results & Data ([facility]) Vital Signs (Past 12 Hours) Vital Signs Temp Pulse Resp BP Pulse Ox 05/09/20 08:10 36.7 C 83 18 112/69 93 05/08/20 23:23 37.0 C 80 18 96/58 L 92 Laboratory Results 05/09/20 05/09/20 05/09/20 Range/Units 11:59 08:08 06:15 WBC (4.8-10.8) K/uL RBC (4.2-5.4) M/uL Hgb (12.0-16.0) g/dL Hct (37-47) % MCV (80-100) fL MCH (25-34) pg MCHC (32-36) g/dL RDW Std Deviation (36.4-46.3) fL RDW Coeff of Katina (11.5-14.5) % Plt Count (130-400) K/uL MPV (7.4-10.4) fL Sodium (136-145) mmol/L Potassium (3.5-5.1) mmol/L Chloride (98-107) mmol/L Carbon Dioxide (21-32) mmol/L Anion Gap (3-11) BUN (7-18) mg/dl Creatinine (0.6-1.2) mg/dl Est Cr Clr Drug Dosing ml/min Est GFR ( Amer) Est GFR (Non-Af Amer) BUN/Creatinine Ratio (-20) Glucose (70-99) mg/dl POC Glucose 87 108 H (70-99) mg/dl Calcium (8.5-10.1) mg/dl Magnesium 1.9 (1.8-2.4) mg/dl 05/09/20 05/09/20 05/08/20 Range/Units 06:15 06:15 20:37 WBC 7.64 (4.8-10.8) K/uL RBC 3.16 L (4.2-5.4) M/uL Hgb 8.2 L (12.0-16.0) g/dL Hct 27.2 L (37-47) % MCV 86.1 (80-100) fL MCH 25.9 (25-34) pg MCHC 30.1 L (32-36) g/dL RDW Std Deviation 63.8 H (36.4-46.3) fL RDW Coeff of Katina 20.9 H (11.5-14.5) % Plt Count 435 H (130-400) K/uL MPV 9.3 (7.4-10.4) fL Sodium 142 (136-145) mmol/L Potassium 3.2 L (3.5-5.1) mmol/L Chloride 113 H (98-107) mmol/L Carbon Dioxide 22 (21-32) mmol/L Anion Gap 6.0 (3-11) BUN 19 H (7-18) mg/dl Creatinine 2.16 H (0.6-1.2) mg/dl Est Cr Clr Drug Dosing 37.5 ml/min Est GFR ( Amer) 27.4 Est GFR (Non-Af Amer) 23.6 BUN/Creatinine Ratio 8.7 L (10-20) Glucose 96 (70-99) mg/dl POC Glucose 90 (70-99) mg/dl Calcium 7.7 L (8.5-10.1) mg/dl Magnesium (1.8-2.4) mg/dl 05/08/20 Range/Units 17:17 WBC (4.8-10.8) K/uL RBC (4.2-5.4) M/uL Hgb (12.0-16.0) g/dL Hct (37-47) % MCV (80-100) fL MCH (25-34) pg MCHC (32-36) g/dL RDW Std Deviation (36.4-46.3) fL RDW Coeff of Katina (11.5-14.5) % Plt Count (130-400) K/uL MPV (7.4-10.4) fL Sodium (136-145) mmol/L Potassium (3.5-5.1) mmol/L Chloride (98-107) mmol/L Carbon Dioxide (21-32) mmol/L Anion Gap (3-11) BUN (7-18) mg/dl Creatinine (0.6-1.2) mg/dl Est Cr Clr Drug Dosing ml/min Est GFR ( Amer) Est GFR (Non-Af Amer) BUN/Creatinine Ratio (10-20) Glucose (70-99) mg/dl POC Glucose 97 (70-99) mg/dl Calcium (8.5-10.1) mg/dl Magnesium (1.8-2.4) mg/dl PG Care Time/CCT Total # of Minutes Spent Total Time Spent with Patient: Total time spent is greater than 50% in coordination of care (as documented) at patient's floor/unit and/or counseling patient: Coding Level of Care Code 52122 Subseq Hosp Care Lvl 2 Diagnoses Acute encephalopathy G93.40 UTI (urinary tract infection) N39.0 Leukocytosis D72.829 Acute kidney injury N17.9 Anemia D64.9 Microscopic hematuria R31.[address] of the abdomen R93.5 Right shoulder pain M25.511 GERD (gastroesophageal reflux disease) K21.9 T2DM (type 2 diabetes mellitus) E11.9 History of MRSA infection Z86.14 H/O recurrent urinary tract infection Z87.440 Depression with anxiety F41.8 Dyslipidemia E78.5 DVT prophylaxis Z29.9
[2020-05-09] MEDS: AMPHOTERICIN B 50 MG in WATER, STERILE 1,000 ML IR SCH (18:33)
[2020-05-09] MEDS: busPIRone 5 MG TAB PO SCH (18:40)
[2020-05-09] MEDS: LIDOCAINE 5% 1 PATCH TD SCH (19:52)
[2020-05-09] MEDS: DOCUSATE SODIUM/SENNA 50/8.6MG TAB PO SCH (21:25)
[2020-05-09] MEDS: SIMVASTATIN 20 MG TAB PO SCH (21:25)
[2020-05-10] MEDS: CHECK fentaNYL PATCH PLACEMENT SCH ×3 (01:44→16:44)
[2020-05-10 06:17] LABS: Hematocrit (blood only) 28.7 % (37-47); Hemoglobin 8.8 g/dL (12.0-16.0); Mean Corpuscular Hemoglobin 26.3 pg (25-34); Mean Corpuscular Hgb Conc 30.7 g/dL (32-36); Mean Corpuscular Volume 85.7 fL (80-100); Mean Platelet Volume 9.5 fL (7.4-10.4); Platelet Count 428 K/uL (130-400); RDW Coefficient of Variation 21.3 % (11.5-14.5); RDW Standard Deviation 63.8 fL (36.4-46.3); Red Blood Count 3.35 M/uL (4.2-5.4); White Blood Count 7.02 K/uL (4.8-10.8)
[2020-05-10 06:49] LABS: BUN Creatinine Ratio 10.4 (10-20); Calcium 8.2 mg/dl (8.5-10.1); Est GFR (African American) 31.4; Est GFR (Non-African American) 27.1; Magnesium 1.8 mg/dl (1.8-2.4); Potassium 3.4 mmol/L (3.5-5.1)
[2020-05-10] MEDS ORDERED: POTASSIUM CHLORIDE 10 MEQ TABCR PO STA (08:36)
[2020-05-10] MEDS: INSULIN GLARGINE SOLOSTAR 100 UNITS/ML 3 ML PEN SC SCH (08:51)
[2020-05-10] MEDS: INSULIN ASPART 100 UNITS/ML 3 ML PEN SC SCH ×4 (08:51→22:03)
[2020-05-10] MEDS: CHOLECALCIFEROL 1,000 UNITS 25 MCG TAB PO SCH (08:51)
[2020-05-10] MEDS: buPROPion XL 300 MG TABCR PO SCH (08:52)
[2020-05-10] MEDS: ADVANCED PROBIOTIC 1250 MG CAPSULE PO SCH (08:52)
[2020-05-10] MEDS: VITAMIN B COMPLEX TAB PO SCH (08:52)
[2020-05-10] MEDS: ASPIRIN 81 MG ECTAB PO SCH (08:52)
[2020-05-10] MEDS: FERROUS GLUCONATE 324 MG TAB PO SCH (08:52)
--- NOTE | 2020-05-10 09:48 | Hospitalist Progress Note ---
Date of Service May 10, 2020 Assessment & Plan (1) Acute encephalopathy: Worsening confusion, lip smacking/tongue movements appearing as toxic encephalopathy on 05/05. Treated for Klebsiella UTI with Ertapenem x 7 days --> Of note, patient had been on 1,000mg daily Ertapenem and CrCl only slightly above cutoff for reduced dosing as noted by ID provider during video conference ABG with Po2 low, pH normal. No white count. No further fevers MARKEDLY IMPROVED -- AT BASELINE Likely side effects of ertapenem which has since been discontinued and patient's symptoms resolved * CT Head w/o acute findings * Neurology consulted -- appreciate rec's * s/p LP -- clot in tap and only able to obtain biofire PCR which was negative. Gram stain with few polys, no organisms. Cx no growth FINAL * Continue to hold home Abilify -- can trial resuming since cognitive status improved but will hold off given stability of mental health and clear cognition/no psych issues Home fentanyl resumed for generalized pain on 05/08 -- improved and patient continues to be clear (2) UTI (urinary tract infection): Klebsiella UTI * Completed 7-day course of ertapenem * BC no growth, fungal culture ordered by urology (not to treat per ID). Repeat urine cx with gram negative bacilli, CFU 5000CFU no identification/sensitivities to follow * Per urology - continue supportive care, maintain Engel catheter for now -- will discuss about discontinuing * ID consulted -- rec to discontinue Ertapenem as patient received 7 days total IV (not renally dosed) as this could have contributed to worsened confusion since Monday. Rec not treating yeast POD#5 s/p bilateral stents with Dr. Toney. Mild irritation and bleeding from fissures within bladder noted. Biopsy negative for malignancy but does show inflammation * Continue 3 way engel catheter and CBI at slow rate * Given Michelle glabrata on recent cx and concern for migration to kidneys as per Urology, will move forward with ampho B for 5 days (on day 5 of therapy) * Patient to be discharged with 3way catheter and will need f/u with Dr. Toney at discharge Of note --> staffing to be alerted at SNF about /hygiene to prevent repeat infections in the future (3) Leukocytosis: * WBC essentially unchanged and also with worsening thrombocytosis-could be reactive to anemia versus infection * Increased delirium possibly related to ertapenem as above, now resolved * WBC now wnl and platelets improving * Blood cultures negative * Of note, Patient has a history of septic shoulder in the left. She does have some pain in her right shoulder but it's not overly impressive in presentation for a septic joint, however per patient's daughter her left shoulder sepsis was subtle in presentation. XR of the shoulder earlier in the stay showed chronic rotator cuff injury and degenerative changes but no acute abnormality. If workup remains unrevealing could consider MRI although at this point her kidney function would not allow for contrast. (4) Acute kidney injury: * In setting of NSAID use (confirmed taking both meloxicam and naproxen). Hold NSAIDs and aspirin. 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 Likely obstruction of ureteral orifices due to inflammation contributed to SOLEDAD * US Renal with improvement of fullness L renal pelvis * s/p b/l stents as above on 05/[address] Toney * Cr improved off IVF (good PO recently) * Cr 1.93 -- monitor in AM but new basleine may be slightly higher * BMP in AM (5) Anemia: * Iron deficient -- Iron is low at 16, transferrin 139, ferritin 238 - initiated iron supplementation orally and could consider giving IV iron in the future if not responding to oral iron * Likely from continue microscopic hematuria, unaware of most recent colonoscopy/egd but did think she had cologuard/similar. * Rec'd having follow up outpt with GI given father w hx colon ca (argument between daughter and pt regarding cause of , but reported by daughter as wt loss from 350lb to 180 prior to his passing) * H/h improved to 8.8/28.7 -- IVF d/c'd 05/09 * Fecal occult blood negative * Follow CBC (6) Microscopic hematuria: * UA with RBC positive for at least 1 year, CT equivocal for right renal pelvis hemorrhage, current anemia and acute kidney injury. * Repeat imaging with US showing improvement * Cystoscopy with bleeding fissues noted, biopsy without malignancy * Urine cytology negative (7) Abnormal CT of the abdomen: * As above for microscopic hematuria. 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 * Decreased lantus to 10units daily (ordered 20U BID and last 2 evening doses held, BSGs on the lower side) * Patient and daughter would not like to continue her usual agents at discharge and wanted to discuss discharge on insulin therapy (not able to tolerate metformin and patient stated "I told them where they could shove that" due to diarrhea) * Continue Lantus 10 units twice daily, NovoLog sliding scale ACHS * Could consider Moderate dose SSI as follows at discharge Blood Sugar 70-150 administer ? 0 units Blood Sugar 151-200 administer ? 2 units Blood Sugar 201-250 administer ? 4 units Blood Sugar 251-300 administer ? 6 units Blood Sugar 301-350 administer ? 8 units Blood Sugar 351-400 administer ? 10 units Blood Sugar >400 administer ? 12 units and call MD Then, could follow up with PCP for titration of insulin as PO intake improves * Continue to monitor (11) History of MRSA infection: * Contact precautions -- repeat MRSA nasal swab per daughter request, + (12) H/O recurrent urinary tract infection: * Recommend not restarting Jardiance on discharge as this will significantly increase her risk of urinary tract infections. * See above under DM as patient would like to be discharged on insulin alone at discharge (13) Depression with anxiety: * Continue home medications except noted that bupropion is only prescribed 300 mg of the extended release once daily, not 450 mg-this dosing was changed here * Continue home buspirone --> changed to 5mg daily as she had been on outpatient * Holding Abilify (14) Dyslipidemia: * Resumed home simvastatin now as no longer on daptomycin (15) DVT prophylaxis: * SCDs. * No chemical prophylaxis due hematuria/renal hemorrhage as above Hypokalemia -- K 3.4 -- only ordered 10meq kdur given kidney disease. Mag wnl. BMP in AM Dispo: Patient resident at [facility]. CM following. To complete Ampho B today. Monitor labs in AM for stability and to monitor insulin needs. Will need f/u with Dr. Toney regarding engel catheter. Likely discharge in AM back to [facility] -- staff to be educated about proper hygiene care/wiping (see above). Admission and Anticipated Discharge Date Admission Date: April 27, 2020 Supervising Physician Co-Signing Physician Notes RUIZ Supervision Note: I did not personally see or examine the patient today, but I verified all del rosario points of RUIZ Mendoza's assessment and plan with the following exceptions/additions: None Subjective Patient evaluated this morning with daughter at bedside. Last dose Ampho B to be administered today. Cr improved off of fluids and would like to see how she progresses on AM labs once fungal treatment completed and continuing to stay off fluids. Discussed Urology would like to keep catheter in at discharge and will have follow up in the office and to call on Monday for an appointment. Continues to have better PO intake and requesting ice chips to drink more water in addition to her usual tea. Pain better controlled but she did not get much sleep last night due to being woken up and would like something at night if possible. With regards to her glycemic control, she does have issues with her newer agents and was unable to tolerate metformin and patient and daughter would like to discuss moving forward with insulin alone at discharge. Will discuss with pharmacy and monitor needs to come up with plan at discharge for basal/bolus at [facility] at discharge for better control with less side effects as she has not had any issues with insulin while in the hospital. No fever, chills, chest pain, shortness of breath, abdominal pain, nausea, vomiting. Review of Systems Review of Systems: All systems reviewed & are unremarkable except as noted in HPI & below Physical Exam Constitutional: WD/WN, vitals as above + obese and comfortable; no acute distress Eyes: + anicteric sclerae and PERRL Neck: normal visual inspection Respiratory: normal respiratory effort, lungs clear to auscultation Auscultation: + diminished lung sounds (due to body habitus) Cardiovascular: RRR, no murmur, no edema (baseline lymphedema) Gastrointestinal (Abdomen): normal bowel sounds, soft, nontender, no hepatosplenomegaly Musculoskeletal: Head/Neck/Chest: normocephalic, head atraumatic and neck supple pain to L shoulder (uses Right to move left) Skin: healing ulcer L groin fold improved erythema to groin breast folds with desenex powder optifoam to buttock Neurologic: moves all extremities and awake Psychiatric: Orientation: alert, oriented to person, oriented to place, oriented to time and cooperative Genitourinary: engel with pink tinge/sediment present Lymphatic: no cervical or axillary lymphadenopathy Results & Data Results & Data ([facility]) Vital Signs (Past 12 Hours) Vital Signs Temp Pulse Resp BP Pulse Ox 05/10/20 06:53 36.4 C L 77 16 102/67 95 05/10/20 00:16 37.0 C 86 16 106/68 96 Laboratory Results 05/10/20 05/10/20 05/10/20 Range/Units 07:59 05:30 05:30 WBC 7.02 (4.8-10.8) K/uL RBC 3.35 L (4.2-5.4) M/uL Hgb 8.8 L (12.0-16.0) g/dL Hct 28.7 L (37-47) % MCV 85.7 (80-100) fL MCH 26.3 (25-34) pg MCHC 30.7 L (32-36) g/dL RDW Std Deviation 63.8 H (36.4-46.3) fL RDW Coeff of Katina 21.3 H (11.5-14.5) % Plt Count 428 H (130-400) K/uL MPV 9.5 (7.4-10.4) fL Sodium 142 (136-145) mmol/L Potassium 3.4 L (3.5-5.1) mmol/L Chloride 112 H (98-107) mmol/L Carbon Dioxide 23 (21-32) mmol/L Anion Gap 7.0 (3-11) BUN 20 H (7-18) mg/dl Creatinine 1.93 H (0.6-1.2) mg/dl Est Cr Clr Drug Dosing 42.0 ml/min Est GFR ( Amer) 31.4 Est GFR (Non-Af Amer) 27.1 BUN/Creatinine Ratio 10.4 (10-20) Glucose 92 (70-99) mg/dl POC Glucose 110 H (70-99) mg/dl Calcium 8.2 L (8.5-10.1) mg/dl Magnesium 1.8 (1.8-2.4) mg/dl 05/09/20 05/09/20 05/09/20 Range/Units 20:50 17:33 11:59 WBC (4.8-10.8) K/uL RBC (4.2-5.4) M/uL Hgb (12.0-16.0) g/dL Hct (37-47) % MCV (80-100) fL MCH (25-34) pg MCHC (32-36) g/dL RDW Std Deviation (36.4-46.3) fL RDW Coeff of Katina (11.5-14.5) % Plt Count (130-400) K/uL MPV (7.4-10.4) fL Sodium (136-145) mmol/L Potassium (3.5-5.1) mmol/L Chloride (98-107) mmol/L Carbon Dioxide (21-32) mmol/L Anion Gap (3-11) BUN (7-18) mg/dl Creatinine (0.6-1.2) mg/dl Est Cr Clr Drug Dosing ml/min Est GFR ( Amer) Est GFR (Non-Af Amer) BUN/Creatinine Ratio (10-20) Glucose (70-99) mg/dl POC Glucose 92 106 H 87 (70-99) mg/dl Calcium (8.5-10.1) mg/dl Magnesium (1.8-2.4) mg/dl PG Care Time/CCT Total # of Minutes Spent Total Time Spent with Patient: Total time spent is greater than 50% in coordination of care (as documented) at patient's floor/unit and/or counseling patient: Coding Level of Care Code 17318 Subseq Hosp Care Lvl 2 Diagnoses Acute encephalopathy G93.40 UTI (urinary tract infection) N39.0 Leukocytosis D72.829 Acute kidney injury N17.9 Anemia D64.9 Microscopic hematuria R31.[address] of the abdomen R93.5 Right shoulder pain M25.511 GERD (gastroesophageal reflux disease) K21.9 T2DM (type 2 diabetes mellitus) E11.9 History of MRSA infection Z86.14 H/O recurrent urinary tract infection Z87.440 Depression with anxiety F41.8 Dyslipidemia E78.5 DVT prophylaxis Z29.9
[2020-05-10] MEDS ORDERED: hydrOXYzine HCl 10 MG TAB PO PRN (14:36)
[2020-05-10] MEDS: busPIRone 5 MG TAB PO SCH (16:43)
[2020-05-10] MEDS: LIDOCAINE 5% 1 PATCH TD SCH ×2 (16:48→16:52)
[2020-05-10] MEDS: AMPHOTERICIN B 50 MG in WATER, STERILE 1,000 ML IR SCH (18:15)
[2020-05-10] MEDS: SIMVASTATIN 20 MG TAB PO SCH (21:50)
[2020-05-10] MEDS: DOCUSATE SODIUM/SENNA 50/8.6MG TAB PO SCH (21:50)
[2020-05-11] MEDS: CHECK fentaNYL PATCH PLACEMENT SCH ×3 (00:01→17:47)
[2020-05-11] MEDS: ACETAMINOPHEN 325 MG TAB PO PRN (03:42)
[2020-05-11 06:16] LABS: Hematocrit (blood only) 31.8 % (37-47); Hemoglobin 9.7 g/dL (12.0-16.0); Mean Corpuscular Hemoglobin 26.4 pg (25-34); Mean Corpuscular Hgb Conc 30.5 g/dL (32-36); Mean Corpuscular Volume 86.6 fL (80-100); Mean Platelet Volume 9.5 fL (7.4-10.4); Platelet Count 434 K/uL (130-400); RDW Standard Deviation 66.5 fL (36.4-46.3); Red Blood Count 3.67 M/uL (4.2-5.4); White Blood Count 8.69 K/uL (4.8-10.8)
[2020-05-11 07:02] LABS: BUN Creatinine Ratio 10.9 (10-20); Calcium 8.5 mg/dl (8.5-10.1); Creatinine Clr Calc Pharmacy 43.6 ml/min; Est GFR (African American) 33.2; Est GFR (Non-African American) 28.7; Potassium 3.6 mmol/L (3.5-5.1)
[2020-05-11] MEDS: INSULIN ASPART 100 UNITS/ML 3 ML PEN SC SCH ×4 (08:39→22:15)
[2020-05-11] MEDS: INSULIN GLARGINE SOLOSTAR 100 UNITS/ML 3 ML PEN SC SCH (08:39)
[2020-05-11] MEDS: buPROPion XL 300 MG TABCR PO SCH (08:52)
[2020-05-11] MEDS: ASPIRIN 81 MG ECTAB PO SCH (08:52)
[2020-05-11] MEDS: FERROUS GLUCONATE 324 MG TAB PO SCH (08:52)
[2020-05-11] MEDS: VITAMIN B COMPLEX TAB PO SCH (08:52)
[2020-05-11] MEDS: ADVANCED PROBIOTIC 1250 MG CAPSULE PO SCH (08:52)
[2020-05-11] MEDS: CHOLECALCIFEROL 1,000 UNITS 25 MCG TAB PO SCH (08:52)
--- NOTE | 2020-05-11 08:57 | Urology Progress Note ---
Date of Service May 11, 2020 Assessment & Plan (1) Acute kidney injury: (2) UTI (urinary tract infection): (3) Microscopic hematuria: (4) Abnormal CT of the abdomen: 65 year-old female patient admitted with acute kidney injury, bilateral hydronephrosis, leukocytosis, and urinary tract infection. - POD #6 cystoscopy with bilateral retrograde pyelogram and bilateral stent placement, signs of mild irritation and bleeding from fissures within the bladder lining. - Patient remains afebrile, creatinine and white count improved. - Patient with significant improvement in overall cognitive status. - Urine culture positive for Klebsiella, Ertapenem completed after 7 day course as this was felt to contribute to confusion. - Fungal urine culture 05/01 with yeast, not sonja - given yeast and current bilateral stents, Amphotericin B bladder irrigations started 05/06, due to be completed today after completion of 5 day course. - Blood cultures no growth. - Recommend home with indwelling engel catheter. - No additional acute intervention warranted at this time. - Will arrange outpatient follow-up with urology service to discuss engel and stent management. Thank you for allowing us to participate in the acute care of Mrs Hardy. Please reconsult us with additional questions, concerns or changes in patient status. Admission and Anticipated Discharge Date Admission Date: April 27, 2020 Subjective Patient POD#6 cystoscopy, bilateral stent placement. Patient alert, awake, comfortable this morning. She has had marked improvement in cognitive status. Currently denies flank or abdominal pain. Denies nausea or vomiting. Denies fevers or chills. Three-way engel catheter intact with Amphotericin B bladder irrigation infusing, tolerating well. Urine clear yellow today. Chart review: Afebrile Wbc normal at 8.69 Hgb 9.7 Creatinine 1.84 (previously 1.93) Urine culture 10/ positive for Klebsiella, Ertapenem completed after 7 day course, ID consult in place. Repeat urine culture 05/01 with yeast, not sonja. Repeat fungal urine culture 05/03 with 5,000 cfu gram negative without identification or sensitivities. Blood culture negative for growth after 5 days. Urine cytology negative for high-grade urothelial carcinoma Denies additional urologic concerns today. Review of Systems Constitutional: as per Subjective / HPI; no fever and no chills Gastrointestinal: as per Subjective / HPI; no nausea and no vomiting Genitourinary: as per Subjective / HPI Psychiatric: as per Subjective / HPI Physical Exam Constitutional: well developed and well nourished; no acute distress and not ill appearing Respiratory: normal respiratory effort and able to speak in complete sentences; no respiratory distress and no audible wheezes Gastrointestinal (Abdomen): Inspection/Auscultation: abdomen normal to inspection; abdomen not distended Percussion/Palpation: abdomen soft; abdomen nontender and no guarding Psychiatric: Orientation: alert, oriented to person, oriented to time and cooperative; + not oriented to place Affect: euthymic affect Genitourinary: no CVA tenderness Three way engel catheter intact, Amphote ricin B bladder irrigation infusing into indwelling engel port. Urine clear yellow. Results & Data ([facility]) Vital Signs (Past 12 Hours) Vital Signs Temp Pulse Resp BP Pulse Ox 05/11/20 07:05 37.0 C 76 16 130/68 96 05/10/20 23:56 36.8 C 82 16 112/72 94 PG Care Time/CCT Total # of Minutes Spent Total Time Spent with Patient: Total time spent is greater than 50% in coordination of care (as documented) at patient's floor/unit and/or counseling patient: Coding Level of Care Code 92988 Subseq Hosp Care Lvl 2 Diagnoses Acute kidney injury N17.9 UTI (urinary tract infection) N39.0 Microscopic hematuria R31.[address] of the abdomen R93.5
--- NOTE | 2020-05-11 13:24 | Hospitalist Progress Note ---
Date of Service May 11, 2020 Assessment & Plan (1) Acute encephalopathy: This seems to be improved Patient states that when she is infection oftentimes this happens. She remembers the episodes of confusion this admission. Urinary tract infection with Klebsiella Patient also has positive MRSA nasal swab This point leukocytosis is improving. Patient is afebrile. She is currently receiving amphotericin via three-way catheter She continues 7-day course of ertapenem Urology and infectious disease both consulted Further management of UTI per urology Dissipate discharge back to [facility] (2) UTI (urinary tract infection): Klebsiella Completed course of 7 days of ertapenem Continue amphotericin irrigation via three-way catheter per the direction of urology Fallon catheter to stay in place until follow-up appointment with urology Some hematuria noted in Fallon bag (3) Leukocytosis: White count is resolved and is currently 8.69 Afebrile Continue treating for complicated UTI as above (4) Acute kidney injury: Patient appears to be at baseline with a BUN of 20 and a creatinine of 1.86 Continue I's and O's Follow serial lab (5) Anemia: Iron deficient anemia Gross hematuria, otherwise no active bleeding Hemoglobin stable at 9.7 with hematocrit of 1.8 Outpatient follow-up with gastroenterology due to report of positive Cologuard (6) T2DM (type 2 diabetes mellitus): Jardiance and Tradjenta as an outpatient Continue Lantus and sliding scale NovoLog while inpatient Hemoglobin A1c is 8.3 (7) Gross hematuria: Most likely due to acute UTI as well as Fallon catheter placement Hemoglobin is stable Continue to monitor (8) History of MRSA infection: Repeat swab positive this admission No indication for treatment Continue isolation precautions (9) GERD (gastroesophageal reflux disease): No current complaints Continue omeprazole as an outpatient (10) Hypokalemia: Magnesium is 2.0 Potassium 3.6 today Continue to follow serial lab (11) Anxiety and depression: Chronic pain Bupropion dosing corrected Continue buspirone 5 mg daily Continue to hold Abilify secondary to confusion We will plan on resuming at time of discharge (12) DVT prophylaxis: Continue to hold chemical prophylaxis secondary to gross hematuria and renal hemorrhage Continue SCDs Ambulate as tolerated Please refer to Dr. Tay Mesa's addendum for further recommendations. Admission and Anticipated Discharge Date Admission Date: April 27, 2020 Subjective Attending: Dr. Tay Mesa This is a 65 yo female that resides at [facility]. She presented with acute encephalopathy and was also found to have an acute UTI with Klebsiella. She was found to have obstructive uropathy and went to the OR with Dr. Toney who placed bilateral stents. Today is postoperative day #6. She completed 5 days of amphotericin. He also completed 7 days of ertapenem. She currently has a three-way catheter and the plan is to discharge her with this in place until seen by Dr. Toney as an outpatient. She denies any abdominal pain at this time. She has no fever or chills. She has no shortness of breath. She is aware of her confusion and states that that is now resolved. She is able to tell me her name her date of and tells me that she has a daughter that works in [email or web address]. Review of Systems Review of Systems: All systems reviewed & are unremarkable except as noted in Subjective Physical Exam Physical Exam: GENERAL : No acute distress. Morbidly obese. Unable to sit upright EYES: No icterus, gaze conjugate NOSE: No evidence of epistaxis MOUTH: No lesions or candidiasis NECK: Supple LUNGS: Fine crackles bilaterally. HEART: Regular, rate controlled ABDOMEN: Soft, NT, ND, BS Present EXTREMITIES: No LE edema, pedal pulses intact NEURO: A&OX3 Results & Data Results & Data ([facility]) Vital Signs (Past 12 Hours) Vital Signs Temp Pulse Resp BP Pulse Ox 05/11/20 07:05 37.0 C 76 16 130/68 96 Laboratory Results 05/11/20 05:21 05/11/20 05:21 Microbiology 05/06/20 Unknown Cerebral Spinal Fluid Gram Stain - Final 05/06/20 Unknown Cerebral Spinal Fluid CSF Culture - Final No growth 05/03/20 09:53 Blood Aerobic Blood Culture - Final No growth in Aerobic bottle after 5 days. 05/03/20 09:53 Blood Anaerobic Blood Culture - Final No growth in Anaerobic bottle after 5 days. 05/03/20 09:44 Blood Aerobic Blood Culture - Final No growth in Aerobic bottle after 5 days. 05/03/20 09:44 Blood Anaerobic Blood Culture - Final No growth in Anaerobic bottle after 5 days. 05/01/20 13:57 Urine,Indwelling Cath Fungal Smear - Final 05/01/20 13:57 Urine,Indwelling Cath Fungal Culture - Final Michelle glabrata complex 05/03/20 10:15 Urine,Clean Catch Urine Culture - Final Gram negative bacilli 04/27/20 11:21 Blood Aerobic Blood Culture - Final No growth in Aerobic bottle after 5 days. 04/27/20 11:21 Blood Anaerobic Blood Culture - Final No growth in Anaerobic bottle after 5 days. 04/27/20 11:49 Blood Aerobic Blood Culture - Final No growth in Aerobic bottle after 5 days. 04/27/20 11:49 Blood Anaerobic Blood Culture - Final No growth in Anaerobic bottle after 5 days. 04/27/20 15:31 Urine,Straight Cath Urine Culture - Final Klebsiella pneumoniae Lactobacillus species Diagnostic Findings No new diagnostic imaging since 05/06/2020 PG Care Time/CCT Total # of Minutes Spent Total Time Spent with Patient: Total time spent is greater than 50% in coordination of care (as documented) at patient's floor/unit and/or counseling patient: 30 minutes including chart review and discussion with other providers Coding Level of Care Code 08754 Subseq Hosp Care Lvl 2 Diagnoses Acute encephalopathy G93.40 UTI (urinary tract infection) N39.0 Leukocytosis D72.829 Acute kidney injury N17.9 Anemia D64.9 T2DM (type 2 diabetes mellitus) E11.9 Gross hematuria R31.0 History of MRSA infection Z86.14 GERD (gastroesophageal reflux disease) K21.9 Hypokalemia E87.6 Anxiety and depression F41.9; F32.9 DVT prophylaxis Z29.9 Time Spent (min) 30
[2020-05-11] MEDS: fentaNYL 12 MCG/HR TDSY TD SCH (14:22)
[2020-05-11] MEDS: LIDOCAINE 5% 1 PATCH TD SCH (17:46)
[2020-05-11] MEDS: busPIRone 5 MG TAB PO SCH (17:46)
[2020-05-11] MEDS: SIMVASTATIN 20 MG TAB PO SCH (20:49)
[2020-05-11] MEDS: DOCUSATE SODIUM/SENNA 50/8.6MG TAB PO SCH (20:49)
[2020-05-12] MEDS: CHECK fentaNYL PATCH PLACEMENT SCH ×2 (00:10→08:15)
[2020-05-12] MEDS: ADVANCED PROBIOTIC 1250 MG CAPSULE PO SCH (08:13)
[2020-05-12] MEDS: buPROPion XL 300 MG TABCR PO SCH (08:13)
[2020-05-12] MEDS: FERROUS GLUCONATE 324 MG TAB PO SCH (08:14)
[2020-05-12] MEDS: VITAMIN B COMPLEX TAB PO SCH (08:14)
[2020-05-12] MEDS: CHOLECALCIFEROL 1,000 UNITS 25 MCG TAB PO SCH (08:14)
[2020-05-12] MEDS: ASPIRIN 81 MG ECTAB PO SCH (08:15)
[2020-05-12 08:45] LABS: BUN Creatinine Ratio 11.5 (10-20); Calcium 8.7 mg/dl (8.5-10.1); Est GFR (African American) 31.8; Est GFR (Non-African American) 27.4; Potassium 3.5 mmol/L (3.5-5.1)
[2020-05-12] MEDS: INSULIN ASPART 100 UNITS/ML 3 ML PEN SC SCH ×2 (09:01→12:47)
[2020-05-12] MEDS: INSULIN GLARGINE SOLOSTAR 100 UNITS/ML 3 ML PEN SC SCH (09:03)
[2020-05-12 17:06] VITALS: BP 102/62; PULSE 84; TEMP 97.7; O2SAT 94
--- NOTE | 2020-05-18 08:03 | Discharge Summary ---
Date of Service May 12, 2020 Admission HPI Per Admitting Provider Debbie Hardy is a 65 year old female resident of [facility] who presents to the ER with dizziness, weakness, right shoulder pain. Her main concern currently is her left shoulder jerking which she reports started yesterday. History taking is limited from the patient due to short-term memory loss and unclear timing of events. She denies any fevers, chills, back/flank pain, increased urinary frequency, dysuria, urine incontinence, change in smell, color. No chest pain, abdominal pain, nausea, vomiting, change in bowels. Her daughter is power of sports attorney at bedside who reports her right shoulder has been bothering the patient for the last month. Progressively getting worse. Outpatient x-ray showed osteoarthritis and no further follow-up was done for this. She is concerned because the patient had osteomyelitis in her left shoulder with very similar complaints. At baseline the patient is wheelchair- bound. More confused than her baseline per patient's daughter. In the ER concern for WBC 26.36 with likely source of urine given history of recurrent UTIs and suggestive urinalysis. Due to history of ESBL and MRSA she was started on ertapenem and daptomycin. In addition creatinine elevated at 2.23 consistent with SOLEDAD - Fallon catheter placed. Admission Exam Per Admitting Provider Constitutional: well developed; + not well nourished and no acute distress Eyes: PERRL, conjunctivae normal, anicteric sclerae ENMT: Ears: no external ear abnormality Nose: no external nose abnormality Mouth: + dry oral mucous membranes Neck: trachea midline, no thyromegaly Respiratory: normal respiratory effort, lungs clear to auscultation Cardiovascular: Rate/Rhythm: regular rhythm and + tachycardic Heart Sounds: no murmur Extremities: normal capillary refill and + pedal edema (Trace bilateral ankles); no calf tenderness Gastrointestinal (Abdomen): Inspection/Auscultation: abdomen normal to inspe ction (Obese) and normal bowel sounds Percussion/Palpation: abdomen soft; abdomen nontender, no guarding and abdomen not rigid Musculoskeletal: no cyanosis or clubbing, extremities motor strength 5/5 Skin: no rashes, warm and dry (No areas of cellulitis) Neurologic: moves all extremities and awake; no focal motor deficits (No lateralizing deficit) and not confused Speech / Cognition: normal speech Motor/Sensory: no tremor and no pronator drift Psychiatric: Orientation: alert and oriented x 3 Affect: + anxious affect Genitourinary: no CVA tenderness Lymphatic: no cervical or axillary lymphadenopathy Principal Diagnosis Urinary tract infection Discharge Exam GENERAL : No acute distress. Morbidly obese. Unable to sit upright EYES: No icterus, gaze conjugate NOSE: No evidence of epistaxis MOUTH: No lesions or candidiasis NECK: Supple LUNGS: Fine crackles bilaterally. HEART: Regular, rate controlled ABDOMEN: Soft, NT, ND, BS Present EXTREMITIES: No LE edema, pedal pulses intact NEURO: A&OX3 Discharge Data Allergies Allergy/AdvReac Type Severity Reaction Status Date / Time Penicillins Allergy Unknown . Verified 05/17/20 00:11 pregabalin Allergy Unknown . Verified 05/17/20 00:11 tramadol Allergy Unknown . Verified 05/17/20 00:11 cefazolin [From Anc] Allergy Unknown Verified 05/17/20 00:11 ertapenem AdvReac Intermediate Confusion,H Verified 05/17/20 00:11 allucinatio ns Consultations 04/27/20 22:55 Consult Urology Routine 05/04/20 11:43 Consult Infectious Diseases Routine 05/05/20 09:09 Consult Neurology Routine Procedures Performed Operation Date: 05/05/20 10:20 Actual Procedures p cystoscopy, bilateral retrograde pyelography, bilateral Ureteral Stent Insertion - Tyree Toney, Ordered Studies 04/27/20 13:00 CT abd pelvis wo con Stat 04/29/20 00:08 MR brain wo con Routine 04/30/20 14:30 US renal/blad retro comp Routine 05/04/20 13:00 US renal/blad retro comp Routine 05/05/20 09:06 CT head/brain wo con Stat 05/05/20 13:00 FL retrograde includes kub Routine 05/06/20 09:00 FL lumbar puncture diagnostic Routine Hospital Course (1) Acute encephalopathy: Improved Patient states that when she is infection oftentimes this happens. She remembers the episodes of confusion this admission. Urinary tract infection with Klebsiella Patient also has positive MRSA nasal swab Leukocytosis is improving. Patient is afebrile. Received amphotericin via three-way catheter and continue a 7-day course of ertapenem Urology and infectious disease both consulted Further management of UTI per urology Discharge back to [facility] (2) Acute kidney injury: Patient appears to be at baseline on day of discharge (3) Anemia: Iron deficient anemia Gross hematuria, otherwise no active bleeding Hemoglobin stable at 9.7 with hematocrit of 1.8 Outpatient follow-up with gastroenterology due to report of positive Cologuard (4) T2DM (type 2 diabetes mellitus): Gunnar and Sherice as an outpatient Continue Lantus and sliding scale NovoLog while inpatient Hemoglobin A1c is 8.3 (5) Gross hematuria: Most likely due to acute UTI as well as Fallon catheter placement Hemoglobin is stable Follow-up with urology as an outpatient (6) History of MRSA infection: Repeat swab positive this admission No indication for treatment Continue isolation precautions at [facility] (7) GERD (gastroesophageal reflux disease): No current complaints Continue omeprazole as an outpatient (8) Hypokalemia: Magnesium and Potassium within normal limits at the time of discharge Continue to follow labs at [facility] per protocol (9) Anxiety and depression: Chronic pain Bupropion dosing corrected Continue buspirone 5 mg daily Resume Abilify on discharge. This was held during the hospital stay secondary to confusion Total Time Total Time Spent Total Time Spent (In Minutes): 45 minutes including discharge planning with case management to transfer back to [facility] Total Time Includes: Examination of the Patient, Discharge Planning, Medication Reconciliation and Communication With Other Providers Discharge Plan Discharge Items Patient Disposition: Transfer [facility] Reason For Visit: ANEMIA, UTI, RIGHT SHOULDER PAIN Discharge Diagnosis: Complicated Urinary tract infection Activity: Resume your previous activity Lifting: Gradually increase as tolerated Bathing: No limitations Exercise/Sports: Gradually increase as tolerated Weightbearing: Full weightbearing Non-emergency contact: Primary Care Provider Call non-emergency contact if: you have any medication questions, your symptoms worsen and you have a fever Follow-up/Referrals: Miles Carson [Primary Care Provider] - Diet: Carb Consistent or DM2 Addtl Attending Provider Instructions: You were admitted to the hospital on April 27, 2020 with a complicated urinary tract infection which caused confusion known his acute encephalopathy. You received IV antibiotics followed by antibiotics administered through your Fallon catheter. You completed your antibiotics yesterday and are doing well. You were tested for COVID-19 on April 27, 2020 as well as May 05, 2020. Both results were negative. He did have anemia with a low hemoglobin of 8.2 g/Nitza.On May 11, 2020 your hemoglobin was 9.7 g/Nitza. You were in isolation for a positive nasal swab of MRSA (methicillin-resistant staph aureus). This did not require treatment. You should follow-up with urology per their instructions for further management of your Fallon catheter.If you have any bleeding, increased pain, fever you should call the urology office. Continue with good handwashing technique as well as wearing a mask when not in your room at [facility]. Pending Studies at Discharge: No Stand-Alone Forms: My [facility] Skilled Items Patient informed of condition?: Yes DNR: Yes Discharge Level of Care: Other Communicable Disease: Yes (Nasal swab positive for MRSA) Discharge Prognosis: Stable Lines: None Urinary Catheter: Yes Medications and DC Order Prescriptions: New ferrous gluconate 324 mg (38 mg iron) Tablet 324 mg PO QAM Qty: 30 RF: 0 Continued mineral oil-isopropyl myristat Lotion 1 applic TOPICAL BID RF: 0 aripiprazole 5 mg tablet 5 mg PO QAM RF: 0 Tradjenta 5 mg Tablet 5 mg PO QAM RF: 0 Jardiance 25 mg Tablet 25 mg PO QAM RF: 0 acetaminophen [Tylenol] 325 mg Tablet 325 mg PO Q4H PRN (Reason: Fever Or Pain) RF: 0 meloxicam 15 mg Tablet 15 mg PO QAM RF: 0 sennosides-docusate sodium [Senokot-S] 8.6-50 mg Tablet 1 tab PO HS RF: 0 baclofen 10 mg Tablet 10 mg PO TID RF: 0 simvastatin 20 mg Tablet 20 mg PO HS RF: 0 buspirone 10 mg Tablet 10 mg PO BID RF: 0 aspirin 81 mg Tablet,Chewable 81 mg PO QAM RF: 0 dicyclomine 10 mg Capsule 10 mg PO Q6H PRN (Reason: abdominal cramping) RF: 0 fentanyl 12 mcg/hr Patch 72 Hour 1 patch TRANSDERMAL Q72H RF: 0 vitamin B complex Tablet 1 tab PO QAM RF: 0 cholecalciferol (vitamin D3) [Vitamin D3] 125 mcg (5,000 unit) Tablet 5,000 unit PO QAM RF: 0 D-Mannose 500mg Capsule 1,000 mg PO BID RF: 0 Discontinued naproxen 500 mg Tablet 500 mg PO BID RF: 0 No Action escitalopram oxalate 10 mg tablet 10 mg PO QAM RF: 0 oxybutynin chloride 5 mg tablet 10 mg PO HS RF: 0 Discharge Orders: Discharge Order (Routine); Ordered 05/12/20 Ordered By: Tl Veras/Other Patient Handouts: Managing Type 2 Diabetes Admission Data Admit Date/Time: 04/27/20 16:10 Attending Provider: Tay Mesa Admit Provider: Suleiman Avery Primary Care Provider: Miles Carson Other Providers: Nilson Jim ; Diego Cuba ; Hamida Marin ; Antony Chambers I. ; Johan Bhardwaj II ; Ale Santana ; Pio Gutierrez ; Jeremy Parrish Other Interventions: Discharge Summary Assessment (RN) Last Done: 05/12/20 16:45 Supervising Physician Co-Signing Physician Notes I supervised Tl Ferguson PA-C on this admission. I interviewed and examined the patient independently of him. We discussed the plan of care. The plan is as written in his note except for any following changes/exceptions: None Was feeling upset the day of discharge due to what she felt like were mistakes about her vitamins that had been put in the computer. I encouraged her to bring her meds in (or have her son bring them in) and reconcile them at [facility]. Coding Level of Care Code D/C Day Management >30 mins Diagnoses Acute encephalopathy G93.40 Acute kidney injury N17.9 Anemia D64.9 T2DM (type 2 diabetes mellitus) E11.9 Gross hematuria R31.0 History of MRSA infection Z86.14 GERD (gastroesophageal reflux disease) K21.9 Hypokalemia E87.6 Anxiety and depression F41.9; F32.9 Time Spent (min) 45
== END 2020-05-12 17:09 | DRG 659 ==
LOC: ED 09:57 → 2W 16:10 → SUATTDRO 16:10 → 2W 19:31 → 3E 05-03 18:50

== ENCOUNTER 2020-05-16 23:22 | Inpatient (IN) ==
[2020-05-16] MEDS ORDERED: ACETAMINOPHEN 1,000 MG/100 ML VIAL IV STA (23:38)
[2020-05-16] MEDS ORDERED: SODIUM CHLORIDE 0.9% 1000ML 1,000 ML IV SCH (23:45)
[2020-05-16] MEDS ORDERED: CEFEPIME 2,000 MG/20 ML VIAL IV STA (23:49)
--- NOTE | 2020-05-16 23:54 | Emergency Department Note ---
Impression & Plan Sepsis, Sepsis with metabolic encephalopathy, Pyelonephritis, Renal insufficiency ED Provider Note NAME: MARGE MERCEDES AGE: 65 SEX: F ARRIVES VIA: Ambulance INFORMANT: Patient, ED PROVIDER(S): Dano Naranjo MD CHIEF COMPLAINT: Fever, hematuria PLAN: Disposition: Admit MEDICAL DECISION MAKING: The patient is a 65-year-old woman with a past medical history of morbid obesity, recurrent UTIs/chronic cystitis, history of ESBL and MRSA UTIs, diabetes, osteoarthritis, chronic anemia who presents emergency department from [facility] for fevers and hematuria in setting of recent admission 04/27-05/12 for Klebsiella UTI as well as candidal urinary infection treated with amphotericin irrigation in addition to bilateral ureteral stent placement for bilateral hydronephrosis in the setting of acute renal f ailure with creatine to 2.2 from baseline fo 1.1. The patient was treated with a completed course of ertapenem over 7 days with improvement in her symptoms with ertapenem discontinued thereafter as it was also thought it may have contributed to her confusion/encephalopathy. This morning the patient had blood work drawn at [facility] which demonstrated a acute elevation in her WBC to 18 K and then she developed fevers later in the day. On arrival the patient is ill-appearing, febrile to 40.7, heart rate to 130 and blood pressure is stable. He has diminished breath sounds at the bases but is otherwise clear. She is encephalopathic with poor attention. She has no focal weakness. Abdomen is nontender/ EKG demonstrates sinus tachycardia without overt acute ischemia. Chest x-ray without acute cardiopulmonary process per my preliminary review. WBC 18.7, similar to this morning from lab work performed at [facility]. However this is elevated from the patient's discharge of WBC 8. H/H 11.4/36.1 improved from prior values. Platelets within normal limits. ABG with pH of 7.49 and PCO2 of 32 which may reflect a component of hyperventilation in the setting of the patient's fever on arrival. Chemistry without metabolic acidosis. Creatinine 2.2 within prior range of values. Lactate 1.6, within normal limits. Phosphorus 1.9 and electrolytes otherwise unremarkable. Troponin negative/undetectable. UA from the patient's catheter is suspicious for infection albeit with epithelial cells but with WBCs and 3+ bacteria. Patient comes from [facility] where there have been Covid cases the patient is in a isolated area that has not had any outbreak and Covid-19 and therefore unlikely at this time. However for completeness COVID-19 PCR was ordered and this was negative. The patient was ordered for empiric broad-spectrum antibiotics with daptomycin given her history of MRSA and cefepime for now. Ertapenem was deferred given previous concerns for possible effects on the patient's mental status and considering the patient's recent culture was not ESBL. I did review the patient's presentation and treatment plan with the patient's daughter (Kymberly [phone]) over the phone. Questions were answered. CT the abdomen pelvis was performed and demonstrated decreased bilateral hydroureteronephrosis in the setting of having interval placement of her bilateral ureteral stents. There is increased left perinephric stranding that is suggestive of pyelonephritis. CT of the head was negative for acute process. Upon re-evaluation, patient was somewhat improved and able to say her first name when asked. HR improved to 100s and BP stable. Case was discussed with Dr. Harris, [facility] hospitalist, who will evaluate the patient for admission. Triage Nursing notes reviewed and agree them. Additional history obtained from EMS Prior medical records reviewed Vital Signs: reviewed and remarkable for fevers, tachycardia. Differential diagnosis: Sepsis, UTI, pneumonia, metabolic, electrolyte abnormalities, cardiac sources, intracerebral event, toxicologic, neurologic, as well as other pathologies. ER treatment provided: See below. Diagnostics interpreted by me: ECG: Sinus tachycardia, 132 bpm, no ectopy, nonspecific ST abnormality, no overt ST elevation, QTc 450, QRS 84. Cardiac Monitoring: An order for continuous cardiac monitoring was placed and demonstrated sinus tachycardia, 132 bpm, no ectopy. Laboratory studies: See below Imaging studies: CXR: No acute cardiopulmonary process per my preliminary review. [facility] Preliminary Findings Only See Final Report For Complete Findings CT HEAD: Comparison: CT head 05/05/20. No ICH, mass-effect, or edema. Mild chronic small vessel ischemic changes. No skull fracture. Sinuses and mastoid air cells are clear. CT ABDOMEN & PELVIS Without Contrast: Comparison: CT abdomen and pelvis 04/27/20. Interval placement of bilateral ureteral stents, appropriately positioned. Decreased bilateral hydroureteronephrosis in comparison to prior exam. Increased left perinephric stranding in the interval, pyelonephritis not excluded. Correlate with urinalysis. Urinary bladder decompressed from Fallon catheter. Haziness of the bladder wall may reflect cystitis. Correlate with urinalysis. Normal uterus. Stable calcifications right hepatic lobe. Cholecystectomy. Spleen and pancreas are unremarkable. Adrenal glands are unremarkable. Appendix not identified. No bowel obstruction or inflammation. No free fluid or free air. Aortoiliac atherosclerosis without aneurysm. Stable chronic deformities of the bilateral proximal femurs. Stable severe osteoarthritis of both hip joints. No acute osseous findings. Radiologist: Tariq Parham M.D. Study ready at 01:30 and initial results transmitted at 01:45 Consultation(s): Case was discussed with Dr. Harris, [facility] hospitalist, who will evaluate the patient for admission. HPI: The patient is a 65-year-old woman with a past medical history of morbid obesity, recurrent UTIs/chronic cystitis, history of ESBL and MRSA UTIs, diabetes, osteoarthritis, chronic anemia who presents emergency department from [facility] for fevers and hematuria in setting of recent admission 04/27-05/12 for Klebsiella UTI as well as candidal urinary infection treated with amphotericin irrigation in addition to bilateral ureteral stent placement for bilateral hydronephrosis in the setting of acute renal failure with creatine to 2.2 from baseline fo 1.1. The patient was treated with a completed course of ertapenem over 7 days with improvement in her symptoms with ertapenem discontinued thereafter as it was also thought it may have contributed to her confusion/encephalopathy. This morning the patient had blood work drawn at [facility] which demonstrated a acute elevation in her WBC to 18 K and then she developed fevers later in the day. ROS: See above HPI for pertinent positives & negatives. A total of 10 systems reviewed and were otherwise negative. PAST MEDICAL HISTORY:See Below PAST SURGICAL HISTORY:See Below FAMILY HISTORY:See Below SOCIAL HISTORY:See Below HOME MEDICATIONS:See Below ALLERGIES:See Below VITALS:See Below PHYSICAL EXAMINATION: GENERAL: Awake, confused, ill-appearing, in no distress, BMI 47.5 HENT: Normocephalic, atraumatic. Oropharynx dry/cracked. EYES: Normal conjunctiva. Sclera non-icteric. NECK: Supple. No nuchal rigidity. FROM. No JVD. RESPIRATORY: Clear to auscultation. CARDIAC: Tachycardic rate, normal rhythm. Extremities warm and well perfused. Pulses equal. ABDOMEN: Soft, non-distended. No tenderness to palpation. No rebound or guarding. No masses. RECTAL: Deferred. MUSCULOSKELETAL: Chest examination reveals no tenderness. The back is symmetrical on inspection without obvious abnormality. There is no CVA tenderness to palpation. No joint edema. LOWER EXTREMITIES: Calves are equal size bilaterally and non-tender. No edema. No discoloration. NEURO: Normal sensorium. No sensory or motor deficits noted. SKIN: No rash or jaundice noted. ED COURSE: Critical Care: I have personally spent greater than 105 minutes of critical care time in the direct management of this patient. This includes bedside care, interpretation of diagnostic studies, and testing, discussion with consultants, patient, and family members, and other required patient management activities. This 105 minutes is in excess of all separately billable procedures. Dano Naranjo MD Past Med/Surg History Medical History (Updated 05/17/20 @ 05:00 by Dano Naranjo MD) Bladder spasms Bone infection Chronic pain Dysuria H/O: CVA (cerebrovascular accident) Hx: UTI (urinary tract infection) Incontinence Left thigh pain Lesion of bladder Leukocytosis Morbid obesity Osteomyelitis UTI (urinary tract infection) Surgical History History of cataract surgery S/P cholecystectomy Family History Mother , age 79 of esophageal cancer Hypertension Father , in mid 60s of an [place] Myocardial infarction Social History Smoking Status: Former smoker Tobacco Type: Cigarettes Age Quit Using Tobacco: 48; Second Hand Exposure: No; Hx Alcohol Use: No Hx Substance Use: No Preferred Language: Azeri Communication Ability: Impaired Visual Impairment: No Limitations Cook Barbecue Required: No Beliefs That Will Affect Care: None marital status: Current Living Situation: [facility] Current Living Situation Comment: [facility] current occupational status: retired Other Information That Helps Us Care for You: No Feels Safe at Home: Yes Safety Concerns: Feels Safe At This Time Assistive Devices: None Allergies Allergies Allergy/AdvReac Type Severity Reaction Status Date / Time Penicillins Allergy Unknown . Verified 05/17/20 00:11 pregabalin Allergy Unknown . Verified 05/17/20 00:11 tramadol Allergy Unknown . Verified 05/17/20 00:11 cefazolin [From Ancef] Allergy Unknown Verified 05/17/20 00:11 ertapenem AdvReac Intermediate Confusion,H Verified 05/17/20 00:11 allucinatio ns Home Meds Home Medications Medication Instructions Recorded Confirmed acetaminophen [Tylenol] 325 mg PO Q4H PRN 05/23/18 05/17/20 aspirin 81 mg PO QAM 05/23/18 05/16/20 baclofen 10 mg PO TID 05/23/18 05/17/20 buspirone 10 mg PO BID 05/23/18 05/17/20 dicyclomine 10 mg PO Q6H PRN 05/23/18 05/17/20 fentanyl 1 patch TRANSDERMAL Q72H 05/23/18 05/16/20 meloxicam 15 mg PO QAM 05/23/18 05/16/20 sennosides-docusate sodium 1 tab PO HS 05/23/18 05/17/20 [Senokot-S] simvastatin 20 mg PO HS 05/23/18 05/17/20 D-Mannose 500mg Capsule 1,000 mg PO BID 09/25/19 05/17/20 cholecalciferol (vitamin D3) 5,000 unit PO QAM 09/25/19 05/17/20 [Vitamin D3] vitamin B complex 1 tab PO QAM 09/25/19 05/17/20 Jardiance 25 mg PO QAM 04/27/20 05/16/20 Tradjenta 5 mg PO QAM 04/27/20 05/17/20 aripiprazole 5 mg PO QAM 04/27/20 05/16/20 mineral oil-isopropyl myristat 1 applic TOPICAL BID 04/27/20 05/17/20 escitalopram oxalate 10 mg PO QAM 05/16/20 05/16/20 oxybutynin chloride 10 mg PO HS 05/16/20 05/16/20 Previous Rx's Medication Instructions Recorded ferrous gluconate 324 mg PO QAM #30 tab 05/12/20 Results & Data (ED) Vital Signs Vital Signs - 24 hr 05/16/20 23:41 05/17/20 00:00 05/17/20 00:01 Temperature 40.7 C H Temperature Source Rectal Pulse Rate 130 H Pulse Rate [Right] Pulse Rhythm Regular Pulse Rhythm [Right] Pulse Strength Normal Pulse Strength [Right] Respiratory Rate 34 H Respiratory Effort / Characteristics Spontaneous Moaning Short of Breath Respiratory Depth Shallow Blood Pressure 134/82 Blood Pressure [Right Arm] Blood Pressure Mean 99 Blood Pressure Mean [Right Arm] Blood Pressure Position Lying Blood Pressure Position [Right Arm] Pulse Oximetry 93 93 93 Oxygen Delivery Method Room Air Room Air Room Air Sepsis Recent Fever Within 48 Hours Yes Sepsis New/Unexplained Change in Mental Status Yes Sepsis Action Taken by Nursing Physician Notified 05/17/20 00:22 05/17/20 00:44 Temperature Temperature Source Pulse Rate Pulse Rate [Right] 120 H Pulse Rhythm Pulse Rhythm [Right] Regular Pulse Strength Pulse Strength [Right] Normal Respiratory Rate 34 H Respiratory Effort / Characteristics Spontaneous Moaning Spontaneous Moaning Short of Breath Respiratory Depth Blood Pressure Blood Pressure [Right Arm] 126/80 Blood Pressure Mean Blood Pressure Mean [Right Arm] 95 Blood Pressure Position Blood Pressure Position [Right Arm] Lying Pulse Oximetry 94 94 Oxygen Delivery Method Room Air Room Air Sepsis Recent Fever Within 48 Hours Sepsis New/Unexplained Change in Mental Status Sepsis Action Taken by Nursing Laboratory Data Attestation: I reviewed the patient's lab results. Result diagrams: 05/17/20 00:09 05/17/20 00:09 Lab Results 05/16/20 05/17/20 05/17/20 Range/Units 23:59 00:09 00:09 WBC 18.75 H (4.8-10.8) K/uL RBC 4.16 L (4.2-5.4) M/uL Hgb 11.4 L (12.0-16.0) g/dL POC Hgb (12.0-16.0) g/dl Hct 36.1 L (37-47) % POC Hct (37-47) % MCV 86.8 (80-100) fL MCH 27.4 (25-34) pg MCHC 31.6 L (32-36) g/dL RDW Std Deviation 74.4 H (36.4-46.3) fL RDW Coeff of Katina 24.0 H (11.5-14.5) % Plt Count 294 (130-400) K/uL MPV 10.1 (7.4-10.4) fL Immature Gran % (Auto) 0.3 % Neut % (Auto) 87.1 % Lymph % (Auto) 5.6 % Mills % (Auto) 6.9 % Eos % (Auto) 0.0 % Baso % (Auto) 0.1 % Neut # (Auto) 16.32 H (1.4-6.5) K/uL Lymph # (Auto) 1.05 L (1.2-3.4) K/uL Mills # (Auto) 1.30 H (0.11-0.59) K/uL Eos # (Auto) 0.00 (0-0.5) K/uL Baso # (Auto) 0.02 (0-0.2) K/uL Immature Gran # (Auto) 0.06 H (0.00-0.02) K/uL Polychromasia 1+ PT (9.0-12.0) Seconds INR (0.9-1.1) APTT (21.0-31.0) Seconds PTT Ratio ABG pH (7.35-7.45) ABG pCO2 (35-46) mmHg ABG pO2 (80-95) mmHg ABG HCO3 (19-24) mmol/L ABG O2 Saturation (90-95) % ABG Base Excess (-9-1.8) mEq/L Yehuda Test (Pos) Barometric Pressure mm/Hg Oxygen Given POC Sodium (135-144) mmol/L Sodium 141 (136-145) mmol/L POC Potassium (3.3-5.0) mmol/L Potassium 4.0 (3.5-5.1) mmol/L POC Chloride (101-112) mmol/L Chloride 110 H (98-107) mmol/L Carbon Dioxide 24 (21-32) mmol/L POC Total CO2 (24-31) mmol/L Anion Gap 7.0 (3-11) POC Anion Gap (16-25) mmol/L POC BUN (7-18) mg/dl BUN 27 H (7-18) mg/dl Creatinine 2.20 H (0.6-1.2) mg/dl POC Creatinine (0.6-1.3) mg/dl Est Cr Clr Drug Dosing 35.6 ml/min Est GFR ( Amer) 26.8 Est GFR (Non-Af Amer) 23.1 BUN/Creatinine Ratio 12.2 (10-20) Glucose 220 H (70-99) mg/dl POC Glucose (other) (70-99) mg/dl Lactate (0.4-2.0) mmol/L Calcium 8.8 (8.5-10.1) mg/dl POC Ioniz Calcium Frank (1.12-1.32) mmol/l Phosphorus 1.9 L (2.5-4.9) mg/dl Magnesium 2.2 (1.8-2.4) mg/dl Total Bilirubin 0.6 (0.2-1) mg/dl Direct Bilirubin 0.2 (0-0.2) mg/dl AST 32 (15-37) U/L ALT 30 (12-78) U/L Alkaline Phosphatase 107 (45-117) U/L Troponin I < 0.015 (0-0.045) ng/ml Total Protein 8.5 H (6.4-8.2) gm/dl Albumin 2.5 L (3.4-5.0) gm/dl Globulin 6.0 H (2.5-4.0) gm/dl Albumin/Globulin Ratio 0.4 L (0.9-2) Procalcitonin (0-0.5) ng/ml Urine Color Red Urine Appearance Turbid A (Clear) Urine pH >= 9.0 H (4.5-7.5) Ur Specific [place] 1.021 (1.000-1.030) Urine Protein 2+ H (Negative) Urine Glucose (UA) 3+ H (Negative) Urine Ketones Negative (Negative) Urine Blood 3+ H (Negative) Urine Nitrite Negative (Negative) Urine Bilirubin Negative (Negative) Urine Urobilinogen Negative (Negative) Ur Leukocyte Esterase 3+ H (Negative) Urine WBC (Auto) >30 H (0-5) /hpf Urine RBC (Auto) >30 H (0-4) /hpf U Hyaline Cast (Auto) 0 (0-5) /lpf U Epithel Cells (Auto) >30 H (0-5) /lpf Urine Bacteria (Auto) 3+ H (Negative) COVID-19 Eval Order COVID-19 PCR (Negative) 05/17/20 05/17/20 05/17/20 Range/Units 00:09 00:09 00:09 WBC (4.8-10.8) K/uL RBC (4.2-5.4) M/uL Hgb (12.0-16.0) g/dL POC Hgb 11.9 L (12.0-16.0) g/dl Hct (37-47) % POC Hct 35 L (37-47) % MCV (80-100) fL MCH (25-34) pg MCHC (32-36) g/dL RDW Std Deviation (36.4-46.3) fL RDW Coeff of Katina (11.5-14.5) % Plt Count (130-400) K/uL MPV (7.4-10.4) fL Immature Gran % (Auto) % Neut % (Auto) % Lymph % (Auto) % Mills % (Auto) % Eos % (Auto) % Baso % (Auto) % Neut # (Auto) (1.4-6.5) K/uL Lymph # (Auto) (1.2-3.4) K/uL Mills # (Auto) (0.11-0.59) K/uL Eos # (Auto) (0-0.5) K/uL Baso # (Auto) (0-0.2) K/uL Immature Gran # (Auto) (0.00-0.02) K/uL Polychromasia PT (9.0-12.0) Seconds INR (0.9-1.1) APTT (21.0-31.0) Seconds PTT Ratio ABG pH (7.35-7.45) ABG pCO2 (35-46) mmHg ABG pO2 (80-95) mmHg ABG HCO3 (19-24) mmol/L ABG O2 Saturation (90-95) % ABG Base Excess (-9-1.8) mEq/L Yehuda Test (Pos) Barometric Pressure mm/Hg Oxygen Given POC Sodium 142 (135-144) mmol/L Sodium (136-145) mmol/L POC Potassium 4.1 (3.3-5.0) mmol/L Potassium (3.5-5.1) mmol/L POC Chloride 109 (101-112) mmol/L Chloride (98-107) mmol/L Carbon Dioxide (21-32) mmol/L POC Total CO2 24 (24-31) mmol/L Anion Gap (3-11) POC Anion Gap 15.0 L (16-25) mmol/L POC BUN 26 H (7-18) mg/dl BUN (7-18) mg/dl Creatinine (0.6-1.2) mg/dl POC Creatinine 2.0 H (0.6-1.3) mg/dl Est Cr Clr Drug Dosing ml/min Est GFR ( Amer) Est GFR (Non-Af Amer) BUN/Creatinine Ratio (10-20) Glucose (70-99) mg/dl POC Glucose (other) 227 H (70-99) mg/dl Lactate 1.6 (0.4-2.0) mmol/L Calcium (8.5-10.1) mg/dl POC Ioniz Calcium Frank 1.01 L (1.12-1.32) mmol/l Phosphorus (2.5-4.9) mg/dl Magnesium (1.8-2.4) mg/dl Total Bilirubin (0.2-1) mg/dl Direct Bilirubin (0-0.2) mg/dl AST (15-37) U/L ALT (12-78) U/L Alkaline Phosphatase (45-117) U/L Troponin I (0-0.045) ng/ml Total Protein (6.4-8.2) gm/dl Albumin (3.4-5.0) gm/dl Globulin (2.5-4.0) gm/dl Albumin/Globulin Ratio (0.9-2) Procalcitonin 5.12 H (0-0.5) ng/ml Urine Color Urine Appearance (Clear) Urine pH (4.5-7.5) Ur Specific [place] (1.000-1.030) Urine Protein (Negative) Urine Glucose (UA) (Negative) Urine Ketones (Negative) Urine Blood (Negative) Urine Nitrite (Negative) Urine Bilirubin (Negative) Urine Urobilinogen (Negative) Ur Leukocyte Esterase (Negative) Urine WBC (Auto) (0-5) /hpf Urine RBC (Auto) (0-4) /hpf U Hyaline Cast (Auto) (0-5) /lpf U Epithel Cells (Auto) (0-5) /lpf Urine Bacteria (Auto) (Negative) COVID-19 Eval Order COVID-19 PCR (Negative) 11/01/20 11/01/20 11/01/20 Range/Units 00:10 00:22 00:23 WBC (4.8-10.8) K/uL RBC (4.2-5.4) M/uL Hgb (12.0-16.0) g/dL POC Hgb (12.0-16.0) g/dl Hct (37-47) % POC Hct (37-47) % MCV (80-100) fL MCH (25-34) pg MCHC (32-36) g/dL RDW Std Deviation (36.4-46.3) fL RDW Coeff of Katina (11.5-14.5) % Plt Count (130-400) K/uL MPV (7.4-10.4) fL Immature Gran % (Auto) % Neut % (Auto) % Lymph % (Auto) % Mills % (Auto) % Eos % (Auto) % Baso % (Auto) % Neut # (Auto) (1.4-6.5) K/uL Lymph # (Auto) (1.2-3.4) K/uL Mills # (Auto) (0.11-0.59) K/uL Eos # (Auto) (0-0.5) K/uL Baso # (Auto) (0-0.2) K/uL Immature Gran # (Auto) (0.00-0.02) K/uL Polychromasia PT 12.8 H (9.0-12.0) Seconds INR 1.2 H (0.9-1.1) APTT 21.9 (21.0-31.0) Seconds PTT Ratio 0.8 ABG pH 7.49 H (7.35-7.45) ABG pCO2 32 L (35-46) mmHg ABG pO2 71 L (80-95) mmHg ABG HCO3 24 (19-24) mmol/L ABG O2 Saturation 94.8 (90-95) % ABG Base Excess 1.0 (-9-1.8) mEq/L Yehuda Test Pos (Pos) Barometric Pressure 740.7 mm/Hg Oxygen Given ROOM AIR POC Sodium (135-144) mmol/L Sodium (136-145) mmol/L POC Potassium (3.3-5.0) mmol/L Potassium (3.5-5.1) mmol/L POC Chloride (101-112) mmol/L Chloride (98-107) mmol/L Carbon Dioxide (21-32) mmol/L POC Total CO2 (24-31) mmol/L Anion Gap (3-11) POC Anion Gap (16-25) mmol/L POC BUN (7-18) mg/dl BUN (7-18) mg/dl Creatinine (0.6-1.2) mg/dl POC Creatinine (0.6-1.3) mg/dl Est Cr Clr Drug Dosing ml/min Est GFR ( Amer) Est GFR (Non-Af Amer) BUN/Creatinine Ratio (10-20) Glucose (70-99) mg/dl POC Glucose (other) (70-99) mg/dl Lactate (0.4-2.0) mmol/L Calcium (8.5-10.1) mg/dl POC Ioniz Calcium Frank (1.12-1.32) mmol/l Phosphorus (2.5-4.9) mg/dl Magnesium (1.8-2.4) mg/dl Total Bilirubin (0.2-1) mg/dl Direct Bilirubin (0-0.2) mg/dl AST (15-37) U/L ALT (12-78) U/L Alkaline Phosphatase (45-117) U/L Troponin I (0-0.045) ng/ml Total Protein (6.4-8.2) gm/dl Albumin (3.4-5.0) gm/dl Globulin (2.5-4.0) gm/dl Albumin/Globulin Ratio (0.9-2) Procalcitonin (0-0.5) ng/ml Urine Color Urine Appearance (Clear) Urine pH (4.5-7.5) Ur Specific [place] (1.000-1.030) Urine Protein (Negative) Urine Glucose (UA) (Negative) Urine Ketones (Negative) Urine Blood (Negative) Urine Nitrite (Negative) Urine Bilirubin (Negative) Urine Urobilinogen (Negative) Ur Leukocyte Esterase (Negative) Urine WBC (Auto) (0-5) /hpf Urine RBC (Auto) (0-4) /hpf U Hyaline Cast (Auto) (0-5) /lpf U Epithel Cells (Auto) (0-5) /lpf Urine Bacteria (Auto) (Negative) COVID-19 Eval Order Covid19 Done at [facility] COVID-19 PCR (Negative) 05/17/20 Range/Units 00:23 WBC (4.8-10.8) K/uL RBC (4.2-5.4) M/uL Hgb (12.0-16.0) g/dL POC Hgb (12.0-16.0) g/dl Hct (37-47) % POC Hct (37-47) % MCV (80-100) fL MCH (25-34) pg MCHC (32-36) g/dL RDW Std Deviation (36.4-46.3) fL RDW Coeff of Katina (11.5-14.5) % Plt Count (130-400) K/uL MPV (7.4-10.4) fL Immature Gran % (Auto) % Neut % (Auto) % Lymph % (Auto) % Mills % (Auto) % Eos % (Auto) % Baso % (Auto) % Neut # (Auto) (1.4-6.5) K/uL Lymph # (Auto) (1.2-3.4) K/uL Mills # (Auto) (0.11-0.59) K/uL Eos # (Auto) (0-0.5) K/uL Baso # (Auto) (0-0.2) K/uL Immature Gran # (Auto) (0.00-0.02) K/uL Polychromasia PT (9.0-12.0) Seconds INR (0.9-1.1) APTT (21.0-31.0) Seconds PTT Ratio ABG pH (7.35-7.45) ABG pCO2 (35-46) mmHg ABG pO2 (80-95) mmHg ABG HCO3 (19-24) mmol/L ABG O2 Saturation (90-95) % ABG Base Excess (-9-1.8) mEq/L Yehuda Test (Pos) Barometric Pressure mm/Hg Oxygen Given POC Sodium (135-144) mmol/L Sodium (136-145) mmol/L POC Potassium (3.3-5.0) mmol/L Potassium (3.5-5.1) mmol/L POC Chloride (101-112) mmol/L Chloride (98-107) mmol/L Carbon Dioxide (21-32) mmol/L POC Total CO2 (24-31) mmol/L Anion Gap (3-11) POC Anion Gap (16-25) mmol/L POC BUN (7-18) mg/dl BUN (7-18) mg/dl Creatinine (0.6-1.2) mg/dl POC Creatinine (0.6-1.3) mg/dl Est Cr Clr Drug Dosing ml/min Est GFR ( Amer) Est GFR (Non-Af Amer) BUN/Creatinine Ratio (10-20) Glucose (70-99) mg/dl POC Glucose (other) (70-99) mg/dl Lactate (0.4-2.0) mmol/L Calcium (8.5-10.1) mg/dl POC Ioniz Calcium Frank (1.12-1.32) mmol/l Phosphorus (2.5-4.9) mg/dl Magnesium (1.8-2.4) mg/dl Total Bilirubin (0.2-1) mg/dl Direct Bilirubin (0-0.2) mg/dl AST (15-37) U/L ALT (12-78) U/L Alkaline Phosphatase (45-117) U/L Troponin I (0-0.045) ng/ml Total Protein (6.4-8.2) gm/dl Albumin (3.4-5.0) gm/dl Globulin (2.5-4.0) gm/dl Albumin/Globulin Ratio (0.9-2) Procalcitonin (0-0.5) ng/ml Urine Color Urine Appearance (Clear) Urine pH (4.5-7.5) Ur Specific [place] (1.000-1.030) Urine Protein (Negative) Urine Glucose (UA) (Negative) Urine Ketones (Negative) Urine Blood (Negative) Urine Nitrite (Negative) Urine Bilirubin (Negative) Urine Urobilinogen (Negative) Ur Leukocyte Esterase (Negative) Urine WBC (Auto) (0-5) /hpf Urine RBC (Auto) (0-4) /hpf U Hyaline Cast (Auto) (0-5) /lpf U Epithel Cells (Auto) (0-5) /lpf Urine Bacteria (Auto) (Negative) COVID-19 Eval Order COVID-19 PCR NEGATIVE (Negative) Administered Medications Aztreonam 2,000 mg/ Dextrose 110 mls @ 100 mls/hr IV Q8H [facility]; Protocol Stop: 05/27/20 02:59 Last Admin: 05/17/20 02:53 Dose: 100 mls/hr Documented by: [id number] Sodium Chloride (Nss 1000ml) 1,000 mls @ 125 mls/hr IV .Q8H ELAN Stop: 06/16/20 02:13 Last Admin: 05/17/20 02:54 Dose: 125 mls/hr Documented by: [id number] Voriconazole 630 mg/ Sodium (Chloride) 250 mls @ 125 mls/hr IV TODAY@0400 ELAN Stop: 05/17/20 05:59 Last Admin: 05/17/20 04:10 Dose: 125 mls/hr Documented by: [id number] Miscellaneous Information (Daptomycin Consult Active) 1 ea N/A UD PRN PRN Reason: Consult Stop: 06/16/20 00:04 Last Admin: 05/17/20 00:32 Dose: 1 ea Documented by: [id number] Discontinued Medications Acetaminophen (Ofirmev) 1,000 mg in 100 mls @ 400 mls/hr IV NOW STA Stop: 05/16/20 23:52 Last Infusion: 05/17/20 00:31 Dose: 0 mls/hr Documented by: [id number] Admin: 05/17/20 00:11 Dose: 400 mls/hr Documented by: [id number] Sodium Chloride (Nss 1000ml) 1,000 mls @ 999 mls/hr IV .Q1H1M ELAN Stop: 05/17/20 02:41 Last Infusion: 05/17/20 01:36 EST Dose: 0 mls/hr Documented by: [id number] Admin: 05/17/20 01:35 EDT Dose: 999 mls/hr Documented by: [id number] Sodium Chloride (Nss 1000ml) 1,000 mls @ 999 mls/hr IV .Q1H1M ELAN Stop: 05/17/20 00:42 Last Infusion: 05/17/20 01:15 EDT Dose: 0 mls/hr Documented by: [id number] Admin: 05/17/20 00:11 Dose: 999 mls/hr Documented by: [id number] Sodium Chloride (Nss 1000ml) 1,000 mls @ 999 mls/hr IV .Q1H1M ELAN Stop: 05/17/20 01:41 EST Last Infusion: 05/17/20 01:35 EDT Dose: 0 mls/hr Documented by: [id number] Admin: 05/17/20 00:29 Dose: 999 mls/hr Documented by: [id number] Cefepime HCl (Maxipime) 2,000 mg in 20 mls @ 5 mls/min IV NOW STA; Protocol Stop: 05/16/20 23:52 Last Admin: 05/17/20 00:36 Dose: 5 mls/min Documented by: [id number] Daptomycin 525 mg/ Syringe 10.5 mls @ 5.25 mls/min IV NOW ONE; Protocol Stop: 05/17/20 00:06 Last Admin: 05/17/20 00:28 Dose: 5.25 mls/min Documented by: [id number] Discharge Plan Visit Data Chief Complaint: Hematuria Stated Complaint: BLOOD IN URINE/FEVER ED Provider: Dano Naranjo Discharge Problem: Sepsis, Sepsis with metabolic encephalopathy, Pyelonephritis, Renal insufficiency Patient Disposition: Admitted As Inpatient Discharge Instructions Interventions: ED Discharge Assessment Last Done: 05/17/20 01:48 Discharge Problem: Sepsis Qualifiers: Sepsis type: sepsis due to unspecified organism Sepsis acute organ dysfunction status: with acute organ dysfunction Severe sepsis acute organ dysfunction type: encephalopathy Severe sepsis shock status: without septic shock Qualified Code(s): A41.9 - Sepsis, unspecified organism
[2020-05-17] MEDS ORDERED: DAPTOmycin 525 MG in SYRINGE 0 ML IV ONE (00:05)
[2020-05-17 00:11] LABS: Appearance Urine Turbid (Clear); Bacteria Urine Automated 3+ (Negative); Bilirubin Urine Negative (Negative); Blood Urine 3+ (Negative); Color Urine Red; Epithelial Cell Urine Auto >30 /lpf (0-5); Glucose Urine UA 3+ (Negative); Ketones Urine Negative (Negative); Leukocyte Esterase Urine 3+ (Negative); Nitrite Urine Negative (Negative); RBC Urine Automated >30 /hpf (0-4); Specific Gravity Urine 1.021 (1.000-1.030); Urobilinogen Urine Negative (Negative); WBC Urine Automated >30 /hpf (0-5); pH Urine >= 9.0 (4.5-7.5)
[2020-05-17 00:19] LABS: Basophils # (auto) 0.02 K/uL (0-0.2); Basophils % (auto) 0.1 %; Hematocrit (blood only) 36.1 % (37-47); Hemoglobin 11.4 g/dL (12.0-16.0); Immature Granulocytes # (auto) 0.06 K/uL (0.00-0.02); Immature Granulocytes % (auto) 0.3 %; Lymphocytes # (auto) 1.05 K/uL (1.2-3.4); Lymphocytes % (auto) 5.6 %; Mean Corpuscular Hemoglobin 27.4 pg (25-34); Mean Corpuscular Hgb Conc 31.6 g/dL (32-36); Mean Corpuscular Volume 86.8 fL (80-100); Mean Platelet Volume 10.1 fL (7.4-10.4); Monocytes % (auto) 6.9 %; Neutrophils # (auto) 16.32 K/uL (1.4-6.5); Neutrophils % (auto) 87.1 %; Platelet Count 294 K/uL (130-400); RDW Standard Deviation 74.4 fL (36.4-46.3); Red Blood Count 4.16 M/uL (4.2-5.4); White Blood Count 18.75 K/uL (4.8-10.8)
[2020-05-17 00:26] LABS: iSTAT Hemoglobin 11.9 g/dl (12.0-16.0); iSTAT Ionized Calcium 1.01 mmol/l (1.12-1.32); iSTAT Potassium 4.1 mmol/L (3.3-5.0)
[2020-05-17 00:27] LABS: HCO3 ABG 24 mmol/L (19-24); Oxygen Saturation ABG 94.8 % (90-95); PCO2 ABG 32 mmHg (35-46); PO2 ABG 71 mmHg (80-95); pH ABG 7.49 (7.35-7.45)
[2020-05-17 00:31] LABS: Allen Test Pos (Pos)
[2020-05-17 00:38] LABS: Alanine Aminotransferase 30 U/L (12-78); Albumin Level 2.5 gm/dl (3.4-5.0); Aspartate Aminotransferase 32 U/L (15-37); BUN Creatinine Ratio 12.2 (10-20); Bilirubin Direct 0.2 mg/dl (0-0.2); Blood Urea Nitrogen 27 mg/dl (7-18); Calcium 8.8 mg/dl (8.5-10.1); Carbon Dioxide 24 mmol/L (21-32); Chloride 110 mmol/L (98-107); Creatinine Clr Calc Pharmacy 35.6 ml/min; Est GFR (African American) 26.8; Est GFR (Non-African American) 23.1; Glucose 220 mg/dl (70-99); Magnesium 2.2 mg/dl (1.8-2.4); Sodium 141 mmol/L (136-145)
[2020-05-17] MEDS ORDERED: SODIUM CHLORIDE 0.9% 1000ML 1,000 ML IV SCH ×2 (00:42→01:42)
[2020-05-17 00:43] LABS: Albumin Globulin Ratio 0.4 (0.9-2); Alkaline Phosphatase 107 U/L (45-117); Bilirubin,Total 0.6 mg/dl (0.2-1); Phosphorus 1.9 mg/dl (2.5-4.9); Total Protein 8.5 gm/dl (6.4-8.2); Troponin I < 0.015 ng/ml (0-0.045)
[2020-05-17 00:44] LABS: INR 1.2 (0.9-1.1); Partial Thromboplastin Ratio 0.8; Partial Thromboplastin Time 21.9 Seconds (21.0-31.0); Prothrombin Time 12.8 Seconds (9.0-12.0)
[2020-05-17 00:49] LABS: Protein Urine 2+ (Negative); Sulfosalicylic Acid Urine Positive (Negative)
[2020-05-17 00:59] LABS: Cast Urine Automated 0 /lpf (0-5)
[2020-05-17 01:14] LABS: Polychromasia 1+
--- NOTE | 2020-05-17 01:20 | History & Physical Report ---
Date of Service May 17, 2020 Assessment & Plan (1) Sepsis: Dalia garcia is a 65-year-old female with a past medical history of ESBL/MRSA urinary tract infections with recent ureteral stent placement and ARF/SOLEDAD who presents as a readmission after return of fevers to 105 F and toxic appearance suspected due to recurrent UTI with concern for new left pyelonephritis Sepsis 2/2 pyelonephritis, complicated, with potentially infected stents - History of ESBL/MRSA UTI - Ertapenem previously stopped after treatment course, thought to have cause delirium/agitation - E. Ecoli ESBL sensitive to ERTA prior UC Febrile on admission Leukocytosis to 18.75, neutrophilic predominance ABG 7.4 //24 Creatinine 2.2, BUN 27 Lactate normal at 1.6 - Aztreonam/Dapto/Vori - CT-Ab: Interval placement of bilateral ureteral stents, appropriately positioned. Decreased bilateral hydroureteronephrosis in comparison to prior exam. Increased left perinephric stranding in the interval, pyelonephritis not excluded.Urinary bladder decompressed from Fallon catheter. Haziness of the bladder wall may reflect cystitis. - Given fever to 105*F, ill appearance, and indwelling potentially infected stents will cover with Aztreonam/Dapto for hx of ESBL/MRSA and voriconazole for hx of sonja. - Aztreonam 2g Q8H. Dose reduce to 1g if CrCl drops to 10-30 - Continue Daptomycin - Voriconazole 6mpk BID x2 doses then 4mpk (780mg x2 BID, then 520mg BID). Dosing discussed with pharmacy. - CBC, CMP daily - S/p 3L NSS - Continue NSS 130cc/hr. No hx reduced EF Tylenol 1 g every 8 hours IV Urology consulted for stent evaluation UA infected appearing, UC pending Blood cultures pending Covid negative Hx of SOLEDAD 2/2 obstruction - Pt with ureteral stend placement 05/05/2020 - CT as above - Cr at 2.0 Fluid management as above No obstruction appreciated on updated CT, potassium 4.1 BMP daily Depression Buspirone, aripiprazole, escitalopram held for altered mental status Chronic pain Erik patch held for altered mental status, Tylenol 1 g every 8 hours as above DVT prophylaxis: Heparin Diet: N.p.o. Fluids: NSS 125 cc/h CODE STATUS: DNR paperwork completed and noted on admission. Disposition: U (2) Incontinence: (3) Hx: UTI (urinary tract infection): History of Present Illness Chief Complaint: Fever, sepsis Primary Care Provider: Devante Blairperriviet Dalia is a 65-year-old woman with a past medical history of recurrent UTIs, ESBL/MRSA UTIs with indwelling catheter, diabetes, osteoarthritis, chronic anemia, SOLEDAD/ARF, and obesity who presents as a readmission from [facility] after the return of fevers and hematuria following an admission from 04/27 through 05/12 for a Klebsiella and candidal UTI. Subjective history not available due to reduced consciousness. By collateral history patient with reduced speech and cognitive function at baseline. Allergies Allergy/AdvReac Type Severity Reaction Status Date / Time Penicillins Allergy Unknown . Verified 05/17/20 00:11 pregabalin Allergy Unknown . Verified 05/17/20 00:11 tramadol Allergy Unknown . Verified 05/17/20 00:11 cefazolin [From Ancef] Allergy Unknown Verified 05/17/20 00:11 ertapenem AdvReac Intermediate Confusion,H Verified 05/17/20 00:11 allucinatio ns Home Medications Home Medications Medication Instructions Recorded Confirmed Type acetaminophen [Tylenol] 325 mg PO Q4H PRN 05/23/18 05/17/20 History aspirin 81 mg PO QAM 05/23/18 05/16/20 History baclofen 10 mg PO TID 05/23/18 05/17/20 History buspirone 10 mg PO BID 05/23/18 05/17/20 History dicyclomine 10 mg PO Q6H PRN 05/23/18 05/17/20 History fentanyl 1 patch TRANSDERMAL Q72H 05/23/18 05/16/20 History meloxicam 15 mg PO QAM 05/23/18 05/16/20 History sennosides-docusate sodium 1 tab PO HS 05/23/18 05/17/20 History [Senokot-S] simvastatin 20 mg PO HS 05/23/18 05/17/20 History D-Mannose 500mg Capsule 1,000 mg PO BID 09/25/19 05/17/20 History cholecalciferol (vitamin D3) 5,000 unit PO QAM 09/25/19 05/17/20 History [Vitamin D3] vitamin B complex 1 tab PO QAM 09/25/19 05/17/20 History Jardiance 25 mg PO QAM 04/27/20 05/16/20 History Tradjenta 5 mg PO QAM 04/27/20 05/17/20 History aripiprazole 5 mg PO QAM 04/27/20 05/16/20 History mineral oil-isopropyl myristat 1 applic TOPICAL BID 04/27/20 05/17/20 History ferrous gluconate 324 mg PO QAM #30 tab 05/12/20 05/16/20 Rx escitalopram oxalate 10 mg PO QAM 05/16/20 05/16/20 History oxybutynin chloride 10 mg PO HS 05/16/20 05/16/20 History Past Med/Surg History Medical History Bladder spasms Bone infection Chronic pain Dysuria H/O: CVA (cerebrovascular accident) Hx: UTI (urinary tract infection) Incontinence Left thigh pain Lesion of bladder Leukocytosis Morbid obesity Osteomyelitis UTI (urinary tract infection) Surgical History History of cataract surgery S/P cholecystectomy Family History Mother , age 79 of esophageal cancer Hypertension Father , in mid 60s of an [place] Myocardial infarction Social History Smoking Status: Former smoker Tobacco Type: Cigarettes Age Quit Using Tobacco: 48; Second Hand Exposure: No; Hx Alcohol Use: No Hx Substance Use: No Preferred Language: Montenegrin Communication Ability: Impaired Visual Impairment: No Limitations Unix Administrator Required: No Beliefs That Will Affect Care: None marital status: Current Living Situation: Residential Current Living Situation Comment: [facility] current occupational status: retired Other Information That Helps Us Care for You: No Feels Safe at Home: Yes Safety Concerns: Feels Safe At This Time Assistive Devices: None Review of Systems Review of Systems: Unobtainable due to cognitive status and Unobtainable due to reduced consciousness Physical Exam Physical Exam: General: Obtunded. Appears ill. Diaphoretic. HEENT: Atraumatic, normocephalic. Pupils equal and reactive to light and accommodation. Response to ocular orbital pressure, localizes pain before falling back asleep. Pulm: CTAB A&P. -wheezes, -rales, -rhonchi. Symmetrical chest rise. No increase work of breathing. No respiratory distress. Cardiac: Tachycardic, -mrg. Radial pulses intact and symmetrical. Abdominal: Obese, soft, no involuntary guarding Extremities: PT/radial pulses intact. No pitting edema. Results & Data Results & Data ([facility]) Vital Signs (Past 12 Hours) Vital Signs Temp Pulse Pulse Resp BP BP Pulse Ox 05/17/20 00:44 94 05/17/20 00:22 120 H 34 H 126/80 94 05/17/20 00:01 93 05/17/20 00:00 93 05/16/20 23:41 40.7 C H 130 H 34 H 134/82 93 Supervising Physician Co-Signing Physician Notes Attending addendum: I have physically seen this patient, have supervised the medical residents ac tivities, and agree with the H&P unless as otherwise noted. Assessment and Plan: Sepsis due to UTI- Temperature 105.3 F in the ED tonight History of ESBL E. coli, Klebsiella and MRSA, and Sonja glabrata. Concerns regarding possible adverse reaction to ertapenem. Placed on daptomycin and aztreonam IV for antibacterials. Placed on voriconazole for Sonja antifungal treatment. Follow urine culture and sensitivity results Consult urology regarding ureteral stents placed on 05/05/2020 IV fluids Remaining orders and notations as noted Resident Activity Tracking Resident Involvement: Resident Care Provided Care Provided: Adult Hospital Medicine (1) Sepsis Sepsis type: sepsis due to unspecified organism
[2020-05-17] MEDS ORDERED: VORICONAZOLE IV SCH ×2 (02:14→04:00)
[2020-05-17] MEDS ORDERED: GLUCOSE 40% GEL 15 GM TUBE PO PRN (02:14)
[2020-05-17] MEDS ORDERED: SODIUM CHLORIDE 0.9% IV SCH ×2 (02:14→04:00)
[2020-05-17] MEDS ORDERED: CARBOHYDRATES FOR HYPOGLYCEMIA PO PRN (02:14)
[2020-05-17] MEDS ORDERED: GLUCAGON FOR INJ 1 MG VIAL SQ PRN (02:14)
[2020-05-17] MEDS ORDERED: GLUCOSE 10 TABS/TUBE PO PRN (02:14)
[2020-05-17] MEDS ORDERED: DEXTROSE 50% 50 ML SYRINGE IV PRN (02:14)
[2020-05-17] MEDS: SODIUM CHLORIDE 0.9% 1000ML 1,000 ML IV SCH ×3 (02:54→19:41)
[2020-05-17] MEDS ORDERED: AZTREONAM 2,000 MG in DEXTROSE 5% 100 ML IV SCH (03:00)
[2020-05-17 07:33] LABS: Basophils # (auto) 0.01 K/uL (0-0.2); Basophils % (auto) 0.1 %; Eosinophils # (auto) 0.01 K/uL (0-0.5); Eosinophils % (auto) 0.1 %; Hematocrit (blood only) 35.9 % (37-47); Hemoglobin 11.1 g/dL (12.0-16.0); Immature Granulocytes # (auto) 0.03 K/uL (0.00-0.02); Immature Granulocytes % (auto) 0.2 %; Lymphocytes # (auto) 0.87 K/uL (1.2-3.4); Lymphocytes % (auto) 4.9 %; Mean Corpuscular Hemoglobin 27.2 pg (25-34); Mean Corpuscular Hgb Conc 30.9 g/dL (32-36); Mean Platelet Volume 10.3 fL (7.4-10.4); Monocytes # (auto) 1.35 K/uL (0.11-0.59); Monocytes % (auto) 7.6 %; Neutrophils # (auto) 15.53 K/uL (1.4-6.5); Neutrophils % (auto) 87.1 %; Platelet Count 234 K/uL (130-400); RDW Coefficient of Variation 24.2 % (11.5-14.5); RDW Standard Deviation 76.5 fL (36.4-46.3); Red Blood Count 4.08 M/uL (4.2-5.4)
[2020-05-17 07:55] LABS: Anisocytosis Present
[2020-05-17] MEDS: INSULIN ASPART 100 UNITS/ML 3 ML PEN SC SCH ×4 (07:55→21:48)
--- NOTE | 2020-05-17 08:00 | Electrocardiogram Report ---
Test Reason : Blood Pressure : / mmHG Vent. Rate : 132 BPM Atrial Rate : 132 BPM P-R Int : 140 ms QRS Dur : 084 ms QT Int : 304 ms P-R-T Axes : 085 058 060 degrees QTc Int : 450 ms Poor data quality, interpretation may be adversely affected Sinus tachycardia Low voltage QRS Diffuse Minor Nonspecific ST and T wave abnormality Abnormal ECG When compared with ECG of 27-APR-2020 10:07, HR has increased by [address] and T wave abnormality now present Confirmed by Nitish Kenyon ([id number]) on 05/17/2020 8:00:06 AM Referred By: Devante Carson Confirmed By:Nitish Kenyon
[2020-05-17 08:04] LABS: Albumin Level 2.3 gm/dl (3.4-5.0); Calcium 8.7 mg/dl (8.5-10.1); Creatinine Clr Calc Pharmacy 34.4 ml/min; Est GFR (African American) 26.2; Est GFR (Non-African American) 22.6; Potassium 3.9 mmol/L (3.5-5.1)
--- NOTE | 2020-05-17 08:06 | Urology Consultation ---
Date of Consultation May 17, 2020 Assessment & Plan (1) Pyelonephritis: (2) Sepsis: Suspected sepsislikely urinary source She has bilateral ureteral stents in excellent positionboth were placed recently I do not see any role for replacing or exchanging the stents at this time Given the lack of persistent obstruction with the stents in place, simple supportive care with IV antibiotics and hydration would be most appropriate We will follow from a distance History of Present Illness Attending Physician: Raymond Harris MD History of Present Illness 65-year-old female who was recently admitted to the hospital with obstruction, UTI and hematuria She had bilateral ureteral stents placed and was ultimately discharged 1 week after stent placement She was readmitted last night with signs and symptoms concerning for sepsis CT shows stents in appropriate position with minimal hydronephrosis She has an elevated white count, she is quite tachycardic, normotensive, afebrile at the moment but was febrile to 40 C on arrival She has a Fallon catheter in place Unfortunately during my exam she had minimal response to my questions, she does have her eyes open and is acknowledging my presence but not verbally communicating with me Allergies Allergy/AdvReac Type Severity Reaction Status Date / Time Penicillins Allergy Unknown . Verified 05/17/20 00:11 pregabalin Allergy Unknown . Verified 05/17/20 00:11 tramadol Allergy Unknown . Verified 05/17/20 00:11 cefazolin [From Ancef] Allergy Unknown Verified 05/17/20 00:11 ertapenem AdvReac Intermediate Confusion,H Verified 05/17/20 00:11 allucinatio ns Home Medications Home Medications Medication Instructions Recorded Confirmed Type acetaminophen [Tylenol] 325 mg PO Q4H PRN 05/23/18 05/17/20 History aspirin 81 mg PO QAM 05/23/18 05/16/20 History baclofen 10 mg PO TID 05/23/18 05/17/20 History buspirone 10 mg PO BID 05/23/18 05/17/20 History dicyclomine 10 mg PO Q6H PRN 05/23/18 05/17/20 History fentanyl 1 patch TRANSDERMAL Q72H 05/23/18 05/16/20 History meloxicam 15 mg PO QAM 05/23/18 05/16/20 History sennosides-docusate sodium 1 tab PO HS 05/23/18 05/17/20 History [Senokot-S] simvastatin 20 mg PO HS 05/23/18 05/17/20 History D-Mannose 500mg Capsule 1,000 mg PO BID 09/25/19 05/17/20 History cholecalciferol (vitamin D3) 5,000 unit PO QAM 09/25/19 05/17/20 History [Vitamin D3] vitamin B complex 1 tab PO QAM 09/25/19 05/17/20 History Jardiance 25 mg PO QAM 04/27/20 05/16/20 History Tradjenta 5 mg PO QAM 04/27/20 05/17/20 History aripiprazole 5 mg PO QAM 04/27/20 05/16/20 History mineral oil-isopropyl myristat 1 applic TOPICAL BID 04/27/20 05/17/20 History ferrous gluconate 324 mg PO QAM #30 tab 05/12/20 05/16/20 Rx escitalopram oxalate 10 mg PO QAM 05/16/20 05/16/20 History oxybutynin chloride 10 mg PO HS 05/16/20 05/16/20 History Patient History Medical History Bladder spasms Bone infection Chronic pain Dysuria H/O: CVA (cerebrovascular accident) Hx: UTI (urinary tract infection) Incontinence Left thigh pain Lesion of bladder Leukocytosis Morbid obesity Osteomyelitis UTI (urinary tract infection) Surgical History History of cataract surgery S/P cholecystectomy Family History Mother , age 79 of esophageal cancer Hypertension Father , in mid 60s of an [place] Myocardial infarction Social History Smoking Status: Former smoker Tobacco Type: Cigarettes Age Quit Using Tobacco: 48; Second Hand Exposure: No; Hx Alcohol Use: No Hx Substance Use: No Preferred Language: Syriac Communication Ability: Impaired Visual Impairment: No Limitations Database Marketing Analyst Required: No Beliefs That Will Affect Care: None marital status: Current Living Situation: Detention Current Living Situation Comment: [facility] current occupational status: retired Other Information That Helps Us Care for You: No Feels Safe at Home: Yes Safety Concerns: Feels Safe At This Time Assistive Devices: None Review of Systems Review of Systems: All systems reviewed & are unremarkable except as noted in HPI & below and Unobtainable due to mental health condition Physical Exam Constitutional: + obese Opens her eyes and responds to my stimuli, however she is not verbally communicating with me Appears somewhat uncomfortable Neck: neck nontender Respiratory: normal respiratory effort (No supplemental oxygen); no respiratory distress and does not use accessory muscles Cardiovascular: Rate/Rhythm: + tachycardic Vessels: radial pulses present Extremities: no edema Gastrointestinal (Abdomen): Inspection/Auscultation: abdomen normal to inspection Percussion/Palpation: abdomen soft; abdomen nontender (No reaction to palpation of the abdomen or costovertebral angles) and no guarding Musculoskeletal: Head/Neck/Chest: normocephalic and head atraumatic Extremities: extremities normal to inspection Skin: no rashes and no lesions Trauma: no evidence of skin trauma Neurologic: awake; not obtunded Speech / Cognition: normal speech Motor/Sensory: no tremor Psychiatric: Orientation: alert and oriented x 3 Genitourinary: Urine within the Fallon catheter drainage system is relatively clear Lymphatic: no lymphadenopathy Results & Data ([facility]) Vital Signs (Past 12 Hours) Vital Signs Temp Pulse Pulse Resp BP BP Pulse Ox 05/17/20 02:15 37.2 C 102 H 20 109/64 96 05/17/20 01:48 EST 106 H 30 H 117/65 96 05/17/20 01:01 EST 96 05/17/20 01:56 EDT 97 H 30 H 117/65 93 05/17/20 01:40 EDT 94 05/17/20 01:25 EDT 39.0 C H 113 H 34 H 106/71 96 05/17/20 00:44 94 05/17/20 00:22 120 H 34 H 126/80 94 05/17/20 00:01 93 05/17/20 00:00 93 05/16/20 23:41 40.7 C H 130 H 34 H 134/82 93 PG Care Time/CCT Total # of Minutes Spent Total Time Spent with Patient: Total time spent is greater than 50% in coordina tion of care (as documented) at patient's floor/unit and/or counseling patient: Coding Level of Care Code 22783 Inpt Consult Level 4 Diagnoses Pyelonephritis N12 Sepsis A41.9; R65.20; G93.40 Sepsis acute organ dysfunction status: with acute organ dysfunction Sepsis type: sepsis due to unspecified organism Severe sepsis acute organ dysfunction type: encephalopathy Severe sepsis shock status: without septic shock (1) Sepsis Sepsis acute organ dysfunction status: with acute organ dysfunction Sepsis type: sepsis due to unspecified organism Severe sepsis acute organ dysfunction type: encephalopathy Severe sepsis shock status: without septic shock Qualified Code(s): A41.9 - Sepsis, unspecified organism; R65.20 - Severe sepsis without septic shock; G93.40 - Encephalopathy, unspecified
[2020-05-17 08:07] LABS: Albumin Globulin Ratio 0.4 (0.9-2); Bilirubin,Total 0.5 mg/dl (0.2-1); Globulin 5.7 gm/dl (2.5-4.0)
--- NOTE | 2020-05-17 08:28 | CT Scan Report ---
CT head/brain wo con CLINICAL HISTORY: 65 years-old Female with ams, sepsis. Acutely altered mental status with sepsis TECHNIQUE: Multiple axial CT images of the head were obtained without contrast. A dose lowering tech nique was utilized adhering to the principles of ALARA. CT DOSE: 1382.10 mGy.cm COMPARISON: Head CT 05/05/2020 FINDINGS: No acute intracranial hemorrhage, midline shift, intracranial mass, hydrocephalus, territorial ischem ia or abnormal extra-axial collection. Mild patchy white matter hypodensities suggest chronic microva scular ischemic disease. Study is mildly motion degraded. The calvarium is intact. Hyperostosis frontalis internum. Mastoid air cells are clear. Mild mucosal t hickening of the ethmoid sinuses. Rightward bowing and spurring of the nasal septum. IMPRESSION: No acute intracranial abnormality. ACT 112: Negative or not required by law. The above report was generated using voice recognition software. It may contain grammatical, syntax o r spelling errors. Electronically signed by: Ben Vo M.D. 05/17/2020 8:26 AM
--- NOTE | 2020-05-17 08:44 | XRay Report ---
XR chest 1V portable HISTORY: 65 years-old Female SEPSIS acute sepsis COMPARISON: Chest radiograph 05/03/2020, CT abdomen and pelvis 11 TECHNIQUE: Semierect portable AP view of the chest FINDINGS: Cardiac silhouette is mildly enlarged. The patient is bent towards the right. No pneumothorax, pleura l effusion, airspace consolidation or overt pulmonary edema. Bones appear grossly intact. Mild right hemidiaphragmatic elevation. Chronic changes of the left shoulder with absent left proximal humerus. IMPRESSION: No acute process. ACT 112: Negative or not required by law. The above report was generated using voice recognition software. It may contain grammatical, syntax o r spelling errors. Electronically signed by: Ben Vo M.D. 05/17/2020 8:42 AM
[2020-05-17] MEDS: INSULIN GLARGINE SOLOSTAR 100 UNITS/ML 3 ML PEN SC SCH ×2 (08:50→20:39)
--- NOTE | 2020-05-17 09:12 | CT Scan Report ---
ABDOMEN AND PELVIS CT WITHOUT CONTRAST CT DOSE: 2192.58 mGy.cm HISTORY: Acute sepsis with urinary tract infection sepsis, uti TECHNIQUE: Multiaxial CT images of the abdomen and pelvis were performed without contrast. A dose lo wering technique was utilized adhering to the principles of ALARA. COMPARISON STUDY: CT abdomen and pelvis 04/27/2020. FINDINGS: Limited exam secondary to body habitus, Beam hardening artifact and lack of IV contrast. Mi ld subsegmental bibasilar atelectasis. There is no pneumatosis or pneumoperitoneum. Coronary artery c alcifications. The spleen, and pancreas are unremarkable. Cholecystectomy. Mild nodular thickening of the bilateral adrenal glands is unchanged. Unchanged calcifications involving the posterior right he patic lobe. Bilateral ureteral stents appear to be in satisfactory positioning. There is resolution of the previo usly described bilateral hydronephrosis. Progressively worsened left greater than right perinephric s tranding. No renal or ureteral calculi identified. No drainable fluid collection. Decompressed urinar y bladder with wall thickening and perivesicular stranding with Fallon catheter. Unremarkable uterus a nd adnexa. Calcified plaque of the abdominal aorta without aneurysm. No adenopathy. Is no bowel obstruction. Mild rectal wall thickening is likely secondary to partial distention. Mild colonic diverticulosis. The appendix is not diagnostically visualized. No secondary signs of acute ap pendicitis. Degenerative changes of the pelvis and spine. Severe degeneration with chronic remodeling changes of the bilateral femoral acetabular joints with chronic femoral head neck deformities. Grade 1 anterolisthesis L4 on L5, likely secondary to long-standing facet arthrosis. Remote inferior endpl ate Schmorl's node at T12. Partial degenerative bony fusion involves multiple thoracic levels. IMPRESSION: 1. Satisfactory positioning of the bilateral ureteral stents with resolution of previously noted hydr onephrosis. There is however mildly progressed bilateral left greater than right perinephric with per ivesicular stranding. Correlate with urinalysis. 2. No renal or ureteral calculi. 3. No bowel obstruction or bowel wall thickening. 4. Mild colonic diverticulosis without acute diverticulitis. 5. Cholecystectomy. ACT 112: Negative or not required by law. The above report was generated using voice recognition software. It may contain grammatical, syntax o r spelling errors. Electronically signed by: Ben Vo M.D. 05/17/2020 9:11 AM
--- NOTE | 2020-05-17 09:33 | Hospitalist Progress Note ---
Date of Service May 17, 2020 Assessment & Plan (1) Pyelonephritis: evident on CT abdomen/pelvis ureteral stents in good position per urology continue engel cover with Daptomycin for h/o MRSA, Meropenem for h/o ESBL, E coli, Klebsiella of note, she had severe reaction to Ertapenem, should not have response to Meropenem but monitor closely (2) Sepsis with metabolic encephalopathy: (3) Renal insufficiency: Admission and Anticipated Discharge Date Admission Date: May 17, 2020 Subjective this is just a bridge note, patient admitted after midnight patient with fever and tachycardia, moaning about her abdomen hurting, not eating or drinking much all of history from her daughter at the bedside on her very recent admission she was admitted for UTI and treated with Ertapenem which caused severe neurotoxicity, hallucinations, encephalopathy now clearly with UTI and sepsis, need to cover for ESBL, E coli, Klebsiella, MRSA discussed with pharmacy, will try Meropenem and Daptomycin Meropenem, although a carbopenem, does not have the same adverse effect profile, specifically there is no warning about neurotoxicity or hallucinations her daughter agrees to try it since she needs coverage appreciate urology consultation Review of Systems Review of Systems: Unobtainable due to cognitive status Physical Exam Constitutional: well developed, + acute distress, + ill appearing and + morbidly obese Neck: trachea midline and + thick neck; neck nontender Respiratory: + labored breathing and + tachypneic Auscultation: lungs clear to auscultation bilaterally Cardiovascular: Rate/Rhythm: regular rhythm and + tachycardic Heart Sounds: normal S1 and normal S2; no murmur Extremities: normal capillary refill and + edema Gastrointestinal (Abdomen): normal bowel sounds, soft, nontender, no hepatosplenomegaly Musculoskeletal: no cyanosis or clubbing, extremities motor strength 5/5 Results & Data Results & Data ([facility]) Vital Signs (Past 12 Hours) Vital Signs Temp Pulse Pulse Pulse Resp BP BP 05/17/20 08:00 36.7 C 125 H 22 137/83 05/17/20 02:15 37.2 C 102 H 20 109/64 05/17/20 01:48 EST 106 H 30 H 117/65 05/17/20 01:01 EST 05/17/20 01:56 EDT 97 H 30 H 117/65 05/17/20 01:40 EDT 05/17/20 01:25 EDT 39.0 C H 113 H 34 H 106/71 05/17/20 00:44 05/17/20 00:22 120 H 34 H 126/80 05/17/20 00:01 05/17/20 00:00 05/16/20 23:41 40.7 C H 130 H 34 H 134/82 Pulse Ox 05/17/20 08:00 94 05/17/20 02:15 96 05/17/20 01:48 EST 96 05/17/20 01:01 EST 96 05/17/20 01:56 EDT 93 05/17/20 01:40 EDT 94 05/17/20 01:25 EDT 96 05/17/20 00:44 94 05/17/20 00:22 94 05/17/20 00:01 93 05/17/20 00:00 93 05/16/20 23:41 93 Laboratory Results Laboratory Results - last 24 hr 05/16/20 05/17/20 05/17/20 23:59 00:09 00:09 WBC RBC Hgb Hct MCV MCH MCHC RDW Std Deviation RDW Coeff of Katina Plt Count MPV Immature Gran % (Auto) Neut % (Auto) Lymph % (Auto) [place] % (Auto) Eos % (Auto) Baso % (Auto) Neut # (Auto) Lymph # (Auto) [place] # (Auto) Eos # (Auto) Baso # (Auto) Immature Gran # (Auto) Polychromasia 1+ Anisocytosis PT INR APTT PTT Ratio Sodium 141 Potassium 4.0 Chloride 110 H Carbon Dioxide 24 Anion Gap 7.0 BUN 27 H Creatinine 2.20 H Est Cr Clr Drug Dosing 35.6 Est GFR ( Amer) 26.8 Est GFR (Non-Af Amer) 23.1 BUN/Creatinine Ratio 12.2 Glucose 220 H POC Glucose Lactate Calcium 8.8 Phosphorus 1.9 L Magnesium 2.2 Total Bilirubin 0.6 Direct Bilirubin 0.2 AST 32 ALT 30 Alkaline Phosphatase 107 Troponin I < 0.015 Total Protein 8.5 H Albumin 2.5 L Globulin 6.0 H Albumin/Globulin Ratio 0.4 L Procalcitonin Urine Color Red Urine Appearance Turbid A Urine pH >= 9.0 H Ur Specific [place] 1.021 Urine Protein 2+ H Urine Glucose (UA) 3+ H Urine Ketones Negative Urine Blood 3+ H Urine Nitrite Negative Urine Bilirubin Negative Urine Urobilinogen Negative Ur Leukocyte Esterase 3+ H Urine WBC (Auto) >30 H Urine RBC (Auto) >30 H U Hyaline Cast (Auto) 0 U Epithel Cells (Auto) >30 H Urine Bacteria (Auto) 3+ H COVID-19 Eval Order COVID-19 PCR 05/17/20 05/17/20 05/17/20 00:09 00:09 00:22 WBC RBC Hgb Hct MCV MCH MCHC RDW Std Deviation RDW Coeff of Katina Plt Count MPV Immature Gran % (Auto) Neut % (Auto) Lymph % (Auto) [place] % (Auto) Eos % (Auto) Baso % (Auto) Neut # (Auto) Lymph # (Auto) [place] # (Auto) Eos # (Auto) Baso # (Auto) Immature Gran # (Auto) Polychromasia Anisocytosis PT 12.8 H INR 1.2 H APTT 21.9 PTT Ratio 0.8 Sodium Potassium Chloride Carbon Dioxide Anion Gap BUN Creatinine Est Cr Clr Drug Dosing Est GFR ( Amer) Est GFR (Non-Af Amer) BUN/Creatinine Ratio Glucose POC Glucose Lactate 1.6 Calcium Phosphorus Magnesium Total Bilirubin Direct Bilirubin AST ALT Alkaline Phosphatase Troponin I Total Protein Albumin Globulin Albumin/Globulin Ratio Procalcitonin 5.12 H Urine Color Urine Appearance Urine pH Ur Specific [place] Urine Protein Urine Glucose (UA) Urine Ketones Urine Blood Urine Nitrite Urine Bilirubin Urine Urobilinogen Ur Leukocyte Esterase Urine WBC (Auto) Urine RBC (Auto) U Hyaline Cast (Auto) U Epithel Cells (Auto) Urine Bacteria (Auto) COVID-19 Eval Order COVID-19 PCR 05/17/20 05/17/20 05/17/20 00:23 00:23 06:36 WBC 17.80 H RBC 4.08 L Hgb 11.1 L Hct 35.9 L MCV 88.0 MCH 27.2 MCHC 30.9 L RDW Std Deviation 76.5 H RDW Coeff of Katina 24.2 H Plt Count 234 MPV 10.3 Immature Gran % (Auto) 0.2 Neut % (Auto) 87.1 Lymph % (Auto) 4.9 [place] % (Auto) 7.6 Eos % (Auto) 0.1 Baso % (Auto) 0.1 Neut # (Auto) 15.53 H Lymph # (Auto) 0.87 L [place] # (Auto) 1.35 H Eos # (Auto) 0.01 Baso # (Auto) 0.01 Immature Gran # (Auto) 0.03 H Polychromasia Anisocytosis Present PT INR APTT PTT Ratio Sodium Potassium Chloride Carbon Dioxide Anion Gap BUN Creatinine Est Cr Clr Drug Dosing Est GFR ( Amer) Est GFR (Non-Af Amer) BUN/Creatinine Ratio Glucose POC Glucose Lactate Calcium Phosphorus Magnesium Total Bilirubin Direct Bilirubin AST ALT Alkaline Phosphatase Troponin I Total Protein Albumin Globulin Albumin/Globulin Ratio Procalcitonin Urine Color Urine Appearance Urine pH Ur Specific [place] Urine Protein Urine Glucose (UA) Urine Ketones Urine Blood Urine Nitrite Urine Bilirubin Urine Urobilinogen Ur Leukocyte Esterase Urine WBC (Auto) Urine RBC (Auto) U Hyaline Cast (Auto) U Epithel Cells (Auto) Urine Bacteria (Auto) COVID-19 Eval Order Covid19 Done at [facility] COVID-19 PCR NEGATIVE 05/17/20 05/17/20 05/17/20 06:36 08:33 11:56 WBC RBC Hgb Hct MCV MCH MCHC RDW Std Deviation RDW Coeff of Katina Plt Count MPV Immature Gran % (Auto) Neut % (Auto) Lymph % (Auto) [place] % (Auto) Eos % (Auto) Baso % (Auto) Neut # (Auto) Lymph # (Auto) [place] # (Auto) Eos # (Auto) Baso # (Auto) Immature Gran # (Auto) Polychromasia Anisocytosis PT INR APTT PTT Ratio Sodium 146 H Potassium 3.9 Chloride 113 H Carbon Dioxide 25 Anion Gap 8.0 BUN 29 H Creatinine 2.24 H Est Cr Clr Drug Dosing 34.4 Est GFR ( Amer) 26.2 Est GFR (Non-Af Amer) 22.6 BUN/Creatinine Ratio 13.0 Glucose 177 H POC Glucose 192 H 205 H Lactate Calcium 8.7 Phosphorus Magnesium Total Bilirubin 0.5 Direct Bilirubin AST 30 ALT 27 Alkaline Phosphatase 93 Troponin I Total Protein 8.0 Albumin 2.3 L Globulin 5.7 H Albumin/Globulin Ratio 0.4 L Procalcitonin Urine Color Urine Appearance Urine pH Ur Specific [place] Urine Protein Urine Glucose (UA) Urine Ketones Urine Blood Urine Nitrite Urine Bilirubin Urine Urobilinogen Ur Leukocyte Esterase Urine WBC (Auto) Urine RBC (Auto) U Hyaline Cast (Auto) U Epithel Cells (Auto) Urine Bacteria (Auto) COVID-19 Eval Order COVID-19 PCR 05/17/20 05/17/20 17:44 20:30 WBC RBC Hgb Hct MCV MCH MCHC RDW Std Deviation RDW Coeff of Katina Plt Count MPV Immature Gran % (Auto) Neut % (Auto) Lymph % (Auto) [place] % (Auto) Eos % (Auto) Baso % (Auto) Neut # (Auto) Lymph # (Auto) [place] # (Auto) Eos # (Auto) Baso # (Auto) Immature Gran # (Auto) Polychromasia Anisocytosis PT INR APTT PTT Ratio Sodium Potassium Chloride Carbon Dioxide Anion Gap BUN Creatinine Est Cr Clr Drug Dosing Est GFR ( Amer) Est GFR (Non-Af Amer) BUN/Creatinine Ratio Glucose POC Glucose 123 H 130 H Lactate Calcium Phosphorus Magnesium Total Bilirubin Direct Bilirubin AST ALT Alkaline Phosphatase Troponin I Total Protein Albumin Globulin Albumin/Globulin Ratio Procalcitonin Urine Color Urine Appearance Urine pH Ur Specific [place] Urine Protein Urine Glucose (UA) Urine Ketones Urine Blood Urine Nitrite Urine Bilirubin Urine Urobilinogen Ur Leukocyte Esterase Urine WBC (Auto) Urine RBC (Auto) U Hyaline Cast (Auto) U Epithel Cells (Auto) Urine Bacteria (Auto) COVID-19 Eval Order COVID-19 PCR Medications Administered Current Inpatient Medications Dextrose (Dextrose 50% 50 Ml Syringe) 25 - 50 ml IV UD PRN; Protocol PRN Reason: Hypoglycemia Protocol Stop: 06/16/20 02:13 Glucagon (Glucagon For Inj 1 Mg Vial) 1 mg SQ UD PRN; Protocol PRN Reason: Hypoglycemia Protocol Stop: 06/16/20 02:13 Glucose (Glucose 10 Tabs/Tube) 4 - 8 tabs PO UD PRN; Protocol PRN Reason: Hypoglycemia Protocol Stop: 06/16/20 02:13 Glucose (Glucose 40% Gel 15 Gm Tube) 15 - 30 gm PO UD PRN; Protocol PRN Reason: Hypoglycemia Protocol Stop: 06/16/20 02:13 Sodium Chloride (Nss 1000ml) 1,000 mls @ 125 mls/hr IV .Q8H ELAN Stop: 06/16/20 02:13 Last Admin: 05/17/20 19:41 Dose: 125 mls/hr Documented by: Acetaminophen (Ofirmev) 1,000 mg in 100 mls @ 400 mls/hr IV Q8H PRN PRN Reason: fever Stop: 05/20/20 02:13 Last Infusion: 05/17/20 21:47 Dose: Infused Documented by: Daptomycin 350 mg/ Syringe 7 mls @ 3.5 mls/min IV Q24H [facility]; Protocol Stop: 05/28/20 00:00 Meropenem 500 mg/ Syringe 10 mls @ 2 mls/min IV Q8H [facility]; Protocol Stop: 05/27/20 12:59 Last Admin: 05/17/20 20:39 Dose: 2 mls/min Documented by: Insulin Aspart (Insulin Aspart 100 Units/Ml 3 Ml Pen) 0 units SC ACHS ELAN Stop: 06/16/20 07:29 Last Admin: 05/17/20 21:48 Dose: Not Given Documented by: Insulin Glargine (Insulin Glargine Solostar 100 Units/Ml 3 Ml Pen) 15 units SC BID [facility] Stop: 06/16/20 08:59 Last Admin: 05/17/20 20:39 Dose: 15 units Documented by: Miscellaneous (Carbohydrates For Hypoglycemia ) 15 - 30 gm PO UD PRN PRN Reason: Hypoglycemia Protocol Stop: 06/16/20 02:13 Miscellaneous Information (Daptomycin Consult Active) 1 ea N/A UD PRN PRN Reason: Consult Stop: 06/16/20 12:38 Miscellaneous Information (Meropenem Consult Acitve) 1 ea N/A UD PRN PRN Reason: Consult Stop: 06/16/20 12:47 Morphine Sulfate (Morphine Sulfate 2 Mg/Ml Carp) 2 mg IV Q4H PRN PRN Reason: Pain Stop: 05/31/20 15:06 Last Admin: 05/17/20 15:23 Dose: 2 mg Documented by: Morphine Sulfate (Morphine Sulfate 4 Mg/Ml 1 Ml Carp\Vial) 4 mg IV Q4H PRN PRN Reason: Severe Pain Stop: 05/31/20 15:06 Last Admin: 05/17/20 19:40 Dose: 4 mg Documented by: PG Care Time/CCT Total # of Minutes Spent Total Time Spent with Patient: Total time spent is greater than 50% in coordination of care (as documented) at patient's floor/unit and/or counseling patient: Coding Level of Care Code None Diagnoses Pyelonephritis N12 Sepsis with metabolic encephalopathy A41.9; R65.20; G93.41 Renal insufficiency N28.9
[2020-05-17] MEDS ORDERED: levoFLOXacin/D5W 750 MG/150 ML BAG IV SCH (10:00)
[2020-05-17] MEDS: ACETAMINOPHEN 1,000 MG/100 ML VIAL IV PRN ×2 (11:53→20:38)
[2020-05-17] MEDS ORDERED: MEROPENEM CONSULT ACITVE PRN (12:48)
[2020-05-17] MEDS: MEROPENEM 500 MG in SYRINGE 0 ML IV SCH ×2 (13:45→20:39)
[2020-05-17] MEDS ORDERED: MoRPHine SULFATE 2 MG/ML CARP IV PRN (15:07)
[2020-05-17] MEDS: MoRPHine SULFATE 4 MG/ML 1 ML CARP\\VIAL IV PRN (19:40)
--- NOTE | 2020-05-17 23:47 | Billing Data ---
Date of Service May 17, 2020 Coding Level of Care Code 31816 Initial Inpt Care Lvl 3
[2020-05-18] MEDS ORDERED: DAPTOmycin 500 MG in SYRINGE 0 ML IV SCH
[2020-05-18] MEDS ORDERED: DAPTOmycin 350 MG in SYRINGE 0 ML IV SCH
[2020-05-18] MEDS: MoRPHine SULFATE 4 MG/ML 1 ML CARP\\VIAL IV PRN (03:28)
[2020-05-18] MEDS: SODIUM CHLORIDE 0.9% 1000ML 1,000 ML IV SCH ×2 (04:57→13:10)
[2020-05-18] MEDS: MEROPENEM 500 MG in SYRINGE 0 ML IV SCH ×3 (05:28→22:05)
[2020-05-18] MEDS: INSULIN ASPART 100 UNITS/ML 3 ML PEN SC SCH ×4 (09:42→21:25)
[2020-05-18 10:58] LABS: Basophils # (auto) 0.02 K/uL (0-0.2); Basophils % (auto) 0.2 %; Hematocrit (blood only) 30.7 % (37-47); Hemoglobin 9.1 g/dL (12.0-16.0); Immature Granulocytes # (auto) 0.02 K/uL (0.00-0.02); Immature Granulocytes % (auto) 0.2 %; Lymphocytes # (auto) 1.48 K/uL (1.2-3.4); Lymphocytes % (auto) 11.8 %; Mean Corpuscular Hemoglobin 26.6 pg (25-34); Mean Corpuscular Volume 89.8 fL (80-100); Mean Platelet Volume 9.8 fL (7.4-10.4); Monocytes # (auto) 0.71 K/uL (0.11-0.59); Monocytes % (auto) 5.6 %; Neutrophils # (auto) 10.36 K/uL (1.4-6.5); Neutrophils % (auto) 82.2 %; Platelet Count 187 K/uL (130-400); RDW Coefficient of Variation 24.2 % (11.5-14.5); RDW Standard Deviation 78.4 fL (36.4-46.3); Red Blood Count 3.42 M/uL (4.2-5.4); White Blood Count 12.59 K/uL (4.8-10.8)
[2020-05-18 10:59] LABS: Mean Corpuscular Hgb Conc 29.6 g/dL (32-36)
[2020-05-18 11:17] LABS: Albumin Level 1.8 gm/dl (3.4-5.0); BUN Creatinine Ratio 15.8 (10-20); Calcium 7.6 mg/dl (8.5-10.1); Creatinine Clr Calc Pharmacy 30.8 ml/min; Est GFR (African American) 22.9; Est GFR (Non-African American) 19.8; Potassium 3.8 mmol/L (3.5-5.1)
[2020-05-18 11:20] LABS: Albumin Globulin Ratio 0.4 (0.9-2); Bilirubin,Total 0.4 mg/dl (0.2-1); Globulin 4.9 gm/dl (2.5-4.0); Total Protein 6.7 gm/dl (6.4-8.2)
[2020-05-18 11:30] LABS: Dohle Bodies 1+; Polychromasia 1+; Rouleaux 1+; Toxic Granulation 1+; Toxic Vacuolation 1+
[2020-05-18] MEDS: INSULIN GLARGINE SOLOSTAR 100 UNITS/ML 3 ML PEN SC SCH ×2 (11:35→21:26)
--- NOTE | 2020-05-18 13:49 | Hospitalist Progress Note ---
Date of Service May 18, 2020 Assessment & Plan (1) Septicemia: Dalia garcia is a 65-year-old female with a past medical history of ESBL/MRSA urinary tract infections with recent bilateral ureteral stent placement and ARF/SOLEDAD who presents as a readmission after return of fevers to 105 F and toxic appearance suspected due to recurrent UTI with concern for new left pyelonephritis Covid-19 negative on admission Sepsis 2/2 pyelonephritis, complicated, with ureteral stents in place CT abdomen/pelvis on admission with: Interval placement of bilateral ureteral stents, appropriately positioned. Decreased bilateral hydroureteronephrosis in comparison to prior exam. Increased left perinephric stranding in the interval, pyelonephritis not excluded.Urinary bladder decompressed from Fallon catheter. Haziness of the bladder wall may reflect cystitis. Seen by urology and recommended continued IV antibiotics and IV fluids, no need for stent exchange Febrile on admission which is now improving Lactate negative, procalcitonin elevated at 5 and increased further to 6 today Leukocytosis to 18.75, neutrophilic predominance on admission which is now improved down to 12 ABG 7.4 //24 Creatinine 2.2, BUN 27 on admission and creatinine now worsening likely due to ATN from sepsis Blood cultures now growing 1/2 with gram-negative bacilli Urine culture with Proteus mirabilis resistant to fluoroquinolones, ampicillin, and Bactrim -Continue meropenem for now, but can discontinue daptomycin -Exchange Fallon catheter today -Repeat blood cultures to ensure sterility Tylenol as needed for fever -Will discuss with urology about whether Fallon catheter needs to remain in place after discharge this time given that she likely has a Fallon catheter associated UTI -Continue IV fluids but convert to D5W for hypernatremia Follow CBC, CMP, and procalcitonin in the morning -If for some reason continues to have fevers despite adequate treatment with antibiotics, consider repeat Covid-19 testing as she comes from a shelter with a significant outbreak (2) Acute metabolic encephalopathy: Secondary to septicemia as above Ongoing, but slightly improved from yesterday as per daughter Expect resolution as infection improves and is treated Continue supportive care Continue to encourage p.o. intake (3) UTI (urinary tract infection): As above (4) SOLEDAD (acute kidney injury): Acute kidney failure on CKD stage III Creatinine continues to rise today to 2.5, likely ATN from sepsis, however was also recommended to discontinue Jardiance upon last admission but this got continued upon discharge Would permanently discontinue the Jardiance Continue IV fluids but change to D5W Follow serial BMP Other electrolytes are acceptable Making urine No obstruction on CT abdomen/pelvis (5) Hypernatremia: Sodium much worse today at 152 after receiving 3 L normal saline upon admission Switch to D5W as above at 100 mL/h Follow BMP serially Encourage p.o. intake (6) Anemia: Hemoglobin dropped to 9.1 from 11 on admission, likely hemodilutional Iron studies last admission showed mildly low serum iron but most likely anemia of chronic disease and fecal occult was negative Follow CBC Continue ferrous sulfate once mental status improved (7) Microscopic hematuria: Noted due to chronic fissures and bladder and recurrent UTIs Follow-up with urology (8) Diabetes mellitus type 2 in obese: Hemoglobin A1c 8.3% last admission Permanently discontinued Jardiance as above for renal failure Tradjenta would also need to be renally dosed Continue Lantus and watch for hyper or hypoglycemia Accu-Cheks, sliding scale insulin (9) Depression with anxiety: Depression-stable on last admission Restart home buspirone and escitalopram -Would permanently discontinue Abilify as on last admission she went without it and did much better. That admission she also was noted to have some mild tardive dyskinesia (10) Dyslipidemia: Holding simvastatin until daptomycin out of her system as they can interact (11) History of recurrent UTI (urinary tract infection): Holding d-mannose from home Follows with urology (12) CKD (chronic kidney disease) stage 3, GFR 30-59 ml/min: With acute kidney injury as above Baseline creatinine previously around 1.6-1.9 -Avoid nephrotoxins -renally dose meds when appropriate -follow BMP (13) Chronic pain: Holding home fentanyl patch while with metabolic encephalopathy IV morphine as needed if has pain or withdrawal (14) Morbid obesity: BMI 46.4 Needs weight loss (15) DVT prophylaxis: Start heparin SQ and add SCDs Disposition-continued stay on PCU Discussed care with daughter at the bedside DNR/DNI Comes from [facility] as a longtime resident. She is dependent for all needs and is a mechanical lift. No PT/OT consultations needed Admission and Anticipated Discharge Date Admission Date: May 17, 2020 Subjective Patient remains quite confused, minimally verbal except repeats "please help" over and over. Her daughter is at the bedside and does report that she will drink fluids when offered to her and seems thirsty. Patient is able to deny pain anywhere when asked, but cannot offer any other history. I asked the nurse to change out her Fallon catheter today. Telemetry with normal sinus rhythm, PACs, runs of PAT, rates in the 90s to 100s Review of Systems Review of Systems: Unobtainable due to cognitive status Physical Exam Constitutional: WD/WN, vitals as above + morbidly obese and + lethargic (But awake) ENMT: external ear and nose normal, oropharynx normal Neck: trachea midline, no thyromegaly Respiratory: normal respiratory effort, lungs clear to auscultation Cardiovascular: RRR, no murmur, no edema Chest (Breasts): Chest: normal inspection of chest Gastrointestinal (Abdomen): normal bowel sounds, soft, nontender, no hepatosplenomegaly Musculoskeletal: Extremities: extremities normal to inspection; no cyanosis and no clubbing Skin: no rashes, warm and dry Neurologic: moves all extremities, awake and + confused; no focal motor deficits Psychiatric: Orientation: oriented to person; + not oriented to place, + not oriented to time and + uncooperative Eye Contact: + fair eye contact Motor Behavior: n tremor Genitourinary: Fallon catheter in place draining cloudy purulent urine Lymphatic: no lymphedema Results & Data Results & Data ([facility]) Vital Signs (Past 12 Hours) Vital Signs Temp Pulse Resp BP Pulse Ox 05/18/20 11:38 37.8 C H 99 H 18 109/70 92 05/18/20 07:25 37.4 C 102 H 20 113/68 94 Laboratory Results 05/18/20 05/18/20 05/18/20 Range/Units 20:28 16:47 11:36 WBC (4.8-10.8) K/uL RBC (4.2-5.4) M/uL Hgb (12.0-16.0) g/dL Hct (37-47) % MCV (80-100) fL MCH (25-34) pg MCHC (32-36) g/dL RDW Std Deviation (36.4-46.3) fL RDW Coeff of Katina (11.5-14.5) % Plt Count (130-400) K/uL MPV (7.4-10.4) fL Immature Gran % (Auto) % Neut % (Auto) % Lymph % (Auto) % [place] % (Auto) % Eos % (Auto) % Baso % (Auto) % Neut # (Auto) (1.4-6.5) K/uL Lymph # (Auto) (1.2-3.4) K/uL [place] # (Auto) (0.11-0.59) K/uL Eos # (Auto) (0-0.5) K/uL Baso # (Auto) (0-0.2) K/uL Immature Gran # (Auto) (0.00-0.02) K/uL Toxic Granulation Toxic Vacuolation Dohle Bodies Polychromasia Rouleaux Sodium (136-145) mmol/L Potassium (3.5-5.1) mmol/L Chloride (98-107) mmol/L Carbon Dioxide (21-32) mmol/L Anion Gap (3-11) BUN (7-18) mg/dl Creatinine (0.6-1.2) mg/dl Est Cr Clr Drug Dosing ml/min Est GFR ( Amer) Est GFR (Non-Af Amer) BUN/Creatinine Ratio (10-20) Glucose (70-99) mg/dl POC Glucose 119 H 122 H 100 H (70-99) mg/dl Lactate (0.4-2.0) mmol/L Calcium (8.5-10.1) mg/dl Total Bilirubin (0.2-1) mg/dl AST (15-37) U/L ALT (12-78) U/L Alkaline Phosphatase (45-117) U/L Total Protein (6.4-8.2) gm/dl Albumin (3.4-5.0) gm/dl Globulin (2.5-4.0) gm/dl Albumin/Globulin Ratio (0.9-2) Procalcitonin (0-0.5) ng/ml 05/18/20 05/18/20 05/18/20 Range/Units 10:50 10:44 10:44 WBC 12.59 H (4.8-10.8) K/uL RBC 3.42 L (4.2-5.4) M/uL Hgb 9.1 L (12.0-16.0) g/dL Hct 30.7 L (37-47) % MCV 89.8 (80-100) fL MCH 26.6 (25-34) pg MCHC 29.6 L (32-36) g/dL RDW Std Deviation 78.4 H (36.4-46.3) fL RDW Coeff of Katina 24.2 H (11.5-14.5) % Plt Count 187 (130-400) K/uL MPV 9.8 (7.4-10.4) fL Immature Gran % (Auto) 0.2 % Neut % (Auto) 82.2 % Lymph % (Auto) 11.8 % [place] % (Auto) 5.6 % Eos % (Auto) 0.0 % Baso % (Auto) 0.2 % Neut # (Auto) 10.36 H (1.4-6.5) K/uL Lymph # (Auto) 1.48 (1.2-3.4) K/uL [place] # (Auto) 0.71 H (0.11-0.59) K/uL Eos # (Auto) 0.00 (0-0.5) K/uL Baso # (Auto) 0.02 (0-0.2) K/uL Immature Gran # (Auto) 0.02 (0.00-0.02) K/uL Toxic Granulation 1+ Toxic Vacuolation 1+ Dohle Bodies 1+ Polychromasia 1+ Rouleaux 1+ Sodium (136-145) mmol/L Potassium (3.5-5.1) mmol/L Chloride (98-107) mmol/L Carbon Dioxide (21-32) mmol/L Anion Gap (3-11) BUN (7-18) mg/dl Creatinine (0.6-1.2) mg/dl Est Cr Clr Drug Dosing ml/min Est GFR ( Amer) Est GFR (Non-Af Amer) BUN/Creatinine Ratio (10-20) Glucose (70-99) mg/dl POC Glucose (70-99) mg/dl Lactate 0.9 (0.4-2.0) mmol/L Calcium (8.5-10.1) mg/dl Total Bilirubin (0.2-1) mg/dl AST (15-37) U/L ALT (12-78) U/L Alkaline Phosphatase (45-117) U/L Total Protein (6.4-8.2) gm/dl Albumin (3.4-5.0) gm/dl Globulin (2.5-4.0) gm/dl Albumin/Globulin Ratio (0.9-2) Procalcitonin 6.61 H (0-0.5) ng/ml 05/18/20 05/18/20 05/17/20 Range/Units 10:44 07:28 20:30 WBC (4.8-10.8) K/uL RBC (4.2-5.4) M/uL Hgb (12.0-16.0) g/dL Hct (37-47) % MCV (80-100) fL MCH (25-34) pg MCHC (32-36) g/dL RDW Std Deviation (36.4-46.3) fL RDW Coeff of Katina (11.5-14.5) % Plt Count (130-400) K/uL MPV (7.4-10.4) fL Immature Gran % (Auto) % Neut % (Auto) % Lymph % (Auto) % [place] % (Auto) % Eos % (Auto) % Baso % (Auto) % Neut # (Auto) (1.4-6.5) K/uL Lymph # (Auto) (1.2-3.4) K/uL [place] # (Auto) (0.11-0.59) K/uL Eos # (Auto) (0-0.5) K/uL Baso # (Auto) (0-0.2) K/uL Immature Gran # (Auto) (0.00-0.02) K/uL Toxic Granulation Toxic Vacuolation Dohle Bodies Polychromasia Rouleaux Sodium 152 H (136-145) mmol/L Potassium 3.8 (3.5-5.1) mmol/L Chloride 123 H (98-107) mmol/L Carbon Dioxide 23 (21-32) mmol/L Anion Gap 6.0 (3-11) BUN 40 H (7-18) mg/dl Creatinine 2.50 H (0.6-1.2) mg/dl Est Cr Clr Drug Dosing 30.8 ml/min Est GFR ( Amer) 22.9 Est GFR (Non-Af Amer) 19.8 BUN/Creatinine Ratio 15.8 (10-20) Glucose 110 H (70-99) mg/dl POC Glucose 124 H 130 H (70-99) mg/dl Lactate (0.4-2.0) mmol/L Calcium 7.6 L (8.5-10.1) mg/dl Total Bilirubin 0.4 (0.2-1) mg/dl AST 53 H (15-37) U/L ALT 35 (12-78) U/L Alkaline Phosphatase 111 (45-117) U/L Total Protein 6.7 (6.4-8.2) gm/dl Albumin 1.8 L (3.4-5.0) gm/dl Globulin 4.9 H (2.5-4.0) gm/dl Albumin/Globulin Ratio 0.4 L (0.9-2) Procalcitonin (0-0.5) ng/ml Blood cultures 1/2 with gram-negative bacilli Urine culture with Proteus mirabilis resistant to fluoroquinolones, Bactrim, and ampicillin PG Care Time/CCT Total # of Minutes Spent Total Time Spent with Patient: Total time spent is greater than 50% in coordination of care (as documented) at patient's floor/unit and/or counseling patient: Coding Level of Care Code 55094 Subseq Hosp Care Lvl 3 Diagnoses Septicemia A41.9 Acute metabolic encephalopathy G93.41 UTI (urinary tract infection) N39.0 SOLEDAD (acute kidney injury) N17.9 Hypernatremia E87.0 Anemia D64.9 Microscopic hematuria R31.29 Diabetes mellitus type 2 in obese E11.69; E66.9 Depression with anxiety F41.8 Dyslipidemia E78.5 History of recurrent UTI (urinary tract infection) Z87.440 CKD (chronic kidney disease) stage 3, GFR 30-59 ml/min N18.30 Chronic pain G89.29 Morbid obesity E66.01 DVT prophylaxis Z29.9
[2020-05-18] MEDS: DEXTROSE 5% 1,000 ML IV SCH (14:48)
[2020-05-18 21:21] LABS: BUN Creatinine Ratio 15.9 (10-20); Calcium 8.1 mg/dl (8.5-10.1); Creatinine Clr Calc Pharmacy 32.2 ml/min; Est GFR (African American) 24.2; Est GFR (Non-African American) 20.9; Potassium 3.6 mmol/L (3.5-5.1)
[2020-05-18] MEDS: DOCUSATE SODIUM/SENNA 50/8.6MG TAB PO SCH (21:22)
[2020-05-18] MEDS: busPIRone 5 MG TAB PO SCH (21:23)
[2020-05-18] MEDS: HEPARIN SOD 5,000 UNIT/0.5 ML VIAL SQ SCH (22:00)
[2020-05-19] MEDS: DEXTROSE 5% 1,000 ML IV SCH ×3 (02:14→17:12)
[2020-05-19 06:21] LABS: Basophils # (auto) 0.02 K/uL (0-0.2); Basophils % (auto) 0.2 %; Eosinophils # (auto) 0.04 K/uL (0-0.5); Eosinophils % (auto) 0.4 %; Hematocrit (blood only) 29.1 % (37-47); Hemoglobin 8.9 g/dL (12.0-16.0); Immature Granulocytes # (auto) 0.02 K/uL (0.00-0.02); Immature Granulocytes % (auto) 0.2 %; Lymphocytes # (auto) 1.65 K/uL (1.2-3.4); Lymphocytes % (auto) 17.8 %; Mean Corpuscular Hemoglobin 27.1 pg (25-34); Mean Corpuscular Hgb Conc 30.6 g/dL (32-36); Mean Corpuscular Volume 88.4 fL (80-100); Mean Platelet Volume 9.9 fL (7.4-10.4); Monocytes # (auto) 0.84 K/uL (0.11-0.59); Monocytes % (auto) 9.1 %; Neutrophils # (auto) 6.71 K/uL (1.4-6.5); Neutrophils % (auto) 72.3 %; Platelet Count 170 K/uL (130-400); RDW Standard Deviation 76.3 fL (36.4-46.3); Red Blood Count 3.29 M/uL (4.2-5.4); White Blood Count 9.28 K/uL (4.8-10.8)
[2020-05-19] MEDS: HEPARIN SOD 5,000 UNIT/0.5 ML VIAL SQ SCH ×3 (06:21→21:10)
[2020-05-19] MEDS: MEROPENEM 500 MG in SYRINGE 0 ML IV SCH ×3 (06:21→21:08)
[2020-05-19 06:54] LABS: BUN Creatinine Ratio 16.1 (10-20); Calcium 8.1 mg/dl (8.5-10.1); Creatinine Clr Calc Pharmacy 35.3 ml/min; Est GFR (African American) 26.5; Est GFR (Non-African American) 22.8; Magnesium 2.3 mg/dl (1.8-2.4); Potassium 3.5 mmol/L (3.5-5.1)
[2020-05-19 06:59] LABS: Rouleaux 1+
[2020-05-19] MEDS: busPIRone 5 MG TAB PO SCH ×2 (07:50→21:09)
[2020-05-19] MEDS: VITAMIN B COMPLEX TAB PO SCH (07:50)
[2020-05-19] MEDS: ESCITALOPRAM OXALATE 10 MG TAB PO SCH (07:50)
[2020-05-19] MEDS: INSULIN ASPART 100 UNITS/ML 3 ML PEN SC SCH ×4 (07:51→21:10)
[2020-05-19] MEDS: INSULIN GLARGINE SOLOSTAR 100 UNITS/ML 3 ML PEN SC SCH ×2 (08:59→21:09)
--- NOTE | 2020-05-19 09:54 | Hospitalist Progress Note ---
Date of Service May 19, 2020 Assessment & Plan (1) Septicemia: Dalia garcia is a 65-year-old female with a past medical history of ESBL/MRSA urinary tract infections with recent bilateral ureteral stent placement and ARF/SOLEDAD who presents as a readmission after return of fevers to 105 F and toxic appearance suspected due to recurrent UTI with concern for new left pyelonephritis Covid-19 negative on admission Sepsis 2/2 pyelonephritis, complicated, with ureteral stents in place CT abdomen/pelvis on admission with: Interval placement of bilateral ureteral stents, appropriately positioned. Decreased bilateral hydroureteronephrosis in comparison to prior exam. Increased left perinephric stranding in the interval, pyelonephritis not excluded.Urinary bladder decompressed from Fallon catheter. Haziness of the bladder wall may reflect cystitis. Seen by urology and recommended continued IV antibiotics and IV fluids, no need for stent exchange Febrile on admission which is now resolved Lactate negative, procalcitonin elevated at 5 and increased further to 6 but now back down to 4 Leukocytosis to 18.75, neutrophilic predominance on admission which is now improved down to normal ABG 7.49/32/71/24 on admission-respiratory alkalosis secondary to sepsis Creatinine 2.2, BUN 27 on admission and creatinine then was worsening likely due to ATN from sepsis, now improving again Blood cultures now growing 1/2 with gram-negative bacilli-ID and sensitivity pending Repeat blood cultures-no growth to date Urine culture with Proteus mirabilis resistant to fluoroquinolones, ampicillin, and Bactrim -Continue meropenem for now, but can narrow down likely to ceftriaxone if blood cultures are also Proteus -Exchanged Fallon catheter here until 05/18 -Follow repeat blood cultures to ensure sterility Tylenol as needed for fever -Will discuss with urology about whether Fallon catheter needs to remain in place after discharge this time given that she likely has a Fallon catheter associated UTI -Continue IV fluids but lower rate to 80 mL/h of D5W for ongoing but improving hypernatremia Follow CBC, CMP, and procalcitonin in the morning -If for some reason continues to have fevers despite adequate treatment with antibiotics, consider repeat Covid-19 testing as she comes [facility] with a [facility] outbreak (2) Acute metabolic encephalopathy: Secondary to septicemia as above Much improved today, but still remains lethargic. However is now oriented x3 and wakes up easily and answers questions, is eating and drinking. Expect resolution as infection improves and is treated Continue supportive care Continue to encourage p.o. intake (3) UTI (urinary tract infection): As above (4) SOLEDAD (acute kidney injury): Acute kidney failure on CKD stage III Creatinine continued to rise to 2.5, likely ATN from sepsis, however was also recommended to discontinue Jardiance upon last admission but this got continued upon discharge Would permanently discontinue the Jardiance Creatinine improving today down to 2.2 with IV fluid hydration Continue IV fluids with D5W but decrease to 80 mL's per hour Follow BMP in the morning Other electrolytes are acceptable Making urine No obstruction on CT abdomen/pelvis, with ureteral stents bilateral in place (5) Hypernatremia: Sodium much worse at 152 after receiving 3 L normal saline upon admission, now improved back down to 148 with D5W Continue D5W as above at 80 mL/h Follow BMP Encourage p.o. free water intake which she is now able to do on her own (6) Anemia: Hemoglobin dropped to 8.9 from 11 on admission, likely hemodilutional Iron studies last admission showed mildly low serum iron but most likely anemia of chronic disease and fecal occult was negative Follow CBC Continue ferrous sulfate once mental status improved-we will restart today (7) Microscopic hematuria: Noted due to chronic fissures and bladder and recurrent UTIs Urine cytology negative for high-grade urothelial carcinoma cells in 05/07/2020 Follow-up with urology as an outpatient (8) Diabetes mellitus type 2 in obese: Hemoglobin A1c 8.3% last admission Permanently discontinued Jardiance as above for renal failure Tradjenta would also need to be renally dosed Continue Lantus and watch for hyper or hypoglycemia-sugars well controlled here Accu-Cheks, sliding scale insulin (9) Depression with anxiety: Depression-stable on last admission Continue home buspirone and escitalopram -Would permanently discontinue Abilify as on last admission she went without it and did much better. That admission she also was noted to have some mild tardive dyskinesia (10) Dyslipidemia: Held simvastatin until daptomycin out of her system as they can interact Okay to restart simvastatin tonight (11) History of recurrent UTI (urinary tract infection): Holding d-mannose from home Follows with urology (12) CKD (chronic kidney disease) stage 3, GFR 30-59 ml/min: With acute kidney injury as above Baseline creatinine previously around 1.6-1.9 -Avoid nephrotoxins -renally dose meds when appropriate -follow BMP (13) Chronic pain: Holding home fentanyl patch while with metabolic encephalopathy IV morphine as needed if has pain or withdrawal Currently has no pain (14) Morbid obesity: BMI 46.4 Needs weight loss (15) Wound of foot: Left foot with superficial abrasion with some serous drainage, no signs of infection Keep covered with OPTi foam Consult wound nurse Discussed with nursing care (16) DVT prophylaxis: heparin SQ and SCDs Disposition-okay to downgrade to medical status DNR/DNI Comes from [facility] as a longtime resident. She is dependent for all needs and is a mechanical lift. No PT/OT consultations needed Admission and Anticipated Discharge Date Admission Date: May 17, 2020 Subjective Mental status much improved this morning. She is sleepy and reports she is tired, but wakes up easily and is oriented x3. Reports she is thirsty. No abdominal pain or nausea. She ate yogurt for breakfast she reports. Denies chest pain or shortness of breath. Telemetry with normal sinus rhythm with rates in the 70s to 90s. Review of Systems Review of Systems: All systems reviewed & are unremarkable except as noted in HPI & below Physical Exam Constitutional: WD/WN, vitals as above + morbidly obese and + lethargic (But awake) ENMT: Ears: no hearing impairment Mouth: + oral mucosal abnormality (Severely dry mucous membranes and tongue) Neck: trachea midline, no thyromegaly Respiratory: normal respiratory effort, lungs clear to auscultation Cardiovascular: RRR, no murmur, no edema Gastrointestinal (Abdomen): normal bowel sounds, soft, nontender, no hepatosplenomegaly Musculoskeletal: Extremities: extremities normal to inspection; no cyanosis and no clubbing Skin: + wound (Left anterior foot with superficial sloughing of skin and serous drainage); no erythema Neurologic: moves all extremities and awake; no focal motor deficits (But generally weak all over) Psychiatric: A+Ox3, euthymic affect Orientation: cooperative Genitourinary: Fallon catheter in place draining dark yellow clear urine Lymphatic: no lymphedema Results & Data Results & Data ([facility]) Vital Signs (Past 12 Hours) Vital Signs Temp Pulse Pulse Resp BP Pulse Ox 05/19/20 07:39 37.5 C 82 18 112/66 95 05/19/20 02:59 37.3 C 83 17 118/70 92 05/19/20 00:00 87 05/18/20 23:22 37.4 C 90 16 118/71 94 Laboratory Results 05/19/20 05/19/20 05/19/20 Range/Units 07:40 06:08 06:08 WBC (4.8-10.8) K/uL RBC (4.2-5.4) M/uL Hgb (12.0-16.0) g/dL Hct (37-47) % MCV (80-100) fL MCH (25-34) pg MCHC (32-36) g/dL RDW Std Deviation (36.4-46.3) fL RDW Coeff of Katina (11.5-14.5) % Plt Count (130-400) K/uL MPV (7.4-10.4) fL Immature Gran % (Auto) % Neut % (Auto) % Lymph % (Auto) % Harding % (Auto) % Eos % (Auto) % Baso % (Auto) % Neut # (Auto) (1.4-6.5) K/uL Lymph # (Auto) (1.2-3.4) K/uL Harding # (Auto) (0.11-0.59) K/uL Eos # (Auto) (0-0.5) K/uL Baso # (Auto) (0-0.2) K/uL Immature Gran # (Auto) (0.00-0.02) K/uL Toxic Granulation Toxic Vacuolation Dohle Bodies Polychromasia Rouleaux Sodium 148 H (136-145) mmol/L Potassium 3.5 (3.5-5.1) mmol/L Chloride 120 H (98-107) mmol/L Carbon Dioxide 24 (21-32) mmol/L Anion Gap 4.0 (3-11) BUN 36 H (7-18) mg/dl Creatinine 2.22 H (0.6-1.2) mg/dl Est Cr Clr Drug Dosing 35.3 ml/min Est GFR ( Amer) 26.5 Est GFR (Non-Af Amer) 22.8 BUN/Creatinine Ratio 16.1 (10-20) Glucose 113 H (70-99) mg/dl POC Glucose 112 H (70-99) mg/dl Lactate (0.4-2.0) mmol/L Calcium 8.1 L (8.5-10.1) mg/dl Magnesium 2.3 (1.8-2.4) mg/dl Total Bilirubin (0.2-1) mg/dl AST (15-37) U/L ALT (12-78) U/L Alkaline Phosphatase (45-117) U/L Total Protein (6.4-8.2) gm/dl Albumin (3.4-5.0) gm/dl Globulin (2.5-4.0) gm/dl Albumin/Globulin Ratio (0.9-2) Procalcitonin 4.58 H (0-0.5) ng/ml 05/19/20 05/18/20 05/18/20 Range/Units 06:08 20:47 20:28 WBC 9.28 (4.8-10.8) K/uL RBC 3.29 L (4.2-5.4) M/uL Hgb 8.9 L (12.0-16.0) g/dL Hct 29.1 L (37-47) % MCV 88.4 (80-100) fL MCH 27.1 (25-34) pg MCHC 30.6 L (32-36) g/dL RDW Std Deviation 76.3 H (36.4-46.3) fL RDW Coeff of Katina 24.0 H (11.5-14.5) % Plt Count 170 (130-400) K/uL MPV 9.9 (7.4-10.4) fL Immature Gran % (Auto) 0.2 % Neut % (Auto) 72.3 % Lymph % (Auto) 17.8 % Harding % (Auto) 9.1 % Eos % (Auto) 0.4 % Baso % (Auto) 0.2 % Neut # (Auto) 6.71 H (1.4-6.5) K/uL Lymph # (Auto) 1.65 (1.2-3.4) K/uL Harding # (Auto) 0.84 H (0.11-0.59) K/uL Eos # (Auto) 0.04 (0-0.5) K/uL Baso # (Auto) 0.02 (0-0.2) K/uL Immature Gran # (Auto) 0.02 (0.00-0.02) K/uL Toxic Granulation Toxic Vacuolation Dohle Bodies Polychromasia Rouleaux 1+ Sodium 150 H (136-145) mmol/L Potassium 3.6 (3.5-5.1) mmol/L Chloride 121 H (98-107) mmol/L Carbon Dioxide 23 (21-32) mmol/L Anion Gap 6.0 (3-11) BUN 38 H (7-18) mg/dl Creatinine 2.39 H (0.6-1.2) mg/dl Est Cr Clr Drug Dosing 32.2 ml/min Est GFR ( Amer) 24.2 Est GFR (Non-Af Amer) 20.9 BUN/Creatinine Ratio 15.9 (10-20) Glucose 122 H (70-99) mg/dl POC Glucose 119 H (70-99) mg/dl Lactate (0.4-2.0) mmol/L Calcium 8.1 L (8.5-10.1) mg/dl Magnesium (1.8-2.4) mg/dl Total Bilirubin (0.2-1) mg/dl AST (15-37) U/L ALT (12-78) U/L Alkaline Phosphatase (45-117) U/L Total Protein (6.4-8.2) gm/dl Albumin (3.4-5.0) gm/dl Globulin (2.5-4.0) gm/dl Albumin/Globulin Ratio (0.9-2) Procalcitonin (0-0.5) ng/ml 05/18/20 05/18/20 05/18/20 Range/Units 16:47 11:36 10:50 WBC (4.8-10.8) K/uL RBC (4.2-5.4) M/uL Hgb (12.0-16.0) g/dL Hct (37-47) % MCV (80-100) fL MCH (25-34) pg MCHC (32-36) g/dL RDW Std Deviation (36.4-46.3) fL RDW Coeff of Katina (11.5-14.5) % Plt Count (130-400) K/uL MPV (7.4-10.4) fL Immature Gran % (Auto) % Neut % (Auto) % Lymph % (Auto) % Harding % (Auto) % Eos % (Auto) % Baso % (Auto) % Neut # (Auto) (1.4-6.5) K/uL Lymph # (Auto) (1.2-3.4) K/uL Harding # (Auto) (0.11-0.59) K/uL Eos # (Auto) (0-0.5) K/uL Baso # (Auto) (0-0.2) K/uL Immature Gran # (Auto) (0.00-0.02) K/uL Toxic Granulation Toxic Vacuolation Dohle Bodies Polychromasia Rouleaux Sodium (136-145) mmol/L Potassium (3.5-5.1) mmol/L Chloride (98-107) mmol/L Carbon Dioxide (21-32) mmol/L Anion Gap (3-11) BUN (7-18) mg/dl Creatinine (0.6-1.2) mg/dl Est Cr Clr Drug Dosing ml/min Est GFR ( Amer) Est GFR (Non-Af Amer) BUN/Creatinine Ratio (10-20) Glucose (70-99) mg/dl POC Glucose 122 H 100 H (70-99) mg/dl Lactate 0.9 (0.4-2.0) mmol/L Calcium (8.5-10.1) mg/dl Magnesium (1.8-2.4) mg/dl Total Bilirubin (0.2-1) mg/dl AST (15-37) U/L ALT (12-78) U/L Alkaline Phosphatase (45-117) U/L Total Protein (6.4-8.2) gm/dl Albumin (3.4-5.0) gm/dl Globulin (2.5-4.0) gm/dl Albumin/Globulin Ratio (0.9-2) Procalcitonin (0-0.5) ng/ml 05/18/20 05/18/20 05/18/20 Range/Units 10:44 10:44 10:44 WBC 12.59 H (4.8-10.8) K/uL RBC 3.42 L (4.2-5.4) M/uL Hgb 9.1 L (12.0-16.0) g/dL Hct 30.7 L (37-47) % MCV 89.8 (80-100) fL MCH 26.6 (25-34) pg MCHC 29.6 L (32-36) g/dL RDW Std Deviation 78.4 H (36.4-46.3) fL RDW Coeff of Katina 24.2 H (11.5-14.5) % Plt Count 187 (130-400) K/uL MPV 9.8 (7.4-10.4) fL Immature Gran % (Auto) 0.2 % Neut % (Auto) 82.2 % Lymph % (Auto) 11.8 % Harding % (Auto) 5.6 % Eos % (Auto) 0.0 % Baso % (Auto) 0.2 % Neut # (Auto) 10.36 H (1.4-6.5) K/uL Lymph # (Auto) 1.48 (1.2-3.4) K/uL Harding # (Auto) 0.71 H (0.11-0.59) K/uL Eos # (Auto) 0.00 (0-0.5) K/uL Baso # (Auto) 0.02 (0-0.2) K/uL Immature Gran # (Auto) 0.02 (0.00-0.02) K/uL Toxic Granulation 1+ Toxic Vacuolation 1+ Dohle Bodies 1+ Polychromasia 1+ Rouleaux 1+ Sodium 152 H (136-145) mmol/L Potassium 3.8 (3.5-5.1) mmol/L Chloride 123 H (98-107) mmol/L Carbon Dioxide 23 (21-32) mmol/L Anion Gap 6.0 (3-11) BUN 40 H (7-18) mg/dl Creatinine 2.50 H (0.6-1.2) mg/dl Est Cr Clr Drug Dosing 30.8 ml/min Est GFR ( Amer) 22.9 Est GFR (Non-Af Amer) 19.8 BUN/Creatinine Ratio 15.8 (10-20) Glucose 110 H (70-99) mg/dl POC Glucose (70-99) mg/dl Lactate (0.4-2.0) mmol/L Calcium 7.6 L (8.5-10.1) mg/dl Magnesium (1.8-2.4) mg/dl Total Bilirubin 0.4 (0.2-1) mg/dl AST 53 H (15-37) U/L ALT 35 (12-78) U/L Alkaline Phosphatase 111 (45-117) U/L Total Protein 6.7 (6.4-8.2) gm/dl Albumin 1.8 L (3.4-5.0) gm/dl Globulin 4.9 H (2.5-4.0) gm/dl Albumin/Globulin Ratio 0.4 L (0.9-2) Procalcitonin 6.61 H (0-0.5) ng/ml Blood cultures 1/2 with gram-negative bacilli Repeat blood cultures-no growth to date PG Care Time/CCT Total # of Minutes Spent Total Time Spent with Patient: Total time spent is greater than 50% in coordination of care (as documented) at patient's floor/unit and/or counseling patient: Coding Level of Care Code 77717 Subseq Hosp Care Lvl 3 Diagnoses Septicemia A41.9 Acute metabolic encephalopathy G93.41 UTI (urinary tract infection) N39.0 SOLEDAD (acute kidney injury) N17.9 Hypernatremia E87.0 Anemia D64.9 Microscopic hematuria R31.29 Diabetes mellitus type 2 in obese E11.69; E66.9 Depression with anxiety F41.8 Dyslipidemia E78.5 History of recurrent UTI (urinary tract infection) Z87.440 CKD (chronic kidney disease) stage 3, GFR 30-59 ml/min N18.30 Chronic pain G89.29 Morbid obesity E66.01 Wound of foot S91.309A DVT prophylaxis Z29.9
[2020-05-19] MEDS: FERROUS GLUCONATE 324 MG TAB PO SCH (12:22)
[2020-05-19] MEDS ORDERED: ACETAMINOPHEN 325 MG TAB PO PRN (17:49)
[2020-05-19] MEDS: DOCUSATE SODIUM/SENNA 50/8.6MG TAB PO SCH (21:09)
[2020-05-19] MEDS: SIMVASTATIN 20 MG TAB PO SCH (21:09)
[2020-05-20] MEDS: HEPARIN SOD 5,000 UNIT/0.5 ML VIAL SQ SCH ×3 (05:49→21:00)
[2020-05-20] MEDS: MEROPENEM 500 MG in SYRINGE 0 ML IV SCH (05:53)
[2020-05-20] MEDS: DEXTROSE 5% 1,000 ML IV SCH (07:29)
[2020-05-20 07:49] LABS: Basophils # (auto) 0.02 K/uL (0-0.2); Basophils % (auto) 0.3 %; Eosinophils # (auto) 0.13 K/uL (0-0.5); Eosinophils % (auto) 1.7 %; Hematocrit (blood only) 29.5 % (37-47); Hemoglobin 9.1 g/dL (12.0-16.0); Immature Granulocytes # (auto) 0.04 K/uL (0.00-0.02); Immature Granulocytes % (auto) 0.5 %; Lymphocytes # (auto) 1.52 K/uL (1.2-3.4); Lymphocytes % (auto) 20.3 %; Mean Corpuscular Hgb Conc 30.8 g/dL (32-36); Mean Corpuscular Volume 87.5 fL (80-100); Mean Platelet Volume 10.4 fL (7.4-10.4); Monocytes # (auto) 0.47 K/uL (0.11-0.59); Monocytes % (auto) 6.3 %; Neutrophils # (auto) 5.32 K/uL (1.4-6.5); Neutrophils % (auto) 70.9 %; Platelet Count 171 K/uL (130-400); RDW Coefficient of Variation 23.5 % (11.5-14.5); RDW Standard Deviation 73.6 fL (36.4-46.3); Red Blood Count 3.37 M/uL (4.2-5.4)
[2020-05-20] MEDS: busPIRone 5 MG TAB PO SCH ×2 (07:54→20:54)
[2020-05-20] MEDS: VITAMIN B COMPLEX TAB PO SCH (07:55)
[2020-05-20] MEDS: FERROUS GLUCONATE 324 MG TAB PO SCH (07:55)
[2020-05-20] MEDS: ESCITALOPRAM OXALATE 10 MG TAB PO SCH (07:55)
[2020-05-20 08:13] LABS: BUN Creatinine Ratio 14.1 (10-20); Calcium 8.3 mg/dl (8.5-10.1); Creatinine Clr Calc Pharmacy 38.8 ml/min; Est GFR (African American) 29.7; Est GFR (Non-African American) 25.6; Magnesium 2.1 mg/dl (1.8-2.4); Potassium 3.2 mmol/L (3.5-5.1)
[2020-05-20 08:17] LABS: Anisocytosis Present
[2020-05-20] MEDS: INSULIN ASPART 100 UNITS/ML 3 ML PEN SC SCH ×4 (08:40→20:59)
[2020-05-20] MEDS: INSULIN GLARGINE SOLOSTAR 100 UNITS/ML 3 ML PEN SC SCH ×2 (08:41→20:59)
[2020-05-20] MEDS: CEFEPIME 2,000 MG in SYRINGE 0 ML IV SCH (11:31)
--- NOTE | 2020-05-20 12:23 | Hospitalist Progress Note ---
Date of Service May 20, 2020 Assessment & Plan (1) Septicemia: Dalia garcia is a 65-year-old female with a past medical history of ESBL/MRSA urinary tract infections with recent bilateral ureteral stent placement and ARF/SOLEDAD who presents as a readmission after return of fevers to 105 F and toxic appearance suspected due to recurrent UTI with concern for new left pyelonephritis Covid-19 negative on admission Sepsis 2/2 pyelonephritis, complicated, with ureteral stents in place CT abdomen/pelvis on admission with: Interval placement of bilateral ureteral stents, appropriately positioned. Decreased bilateral hydroureteronephrosis in comparison to prior exam. Increased left perinephric stranding in the interval, pyelonephritis not excluded.Urinary bladder decompressed from Fallon catheter. Haziness of the bladder wall may reflect cystitis. Seen by urology and recommended continued IV antibiotics and IV fluids, no need for stent exchange Febrile on admission which is now resolved Lactate negative, procalcitonin elevated at 6 but now back down to 2 Leukocytosis to 18.75 on admission and now resolved ABG 7.49/32/71/24 on admission-respiratory alkalosis secondary to sepsis Creatinine 2.2, BUN 27 on admission and creatinine then was worsening likely due to ATN from sepsis, now improving again Blood cultures now growing 1/2 with Proteus similar to Ur cx Repeat blood cultures-no growth to date Urine culture with Proteus mirabilis resistant to fluoroquinolones, ampicillin, and Bactrim -dc meropenem and narrow down to cefepime (has tolerated this previously) -Exchanged Fallon catheter here until 05/18 -Follow repeat blood cultures to ensure sterility Tylenol as needed for fever -Will discuss with urology about whether Fallon catheter needs to remain in place after discharge this time given that she likely has a Fallon catheter associated UTI -dc IV fluids -If for some reason continues to have fevers despite adequate treatment with antibiotics, consider repeat Covid-19 testing as she comes from a alf with a significant outbreak -having some loose stools today-hold senna and check C. diff if > 3/day after holding senna (2) Acute metabolic encephalopathy: Secondary to septicemia as above-now completely resolved (3) UTI (urinary tract infection): As above (4) SOLEDAD (acute kidney injury): Acute kidney failure on CKD stage III Creatinine continued to rise to 2.5, likely ATN from sepsis, however was also recommended to discontinue Jardiance upon last admission but this got continued upon discharge Would permanently discontinue the Jardiance Creatinine continues to improve today down to 2.0 with IV fluid hydration dc IV fluids Follow BMP in the morning Other electrolytes are acceptable Making urine No obstruction on CT abdomen/pelvis, with ureteral stents bilateral in place (5) Hypernatremia: Sodium much worse at 152 after receiving 3 L normal saline upon admission, now resolved after receiving D5W dc D5W Follow BMP (6) Anemia: Hemoglobin dropped to 8.9 from 11 on admission, likely hemodilutional, now stable at 9 Iron studies last admission showed mildly low serum iron but most likely anemia of chronic disease and fecal occult was negative Follow CBC Continue ferrous sulfate po (7) Microscopic hematuria: Noted due to chronic fissures and bladder and recurrent UTIs Urine cytology negative for high-grade urothelial carcinoma cells in 05/07/2020 Follow-up with urology as an outpatient (8) Diabetes mellitus type 2 in obese: Hemoglobin A1c 8.3% last admission Permanently discontinued Jardiance as above for renal failure Tradjenta would also need to be renally dosed Continue Lantus and watch for hyper or hypoglycemia-sugars well controlled here Accu-Cheks, sliding scale insulin (9) Depression with anxiety: Depression-stable on last admission Continue home buspirone and escitalopram -Would permanently discontinue Abilify as on last admission she went without it and did much better. That admission she also was noted to have some mild tardive dyskinesia (10) Dyslipidemia: continue simvastatin (11) History of recurrent UTI (urinary tract infection): Holding d-mannose from home Follows with urology (12) CKD (chronic kidney disease) stage 3, GFR 30-59 ml/min: With acute kidney injury as above Baseline creatinine previously around 1.6-1.9 -Avoid nephrotoxins -renally dose meds when appropriate -follow BMP (13) Chronic pain: Holding home fentanyl patch while with metabolic encephalopathy IV morphine as needed if has pain or withdrawal Currently has no pain (14) Morbid obesity: BMI 46.4 Needs weight loss (15) Wound of foot: Left foot with superficial abrasion with some serous drainage, no signs of infection Keep covered with OPTi foam Consult wound nurse Discussed with nursing care (16) DVT prophylaxis: heparin SQ and SCDs Disposition-continued stay, will need 2 weeks of IV antibiotics from last negative BCx . Possible discharge in next 1-2 days DNR/DNI Comes from [facility] as a longtime resident. She is dependent for all needs and is a mechanical lift. No PT/OT consultations needed Admission and Anticipated Discharge Date Admission Date: May 17, 2020 Subjective Pt feeling better today, is eating and drinking. Had incontinence to loose stool and feels some lower abd cramping now like has to have another BM No fevers. Much more alert and conversive Review of Systems Review of Systems: All systems reviewed & are unremarkable except as noted in HPI & below denies CP, SOB. Physical Exam Constitutional: WD/WN, vitals as above + morbidly obese; no acute distress Eyes: + anicteric sclerae ENMT: Ears: no hearing impairment Neck: trachea midline, no thyromegaly Respiratory: normal respiratory effort, lungs clear to auscultation Cardiovascular: RRR, no murmur, no edema Chest (Breasts): Chest: normal inspection of chest Gastrointestinal (Abdomen): normal bowel sounds, soft, nontender, no hepatosplenomegaly Musculoskeletal: Extremities: extremities normal to inspection; no cyanosis and no clubbing Skin: no rashes, warm and dry + wound (Left anterior foot with dressing in place); no erythema Neurologic: moves all extremities and awake; no focal motor deficits (But generally weak all over) Psychiatric: A+Ox3, euthymic affect Orientation: cooperative Eye Contact: good eye contact Motor Behavior: n tremor Genitourinary: Fallon in place with clear yellow urine Lymphatic: no lymphedema Results & Data Results & Data ([facility]) Vital Signs (Past 12 Hours) Vital Signs Temp Pulse Resp BP Pulse Ox 05/20/20 07:08 36.6 C 85 22 120/72 95 Laboratory Results 05/20/20 05/20/20 05/20/20 Range/Units 08:22 07:20 07:20 WBC (4.8-10.8) K/uL RBC (4.2-5.4) M/uL Hgb (12.0-16.0) g/dL Hct (37-47) % MCV (80-100) fL MCH (25-34) pg MCHC (32-36) g/dL RDW Std Deviation (36.4-46.3) fL RDW Coeff of Katina (11.5-14.5) % Plt Count (130-400) K/uL MPV (7.4-10.4) fL Immature Gran % (Auto) % Neut % (Auto) % Lymph % (Auto) % Phillips % (Auto) % Eos % (Auto) % Baso % (Auto) % Neut # (Auto) (1.4-6.5) K/uL Lymph # (Auto) (1.2-3.4) K/uL Phillips # (Auto) (0.11-0.59) K/uL Eos # (Auto) (0-0.5) K/uL Baso # (Auto) (0-0.2) K/uL Immature Gran # (Auto) (0.00-0.02) K/uL Anisocytosis Sodium 142 (136-145) mmol/L Potassium 3.2 L (3.5-5.1) mmol/L Chloride 112 H (98-107) mmol/L Carbon Dioxide 24 (21-32) mmol/L Anion Gap 6.0 (3-11) BUN 29 H (7-18) mg/dl Creatinine 2.02 H (0.6-1.2) mg/dl Est Cr Clr Drug Dosing 38.8 ml/min Est GFR ( Amer) 29.7 Est GFR (Non-Af Amer) 25.6 BUN/Creatinine Ratio 14.1 (10-20) Glucose 102 H (70-99) mg/dl POC Glucose 118 H (70-99) mg/dl Calcium 8.3 L (8.5-10.1) mg/dl Magnesium 2.1 (1.8-2.4) mg/dl Procalcitonin 2.37 H (0-0.5) ng/ml 05/20/20 05/19/20 05/19/20 Range/Units 07:20 20:42 16:28 WBC 7.50 (4.8-10.8) K/uL RBC 3.37 L (4.2-5.4) M/uL Hgb 9.1 L (12.0-16.0) g/dL Hct 29.5 L (37-47) % MCV 87.5 (80-100) fL MCH 27.0 (25-34) pg MCHC 30.8 L (32-36) g/dL RDW Std Deviation 73.6 H (36.4-46.3) fL RDW Coeff of Katina 23.5 H (11.5-14.5) % Plt Count 171 (130-400) K/uL MPV 10.4 (7.4-10.4) fL Immature Gran % (Auto) 0.5 % Neut % (Auto) 70.9 % Lymph % (Auto) 20.3 % Phillips % (Auto) 6.3 % Eos % (Auto) 1.7 % Baso % (Auto) 0.3 % Neut # (Auto) 5.32 (1.4-6.5) K/uL Lymph # (Auto) 1.52 (1.2-3.4) K/uL Phillips # (Auto) 0.47 (0.11-0.59) K/uL Eos # (Auto) 0.13 (0-0.5) K/uL Baso # (Auto) 0.02 (0-0.2) K/uL Immature Gran # (Auto) 0.04 H (0.00-0.02) K/uL Anisocytosis Present Sodium (136-145) mmol/L Potassium (3.5-5.1) mmol/L Chloride (98-107) mmol/L Carbon Dioxide (21-32) mmol/L Anion Gap (3-11) BUN (7-18) mg/dl Creatinine (0.6-1.2) mg/dl Est Cr Clr Drug Dosing ml/min Est GFR ( Amer) Est GFR (Non-Af Amer) BUN/Creatinine Ratio (10-20) Glucose (70-99) mg/dl POC Glucose 103 H 88 (70-99) mg/dl Calcium (8.5-10.1) mg/dl Magnesium (1.8-2.4) mg/dl Procalcitonin (0-0.5) ng/ml PG Care Time/CCT Total # of Minutes Spent Total Time Spent with Patient: Total time spent is greater than 50% in coordination of care (as documented) at patient's floor/unit and/or counseling patient: Coding Level of Care Code 54583 Subseq Hosp Care Lvl 3 Diagnoses Septicemia A41.9 Acute metabolic encephalopathy G93.41 UTI (urinary tract infection) N39.0 SOLEDAD (acute kidney injury) N17.9 Hypernatremia E87.0 Anemia D64.9 Microscopic hematuria R31.29 Diabetes mellitus type 2 in obese E11.69; E66.9 Depression with anxiety F41.8 Dyslipidemia E78.5 History of recurrent UTI (urinary tract infection) Z87.440 CKD (chronic kidney disease) stage 3, GFR 30-59 ml/min N18.30 Chronic pain G89.29 Morbid obesity E66.01 Wound of foot S91.309A DVT prophylaxis Z29.9
[2020-05-20] MEDS: SIMVASTATIN 20 MG TAB PO SCH (20:54)
[2020-05-21] MEDS ORDERED: LORATADINE 10 MG TAB PO ONE (00:09)
[2020-05-21] MEDS: CEFEPIME 2,000 MG in SYRINGE 0 ML IV SCH ×2 (01:50→12:06)
[2020-05-21] MEDS: HEPARIN SOD 5,000 UNIT/0.5 ML VIAL SQ SCH ×3 (05:51→21:25)
[2020-05-21 07:09] LABS: Basophils # (auto) 0.02 K/uL (0-0.2); Basophils % (auto) 0.3 %; Eosinophils # (auto) 0.08 K/uL (0-0.5); Eosinophils % (auto) 1.3 %; Hematocrit (blood only) 29.9 % (37-47); Hemoglobin 9.3 g/dL (12.0-16.0); Immature Granulocytes # (auto) 0.03 K/uL (0.00-0.02); Immature Granulocytes % (auto) 0.5 %; Lymphocytes # (auto) 1.14 K/uL (1.2-3.4); Lymphocytes % (auto) 19.1 %; Mean Corpuscular Hemoglobin 26.7 pg (25-34); Mean Corpuscular Hgb Conc 31.1 g/dL (32-36); Mean Corpuscular Volume 85.9 fL (80-100); Mean Platelet Volume 10.5 fL (7.4-10.4); Monocytes % (auto) 8.4 %; Neutrophils # (auto) 4.19 K/uL (1.4-6.5); Neutrophils % (auto) 70.4 %; Platelet Count 180 K/uL (130-400); RDW Coefficient of Variation 22.9 % (11.5-14.5); RDW Standard Deviation 71.8 fL (36.4-46.3); Red Blood Count 3.48 M/uL (4.2-5.4); White Blood Count 5.96 K/uL (4.8-10.8)
[2020-05-21 07:37] LABS: Anisocytosis Present
[2020-05-21 07:42] LABS: BUN Creatinine Ratio 14.4 (10-20); Calcium 8.2 mg/dl (8.5-10.1); Est GFR (African American) 37.4; Est GFR (Non-African American) 32.2; Magnesium 1.9 mg/dl (1.8-2.4); Potassium 3.2 mmol/L (3.5-5.1)
[2020-05-21] MEDS: ESCITALOPRAM OXALATE 10 MG TAB PO SCH (08:30)
[2020-05-21] MEDS: FERROUS GLUCONATE 324 MG TAB PO SCH (08:30)
[2020-05-21] MEDS: VITAMIN B COMPLEX TAB PO SCH (08:30)
[2020-05-21] MEDS: busPIRone 5 MG TAB PO SCH ×2 (08:30→21:26)
[2020-05-21] MEDS: INSULIN GLARGINE SOLOSTAR 100 UNITS/ML 3 ML PEN SC SCH ×2 (08:31→21:26)
[2020-05-21] MEDS: INSULIN ASPART 100 UNITS/ML 3 ML PEN SC SCH ×4 (08:32→21:24)
[2020-05-21] MEDS: LORATADINE 10 MG TAB PO SCH (08:42)
[2020-05-21] MEDS ORDERED: POTASSIUM CHLORIDE CRTAB 20 MEQ TABCR PO STA (12:17)
--- NOTE | 2020-05-21 13:11 | Hospitalist Progress Note ---
Date of Service May 21, 2020 Assessment & Plan (1) Septicemia: Dalia garcia is a 65-year-old female with a past medical history of ESBL/MRSA urinary tract infections with recent bilateral ureteral stent placement and ARF/SOLEDAD who presents as a readmission after return of fevers to 105 F and toxic appearance suspected due to recurrent UTI with concern for new left pyelonephritis Covid-19 negative on admission Sepsis 2/2 pyelonephritis, complicated, with ureteral stents in place CT abdomen/pelvis on admission with: Interval placement of bilateral ureteral stents, appropriately positioned. Decreased bilateral hydroureteronephrosis in comparison to prior exam. Increased left perinephric stranding in the interval, pyelonephritis not excluded.Urinary bladder decompressed from Fallon catheter. Haziness of the bladder wall may reflect cystitis. Seen by urology and recommended continued IV antibiotics and IV fluids, no need for stent exchange Febrile on admission which is now resolved Lactate negative, procalcitonin elevated at 6 but now back down to 2 Leukocytosis to 18.75 on admission and now resolved ABG 7.49/32/71/24 on admission-respiratory alkalosis secondary to sepsis Creatinine 2.2, BUN 27 on admission and creatinine then was worsening likely due to ATN from sepsis, now improving again Blood cultures now growing /2 with Proteus similar to Ur cx Repeat blood cultures-no growth to date from 05/18 Urine culture with Proteus mirabilis resistant to fluoroquinolones, ampicillin, and Bactrim -Initially was on meropenem and have since narrowed down to cefepime (has tolerated this previously)-plan to complete 14-day course on 05/31 -Place ultrasound-guided peripheral IV today -Exchanged Fallon catheter here until 05/18 now will discontinue this as per my discussion with urology -Follow repeat blood cultures to ensure sterility (2) Acute metabolic encephalopathy: Secondary to septicemia as above-now completely resolved (3) UTI (urinary tract infection): As above (4) SOLEDAD (acute kidney injury): Acute kidney failure on CKD stage III Creatinine continued to rise to 2.5 after admission, likely ATN from sepsis, however was also recommended to discontinue Jardiance upon last admission but this got continued upon discharge Would permanently discontinue the Jardiance Creatinine continues to improve today down to 1.6, received IV fluids earlier Follow BMP Other electrolytes are acceptable Making urine No obstruction on CT abdomen/pelvis, with ureteral stents bilateral in place (5) Hypernatremia: Now resolved after receiving D5W and is drinking (6) Anemia: Hemoglobin dropped to 8.9 from 11 on admission, likely hemodilutional, now stable at 9.3 Iron studies last admission showed mildly low serum iron but most likely anemia of chronic disease and fecal occult was negative Follow CBC Continue ferrous sulfate po (7) Microscopic hematuria: Noted due to chronic fissures and bladder and recurrent UTIs Urine cytology negative for high-grade urothelial carcinoma cells in 05/07/2020 Follow-up with urology as an outpatient (8) Diabetes mellitus type 2 in obese: Hemoglobin A1c 8.3% last admission Permanently discontinued Jardiance as above for renal failure Tradjenta would also need to be renally dosed Continue Lantus and watch for hyper or hypoglycemia-sugars well controlled here Accu-Cheks, sliding scale insulin (9) Depression with anxiety: Depression-stable on last admission Continue home buspirone and escitalopram -Would permanently discontinue Abilify as on last admission she went without it and did much better. That admission she also was noted to have some mild tardive dyskinesia (10) Dyslipidemia: continue simvastatin (11) History of recurrent UTI (urinary tract infection): Holding d-mannose from home Follows with urology Lies in bed all day at a group home and has urinary incontinence. Reports she frequently sits in her own urine and stool at the group home. (12) CKD (chronic kidney disease) stage 3, GFR 30-59 ml/min: With acute kidney injury as above Baseline creatinine previously around 1.6-1.9 -Avoid nephrotoxins -renally dose meds when appropriate -follow BMP (13) Chronic pain: Held home fentanyl patch while with metabolic encephalopathy, but now with withdrawal symptoms of nausea, loose stools, pains Restart fentanyl patch today (14) Morbid obesity: BMI 46.4 Needs weight loss (15) Wound of foot: Left foot with superficial abrasion with some serous drainage, no signs of infection Keep covered with OPTi foam Consult wound nurse Discussed with nursing care (16) Cough: With mild productive cough she is reporting for the last 24 hours Remains afebrile, not hypoxic Lungs sound clear but diminished based on morbid obesity/body habitus Provide incentive spirometry Checking Covid again anyway for discharge purposes, lives at a group home with a large Covid outbreak, however do not suspect Covid at this time (17) DVT prophylaxis: heparin SQ and SCDs Disposition-continued stay, will need 2 weeks of IV antibiotics from last negative BCx . Possible discharge tomorrow if they can provide cefepime DNR/DNI Comes from [facility] as a longtime resident. She is dependent for all needs and is a mechanical lift. No PT/OT consultations needed Admission and Anticipated Discharge Date Admission Date: May 17, 2020 Subjective Patient reports feeling some abdominal cramping and loose stools again today and nausea does not feel like eating. She is also having pain in her back. She has not had her fentanyl patch in several days. Otherwise no chest pain or shortness of breath. She has noticed a cough the last couple of days. No fevers. Review of Systems Review of Systems: All systems reviewed & are unremarkable except as noted in HPI & below Physical Exam Constitutional: WD/WN, vitals as above + morbidly obese; no acute distress Eyes: + anicteric sclerae ENMT: Ears: no hearing impairment Neck: trachea midline, no thyromegaly Respiratory: normal respiratory effort, lungs clear to auscultation Cardiovascular: RRR, no murmur, no edema Chest (Breasts): Chest: normal inspection of chest Gastrointestinal (Abdomen): Inspection/Auscultation: normal bowel sounds Percussion/Palpation: + abdomen tender (Mild tenderness to palpation in mid abdomen without guarding or rebound) and abdomen soft Musculoskeletal: Extremities: extremities normal to inspection; no cyanosis and no clubbing Skin: no rashes, warm and dry + wound (Left anterior foot with dressing in place); no erythema Neurologic: moves all extremities and awake; no focal motor deficits (But generally weak all over) Psychiatric: A+Ox3, euthymic affect Orientation: cooperative Eye Contact: good eye contact Genitourinary: Fallon catheter in place draining clear yellow urine Lymphatic: no lymphedema Results & Data Results & Data ([facility]) Vital Signs (Past 12 Hours) Vital Signs Temp Pulse Resp BP Pulse Ox 05/21/20 08:13 36.9 C 74 20 139/77 94 Laboratory Results 05/21/20 05/21/20 05/21/20 Range/Units 12:24 08:11 06:33 WBC (4.8-10.8) K/uL RBC (4.2-5.4) M/uL Hgb (12.0-16.0) g/dL Hct (37-47) % MCV (80-100) fL MCH (25-34) pg MCHC (32-36) g/dL RDW Std Deviation (36.4-46.3) fL RDW Coeff of Katina (11.5-14.5) % Plt Count (130-400) K/uL MPV (7.4-10.4) fL Immature Gran % (Auto) % Neut % (Auto) % Lymph % (Auto) % Rich % (Auto) % Eos % (Auto) % Baso % (Auto) % Neut # (Auto) (1.4-6.5) K/uL Lymph # (Auto) (1.2-3.4) K/uL Rich # (Auto) (0.11-0.59) K/uL Eos # (Auto) (0-0.5) K/uL Baso # (Auto) (0-0.2) K/uL Immature Gran # (Auto) (0.00-0.02) K/uL Anisocytosis Sodium 141 (136-145) mmol/L Potassium 3.2 L (3.5-5.1) mmol/L Chloride 113 H (98-107) mmol/L Carbon Dioxide 22 (21-32) mmol/L Anion Gap 6.0 (3-11) BUN 24 H (7-18) mg/dl Creatinine 1.67 H D (0.6-1.2) mg/dl Est Cr Clr Drug Dosing 47.0 ml/min Est GFR ( Amer) 37.4 Est GFR (Non-Af Amer) 32.2 BUN/Creatinine Ratio 14.4 (10-20) Glucose 106 H (70-99) mg/dl POC Glucose 120 H 106 H (70-99) mg/dl Calcium 8.2 L (8.5-10.1) mg/dl Magnesium 1.9 (1.8-2.4) mg/dl 05/21/20 05/20/20 05/20/20 Range/Units 06:33 20:56 17:12 WBC 5.96 (4.8-10.8) K/uL RBC 3.48 L (4.2-5.4) M/uL Hgb 9.3 L (12.0-16.0) g/dL Hct 29.9 L (37-47) % MCV 85.9 (80-100) fL MCH 26.7 (25-34) pg MCHC 31.1 L (32-36) g/dL RDW Std Deviation 71.8 H (36.4-46.3) fL RDW Coeff of Katina 22.9 H (11.5-14.5) % Plt Count 180 (130-400) K/uL MPV 10.5 H (7.4-10.4) fL Immature Gran % (Auto) 0.5 % Neut % (Auto) 70.4 % Lymph % (Auto) 19.1 % Rich % (Auto) 8.4 % Eos % (Auto) 1.3 % Baso % (Auto) 0.3 % Neut # (Auto) 4.19 (1.4-6.5) K/uL Lymph # (Auto) 1.14 L (1.2-3.4) K/uL Rich # (Auto) 0.50 (0.11-0.59) K/uL Eos # (Auto) 0.08 (0-0.5) K/uL Baso # (Auto) 0.02 (0-0.2) K/uL Immature Gran # (Auto) 0.03 H (0.00-0.02) K/uL Anisocytosis Present Sodium (136-145) mmol/L Potassium (3.5-5.1) mmol/L Chloride (98-107) mmol/L Carbon Dioxide (21-32) mmol/L Anion Gap (3-11) BUN (7-18) mg/dl Creatinine (0.6-1.2) mg/dl Est Cr Clr Drug Dosing ml/min Est GFR ( Amer) Est GFR (Non-Af Amer) BUN/Creatinine Ratio (10-20) Glucose (70-99) mg/dl POC Glucose 113 H 103 H (70-99) mg/dl Calcium (8.5-10.1) mg/dl Magnesium (1.8-2.4) mg/dl PG Care Time/CCT Total # of Minutes Spent Total Time Spent with Patient: Total time spent is greater than 50% in coordination of care (as documented) at patient's floor/unit and/or counseling patient: Coding Level of Care Code 98751 Subseq Hosp Care Lvl 3 Diagnoses Septicemia A41.9 Acute metabolic encephalopathy G93.41 UTI (urinary tract infection) N39.0 SOLEDAD (acute kidney injury) N17.9 Hypernatremia E87.0 Anemia D64.9 Microscopic hematuria R31.29 Diabetes mellitus type 2 in obese E11.69; E66.9 Depression with anxiety F41.8 Dyslipidemia E78.5 History of recurrent UTI (urinary tract infection) Z87.440 CKD (chronic kidney disease) stage 3, GFR 30-59 ml/min N18.30 Chronic pain G89.29 Morbid obesity E66.01 Wound of foot S91.309A Cough R05 DVT prophylaxis Z29.9
[2020-05-21] MEDS ORDERED: fentaNYL 12 MCG/HR TDSY TD SCH (13:30)
[2020-05-21] MEDS: CHECK fentaNYL PATCH PLACEMENT SCH (15:26)
[2020-05-21] MEDS: SIMVASTATIN 20 MG TAB PO SCH (21:26)
[2020-05-22] MEDS: CEFEPIME 2,000 MG in SYRINGE 0 ML IV SCH ×2 (00:22→13:08)
[2020-05-22] MEDS: CHECK fentaNYL PATCH PLACEMENT SCH ×3 (00:22→16:15)
[2020-05-22 05:19] LABS: Basophils # (auto) 0.03 K/uL (0-0.2); Basophils % (auto) 0.4 %; Eosinophils # (auto) 0.05 K/uL (0-0.5); Eosinophils % (auto) 0.6 %; Hematocrit (blood only) 31.9 % (37-47); Immature Granulocytes # (auto) 0.05 K/uL (0.00-0.02); Immature Granulocytes % (auto) 0.6 %; Lymphocytes # (auto) 1.32 K/uL (1.2-3.4); Lymphocytes % (auto) 16.4 %; Mean Corpuscular Hemoglobin 26.5 pg (25-34); Mean Corpuscular Hgb Conc 31.3 g/dL (32-36); Mean Corpuscular Volume 84.6 fL (80-100); Mean Platelet Volume 9.9 fL (7.4-10.4); Monocytes # (auto) 0.65 K/uL (0.11-0.59); Monocytes % (auto) 8.1 %; Neutrophils # (auto) 5.93 K/uL (1.4-6.5); Neutrophils % (auto) 73.9 %; Platelet Count 197 K/uL (130-400); RDW Coefficient of Variation 22.5 % (11.5-14.5); RDW Standard Deviation 69.7 fL (36.4-46.3); Red Blood Count 3.77 M/uL (4.2-5.4); White Blood Count 8.03 K/uL (4.8-10.8)
[2020-05-22] MEDS: HEPARIN SOD 5,000 UNIT/0.5 ML VIAL SQ SCH ×2 (05:23→12:48)
[2020-05-22 05:42] LABS: BUN Creatinine Ratio 15.7 (10-20); Calcium 7.8 mg/dl (8.5-10.1); Creatinine Clr Calc Pharmacy 50.6 ml/min; Est GFR (African American) 40.9; Est GFR (Non-African American) 35.3; Potassium 3.4 mmol/L (3.5-5.1)
[2020-05-22 05:57] LABS: Anisocytosis Present
[2020-05-22] MEDS: FERROUS GLUCONATE 324 MG TAB PO SCH (08:47)
[2020-05-22] MEDS: busPIRone 5 MG TAB PO SCH (08:47)
[2020-05-22] MEDS: LORATADINE 10 MG TAB PO SCH (08:47)
[2020-05-22] MEDS: ESCITALOPRAM OXALATE 10 MG TAB PO SCH (08:47)
[2020-05-22] MEDS: VITAMIN B COMPLEX TAB PO SCH (08:47)
[2020-05-22] MEDS: INSULIN GLARGINE SOLOSTAR 100 UNITS/ML 3 ML PEN SC SCH (08:48)
[2020-05-22] MEDS: INSULIN ASPART 100 UNITS/ML 3 ML PEN SC SCH ×2 (08:48→12:37)
[2020-05-22] MEDS ORDERED: FAMOTIDINE 20 MG TAB PO SCH (11:45)
[2020-05-22] MEDS ORDERED: CEFDINIR 300 MG CAP PO SCH (12:30)
--- NOTE | 2020-05-22 16:11 | Discharge Summary ---
Date of Service May 22, 2020 Admission HPI Per Admitting Provider Dalia is a 65-year-old woman with a past medical history of recurrent UTIs, ESBL/MRSA UTIs with indwelling catheter, diabetes, osteoarthritis, chronic anemia, SOLEDAD/ARF, and obesity who presents as a readmission from [facility] after the return of fevers and hematuria following an admission from 04/27 through 05/12 for a Klebsiella and candidal UTI. Subjective history not available due to reduced consciousness. By collateral history patient with reduced speech and cognitive function at baseline. Principal Diagnosis Proteus UTI and septicemia, acute metabolic encephalopathy, acute kidney injury Covid-19 Discharge Exam Constitutional WD/WN, vitals as above + morbidly obese; no acute distress Eyes + anicteric sclerae ENMT Ears: no hearing impairment Neck trachea midline, no thyromegaly Respiratory normal respiratory effort, lungs clear to auscultation Cardiovascular RRR, no murmur, no edema Chest (Breasts) Chest: normal inspection of chest Gastrointestinal (Abdomen) normal bowel sounds, soft, nontender, no hepatosplenomegaly Musculoskeletal Extremities: extremities normal to inspection; no cyanosis and no clubbing Skin no rashes, warm and dry + wound (Left anterior foot with dressing in place); no erythema Neurologic moves all extremities and awake; no focal motor deficits (But generally weak all over) Psychiatric A+Ox3, euthymic affect Orientation: cooperative Eye Contact: good eye contact Motor Behavior: n tremor Lymphatic no lymphedema Discharge Data Allergies Allergy/AdvReac Type Severity Reaction Status Date / Time Penicillins Allergy Unknown . Verified 05/17/20 00:11 pregabalin Allergy Unknown . Verified 05/17/20 00:11 tramadol Allergy Unknown . Verified 05/17/20 00:11 cefazolin [From Anc] Allergy Unknown Verified 05/17/20 00:11 ertapenem AdvReac Intermediate Confusion,H Verified 05/17/20 00:11 allucinatio ns Consultations 05/17/20 01:58 ED Decision to Admit Stat 05/17/20 02:14 Consult Urology Routine Ordered Studies 05/17/20 00:12 CT abd pelvis wo con Urgent CT head/brain wo con Urgent Chest x-ray Hospital Course (1) Septicemia: Dalia garcia is a 65-year-old female with a past medical history of ESBL/MRSA urinary tract infections with recent bilateral ureteral stent placement and ARF/SOLEDAD who presents as a readmission after return of fevers to 105 F and toxic appearance suspected due to recurrent UTI with concern for new left pyelonephritis Covid-19 negative on admission Sepsis 2/2 pyelonephritis, complicated, with ureteral stents in place CT abdomen/pelvis on admission with: Interval placement of bilateral ureteral stents, appropriately positioned. Decreased bilateral hydroureteronephrosis in comparison to prior exam. Increased left perinephric stranding in the interval, pyelonephritis not excluded.Urinary bladder decompressed from Fallon catheter. Haziness of the bladder wall may reflect cystitis. Seen by urology and recommended continued IV antibiotics and IV fluids, no need for stent exchange Febrile on admission which is now resolved Lactate negative, procalcitonin elevated at 6 but now back down to 2 Leukocytosis to 18.75 on admission and now resolved ABG 7.49/32/71/24 on admission-respiratory alkalosis secondary to sepsis Creatinine 2.2, BUN 27 on admission and creatinine then was worsening likely due to ATN from sepsis, now improving again Blood cultures now growing 1/2 with Proteus similar to Ur cx Repeat blood cultures-no growth to date from 05/18 Urine culture with Proteus mirabilis resistant to fluoroquinolones, ampicillin, and Bactrim -Initially was on meropenem and have since narrowed down to cefepime (has tolerated this previously)-plan to complete 14-day course of cefdinir 300 mg p.o. twice daily on 05/31 -Discontinued Fallon catheter as per my discussion with urology (2) Acute metabolic encephalopathy: Secondary to septicemia as above-now completely resolved (3) UTI (urinary tract infection): As above (4) SOLEDAD (acute kidney injury): Acute kidney failure on CKD stage III Creatinine continued to rise to 2.5 after admission, likely ATN from sepsis, however was also recommended to discontinue Jardiance upon last admission but this got continued upon discharge Would permanently discontinue the Jardiance Creatinine continues to improve today down to 1.5, received IV fluids earlier Follow BMP as an outpatient periodically Other electrolytes are acceptable Making urine No obstruction on CT abdomen/pelvis, with ureteral stents bilateral in place Follow-up with urology after discharge within 1 month for bilateral ureteral stents (5) Hypernatremia: Now resolved after receiving D5W and is drinking (6) Anemia: Hemoglobin dropped to 8.9 from 11 on admission, likely hemodilutional, now stable at 10.0 Iron studies last admission showed mildly low serum iron but most likely anemia of chronic disease and fecal occult was negative Follow CBC Continue ferrous sulfate po (7) Microscopic hematuria: Noted due to chronic fissures and bladder and recurrent UTIs Urine cytology negative for high-grade urothelial carcinoma cells in 05/07/2020 Follow-up with urology as an outpatient (8) Diabetes mellitus type 2 in obese: Hemoglobin A1c 8.3% last admission Permanently discontinued Jardiance as above for renal failure Restart Tradjenta on discharge Received insulin while here (9) Depression with anxiety: Depression-stable on last admission Continue home buspirone and escitalopram -Would permanently discontinue Abilify as on last admission she went without it and did much better. That admission she also was noted to have some mild tardive dyskinesia (10) Dyslipidemia: continue simvastatin (11) History of recurrent UTI (urinary tract infection): Restart d-mannose from home Follows with urology Lies in bed all day at a [facility] and has urinary incontinence. Reports she frequently sits in her own urine and stool at the [facility]. Recommend discontinuing oxybutynin as could contribute to recurrent UTIs (12) CKD (chronic kidney disease) stage 3, GFR 30-59 ml/min: With acute kidney injury as above resolved Baseline creatinine previously around 1.6-1.9 now back to baseline -Avoid nephrotoxins -renally dose meds when appropriate -follow BMP (13) Chronic pain: Held home fentanyl patch while with metabolic encephalopathy, but now with withdrawal symptoms of nausea, loose stools, pains Restarted fentanyl patch on 05/21 (14) Morbid obesity: BMI 46.4 Needs weight loss (15) Wound of foot: Left foot with superficial abrasion with some serous drainage, no signs of infection Keep covered with OPTi foam and Aquacel Ag Consult wound nurse appreciated (16) Cough: With mild productive cough she started having on 05/20-05/21 Tested positive for Covid-19 Remains afebrile, not hypoxic not meet criteria for dexamethasone, remdesivir, or convalescent plasma at this time Lungs sound clear but diminished based on morbid obesity/body habitus Continue supportive care for Covid-19 at [facility] If becomes hypoxic less than 94% or requires oxygen, recommend starting dexamethasone and consider transfer back to hospital if significantly worse (17) COVID-19: As above (18) DVT prophylaxis: heparin SQ and SCDs were provided Disposition-stable for discharge to [facility] DNR/DNI Comes from [facility] as a longtime resident. She is dependent for all needs and is a mechanical lift. No PT/OT consultations needed Total Time Total Time Spent Total Time Spent (In Minutes): 35 minutes Total Time Includes: Examination of the Patient, Discharge Planning and Medication Reconciliation Discharge Plan Discharge Items Patient Disposition: Transfer Assisted Fac Reason For Visit: SEPSIS Discharge Diagnosis: Proteus UTI and septicemia, acute kidney injury, acute metabolic encephalopathy, Covid-19 Condition on Discharge: Fair Activity: Resume your previous activity Non-emergency contact: Primary Care Provider Call non-emergency contact if: you have any medication questions and your symptoms worsen Follow-up/Referrals: Devante Carson [Primary Care Provider] - Diet: Carb Consistent or DM2 Addtl Attending Provider Instructions: Finish out cefdinir 300 mg p.o. twice daily through the end of 05/31 for your urinary tract infection and bloodstream infection. Unfortunately, you tested positive for Covid-19 while you are here but you are not having any trouble with your oxygen levels at this time. If your oxygen levels drop below back at the nursing facility, you would want to be started on dexamethasone at that time. Please follow-up with urology in 1 month for your history of recurrent urinary tract infections. Pending Studies at Discharge: No Stand-Alone Forms: [facility] Skilled Items Patient informed of condition?: Yes DNR: Yes Discharge Level of Care: Skilled Communicable Disease: Yes Discharge Prognosis: Improving Lines: None Urinary Catheter: No Medications and DC Order Prescriptions: New cefdinir 300 mg Capsule 300 mg PO BID 9 Days Qty: 18 RF: 0 famotidine 20 mg Tablet 20 mg PO BID Qty: 60 RF: 0 Continued mineral oil-isopropyl myristat Lotion 1 applic TOPICAL BID RF: 0 Tradjenta 5 mg Tablet 5 mg PO QAM RF: 0 ferrous gluconate 324 mg (38 mg iron) Tablet 324 mg PO QAM Qty: 30 RF: 0 escitalopram oxalate 10 mg tablet 10 mg PO QAM RF: 0 fentanyl 12 mcg/hr Patch 72 Hour 1 patch TRANSDERMAL Q72H Qty: 1 RF: 0 acetaminophen [Tylenol] 325 mg Tablet 325 mg PO Q4H PRN (Reason: Fever Or Pain) RF: 0 meloxicam 15 mg Tablet 15 mg PO QAM RF: 0 simvastatin 20 mg Tablet 20 mg PO HS RF: 0 buspirone 10 mg Tablet 10 mg PO BID RF: 0 aspirin 81 mg Tablet,Chewable 81 mg PO QAM RF: 0 dicyclomine 10 mg Capsule 10 mg PO Q6H PRN (Reason: abdominal cramping) RF: 0 vitamin B complex Tablet 1 tab PO QAM RF: 0 cholecalciferol (vitamin D3) [Vitamin D3] 125 mcg (5,000 unit) Tablet 5,000 unit PO QAM RF: 0 D-Mannose 500mg Capsule 1,000 mg PO BID RF: 0 Changed baclofen 10 mg Tablet 10 mg PO TID PRN (Reason: Muscle spasm) Qty: 0 RF: 0 sennosides-docusate sodium [Senokot-S] 8.6-50 mg Tablet 1 tab PO HS PRN (Reason: Constipation) Qty: 0 RF: 0 Discontinued aripiprazole 5 mg tablet 5 mg PO QAM RF: 0 Jardiance 25 mg Tablet 25 mg PO QAM RF: 0 oxybutynin chloride 5 mg tablet 10 mg PO HS RF: 0 Discharge Orders: Discharge Order (Routine); Ordered 05/22/20 Ordered By: Heather Hough Admission Data Admit Date/Time: 05/17/20 01:21 EDT Attending Provider: Heather Hough Admit Provider: Raleigh Larose Primary Care Provider: Devante Carson Other Providers: Raymond Harris ; Tyree Toney Coding Level of Care Code D/C Day Management >30 mins Diagnoses Septicemia A41.9 Acute metabolic encephalopathy G93.41 UTI (urinary tract infection) N39.0 SOLEDAD (acute kidney injury) N17.9 Hypernatremia E87.0 Anemia D64.9 Microscopic hematuria R31.29 Diabetes mellitus type 2 in obese E11.69; E66.9 Depression with anxiety F41.8 Dyslipidemia E78.5 History of recurrent UTI (urinary tract infection) Z87.440 CKD (chronic kidney disease) stage 3, GFR 30-59 ml/min N18.30 Chronic pain G89.29 Morbid obesity E66.01 Wound of foot S91.309A Cough R05 COVID-19 U07.1 DVT prophylaxis Z29.9
--- NOTE | 2020-06-02 14:24 | Coding Query ---
CQ CODING QUERY To promote full compliance with coding requirements relating to patient care, provider participation is requested in all cases of assisted living care manager uncertainty. Please assist us with the question(s) below: Coding Question(s): There is documentation of UTI and Pyelonephritis with documentation on the H&P of recently placed ureteral stents and documentation of potentially infected stents and the potentially infected ureteral stents were not documented past the H&P and these were not removed, and then Progress Notes 05/18/20 through 05/20/20 document, "Will discuss with urology about whether Fallon catheter needs to remain in place after discharge this time given that she likely has a Fallon catheter associated UTI". Please specify below, in your clinical opinion, regarding the UTI/Pyelonephritis. ( x ) UTI/Pyelonephritis likely due to Indwelling Fallon Catheter ( ) UTI/Pyelonephritis likely due to infected ureteral stents ( ) UTI/Pyelonephritis likely due to Other: Please Specify ( ) UTI/Pyelonephritis with unknown likely etiology Physician's Response(s): Thank you Karen Gaines Principal Diagnosis: "that condition established after study, to be chiefly responsible for occasioning the admission of the patient to the hospital for care." Co-Existing Principal Diagnosis: "when two or more diagnoses equally meet the criteria for principal diagnosis as determined by the circumstances of admission, diagnostic work up, and/or therapy provided, and the Alphabetic Index, Tabular List, or another coding guideline does not provide sequencing direction, any one of the diagnoses may be sequenced first." "When the physician has documented what appears to be a current diagnosis in the body of the record, but has not included the diagnosis in the final diagnostic statement, the physician should be asked whether the diagnosis should be added." (Source Coding Clinic 2 QTR90. p3-4) ANDREA
== END 2020-05-22 17:16 | DRG 698 ==
LOC: ED 23:22 → SUATTDRO 05-17 01:21 → 2S 05-17 01:21 → 3W 05-19 17:27

== ENCOUNTER 2020-06-17 21:57 | Inpatient (IN) ==
[2020-06-17 22:30] LABS: Basophils # (auto) 0.06 K/uL (0-0.2); Basophils % (auto) 0.6 %; Eosinophils # (auto) 0.52 K/uL (0-0.5); Eosinophils % (auto) 5.1 %; Hematocrit (blood only) 30.7 % (37-47); Hemoglobin 9.6 g/dL (12.0-16.0); Immature Granulocytes # (auto) 0.03 K/uL (0.00-0.02); Immature Granulocytes % (auto) 0.3 %; Lymphocytes # (auto) 2.29 K/uL (1.2-3.4); Lymphocytes % (auto) 22.4 %; Mean Corpuscular Hemoglobin 27.4 pg (25-34); Mean Corpuscular Hgb Conc 31.3 g/dL (32-36); Mean Corpuscular Volume 87.7 fL (80-100); Mean Platelet Volume 8.4 fL (7.4-10.4); Monocytes # (auto) 0.45 K/uL (0.11-0.59); Monocytes % (auto) 4.4 %; Neutrophils # (auto) 6.89 K/uL (1.4-6.5); Neutrophils % (auto) 67.2 %; Platelet Count 430 K/uL (130-400); RDW Coefficient of Variation 22.2 % (11.5-14.5); RDW Standard Deviation 71.3 fL (36.4-46.3); White Blood Count 10.24 K/uL (4.8-10.8)
[2020-06-17 22:47] LABS: Albumin Level 2.1 gm/dl (3.4-5.0); BUN Creatinine Ratio 11.1 (10-20); Calcium 8.8 mg/dl (8.5-10.1); Creatinine Clr Calc Pharmacy 17.9 ml/min; Est GFR (African American) 11.5; Est GFR (Non-African American) 9.9; Potassium 4.9 mmol/L (3.5-5.1)
[2020-06-17 22:50] LABS: Albumin Globulin Ratio 0.4 (0.9-2); Anisocytosis Present; Bilirubin,Total 0.2 mg/dl (0.2-1); Globulin 5.8 gm/dl (2.5-4.0); Polychromasia 1+; Total Protein 7.9 gm/dl (6.4-8.2)
[2020-06-17] MEDS ORDERED: SODIUM CHLORIDE 0.9% 1000ML 1,000 ML IV ONE (22:51)
[2020-06-17 23:00] LABS: Appearance Urine Turbid (Clear); Bilirubin Urine Negative (Negative); Blood Urine 3+ (Negative); Color Urine Yellow; Epithelial Cell Urine Auto >30 /lpf (0-5); Glucose Urine UA Negative (Negative); Ketones Urine Negative (Negative); Leukocyte Esterase Urine 3+ (Negative); Nitrite Urine Positive (Negative); Protein Urine 1+ (Negative); RBC Urine Automated >30 /hpf (0-4); Specific Gravity Urine 1.009 (1.000-1.030); Urobilinogen Urine Negative (Negative); WBC Urine Automated >30 /hpf (0-5)
--- NOTE | 2020-06-17 23:02 | Emergency Department Note ---
Impression & Plan SOLEDAD (acute kidney injury), Weakness, Anemia ED Provider Note NAME: MARGE MERCEDES AGE: 65 SEX: F : 1955 ARRIVES VIA: Ambulance INFORMANT: Patient ED PROVIDER(S): Wesley Rausch DO CHIEF COMPLAINT: Abnormal labs HPI: Patient is a 65-year-old female with a past medical history of Covid, hypertension, diabetes and incontinence that presents the ER for an elevated creatinine. She had blood work drawn as an outpatient at [facility] and the creatinine was elevated at 4 up from a baseline of 2. She has no complaints at this time. Pt denies headache, change in vision, fevers, chest pain, shortness of breath, nausea, vomiting, and diarrhea. She does admit that she has been drinking less fluids recently over the past 24 hours. She denies any cough or loss of taste or smell. She notes that she was Covid positive and then did test negative. ROS: See above HPI for pertinent positives & negatives. A total of 10 systems re viewed and were otherwise negative. PAST MEDICAL HISTORY:See Below PAST SURGICAL HISTORY:See Below FAMILY HISTORY:See Below SOCIAL HISTORY:See Below HOME MEDICATIONS:See Below ALLERGIES:See Below VITALS:See Below PHYSICAL EXAMINATION: GENERAL: Sitting up in bed, alert, overly obese, disheveled, nontoxic EYE EXAM: normal conjunctiva. OROPHARYNX: Mask in place LUNGS: Diminished bilaterally. Normal chest wall mechanics HEART: no murmurs, S1 normal and S2 normal ABDOMEN: abdomen soft, non-tender, normo-active bowel sounds, no masses, no rebound or guarding. UPPER EXTREMITIES: upper extremities are grossly normal. LOWER EXTREMITIES: No pitting edema. NEURO EXAM: Normal sensorium, cranial nerves II-XII grossly intact, normal speech, no gross weakness of arms. MEDICAL DECISION MAKING: Patient is a 65-year-old female who presents the ER referred in from [facility] for elevated creatinine. Patient does have 2 ureteral stents placed by urology at [facility]. IV was established blood work was obtained. Labs show no significant leukocytosis. Mild anemia 9.6. BMP with a creatinine of 4.4 up from baseline of about 2. LFTs bilirubin was unremarkable. Fallon was placed. Patient was given a bolus of IV fluids. She was updated bedside. Rapid Covid was negative. Patient was updated bedside and discussed with hospitalist for further evaluation. UA resulted and was contaminated with multiple epithelial cells but did have nitrates. This resulted after admission. Defer to the hospitalist. KUB showed stents in good position. Triage Nursing notes reviewed. Prior medical records reviewed Vital Signs: reviewed and remarkable for HTN Differential diagnosis: Infection, dehydration, metabolic abnormality, hypo/hyperglycemia, electrolyte disturbance, anemia, hypoxia, cardiac sources, intracerebral event, toxicologic, neurologic, as well as other pathologies. ER treatment provided: See below Diagnostics interpreted by me: ECG: none Cardiac Monitoring: An order was placed for continuous cardiac monitoring. The monitor shows a rate of 84 with sinus rhythm. Laboratory studies: As stated above and show below. Imaging studies: KUB with stents Consultation(s): Discussed with Dr. Raymond Asher for further evaluation ED COURSE: Procedures: none Critical Care: None Past Med/Surg History Medical History (Updated 06/18/20 @ 00:38 by Wesley Rausch DO) Anemia Bone infection Chronic pain CKD (chronic kidney disease) stage 3, GFR 30-59 ml/min Depression with anxiety Diabetes mellitus type 2 in obese Dyslipidemia H/O: CVA (cerebrovascular accident) Headache History of recurrent UTI (urinary tract infection) Incontinence Lesion of bladder Leukocytosis Microscopic hematuria Morbid obesity Osteomyelitis UTI (urinary tract infection) Surgical History History of cataract surgery S/P cholecystectomy Family History Mother , age 79 of esophageal cancer Hypertension Father , in mid 60s of an [place] Myocardial infarction Social History Smoking Status: Former smoker Tobacco Type: Cigarettes Age Quit Using Tobacco: 48; Second Hand Exposure: No; Hx Alcohol Use: No Hx Substance Use: No Preferred Language: Luxembourgish Communication Ability: Impaired Visual Impairment: No Limitations Private Banker Required: No Beliefs That Will Affect Care: None marital status: Current Living Situation: Snf Current Living Situation Comment: [facility] current occupational status: retired Feels Safe at Home: Yes Assistive Devices: Glasses Allergies Allergies Allergy/AdvReac Type Severity Reaction Status Date / Time Penicillins Allergy Unknown . Verified 06/17/20 23:40 pregabalin Allergy Unknown . Verified 06/17/20 23:40 tramadol Allergy Unknown . Verified 06/17/20 23:40 cefazolin [From Ancef] Allergy Unknown Verified 06/17/20 23:40 ertapenem AdvReac Intermediate Confusion,H Verified 06/17/20 23:40 allucinatio ns Home Meds Home Medications Medication Instructions Recorded Confirmed acetaminophen [Tylenol] 650 mg PO Q6 PRN MDD 3gm 05/23/18 06/17/20 aspirin 81 mg PO QAM 05/23/18 06/17/20 buspirone 10 mg PO QAM 05/23/18 06/17/20 dicyclomine 10 mg PO Q6H PRN 05/23/18 06/17/20 meloxicam 15 mg PO QAM 05/23/18 06/17/20 simvastatin 20 mg PO HS 05/23/18 06/17/20 D-Mannose 500mg Capsule 1,000 mg PO BID 09/25/19 06/17/20 cholecalciferol (vitamin D3) 5,000 unit PO QAM 09/25/19 06/17/20 [Vitamin D3] escitalopram oxalate 10 mg PO QAM 05/16/20 06/17/20 B-complex with vitamin C [Vitamin 1 tab PO QAM 06/17/20 06/17/20 B Complex-C] acetaminophen 650 mg PO Q6 PRN MDD 3gm 06/17/20 06/17/20 alogliptin 25 mg PO QAM 06/17/20 06/17/20 baclofen 10 mg PO Q8 PRN 06/17/20 06/17/20 multivitamin, stress formula 1 tab PO DAILY 06/17/20 06/17/20 [Stress Formula] Previous Rx's Medication Instructions Recorded ferrous gluconate 324 mg PO QAM #30 tab 05/12/20 famotidine 20 mg PO BID #60 tab 05/22/20 fentanyl 1 patch TRANSDERMAL Q72H #1 ea 05/22/20 sennosides-docusate sodium 1 tab PO HS PRN #0 tab 05/22/20 [Senokot-S] Results & Data (ED) Vital Signs Vital Signs - 24 hr 06/17/20 21:58 06/18/20 00:01 Temperature 36.9 C Temperature Source Oral Pulse Rate 88 Pulse Rate [Apical] 79 Respiratory Rate 18 20 Blood Pressure 146/73 H Blood Pressure [Right Arm] 133/80 Blood Pressure Mean 97 Blood Pressure Mean [Right Arm] 97 Pulse Oximetry 97 Oxygen Delivery Method Room Air Sepsis Recent Fever Within 48 Hours No Sepsis New/Unexplained Change in Mental Status N/A Sepsis Action Taken by Nursing No Action Required Laboratory Data Result diagrams: 06/17/20 Unknown 06/17/20 Unknown Lab Results 06/17/20 06/17/20 06/17/20 Range/Units 22:45 Unknown Unknown WBC 10.24 (4.8-10.8) K/uL RBC 3.50 L (4.2-5.4) M/uL Hgb 9.6 L (12.0-16.0) g/dL Hct 30.7 L (37-47) % MCV 87.7 (80-100) fL MCH 27.4 (25-34) pg MCHC 31.3 L (32-36) g/dL RDW Std Deviation 71.3 H (36.4-46.3) fL RDW Coeff of Katina 22.2 H (11.5-14.5) % Plt Count 430 H (130-400) K/uL MPV 8.4 (7.4-10.4) fL Immature Gran % (Auto) 0.3 % Neut % (Auto) 67.2 % Lymph % (Auto) 22.4 % [place] % (Auto) 4.4 % Eos % (Auto) 5.1 % Baso % (Auto) 0.6 % Neut # (Auto) 6.89 H (1.4-6.5) K/uL Lymph # (Auto) 2.29 (1.2-3.4) K/uL [place] # (Auto) 0.45 (0.11-0.59) K/uL Eos # (Auto) 0.52 H (0-0.5) K/uL Baso # (Auto) 0.06 (0-0.2) K/uL Immature Gran # (Auto) 0.03 H (0.00-0.02) K/uL Polychromasia 1+ Anisocytosis Present Sodium 137 (136-145) mmol/L Potassium 4.9 (3.5-5.1) mmol/L Chloride 105 (98-107) mmol/L Carbon Dioxide 24 (21-32) mmol/L Anion Gap 8.0 (3-11) BUN 49 H (7-18) mg/dl Creatinine 4.43 H D (0.6-1.2) mg/dl Est Cr Clr Drug Dosing 17.9 ml/min Est GFR ( Amer) 11.5 Est GFR (Non-Af Amer) 9.9 BUN/Creatinine Ratio 11.1 (10-20) Glucose 129 H (70-99) mg/dl Calcium 8.8 (8.5-10.1) mg/dl Total Bilirubin 0.2 (0.2-1) mg/dl AST 27 (15-37) U/L ALT 24 (12-78) U/L Alkaline Phosphatase 117 (45-117) U/L Total Protein 7.9 (6.4-8.2) gm/dl Albumin 2.1 L (3.4-5.0) gm/dl Globulin 5.8 H (2.5-4.0) gm/dl Albumin/Globulin Ratio 0.4 L (0.9-2) Urine Color Yellow Urine Appearance Turbid A (Clear) Urine pH 7.0 (4.5-7.5) Ur Specific [place] 1.009 (1.000-1.030) Urine Protein 1+ H (Negative) Urine Glucose (UA) Negative (Negative) Urine Ketones Negative (Negative) Urine Blood 3+ H (Negative) Urine Nitrite Positive A (Negative) Urine Bilirubin Negative (Negative) Urine Urobilinogen Negative (Negative) Ur Leukocyte Esterase 3+ H (Negative) Urine WBC (Auto) >30 H (0-5) /hpf Urine RBC (Auto) >30 H (0-4) /hpf U Hyaline Cast (Auto) 0 (0-5) /lpf U Epithel Cells (Auto) >30 H (0-5) /lpf Urine Bacteria (Auto) 1+ H (Negative) SARS-CoV-2 Ag (Rapid) (Negative) 06/17/20 Range/Units Unknown WBC (4.8-10.8) K/uL RBC (4.2-5.4) M/uL Hgb (12.0-16.0) g/dL Hct (37-47) % MCV (80-100) fL MCH (25-34) pg MCHC (32-36) g/dL RDW Std Deviation (36.4-46.3) fL RDW Coeff of Katina (11.5-14.5) % Plt Count (130-400) K/uL MPV (7.4-10.4) fL Immature Gran % (Auto) % Neut % (Auto) % Lymph % (Auto) % [place] % (Auto) % Eos % (Auto) % Baso % (Auto) % Neut # (Auto) (1.4-6.5) K/uL Lymph # (Auto) (1.2-3.4) K/uL [place] # (Auto) (0.11-0.59) K/uL Eos # (Auto) (0-0.5) K/uL Baso # (Auto) (0-0.2) K/uL Immature Gran # (Auto) (0.00-0.02) K/uL Polychromasia Anisocytosis Sodium (136-145) mmol/L Potassium (3.5-5.1) mmol/L Chloride (98-107) mmol/L Carbon Dioxide (21-32) mmol/L Anion Gap (3-11) BUN (7-18) mg/dl Creatinine (0.6-1.2) mg/dl Est Cr Clr Drug Dosing ml/min Est GFR ( Amer) Est GFR (Non-Af Amer) BUN/Creatinine Ratio (10-20) Glucose (70-99) mg/dl Calcium (8.5-10.1) mg/dl Total Bilirubin (0.2-1) mg/dl AST (15-37) U/L ALT (12-78) U/L Alkaline Phosphatase (45-117) U/L Total Protein (6.4-8.2) gm/dl Albumin (3.4-5.0) gm/dl Globulin (2.5-4.0) gm/dl Albumin/Globulin Ratio (0.9-2) Urine Color Urine Appearance (Clear) Urine pH (4.5-7.5) Ur Specific [place] (1.000-1.030) Urine Protein (Negative) Urine Glucose (UA) (Negative) Urine Ketones (Negative) Urine Blood (Negative) Urine Nitrite (Negative) Urine Bilirubin (Negative) Urine Urobilinogen (Negative) Ur Leukocyte Esterase (Negative) Urine WBC (Auto) (0-5) /hpf Urine RBC (Auto) (0-4) /hpf U Hyaline Cast (Auto) (0-5) /lpf U Epithel Cells (Auto) (0-5) /lpf Urine Bacteria (Auto) (Negative) SARS-CoV-2 Ag (Rapid) Negative (Negative) Administered Medications Discontinued Medications Sodium Chloride (Nss 1000ml) 1,000 mls @ 999 mls/hr IV .[id number] ONE Stop: 06/17/20 23:51 Last Admin: 06/17/20 23:35 Dose: 999 mls/hr Documented by: [id number] Discharge Plan Visit Data Chief Complaint: Abnormal Labs/Diagnostic Testing Stated Complaint: ABNORMAL LAB, RENAL FAILURE ED Provider: Wesley Rausch Discharge Problem: SOLEDAD (acute kidney injury), Weakness, Anemia Forms Stand Alone Forms: Vascular Imaging [facility] Prescriptions Prescriptions: No Action ferrous gluconate 324 mg (38 mg iron) Tablet 324 mg PO QAM Qty: 30 RF: 0 escitalopram oxalate 10 mg tablet 10 mg PO QAM RF: 0 famotidine 20 mg Tablet 20 mg PO BID Qty: 60 RF: 0 sennosides-docusate sodium [Senokot-S] 8.6-50 mg Tablet 1 tab PO HS PRN (Reason: Constipation) Qty: 0 RF: 0 fentanyl 12 mcg/hr Patch 72 Hour 1 patch TRANSDERMAL Q72H Qty: 1 RF: 0 alogliptin 25 mg Tablet 25 mg PO QAM RF: 0 Stress Formula Tablet 1 tab PO DAILY RF: 0 B-complex with vitamin C [Vitamin B Complex-C] Tablet 1 tab PO QAM RF: 0 baclofen 10 mg tablet 10 mg PO Q8 PRN (Reason: Muscle spasm) RF: 0 acetaminophen 325 mg Tablet 650 mg PO Q6 MDD 3gm PRN (Reason: pain 1-5) RF: 0 acetaminophen [Tylenol] 325 mg Tablet 650 mg PO Q6 MDD 3gm PRN (Reason: temp>101) RF: 0 meloxicam 15 mg Tablet 15 mg PO QAM RF: 0 simvastatin 20 mg Tablet 20 mg PO HS RF: 0 buspirone 10 mg Tablet 10 mg PO QAM RF: 0 aspirin 81 mg Tablet,Chewable 81 mg PO QAM RF: 0 dicyclomine 10 mg Capsule 10 mg PO Q6H PRN (Reason: abdominal cramping) RF: 0 cholecalciferol (vitamin D3) [Vitamin D3] 125 mcg (5,000 unit) Tablet 5,000 unit PO QAM RF: 0 D-Mannose 500mg Capsule 1,000 mg PO BID RF: 0 Discharge Problem: Anemia Qualifiers: Anemia type: unspecified type Qualified Code(s): D64.9 - Anemia, unspecified
[2020-06-17 23:10] LABS: Bacteria Urine Automated 1+ (Negative); Cast Urine Automated 0 /lpf (0-5)
--- NOTE | 2020-06-17 23:50 | History & Physical Report ---
Date of Service June 17, 2020 Assessment & Plan (1) CKD (chronic kidney disease) stage 3, GFR 30-59 ml/min: Patient is a 65-year-old female with a past medical history of ESBL/MRSA urinary tract infections with a past medical history of ureteral stent placement, ARF/SOLEDAD, recent infection with Covid, depression anxiety, dyslipidemia, diabetes type 2, anemia, chronic back pain, history of a CVA, who presents at the insistence of her outpatient provider for an elevated creatinine. Her baseline creatinine was 2 with a recent increase to 4. #Acute on chronic kidney injury in the setting of stage III chronic kidney disease Patient with longstanding history of chronic kidney disease followed as an outpatient. Patient obtain lab results today demonstrating a creatinine increased from 2 to 4 and was advised to present to the emergency department further evaluation. She has had a similar presentation in the past where she was determined to have a UTI, requiring some fluid hydration antibiotics, and urology consult, her condition improved promptly at that point. Given her UA findings, will provide imipenem, will provide fluid hydration, will avoid nephrotoxic medications, will consult urology, will provide supportive care. Lactated Ringer's at 175 -Imipenem renally dosed -Avoid nephrotoxic medicines -holding mannose -holding statins -hold famotidine -Consult urology -Trend daily BMP #History of recurrent UTI positive for ESBL/MRSA in the past Patient with a similar presentation in the past when she had a UTI and subsequently treated improved. She does have a history of ESBL/MRSA positive UTIs. Given her urinalysis this evening despite the fact that she has been asymptomatic we will initiate treatment for this. Will use and imipenem given her history. -Imipenem -Trend CBC -Adequate hydration -Supportive care as indicated #Diabetes type 2 Patient with longstanding history of diabetes type 2, glycemic consult has been placed -Glycemic consult #Chronic pain -Continue home baclofen -Continue fentanyl patch #Anxiety depression -Continue home buspirone -Continue escitalopram #Hyperlipidemia -Continue home simvastatin #Constipation -Continue docusate -Daily MiraLAX #Morbid obesity -Encourage weight loss FENa: Heart healthy type II diabetic diet, lactated Ringer's at 175 Code Status: Full code DVT PPX: Heparin PT/OT: Ordered Dispo: Kimberly Chambers MD PGY 2, [facility] This chart was completed utilizing [employer] voice recognition software. Grammatical errors, random word insertions, pronoun errors, and in complete sentences are an occasional consequence of the system. Any questions or concerns about the content, text, or information contained within the body of this dictation should be addressed directly to the physician for clarification. (2) Okfww-on-ksatcab kidney injury: (3) History of recurrent UTI (urinary tract infection): (4) Diabetes mellitus type 2 in obese: (5) Depression with anxiety: (6) UTI (urinary tract infection): (7) Morbid obesity: History of Present Illness Patient is a 65-year-old female with a past medical history of ESBL/MRSA urinary tract infections with a past medical history of ureteral stent placement, ARF/SOLEDAD, recent infection with Covid, depression anxiety, dyslipidemia, diabetes type 2, anemia, chronic back pain, history of a CVA, who presents at the insistence of her outpatient provider for an elevated creatinine. Her baseline creatinine was 2 with a recent increase to 4. After interviewing the patient she stated she was in her usual state of health, there is been no significant changes to her diet or activity level, she is not experiencing symptoms typical of UTI. She denies all constitutional symptoms including fever, chills, cough, congestion, new or worsening back pain, or any other concerning signs or features, she reports making urine. She has had similar previous episodes where she is required IV hydration antibiotics and unwell.In the emergency department labs were obtained CBC was within normal limits, Chem-7 was notable for a creatinine of 4.43, the remainder electrolytes were within normal values, glucose was a bit high at 129, albumin was 2.1. A UA was obtained demonstrating turbid urine, positive for nitrates, blood, leuk esterase and epithelial cells. Given her acute rising creatinine suspicious urinary findings and and history of MRSA/ESBL UTI, the patient will be admitted for further treatment and evaluation Primary Care Provider: [facility] Allergies Allergy/AdvReac Type Severity Reaction Status Date / Time Penicillins Allergy Unknown . Verified 06/17/20 23:40 pregabalin Allergy Unknown . Verified 06/17/20 23:40 tramadol Allergy Unknown . Verified 06/17/20 23:40 cefazolin [From Ancef] Allergy Unknown Verified 06/17/20 23:40 ertapenem AdvReac Intermediate Confusion,H Verified 06/17/20 23:40 allucinatio ns Home Medications Medication Instructions Recorded Confirmed Type acetaminophen [Tylenol] 650 mg PO Q6 PRN MDD 3gm 05/23/18 06/17/20 History aspirin 81 mg PO QAM 05/23/18 06/17/20 History buspirone 10 mg PO QAM 05/23/18 06/17/20 History dicyclomine 10 mg PO Q6H PRN 05/23/18 06/17/20 History meloxicam 15 mg PO QAM 05/23/18 06/17/20 History simvastatin 20 mg PO HS 05/23/18 06/17/20 History D-Mannose 500mg Capsule 1,000 mg PO BID 09/25/19 06/17/20 History cholecalciferol (vitamin D3) 5,000 unit PO QAM 09/25/19 06/17/20 History [Vitamin D3] ferrous gluconate 324 mg PO QAM #30 tab 05/12/20 06/17/20 Rx escitalopram oxalate 10 mg PO QAM 05/16/20 06/17/20 History famotidine 20 mg PO BID #60 tab 05/22/20 06/17/20 Rx fentanyl 1 patch TRANSDERMAL Q72H #1 ea 05/22/20 06/17/20 Rx sennosides-docusate sodium 1 tab PO HS PRN #0 tab 05/22/20 06/17/20 Rx [Senokot-S] B-complex with vitamin C [Vitamin 1 tab PO QAM 06/17/20 06/17/20 History B Complex-C] acetaminophen 650 mg PO Q6 PRN MDD 3gm 06/17/20 06/17/20 History alogliptin 25 mg PO QAM 06/17/20 06/17/20 History baclofen 10 mg PO Q8 PRN 06/17/20 06/17/20 History multivitamin, stress formula 1 tab PO DAILY 06/17/20 06/17/20 History [Stress Formula] Past Med/Surg History Medical History Anemia Bone infection Chronic pain CKD (chronic kidney disease) stage 3, GFR 30-59 ml/min Depression with anxiety Diabetes mellitus type 2 in obese Dyslipidemia H/O: CVA (cerebrovascular accident) Headache History of recurrent UTI (urinary tract infection) Incontinence Lesion of bladder Leukocytosis Microscopic hematuria Morbid obesity Osteomyelitis UTI (urinary tract infection) Surgical History History of cataract surgery S/P cholecystectomy Family History Mother , age 79 of esophageal cancer Hypertension Father , in mid 60s of an [place] Myocardial infarction Social History Smoking Status: Former smoker Tobacco Type: Cigarettes Age Quit Using Tobacco: 48; Second Hand Exposure: No; Do You Dip or Chew Tobacco: No; Hx Alcohol Use: No Hx Substance Use: No Preferred Language: Vietnamese Communication Ability: Effective Visual Impairment: No Limitations Disposition Clerk Required: No Beliefs That Will Affect Care: None marital status: Current Living Situation: [facility] Current Living Situation Comment: [place] current occupational status: retired Other Information That Helps Us Care for You: No Feels Safe at Home: Yes Safety Concerns: Feels Safe At This Time Assistive Devices: Glasses, Mechanical Lift and Wheelchair Review of Systems Review of Systems: All systems reviewed & are unremarkable except as noted in HPI & below Physical Exam Physical Exam: General: In no acute distress HEENT: Normocephalic atraumatic Neck: Normal to visual inspection Cardiac: Regular rate and rhythm, I did not appreciate any significant murmurs rubs or gallops, normal S1, normal S2, pedal edema, negative calf tenderness Respiratory: Clear to auscultation bilaterally without significant wheezes, rales, rhonchi, symmetrical chest expansion bilaterally GI: Soft, nontender, nondistended, bowel sounds present MSK: Moves all extremities Skin: No bruising on her flanks Neuro: Alert and oriented x4 although a bit confused to time, unclear if this is baseline Psych: Calm and cooperative Results & Data Results & Data ([facility]) Vital Signs (Past 12 Hours) Vital Signs Temp Pulse Resp BP Pulse Ox 06/17/20 21:58 36.9 C 88 18 146/73 H 97 Laboratory Results 06/17/20 06/17/20 06/17/20 Range/Units Unknown Unknown Unknown WBC 10.24 (4.8-10.8) K/uL RBC 3.50 L (4.2-5.4) M/uL Hgb 9.6 L (12.0-16.0) g/dL Hct 30.7 L (37-47) % MCV 87.7 (80-100) fL MCH 27.4 (25-34) pg MCHC 31.3 L (32-36) g/dL RDW Std Deviation 71.3 H (36.4-46.3) fL RDW Coeff of Katina 22.2 H (11.5-14.5) % Plt Count 430 H (130-400) K/uL MPV 8.4 (7.4-10.4) fL Immature Gran % (Auto) 0.3 % Neut % (Auto) 67.2 % Lymph % (Auto) 22.4 % [place] % (Auto) 4.4 % Eos % (Auto) 5.1 % Baso % (Auto) 0.6 % Neut # (Auto) 6.89 H (1.4-6.5) K/uL Lymph # (Auto) 2.29 (1.2-3.4) K/uL [place] # (Auto) 0.45 (0.11-0.59) K/uL Eos # (Auto) 0.52 H (0-0.5) K/uL Baso # (Auto) 0.06 (0-0.2) K/uL Immature Gran # (Auto) 0.03 H (0.00-0.02) K/uL Polychromasia 1+ Anisocytosis Present Sodium 137 (136-145) mmol/L Potassium 4.9 (3.5-5.1) mmol/L Chloride 105 (98-107) mmol/L Carbon Dioxide 24 (21-32) mmol/L Anion Gap 8.0 (3-11) BUN 49 H (7-18) mg/dl Creatinine 4.43 H D (0.6-1.2) mg/dl Est Cr Clr Drug Dosing 17.9 ml/min Est GFR ( Amer) 11.5 Est GFR (Non-Af Amer) 9.9 BUN/Creatinine Ratio 11.1 (10-20) Glucose 129 H (70-99) mg/dl Calcium 8.8 (8.5-10.1) mg/dl Total Bilirubin 0.2 (0.2-1) mg/dl AST 27 (15-37) U/L ALT 24 (12-78) U/L Alkaline Phosphatase 117 (45-117) U/L Total Protein 7.9 (6.4-8.2) gm/dl Albumin 2.1 L (3.4-5.0) gm/dl Globulin 5.8 H (2.5-4.0) gm/dl Albumin/Globulin Ratio 0.4 L (0.9-2) Urine Color Urine Appearance (Clear) Urine pH (4.5-7.5) Ur Specific [place] (1.000-1.030) Urine Protein (Negative) Urine Glucose (UA) (Negative) Urine Ketones (Negative) Urine Blood (Negative) Urine Nitrite (Negative) Urine Bilirubin (Negative) Urine Urobilinogen (Negative) Ur Leukocyte Esterase (Negative) Urine WBC (Auto) (0-5) /hpf Urine RBC (Auto) (0-4) /hpf U Hyaline Cast (Auto) (0-5) /lpf U Epithel Cells (Auto) (0-5) /lpf Urine Bacteria (Auto) (Negative) SARS-CoV-2 Ag (Rapid) Negative (Negative) 06/17/20 Range/Units 22:45 WBC (4.8-10.8) K/uL RBC (4.2-5.4) M/uL Hgb (12.0-16.0) g/dL Hct (37-47) % MCV (80-100) fL MCH (25-34) pg MCHC (32-36) g/dL RDW Std Deviation (36.4-46.3) fL RDW Coeff of Katina (11.5-14.5) % Plt Count (130-400) K/uL MPV (7.4-10.4) fL Immature Gran % (Auto) % Neut % (Auto) % Lymph % (Auto) % [place] % (Auto) % Eos % (Auto) % Baso % (Auto) % Neut # (Auto) (1.4-6.5) K/uL Lymph # (Auto) (1.2-3.4) K/uL [place] # (Auto) (0.11-0.59) K/uL Eos # (Auto) (0-0.5) K/uL Baso # (Auto) (0-0.2) K/uL Immature Gran # (Auto) (0.00-0.02) K/uL Polychromasia Anisocytosis Sodium (136-145) mmol/L Potassium (3.5-5.1) mmol/L Chloride (98-107) mmol/L Carbon Dioxide (21-32) mmol/L Anion Gap (3-11) BUN (7-18) mg/dl Creatinine (0.6-1.2) mg/dl Est Cr Clr Drug Dosing ml/min Est GFR ( Amer) Est GFR (Non-Af Amer) BUN/Creatinine Ratio (10-20) Glucose (70-99) mg/dl Calcium (8.5-10.1) mg/dl Total Bilirubin (0.2-1) mg/dl AST (15-37) U/L ALT (12-78) U/L Alkaline Phosphatase (45-117) U/L Total Protein (6.4-8.2) gm/dl Albumin (3.4-5.0) gm/dl Globulin (2.5-4.0) gm/dl Albumin/Globulin Ratio (0.9-2) Urine Color Yellow Urine Appearance Turbid A (Clear) Urine pH 7.0 (4.5-7.5) Ur Specific [place] 1.009 (1.000-1.030) Urine Protein 1+ H (Negative) Urine Glucose (UA) Negative (Negative) Urine Ketones Negative (Negative) Urine Blood 3+ H (Negative) Urine Nitrite Positive A (Negative) Urine Bilirubin Negative (Negative) Urine Urobilinogen Negative (Negative) Ur Leukocyte Esterase 3+ H (Negative) Urine WBC (Auto) >30 H (0-5) /hpf Urine RBC (Auto) >30 H (0-4) /hpf U Hyaline Cast (Auto) 0 (0-5) /lpf U Epithel Cells (Auto) >30 H (0-5) /lpf Urine Bacteria (Auto) 1+ H (Negative) SARS-CoV-2 Ag (Rapid) (Negative) Code Status & VTE Plan Code Status full VTE Prophylaxis Plan VTE Prophylaxis will be ordered: Yes Supervising Physician Co-Signing Physician Notes Attending addendum: I have physically seen this patient, have supervised the medical residents activities, and agree with the H&P unless as otherwise noted. Assessment and Plan: Recurrent UTI/history of ESBL/MRSA- Vancomycin IV and imipenem IV empirically Follow urine culture sensitivity Acute kidney injury on chronic kidney disease- Associated with UTI LR at 125 mils per hour Repeat laboratories in a.m. Remaining orders and notations as noted Resident Activity Tracking Resident Involvement: Resident Care Provided Care Provided: Adult [facility] Medicine
[2020-06-18] MEDS ORDERED: ACETAMINOPHEN 325 MG TAB PO PRN ×2 (02:05)
[2020-06-18] MEDS ORDERED: DOCUSATE SODIUM/SENNA 50/8.6MG TAB PO PRN (02:05)
[2020-06-18] MEDS ORDERED: ONDANSETRON INJ 2 MG/ML 2 ML VIAL IV PRN (02:05)
[2020-06-18] MEDS ORDERED: MEROPENEM CONSULT ACITVE PRN (02:05)
[2020-06-18] MEDS: LACTATED RINGER'S 1,000 ML IV SCH ×3 (02:43→16:08)
[2020-06-18] MEDS: MEROPENEM 500 MG in SYRINGE 0 ML IV SCH ×2 (03:58→14:38)
[2020-06-18] MEDS ORDERED: PHARMACY GLYCEMIC MGMT CONSULT PRN (04:06)
[2020-06-18] MEDS: ACETAMINOPHEN 325 MG TAB PO PRN (04:08)
[2020-06-18] MEDS ORDERED: GLUCAGON FOR INJ 1 MG VIAL IM PRN (04:30)
[2020-06-18] MEDS ORDERED: GLUCOSE 10 TABS/TUBE PO PRN (04:30)
[2020-06-18] MEDS ORDERED: GLUCOSE 40% GEL 15 GM TUBE PO PRN (04:30)
[2020-06-18] MEDS ORDERED: CARBOHYDRATES FOR HYPOGLYCEMIA PO PRN (04:30)
[2020-06-18] MEDS ORDERED: DEXTROSE 50% 50 ML SYRINGE IV PRN (04:30)
[2020-06-18] MEDS: HEPARIN SOD 5,000 UNIT/0.5 ML VIAL SQ SCH ×3 (06:03→21:24)
--- NOTE | 2020-06-18 08:08 | XRay Report ---
KUB HISTORY: Bilateral ureteral stents COMPARISON: Abdomen and pelvis CT 05/17/2020. FINDINGS: No renal calculi. No ureteral calculi. No pneumoperitoneum or pneumatosis. 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 This re jer unchanged. Bilateral ureteral stents appear unchanged in position. Moderate well-formed stool w ithin the colon. Rotated study. A few borderline dilated gas-filled loops of large and small bowel. F indings favor an ileus. IMPRESSION: 1. No renal or ureteral calculi. 2. Bilateral ureteral stents appear unchanged in position. 3. A few borderline dilated gas-filled loops of large and small bowel. This favors a mild ileus. ACT 112: Negative or not required by law. Electronically signed by: Mak Monteiro M.D. 06/18/2020 8:07 AM
[2020-06-18] MEDS: INSULIN ASPART 100 UNITS/ML 3 ML PEN SC SCH ×4 (08:53→21:41)
[2020-06-18] MEDS: CHECK fentaNYL PATCH PLACEMENT SCH ×2 (08:54→16:08)
[2020-06-18] MEDS: FERROUS GLUCONATE 324 MG TAB PO SCH (08:55)
[2020-06-18] MEDS: ESCITALOPRAM OXALATE 10 MG TAB PO SCH (08:55)
[2020-06-18] MEDS: ASPIRIN 81 MG ECTAB PO SCH (08:55)
[2020-06-18] MEDS: BACLOFEN 10 MG TAB PO PRN (08:55)
[2020-06-18] MEDS: MULTIVITAMIN TAB PO SCH (08:55)
[2020-06-18] MEDS: VITAMIN B COMPLEX TAB PO SCH (08:55)
[2020-06-18] MEDS: DICYCLOMINE HCL 10 MG CAP PO PRN (08:56)
[2020-06-18] MEDS: CHOLECALCIFEROL 1,000 UNITS 25 MCG TAB PO SCH (08:56)
[2020-06-18] MEDS: busPIRone 5 MG TAB PO SCH (08:56)
[2020-06-18] MEDS: POLYETHYLENE (MIRALAX) 17 GM PACK PO SCH (09:01)
--- NOTE | 2020-06-18 09:12 | Urology Consultation ---
Date of Consultation June 18, 2020 Assessment & Plan (1) Mawap-ji-qwtqkwf kidney injury: (2) UTI (urinary tract infection): (3) Weakness: 65 year-old female patient, with multiple comorbidities, admitted secondary to acute on chronic kidney injury, weakness, and presumed UTI. -Patient afebrile. -Labs reviewed, creatinine remains elevated although improving since admission. -Urinalysis indicative of infection, urine culture pending. -Prior CT from May admission reviewed, bilateral stents in place without hydronephrosis, and perinephric stranding consistent with infection. -No acute intervention indicated at this time. -Continue supportive care and broad spectrum antibiotic therapy, follow cultures. -Recommend repeating CT abd/pelvis if creatinine increases, if she does not clinically improve, or with any acute changes in status. -Outpatient follow-up visit arranged with urology service to discuss stent management. -Will continue to follow while inpatient. History of Present Illness Reason for Consultation: Increasing creatinine, history of b/l stent Attending Physician: Heather Hough MD History of Present Illness 65-year-old female patient with a past medical history of ESBL/MRSA urinary tract infections, history of ureteral stent placement (April 2020), ARF/SOLEDAD, recent infection with Covid (06/10), depression anxiety, dyslipidemia, diabetes type 2, anemia, chronic back pain, history of a CVA, who presents at the insistence of her outpatient provider for an elevated creatinine. Her baseline creatinine was 2 with a recent increase to 4 with most recent labs. Urology consulted for increasing creatinine with history of bilateral stents. Patient known to [facility] Urology service. Past medical and surgical history reviewed. Patient was admitted 04/27-05/12 with UTI, bilateral hydronephrosis, and acute encephalopathy. During that admission she underwent cystoscopy, bilateral retrograde pyelograms and stent placement on 05/[address] Toney. She was treated with IV antibiotic therapy in addition to Amphotericin B bladder instillations. Patient was then readmitted 05/17-05/22 secondary to Proteus UTI, sepsis, SOLEDAD, and COVID-19 Chart review: Afebrile Labs 06/17 reviewed - Wbc 10.24 Hgb 9.6 Creatinine from 06/18 3.77 (previously 4.43). Creatinine was 4.81 on admission. Urinalysis on admission +3 blood, nitrate positive, +3 leukocytes, >30 wbc, >30 rbc, +1 bacteria. Urine culture 06/10 E.Coli ESBL Admission urine culture pending. Currently on IV Meropenem. Imaging - Most recent CT abd/pelvis without contrast from 05/17/20 IMPRESSION: 1. Satisfactory positioning of the bilateral ureteral stents with resolution of previously noted hydronephrosis. There is however mildly progressed bilateral left greater than right perinephric with perivesicular stranding. Correlate with urinalysis. 2. No renal or ureteral calculi. 3. No bowel obstruction or bowel wall thickening. 4. Mild colonic diverticulosis without acute diverticulitis. 5. Cholecystectomy. KUB 06/18/20 IMPRESSION: 1. No renal or ureteral calculi. 2. Bilateral ureteral stents appear unchanged in position. 3. A few borderline dilated gas-filled loops of large and small bowel. This favors a mild ileus. Patient examined at bedside. She is awake and alert this morning. Reports she is feeling "fine". Offers no complaints this morning. Denies abdominal or flank pain. Eating breakfast, without nausea or vomiting. Denies hematuria. Does note before engel catheter was placed in ER, she did have urinary frequency/urgency and dysuria. Tolerating engel catheter. Denies fevers or chills. Overall, symptoms have improved since hospital admission. Denies additional urologic concerns today. Allergies Allergy/AdvReac Type Severity Reaction Status Date / Time Penicillins Allergy Unknown . Verified 06/17/20 23:40 pregabalin Allergy Unknown . Verified 06/17/20 23:40 tramadol Allergy Unknown . Verified 06/17/20 23:40 cefazolin [From Anc] Allergy Unknown Verified 06/17/20 23:40 ertapenem AdvReac Intermediate Confusion,H Verified 06/17/20 23:40 allucinatio ns Home Medications Medication Instructions Recorded Confirmed Type acetaminophen [Tylenol] 650 mg PO Q6 PRN MDD 3gm 05/23/18 06/17/20 History aspirin 81 mg PO QAM 05/23/18 06/17/20 History buspirone 10 mg PO QAM 05/23/18 06/17/20 History dicyclomine 10 mg PO Q6H PRN 05/23/18 06/17/20 History meloxicam 15 mg PO QAM 05/23/18 06/17/20 History simvastatin 20 mg PO HS 05/23/18 06/17/20 History D-Mannose 500mg Capsule 1,000 mg PO BID 09/25/19 06/17/20 History cholecalciferol (vitamin D3) 5,000 unit PO QAM 09/25/19 06/17/20 History [Vitamin D3] ferrous gluconate 324 mg PO QAM #30 tab 05/12/20 06/17/20 Rx escitalopram oxalate 10 mg PO QAM 05/16/20 06/17/20 History famotidine 20 mg PO BID #60 tab 05/22/20 06/17/20 Rx fentanyl 1 patch TRANSDERMAL Q72H #1 ea 05/22/20 06/17/20 Rx sennosides-docusate sodium 1 tab PO HS PRN #0 tab 05/22/20 06/17/20 Rx [Senokot-S] B-complex with vitamin C [Vitamin 1 tab PO QAM 06/17/20 06/17/20 History B Complex-C] acetaminophen 650 mg PO Q6 PRN MDD 3gm 06/17/20 06/17/20 History alogliptin 25 mg PO QAM 06/17/20 06/17/20 History baclofen 10 mg PO Q8 PRN 06/17/20 06/17/20 History multivitamin, stress formula 1 tab PO DAILY 06/17/20 06/17/20 History [Stress Formula] Patient History Medical History Anemia Bone infection Chronic pain CKD (chronic kidney disease) stage 3, GFR 30-59 ml/min Depression with anxiety Diabetes mellitus type 2 in obese Dyslipidemia H/O: CVA (cerebrovascular accident) Headache History of recurrent UTI (urinary tract infection) Incontinence Lesion of bladder Leukocytosis Microscopic hematuria Morbid obesity Osteomyelitis UTI (urinary tract infection) Surgical History History of cataract surgery S/P cholecystectomy Family History Mother , age 79 of esophageal cancer Hypertension Father , in mid 60s of an [place] Myocardial infarction Social History Smoking Status: Former smoker Tobacco Type: Cigarettes Age Quit Using Tobacco: 48; Second Hand Exposure: No; Do You Dip or Chew Tobacco: No; Hx Alcohol Use: No Hx Substance Use: No Preferred Language: Romansh Communication Ability: Effective Visual Impairment: No Limitations Continuous Absorption Process Operator Required: No Beliefs That Will Affect Care: None marital status: Current Living Situation: [facility] Current Living Situation Comment: [place] current occupational status: retired Other Information That Helps Us Care for You: No Feels Safe at Home: Yes Safety Concerns: Feels Safe At This Time Assistive Devices: Glasses, Mechanical Lift and Wheelchair Review of Systems Constitutional: as per Subjective / HPI; no fever and no chills Eyes: no problem reported Ear, Nose, Mouth, Throat: no dizziness Respiratory: no cough and no dyspnea Cardiovascular: no chest pain and no edema Gastrointestinal: as per Subjective / HPI Genitourinary: as per Subjective / HPI Musculoskeletal: as per Subjective / HPI Neurologic: no dizziness Endocrine: no fatigue Hematologic / Lymphatic: no easy bleeding and no easy bruising Physical Exam Constitutional: well developed and well nourished; no acute distress and not ill appearing ENMT: Ears: no external ear abnormality Neck: normal visual inspection and trachea midline Respiratory: normal respiratory effort and able to speak in complete sentences; no respiratory distress and no audible wheezes Cardiovascular: Extremities: + edema (Trace pitting edema to bilateral lower extremities); no calf tenderness Gastrointestinal (Abdomen): Inspection/Auscultation: abdomen normal to inspection; abdomen not distended Percussion/Palpation: abdomen soft; abdomen nontender and no guarding Obese abdomen Musculoskeletal: Moves all extremities without difficulty. Skin: No visible rashes, lesions, or wounds noted. Neurologic: moves all extremities and awake Psychiatric: Orientation: alert, oriented x 3 and cooperative Affect: euthymic affect Genitourinary: no CVA tenderness Engel catheter intact draining cloudy ye llow urine. Results & Data ([facility]) Vital Signs (Past 12 Hours) Vital Signs Temp Pulse Pulse Pulse Resp BP BP 06/18/20 07:36 36.5 C 84 16 111/72 06/18/20 01:30 36.6 C 85 18 144/71 H 06/18/20 01:07 78 20 129/59 L 06/18/20 00:01 79 20 133/80 12/02/20 21:58 36.9 C 88 18 146/73 H Pulse Ox 06/18/20 07:36 92 06/18/20 01:30 95 06/18/20 01:07 06/18/20 00:01 06/17/20 21:58 97 PG Care Time/CCT Total # of Minutes Spent Total Time Spent with Patient: Total time spent is greater than 50% in coordination of care (as documented) at patient's floor/unit and/or counseling patient: Coding Level of Care Code 74166 Initial Inpt Care Lvl 2 Diagnoses [id number] kidney injury N17.9; N18.9 UTI (urinary tract infection) N39.0 Weakness R53.1
[2020-06-18 11:18] LABS: BUN Creatinine Ratio 11.3 (10-20); Calcium 8.3 mg/dl (8.5-10.1); Creatinine Clr Calc Pharmacy 20.7 ml/min; Potassium 4.5 mmol/L (3.5-5.1)
--- NOTE | 2020-06-18 12:16 | History & Physical Bridge Note ---
Date of Service June 18, 2020 History & Physical Bridge Note I have examined the patient, reviewed the History & Physical and in the interval since the performance of the History & Physical I have noted the following changes of clinical significance: Pt feels tired but didn't get much sleep. I know her well from previous admissions. She is mentating well. Denies any CP or SOB, no abd pain. Is passing flatus and moving bowels regularly prior to admission. Says she's here for "abnormal tests." VSS NAD, obese,AAOx3 RRR no mgr CTAB no wcr Abd +BS soft NT ND obese [place] in place draining clear yellow urine Ext atrophy of muscles in legs, left shoulder atrophy SKin no rashes Continue current treatment Discussed care with Urology to see if they want a repeat CT abd/pel to further assess for ureteral stent placement and hydro Plant Engineer improving with IVF hydration
--- NOTE | 2020-06-18 12:58 | Electrocardiogram Report ---
Test Reason : Blood Pressure : / mmHG Vent. Rate : 086 BPM Atrial Rate : 086 BPM P-R Int : 162 ms QRS Dur : 084 ms QT Int : 370 ms P-R-T Axes : 055 046 064 degrees QTc Int : 442 ms Normal sinus rhythm Low voltage QRS Borderline ECG When compared with ECG of 16-MAY-2020 23:38, Vent. rate has decreased BY 46 BPM Nonspecific T wave abnormality no longer evident in Lateral leads Confirmed by Dank Hagen ([id number]) on 06/18/2020 12:58:19 PM Referred By: REFERRED SELF Confirmed By:Raj Hagen
--- NOTE | 2020-06-18 14:26 | Pharmacy Report ---
Glycemic Control Consultation - Date of Service June 18, 2020 - Scope Scope: Glycemic Pharmacist consulted for glycemic control and to write orders per [facility] inpatient glycemic control protocol. - Objective Weight: 129 kg Accuchecks BSG (last 24hrs): 06/17/20 06/18/20 06/18/20 Unknown 02:18 07:38 Glucose 129 H POC Glucose 123 H 121 H 06/18/20 06/18/20 10:25 11:31 Glucose 143 H POC Glucose 191 H Laboratory Data (last 24hrs): 06/17/20 06/18/20 Unknown 10:25 Potassium 4.9 4.5 Carbon Dioxide 24 25 Anion Gap 8.0 4.0 Creatinine 4.43 H D 3.77 H D Est Cr Clr Drug Dosing 17.9 20.7 - Recent Pertinent Medications Outpatient Anti-diabetic Regimen: * Alogliptin * A1c = 8.3 % on 04/28/20 Risk Factors for Insulin Resistance: * Infection: UTI * Diet: T2DM - Assessment & Plan Assessment & Plan: ASSESSMENT: * 65 yo F with T2DM on one oral agent as outpatient admitted 06/17 to 06/18 overnight for SOLEDAD on CKD * Minimal stressors noted. AM fasting BSG in goal range - no basal insulin needed * Started with Novolog ACHS at weight-based moderate stress estimate this AM. Tightened CHO ratio at dinner 2nd lunch BSG >180 mg/dL PLAN FOR INPATIENT GLYCEMIC CONTROL: * Holding outpatient oral diabetes medications * Basal insulin - none at this time * Bolus insulin * NovoLog per scale ACHS or Q6hrs while NPO * Goal Range: Low 110 mg/dL - High 140 mg/dL * Correction Factor: 25 mg/dL/unit * Nutritional / Prandial insulin per carb ratio of 1 unit per 8 grams CHO consumed * Please note that the plan above was derived based on current level of insulin resistance and hospital stress. These recommendations are appropriate for inpatient admission only. Plan of care upon discharge will need to be reassessed to avoid potential outpatient hypo/hyperglycemia. Thank you.
[2020-06-19] MEDS: CHECK fentaNYL PATCH PLACEMENT SCH ×4 (01:09→21:55)
[2020-06-19] MEDS: LACTATED RINGER'S 1,000 ML IV SCH (01:10)
[2020-06-19] MEDS: MEROPENEM 500 MG in SYRINGE 0 ML IV SCH ×2 (01:10→15:58)
--- NOTE | 2020-06-19 03:09 | Billing Data ---
Date of Service June 19, 2020 Coding Level of Care Code 84721 Initial Inpt Care Lvl 3
[2020-06-19] MEDS: HEPARIN SOD 5,000 UNIT/0.5 ML VIAL SQ SCH ×3 (05:50→21:45)
[2020-06-19 06:09] LABS: Basophils # (auto) 0.05 K/uL (0-0.2); Basophils % (auto) 0.5 %; Eosinophils # (auto) 0.54 K/uL (0-0.5); Eosinophils % (auto) 5.3 %; Hematocrit (blood only) 27.7 % (37-47); Hemoglobin 8.7 g/dL (12.0-16.0); Immature Granulocytes # (auto) 0.02 K/uL (0.00-0.02); Immature Granulocytes % (auto) 0.2 %; Lymphocytes # (auto) 1.95 K/uL (1.2-3.4); Lymphocytes % (auto) 19.2 %; Mean Corpuscular Hemoglobin 27.7 pg (25-34); Mean Corpuscular Hgb Conc 31.4 g/dL (32-36); Mean Corpuscular Volume 88.2 fL (80-100); Mean Platelet Volume 8.4 fL (7.4-10.4); Monocytes # (auto) 0.49 K/uL (0.11-0.59); Monocytes % (auto) 4.8 %; Neutrophils # (auto) 7.09 K/uL (1.4-6.5); Platelet Count 436 K/uL (130-400); RDW Coefficient of Variation 22.3 % (11.5-14.5); Red Blood Count 3.14 M/uL (4.2-5.4); White Blood Count 10.14 K/uL (4.8-10.8)
[2020-06-19 06:37] LABS: BUN Creatinine Ratio 11.2 (10-20); Calcium 8.6 mg/dl (8.5-10.1); Creatinine Clr Calc Pharmacy 19.9 ml/min; Est GFR (African American) 13.3; Est GFR (Non-African American) 11.5
[2020-06-19 06:42] LABS: Anisocytosis Present
--- NOTE | 2020-06-19 08:29 | Urology Progress Note ---
Date of Service June 19, 2020 Assessment & Plan (1) Ciizd-yq-zelphbr kidney injury: (2) UTI (urinary tract infection): (3) Weakness: 65 year-old female patient, with multiple comorbidities, admitted secondary to acute on chronic kidney injury, weakness, and UTI. -Patient remains afebrile. -Labs reviewed - white count normal, creatinine increased from yesterday. -Preliminary urine culture with gram negative bacilli. -Continue supportive care and broad spectrum antibiotic therapy per primary team, follow cultures. -No acute intervention required at this time. -Continue to monitor creatinine. -Will continue to follow while inpatient. Admission and Anticipated Discharge Date Admission Date: June 18, 2020 Subjective Patient examined at bedside. She is comfortable in appearance. Denies abdominal/flank pain. Tolerating catheter without discomfort. Fallon draining cloudy yellow urine. Denies fevers or chills. Denies nausea or vomiting. She is frustrated that people continue to wake her from sleeping. Chart review: Afebrile. Wbc 10.14 Hgb 9.7 Creatinine 3.92 (previously 3.77) - 4.81 on admission. Preliminary urine culture gram negative bacilli. Currently on IV Meropenem. Denies additional urologic concerns today. Review of Systems Constitutional: as per Subjective / HPI; no fever and no chills Gastrointestinal: as per Subjective / HPI; no nausea and no vomiting Genitourinary: as per Subjective / HPI Physical Exam Constitutional: well nourished, cooperative and comfortable; no acute distress Respiratory: normal respiratory effort and able to speak in complete sente nces; no respiratory distress and no audible wheezes Gastrointestinal (Abdomen): Inspection/Auscultation: abdomen normal to inspection; abdomen not distended Percussion/Palpation: abdomen soft; abdomen nontender and no guarding Psychiatric: Orientation: alert, oriented x 3 and cooperative Affect: + flat affect Genitourinary: no CVA tenderness Fallon catheter draining cloudy yellow urine. No gross hematuria. Results & Data ([facility]) Vital Signs (Past 12 Hours) Vital Signs Temp Pulse Resp BP Pulse Ox 06/19/20 08:03 36.4 C L 79 16 134/83 96 06/18/20 23:23 36.4 C L 81 18 130/79 96 PG Care Time/CCT Total # of Minutes Spent Total Time Spent with Patient: Total time spent is greater than 50% in coordination of care (as documented) at patient's floor/unit and/or counseling patient: Coding Level of Care Code 64295 Subseq Hosp Care Lvl 2 Diagnoses Ywzuo-xq-csoeick kidney injury N17.9; N18.9 UTI (urinary tract infection) N39.0 Weakness R53.1
[2020-06-19] MEDS: INSULIN ASPART 100 UNITS/ML 3 ML PEN SC SCH ×4 (08:49→23:20)
[2020-06-19] MEDS: ASPIRIN 81 MG ECTAB PO SCH (08:51)
[2020-06-19] MEDS: busPIRone 5 MG TAB PO SCH (08:51)
[2020-06-19] MEDS: VITAMIN B COMPLEX TAB PO SCH (08:52)
[2020-06-19] MEDS: FERROUS GLUCONATE 324 MG TAB PO SCH (08:52)
[2020-06-19] MEDS: ESCITALOPRAM OXALATE 10 MG TAB PO SCH (08:52)
[2020-06-19] MEDS: MULTIVITAMIN TAB PO SCH (08:53)
[2020-06-19] MEDS: CHOLECALCIFEROL 1,000 UNITS 25 MCG TAB PO SCH (08:53)
[2020-06-19] MEDS: POLYETHYLENE (MIRALAX) 17 GM PACK PO SCH (08:53)
--- NOTE | 2020-06-19 11:16 | Hospitalist Progress Note ---
Date of Service June 19, 2020 Assessment & Plan (1) Elawp-kq-azbjbav kidney injury: Patient is a 65-year-old female who resides at a care home due to severe OA/ambulatory dysfunction and morbd obesity, with a past medical history of ESBL/MRSA urinary tract infections s/p bilateral ureteral stent placement, ARF/SOLEDAD, recent infection with Covid, depression anxiety, dyslipidemia, diabetes type 2, anemia, chronic back pain, history of a CVA, who presents w/ SOLEDAD. Her baseline creatinine was 2 with a recent increase to 4. Acute on chronic kidney injury in the setting of stage III chronic kidney disease Patient with longstanding history of chronic kidney disease followed as an outpatient. Director Corporate [employer] 4 prior to admission, improved somewhat to 3.7 yesterday, now back up slightly to 3.9 Fortunately is making tons of urine today, so hopefully ATN is improving K+ mildly elevated at 5.0, no acidosis -change IVFs to NS at 80mL/hr for 24 more hours -follow BMP in AM -Avoid nephrotoxic medicines -holding mannose -holding statin -hold famotidine -Consult urology appreciated--> checking CT abd/pel to make sure ureteral stents in correct position since Director Corporate Communications rising follow UOP Pt unsure if would want dialysis and is frustrated with recurrent hospitalizations--> consult Palliative Care -treating UTI -Fallon remains in place -give one dose patiromer for mild hyperkalemia, change to low K+ diet (2) CKD (chronic kidney disease) stage 3, GFR 30-59 ml/min: as above, baseline patient ombudsperson was 0.8 in 02/2020, then has new baseline of 1.8-2.0 since 04/2020 With SOLEDAD as above -Avoid nephrotoxins -renally dose meds when appropriate -follow BMP (3) UTI (urinary tract infection): With a h/o recurrent UTI positive for ESBL/MRSA in the past continue meropenem Ur cx with GNR-f/u ID and sensitivity (4) Diabetes mellitus type 2 in obese: APpreciate glycemic management-they are signing off, well controlled continue Novolog SSI prn (5) Depression with anxiety: worsening mood, declines further intervention/titration of meds -continue Lexapro, Buspar (6) History of recurrent UTI (urinary tract infection): as above (7) Morbid obesity: BMI 47.3 needs weight loss (8) Dyslipidemia: holding statin for SOLEDAD (9) Anemia: hgb slightly lower than baseline 9-10 due to hemodilution hgb 8.7, no gross bleeding normocytic likely anemia of chronic renal disease check iron levels in AM continue ferrous sulfate (10) Chronic pain: back and hips, bedbound at [place] continue fentanyl patch, baclofen (11) H/O: CVA (cerebrovascular accident): continue ASA, holding statin (12) DVT prophylaxis: heparin SQ Dispo-continued stay, eventually back to [facility] Palliative consult requested for goals of care discussion Called daughter Kymberly and left voicemail Admission and Anticipated Discharge Date Admission Date: June 18, 2020 Subjective Pt very irritated today with being woken up all hours of the night. States "I wish my kidneys would just fail and then I could be done with all of this!" She does want antibiotics for UTI, but is unsure if she would want dialysis if renal function continued to worsen. States "that's aggressive." She denies pain anywhere, denies SOB. When asked if she is depressed, she becomes tearful. When asked if she thinks she would be better off , she doesn't respond. I offered to increase her medication for depression and she was adamant that "those medications don't work, they just make it worse!" She admits to being frustrated with recurrent hospitalizations and just wants to get out of the hospital so "people stop messing with me." Review of Systems Review of Systems: All systems reviewed & are unremarkable except as noted in HPI & below Physical Exam Constitutional: WD/WN, vitals as above + morbidly obese Eyes: + anicteric sclerae Neck: trachea midline, no thyromegaly Respiratory: normal respiratory effort, lungs clear to auscultation Cardiovascular: RRR, no murmur, no edema Chest (Breasts): Chest: normal inspection of chest Gastrointestinal (Abdomen): normal bowel sounds, soft, nontender, no hepatosplenomegaly Musculoskeletal: Extremities: extremities normal to inspection; no cyanosis and no clubbing Skin: no rashes, warm and dry Neurologic: moves all extremities and awake; no focal motor deficits Psychiatric: Orientation: alert and oriented x 3 Eye Contact: + fair eye contact Speech: normal rate/rhythm/volume of speech Affect: + depressed affect Mood: + depressed mood Genitourinary: + abnormal external appearance (Fallon in place draianing copious clear yellow urine) Lymphatic: no lymphedema Results & Data Results & Data ([facility]) Vital Signs (Past 12 Hours) Vital Signs Temp Pulse Resp BP Pulse Ox 06/19/20 08:03 36.4 C L 79 16 134/83 96 06/18/20 23:23 36.4 C L 81 18 130/79 96 Laboratory Results 06/19/20 06/19/20 06/19/20 Range/Units 08:01 05:42 05:42 WBC 10.14 (4.8-10.8) K/uL RBC 3.14 L (4.2-5.4) M/uL Hgb 8.7 L (12.0-16.0) g/dL Hct 27.7 L (37-47) % MCV 88.2 (80-100) fL MCH 27.7 (25-34) pg MCHC 31.4 L (32-36) g/dL RDW Std Deviation 72.0 H (36.4-46.3) fL RDW Coeff of Katina 22.3 H (11.5-14.5) % Plt Count 436 H (130-400) K/uL MPV 8.4 (7.4-10.4) fL Immature Gran % (Auto) 0.2 % Neut % (Auto) 70.0 % Lymph % (Auto) 19.2 % [place] % (Auto) 4.8 % Eos % (Auto) 5.3 % Baso % (Auto) 0.5 % Neut # (Auto) 7.09 H (1.4-6.5) K/uL Lymph # (Auto) 1.95 (1.2-3.4) K/uL [place] # (Auto) 0.49 (0.11-0.59) K/uL Eos # (Auto) 0.54 H (0-0.5) K/uL Baso # (Auto) 0.05 (0-0.2) K/uL Immature Gran # (Auto) 0.02 (0.00-0.02) K/uL Anisocytosis Present Sodium 139 (136-145) mmol/L Potassium 5.0 (3.5-5.1) mmol/L Chloride 109 H (98-107) mmol/L Carbon Dioxide 24 (21-32) mmol/L Anion Gap 6.0 (3-11) BUN 44 H (7-18) mg/dl Creatinine 3.92 H (0.6-1.2) mg/dl Est Cr Clr Drug Dosing 19.9 ml/min Est GFR ( Amer) 13.3 Est GFR (Non-Af Amer) 11.5 BUN/Creatinine Ratio 11.2 (10-20) Glucose 120 H (70-99) mg/dl POC Glucose 117 H (70-99) mg/dl Calcium 8.6 (8.5-10.1) mg/dl 06/18/20 06/18/20 06/18/20 Range/Units 21:20 20:43 17:02 WBC (4.8-10.8) K/uL RBC (4.2-5.4) M/uL Hgb (12.0-16.0) g/dL Hct (37-47) % MCV (80-100) fL MCH (25-34) pg MCHC (32-36) g/dL RDW Std Deviation (36.4-46.3) fL RDW Coeff of Katina (11.5-14.5) % Plt Count (130-400) K/uL MPV (7.4-10.4) fL Immature Gran % (Auto) % Neut % (Auto) % Lymph % (Auto) % [place] % (Auto) % Eos % (Auto) % Baso % (Auto) % Neut # (Auto) (1.4-6.5) K/uL Lymph # (Auto) (1.2-3.4) K/uL [place] # (Auto) (0.11-0.59) K/uL Eos # (Auto) (0-0.5) K/uL Baso # (Auto) (0-0.2) K/uL Immature Gran # (Auto) (0.00-0.02) K/uL Anisocytosis Sodium (136-145) mmol/L Potassium (3.5-5.1) mmol/L Chloride (98-107) mmol/L Carbon Dioxide (21-32) mmol/L Anion Gap (3-11) BUN (7-18) mg/dl Creatinine (0.6-1.2) mg/dl Est Cr Clr Drug Dosing ml/min Est GFR ( Amer) Est GFR (Non-Af Amer) BUN/Creatinine Ratio (10-20) Glucose (70-99) mg/dl POC Glucose 128 H 165 H 145 H (70-99) mg/dl Calcium (8.5-10.1) mg/dl PG Care Time/CCT Total # of Minutes Spent Total Time Spent with Patient: Total time spent is greater than 50% in coordination of care (as documented) at patient's floor/unit and/or counseling patient: Coding Level of Care Code 49660 Subseq Hosp Care Lvl 3 Diagnoses Bcnpq-oi-qucfpwq kidney injury N17.9; N18.9 CKD (chronic kidney disease) stage 3, GFR 30-59 ml/min N18.30 UTI (urinary tract infection) N39.0 Diabetes mellitus type 2 in obese E11.69; E66.9 Depression with anxiety F41.8 History of recurrent UTI (urinary tract infection) Z87.440 Morbid obesity E66.01 Dyslipidemia E78.5 Anemia D64.9 Anemia type: unspecified type Chronic pain G89.29 H/O: CVA (cerebrovascular accident) Z86.73 DVT prophylaxis Z29.9 (1) Anemia Anemia type: unspecified type Qualified Code(s): D64.9 - Anemia, unspecified
[2020-06-19] MEDS: SODIUM CHLORIDE 0.9% 1000ML 1,000 ML IV SCH ×2 (11:37→21:48)
[2020-06-19] MEDS ORDERED: PATIROMER CALCIUM SORBITEX 8.4 GM PACK PO ONE (12:00)
--- NOTE | 2020-06-19 12:29 | CT Scan Report ---
CT SCAN OF THE ABDOMEN AND PELVIS WITHOUT CONTRAST CLINICAL HISTORY: renal failure,bilat ureteral stents COMPARISON STUDY: 05/17/2020 TECHNIQUE: CT scan of the abdomen and pelvis was performed from the lung bases to the proximal femurs . Images are reviewed in the axial, sagittal, and coronal planes. IV contrast was not administered fo r this examination. A dose lowering technique was utilized adhering to the principles of ALARA. CT DOSE: 1938.78 mGy.cm FINDINGS: Lower chest: There are subpleural reticular opacities within the right lower lobe, likely atelectatic . There are coronary artery calcifications. There is no pericardial effusion. There was elevation rig ht hemidiaphragm Liver: There are capsular calcifications posteriorly. No focal hepatic masses are visualized in this noncontrast study Gallbladder: Surgically absent Spleen: Top normal in size Pancreas: Unremarkable. Adrenal glands: There is an 11 mm left adrenal adenoma Kidneys: There is no significant hydronephrosis. There are bilateral double pigtail nephroureteral st ents present. No renal calculi are visualized. There are no calculi along the course of either stent. There is diminished perinephric stranding Bowel: There are no transition zones to indicate bowel obstruction. There is no evidence of acute div erticulitis. There is no evidence of acute appendicitis. Peritoneum: There is no intraperitoneal free air or abdominal ascites. Vasculature: The abdominal aorta is normal in course and caliber. Adenopathy: None. Pelvic viscera: There is an indwelling Fallon catheter. Skeletal structures: There are chronic bilateral hip deformities with advanced osteoarthritis. IMPRESSION: 1. No evidence of bowel obstruction. No evidence of free air 2. No renal, ureteral, or bladder calculi identified 3. No evidence of acute diverticulitis. No evidence of acute appendicitis 4. Bilateral nephroureteral stents. 5. Diminished perinephric stranding. ACT 112: Negative or not required by law. Electronically signed by: Denton Cerda M.D. 06/19/2020 12:28 PM
--- NOTE | 2020-06-19 15:37 | Pharmacy Report ---
Pharmacy Glycemic Sign Off Nt - Date of Service June 19, 2020 - Assessment & Plan ASSESSMENT: Pharmacy consulted for glycemic management. Patient is on alogliptin monotherapy at home, with OK HbA1c of 8.3%. As inpatient, BSG's have ranged 120-191 mg/dL over the last 24 hours, and last four BSG's have been <180 mg/dL after CHO ratio was very slightly tightened yesterday. No basal has been administered, and AM fasting BSG was in goal range. Discussed w Dr. France HORAN for pharmacy to sign off at this time PLAN FOR INPATIENT GLYCEMIC CONTROL: No changes needed to current regimen. * No basal insulin * Continue NovoLog per scale ACHS/Q6hrs while NPO * Goal range = 110-140 mg/dl * CF = 25 mg/dl/unit * CR = 1 unit for ever 8 g CHO consumed Pharmacy is signing off of glycemic consult and will no longer be making adjustments to inpatient regimen. Please feel free to re-consult if needed. Thank you.
[2020-06-19] MEDS: ACETAMINOPHEN 325 MG TAB PO PRN (19:26)
[2020-06-20 03:55] LABS: Basophils # (auto) 0.07 K/uL (0-0.2); Basophils % (auto) 0.7 %; Eosinophils % (auto) 6.2 %; Hematocrit (blood only) 26.7 % (37-47); Hemoglobin 8.3 g/dL (12.0-16.0); Immature Granulocytes # (auto) 0.04 K/uL (0.00-0.02); Immature Granulocytes % (auto) 0.4 %; Lymphocytes # (auto) 2.69 K/uL (1.2-3.4); Lymphocytes % (auto) 27.6 %; Mean Corpuscular Hemoglobin 27.6 pg (25-34); Mean Corpuscular Hgb Conc 31.1 g/dL (32-36); Mean Corpuscular Volume 88.7 fL (80-100); Mean Platelet Volume 8.6 fL (7.4-10.4); Monocytes # (auto) 0.52 K/uL (0.11-0.59); Monocytes % (auto) 5.3 %; Neutrophils # (auto) 5.82 K/uL (1.4-6.5); Neutrophils % (auto) 59.8 %; Platelet Count 415 K/uL (130-400); RDW Coefficient of Variation 22.4 % (11.5-14.5); RDW Standard Deviation 72.4 fL (36.4-46.3); Red Blood Count 3.01 M/uL (4.2-5.4); White Blood Count 9.74 K/uL (4.8-10.8)
[2020-06-20 04:13] LABS: BUN Creatinine Ratio 12.7 (10-20); Calcium 8.4 mg/dl (8.5-10.1); Creatinine Clr Calc Pharmacy 21.7 ml/min; Est GFR (African American) 14.8; Est GFR (Non-African American) 12.7; Potassium 4.9 mmol/L (3.5-5.1)
[2020-06-20 04:19] LABS: Ferritin 108.2 ng/ml (8-388)
[2020-06-20 04:29] LABS: Anisocytosis Present
[2020-06-20 04:42] LABS: Folate (Folic Acid) 14.5 ng/ml (>5.38)
[2020-06-20] MEDS: BACLOFEN 10 MG TAB PO PRN (14:05)
[2020-06-20] MEDS: CHECK fentaNYL PATCH PLACEMENT SCH ×2 (16:15→20:41)
[2020-06-20] MEDS: INSULIN ASPART 100 UNITS/ML 3 ML PEN SC SCH ×4 (19:06→22:55)
[2020-06-20] MEDS: MEROPENEM 500 MG in SYRINGE 0 ML IV SCH ×2 (20:39→20:40)
[2020-06-20] MEDS: fentaNYL 12 MCG/HR TDSY TD SCH (20:41)
[2020-06-20] MEDS: VITAMIN B COMPLEX TAB PO SCH (20:42)
[2020-06-20] MEDS: POLYETHYLENE (MIRALAX) 17 GM PACK PO SCH (20:43)
[2020-06-20] MEDS: ASPIRIN 81 MG ECTAB PO SCH (20:43)
[2020-06-20] MEDS: MULTIVITAMIN TAB PO SCH (20:43)
[2020-06-20] MEDS: busPIRone 5 MG TAB PO SCH (20:44)
[2020-06-20] MEDS: CHOLECALCIFEROL 1,000 UNITS 25 MCG TAB PO SCH (20:44)
[2020-06-20] MEDS: FERROUS GLUCONATE 324 MG TAB PO SCH (20:44)
[2020-06-20] MEDS: ESCITALOPRAM OXALATE 10 MG TAB PO SCH (20:44)
[2020-06-20] MEDS: HEPARIN SOD 5,000 UNIT/0.5 ML VIAL SQ SCH ×2 (20:45→22:35)
[2020-06-21] MEDS: CHECK fentaNYL PATCH PLACEMENT SCH ×4 (00:52→23:34)
[2020-06-21] MEDS: MEROPENEM 500 MG in SYRINGE 0 ML IV SCH ×2 (04:33→16:00)
[2020-06-21] MEDS: HEPARIN SOD 5,000 UNIT/0.5 ML VIAL SQ SCH ×3 (05:50→20:47)
[2020-06-21] MEDS: INSULIN ASPART 100 UNITS/ML 3 ML PEN SC SCH ×4 (09:51→21:43)
[2020-06-21] MEDS: ACETAMINOPHEN 325 MG TAB PO PRN (09:53)
[2020-06-21] MEDS: VITAMIN B COMPLEX TAB PO SCH (09:54)
[2020-06-21] MEDS: MULTIVITAMIN TAB PO SCH (09:54)
[2020-06-21] MEDS: ASPIRIN 81 MG ECTAB PO SCH (09:55)
[2020-06-21] MEDS: ESCITALOPRAM OXALATE 10 MG TAB PO SCH (09:55)
[2020-06-21] MEDS: busPIRone 5 MG TAB PO SCH (09:55)
[2020-06-21] MEDS: FERROUS GLUCONATE 324 MG TAB PO SCH (09:55)
[2020-06-21] MEDS: POLYETHYLENE (MIRALAX) 17 GM PACK PO SCH (09:56)
[2020-06-21] MEDS: CHOLECALCIFEROL 1,000 UNITS 25 MCG TAB PO SCH (09:56)
[2020-06-21 11:09] LABS: Basophils # (auto) 0.04 K/uL (0-0.2); Basophils % (auto) 0.4 %; Eosinophils # (auto) 0.41 K/uL (0-0.5); Eosinophils % (auto) 4.4 %; Hematocrit (blood only) 27.8 % (37-47); Hemoglobin 8.7 g/dL (12.0-16.0); Immature Granulocytes # (auto) 0.01 K/uL (0.00-0.02); Immature Granulocytes % (auto) 0.1 %; Lymphocytes # (auto) 1.68 K/uL (1.2-3.4); Lymphocytes % (auto) 18.1 %; Mean Corpuscular Hemoglobin 28.1 pg (25-34); Mean Corpuscular Hgb Conc 31.3 g/dL (32-36); Mean Corpuscular Volume 89.7 fL (80-100); Mean Platelet Volume 8.6 fL (7.4-10.4); Monocytes % (auto) 3.2 %; Neutrophils # (auto) 6.84 K/uL (1.4-6.5); Neutrophils % (auto) 73.8 %; Platelet Count 395 K/uL (130-400); RDW Coefficient of Variation 22.6 % (11.5-14.5); RDW Standard Deviation 73.5 fL (36.4-46.3); White Blood Count 9.28 K/uL (4.8-10.8)
[2020-06-21 11:25] LABS: BUN Creatinine Ratio 14.7 (10-20); Calcium 8.7 mg/dl (8.5-10.1); Creatinine Clr Calc Pharmacy 24.6 ml/min; Est GFR (African American) 17.2; Est GFR (Non-African American) 14.9; Potassium 4.5 mmol/L (3.5-5.1)
[2020-06-21 11:31] LABS: Anisocytosis Present; Rouleaux 1+
--- NOTE | 2020-06-21 15:01 | Hospitalist Progress Note ---
Date of Service June 21, 2020 Assessment & Plan (1) Vdufs-yd-hjpueyi kidney injury: Patient is a 65-year-old female who resides at a residential due to severe OA/ambulatory dysfunction and morbd obesity, with a past medical history of ESBL/MRSA urinary tract infections s/p bilateral ureteral stent placement, ARF/SOLEDAD, recent infection with Covid, depression anxiety, dyslipidemia, diabetes type 2, anemia, chronic back pain, history of a CVA, who presents w/ SOLEDAD. Her baseline creatinine was 2 with a recent increase to 4. Acute on chronic kidney injury in the setting of stage III chronic kidney disease Patient with longstanding history of chronic kidney disease followed as an outpatient. Combustion Engineer 4 prior to admission,finally improving down to 3.1 Making plenty of urine--> post-ATN diuresis K+ was elevated, given patirmoer x 1, now normal -Consult urology appreciated--> checked CT abd/pel to make sure ureteral stents in correct position since Combustion Engineer rising--> negative -have since dcd IVFs-she is dinah po -treating UTI -Fallon remains in place-consider keeping in place on dc however puts her at risk for UTI -avoid nephrotoxins (2) CKD (chronic kidney disease) stage 3, GFR 30-59 ml/min: as above, baseline sanitation associate was 0.8 in 02/2020, then has new baseline of 1.8-2.0 since 04/2020 With SOLEDAD as above -Avoid nephrotoxins -renally dose meds when appropriate -follow BMP (3) UTI (urinary tract infection): With a h/o recurrent UTI positive for ESBL/MRSA in the past Likely has some degree of urinary retention and bedbound status/hygiene issues contributing to recurrent UTIs Ur cx here with ESBL E. coli again continue meropenem x 7-10 day course Plan to return to [facility] on IV abx -will see if can get US-guided IV for discharge (4) Diabetes mellitus type 2 in obese: well controlled continue Novolog SSI prn (5) Depression with anxiety: worsening mood due to recurrent hospitalizations, declines further intervention/titration of meds -continue Lexapro, Buspar (6) History of recurrent UTI (urinary tract infection): as above (7) Morbid obesity: BMI 47.3 needs weight loss (8) Dyslipidemia: continue statin (9) Anemia: hgb slightly lower than baseline 9-10 due to hemodilution hgb 8.7, stable from previous, no gross bleeding normocytic Fe studies, B12,folate nomral -this is anemia of chronic renal disease continue ferrous sulfate (10) Chronic pain: back and hips, bedbound at [place] continue fentanyl patch, baclofen (11) H/O: CVA (cerebrovascular accident): continue ASA, statin (12) DVT prophylaxis: heparin SQ Dispo-continued stay, back to [facility] once renal fxn continues to improve, will need IV Meropenem, US-guided IV Palliative consult requested for goals of care discussion in setting of recurrent hospitalizations and worsening renal function but pt absolutely refuses to talk to Palliative so this was cancelled Called daughter Kymberly with update on 06/20 Admission and Anticipated Discharge Date Admission Date: June 18, 2020 Subjective Pt irritated and states she has had a headache since she woke up. Denies CP or SOB, no abd pain Is making plenty of urine. Is doing a puzzle on her ipad and only makes eye contact when she asks if her ice chips are coming that she asked for. Review of Systems Review of Systems: All systems reviewed & are unremarkable except as noted in HPI & below Physical Exam Constitutional: WD/WN, vitals as above + morbidly obese Eyes: + anicteric sclerae Neck: trachea midline, no thyromegaly Respiratory: normal respiratory effort, lungs clear to auscultation Cardiovascular: RRR, no murmur, no edema Chest (Breasts): Chest: normal inspection of chest Gastrointestinal (Abdomen): normal bowel sounds, soft, nontender, no hepatosplenomegaly Musculoskeletal: Extremities: extremities normal to inspection; no cyanosis and no clubbing Skin: no rashes, warm and dry Neurologic: moves all extremities and awake; no focal motor deficits Psychiatric: Orientation: alert and oriented x 3 Eye Contact: + fair eye contact Speech: normal rate/rhythm/volume of speech Genitourinary: + abnormal external appearance (Fallon in place draianing copious clear yellow urine) Lymphatic: no lymphedema Results & Data Results & Data ([facility]) Vital Signs (Past 12 Hours) Vital Signs Temp Pulse Resp BP Pulse Ox 06/21/20 08:31 36.6 C 76 18 107/73 91 Laboratory Results 12/06/20 12/06/20 12/06/20 Range/Units 12:10 10:46 10:46 WBC 9.28 (4.8-10.8) K/uL RBC 3.10 L (4.2-5.4) M/uL Hgb 8.7 L (12.0-16.0) g/dL Hct 27.8 L (37-47) % MCV 89.7 (80-100) fL MCH 28.1 (25-34) pg MCHC 31.3 L (32-36) g/dL RDW Std Deviation 73.5 H (36.4-46.3) fL RDW Coeff of Katina 22.6 H (11.5-14.5) % Plt Count 395 (130-400) K/uL MPV 8.6 (7.4-10.4) fL Immature Gran % (Auto) 0.1 % Neut % (Auto) 73.8 % Lymph % (Auto) 18.1 % [place] % (Auto) 3.2 % Eos % (Auto) 4.4 % Baso % (Auto) 0.4 % Neut # (Auto) 6.84 H (1.4-6.5) K/uL Lymph # (Auto) 1.68 (1.2-3.4) K/uL [place] # (Auto) 0.30 (0.11-0.59) K/uL Eos # (Auto) 0.41 (0-0.5) K/uL Baso # (Auto) 0.04 (0-0.2) K/uL Immature Gran # (Auto) 0.01 (0.00-0.02) K/uL Anisocytosis Present Rouleaux 1+ Sodium 140 (136-145) mmol/L Potassium 4.5 (3.5-5.1) mmol/L Chloride 110 H (98-107) mmol/L Carbon Dioxide 24 (21-32) mmol/L Anion Gap 6.0 (3-11) BUN 47 H (7-18) mg/dl Creatinine 3.17 H D (0.6-1.2) mg/dl Est Cr Clr Drug Dosing 24.6 ml/min Est GFR ( Amer) 17.2 Est GFR (Non-Af Amer) 14.9 BUN/Creatinine Ratio 14.7 (10-20) Glucose 165 H (70-99) mg/dl POC Glucose 155 H (70-99) mg/dl Calcium 8.7 (8.5-10.1) mg/dl 06/21/20 06/20/20 06/20/20 Range/Units 08:27 21:07 17:11 WBC (4.8-10.8) K/uL RBC (4.2-5.4) M/uL Hgb (12.0-16.0) g/dL Hct (37-47) % MCV (80-100) fL MCH (25-34) pg MCHC (32-36) g/dL RDW Std Deviation (36.4-46.3) fL RDW Coeff of Katina (11.5-14.5) % Plt Count (130-400) K/uL MPV (7.4-10.4) fL Immature Gran % (Auto) % Neut % (Auto) % Lymph % (Auto) % [place] % (Auto) % Eos % (Auto) % Baso % (Auto) % Neut # (Auto) (1.4-6.5) K/uL Lymph # (Auto) (1.2-3.4) K/uL [place] # (Auto) (0.11-0.59) K/uL Eos # (Auto) (0-0.5) K/uL Baso # (Auto) (0-0.2) K/uL Immature Gran # (Auto) (0.00-0.02) K/uL Anisocytosis Rouleaux Sodium (136-145) mmol/L Potassium (3.5-5.1) mmol/L Chloride (98-107) mmol/L Carbon Dioxide (21-32) mmol/L Anion Gap (3-11) BUN (7-18) mg/dl Creatinine (0.6-1.2) mg/dl Est Cr Clr Drug Dosing ml/min Est GFR ( Amer) Est GFR (Non-Af Amer) BUN/Creatinine Ratio (10-20) Glucose (70-99) mg/dl POC Glucose 129 H 129 H 101 H (70-99) mg/dl Calcium (8.5-10.1) mg/dl 06/20/20 06/20/20 Range/Units 12:29 08:15 WBC (4.8-10.8) K/uL RBC (4.2-5.4) M/uL Hgb (12.0-16.0) g/dL Hct (37-47) % MCV (80-100) fL MCH (25-34) pg MCHC (32-36) g/dL RDW Std Deviation (36.4-46.3) fL RDW Coeff of Katina (11.5-14.5) % Plt Count (130-400) K/uL MPV (7.4-10.4) fL Immature Gran % (Auto) % Neut % (Auto) % Lymph % (Auto) % [place] % (Auto) % Eos % (Auto) % Baso % (Auto) % Neut # (Auto) (1.4-6.5) K/uL Lymph # (Auto) (1.2-3.4) K/uL [place] # (Auto) (0.11-0.59) K/uL Eos # (Auto) (0-0.5) K/uL Baso # (Auto) (0-0.2) K/uL Immature Gran # (Auto) (0.00-0.02) K/uL Anisocytosis Rouleaux Sodium (136-145) mmol/L Potassium (3.5-5.1) mmol/L Chloride (98-107) mmol/L Carbon Dioxide (21-32) mmol/L Anion Gap (3-11) BUN (7-18) mg/dl Creatinine (0.6-1.2) mg/dl Est Cr Clr Drug Dosing ml/min Est GFR ( Amer) Est GFR (Non-Af Amer) BUN/Creatinine Ratio (10-20) Glucose (70-99) mg/dl POC Glucose 120 H 107 H (70-99) mg/dl Calcium (8.5-10.1) mg/dl PG Care Time/CCT Total # of Minutes Spent Total Time Spent with Patient: Total time spent is greater than 50% in coordination of care (as documented) at patient's floor/unit and/or counseling patient: Coding Level of Care Code 16673 Subseq Hosp Care Lvl 2 Diagnoses Mpzsz-em-cwpmnvu kidney injury N17.9; N18.9 CKD (chronic kidney disease) stage 3, GFR 30-59 ml/min N18.30 UTI (urinary tract infection) N39.0 Diabetes mellitus type 2 in obese E11.69; E66.9 Depression with anxiety F41.8 History of recurrent UTI (urinary tract infection) Z87.440 Morbid obesity E66.01 Dyslipidemia E78.5 Anemia D64.9 Anemia type: unspecified type Chronic pain G89.29 H/O: CVA (cerebrovascular accident) Z86.73 DVT prophylaxis Z29.9 (1) Anemia Anemia type: unspecified type Qualified Code(s): D64.9 - Anemia, unspecified
[2020-06-21] MEDS: ACETAMINOPHEN 500 MG TAB PO PRN (16:51)
[2020-06-21] MEDS: SIMVASTATIN 20 MG TAB PO SCH (20:46)
[2020-06-22] MEDS: MEROPENEM 500 MG in SYRINGE 0 ML IV SCH ×2 (03:01→14:21)
[2020-06-22] MEDS: HEPARIN SOD 5,000 UNIT/0.5 ML VIAL SQ SCH ×3 (05:45→20:55)
[2020-06-22 08:06] LABS: BUN Creatinine Ratio 16.6 (10-20); Calcium 9.1 mg/dl (8.5-10.1); Creatinine Clr Calc Pharmacy 24.8 ml/min; Est GFR (African American) 17.4; Potassium 4.5 mmol/L (3.5-5.1)
[2020-06-22] MEDS: POLYETHYLENE (MIRALAX) 17 GM PACK PO SCH (08:26)
[2020-06-22] MEDS: VITAMIN B COMPLEX TAB PO SCH ×2 (08:27→08:33)
[2020-06-22] MEDS: INSULIN ASPART 100 UNITS/ML 3 ML PEN SC SCH ×4 (08:28→21:22)
[2020-06-22] MEDS: ESCITALOPRAM OXALATE 10 MG TAB PO SCH (08:33)
[2020-06-22] MEDS: FERROUS GLUCONATE 324 MG TAB PO SCH (08:33)
[2020-06-22] MEDS: MULTIVITAMIN TAB PO SCH (08:33)
[2020-06-22] MEDS: busPIRone 5 MG TAB PO SCH (08:33)
[2020-06-22] MEDS: ASPIRIN 81 MG ECTAB PO SCH (08:33)
[2020-06-22] MEDS: CHOLECALCIFEROL 1,000 UNITS 25 MCG TAB PO SCH (08:33)
[2020-06-22] MEDS: CHECK fentaNYL PATCH PLACEMENT SCH ×3 (08:37→23:50)
--- NOTE | 2020-06-22 09:57 | Urology Progress Note ---
Date of Service June 22, 2020 Assessment & Plan (1) SOLEDAD (acute kidney injury): (2) UTI (urinary tract infection): 65 year-old female patient, with multiple comorbidities, admitted secondary to acute on chronic kidney injury, weakness, and UTI. -Patient remains afebrile. -Labs reviewed - white count normal, creatinine 3.14 today (previously 3.17) -Urine culture positive with E.coli ESBL -Continue supportive care and antibiotic therapy per culture sensitivities -No acute intervention required at this time. -Continue to monitor creatinine. -Will continue to follow while inpatient. -Outpatient urology follow-up in place Admission and Anticipated Discharge Date Admission Date: June 18, 2020 Subjective Patient examined at bedside this AM Awake, resting in bed on arrival Denies any pain or discomfort at this time Denies nausea or vomiting Denies fevers or chills Tolerating Fallon catheter, draining cloudy yellow urine. Chart review: Afebrile. Wbc 9.28 Hgb 8.7 Creatinine 3.14 (previously 3.17) - 4.81 on admission. Urine culture - E.coli ESBL Currently on IV Meropenem. Denies additional urologic concerns today. Review of Systems Constitutional: as per Subjective / HPI Gastrointestinal: as per Subjective / HPI Genitourinary: as per Subjective / HPI Physical Exam Constitutional: + obese; no acute distress Respiratory: normal respiratory effort and able to speak in complete sentences Cardiovascular: Extremities: no calf tenderness Gastrointestinal (Abdomen): Inspection/Auscultation: abdomen normal to inspection Musculoskeletal: Head/Neck/Chest: normocephalic Skin: No visible rashes, lesions, or wounds noted. Neurologic: awake; not confused Psychiatric: Orientation: alert and oriented x 3 Genitourinary: Fallon catheter intact, draining cloudy yellow urine Results & Data ([facility]) Vital Signs (Past 12 Hours) Vital Signs Temp Pulse Resp BP Pulse Ox 06/22/20 07:28 36.5 C 79 16 124/69 93 06/21/20 23:54 36.8 C 78 18 112/65 94 PG Care Time/CCT Total # of Minutes Spent Total Time Spent with Patient: Total time spent is greater than 50% in coordination of care (as documented) at patient's floor/unit and/or counseling patient: Coding Level of Care Code 68192 Subseq Hosp Care Lvl 2 Diagnoses SOLEDAD (acute kidney injury) N17.9 UTI (urinary tract infection) N39.0
[2020-06-22 10:44] LABS: Hematocrit (blood only) 27.3 % (37-47); Hemoglobin 8.6 g/dL (12.0-16.0); Mean Corpuscular Hemoglobin 27.9 pg (25-34); Mean Corpuscular Hgb Conc 31.5 g/dL (32-36); Mean Corpuscular Volume 88.6 fL (80-100); Mean Platelet Volume 8.6 fL (7.4-10.4); Platelet Count 348 K/uL (130-400); RDW Coefficient of Variation 22.9 % (11.5-14.5); RDW Standard Deviation 73.6 fL (36.4-46.3); Red Blood Count 3.08 M/uL (4.2-5.4); White Blood Count 10.12 K/uL (4.8-10.8)
[2020-06-22 11:15] LABS: BUN Creatinine Ratio 17.7 (10-20); Calcium 9.1 mg/dl (8.5-10.1); Creatinine Clr Calc Pharmacy 25.7 ml/min; Est GFR (African American) 18.2; Est GFR (Non-African American) 15.7; Potassium 4.3 mmol/L (3.5-5.1)
--- NOTE | 2020-06-22 13:24 | Hospitalist Progress Note ---
Date of Service June 22, 2020 Assessment & Plan (1) Rudjl-lr-bzwuuvo kidney injury: Acute on chronic kidney injury in the setting of stage III chronic kidney disease Patient with longstanding history of chronic kidney disease followed as an outpatient. Test Desk Operator 4 prior to admission - improving, today creatinine is 3.0 Making plenty of urine--> post-ATN diuresis K+ was elevated, given patirmoer x 1, now normal -Consult urology appreciated--> checked CT abd/pel to make sure ureteral stents in correct position since Test Desk Operator rising--> negative -have since dcd IVFs-she is dinah po -treating UTI -Fallon remains in place-consider keeping in place on dc however puts her at risk for UTI -avoid nephrotoxins (2) CKD (chronic kidney disease) stage 3, GFR 30-59 ml/min: as above, baseline stapler coil unit was 0.8 in 02/2020, then has new baseline of 1.8-2.0 since 04/2020 With SOLEDAD as above -Avoid nephrotoxins -renally dose meds when appropriate -follow BMP (3) UTI (urinary tract infection): With a h/o recurrent UTI positive for ESBL/MRSA in the past Likely has some degree of urinary retention and bedbound status/hygiene issues contributing to recurrent UTIs Ur cx here with ESBL E. coli again continue meropenem x 7-10 day course Plan to return to [place] on IV abx -will need US guided IV for dc (4) Diabetes mellitus type 2 in obese: well controlled continue Novolog SSI prn (5) Depression with anxiety: worsening mood due to recurrent hospitalizations, declines further intervention/titration of meds -continue Lexapro, Buspar (6) History of recurrent UTI (urinary tract infection): as above (7) Morbid obesity: BMI 47.3 needs weight loss (8) Dyslipidemia: continue statin (9) Anemia: hgb slightly lower than baseline 9-10 due to hemodilution hgb 8.6, stable from previous, no gross bleeding normocytic Fe studies, B12,folate nomral -this is anemia of chronic renal disease continue ferrous sulfate (10) Chronic pain: back and hips, bedbound at [place] continue fentanyl patch, baclofen (11) H/O: CVA (cerebrovascular accident): continue ASA, statin (12) DVT prophylaxis: heparin SQ Dispo-continued stay, back to [facility] once renal fxn continues to improve, will need IV Meropenem, US-guided IV Palliative consult requested for goals of care discussion in setting of recurrent hospitalizations and worsening renal function but pt absolutely refuses to talk to Palliative so this was cancelled Daughter Kymberly updated by phone Admission and Anticipated Discharge Date Admission Date: June 18, 2020 Subjective Ms. Hardy is feeling generally unwell and is terse with her responses. She does not have any specific complaints. Review of Systems Constitutional: no fever, no chills and no body aches Respiratory: no cough and no dyspnea Cardiovascular: no chest pain, no dyspnea and no palpitations Gastrointestinal: no abdominal pain, no nausea and no vomiting Genitourinary: no dysuria and no urinary hesitancy Musculoskeletal: no back pain and no joint pain Integumentary: no rash Physical Exam Physical Exam: General: no distress Eyes: normal inspection, PERLL Respiratory: chest non tender, clear to auscultation, normal breath sounds, no respiratory distress, no accessory muscle use Cardiac: regular rate and rhythm, no rub or gallop, no murmur, no edema, no jvd GI/: active bowel sounds, mild right abdominal tenderness to palpation, soft, non distended Extremities: normal range of motion, normal strength, non tender Neuro/Psych: alert and oriented x 3, normal mood and affect Skin: normal color, dry Results & Data Results & Data ([facility]) Vital Signs (Past 12 Hours) Vital Signs Temp Pulse Resp BP Pulse Ox 06/22/20 07:28 36.5 C 79 16 124/69 93 PG Care Time/CCT Total # of Minutes Spent Total Time Spent with Patient: Total time spent is greater than 50% in coordination of care (as documented) at patient's floor/unit and/or counseling patient: Coding Level of Care Code 00945 Subseq Hosp Care Lvl 2 Diagnoses Judwm-lt-zmvirws kidney injury N17.9; N18.9 CKD (chronic kidney disease) stage 3, GFR 30-59 ml/min N18.30 UTI (urinary tract infection) N39.0 Diabetes mellitus type 2 in obese E11.69; E66.9 Depression with anxiety F41.8 History of recurrent UTI (urinary tract infection) Z87.440 Morbid obesity E66.01 Dyslipidemia E78.5 Anemia D64.9 Anemia type: unspecified type Chronic pain G89.29 H/O: CVA (cerebrovascular accident) Z86.73 DVT prophylaxis Z29.9 (1) Anemia Anemia type: unspecified type Qualified Code(s): D64.9 - Anemia, unspecified
[2020-06-22] MEDS: ACETAMINOPHEN 500 MG TAB PO PRN (18:18)
[2020-06-22] MEDS: SIMVASTATIN 20 MG TAB PO SCH (20:57)
[2020-06-23] MEDS: MEROPENEM 500 MG in SYRINGE 0 ML IV SCH ×2 (02:12→15:21)
[2020-06-23] MEDS: HEPARIN SOD 5,000 UNIT/0.5 ML VIAL SQ SCH ×3 (05:23→20:43)
[2020-06-23 07:00] LABS: Hematocrit (blood only) 26.6 % (37-47); Hemoglobin 8.4 g/dL (12.0-16.0); Mean Corpuscular Hemoglobin 28.2 pg (25-34); Mean Corpuscular Hgb Conc 31.6 g/dL (32-36); Mean Corpuscular Volume 89.3 fL (80-100); Mean Platelet Volume 8.6 fL (7.4-10.4); Platelet Count 335 K/uL (130-400); RDW Coefficient of Variation 22.9 % (11.5-14.5); Red Blood Count 2.98 M/uL (4.2-5.4); White Blood Count 9.64 K/uL (4.8-10.8)
[2020-06-23 07:31] LABS: BUN Creatinine Ratio 17.2 (10-20); Calcium 8.7 mg/dl (8.5-10.1); Creatinine Clr Calc Pharmacy 24.9 ml/min; Est GFR (African American) 17.5; Est GFR (Non-African American) 15.1; Potassium 4.2 mmol/L (3.5-5.1)
--- NOTE | 2020-06-23 08:05 | Urology Progress Note ---
Date of Service June 23, 2020 Assessment & Plan (1) SOLEDAD (acute kidney injury): History of UTIs; bilateral hydronephrosis status post bilateral ureteral stents Fallon catheter in place Culture with ESBL E. colion antibiotics now Creatinine has plateaued around 3.0 (today 3.1), still slightly above her baseline Her stents were placed on 05/05/2020 Although she does not show hydronephrosis on her most recent CT, the failure to improve her creatinine and her continued symptoms raise the possibility that she could benefit from stent exchange I would like to observe her longer before making this decision, but we will continue to follow Admission and Anticipated Discharge Date Admission Date: June 18, 2020 Subjective Complaining of right abdominal and flank pain this morning Uncertain etiology No nausea or vomiting No association with urination (does have a Fallon catheter in place) CT reviewed and discussed againno hydronephrosis on right or left, stents in appropriate position Physical Exam Constitutional: well developed and well nourished Somewhat uncomfortable appearing Neck: neck nontender Respiratory: normal respiratory effort; no respiratory distress and does not use accessory muscles Cardiovascular: Rate/Rhythm: regular rate Vessels: radial pulses present Extremities: no edema Gastrointestinal (Abdomen): Inspection/Auscultation: abdomen normal to inspection (Soft, mild tenderness on the right flank) Percussion/Palpation: abdomen soft; abdomen nontender and no guarding Musculoskeletal: Head/Neck/Chest: normocephalic and head atraumatic Extremities: extremities normal to inspection Skin: no rashes and no lesions Trauma: no evidence of skin trauma Neurologic: awake; not obtunded Speech / Cognition: normal speech Motor/Sensory: no tremor Psychiatric: Orientation: alert and oriented x 3 Lymphatic: no lymphadenopathy Results & Data ([facility]) Vital Signs (Past 12 Hours) Vital Signs Temp Pulse Resp BP Pulse Ox 06/23/20 07:57 36.8 C 84 18 101/67 95 06/22/20 23:09 36.9 C 83 16 119/72 95 PG Care Time/CCT Total # of Minutes Spent Total Time Spent with Patient: Total time spent is greater than 50% in coordination of care (as documented) at patient's floor/unit and/or counseling patient: Coding Level of Care Code 33488 Subseq Hosp Care Lvl 2 Diagnoses SOLEDAD (acute kidney injury) N17.9
[2020-06-23] MEDS: POLYETHYLENE (MIRALAX) 17 GM PACK PO SCH (08:23)
[2020-06-23] MEDS: fentaNYL 12 MCG/HR TDSY TD SCH (08:57)
[2020-06-23] MEDS: INSULIN ASPART 100 UNITS/ML 3 ML PEN SC SCH ×4 (08:59→21:25)
[2020-06-23] MEDS: ASPIRIN 81 MG ECTAB PO SCH (09:01)
[2020-06-23] MEDS: busPIRone 5 MG TAB PO SCH (09:01)
[2020-06-23] MEDS: MULTIVITAMIN TAB PO SCH (09:01)
[2020-06-23] MEDS: ESCITALOPRAM OXALATE 10 MG TAB PO SCH (09:01)
[2020-06-23] MEDS: VITAMIN B COMPLEX TAB PO SCH (09:01)
[2020-06-23] MEDS: FERROUS GLUCONATE 324 MG TAB PO SCH (09:01)
[2020-06-23] MEDS: CHOLECALCIFEROL 1,000 UNITS 25 MCG TAB PO SCH (09:02)
[2020-06-23] MEDS: CHECK fentaNYL PATCH PLACEMENT SCH ×2 (09:09→15:21)
--- NOTE | 2020-06-23 12:45 | Hospitalist Progress Note ---
Date of Service June 23, 2020 Assessment & Plan (1) Jqaxr-as-svfmlyq kidney injury: Acute on chronic kidney injury in the setting of stage III chronic kidney disease Patient with longstanding history of chronic kidney disease followed as an outpatient. E Commerce Specialist 4 prior to admission - improved to around 3 but has been around there for the past few days. Making plenty of urine--> post-ATN diuresis K+ was elevated, given patirmoer x 1, now normal -Consult urology appreciated--> checked CT abd/pel to make sure ureteral stents in correct position since E Commerce Specialist rising--> negative. Urology may perform stent exchange given plateaued creatinine -have since dcd IVFs-she is dinah po -treating UTI -Engel remains in place-consider keeping in place on dc however puts her at risk for UTI -avoid nephrotoxins (2) CKD (chronic kidney disease) stage 3, GFR 30-59 ml/min: as above, baseline lead producer was 0.8 in 02/2020, then has new baseline of 1.8-2.0 since 04/2020 With SOLEDAD as above -Avoid nephrotoxins -renally dose meds when appropriate -follow BMP (3) UTI (urinary tract infection): With a h/o recurrent UTI positive for ESBL/MRSA in the past Likely has some degree of urinary retention and bedbound status/hygiene issues contributing to recurrent UTIs Ur cx here with ESBL E. coli again continue meropenem x 7-10 day course Plan to return to [place] on IV abx -will need US guided IV for dc (4) Diabetes mellitus type 2 in obese: well controlled continue Novolog SSI prn (5) Depression with anxiety: worsening mood due to recurrent hospitalizations, declines further intervention/titration of meds -continue Lexapro, Buspar (6) History of recurrent UTI (urinary tract infection): as above (7) Morbid obesity: BMI 47.3 needs weight loss (8) Dyslipidemia: continue statin (9) Anemia: hgb slightly lower than baseline 9-10 due to hemodilution hgb 8.4, stable from previous, no gross bleeding although stool noted to have bright red blood yesterday in nursing notes normocytic Fe studies, B12,folate nomral -this is anemia of chronic renal disease continue ferrous sulfate (10) Chronic pain: back and hips, bedbound at [place] continue fentanyl patch, baclofen (11) Abdominal pain: Unclear etiology, no nausea or vomiting, stable vss, no leukocytosis. Last bm was yesterday. Will check LFTs as pain is in the upper right quadrant (12) H/O: CVA (cerebrovascular accident): continue ASA, statin (13) DVT prophylaxis: heparin SQ Dispo-continued stay[facility] renal fxn continues to improve, will complete IV abx by the time of discharge Palliative consult requested for goals of care discussion in setting of recurrent hospitalizations and worsening renal function but pt absolutely refuses to talk to Palliative so this was cancelled Admission and Anticipated Discharge Date Admission Date: June 18, 2020 Subjective Ms. Hardy is complaining of right upper quadrant abdominal pain. She is generally uncomfortable and unhappy to be about her situation. Review of Systems Constitutional: no fever and no chills Respiratory: no cough and no dyspnea Cardiovascular: no chest pain and no dyspnea Gastrointestinal: + abdominal pain; no nausea and no vomiting Genitourinary: no dysuria and no urinary hesitancy engel Musculoskeletal: neck pain, no headache Physical Exam Physical Exam: General: no distress Eyes: normal inspection, PERLL Respiratory: chest non tender, clear to auscultation, normal breath sounds, no respiratory distress, no accessory muscle use Cardiac: regular rate and rhythm, no rub or gallop, no murmur, no edema, no jvd GI/: active bowel sounds, abdomen tender over right upper quadrant, soft, non distended Extremities: normal range of motion, normal strength, non tender Neuro/Psych: alert and oriented x 3, angry mood and affect Skin: normal color, dry Results & Data Results & Data ([facility]) Vital Signs (Past 12 Hours) Vital Signs Temp Pulse Resp BP Pulse Ox 06/23/20 07:57 36.8 C 84 18 101/67 95 PG Care Time/CCT Total # of Minutes Spent Total Time Spent with Patient: Total time spent is greater than 50% in coordination of care (as documented) at patient's floor/unit and/or counseling patient: Coding Level of Care Code 36610 Subseq Hosp Care Lvl 2 Diagnoses Zzlxa-fw-fbrfexg kidney injury N17.9; N18.9 CKD (chronic kidney disease) stage 3, GFR 30-59 ml/min N18.30 UTI (urinary tract infection) N39.0 Diabetes mellitus type 2 in obese E11.69; E66.9 Depression with anxiety F41.8 History of recurrent UTI (urinary tract infection) Z87.440 Morbid obesity E66.01 Dyslipidemia E78.5 Anemia D64.9 Anemia type: unspecified type Chronic pain G89.29 Abdominal pain R10.9 H/O: CVA (cerebrovascular accident) Z86.73 DVT prophylaxis Z29.9 (1) Anemia Anemia type: unspecified type Qualified Code(s): D64.9 - Anemia, unspecified
[2020-06-23 13:19] LABS: Albumin Level 2.3 gm/dl (3.4-5.0); Bilirubin Direct 0.1 mg/dl (0-0.2); Bilirubin,Total 0.3 mg/dl (0.2-1); Total Protein 7.4 gm/dl (6.4-8.2)
[2020-06-23] MEDS: BACLOFEN 10 MG TAB PO PRN (15:21)
[2020-06-23] MEDS: DICYCLOMINE HCL 10 MG CAP PO PRN ×2 (15:56→21:17)
[2020-06-23] MEDS: ACETAMINOPHEN 500 MG TAB PO PRN (17:25)
--- NOTE | 2020-06-23 18:05 | XRay Report ---
XR KUB/Abdomen 1 view CLINICAL HISTORY: abdominal pain COMPARISON STUDY: 06/18/2020 FINDINGS: There are bilateral double pigtail nephroureteral stents. There is no pathologic bowel dila tation. There are surgical clips within the right upper quadrant consistent with a prior cholecystect eva. Advanced arthritic changes are present within the hips. There is a stable 3 mm calcification adj acent to the distal one third of the right stent. This likely represents a vascular calcification, as no ureteral calculi are visualized in the CT scan performed 06/19/2020 IMPRESSION: 1. Nonobstructive bowel gas pattern 2. Bilateral nephroureteral stents. No definite renal, ureteral, or bladder calculi identified. ACT 112: Negative or not required by law. Electronically signed by: Denton Cerda M.D. 06/23/2020 6:03 PM
[2020-06-23] MEDS: SIMVASTATIN 20 MG TAB PO SCH (20:42)
[2020-06-24] MEDS: CHECK fentaNYL PATCH PLACEMENT SCH ×4 (00:02→23:41)
[2020-06-24] MEDS: MEROPENEM 500 MG in SYRINGE 0 ML IV SCH ×2 (03:37→14:13)
[2020-06-24] MEDS: DICYCLOMINE HCL 10 MG CAP PO PRN ×2 (03:44→13:24)
[2020-06-24] MEDS: HEPARIN SOD 5,000 UNIT/0.5 ML VIAL SQ SCH ×3 (05:23→20:44)
[2020-06-24] MEDS: busPIRone 5 MG TAB PO SCH (08:50)
[2020-06-24] MEDS: CHOLECALCIFEROL 1,000 UNITS 25 MCG TAB PO SCH (08:50)
[2020-06-24] MEDS: ASPIRIN 81 MG ECTAB PO SCH (08:51)
[2020-06-24] MEDS: MULTIVITAMIN TAB PO SCH (08:51)
[2020-06-24] MEDS: FERROUS GLUCONATE 324 MG TAB PO SCH (08:51)
[2020-06-24] MEDS: ESCITALOPRAM OXALATE 10 MG TAB PO SCH (08:51)
[2020-06-24] MEDS: POLYETHYLENE (MIRALAX) 17 GM PACK PO SCH (08:52)
[2020-06-24] MEDS: INSULIN ASPART 100 UNITS/ML 3 ML PEN SC SCH ×4 (08:54→22:38)
[2020-06-24 10:16] LABS: Hematocrit (blood only) 27.3 % (37-47); Hemoglobin 8.5 g/dL (12.0-16.0); Mean Corpuscular Hemoglobin 28.1 pg (25-34); Mean Corpuscular Hgb Conc 31.1 g/dL (32-36); Mean Corpuscular Volume 90.1 fL (80-100); Mean Platelet Volume 8.8 fL (7.4-10.4); Platelet Count 350 K/uL (130-400); RDW Standard Deviation 74.5 fL (36.4-46.3); Red Blood Count 3.03 M/uL (4.2-5.4); White Blood Count 8.55 K/uL (4.8-10.8)
[2020-06-24 10:33] LABS: BUN Creatinine Ratio 20.2 (10-20); Calcium 9.1 mg/dl (8.5-10.1); Creatinine Clr Calc Pharmacy 29.9 ml/min; Est GFR (African American) 21.8; Est GFR (Non-African American) 18.8; Potassium 4.5 mmol/L (3.5-5.1)
--- NOTE | 2020-06-24 13:35 | Urology Progress Note ---
Date of Service June 24, 2020 Assessment & Plan (1) SOLEDAD (acute kidney injury): (2) UTI (urinary tract infection): 65 year-old female patient, with multiple comorbidities, admitted secondary to acute on chronic kidney injury, weakness, and UTI. -Hx of bilateral ureteral stent placement on 05/05/20 -Patient remains afebrile. -Labs reviewed - white count normal, creatinine 2.61 today (previously 3.13) -Urine culture positive with E.coli ESBL -Continue supportive care and antibiotic therapy per culture sensitivities -No acute intervention required at this time. -Continue to monitor creatinine. -Will continue to follow peripherally -Outpatient urology follow-up in place (07/08/[address] Toney) -Thank you for allowing us to participate in the acute care of Mrs. Hardy. Please reconsult us with additional questions, concerns or changes in patient status. Admission and Anticipated Discharge Date Admission Date: June 18, 2020 Subjective 65 year-old female patient, with multiple comorbidities, admitted secondary to acute on chronic kidney injury, weakness, and UTI. Patient examined at bedside this AM Awake, resting in bed on arrival Reports some bilateral lower abdominal pain Denies nausea or vomiting Denies fevers or chills Tolerating Fallon catheter, draining clear yellow urine. Chart review: Afebrile. Wbc 8.55 Hgb 8.5 Creatinine 2.61 (previously 3.13) - 4.81 on admission. Urine culture - E.coli ESBL Currently on IV Meropenem. Review of Systems Constitutional: as per Subjective / HPI Gastrointestinal: as per Subjective / HPI Genitourinary: as per Subjective / HPI Physical Exam Constitutional: well developed and well nourished; no acute distress Respiratory: normal respiratory effort and able to speak in complete sentences Gastrointestinal (Abdomen): Inspection/Auscultation: abdomen normal to inspection; abdomen not distended Musculoskeletal: Head/Neck/Chest: normocephalic Neurologic: awake; not confused Psychiatric: Orientation: alert and oriented x 3 Genitourinary: Fallon catheter intact, draining clear yellow urine Results & Data ([facility]) Vital Signs (Past 12 Hours) Vital Signs Temp Pulse Resp BP Pulse Ox 06/24/20 07:41 36.5 C 81 18 103/65 94 PG Care Time/CCT Total # of Minutes Spent Total Time Spent with Patient: Total time spent is greater than 50% in coordination of care (as documented) at patient's floor/unit and/or counseling patient: Coding Level of Care Code 35460 Subseq Hosp Care Lvl 2 Diagnoses SOLEDAD (acute kidney injury) N17.9 UTI (urinary tract infection) N39.0
[2020-06-24] MEDS: ACETAMINOPHEN 500 MG TAB PO PRN (15:40)
[2020-06-24] MEDS: BACLOFEN 10 MG TAB PO PRN ×2 (15:40→22:30)
--- NOTE | 2020-06-24 19:15 | Hospitalist Progress Note ---
Date of Service June 24, 2020 Assessment & Plan (1) Vfpmc-lv-zxlxmgs kidney injury: Acute on chronic kidney injury in the setting of stage III chronic kidney disease Patient with longstanding history of chronic kidney disease followed as an outpatient. Overhead Worker 4 prior to admission - now improved to 2.6 Making plenty of urine--> post-ATN diuresis K+ was elevated, given patirmoer x 1, now normal -Consult urology appreciated--> checked CT abd/pel to make sure ureteral stents in correct position since Overhead Worker rising--> negative. Urology now signed off -have since dcd IVFs-she is dinah po -treating UTI -Fallon remains in place-consider keeping in place on dc however puts her at risk for UTI -avoid nephrotoxins (2) CKD (chronic kidney disease) stage 3, GFR 30-59 ml/min: as above, baseline life science technical officer was 0.8 in 02/2020, then has new baseline of 1.8-2.0 since 04/2020 With SOLEDAD as above -Avoid nephrotoxins -renally dose meds when appropriate -follow BMP (3) UTI (urinary tract infection): With a h/o recurrent UTI positive for ESBL/MRSA in the past Likely has some degree of urinary retention and bedbound status/hygiene issues contributing to recurrent UTIs Ur cx here with ESBL E. coli again continue meropenem x 7-10 day course Plan to return to [place] on IV abx -abx will be completed at discharge (4) Diabetes mellitus type 2 in obese: well controlled continue Novolog SSI prn (5) Depression with anxiety: worsening mood due to recurrent hospitalizations, declines further intervention/titration of meds -continue Lexapro, Buspar (6) History of recurrent UTI (urinary tract infection): as above (7) Morbid obesity: BMI 47.3 needs weight loss (8) Dyslipidemia: continue statin (9) Anemia: hgb slightly lower than baseline 9-10 hgb 8.4, stable from previous normocytic Fe studies, B12,folate nomral -this is anemia of chronic renal disease continue ferrous sulfate (10) Chronic pain: back and hips, bedbound at [place] continue fentanyl patch, baclofen (11) Abdominal pain: Unclear etiology, no nausea or vomiting, stable vss, no leukocytosis. Belly is soft and tender to palpation across upper quadrants. Patient eating meals without issue. Having bms, LFTs were normal on check. Patient does not have a gallbladder. KUB without obstructive pattern. Lipase with very marginal elevation at 469. Continue serial abdominal exams (12) H/O: CVA (cerebrovascular accident): continue ASA, statin (13) DVT prophylaxis: heparin SQ Dispo-continued stay, likely back to [facility] tomorrow given improvement in kidney function and urology has signed off, IV abx completed Palliative consult requested for goals of care discussion in setting of recurrent hospitalizations and worsening renal function but pt absolutely refuses to talk to Palliative so this was cancelled Admission and Anticipated Discharge Date Admission Date: June 18, 2020 Supervising Physician Co-Signing Physician Notes chart reviewed and case d/w S Siena HORNE. agree w above Subjective Continues to have abdominal pain but unclear etiology. No nausea or vomiting, no increase or decrease in pain with eating. Having bowel movements. Review of Systems Constitutional: no fever, no chills and no body aches Cardiovascular: no chest pain, no dyspnea and no palpitations Gastrointestinal: as per Subjective / HPI Genitourinary: no dysuria and no urinary hesitancy Musculoskeletal: + back pain; no joint pain Integumentary: no rash Physical Exam Physical Exam: General: no distress Eyes: normal inspection, PERLL Respiratory: chest non tender, clear to auscultation, normal breath sounds, no respiratory distress, no accessory muscle use Cardiac: regular rate and rhythm, no rub or gallop, no murmur, no edema, no jvd GI/: active bowel sounds, abdominal tenderness across upper quadrants, soft, non distended Extremities: normal range of motion, normal strength, non tender Neuro/Psych: alert and oriented x 3, normal mood and affect Skin: normal color, dry Results & Data Results & Data ([facility]) Vital Signs (Past 12 Hours) Vital Signs Temp Pulse Resp BP Pulse Ox 06/24/20 15:10 36.7 C 78 17 128/76 96 06/24/20 07:41 36.5 C 81 18 103/65 94 PG Care Time/CCT Total # of Minutes Spent Total Time Spent with Patient: Total time spent is greater than 50% in coordination of care (as documented) at patient's floor/unit and/or counseling patient: Coding Level of Care Code 24950 Subseq Hosp Care Lvl 2 Diagnoses Fymqp-sd-gnspscf kidney injury N17.9; N18.9 CKD (chronic kidney disease) stage 3, GFR 30-59 ml/min N18.30 UTI (urinary tract infection) N39.0 Diabetes mellitus type 2 in obese E11.69; E66.9 Depression with anxiety F41.8 History of recurrent UTI (urinary tract infection) Z87.440 Morbid obesity E66.01 Dyslipidemia E78.5 Anemia D64.9 Anemia type: unspecified type Chronic pain G89.29 Abdominal pain R10.9 H/O: CVA (cerebrovascular accident) Z86.73 DVT prophylaxis Z29.9 (1) Anemia Anemia type: unspecified type Qualified Code(s): D64.9 - Anemia, unspecified
[2020-06-24] MEDS ORDERED: busPIRone 5 MG TAB PO ONE (20:00)
[2020-06-24] MEDS: SIMVASTATIN 20 MG TAB PO SCH (20:44)
[2020-06-24] MEDS ORDERED: LORazepam 0.5 MG TAB PO STA (23:35)
[2020-06-24] MEDS ORDERED: LORazepam 0.5 MG TAB ONE (23:39)
[2020-06-25] MEDS: MEROPENEM 500 MG in SYRINGE 0 ML IV SCH ×2 (03:48→14:10)
[2020-06-25] MEDS: HEPARIN SOD 5,000 UNIT/0.5 ML VIAL SQ SCH ×2 (05:41→13:10)
[2020-06-25 06:41] LABS: Hematocrit (blood only) 27.1 % (37-47); Hemoglobin 8.6 g/dL (12.0-16.0); Mean Corpuscular Hemoglobin 28.4 pg (25-34); Mean Corpuscular Hgb Conc 31.7 g/dL (32-36); Mean Corpuscular Volume 89.4 fL (80-100); Mean Platelet Volume 8.8 fL (7.4-10.4); Platelet Count 307 K/uL (130-400); RDW Coefficient of Variation 23.1 % (11.5-14.5); RDW Standard Deviation 74.6 fL (36.4-46.3); Red Blood Count 3.03 M/uL (4.2-5.4); White Blood Count 9.53 K/uL (4.8-10.8)
[2020-06-25 07:14] LABS: Albumin Level 2.4 gm/dl (3.4-5.0); BUN Creatinine Ratio 21.5 (10-20); Calcium 9.1 mg/dl (8.5-10.1); Creatinine Clr Calc Pharmacy 31.3 ml/min; Est GFR (Non-African American) 19.9; Potassium 4.4 mmol/L (3.5-5.1)
[2020-06-25 07:17] LABS: Albumin Globulin Ratio 0.5 (0.9-2); Bilirubin,Total 0.4 mg/dl (0.2-1); Globulin 5.3 gm/dl (2.5-4.0); Total Protein 7.7 gm/dl (6.4-8.2)
[2020-06-25] MEDS: CHECK fentaNYL PATCH PLACEMENT SCH ×2 (08:26→15:47)
[2020-06-25] MEDS: INSULIN ASPART 100 UNITS/ML 3 ML PEN SC SCH ×2 (09:29→13:10)
[2020-06-25] MEDS: busPIRone 5 MG TAB PO SCH (09:31)
[2020-06-25] MEDS: ASPIRIN 81 MG ECTAB PO SCH (09:32)
[2020-06-25] MEDS: POLYETHYLENE (MIRALAX) 17 GM PACK PO SCH (09:32)
[2020-06-25] MEDS: CHOLECALCIFEROL 1,000 UNITS 25 MCG TAB PO SCH (09:32)
[2020-06-25] MEDS: VITAMIN B COMPLEX TAB PO SCH (09:32)
[2020-06-25] MEDS: ESCITALOPRAM OXALATE 10 MG TAB PO SCH (09:32)
[2020-06-25] MEDS: MULTIVITAMIN TAB PO SCH (09:32)
[2020-06-25] MEDS: FERROUS GLUCONATE 324 MG TAB PO SCH (09:32)
[2020-06-25] MEDS: BACLOFEN 10 MG TAB PO PRN (12:12)
--- NOTE | 2020-06-25 13:36 | Discharge Summary ---
Date of Service June 25, 2020 Admission HPI Per Admitting Provider Patient is a 65-year-old female with a past medical history of ESBL/MRSA urinary tract infections with a past medical history of ureteral stent placement, ARF/SOLEDAD, recent infection with Covid, depression anxiety, dyslipidemia, diabetes type 2, anemia, chronic back pain, history of a CVA, who presents at the insistence of her outpatient provider for an elevated creatinine. Her baseline creatinine was 2 with a recent increase to 4. After interviewing the patient she stated she was in her usual state of health, there is been no significant changes to her diet or activity level, she is not experiencing symptoms typical of UTI. She denies all constitutional symptoms including fever, chills, cough, congestion, new or worsening back pain, or any other concerning signs or features, she reports making urine. She has had similar previous episodes where she is required IV hydration antibiotics and unwell.In the emergency department labs were obtained CBC was within normal limits, Chem-7 was notable for a cre atinine of 4.43, the remainder electrolytes were within normal values, glucose was a bit high at 129, albumin was 2.1. A UA was obtained demonstrating turbid urine, positive for nitrates, blood, leuk esterase and epithelial cells. Given her acute rising creatinine suspicious urinary findings and and history of MRSA/ESBL UTI, the patient will be admitted for further treatment and evaluation [facility] Principal Diagnosis SOLEDAD Discharge Exam Constitutional WD/WN, vitals as above Respiratory normal respiratory effort, lungs clear to auscultation Cardiovascular RRR, no murmur, no edema Gastrointestinal (Abdomen) Inspection/Auscultation: abdomen normal to inspection and normal bowel sounds; abdomen not distended Percussion/Palpation: + abdomen tender and abdomen soft Musculoskeletal no cyanosis or clubbing, extremities motor strength 5/5 Skin no rashes, warm and dry Neurologic moves all extremities and awake Psychiatric Orientation: alert and oriented x 3 Affect: + irritable affect Discharge Data Allergies Allergy/AdvReac Type Severity Reaction Status Date / Time Penicillins Allergy Unknown . Verified 06/17/20 23:40 pregabalin Allergy Unknown . Verified 06/17/20 23:40 tramadol Allergy Unknown . Verified 06/17/20 23:40 cefazolin [From Ancef] Allergy Unknown Verified 06/17/20 23:40 ertapenem AdvReac Intermediate Confusion,H Verified 06/17/20 23:40 ellis ns Consultations 06/17/20 22:50 ED Decision to Admit Stat 06/18/20 02:05 Consult Urology Routine Ordered Studies 06/19/20 11:33 CT abd pelvis wo con Routine Hospital Course (1) Cybyq-af-ejgrsyr kidney injury: Acute on chronic kidney injury in the setting of stage III chronic kidney disease Patient with longstanding history of chronic kidney disease followed as an outpatient. Apron Worker 4 prior to admission - now improved to 2.5 Making plenty of urine--> post-ATN diuresis K+ was elevated, given patirmoer x 1, now normal -Consult urology appreciated--> checked CT abd/pel to make sure ureteral stents in correct position since Apron Worker rising--> negative. Urology now signed off. Continue Fallon until follow up -avoid nephrotoxins - recheck bmp in 2 days and serially - Have patient follow up with nephrology (2) CKD (chronic kidney disease) stage 3, GFR 30-59 ml/min: as above, baseline forming fixer was 0.8 in 02/2020, then has new baseline of 1.8-2.0 since 04/2020 With SOLEDAD as above -Avoid nephrotoxins -renally dose meds when appropriate -follow BMP (3) UTI (urinary tract infection): With a h/o recurrent UTI positive for ESBL/MRSA in the past Likely has some degree of urinary retention and bedbound status/hygiene issues contributing to recurrent UTIs Ur cx here with ESBL E. coli again Given meropenem x 7 days (4) Diabetes mellitus type 2 in obese: well controlled continue Novolog SSI prn Return to alogliptin therapy for home, Last A1c 8.3% (5) Depression with anxiety: worsening mood due to recurrent hospitalizations, declines further intervention/titration of meds -continue Lexapro, Buspar Consider increasing Buspar to bid for better anxiety control (6) History of recurrent UTI (urinary tract infection): as above (7) Morbid obesity: BMI 47.3 needs weight loss (8) Dyslipidemia: continue statin (9) Anemia: hgb slightly lower than baseline 9-10 hgb 8.4, stable from previous normocytic Fe studies, B12,folate nomral -this is anemia of chronic renal disease continue ferrous sulfate (10) Chronic pain: back and hips, bedbound at MD continue fentanyl patch, baclofen (11) Abdominal pain: Unclear etiology, no nausea or vomiting, stable vss, no leukocytosis. Belly is soft and tender to palpation across upper quadrants. Patient eating meals without issue. Having bms, LFTs were normal on check. Patient does not have a gallbladder. KUB without obstructive pattern. Lipase with very marginal elevation at 469. Likely colonic pain, continue bowel regimen. Patient refusing miralax (12) H/O: CVA (cerebrovascular accident): continue ASA, statin (13) DVT prophylaxis: heparin SQ Dispo- discharge back to [facility] Palliative consult requested for goals of care discussion in setting of recurrent hospitalizations and worsening renal function but pt absolutely refuses to talk to Palliative so this was cancelled Patient's daughter updated over the phone Total Time Total Time Spent Total Time Spent (In Minutes): greater than 30 minutes Discharge Plan Discharge Items Patient Disposition: Transfer Group Home Fac Reason For Visit: SOLEDAD ON CKD Discharge Diagnosis: SOLEDAD Activity: Resume your previous activity Non-emergency contact: Primary Care Provider Call non-emergency contact if: you have any medication questions Follow-up/Referrals: Miles Carson [Primary Care Provider] - Diet: Carb Consistent or DM2, Heart Healthy and Low Potassium (2gm) Addtl Attending Provider Instructions: (1) Lvree-vo-eoaqzik kidney injury: Acute on chronic kidney injury in the setting of stage III chronic kidney disease Patient with longstanding history of chronic kidney disease followed as an outpatient. Apron Worker 4 prior to admission - now improved to 2.49. Making plenty of urine--> post-ATN diuresis Potassium was elevated earlier in her stay, given patiromer x 1, now normal -Consult urology appreciated--> checked CT abd/pel to make sure ureteral stents were in correct position since Apron Worker rising--> negative -Outpatient urology follow-up in place (07/08/[address] Toney) - Patient should also follow up with nephrology and have prp drawn serially - recommend she get next prp in 2 days -Will leave Fallon catheter in place until follow up with urology -avoid nephrotoxins (2) CKD (chronic kidney disease) stage 3, GFR 30-59 ml/min: as above, baseline forming fixer was 0.8 in 02/2020, then has new baseline of 1.8-2.0 since 04/2020 (3) UTI (urinary tract infection): With a h/o recurrent UTI positive for ESBL/MRSA in the past Urine culture here with ESBL E. coli again Given meropenem for a seven day course Would not give further antibiotics for positive culture unless patient is symptomatic as she is likely a colonizer (4) Diabetes mellitus type 2 in obese: well controlled continue Novolog SSI prn (5) Depression with anxiety: -continue Lexapro, Buspar - given extra dose of Buspar last evening, consider increasing dosing to bid given patient's anxiety is not well controlled (6) History of recurrent UTI (urinary tract infection): as above (7) Morbid obesity: BMI 47.3 needs weight loss (8) Dyslipidemia: continue statin (9) Anemia: Stable - hgb has been around 8.5 this stay normocytic Fe studies, B12,folate nomral -this is anemia of chronic renal disease continue ferrous sulfate (10) Chronic pain: back and hips, bedbound at MD continue fentanyl patch, baclofen DC meloxicam for kidney function (11) Abdominal pain: Likely colonic pain/constipation. Patient is having bms, LFTs were normal on check. KUB without obstructive pattern. Lipase with very marginal elevation at 469. Continue Senakot, patient declines Miralax (12) H/O: CVA (cerebrovascular accident): continue ASA, statin Pending Studies at Discharge: No Stand-Alone Forms: My [facility] Skilled Items Patient informed of condition?: Yes DNR: No Discharge Level of Care: Skilled Communicable Disease: No Discharge Prognosis: Stable Lines: None Urinary Catheter: Yes Medications and DC Order Prescriptions: Continued ferrous gluconate 324 mg (38 mg iron) Tablet 324 mg PO QAM Qty: 30 RF: 0 escitalopram oxalate 10 mg tablet 10 mg PO QAM RF: 0 famotidine 20 mg Tablet 20 mg PO BID Qty: 60 RF: 0 sennosides-docusate sodium [Senokot-S] 8.6-50 mg Tablet 1 tab PO HS PRN (Reason: Constipation) Qty: 0 RF: 0 fentanyl 12 mcg/hr Patch 72 Hour 1 patch TRANSDERMAL Q72H Qty: 1 RF: 0 alogliptin 25 mg Tablet 25 mg PO QAM RF: 0 Stress Formula Tablet 1 tab PO DAILY RF: 0 B-complex with vitamin C Tablet 1 tab PO QAM RF: 0 baclofen 10 mg tablet 10 mg PO Q8 PRN (Reason: Muscle spasm) RF: 0 acetaminophen 325 mg Tablet 650 mg PO Q6 MDD 3gm PRN (Reason: pain 1-5) RF: 0 acetaminophen [Tylenol] 325 mg Tablet 650 mg PO Q6 MDD 3gm PRN (Reason: temp>101) RF: 0 simvastatin 20 mg Tablet 20 mg PO HS RF: 0 buspirone 10 mg Tablet 10 mg PO QAM RF: 0 aspirin 81 mg Tablet,Chewable 81 mg PO QAM RF: 0 dicyclomine 10 mg Capsule 10 mg PO Q6H PRN (Reason: abdominal cramping) RF: 0 cholecalciferol (vitamin D3) [Vitamin D3] 125 mcg (5,000 unit) Tablet 5,000 unit PO QAM RF: 0 D-Mannose 500mg Capsule 1,000 mg PO BID RF: 0 Discontinued meloxicam 15 mg Tablet 15 mg PO QAM RF: 0 Discharge Orders: Discharge Order (Routine); Ordered 06/25/20 Ordered By: Jeannine Wren Admission Data Admit Date/Time: 06/18/20 00:25 Attending Provider: Wesley Cardoso Admit Provider: Sánchez Chambers I. Primary Care Provider: Miles Carson Other Providers: Raymond Harris ; Eric Capps ; Nilson Jim ; Brett Wallace ; Johnna Gregg ; Kristie Morgan ; Tyree Toney ; Lashanda Wren ; Pat Lowe ; Kymberly Hillman ; Rafy Blakely ; Cherry Moscoso ; Paula Dumont ; Dale Hillman Other Interventions: Discharge Summary Assessment (RN) Last Done: 06/25/20 13:50 Supervising Physician Co-Signing Physician Notes I personally examined the patient and verified all del rosario points of history and exam, discussed case, and agree with decision making with Lori HORNE. abdominal pain persists. mostly upper abdomen. eating does not change it/does not make it worse. nothign really seems to make it better. having BM the last few days, but apparently constipated before that. no f/c/s. no n/v. vitals noted nad heent nc at mmm breathing unlabored no accessory muscles good effort abd soft nd mild upper abdominal tenderness to palp epigastric and RUQ maybe a little LUQ no guarding no rebound no rigidity no tenderness elsewhere CT and KUB reports and films personally reviewed abdominal pain - no overt worrisome pathology. pain appears most c/w colonic pain - initially constipation now likely this mixed w gas. continue bowel regimen, but appears safe to be followed as outpt. d/w pt if not seeing significant improvement over next ~3-5 days, would then be reasonable to see GI to consider colo. otherwise as above Coding Level of Care Code D/C Day Management >30 mins Diagnoses Syfjz-bp-lvyujcx kidney injury N17.9; N18.9 CKD (chronic kidney disease) stage 3, GFR 30-59 ml/min N18.30 UTI (urinary tract infection) N39.0 Diabetes mellitus type 2 in obese E11.69; E66.9 Depression with anxiety F41.8 History of recurrent UTI (urinary tract infection) Z87.440 Morbid obesity E66.01 Dyslipidemia E78.5 Anemia D64.9 Anemia type: unspecified type Chronic pain G89.29 Abdominal pain R10.9 H/O: CVA (cerebrovascular accident) Z86.73 DVT prophylaxis Z29.9
[2020-06-25] MEDS: ACETAMINOPHEN 500 MG TAB PO PRN (19:01)
== END 2020-06-25 19:32 | DRG 683 ==
LOC: ED 21:57 → SUATTDRO 06-18 00:25 → 3E 06-18 00:25 → 3W 06-20 14:21 → UNDODISIN 06-20 14:21 → 3W 06-21 19:42

== ENCOUNTER 2020-12-03 09:30 | Inpatient (IN) ==
--- NOTE | 2020-12-03 09:44 | Emergency Department Note ---
Impression & Plan CKD (chronic kidney disease), Catheter-associated urinary tract infection, Headache ED Provider Note NAME: MARGE MERCEDES AGE: 65 SEX: F : 1955 ARRIVES VIA: Ambulance INFORMANT: Patient, ED PROVIDER(S): John Ling MD Chief Complaint: Headache HPI: Patient does present from [facility] due to concern for frontal headache that she states is also aching nature behind the eyes. Patient is not taking anything for it. No recent falls. The patient is virtually wheelchair bedbound. The patient does have weakness of the bilateral lower extremities which is chronic in nature. Patient denies any fevers or chills. Patient denies any recent falls and does not believe that she takes blood thinning m edications. Patient denies any history of stroke but the patient's problem list shows history of CVA. Patient denies any sensory deficits. The patient denies any neck pain or numbness or tingling. Reportedly the patient has had some difficulty with word finding on occasion which was notable to staff as well as the patient beginning yesterday. Patient denies any back pain. The patient does have a chronic Fallon catheter in place. ROS: See HPI for pertinent positives and negatives. A total of 10 systems were reviewed and otherwise negative. Past medical history: See below Surgical history: See below Social history: See below Physical Exam: GENERAL: Morbidly obese, wearing glasses and a mask. EYE EXAM: Normal conjunctiva. PERRL, no anisocoria and EOM's grossly intact w/o pain. Gross vision intact and no visual field deficits. NECK: Supple, no nuchal rigidity, no adenopathy, non-tender. No signs of meningismus. LUNGS: Clear to auscultation. Normal chest wall mechanics. HEART: NSR, no MRG. ABDOMEN: Abdomen soft, non-tender, normo-active bowel sounds, no masses, no rebound or guarding. BACK: No CVA TTP. SKIN: No rashes and no bruising. UPPER EXTREMITIES: Upper extremities are grossly normal. LOWER EXTREMITIES: Grossly normal, no edema. NEURO EXAM: A&O x3, cranial nerves II-XII grossly intact, normal speech, moves all 4 extremities with 3 out of 5 strength in the bilateral lower extremities with 5 out of 5 strength in the right upper, limited range of motion left upper extremity secondary to prior injury. No sensory deficits. Differential diagnoses: Migraine headache, meningitis, sinusitis, CO exposure, ICH, SAH, infection, tumor, headache, sinus thrombosis, arterial dissection, as well as other pathologies. Course: Patient was seen and evaluated the bedside. Full history physical exam was performed. EKG interpreted by me Normal sinus rhythm, rate of 95, normal intervals, normal axis, motion artifact noted but no obvious ST changes. Imaging Studies: See below Cardiac monitoring: An order was placed for continuous cardiac monitoring. The monitor shows a rate of 94 with sinus rhythm. MDM: Patient did present with a frontal headache and associated expressive aphasia. The patient was not present on exam. The patient does have bilateral lower ex tremity weakness which is likely chronic as the patient is virtually bed and wheelchair bound at baseline. Blood work was obtained along with CT of the head. CT angiography's were avoided given the patient's kidney dysfunction which is at baseline. Patient's headache was treated. Patient does have white count 15. Headache was improved. Patient's kidney function again at baseline. Mild hyponatremia. Urinalysis does show the possibility of infection. Given the pattern patient does have a catheter associated UTI did speak with the pharmacist who related the patient does require IV antibiotics and there is no p.o. formulation for home at this time. I did speak with on-call hospitalist Dr. Eagle and the patient was admitted to medicine service. Patient was started on Merrem. Past Med/Surg History Medical History Allergic rhinitis Anemia anemia of chronic disease per assisted records. Most recent H/H WNL 11/24/20. Bunion Chronic pain CKD (chronic kidney disease) stage 3, GFR 30-59 ml/min Acute on chronic kidney injury 06/2020. Depression with anxiety Dermatitis Diabetes mellitus type 2 in obese Most recent A1C 04/2020 8.3% Disorders of magnesium metabolism Review of 2019 records (most recent on file 05/21/20) show Mg WNL Dyslipidemia Extended spectrum beta lactamase (ESBL) resistance Generalized atherosclerosis GERD (gastroesophageal reflux disease) H/O: CVA (cerebrovascular accident) 2013 per records Hammer toe History of COVID-19 05/2020> resolved per [facility] staff History of recurrent UTI (urinary tract infection) Hypokalemia K+ WNL on 11/24/20 labs Incontinence Indwelling Fallon catheter present Lesion of bladder Microscopic hematuria Morbid obesity Muscle spasm Osteomyelitis Overactive bladder Personal history of methicillin resistant Staphylococcus aureus Tinea unguium Ulcerative colitis Uropathy, obstructive Surgical History History of cataract surgery History of cystoscopy stent exchange: 05/05/20: MAC sedation at [facility] stent exchange: 08/17/20: MAC sedation at [facility] Hx of surgical procedure presence of urogenital implants Presence urogenital implant S/P cholecystectomy Family History Mother , age 79 of esophageal cancer Hypertension Father , in mid 60s of an [place] Myocardial infarction Social History Smoking Status: Former smoker Tobacco Type: Cigarettes Age Quit Using Tobacco: 48; Preferred Language: Taiwanese Communication Ability: Effective Visual Impairment: No Limitations Town Marshal Required: No Beliefs That Will Affect Care: None marital status: Current Living Situation: Personal Care Facility Current Living Situation Comment: [facility] Resident current occupational status: retired Feels Safe at Home: Yes Assistive Devices: Mechanical Lift Allergies Allergies Allergy/AdvReac Type Severity Reaction Status Date / Time cefazolin [From Ancef] Allergy Unknown Unknown Verified 12/03/20 13:26 Penicillins Allergy Unknown Unknown Verified 12/03/20 11:22 pregabalin Allergy Unknown Unknown Verified 12/03/20 11:22 tramadol Allergy Unknown Unknown Verified 12/03/20 11:22 ertapenem AdvReac Intermediate Confusion, Verified 12/03/20 11:22 Hallucinations Home Meds Home Medications Medication Instructions Recorded Confirmed acetaminophen [Tylenol] 650 mg PO Q6 PRN MDD 3gm 05/23/18 12/03/20 dicyclomine 10 mg PO Q6H PRN 05/23/18 12/03/20 simvastatin 20 mg PO HS 05/23/18 12/03/20 cholecalciferol (vitamin D3) 5,000 unit PO QAM 09/25/19 12/03/20 [Vitamin D3] escitalopram oxalate 10 mg PO QAM 05/16/20 12/03/20 B-complex with vitamin C 1 tab PO QAM 06/17/20 12/03/20 Stress Formula 1 tab PO QAM 06/17/20 12/03/20 alogliptin 25 mg PO QAM 06/17/20 12/03/20 baclofen 10 mg PO BID 06/17/20 12/03/20 bisacodyl 10 mg IN DIRECTED PRN 07/20/20 12/03/20 Enema 118 ml IN DAILY PRN 11/13/20 12/03/20 Glucagon (HCl) Emergency Kit 1 mg IM UD 11/13/20 12/03/20 bupropion HCl [Wellbutrin XL] 300 mg PO QAM 11/13/20 12/03/20 d-mannose 1,000 mg PO BID 11/13/20 12/03/20 dextrose 1 ea PO UD 11/13/20 12/03/20 diclofenac sodium [Voltaren] 4 g TOPICAL QID PRN 11/13/20 12/03/20 ferrous sulfate 325 mg PO QAM 11/13/20 12/03/20 insulin aspart U-100 [Novolog 3 unit SUBCUT TIDM 11/13/20 12/03/20 U-100 Insulin aspart] melatonin 5 mg PO HS 11/13/20 12/03/20 sennosides-docusate sodium 1 tab PO BID 11/13/20 12/03/20 [Senokot-S] simethicone [Gas-X Extra Strength] 125 mg PO BID PRN 11/13/20 12/03/20 buspirone 15 mg PO BID 11/30/20 12/03/20 hydrocodone-acetaminophen 1 tab PO Q6H PRN 11/30/20 12/03/20 tramadol 50 mg PO BID PRN 11/30/20 12/03/20 acetaminophen [Tylenol Extra 1,000 mg PO Q6H PRN 12/03/20 12/03/20 Strength] duloxetine 60 mg PO QAM 12/03/20 12/03/20 gabapentin 600 mg PO TID 12/03/20 12/03/20 Previous Rx's Medication Instructions Recorded famotidine 20 mg PO BID #60 tab 05/22/20 ciprofloxacin HCl [Cipro] 500 mg PO Q12H #6 tab 11/30/20 Results & Data (ED) Vital Signs Vital Signs - 24 hr 12/03/20 09:57 Temperature 37.5 C Temperature Source Oral Pulse Rate 94 H Pulse Rhythm Regular Pulse Strength Normal Respiratory Rate 22 Respiratory Effort / Characteristics Non-Labored Spontaneous Respiratory Depth Normal Respiratory Pattern Regular Blood Pressure 103/70 Blood Pressure Mean 81 Blood Pressure Position Lying Pulse Oximetry 94 Oxygen Delivery Method Room Air Sepsis Recent Fever Within 48 Hours No Sepsis New/Unexplained Change in Mental Status No Sepsis Action Taken by Nursing No Action Required Home Medications Current Medication List: was personally reviewed by me Laboratory Data Attestation: I reviewed the patient's lab results. Result diagrams: 12/03/20 09:43 12/03/20 09:43 Lab Results 12/03/20 12/03/20 12/03/20 Range/Units 09:43 09:43 09:43 WBC 15.92 H (4.8-10.8) K/uL RBC 3.61 L (4.2-5.4) M/uL Hgb 11.2 L (12.0-16.0) g/dL Hct 33.9 L (37-47) % MCV 93.9 (80-100) fL MCH 31.0 (25-34) pg MCHC 33.0 (32-36) g/dL RDW Std Deviation 50.6 H (36.4-46.3) fL RDW Coeff of Katina 14.7 H (11.5-14.5) % Plt Count 216 (130-400) K/uL MPV 9.8 (7.4-10.4) fL Immature Gran % (Auto) 0.3 % Neut % (Auto) 76.8 % Lymph % (Auto) 11.8 % Weber % (Auto) 10.7 % Eos % (Auto) 0.3 % Baso % (Auto) 0.1 % Neut # (Auto) 12.24 H (1.4-6.5) K/uL Lymph # (Auto) 1.88 (1.2-3.4) K/uL Weber # (Auto) 1.70 H (0.11-0.59) K/uL Eos # (Auto) 0.04 (0-0.5) K/uL Baso # (Auto) 0.02 (0-0.2) K/uL Immature Gran # (Auto) 0.04 H (0.00-0.02) K/uL PT (9.0-12.0) Seconds INR (0.9-1.1) APTT (21.0-31.0) Seconds PTT Ratio Sodium 133 L (136-145) mmol/L Potassium 3.6 (3.5-5.1) mmol/L Chloride 100 (98-107) mmol/L Carbon Dioxide 24 (21-32) mmol/L Anion Gap 9.0 (3-11) BUN 25 H (7-18) mg/dl Creatinine 2.09 H (0.6-1.2) mg/dl Est Cr Clr Drug Dosing 32.5 ml/min Est GFR ( Amer) 28.5 ml/min Est GFR (Non-Af Amer) 24.6 ml/min BUN/Creatinine Ratio 12.1 (10-20) Glucose 127 H (70-99) mg/dl POC Glucose 127 H (70-99) mg/dl Calcium 9.2 (8.5-10.1) mg/dl Magnesium 2.2 (1.8-2.4) mg/dl Total Bilirubin 0.5 (0.2-1) mg/dl AST 29 (15-37) U/L ALT 25 (12-78) U/L Alkaline Phosphatase 95 (45-117) U/L Troponin I < 0.015 (0-0.045) ng/ml Total Protein 8.4 H (6.4-8.2) gm/dl Albumin 2.6 L (3.4-5.0) gm/dl Globulin 5.8 H (2.5-4.0) gm/dl Albumin/Globulin Ratio 0.4 L (0.9-2) Urine Color Urine Appearance (Clear) Urine pH (4.5-7.5) Ur Specific Brandywine (1.000-1.030) Urine Protein (Negative) Urine Glucose (UA) (Negative) Urine Ketones (Negative) Urine Blood (Negative) Urine Nitrite (Negative) Urine Bilirubin (Negative) Urine Urobilinogen (Negative) Ur Leukocyte Esterase (Negative) Urine WBC (Auto) (0-5) /hpf Urine RBC (Auto) (0-4) /hpf U Hyaline Cast (Auto) (0-5) /lpf U Epithel Cells (Auto) (0-5) /lpf Urine Bacteria (Auto) (Negative) Ur Renal Epithelial Cell (0-5) /lpf Granular Casts (0) /lpf Urine Yeast 05/20/21 05/20/21 Range/Units 09:50 11:09 WBC (4.8-10.8) K/uL RBC (4.2-5.4) M/uL Hgb (12.0-16.0) g/dL Hct (37-47) % MCV (80-100) fL MCH (25-34) pg MCHC (32-36) g/dL RDW Std Deviation (36.4-46.3) fL RDW Coeff of Katina (11.5-14.5) % Plt Count (130-400) K/uL MPV (7.4-10.4) fL Immature Gran % (Auto) % Neut % (Auto) % Lymph % (Auto) % Weber % (Auto) % Eos % (Auto) % Baso % (Auto) % Neut # (Auto) (1.4-6.5) K/uL Lymph # (Auto) (1.2-3.4) K/uL Weber # (Auto) (0.11-0.59) K/uL Eos # (Auto) (0-0.5) K/uL Baso # (Auto) (0-0.2) K/uL Immature Gran # (Auto) (0.00-0.02) K/uL PT 11.3 (9.0-12.0) Seconds INR 1.1 (0.9-1.1) APTT 30.3 (21.0-31.0) Seconds PTT Ratio 1.2 Sodium (136-145) mmol/L Potassium (3.5-5.1) mmol/L Chloride (98-107) mmol/L Carbon Dioxide (21-32) mmol/L Anion Gap (3-11) BUN (7-18) mg/dl Creatinine (0.6-1.2) mg/dl Est Cr Clr Drug Dosing ml/min Est GFR ( Amer) ml/min Est GFR (Non-Af Amer) ml/min BUN/Creatinine Ratio (10-20) Glucose (70-99) mg/dl POC Glucose (70-99) mg/dl Calcium (8.5-10.1) mg/dl Magnesium (1.8-2.4) mg/dl Total Bilirubin (0.2-1) mg/dl AST (15-37) U/L ALT (12-78) U/L Alkaline Phosphatase (45-117) U/L Troponin I (0-0.045) ng/ml Total Protein (6.4-8.2) gm/dl Albumin (3.4-5.0) gm/dl Globulin (2.5-4.0) gm/dl Albumin/Globulin Ratio (0.9-2) Urine Color Yellow Urine Appearance Turbid A (Clear) Urine pH 6.0 (4.5-7.5) Ur Specific Brandywine 1.010 (1.000-1.030) Urine Protein 2+ H (Negative) Urine Glucose (UA) Negative (Negative) Urine Ketones Negative (Negative) Urine Blood 3+ H (Negative) Urine Nitrite Negative (Negative) Urine Bilirubin Negative (Negative) Urine Urobilinogen Negative (Negative) Ur Leukocyte Esterase 3+ H (Negative) Urine WBC (Auto) >30 H (0-5) /hpf Urine RBC (Auto) 10-30 H (0-4) /hpf U Hyaline Cast (Auto) >30 H (0-5) /lpf U Epithel Cells (Auto) >30 H (0-5) /lpf Urine Bacteria (Auto) 3+ H (Negative) Ur Renal Epithelial Cell 0-5 (0-5) /lpf Granular Casts 1-5 H (0) /lpf Urine Yeast Not Reportable Administered Medications Magnesium Sulfate/Dextrose (Magnesium Sulfate / D5w) 1 gm in 100 mls @ 50 mls/hr IV ONE ONE Stop: 12/03/20 14:16 Last Admin: 12/03/20 12:45 Dose: 50 mls/hr Documented by: [id number] Discontinued Medications Acetaminophen (Acetaminophen 500 Mg Tab) 1,000 mg PO NOW STA Stop: 12/03/20 12:18 Last Admin: 12/03/20 12:46 Dose: 1,000 mg Documented by: [id number] Sodium Chloride (Nss 1000ml) 500 mls @ 999 mls/hr IV .Q31M ONE Stop: 12/03/20 12:47 Last Admin: 12/03/20 12:45 Dose: 999 mls/hr Documented by: [id number] Ondansetron HCl (Ondansetron Inj 2 Mg/Ml 2 Ml Vial) 4 mg IV NOW STA Stop: 12/03/20 12:18 Last Admin: 12/03/20 12:45 Dose: 4 mg Documented by: [id number] Imaging Data Radiologist's Impression: Head CT 12/03/20 09:59 CT SCAN OF THE BRAIN WITHOUT IV CONTRAST CLINICAL HISTORY: Strokelike symptoms. COMPARISON STUDY: CT of the brain dated 05/17/2020. TECHNIQUE: Unenhanced axial CT scan of the brain is performed from the vertex to the skull base. A dose lowering technique was utilized adhering to the principles of ALARA. CT DOSE: 614.27 mGy.cm FINDINGS: Brain parenchyma: There are age-related involutional changes noting mild subcortical and periventricular microangiopathic change. There is no hemorrhage, mass effect, or evidence of acute territorial ischemia by CT criteria. Perez- white matter differentiation is preserved. No extra-axial fluid collection is seen. Ventricles, sulci, cisterns: Prominent secondary to involutional change. Intracranial vasculature: There is atherosclerotic calcification of the ca[place] us carotid and vertebral arteries. Calvarium: Unremarkable. Sinuses and mastoids: The paranasal sinuses are clear. The mastoid air cells are well pneumatized. Orbits: The bony orbits are grossly intact. There are bilateral ocular lens implants. IMPRESSION: There is no hemorrhage, mass effect, or evidence of acute territorial ischemia by CT criteria. ACT 112: Negative or not required by law. Electronically signed by: Tl Jolley M.D. 12/03/2020 11:44 AM Discharge Plan Visit Data Chief Complaint: Headache Stated Complaint: EXPRESSIVE APHASIA ED Provider: John Ling Discharge Problem: CKD (chronic kidney disease), Catheter-associated urinary tract infection, Headache Forms Stand Alone Forms: [email or web address] Prescriptions Prescriptions: No Action escitalopram oxalate 10 mg tablet 10 mg PO QAM RF: 0 famotidine 20 mg Tablet 20 mg PO BID Qty: 60 RF: 0 alogliptin 25 mg Tablet 25 mg PO QAM RF: 0 Stress Formula Tablet 1 tab PO QAM RF: 0 B-complex with vitamin C Tablet 1 tab PO QAM RF: 0 baclofen 10 mg tablet 10 mg PO BID RF: 0 bisacodyl 10 mg Suppository 10 mg IN DIRECTED PRN (Reason: Constipation) RF: 0 acetaminophen [Tylenol] 325 mg Tablet 650 mg PO Q6 MDD 3gm PRN (Reason: temp>101) RF: 0 simvastatin 20 mg Tablet 20 mg PO HS RF: 0 dicyclomine 10 mg Capsule 10 mg PO Q6H PRN (Reason: abdominal cramping) RF: 0 cholecalciferol (vitamin D3) [Vitamin D3] 125 mcg (5,000 unit) Tablet 5,000 unit PO QAM RF: 0 gabapentin 600 mg Tablet 600 mg PO TID RF: 0 acetaminophen [Tylenol Extra Strength] 500 mg Tablet 1,000 mg PO Q6H PRN (Reason: pain lever: 1-4) RF: 0 duloxetine 60 mg Capsule,Delayed Release(Dr/Ec) 60 mg PO QAM RF: 0 dextrose 40 % Gel 1 ea PO UD RF: 0 simethicone [Gas-X Extra Strength] 125 mg Capsule 125 mg PO BID PRN (Reason: Dyspepsia) RF: 0 insulin aspart U-100 [Novolog U-100 Insulin aspart] 100 unit/mL Solution 3 unit SUBCUT TIDM RF: 0 ferrous sulfate 325 mg (65 mg iron) Tablet 325 mg PO QAM RF: 0 Enema 19-7 gram/118 mL Enema 118 ml IN DAILY PRN (Reason: Constipation) RF: 0 bupropion HCl [Wellbutrin XL] 300 mg Tablet Extended Release 24 Hr 300 mg PO QAM RF: 0 diclofenac sodium [Voltaren] 1 % Gel 4 g TOPICAL QID PRN (Reason: Pain) RF: 0 melatonin 5 mg Tablet 5 mg PO HS RF: 0 Glucagon (HCl) Emergency Kit 1 mg Recon Soln 1 mg IM UD RF: 0 d-mannose 500 mg Capsule 1,000 mg PO BID RF: 0 sennosides-docusate sodium [Senokot-S] 8.6-50 mg tablet 1 tab PO BID RF: 0 buspirone 15 mg Tablet 15 mg PO BID RF: 0 ciprofloxacin HCl [Cipro] 500 mg tablet 500 mg PO Q12H Qty: 6 RF: 0 hydrocodone-acetaminophen 5-325 mg Tablet 1 tab PO Q6H PRN (Reason: Pain) RF: 0 tramadol 50 mg Tablet 50 mg PO BID PRN (Reason: Pain level 5-10) RF: 0 Discharge Problem: CKD (chronic kidney disease) Qualifiers: Chronic kidney disease stage: stage 4 (severe) Qualified Code(s): N18.4 - Chronic kidney disease, stage 4 (severe) Catheter-associated urinary tract infection Qualifiers: Indwelling urinary catheter type: indwelling urethral catheter Encounter type: initial encounter Qualified Code(s): T83.511A - Infection and inflammatory r eaction due to indwelling urethral catheter, initial encounter Headache Qualifiers: Headache type: unspecified Headache chronicity pattern: acute headache Intractability: not intractable Qualified Code(s): R51.9 - Headache, unspecified
[2020-12-03 10:12] LABS: Basophils # (auto) 0.02 K/uL (0-0.2); Basophils % (auto) 0.1 %; Eosinophils # (auto) 0.04 K/uL (0-0.5); Eosinophils % (auto) 0.3 %; Hematocrit (blood only) 33.9 % (37-47); Hemoglobin 11.2 g/dL (12.0-16.0); Immature Granulocytes # (auto) 0.04 K/uL (0.00-0.02); Immature Granulocytes % (auto) 0.3 %; Lymphocytes # (auto) 1.88 K/uL (1.2-3.4); Lymphocytes % (auto) 11.8 %; Mean Corpuscular Volume 93.9 fL (80-100); Mean Platelet Volume 9.8 fL (7.4-10.4); Monocytes % (auto) 10.7 %; Neutrophils # (auto) 12.24 K/uL (1.4-6.5); Neutrophils % (auto) 76.8 %; Platelet Count 216 K/uL (130-400); RDW Coefficient of Variation 14.7 % (11.5-14.5); RDW Standard Deviation 50.6 fL (36.4-46.3); Red Blood Count 3.61 M/uL (4.2-5.4); White Blood Count 15.92 K/uL (4.8-10.8)
[2020-12-03 10:24] LABS: Chloride 100 mmol/L (98-107); Potassium 3.6 mmol/L (3.5-5.1); Sodium 133 mmol/L (136-145)
[2020-12-03 10:48] LABS: Albumin Level 2.6 gm/dl (3.4-5.0); BUN Creatinine Ratio 12.1 (10-20); Blood Urea Nitrogen 25 mg/dl (7-18); Calcium 9.2 mg/dl (8.5-10.1); Carbon Dioxide 24 mmol/L (21-32); Creatinine Clr Calc Pharmacy 32.5 ml/min; Est GFR (African American) 28.5 ml/min; Est GFR (Non-African American) 24.6 ml/min; Glucose 127 mg/dl (70-99); Magnesium 2.2 mg/dl (1.8-2.4)
[2020-12-03 10:52] LABS: Alanine Aminotransferase 25 U/L (12-78); Albumin Globulin Ratio 0.4 (0.9-2); Alkaline Phosphatase 95 U/L (45-117); Aspartate Aminotransferase 29 U/L (15-37); Bilirubin,Total 0.5 mg/dl (0.2-1); Globulin 5.8 gm/dl (2.5-4.0); Total Protein 8.4 gm/dl (6.4-8.2); Troponin I < 0.015 ng/ml (0-0.045)
[2020-12-03 11:27] LABS: INR 1.1 (0.9-1.1); Partial Thromboplastin Ratio 1.2; Partial Thromboplastin Time 30.3 Seconds (21.0-31.0); Prothrombin Time 11.3 Seconds (9.0-12.0)
--- NOTE | 2020-12-03 11:45 | CT Scan Report ---
CT SCAN OF THE BRAIN WITHOUT IV CONTRAST CLINICAL HISTORY: Strokelike symptoms. COMPARISON STUDY: CT of the brain dated 05/17/2020. TECHNIQUE: Unenhanced axial CT scan of the brain is performed from the vertex to the skull base. A do se lowering technique was utilized adhering to the principles of ALARA. CT DOSE: 614.27 mGy.cm FINDINGS: Brain parenchyma: There are age-related involutional changes noting mild subcortical and periventric ular microangiopathic change. There is no hemorrhage, mass effect, or evidence of acute territorial i schemia by CT criteria. Perez-white matter differentiation is preserved. No extra-axial fluid collecti on is seen. Ventricles, sulci, cisterns: Prominent secondary to involutional change. Intracranial vasculature: There is atherosclerotic calcification of the cavernous carotid and vertebr al arteries. Calvarium: Unremarkable. Sinuses and mastoids: The paranasal sinuses are clear. The mastoid air cells are well pneumatized. Orbits: The bony orbits are grossly intact. There are bilateral ocular lens implants. IMPRESSION: There is no hemorrhage, mass effect, or evidence of acute territorial ischemia by CT crit erarabella. ACT 112: Negative or not required by law. Electronically signed by: Tl Jolley M.D. 12/03/2020 11:44 AM
[2020-12-03 12:07] LABS: Appearance Urine Turbid (Clear); Bacteria Urine Automated 3+ (Negative); Bilirubin Urine Negative (Negative); Blood Urine 3+ (Negative); Color Urine Yellow; Epithelial Cell Urine Auto >30 /lpf (0-5); Glucose Urine UA Negative (Negative); Ketones Urine Negative (Negative); Leukocyte Esterase Urine 3+ (Negative); Nitrite Urine Negative (Negative); Protein Urine 2+ (Negative); Urobilinogen Urine Negative (Negative); WBC Urine Automated >30 /hpf (0-5)
[2020-12-03] MEDS ORDERED: MAGNESIUM SULFATE / D5W 1 GM/100 ML BAG IV ONE (12:17)
[2020-12-03] MEDS ORDERED: ACETAMINOPHEN 500 MG TAB PO STA (12:17)
[2020-12-03] MEDS ORDERED: ONDANSETRON INJ 2 MG/ML 2 ML VIAL IV STA (12:17)
[2020-12-03] MEDS ORDERED: SODIUM CHLORIDE 0.9% 1000ML 500 ML IV ONE (12:17)
[2020-12-03 12:26] LABS: Cast Urine Automated >30 /lpf (0-5); Renal Epithelial Cells Urine 0-5 /lpf (0-5)
[2020-12-03] MEDS ORDERED: MEROPENEM 500 MG in SYRINGE 0 ML IV ONE (14:00)
--- NOTE | 2020-12-03 14:36 | History & Physical Report ---
Date of Service December 03, 2020 Assessment & Plan (1) Catheter-associated urinary tract infection: Patient presents with intermittent ill described neurological symptoms felt possibly to be metabolic encephalopathy from urinary tract infection present on admission associated with a chronic indwelling Fallon catheter. Patient most recently had a retrograde pyelogram on November 30 where she had bilateral ureteral stent placed. Uncertain will be that she is transient bacteremic from this event Dr. Toney was urologist at this time. Even concerns for previous ESBL E. coli patient is placed on meropenem as there are no good oral alternatives based upon her previous cultures. Certainly cultures were obtained both blood and urine and determination of duration of treatment and antibiotic choice will be based upon the results of those (2) Weakness: Patient has persistent weakness and as mentioned in the HPI is typically wheelchair-bound. (3) CKD (chronic kidney disease) stage 3, GFR 30-59 ml/min: She has acute on chronic kidney injury with a creatinine 2.09 typically 1.7 range. This is likely somewhat related to her recent worsening of her illness. We will hydrate her and recheck labs in the morning. She previously has been seen by nephrology, Dr. Vela who feels this is influenced by her diabetes however she is intolerant of HAMILTON inhibitor due to lower blood pressure (4) Diabetes mellitus type 2 in obese: Patient typically takes alogliptin and sliding scale insulin to control her glucose will check an A1c and have on basal bolus insulin while in the hospital (5) H/O: CVA (cerebrovascular accident): This is by her history, noncontrast CT scan of the head performed on admission does not show any acute event nor does it show any previous old CVA (6) DVT prophylaxis: Chemoprophylaxis will be ordered for DVT prophylaxis (7) COVID-19: Covid was last + May 21, 2020 History of Present Illness Primary Care Provider: [facility] Patient is a resident from [facility] due to concern for frontal headache possible concern for aphasia. No recent falls. The patient is typically wheelchair bedbound. The patient does have weakness of the bilateral lower extremities which is chronic in nature. Patient denies any fevers or chills. Patient has a history of CVA. Patient denies any sensory deficits. The patient denies any neck pain or numbness or tingling. Reportedly the patient has had some difficulty with word finding on occasion which was notable to staff as well as the patient beginning yesterday. Patient denies any back pain. The patient does have a chronic Fallon catheter in place. She is a markedly abnormal urinalysis and a previous history of ESBL in her urine and MRSA in her wound. She is asked to be observed in our facility for determination if this is metabolic encephalopathy from urinary tract infection present on admission that is associated with the indwelling chronic Fallon catheter Spite some listed allergy to ertapenem patient was given meropenem in the ER which and tolerated it well she is also given meropenem on previous admissions Allergies Allergy/AdvReac Type Severity Reaction Status Date / Time cefazolin [From Anc] Allergy Unknown Unknown Verified 12/03/20 13:26 Penicillins Allergy Unknown Unknown Verified 12/03/20 11:22 pregabalin Allergy Unknown Unknown Verified 12/03/20 11:22 tramadol Allergy Unknown Unknown Verified 12/03/20 11:22 ertapenem AdvReac Intermediate Confusion, Verified 12/03/20 11:22 Hallucinations Home Medications Medication Instructions Recorded Confirmed Type acetaminophen [Tylenol] 650 mg PO Q6 PRN MDD 3gm 05/23/18 12/03/20 History dicyclomine 10 mg PO Q6H PRN 05/23/18 12/03/20 History simvastatin 20 mg PO HS 05/23/18 12/03/20 History cholecalciferol (vitamin D3) 5,000 unit PO QAM 09/25/19 12/03/20 History [Vitamin D3] escitalopram oxalate 10 mg PO QAM 05/16/20 12/03/20 History famotidine 20 mg PO BID #60 tab 05/22/20 12/03/20 Rx B-complex with vitamin C 1 tab PO QAM 06/17/20 12/03/20 History Stress Formula 1 tab PO QAM 06/17/20 12/03/20 History alogliptin 25 mg PO QAM 06/17/20 12/03/20 History baclofen 10 mg PO BID 06/17/20 12/03/20 History bisacodyl 10 mg IL DIRECTED PRN 07/20/20 12/03/20 History Enema 118 ml IL DAILY PRN 11/13/20 12/03/20 History Glucagon (HCl) Emergency Kit 1 mg IM UD 11/13/20 12/03/20 History bupropion HCl [Wellbutrin XL] 300 mg PO QAM 11/13/20 12/03/20 History d-mannose 1,000 mg PO BID 11/13/20 12/03/20 History dextrose 1 ea PO UD 11/13/20 12/03/20 History diclofenac sodium [Voltaren] 4 g TOPICAL QID PRN 11/13/20 12/03/20 History ferrous sulfate 325 mg PO QAM 11/13/20 12/03/20 History insulin aspart U-100 [Novolog 3 unit SUBCUT TIDM 11/13/20 12/03/20 History U-100 Insulin aspart] melatonin 5 mg PO HS 11/13/20 12/03/20 History sennosides-docusate sodium 1 tab PO BID 11/13/20 12/03/20 History [Senokot-S] simethicone [Gas-X Extra Strength] 125 mg PO BID PRN 11/13/20 12/03/20 History buspirone 15 mg PO BID 11/30/20 12/03/20 History ciprofloxacin HCl [Cipro] 500 mg PO Q12H #6 tab 11/30/20 12/03/20 Rx hydrocodone-acetaminophen 1 tab PO Q6H PRN 11/30/20 12/03/20 History tramadol 50 mg PO BID PRN 11/30/20 12/03/20 History acetaminophen [Tylenol Extra 1,000 mg PO Q6H PRN 12/03/20 12/03/20 History Strength] duloxetine 60 mg PO QAM 12/03/20 12/03/20 History gabapentin 600 mg PO TID 12/03/20 12/03/20 History Past Med/Surg History Medical History Allergic rhinitis Anemia [facility]. Most recent H/H WNL 11/24/20. Bunion Chronic pain CKD (chronic kidney disease) stage 3, GFR 30-59 ml/min Acute on chronic kidney injury 06/2020. Depression with anxiety Dermatitis Diabetes mellitus type 2 in obese Most recent A1C 04/2020 8.3% Disorders of magnesium metabolism Review of 2019 records (most recent on file 05/21/20) show Mg WNL Dyslipidemia Extended spectrum beta lactamase (ESBL) resistance Generalized atherosclerosis GERD (gastroesophageal reflux disease) H/O: CVA (cerebrovascular accident) 2013 per records Hammer toe History of COVID-19 05/2020> resolved per [facility] staff History of recurrent UTI (urinary tract infection) Hypokalemia K+ WNL on 11/24/20 labs Incontinence Indwelling Fallon catheter present Lesion of bladder Microscopic hematuria Morbid obesity Muscle spasm Osteomyelitis Overactive bladder Personal history of methicillin resistant Staphylococcus aureus Tinea unguium Ulcerative colitis Uropathy, obstructive Surgical History History of cataract surgery History of cystoscopy stent exchange: 05/05/20: MAC sedation at [facility] stent exchange: 08/17/20: MAC sedation at [facility] Hx of surgical procedure presence of urogenital implants Presence urogenital implant S/P cholecystectomy Family History Mother , age 79 of esophageal cancer Hypertension Father , in mid 60s of an PR Myocardial infarction Social History Smoking Status: Never smoker Tobacco Type: Cigarettes Age Quit Using Tobacco: 48; Hx Alcohol Use: No Hx Substance Use: No Preferred Language: Wolof Communication Ability: Effective Visual Impairment: No Limitations Activity Therapy Teacher Required: No Beliefs That Will Affect Care: None marital status: Current Living Situation: Retirement Current Living Situation Comment: [facility] Resident current occupational status: retired Other Information That Helps Us Care for You: No Feels Safe at Home: Yes Assistive Devices: Glasses Review of Systems Review of Systems: Mild distress and fatigue no headache, blurry or double vision no speech or swallowing issues no chest pain, pressure or palpitations no shortness of breath, cough or wheezes no abdominal pain, nausea or vomiting, diarrhea or constipation no dysuria, hematuria or frequency no focal joint pain or swelling no back pain, CVA tenderness or radicular pain no bruising, bleeding or rashes no focal signs of weakness or numbness or altered sensation no complaints of anxiety or depression.. Physical Exam 2 Physical Exam: The patient appeared well nourished and normally developed. Vital signs as documented. Head exam is normocephalic atraumatic Neck is without JVD, thyromegaly, or carotid bruits. Lungs are clear to auscultation, no focal loss of breath sounds Cardiac exam, Rhythm is regular.. No murmurs, rubs or gallops. Abdominal exam reveals normal bowel sounds, soft non tender, no masses Extremities are nonedematous and both pedal pulses are present Neurologic exam is alert and oriented, no focal loss of strength or sensation Skin is without bruises or rashes Psychologically is without concerns for anxiety or depression Results & Data Results & Data ([facility]) Vital Signs (Past 12 Hours) Vital Signs Temp Pulse Resp BP Pulse Ox 12/03/20 14:01 97 H 16 105/69 95 12/03/20 13:30 90 19 117/61 96 12/03/20 13:00 89 18 112/70 92 12/03/20 12:30 98 H 20 112/71 91 12/03/20 12:00 96 H 18 109/62 91 12/03/20 11:07 96 H 19 100/67 93 12/03/20 09:57 99.5 F 94 H 22 103/[address] 12/03/20 09:59 CT SCAN OF THE BRAIN WITHOUT IV CONTRAST CLINICAL HISTORY: Strokelike symptoms. COMPARISON STUDY: CT of the brain dated 05/17/2020. TECHNIQUE: Unenhanced axial CT scan of the brain is performed from the vertex to the skull base. A dose lowering technique was utilized adhering to the principles of ALARA. CT DOSE: 614.27 mGy.cm FINDINGS: Brain parenchyma: There are age-related involutional changes noting mild subcortical and periventricular microangiopathic change. There is no hemorrhage, mass effect, or evidence of acute territorial ischemia by CT criteria. Perez- white matter differentiation is preserved. No extra-axial fluid collection is seen. Ventricles, sulci, cisterns: Prominent secondary to involutional change. Intracranial vasculature: There is atherosclerotic calcification of the cavernous carotid and vertebral arteries. Calvarium: Unremarkable. Sinuses and mastoids: The paranasal sinuses are clear. The mastoid air cells are well pneumatized. Orbits: The bony orbits are grossly intact. There are bilateral ocular lens implants. IMPRESSION: There is no hemorrhage, mass effect, or evidence of acute territ orial ischemia by CT criteria. Electronically signed by: Tl Jolley M.D. 12/03/2020 11:44 AM\ ECG SHOWS NSR WITHOUT ACUTE CHANGES PG Care Time/CCT Total # of Minutes Spent Total Time Spent with Patient: Total time spent is greater than 50% in coordination of care (as documented) at patient's floor/unit and/or counseling patient: Coding Level of Care Code 42384 Initial Inpt Care Lvl 3 Diagnoses Catheter-associated urinary tract infection T83.511A; N39.0 Encounter type: initial encounter Indwelling urinary catheter type: indwelling urethral catheter Weakness R53.1 CKD (chronic kidney disease) stage 3, GFR 30-59 ml/min N18.30 Diabetes mellitus type 2 in obese E11.69; E66.9 H/O: CVA (cerebrovascular accident) Z86.73 DVT prophylaxis Z29.9 COVID-19 U07.1 (1) Catheter-associated urinary tract infection Encounter type: initial encounter Indwelling urinary catheter type: indwelling urethral catheter Qualified Code(s): T83.511A - Infection and inflammatory reaction due to indwelling urethral catheter, initial encounter; N39.0 - Urinary tract infection, site not specified
[2020-12-03] MEDS ORDERED: GLUCOSE 10 TABS/TUBE PO PRN (17:22)
[2020-12-03] MEDS ORDERED: ONDANSETRON INJ 2 MG/ML 2 ML VIAL IV PRN (17:22)
[2020-12-03] MEDS ORDERED: traMADol HCL 50 MG TABLET PO PRN (17:22)
[2020-12-03] MEDS ORDERED: GLUCOSE 40% GEL 15 GM TUBE PO PRN (17:22)
[2020-12-03] MEDS ORDERED: ACETAMINOPHEN 500 MG TAB PO PRN (17:22)
[2020-12-03] MEDS ORDERED: CARBOHYDRATES FOR HYPOGLYCEMIA PO PRN (17:22)
[2020-12-03] MEDS ORDERED: HYDROCODONE/ACETAMOPHEN 5/325MG TAB PO PRN (17:22)
[2020-12-03] MEDS ORDERED: GLUCAGON FOR INJ 1 MG VIAL SQ PRN (17:22)
[2020-12-03] MEDS ORDERED: MEROPENEM CONSULT ACITVE PRN (17:22)
[2020-12-03] MEDS ORDERED: DEXTROSE 50% 50 ML SYRINGE IV PRN (17:22)
[2020-12-03] MEDS ORDERED: PHARMACY GLYCEMIC MGMT CONSULT SCH (18:10)
[2020-12-03] MEDS ORDERED: SODIUM CHLORIDE 0.9% 1000ML 1,000 ML IV SCH (18:20)
[2020-12-03] MEDS: INSULIN ASPART 100 UNITS/ML 3 ML PEN SQ SCH ×2 (18:28→20:51)
--- NOTE | 2020-12-03 18:40 | Electrocardiogram Report ---
Test Reason : Blood Pressure : / mmHG Vent. Rate : 095 BPM Atrial Rate : 095 BPM P-R Int : 156 ms QRS Dur : 088 ms QT Int : 358 ms P-R-T Axes : 059 067 068 degrees QTc Int : 449 ms Normal sinus rhythm Normal ECG When compared with ECG of 17-JUN-2020 22:03, No significant change was found Confirmed by Dank Hagen ([id number]) on 12/03/2020 6:40:15 PM Referred By: [facility] Confirmed By:Raj Hagen
[2020-12-03] MEDS: ENOXAPARIN INJ 40 MG/0.4 ML SYR SQ SCH (19:22)
[2020-12-03] MEDS: SIMVASTATIN 20 MG TAB PO SCH (20:52)
[2020-12-03] MEDS: MELATONIN 3 MG TAB PO SCH (20:52)
[2020-12-03] MEDS: busPIRone 15 MG TAB PO SCH (20:53)
[2020-12-03] MEDS: GABAPENTIN 600 MG TAB PO SCH (20:53)
[2020-12-03] MEDS: DOCUSATE SODIUM/SENNA 50/8.6MG TAB PO SCH (20:54)
[2020-12-03] MEDS: FAMOTIDINE 20 MG TAB PO SCH (20:54)
[2020-12-04] MEDS: MEROPENEM 500 MG in SYRINGE 0 ML IV SCH ×3 (02:35→21:18)
[2020-12-04] MEDS: ENOXAPARIN INJ 40 MG/0.4 ML SYR SQ SCH ×2 (06:20→17:31)
[2020-12-04 06:21] LABS: Estimated Average Glucose 140 mg/dl; Hemoglobin A1C 6.5 % (4.5-5.6)
[2020-12-04 06:34] LABS: BUN Creatinine Ratio 13.6 (10-20); Calcium 8.6 mg/dl (8.5-10.1); Creatinine Clr Calc Pharmacy 36.5 ml/min; Est GFR (African American) 30.2 ml/min; Est GFR (Non-African American) 26.1 ml/min; Potassium 3.5 mmol/L (3.5-5.1)
[2020-12-04] MEDS: INSULIN ASPART 100 UNITS/ML 3 ML PEN SQ SCH ×4 (09:10→21:54)
[2020-12-04] MEDS: FERROUS SULFATE 325 MG TAB PO SCH (09:12)
[2020-12-04] MEDS: DOCUSATE SODIUM/SENNA 50/8.6MG TAB PO SCH ×2 (09:12→21:12)
[2020-12-04] MEDS: FAMOTIDINE 20 MG TAB PO SCH ×2 (09:12→21:12)
[2020-12-04] MEDS: ESCITALOPRAM OXALATE 10 MG TAB PO SCH (09:12)
[2020-12-04] MEDS: busPIRone 15 MG TAB PO SCH ×2 (09:13→21:11)
[2020-12-04] MEDS: DULoxetine HCL 60 MG CAP PO SCH (09:13)
[2020-12-04] MEDS: GABAPENTIN 600 MG TAB PO SCH ×3 (09:13→21:12)
[2020-12-04] MEDS: CHOLECALCIFEROL 1,000 UNITS 25 MCG TAB PO SCH (09:13)
[2020-12-04] MEDS: buPROPion XL 300 MG TABCR PO SCH (09:14)
--- NOTE | 2020-12-04 09:45 | Pharmacy Report ---
Pharmacy Glycemic Short Note 2 - Date of Service December 04, 2020 - Glycemic Short BSG Results (Last 24 hours): 12/03/20 12/03/20 12/03/20 09:43 09:43 20:07 Glucose 127 H POC Glucose 127 H 148 H 12/04/20 12/04/20 05:27 07:55 Glucose 108 H POC Glucose 113 H OUTPATIENT ANTIDIABETIC REGIMEN: * Novolog 3 units TIDM * Alogliptin 25 mg once daily * A1c: 6.5% 12/04/20 ASSESSMENT: * Patient well controlled receiving only 1 unit of NovoLog yesterday. Will continue with conservative NovoLog scale only for now. Patient is tolerating a diet. PLAN FOR INPATIENT GLYCEMIC CONTROL: * Hold outpatient oral diabetes medications * Basal insulin * None at this time * Bolus insulin * NovoLog per scale ACHS or Q6hrs while NPO * Goal Range: Low 110 mg/dL - High 140 mg/dL * Correction Factor: 45 mg/dL/unit * Nutritional / Prandial insulin per carb ratio of 1 unit per 15 grams CHO consumed
[2020-12-04] MEDS: MELATONIN 3 MG TAB PO SCH (21:13)
[2020-12-04] MEDS: SIMVASTATIN 20 MG TAB PO SCH (21:14)
--- NOTE | 2020-12-04 23:46 | Hospitalist Progress Note ---
Date of Service December 04, 2020 Assessment & Plan (1) Catheter-associated urinary tract infection: Patient presents with intermittent ill described neurological symptoms felt possibly to be metabolic encephalopathy from urinary tract infection present on admission associated with a chronic indwelling Fallon catheter. Patient most recently had a retrograde pyelogram on November 30 where she had bilateral ureteral stent placed. Uncertain will be that she is transient bacteremic from this event Dr. Toney was urologist at this time. Even concerns for previous ESBL E. coli patient is placed on meropenem as there are no good oral alternatives based upon her previous cultures. Certainly cultures were obtained both blood and urine and determination of duration of treatment and antibiotic choice will be based upon the results of those On 12/04 Awaiting culture results. continue current abx (2) Weakness: Patient has persistent weakness and as mentioned in the HPI is typically wheelchair-bound. (3) CKD (chronic kidney disease) stage 3, GFR 30-59 ml/min: She has acute on chronic kidney injury with a creatinine 2.09 typically 1.7 range. This is likely somewhat related to her recent worsening of her il lness. We will hydrate her and recheck labs in the morning. She previously has been seen by nephrology, Dr. Vela who feels this is influenced by her diabetes however she is intolerant of HAMILTON inhibitor due to lower blood pressure (4) Diabetes mellitus type 2 in obese: Patient typically takes alogliptin and sliding scale insulin to control her glucose will check an A1c and have on basal bolus insulin while in the hospital (5) H/O: CVA (cerebrovascular accident): This is by her history, noncontrast CT scan of the head performed on admission does not show any acute event nor does it show any previous old CVA (6) DVT prophylaxis: Chemoprophylaxis will be ordered for DVT prophylaxis (7) COVID-19: Covid was last + May 21, 2020 Admission and Anticipated Discharge Date Admission Date: December 03, 2020 Subjective 65 YO F reports no new symptoms. Review of Systems Review of Systems: Mild distress and fatigue no headache, blurry or double vision no speech or swallowing issues no chest pain, pressure or palpitations no shortness of breath, cough or wheezes no abdominal pain, nausea or vomiting, diarrhea or constipation no dysuria, hematuria or frequency no focal joint pain or swelling no back pain, CVA tenderness or radicular pain no bruising, bleeding or rashes no focal signs of weakness or numbness or altered sensation no complaints of anxiety or depression.. Physical Exam Physical Exam: The patient appeared well nourished and normally developed. Head exam is normocephalic atraumatic Neck is without JVD, thyromegaly, or carotid bruits. Lungs are clear to auscultation, no focal loss of breath sounds Cardiac exam, Rhythm is regular. Abdominal exam reveals normal bowel sounds, soft non tender, no masses Extremities are nonedematous and both pedal pulses are present Neurologic exam is alert and oriented, no focal loss of strength or sensation Results & Data Results & Data ([facility]) Vital Signs (Past 12 Hours) Vital Signs Temp Pulse Pulse Resp BP BP Pulse Ox 12/04/20 19:34 37.0 C 90 20 114/72 95 12/04/20 16:00 87 12/04/20 15:52 37 C 78 18 125/76 91 PG Care Time/CCT Total # of Minutes Spent Total Time Spent with Patient: Total time spent is greater than 50% in coordination of care (as documented) at patient's floor/unit and/or counseling patient: Coding Level of Care Code 51866 Subseq Hosp Care Lvl 3 Diagnoses Catheter-associated urinary tract infection T83.511A; N39.0 Encounter type: initial encounter Indwelling urinary catheter type: indwelling urethral catheter Weakness R53.1 CKD (chronic kidney disease) stage 3, GFR 30-59 ml/min N18.30 Diabetes mellitus type 2 in obese E11.69; E66.9 H/O: CVA (cerebrovascular accident) Z86.73 DVT prophylaxis Z29.9 COVID-19 U07.1 (1) Catheter-associated urinary tract infection Encounter type: initial encounter Indwelling urinary catheter type: indwelling urethral catheter Qualified Code(s): T83.511A - Infection and inflammatory reaction due to indwelling urethral catheter, initial encounter; N39.0 - Urinary tract infection, site not specified
[2020-12-05] MEDS: ENOXAPARIN INJ 40 MG/0.4 ML SYR SQ SCH (06:15)
[2020-12-05 07:22] LABS: Hematocrit (blood only) 31.4 % (37-47); Hemoglobin 10.3 g/dL (12.0-16.0); Mean Corpuscular Hemoglobin 31.5 pg (25-34); Mean Corpuscular Hgb Conc 32.8 g/dL (32-36); Platelet Count 231 K/uL (130-400); RDW Standard Deviation 52.3 fL (36.4-46.3); Red Blood Count 3.27 M/uL (4.2-5.4); White Blood Count 8.15 K/uL (4.8-10.8)
[2020-12-05 07:46] LABS: BUN Creatinine Ratio 18.2 (10-20); Calcium 8.6 mg/dl (8.5-10.1); Creatinine Clr Calc Pharmacy 40.3 ml/min; Est GFR (African American) 33.9 ml/min; Est GFR (Non-African American) 29.2 ml/min; Potassium 3.5 mmol/L (3.5-5.1)
[2020-12-05] MEDS: INSULIN ASPART 100 UNITS/ML 3 ML PEN SQ SCH ×2 (09:17→12:53)
[2020-12-05] MEDS: GABAPENTIN 600 MG TAB PO SCH ×2 (09:19→14:11)
[2020-12-05] MEDS: FERROUS SULFATE 325 MG TAB PO SCH (09:20)
[2020-12-05] MEDS: DOCUSATE SODIUM/SENNA 50/8.6MG TAB PO SCH (09:20)
[2020-12-05] MEDS: DULoxetine HCL 60 MG CAP PO SCH (09:20)
[2020-12-05] MEDS: ESCITALOPRAM OXALATE 10 MG TAB PO SCH (09:20)
[2020-12-05] MEDS: FAMOTIDINE 20 MG TAB PO SCH (09:20)
[2020-12-05] MEDS: CHOLECALCIFEROL 1,000 UNITS 25 MCG TAB PO SCH (09:21)
[2020-12-05] MEDS: buPROPion XL 300 MG TABCR PO SCH (09:21)
[2020-12-05] MEDS: MEROPENEM 500 MG in SYRINGE 0 ML IV SCH (09:22)
[2020-12-05] MEDS: busPIRone 15 MG TAB PO SCH (09:22)
[2020-12-05] MEDS ORDERED: CEFDINIR 300 MG CAP PO STA (12:07)
--- NOTE | 2020-12-05 16:46 | Discharge Summary ---
Date of Service December 05, 2020 Admission HPI Per Admitting Provider Patient is a resident from [facility] due to concern for frontal headache possible concern for aphasia. No recent falls. The patient is typically wheelchair bedbound. The patient does have weakness of the bilateral lower extremities which is chronic in nature. Patient denies any fevers or chills. Patient has a history of CVA. Patient denies any sensory deficits. The patient denies any neck pain or numbness or tingling. Reportedly the patient has had some difficulty with word finding on occasion which was notable to staff as well as the patient beginning yesterday. Patient denies any back pain. The patient does have a chronic Fallon catheter in place. She is a markedly abnormal urinalysis and a previous history of ESBL in her urine and MRSA in her wound. She is asked to be observed in our facility for determination if this is metabolic encephalopathy from urinary tract infection present on admission that is associated with the indwelling chronic Fallon catheter Spite some listed allergy to ertapenem patient was given meropenem in the ER which and tolerated it well she is also given meropenem on previous admissions Principal Diagnosis UTI Discharge Exam Constitutional WD/WN, vitals as above Eyes EOM intact bilaterally; no conjunctival abnormality ENMT external ear and nose normal, oropharynx normal Neck trachea midline, no thyromegaly normal visual inspection Respiratory normal respiratory effort, lungs clear to auscultation no respiratory distress Cardiovascular RRR, no murmur, no edema Gastrointestinal (Abdomen) Inspection/Auscultation: abdomen normal to inspection; abdomen not distended Musculoskeletal no cyanosis or clubbing, extremities motor strength 5/5 Skin no rashes, warm and dry Neurologic moves all extremities and awake Psychiatric Orientation: alert, oriented to person and cooperative Discharge Data Allergies Allergy/AdvReac Type Severity Reaction Status Date / Time cefazolin [From Anc] Allergy Unknown Unknown Verified 12/03/20 13:26 Penicillins Allergy Unknown Unknown Verified 12/03/20 11:22 pregabalin Allergy Unknown Unknown Verified 12/03/20 11:22 tramadol Allergy Unknown Unknown Verified 12/03/20 11:22 ertapenem AdvReac Intermediate Confusion, Verified 12/03/20 11:22 Hallucinations Ordered Studies 12/03/20 09:59 CT head/brain wo con Stat Hospital Course (1) Catheter-associated urinary tract infection: Patient presents with intermittent ill described neurological symptoms felt possibly to be metabolic encephalopathy from urinary tract infection present on admission associated with a chronic indwelling Fallon catheter. Patient most recently had a retrograde pyelogram on November 30 where she had bilateral ureteral stent placed. Uncertain will be that she is transient bacteremic from this event Dr. Toney was urologist at this time. Even concerns for previous ESBL E. coli patient is placed on meropenem as there are no good oral alternatives based upon her previous cultures. Certainly cultures were obtained both blood and urine and determination of duration of treatment and antibiotic choice will be based upon the results of those - Switched to cefdinir on discharge for culture results. The patient was in her usual mental state and felt well and requested to be discharged. No concerns for continued encephalopathy. (2) Weakness: Patient has persistent weakness and as mentioned in the HPI is typically wheelchair-bound. (3) CKD (chronic kidney disease) stage 3, GFR 30-59 ml/min: She has acute on chronic kidney injury with a creatinine 2.09 typically 1.7 range. This is likely somewhat related to her recent worsening of her illness. We will hydrate her and recheck labs in the morning. She previously has been seen by nephrology, Dr. Vela who feels this is influenced by her diabetes however she is intolerant of HAMILTON inhibitor due to lower blood pressure - By discharge, Cr was 1.8 which is close to baseline. (4) Diabetes mellitus type 2 in obese: Patient typically takes alogliptin and sliding scale insulin to control her glucose will check an A1c and have on basal bolus insulin while in the hospital (5) H/O: CVA (cerebrovascular accident): This is by her history, noncontrast CT scan of the head performed on admission does not show any acute event nor does it show any previous old CVA (6) DVT prophylaxis: Chemoprophylaxis will be ordered for DVT prophylaxis (7) COVID-19: Covid was last + May 21, 2020 Total Time Total Time Spent Total Time Spent (In Minutes): 35 Discharge Plan Discharge Items Patient Disposition: Trans Resident Long-Term Care Reason For Visit: METABOLIC ENCEPHALOPATHY URINARY SOURCE, RECENT Discharge Diagnosis: Urinary tract infection Activity: Resume your previous activity Non-emergency contact: Primary Care Provider Call non-emergency contact if: your symptoms worsen and your temperature is above 101 Follow-up/Referrals: Miles Carson [Primary Care Provider] - Diet: Regular Addtl Attending Provider Instructions: Ms. Hardy was admitted for a UTI. Her urine grew E. coli sensitive to cefdinir. She was given a dose before she was discharged as she has reported allergy to cefazolin. She had no reaction while in the hospital. She will be placed on this for another 5 days to treat her UTI. End date: 12/10/2020. Pending Studies at Discharge: No Stand-Alone Forms: [facility] Skilled Items Patient informed of condition?: Yes DNR: No Discharge Level of Care: Skilled Communicable Disease: No Discharge Prognosis: Improving Lines: None Urinary Catheter: Yes Medications and DC Order Prescriptions: New cefdinir 300 mg capsule 300 mg PO BID 5 Days Qty: 10 RF: 0 Continued escitalopram oxalate 10 mg tablet 10 mg PO QAM RF: 0 famotidine 20 mg Tablet 20 mg PO BID Qty: 60 RF: 0 alogliptin 25 mg Tablet 25 mg PO QAM RF: 0 Stress Formula Tablet 1 tab PO QAM RF: 0 B-complex with vitamin C Tablet 1 tab PO QAM RF: 0 baclofen 10 mg tablet 10 mg PO BID RF: 0 bisacodyl 10 mg Suppository 10 mg IA DIRECTED PRN (Reason: Constipation) RF: 0 acetaminophen [Tylenol] 325 mg Tablet 650 mg PO Q6 MDD 3gm PRN (Reason: temp>101) RF: 0 simvastatin 20 mg Tablet 20 mg PO HS RF: 0 dicyclomine 10 mg Capsule 10 mg PO Q6H PRN (Reason: abdominal cramping) RF: 0 cholecalciferol (vitamin D3) [Vitamin D3] 125 mcg (5,000 unit) Tablet 5,000 unit PO QAM RF: 0 gabapentin 600 mg Tablet 600 mg PO TID RF: 0 acetaminophen [Tylenol Extra Strength] 500 mg Tablet 1,000 mg PO Q6H PRN (Reason: pain lever: 1-4) RF: 0 duloxetine 60 mg Capsule,Delayed Release(Dr/Ec) 60 mg PO QAM RF: 0 dextrose 40 % Gel 1 ea PO UD RF: 0 simethicone [Gas-X Extra Strength] 125 mg Capsule 125 mg PO BID PRN (Reason: Dyspepsia) RF: 0 insulin aspart U-100 [Novolog U-100 Insulin aspart] 100 unit/mL Solution 3 unit SUBCUT TIDM RF: 0 ferrous sulfate 325 mg (65 mg iron) Tablet 325 mg PO QAM RF: 0 Enema 19-7 gram/118 mL Enema 118 ml IA DAILY PRN (Reason: Constipation) RF: 0 bupropion HCl [Wellbutrin XL] 300 mg Tablet Extended Release 24 Hr 300 mg PO QAM RF: 0 diclofenac sodium [Voltaren] 1 % Gel 4 g TOPICAL QID PRN (Reason: Pain) RF: 0 melatonin 5 mg Tablet 5 mg PO HS RF: 0 Glucagon (HCl) Emergency Kit 1 mg Recon Soln 1 mg IM UD RF: 0 d-mannose 500 mg Capsule 1,000 mg PO BID RF: 0 sennosides-docusate sodium [Senokot-S] 8.6-50 mg tablet 1 tab PO BID RF: 0 buspirone 15 mg Tablet 15 mg PO BID RF: 0 hydrocodone-acetaminophen 5-325 mg Tablet 1 tab PO Q6H PRN (Reason: Pain) RF: 0 tramadol 50 mg Tablet 50 mg PO BID PRN (Reason: Pain level 5-10) RF: 0 Discontinued ciprofloxacin HCl [Cipro] 500 mg tablet 500 mg PO Q12H Qty: 6 RF: 0 Discharge Orders: Discharge Order (Routine); Ordered 12/05/20 Ordered By: Tay Veras/Other Patient Handouts: Managing Type 2 Diabetes, A1C Admission Data Admit Date/Time: 12/03/20 14:56 Attending Provider: Tay Mesa Admit Provider: Rafy Eagle Primary Care Provider: Miles Carson Other Interventions: Discharge Summary Assessment (RN) Last Done: 12/05/20 13:58 Coding Level of Care Code D/C Day Management >30 mins Diagnoses Catheter-associated urinary tract infection T83.511A; N39.0 Encounter type: initial encounter Indwelling urinary catheter type: indwelling urethral catheter Weakness R53.1 CKD (chronic kidney disease) stage 3, GFR 30-59 ml/min N18.30 Diabetes mellitus type 2 in obese E11.69; E66.9 H/O: CVA (cerebrovascular accident) Z86.73 DVT prophylaxis Z29.9 COVID-19 U07.1
== END 2020-12-05 14:29 | DRG 659 ==
LOC: ED 09:30 → SUATTDRO 14:56 → 2N 14:56

== ENCOUNTER 2021-01-24 07:07 | Inpatient (IN) ==
[2021-01-24] MEDS ORDERED: cefTRIAXone SODIUM 2,000 MG/70 ML BAG IV STA (07:29)
[2021-01-24] MEDS ORDERED: HALOPERIDOL LACTATE 5 MG/ML 1 ML VIAL IM STA (07:29)
[2021-01-24] MEDS ORDERED: SODIUM CHLORIDE 0.9% 1000ML 1,000 ML IV SCH (07:30)
--- NOTE | 2021-01-24 07:37 | Emergency Department Note ---
Impression & Plan Acute confusion, UTI (urinary tract infection), SOLEDAD (acute kidney injury), Leukocytosis ED Provider Note NAME: MARGE MERCEDES AGE: 66 SEX: F : 1955 ARRIVES VIA: Ambulance INFORMANT: [Patient][ems, nursing] ED PROVIDER(S): [Tl Proctor MD] CHIEF COMPLAINT: Confusion HISTORY OF PRESENT ILLNESS: The patient is a 66-year-old female was noted to be confused and somewhat combative this morning. She is from [facility]. She is a DNR. She has a chronic Fallon catheter and has a history of catheter associated UTIs. She does oftentimes have neurologic issues when she has an infection. Patient is currently uncooperative and mumbling. She denies everything, she does not want to be at the hospital. I was able to contact her daughter who states she is her mother's power of mergers and acquisitions attorney. She gave us permission to use some sedation/relaxation in order to perform the work-up necessary. The daughter is on the way to the ED. Given the circumstances, given the mental status change, no further history obtainable. REVIEW OF SYSTEMS: Unobtainable given the mental status change. PMHx/PSHx: See Below SOCIAL HISTORY: See Below. PHYSICAL EXAM: GENERAL: Patient is in no acute distress. There is a Fallon catheter in place. HEENT: No acute trauma, normocephalic atraumatic, mucous membranes moist, no nasal congestion, no scleral icterus. NECK: No stridor, no adenopathy, no meningismus, trachea is midline. LUNGS: Clear to auscultation bilaterally, no wheeze, no rhonchi, breath sounds equal. HEART: Without murmurs gallops or rubs, regular rate and rhythm. ABDOMEN: Soft, nontender, bowel sounds positive, no hernias, no peritonitis. Obese. EXTREMITIES: No cyanosis or edema, no signs for acute trauma. NEUROLOGIC: Awake and alert, agitated. Refusing all care. Moves all extremities. Mumbling. Poor historian, confused. SKIN: No rash, no jaundice, no diaphoresis. DIFFERENTIAL DIAGNOSIS: Sepsis, UTI, pneumonia, metabolic abnormality, electrolyte abnormalities, cardiac sources, cellulitis, UTI, bacteremia, intracerebral event, toxicologic etiology, neurologic event, as well as other pathologies. EMERGENCY DEPARTMENT COURSE/PROCEDURES: ECG: Indication was possible sepsis. The ECG shows a normal sinus rhythm with a rate of 92. There is no ST elevation, there are no PVCs. There is some nonspecific ST change. QTC is 472. Continuous Cardiac Monitoring: An order was placed for continuous cardiac monitoring. The monitor shows a rate of 88 with normal sinus rhythm. Critical Care Note: I have personally spent 53 minutes of critical care time in the direct management of this patient. This includes bedside care, interpretation of diagnostic studies, and testing, discussion with consultants, patient, and family members, and other required patient management activities. This 53 minutes is in excess of all separately billable procedures. MEDICAL DECISION MAKING: There is a mild leukocytosis which would be consistent with infection. No concerning anemia. Platelet count slightly elevated. No coagulopathy. Renal panel testing does show some acute kidney injury with a creatinine of 2.78. Alk phos mildly elevated, the remaining liver enzymes were unremarkable. ECG shows a sinus rhythm, no acute ischemia. Cardiac enzyme testing x1 is not consistent with acute cardiac injury. Urinalysis does show evidence for infection. Covid testing returned negative. Chest film did not show pneumonia or CHF. Brain CT shows no acute bleed or mass-effect. Abdominal and pelvis CT shows ureteral stents with some right-sided hydronephrosis. She was initially quite uncooperative. She was given IM Haldol. She received IV Cogentin and IV Ativan to help with her behavior. She eventually received IV saline for hydration. She was given IV ceftriaxone as empiric antibiotic coverage. I did speak with the patient's daughter. Her daughter did give consent to use medication for sedation/relaxation. The patient was quite confused and this apparently is not her baseline. I suspect the infection is causing the mental status change. The patient has done well with the above treatment. She seems improved. I did speak with the daughter, I spoke with the adult family home program manager. The on-call hospitalist has been consulted. The patient is going to require further care in the hospital setting. Past Med/Surg History Medical History Allergic rhinitis Anemia anemia of chronic disease per long-term records. Most recent H/H WNL 11/24/20. Bunion Chronic pain CKD (chronic kidney disease) stage 3, GFR 30-59 ml/min Acute on chronic kidney injury 06/2020. Depression with anxiety Dermatitis Diabetes mellitus type 2 in obese Most recent A1C 04/2020 8.3% Disorders of magnesium metabolism Review of 2020 records (most recent on file 05/21/20) show Mg WNL Dyslipidemia Extended spectrum beta lactamase (ESBL) resistance Generalized atherosclerosis GERD (gastroesophageal reflux disease) H/O: CVA (cerebrovascular accident) 2013 per records Hammer toe History of COVID-19 05/2020> resolved per [facility] staff History of recurrent UTI (urinary tract infection) Hypokalemia K+ WNL on 11/24/20 labs Incontinence Indwelling Fallon catheter present Lesion of bladder Microscopic hematuria Morbid obesity Muscle spasm Osteomyelitis Overactive bladder Personal history of methicillin resistant Staphylococcus aureus Tinea unguium Ulcerative colitis Uropathy, obstructive Surgical History History of cataract surgery History of cystoscopy stent exchange: 05/05/20: MAC sedation at [facility] stent exchange: 08/17/20: MAC sedation at [facility] Hx of surgical procedure presence of urogenital implants Presence urogenital implant S/P cholecystectomy Family History Mother , age 79 of esophageal cancer Hypertension Father , in mid 60s of an [place] Myocardial infarction Social History Smoking Status: Unknown if ever smoked Tobacco Type: Cigarettes Age Quit Using Tobacco: 48; Hx Alcohol Use: No Hx Substance Use: No Preferred Language: Belarusian Communication Ability: Effective Visual Impairment: No Limitations Metal Door Assembler Required: No Beliefs That Will Affect Care: None marital status: Current Living Situation: Long-Term Current Living Situation Comment: [facility] Resident current occupational status: retired Feels Safe at Home: Yes Assistive Devices: Mechanical Lift Allergies Allergies Allergy/AdvReac Type Severity Reaction Status Date / Time cefazolin [From Ancef] Allergy Unknown Unknown Verified 01/24/21 08:42 Penicillins Allergy Unknown Unknown Verified 01/24/21 08:42 pregabalin Allergy Unknown Unknown Verified 01/24/21 08:42 tramadol Allergy Unknown Unknown Verified 01/24/21 08:42 ertapenem AdvReac Severe See comment Verified 01/24/21 10:51 oxycodone AdvReac Unknown Unknown Unverified 01/24/21 08:42 Home Meds Home Medications Medication Instructions Recorded Confirmed acetaminophen [Tylenol] 650 mg PO Q6 PRN MDD 3gm 05/23/18 01/24/21 simvastatin [Zocor] 20 mg PO HS 05/23/18 01/24/21 cholecalciferol (vitamin D3) 5,000 unit PO QAM 09/25/19 01/24/21 [Vitamin D3] Stress Formula 1 tab PO QAM 06/17/20 01/24/21 alogliptin [Nesina] 25 mg PO QAM 06/17/20 01/24/21 baclofen 10 mg PO TID 06/17/20 01/24/21 bisacodyl 10 mg AL DIRECTED PRN 07/20/20 01/24/21 Glucagon (HCl) Emergency Kit 1 mg IM UD 11/13/20 01/24/21 bupropion HCl [Wellbutrin XL] 300 mg PO QAM 11/13/20 01/24/21 dextrose 1 ea PO UD 11/13/20 01/24/21 ferrous sulfate [Iron (ferrous 325 mg PO QAM 11/13/20 01/24/21 sulfate)] melatonin 5 mg PO HS 11/13/20 01/24/21 sennosides-docusate sodium 1 tab PO BID 11/13/20 01/24/21 [Senokot-S] simethicone [Gas-X Extra Strength] 125 mg PO BID PRN 11/13/20 01/24/21 buspirone 15 mg PO BID 11/30/20 01/24/21 hydrocodone-acetaminophen 1 tab PO BID 11/30/20 01/24/21 tramadol 50 mg PO BID PRN 11/30/20 01/24/21 acetaminophen [Tylenol Extra 1,000 mg PO Q6H PRN 12/03/20 01/24/21 Strength] duloxetine [Cymbalta] 60 mg PO QAM 12/03/20 01/24/21 D Mannose 350mg Capsule 1,050 mg PO BID 01/24/21 01/24/21 famotidine [Pepcid] 20 mg PO BID 01/24/21 01/24/21 gabapentin [Neurontin] 800 mg PO TID 01/24/21 01/24/21 insulin aspart U-100 [Novolog See Rx Instructions .ROUTE .COMPLEX 01/24/21 01/24/21 U-100 Insulin aspart] vitamin B complex 1 tab PO QAM 01/24/21 01/24/21 Results & Data (ED) Vital Signs Vital Signs - 24 hr 01/24/21 07:20 01/24/21 08:39 01/24/21 10:00 Pulse Rate 88 91 H 90 Pulse Rate from SpO2 Sensor 89 Pulse Rhythm Regular Pulse Strength Normal Respiratory Rate 16 15 23 Respiratory Effort / Characteristics Non-Labored Spontaneous Respiratory Depth Normal Respiratory Pattern Regular Blood Pressure 125/91 120/90 156/90 H Blood Pressure Mean 102 100 112 Blood Pressure Position Lying Pulse Oximetry 95 92 79 L Oxygen Delivery Method Room Air Oxygen Flow Rate Sepsis Recent Fever Within 48 Hours No Sepsis New/Unexplained Change in Mental Status Yes Sepsis Action Taken by Nursing No Action Required 01/24/21 10:15 01/24/21 10:30 01/24/21 10:45 Pulse Rate 88 86 Pulse Rate from SpO2 Sensor 86 87 Pulse Rhythm Pulse Strength Respiratory Rate 20 21 22 Respiratory Effort / Characteristics Respiratory Depth Respiratory Pattern Blood Pressure 133/93 136/73 131/77 Blood Pressure Mean 106 94 95 Blood Pressure Position Pulse Oximetry 100 98 96 Oxygen Delivery Method Oxygen Flow Rate 2 2 2 Sepsis Recent Fever Within 48 Hours Sepsis New/Unexplained Change in Mental Status Sepsis Action Taken by Long-Term Medications Current Medication List: was personally reviewed by me Laboratory Data Attestation: I reviewed the patient's lab results. Result diagrams: 01/24/21 07:50 01/24/21 07:50 Lab Results 01/24/21 01/24/21 01/24/21 Range/Units 07:50 07:50 07:50 WBC 13.33 H (4.8-10.8) K/uL RBC 3.71 L (4.2-5.4) M/uL Hgb 11.4 L (12.0-16.0) g/dL Hct 35.9 L (37-47) % MCV 96.8 (80-100) fL MCH 30.7 (25-34) pg MCHC 31.8 L (32-36) g/dL RDW Std Deviation 56.0 H (36.4-46.3) fL RDW Coeff of Katina 15.9 H (11.5-14.5) % Plt Count 582 H (130-400) K/uL MPV 9.1 (7.4-10.4) fL Immature Gran % (Auto) 0.3 % Neut % (Auto) 77.4 % Lymph % (Auto) 14.8 % Mason % (Auto) 5.2 % Eos % (Auto) 2.0 % Baso % (Auto) 0.3 % Neut # (Auto) 10.33 H (1.4-6.5) K/uL Lymph # (Auto) 1.97 (1.2-3.4) K/uL Mason # (Auto) 0.69 H (0.11-0.59) K/uL Eos # (Auto) 0.26 (0-0.5) K/uL Baso # (Auto) 0.04 (0-0.2) K/uL Immature Gran # (Auto) 0.04 H (0.00-0.02) K/uL PT 11.3 (9.0-12.0) Seconds INR 1.1 (0.9-1.1) APTT 30.4 (21.0-31.0) Seconds PTT Ratio 1.2 Sodium 142 (136-145) mmol/L Potassium 4.5 (3.5-5.1) mmol/L Chloride 111 H (98-107) mmol/L Carbon Dioxide 24 (21-32) mmol/L Anion Gap 7.0 (3-11) BUN 43 H (7-18) mg/dl Creatinine 2.78 H (0.6-1.2) mg/dl Est Cr Clr Drug Dosing Not Reportable Est GFR ( Amer) 20.0 ml/min Est GFR (Non-Af Amer) 17.3 ml/min BUN/Creatinine Ratio 15.5 (10-20) Glucose 141 H (70-99) mg/dl Lactate (0.4-2.0) mmol/L Calcium 9.6 (8.5-10.1) mg/dl Magnesium 2.7 H (1.8-2.4) mg/dl Total Bilirubin 0.3 (0.2-1) mg/dl AST 24 (15-37) U/L ALT 26 (12-78) U/L Alkaline Phosphatase 118 H (45-117) U/L Troponin I < 0.015 (0-0.045) ng/ml Total Protein 9.7 H (6.4-8.2) gm/dl Albumin 2.6 L (3.4-5.0) gm/dl Globulin 7.1 H (2.5-4.0) gm/dl Albumin/Globulin Ratio 0.4 L (0.9-2) Procalcitonin (0-0.5) ng/ml Urine Color Urine Appearance (Clear) Urine pH (4.5-7.5) Ur Specific [place] (1.000-1.030) Urine Protein (Negative) Urine Glucose (UA) (Negative) Urine Ketones (Negative) Urine Blood (Negative) Urine Nitrite (Negative) Urine Bilirubin (Negative) Urine Urobilinogen (Negative) Ur Leukocyte Esterase (Negative) Urine WBC (Auto) (0-5) /hpf Urine RBC (Auto) (0-4) /hpf U Hyaline Cast (Auto) (0-5) /lpf U Epithel Cells (Auto) (0-5) /lpf Urine Bacteria (Auto) (Negative) Triple Phos Crystals (None Prsent) Urine Yeast COVID-19 Eval Order SARS-CoV-2 (PCR) (Negative) 01/24/21 01/24/21 01/24/21 Range/Units 07:50 07:50 08:20 WBC (4.8-10.8) K/uL RBC (4.2-5.4) M/uL Hgb (12.0-16.0) g/dL Hct (37-47) % MCV (80-100) fL MCH (25-34) pg MCHC (32-36) g/dL RDW Std Deviation (36.4-46.3) fL RDW Coeff of Katina (11.5-14.5) % Plt Count (130-400) K/uL MPV (7.4-10.4) fL Immature Gran % (Auto) % Neut % (Auto) % Lymph % (Auto) % Mason % (Auto) % Eos % (Auto) % Baso % (Auto) % Neut # (Auto) (1.4-6.5) K/uL Lymph # (Auto) (1.2-3.4) K/uL Mason # (Auto) (0.11-0.59) K/uL Eos # (Auto) (0-0.5) K/uL Baso # (Auto) (0-0.2) K/uL Immature Gran # (Auto) (0.00-0.02) K/uL PT (9.0-12.0) Seconds INR (0.9-1.1) APTT (21.0-31.0) Seconds PTT Ratio Sodium (136-145) mmol/L Potassium (3.5-5.1) mmol/L Chloride (98-107) mmol/L Carbon Dioxide (21-32) mmol/L Anion Gap (3-11) BUN (7-18) mg/dl Creatinine (0.6-1.2) mg/dl Est Cr Clr Drug Dosing Est GFR ( Amer) ml/min Est GFR (Non-Af Amer) ml/min BUN/Creatinine Ratio (10-20) Glucose (70-99) mg/dl Lactate 1.5 (0.4-2.0) mmol/L Calcium (8.5-10.1) mg/dl Magnesium (1.8-2.4) mg/dl Total Bilirubin (0.2-1) mg/dl AST (15-37) U/L ALT (12-78) U/L Alkaline Phosphatase (45-117) U/L Troponin I (0-0.045) ng/ml Total Protein (6.4-8.2) gm/dl Albumin (3.4-5.0) gm/dl Globulin (2.5-4.0) gm/dl Albumin/Globulin Ratio (0.9-2) Procalcitonin 0.11 (0-0.5) ng/ml Urine Color Yellow Urine Appearance Turbid A (Clear) Urine pH 7.5 (4.5-7.5) Ur Specific [place] 1.014 (1.000-1.030) Urine Protein 2+ H (Negative) Urine Glucose (UA) Negative (Negative) Urine Ketones Negative (Negative) Urine Blood 3+ H (Negative) Urine Nitrite Negative (Negative) Urine Bilirubin Negative (Negative) Urine Urobilinogen Negative (Negative) Ur Leukocyte Esterase 3+ H (Negative) Urine WBC (Auto) >30 H (0-5) /hpf Urine RBC (Auto) >30 H (0-4) /hpf U Hyaline Cast (Auto) 1-5 (0-5) /lpf U Epithel Cells (Auto) 20-30 H (0-5) /lpf Urine Bacteria (Auto) 2+ H (Negative) Triple Phos Crystals Present A (None Prsent) Urine Yeast Not Reportable COVID-19 Eval Order SARS-CoV-2 (PCR) (Negative) 01/24/21 01/24/21 Range/Units 08:45 08:45 WBC (4.8-10.8) K/uL RBC (4.2-5.4) M/uL Hgb (12.0-16.0) g/dL Hct (37-47) % MCV (80-100) fL MCH (25-34) pg MCHC (32-36) g/dL RDW Std Deviation (36.4-46.3) fL RDW Coeff of Katina (11.5-14.5) % Plt Count (130-400) K/uL MPV (7.4-10.4) fL Immature Gran % (Auto) % Neut % (Auto) % Lymph % (Auto) % Mason % (Auto) % Eos % (Auto) % Baso % (Auto) % Neut # (Auto) (1.4-6.5) K/uL Lymph # (Auto) (1.2-3.4) K/uL Mason # (Auto) (0.11-0.59) K/uL Eos # (Auto) (0-0.5) K/uL Baso # (Auto) (0-0.2) K/uL Immature Gran # (Auto) (0.00-0.02) K/uL PT (9.0-12.0) Seconds INR (0.9-1.1) APTT (21.0-31.0) Seconds PTT Ratio Sodium (136-145) mmol/L Potassium (3.5-5.1) mmol/L Chloride (98-107) mmol/L Carbon Dioxide (21-32) mmol/L Anion Gap (3-11) BUN (7-18) mg/dl Creatinine (0.6-1.2) mg/dl Est Cr Clr Drug Dosing Est GFR ( Amer) ml/min Est GFR (Non-Af Amer) ml/min BUN/Creatinine Ratio (10-20) Glucose (70-99) mg/dl Lactate (0.4-2.0) mmol/L Calcium (8.5-10.1) mg/dl Magnesium (1.8-2.4) mg/dl Total Bilirubin (0.2-1) mg/dl AST (15-37) U/L ALT (12-78) U/L Alkaline Phosphatase (45-117) U/L Troponin I (0-0.045) ng/ml Total Protein (6.4-8.2) gm/dl Albumin (3.4-5.0) gm/dl Globulin (2.5-4.0) gm/dl Albumin/Globulin Ratio (0.9-2) Procalcitonin (0-0.5) ng/ml Urine Color Urine Appearance (Clear) Urine pH (4.5-7.5) Ur Specific [place] (1.000-1.030) Urine Protein (Negative) Urine Glucose (UA) (Negative) Urine Ketones (Negative) Urine Blood (Negative) Urine Nitrite (Negative) Urine Bilirubin (Negative) Urine Urobilinogen (Negative) Ur Leukocyte Esterase (Negative) Urine WBC (Auto) (0-5) /hpf Urine RBC (Auto) (0-4) /hpf U Hyaline Cast (Auto) (0-5) /lpf U Epithel Cells (Auto) (0-5) /lpf Urine Bacteria (Auto) (Negative) Triple Phos Crystals (None Prsent) Urine Yeast COVID-19 Eval Order Covid19 at [facility] SARS-CoV-2 (PCR) NEGATIVE (Negative) Administered Medications Heparin Sodium (Porcine) (Heparin Sod 5,000 Unit/0.5 Ml Vial) 7,500 units SQ Q8 ELAN Stop: 02/23/21 13:59 Last Admin: 01/24/21 14:28 Dose: 7,500 units Documented by: [id number] Sodium Chloride (Nss 1000ml) 1,000 mls @ 100 mls/hr IV .Q10H ELAN Stop: 02/23/21 12:15 Last Admin: 01/24/21 13:25 Dose: 100 mls/hr Documented by: [id number] Insulin Aspart (Insulin Aspart 100 Units/Ml 3 Ml Pen) 0 units SC ACHS ELAN Stop: 02/23/21 12:15 Last Admin: 01/24/21 13:13 Dose: Not Given Documented by: [id number] Cosigned by: [id number] Discontinued Medications Benztropine Mesylate (Benztropine Mesylate 1 Mg/Ml 2 Ml Amp) 1 mg IV NOW STA Stop: 01/24/21 08:01 Last Admin: 01/24/21 08:14 Dose: 1 mg Documented by: [id number] Haloperidol Lactate (Haloperidol Lactate 5 Mg/Ml 1 Ml Vial) 10 mg IM NOW STA Stop: 01/24/21 07:30 Last Admin: 01/24/21 07:40 Dose: 10 mg Documented by: [id number] Sodium Chloride (Nss 1000ml) 1,000 mls @ 999 mls/hr IV .Q1H1M ELAN Stop: 01/24/21 08:30 Last Infusion: 01/24/21 09:37 Dose: 0 mls/hr Documented by: [id number] Admin: 01/24/21 08:58 Dose: 999 mls/hr Documented by: [id number] Ceftriaxone Sodium (Rocephin) 2,000 mg in 70 mls @ 140 mls/hr IV NOW STA Stop: 01/24/21 07:58 Last Infusion: 01/24/21 11:11 Dose: 0 mls/hr Documented by: [id number] Admin: 01/24/21 09:37 Dose: 140 mls/hr Documented by: [id number] Lorazepam (Ativan) 1 mg in 2 mls @ 2 mls/min IV NOW STA Stop: 01/24/21 08:01 Last Admin: 01/24/21 08:12 Dose: 2 mls/min Documented by: [id number] Ertapenem 500 mg/ Sodium (Chloride) 55 mls @ 110 mls/hr IV NOW ONE Stop: 01/24/21 11:14 Last Infusion: 01/24/21 12:48 Dose: 0 mls/hr Documented by: [id number] Admin: 01/24/21 12:18 Dose: 110 mls/hr Documented by: [id number] Miscellaneous (Patient's Height And/Or Weight Needed) 1 ea N/A Q2H ELAN Stop: 01/24/21 22:31 Last Admin: 01/24/21 13:17 Dose: Not Given Documented by: [id number] Imaging Data Radiologist's Impression: Chest X-Ray 01/24/21 07:29 XR chest 1V portable HISTORY: 66 years-old Female SEPSIS acute sepsis COMPARISON: 05/17/2020 TECHNIQUE: Supine AP view of the chest FINDINGS: Cardiac silhouette is enlarged. Mild right hemidiaphragmatic elevation. Limited exam secondary to positioning. No pneumothorax, pleural effusion, airspace consolidation or overt pulmonary edema. Degenerative changes of the shoulders. Chronic deformity of the left shoulder. IMPRESSION: Mild right hemidiaphragmatic elevation without acute process. ACT 112: Negative or not required by law. The above report was generated using voice recognition software. It may contain grammatical, syntax or spelling errors. Electronically signed by: Harrison Vo M.D. 01/24/2021 9:[address] 01/24/21 07:29 CT head/brain wo con CLINICAL HISTORY: 66 years-old Female with confusion. Acutely altered mental status TECHNIQUE: Multiple axial CT images of the head were obtained without contrast. A dose lowering technique was utilized adhering to the principles of ALARA. CT DOSE: 972.49 mGy.cm COMPARISON: Head CT 12/03/2020. FINDINGS: No acute intracranial hemorrhage, midline shift, intracranial mass, hydrocephalus, territorial ischemia or abnormal extra-axial collection. Mildly motion degraded exam. White matter hypodensities suggestive of chronic microvascular ischemic disease. Cerebral vascular calcifications. The calvarium is intact. Prior bilateral lens repair. Hyperostosis frontalis interna. The paranasal sinuses, mastoid air cells, and middle ear cavities are clear. IMPRESSION: Motion degraded exam. No acute intracranial abnormality. ACT 112: Negative or not required by law. The above report was generated using voice recognition software. It may contain grammatical, syntax or spelling errors. Electronically signed by: Harrison Vo M.D. 01/24/2021 8:56 AM Abdomen/Pelvis CT 01/24/21 10:[address] WITHOUT CONTRAST CT DOSE: 2021.86 mGy.cm HISTORY: Follow up study in a patient with bilateral ureteral stents and nephrolithiasis poss hydro TECHNIQUE: Multiaxial CT images of the abdomen and pelvis were performed without contrast. A dose lowering technique was utilized adhering to the principles of ALARA. COMPARISON STUDY: CT abdomen and pelvis 06/19/2020 FINDINGS: Mild bibasilar atelectasis. Mild right lung base mucous plugging. No pneumatosis or pneumoperitoneum. The study is mildly degraded by respiratory motion artifact and patient body habitus. Extensive coronary artery calcifications. Mild splenomegaly. Limited evaluation of the solid abdominal organs without the use of IV contrast. Calcifications are noted along the posterior right hepatic lobe. Otherwise unremarkable liver. Cholecystectomy. The pancreas and right adrenal gland are unremarkable. 1.2 cm left adrenal adenoma. Bilateral ureteral stents are present. There are least 3 nonobstructing calculi of the right kidney measuring up to 3-4 mm. No definite left renal calculi identified. There are least 2 subadjacent calculi of the proximal left ureter measuring up to 5 mm. 4 mm calcification of the right hemipelvis on image 364 is unchanged and may be vascular in origin. No additional ureteral calculi identified. Mild right-sided hydroureteronephrosis. Decompressed urinary bladder with Fallon catheter. Unremarkable appearance of uterus and adnexa. Atherosclerosis of the aorta without aneurysm. There is no adenopathy. No bowel obstruction or bowel wall thickening. Colonic diverticulosis. No CT evidence of acute diverticulitis. No CT evidence of acute appendicitis. Diastases recti with tiny fat filled periumbilical hernia. Degenerative changes of the spine, pelvis and hips. IMPRESSION: 1. Mild right-sided hydroureteronephrosis with at least two calculi of the proximal right ureter measuring up to 5 mm. 2. Satisfactory positioning of the bilateral ureteral stents. 3. Nonobstructing right nephrolithiasis. 4. No bowel obstruction or bowel wall thickening. 5. Colonic diverticulosis. 6. Additional findings as above. ACT 112: Negative or not required by law. The above report was generated using voice recognition software. It may contain grammatical, syntax or spelling errors. Electronically signed by: Harrison Vo M.D. 01/24/2021 11:16 AM Discharge Plan Visit Data Chief Complaint: Illness Stated Complaint: CONFUSION ED Provider: Tl Proctor Discharge Problem: Acute confusion, UTI (urinary tract infection), SOLEDAD (acute kidney injury), L eukocytosis Patient Disposition: Admitted As Inpatient Condition: Fair Discharge Instructions Interventions: ED Discharge Assessment Last Done: 01/24/21 11:37 Discharge Problem: UTI (urinary tract infection) Qualifiers: Urinary tract infection type: acute cystitis Hematuria presence: without hematuria Qualified Code(s): N30.00 - Acute cystitis without hematuria Leukocytosis Qualifiers: Leukocytosis type: unspecified Qualified Code(s): D72.829 - Elevated white blood cell count, unspecified
[2021-01-24] MEDS ORDERED: BENZTROPINE MESYLATE 1 MG/ML 2 ML AMP IV STA (08:00)
[2021-01-24] MEDS ORDERED: LORazepam 1 MG/2 ML VIAL IV STA (08:00)
[2021-01-24 08:29] LABS: Mean Corpuscular Hgb Conc 31.8 g/dL (32-36); Mean Platelet Volume 9.1 fL (7.4-10.4); Platelet Count 582 K/uL (130-400)
[2021-01-24 08:31] LABS: Appearance Urine Turbid (Clear); Bacteria Urine Automated 2+ (Negative); Bilirubin Urine Negative (Negative); Blood Urine 3+ (Negative); Color Urine Yellow; Epithelial Cell Urine Auto 20-30 /lpf (0-5); Glucose Urine UA Negative (Negative); Ketones Urine Negative (Negative); Leukocyte Esterase Urine 3+ (Negative); Nitrite Urine Negative (Negative); RBC Urine Automated >30 /hpf (0-4); Specific Gravity Urine 1.014 (1.000-1.030); Urobilinogen Urine Negative (Negative); WBC Urine Automated >30 /hpf (0-5); pH Urine 7.5 (4.5-7.5)
[2021-01-24 08:40] LABS: INR 1.1 (0.9-1.1); Partial Thromboplastin Ratio 1.2; Partial Thromboplastin Time 30.4 Seconds (21.0-31.0); Prothrombin Time 11.3 Seconds (9.0-12.0)
[2021-01-24 08:46] LABS: Alanine Aminotransferase 26 U/L (12-78); Albumin Level 2.6 gm/dl (3.4-5.0); Aspartate Aminotransferase 24 U/L (15-37); BUN Creatinine Ratio 15.5 (10-20); Blood Urea Nitrogen 43 mg/dl (7-18); Calcium 9.6 mg/dl (8.5-10.1); Carbon Dioxide 24 mmol/L (21-32); Chloride 111 mmol/L (98-107); Est GFR (Non-African American) 17.3 ml/min; Glucose 141 mg/dl (70-99); Magnesium 2.7 mg/dl (1.8-2.4); Potassium 4.5 mmol/L (3.5-5.1); Sodium 142 mmol/L (136-145)
[2021-01-24 08:47] LABS: Basophils # (auto) 0.04 K/uL (0-0.2); Basophils % (auto) 0.3 %; Eosinophils # (auto) 0.26 K/uL (0-0.5); Hematocrit (blood only) 35.9 % (37-47); Hemoglobin 11.4 g/dL (12.0-16.0); Immature Granulocytes # (auto) 0.04 K/uL (0.00-0.02); Immature Granulocytes % (auto) 0.3 %; Lymphocytes # (auto) 1.97 K/uL (1.2-3.4); Lymphocytes % (auto) 14.8 %; Mean Corpuscular Hemoglobin 30.7 pg (25-34); Mean Corpuscular Volume 96.8 fL (80-100); Monocytes # (auto) 0.69 K/uL (0.11-0.59); Monocytes % (auto) 5.2 %; Neutrophils # (auto) 10.33 K/uL (1.4-6.5); Neutrophils % (auto) 77.4 %; RDW Coefficient of Variation 15.9 % (11.5-14.5); Red Blood Count 3.71 M/uL (4.2-5.4); White Blood Count 13.33 K/uL (4.8-10.8)
[2021-01-24 08:49] LABS: Protein Urine 2+ (Negative)
[2021-01-24 08:51] LABS: Albumin Globulin Ratio 0.4 (0.9-2); Alkaline Phosphatase 118 U/L (45-117); Bilirubin,Total 0.3 mg/dl (0.2-1); Globulin 7.1 gm/dl (2.5-4.0); Total Protein 9.7 gm/dl (6.4-8.2); Troponin I < 0.015 ng/ml (0-0.045)
--- NOTE | 2021-01-24 08:57 | CT Scan Report ---
CT head/brain wo con CLINICAL HISTORY: 66 years-old Female with confusion. Acutely altered mental status TECHNIQUE: Multiple axial CT images of the head were obtained without contrast. A dose lowering tech nique was utilized adhering to the principles of ALARA. CT DOSE: 972.49 mGy.cm COMPARISON: Head CT 12/03/2020. FINDINGS: No acute intracranial hemorrhage, midline shift, intracranial mass, hydrocephalus, territorial ischem ia or abnormal extra-axial collection. Mildly motion degraded exam. White matter hypodensities sugges tive of chronic microvascular ischemic disease. Cerebral vascular calcifications. The calvarium is intact. Prior bilateral lens repair. Hyperostosis frontalis interna. The paranasal s inuses, mastoid air cells, and middle ear cavities are clear. IMPRESSION: Motion degraded exam. No acute intracranial abnormality. ACT 112: Negative or not required by law. The above report was generated using voice recognition software. It may contain grammatical, syntax o r spelling errors. Electronically signed by: Harrison Vo M.D. 01/24/2021 8:56 AM
[2021-01-24 09:07] LABS: Triple Phosphate Crystal Urine Present (None Prsent)
--- NOTE | 2021-01-24 09:37 | XRay Report ---
XR chest 1V portable HISTORY: 66 years-old Female SEPSIS acute sepsis COMPARISON: 05/17/2020 TECHNIQUE: Supine AP view of the chest FINDINGS: Cardiac silhouette is enlarged. Mild right hemidiaphragmatic elevation. Limited exam secondary to pos itioning. No pneumothorax, pleural effusion, airspace consolidation or overt pulmonary edema. Degener ative changes of the shoulders. Chronic deformity of the left shoulder. IMPRESSION: Mild right hemidiaphragmatic elevation without acute process. ACT 112: Negative or not required by law. The above report was generated using voice recognition software. It may contain grammatical, syntax o r spelling errors. Electronically signed by: Harrison Vo M.D. 01/24/2021 9:35 AM
[2021-01-24] MEDS ORDERED: ERTAPENEM SODIUM 500 MG in SODIUM CHLORIDE 0.9% 50 ML IV ONE (10:45)
--- NOTE | 2021-01-24 11:07 | Electrocardiogram Report ---
Test Reason : Blood Pressure : / mmHG Vent. Rate : 092 BPM Atrial Rate : 092 BPM P-R Int : 158 ms QRS Dur : 084 ms QT Int : 382 ms P-R-T Axes : 049 049 061 degrees QTc Int : 472 ms Poor data quality, interpretation may be adversely affected Normal sinus rhythm Nonspecific ST and T wave abnormality Abnormal ECG When compared with ECG of 03-DEC-2020 09:34, No significant change was found Confirmed by Dank Hagen ([id number]) on 01/24/2021 11:06:28 AM Referred [facility] Confirmed By:Raj Hagen
--- NOTE | 2021-01-24 11:17 | CT Scan Report ---
ABDOMEN AND PELVIS CT WITHOUT CONTRAST CT DOSE: 2020.86 mGy.cm HISTORY: Follow up study in a patient with bilateral ureteral stents and nephrolithiasis poss hydro TECHNIQUE: Multiaxial CT images of the abdomen and pelvis were performed without contrast. A dose lo wering technique was utilized adhering to the principles of ALARA. COMPARISON STUDY: CT abdomen and pelvis 06/19/2020 FINDINGS: Mild bibasilar atelectasis. Mild right lung base mucous plugging. No pneumatosis or pneumoperitoneum. The study is mildly degraded by respiratory motion artifact and patient body habitus. Extensive jad nary artery calcifications. Mild splenomegaly. Limited evaluation of the solid abdominal organs witho ut the use of IV contrast. Calcifications are noted along the posterior right hepatic lobe. Otherwise unremarkable liver. Cholecystectomy. The pancreas and right adrenal gland are unremarkable. 1.2 cm l eft adrenal adenoma. Bilateral ureteral stents are present. There are least 3 nonobstructing calculi of the right kidney m easuring up to 3-4 mm. No definite left renal calculi identified. There are least 2 subadjacent calcu li of the proximal left ureter measuring up to 5 mm. 4 mm calcification of the right hemipelvis on im age 89 is unchanged and may be vascular in origin. No additional ureteral calculi identified. Mild r ight-sided hydroureteronephrosis. Decompressed urinary bladder with Fallon catheter. Unremarkable appe arance of uterus and adnexa. Atherosclerosis of the aorta without aneurysm. There is no adenopathy. No bowel obstruction or bowel wall thickening. Colonic diverticulosis. No CT evidence of acute divert iculitis. No CT evidence of acute appendicitis. Diastases recti with tiny fat filled periumbilical he rnia. Degenerative changes of the spine, pelvis and hips. IMPRESSION: 1. Mild right-sided hydroureteronephrosis with at least two calculi of the proximal right ureter jose alberto uring up to 5 mm. 2. Satisfactory positioning of the bilateral ureteral stents. 3. Nonobstructing right nephrolithiasis. 4. No bowel obstruction or bowel wall thickening. 5. Colonic diverticulosis. 6. Additional findings as above. ACT 112: Negative or not required by law. The above report was generated using voice recognition software. It may contain grammatical, syntax o r spelling errors. Electronically signed by: Harrison Vo M.D. 01/24/2021 11:16 AM
[2021-01-24] MEDS ORDERED: ERTAPENEM CONSULT ACTIVE PRN (11:18)
--- NOTE | 2021-01-24 11:48 | History & Physical Report ---
Date of Service January 24, 2021 Assessment & Plan (1) Calculus of proximal right ureter: 2 calculi of proximal right ureter up to 5 mm/right hydronephrosis- NPO Follow urine culture and sensitivities NSS at 100 mils per hour Ertapenem 500 mg IV daily per pharmacy consult, due to history of ESBL UTIs Consult her urologist Dr. Toney Present on Admission?: Yes (2) Hydronephrosis, right: See above Present on Admission?: Yes (3) Acute kidney injury superimposed on CKD: Creatinine 2.78 upon admission, with range 1.78-2.10 NSS at 100 mils per hour Repeat laboratories in a.m. Present on Admission?: Yes (4) Confusion and disorientation: Confusion and disorientation/agitation Underlying dementia, aggravated by urinary tract infection Have available Haldol 5 mg IM every 4 hours as needed, and lorazepam 1 mg IV every 4 hours as needed Patient is presently sedated from ED treatment Present on Admission?: Yes (5) Agitation: See above Present on Admission?: Yes (6) Catheter-associated urinary tract infection: See above Present on Admission?: Yes (7) Dyslipidemia: Hold medications while n.p.o. due to sedation Present on Admission?: Yes (8) Depression with anxiety: Hold medications while n.p.o. due to sedation Present on Admission?: Yes History of Present Illness Chief Complaint: The patient is referred to the emergency department from [facility], due to concerns regarding confusion and patient being combative this morning. Primary Care Provider: [facility] The patient is a 66-year-old female with a past medical history including CKD stage IIIb, catheter associated UTIs, headache, bone infection, glucose intolerance, pyelonephritis, COVID-19 infection, morbid obesity, SOLEDAD on CKD, depression with anxiety, dyslipidemia, diabetes mellitus type 2, bladder lesion, and history of CVA. Patient has a chronic indwelling Fallon catheter, has had recurrent urinary tract infections, including ESBL, and was noted to be confused and had combativeness this morning at [facility]. Patient was combative in the emergency department, and received IV Ativan IM Haldol and Cogentin which relieved combativeness. Her daughter is present, who provides HPI and review of systems information Allergies Allergy/AdvReac Type Severity Reaction Status Date / Time cefazolin [From Anc] Allergy Unknown Unknown Verified 07/11/21 08:42 Penicillins Allergy Unknown Unknown Verified 01/24/21 08:42 pregabalin Allergy Unknown Unknown Verified 01/24/21 08:42 tramadol Allergy Unknown Unknown Verified 01/24/21 08:42 ertapenem AdvReac Severe See comment Verified 01/24/21 10:51 oxycodone AdvReac Unknown Unknown Unverified 01/24/21 08:42 Home Medications Medication Instructions Recorded Confirmed Type acetaminophen [Tylenol] 650 mg PO Q6 PRN MDD 3gm 05/23/18 01/24/21 History simvastatin [Zocor] 20 mg PO HS 05/23/18 01/24/21 History cholecalciferol (vitamin D3) 5,000 unit PO QAM 09/25/19 01/24/21 History [Vitamin D3] Stress Formula 1 tab PO QAM 06/17/20 01/24/21 History alogliptin [Nesina] 25 mg PO QAM 06/17/20 01/24/21 History baclofen 10 mg PO TID 06/17/20 01/24/21 History bisacodyl 10 mg LA DIRECTED PRN 07/20/20 01/24/21 History Glucagon (HCl) Emergency Kit 1 mg IM UD 11/13/20 01/24/21 History bupropion HCl [Wellbutrin XL] 300 mg PO QAM 11/13/20 01/24/21 History dextrose 1 ea PO UD 11/13/20 01/24/21 History ferrous sulfate [Iron (ferrous 325 mg PO QAM 11/13/20 01/24/21 History sulfate)] melatonin 5 mg PO HS 11/13/20 01/24/21 History sennosides-docusate sodium 1 tab PO BID 11/13/20 01/24/21 History [Senokot-S] simethicone [Gas-X Extra Strength] 125 mg PO BID PRN 11/13/20 01/24/21 History buspirone 15 mg PO BID 11/30/20 01/24/21 History hydrocodone-acetaminophen 1 tab PO BID 11/30/20 01/24/21 History tramadol 50 mg PO BID PRN 11/30/20 01/24/21 History acetaminophen [Tylenol Extra 1,000 mg PO Q6H PRN 12/03/20 01/24/21 History Strength] duloxetine [Cymbalta] 60 mg PO QAM 12/03/20 01/24/21 History D Mann[place] 350mg Capsule 1,050 mg PO BID 01/24/21 01/24/21 History famotidine [Pepcid] 20 mg PO BID 01/24/21 01/24/21 History gabapentin [Neurontin] 800 mg PO TID 01/24/21 01/24/21 History insulin aspart U-100 [Novolog See Rx Instructions .ROUTE .COMPLEX 01/24/21 01/24/21 History U-100 Insulin aspart] vitamin B complex 1 tab PO QAM 01/24/21 01/24/21 History Past Med/Surg History Medical History Allergic rhinitis Anemia anemia of chronic disease per long-term records. Most recent H/H WNL 11/24/20. Bunion Chronic pain CKD (chronic kidney disease) stage 3, GFR 30-59 ml/min Acute on chronic kidney injury 06/2020. Depression with anxiety Dermatitis Diabetes mellitus type 2 in obese Most recent A1C 04/2020 8.3% Disorders of magnesium metabolism Review of 2019 records (most recent on file 05/21/20) show Mg WNL Dyslipidemia Extended spectrum beta lactamase (ESBL) resistance Generalized atherosclerosis GERD (gastroesophageal reflux disease) H/O: CVA (cerebrovascular accident) 2013 per records Hammer toe History of COVID-19 05/2020> resolved per [facility] staff History of recurrent UTI (urinary tract infection) Hypokalemia K+ WNL on 11/24/20 labs Incontinence Indwelling Fallon catheter present Lesion of bladder Microscopic hematuria Morbid obesity Muscle spasm Osteomyelitis Overactive bladder Personal history of methicillin resistant Staphylococcus aureus Tinea unguium Ulcerative colitis Uropathy, obstructive Surgical History History of cataract surgery History of cystoscopy stent exchange: 05/05/20: MAC sedation at [facility] stent exchange: 08/17/20: MAC sedation at [facility] Hx of surgical procedure presence of urogenital implants Presence urogenital implant S/P cholecystectomy Family History Mother , age 79 of esophageal cancer Hypertension Father , in mid 60s of an [place] Myocardial infarction Social History Smoking Status: Unknown if ever smoked Tobacco Type: Cigarettes Age Quit Using Tobacco: 48; Hx Alcohol Use: No Hx Substance Use: No Preferred Language: Arabic Communication Ability: Effective Visual Impairment: No Limitations Risk Management Specialist Required: No Beliefs That Will Affect Care: None marital status: Current Living Situation: [facility] Current Living Situation Comment: [facility] Resident current occupational status: retired Feels Safe at Home: Yes Assistive Devices: Glasses Review of Systems Review of Systems: Unobtainable due to cognitive status Physical Exam Physical Exam: The patient is sedated, well developed and well nourished, normocephalic and atraumatic, lying in bed and in no acute distress. HEENT--PERRL, EOMI, mucous membranes and oropharynx dry. Neck--supple. No JVD. No bruits. Thyroid normal, trachea midline, no adenopathy. Heart--normal S1 and S2. No murmurs, rubs or gallops. Lungs--clear bilaterally, no respiratory distress, no accessory muscle use. Abdomen--normal bowel sounds and soft. Morbidly obese. Nondistended Extremities--no cyanosis or clubbing. No edema. Dermatologic--normal skin turgor, no rash Neurologic--cranial nerves II through XII grossly intact. Rheumatologic--limited exam due to sedation Psychiatric--sedated Results & Data Results & Data ([facility]) Vital Signs (Past 12 Hours) Vital Signs Pulse Resp BP Pulse Ox 01/24/21 11:37 82 16 114/86 98 01/24/21 10:45 22 131/77 96 01/24/21 10:30 86 21 136/73 98 01/24/21 10:15 88 20 133/93 100 01/24/21 10:00 90 23 156/90 H 79 L 01/24/21 08:39 91 H 15 120/90 92 01/24/21 07:20 88 16 125/91 95 Laboratory Results Laboratory Results WBC 13.33 K/uL (4.8-10.8) H 01/24/21 07:50 RBC 3.71 M/uL (4.2-5.4) L 01/24/21 07:50 Hgb 11.4 g/dL (12.0-16.0) L 01/24/21 07:50 Hct 35.9 % (37-47) L 01/24/21 07:50 MCV 96.8 fL (80-100) 01/24/21 07:50 MCH 30.7 pg (25-34) 01/24/21 07:50 MCHC 31.8 g/dL (32-36) L 01/24/21 07:50 RDW Std Deviation 56.0 fL (36.4-46.3) H 01/24/21 07:50 RDW Coeff of Katina 15.9 % (11.5-14.5) H 01/24/21 07:50 Plt Count 582 K/uL (130-400) H 01/24/21 07:50 MPV 9.1 fL (7.4-10.4) 01/24/21 07:50 Immature Gran % (Auto) 0.3 % 01/24/21 07:50 Neut % (Auto) 77.4 % 01/24/21 07:50 Lymph % (Auto) 14.8 % 01/24/21 07:50 Mchenry % (Auto) 5.2 % 01/24/21 07:50 Eos % (Auto) 2.0 % 01/24/21 07:50 Baso % (Auto) 0.3 % 01/24/21 07:50 Neut # (Auto) 10.33 K/uL (1.4-6.5) H 01/24/21 07:50 Lymph # (Auto) 1.97 K/uL (1.2-3.4) 01/24/21 07:50 Mchenry # (Auto) 0.69 K/uL (0.11-0.59) H 01/24/21 07:50 Eos # (Auto) 0.26 K/uL (0-0.5) 01/24/21 07:50 Baso # (Auto) 0.04 K/uL (0-0.2) 01/24/21 07:50 Immature Gran # (Auto) 0.04 K/uL (0.00-0.02) H 01/24/21 07:50 PT 11.3 Seconds (9.0-12.0) 01/24/21 07:50 INR 1.1 (0.9-1.1) 01/24/21 07:50 APTT 30.4 Seconds (21.0-31.0) 01/24/21 07:50 PTT Ratio 1.2 01/24/21 07:50 Sodium 142 mmol/L (136-145) 01/24/21 07:50 Potassium 4.5 mmol/L (3.5-5.1) 01/24/21 07:50 Chloride 111 mmol/L (98-107) H 01/24/21 07:50 Carbon Dioxide 24 mmol/L (21-32) 01/24/21 07:50 Anion Gap 7.0 (3-11) 01/24/21 07:50 BUN 43 mg/dl (7-18) H 01/24/21 07:50 Creatinine 2.78 mg/dl (0.6-1.2) H 01/24/21 07:50 Est Cr Clr Drug Dosing Not Reportable 01/24/21 07:50 Est GFR ( Amer) 20.0 ml/min 01/24/21 07:50 Est GFR (Non-Af Amer) 17.3 ml/min 01/24/21 07:50 BUN/Creatinine Ratio 15.5 (10-20) 01/24/21 07:50 Glucose 141 mg/dl (70-99) H 01/24/21 07:50 Lactate 1.5 mmol/L (0.4-2.0) 01/24/21 07:50 Calcium 9.6 mg/dl (8.5-10.1) 01/24/21 07:50 Magnesium 2.7 mg/dl (1.8-2.4) H 01/24/21 07:50 Total Bilirubin 0.3 mg/dl (0.2-1) 01/24/21 07:50 AST 24 U/L (15-37) 01/24/21 07:50 ALT 26 U/L (12-78) 01/24/21 07:50 Alkaline Phosphatase 118 U/L (45-117) H 01/24/21 07:50 Troponin I < 0.015 ng/ml (0-0.045) 01/24/21 07:50 Total Protein 9.7 gm/dl (6.4-8.2) H 01/24/21 07:50 Albumin 2.6 gm/dl (3.4-5.0) L 01/24/21 07:50 Globulin 7.1 gm/dl (2.5-4.0) H 01/24/21 07:50 Albumin/Globulin Ratio 0.4 (0.9-2) L 01/24/21 07:50 Procalcitonin 0.11 ng/ml (0-0.5) 01/24/21 07:50 Urine Color Yellow 01/24/21 08:20 Urine Appearance Turbid (Clear) A 01/24/21 08:20 Urine pH 7.5 (4.5-7.5) 01/24/21 08:20 Ur Specific [place] 1.014 (1.000-1.030) 01/24/21 08:20 Urine Protein 2+ (Negative) H 01/24/21 08:20 Urine Glucose (UA) Negative (Negative) 01/24/21 08:20 Urine Ketones Negative (Negative) 01/24/21 08:20 Urine Blood 3+ (Negative) H 01/24/21 08:20 Urine Nitrite Negative (Negative) 01/24/21 08:20 Urine Bilirubin Negative (Negative) 01/24/21 08:20 Urine Urobilinogen Negative (Negative) 01/24/21 08:20 Ur Leukocyte Esterase 3+ (Negative) H 01/24/21 08:20 Urine WBC (Auto) >30 /hpf (0-5) H 01/24/21 08:20 Urine RBC (Auto) >30 /hpf (0-4) H 01/24/21 08:20 U Hyaline Cast (Auto) 1-5 /lpf (0-5) 01/24/21 08:20 U Epithel Cells (Auto) 20-30 /lpf (0-5) H 01/24/21 08:20 Urine Bacteria (Auto) 2+ (Negative) H 01/24/21 08:20 Triple Phos Crystals Present (None Prsent) A 01/24/21 08:20 Urine Yeast Not Reportable 01/24/21 08:20 COVID-19 Eval Order Covid19 at [facility] 01/24/21 08:45 SARS-CoV-2 (PCR) NEGATIVE (Negative) 01/24/21 08:45 Impressions Chest X-Ray 01/24/21 07:29 XR chest 1V portable HISTORY: 66 years-old Female SEPSIS acute sepsis COMPARISON: 05/17/2020 TECHNIQUE: Supine AP view of the chest FINDINGS: Cardiac silhouette is enlarged. Mild right hemidiaphragmatic elevation. Limited exam secondary to positioning. No pneumothorax, pleural effusion, airspace consolidation or overt pulmonary edema. Degenerative changes of the shoulders. Chronic deformity of the left shoulder. IMPRESSION: Mild right hemidiaphragmatic elevation without acute process. ACT 112: Negative or not required by law. The above report was generated using voice recognition software. It may contain grammatical, syntax or spelling errors. Electronically signed by: Harrison Vo M.D. 01/24/2021 9:[address] 01/24/21 07:29 CT head/brain wo con CLINICAL HISTORY: 66 years-old Female with confusion. Acutely altered mental status TECHNIQUE: Multiple axial CT images of the head were obtained without contrast. A dose lowering technique was utilized adhering to the principles of ALARA. CT DOSE: 972.49 mGy.cm COMPARISON: Head CT 12/03/2020. FINDINGS: No acute intracranial hemorrhage, midline shift, intracranial mass, hydrocephalus, territorial ischemia or abnormal extra-axial collection. Mildly motion degraded exam. White matter hypodensities suggestive of chronic microvascular ischemic disease. Cerebral vascular calcifications. The calvarium is intact. Prior bilateral lens repair. Hyperostosis frontalis interna. The paranasal sinuses, mastoid air cells, and middle ear cavities are clear. IMPRESSION: Motion degraded exam. No acute intracranial abnormality. ACT 112: Negative or not required by law. The above report was generated using voice recognition software. It may contain grammatical, syntax or spelling errors. Electronically signed by: Harrison Vo M.D. 01/24/2021 8:56 AM Abdomen/Pelvis CT 01/24/21 10:[address] WITHOUT CONTRAST CT DOSE: 202.86 mGy.cm HISTORY: Follow up study in a patient with bilateral ureteral stents and nephrolithiasis poss hydro TECHNIQUE: Multiaxial CT images of the abdomen and pelvis were performed without contrast. A dose lowering technique was utilized adhering to the principles of ALARA. COMPARISON STUDY: CT abdomen and pelvis 06/19/2020 FINDINGS: Mild bibasilar atelectasis. Mild right lung base mucous plugging. No pneumatosis or pneumoperitoneum. The study is mildly degraded by respiratory motion artifact and patient body habitus. Extensive coronary artery calcifications. Mild splenomegaly. Limited evaluation of the solid abdominal organs without the use of IV contrast. Calcifications are noted along the posterior right hepatic lobe. Otherwise unremarkable liver. Cholecystectomy. The pancreas and right adrenal gland are unremarkable. 1.2 cm left adrenal adenoma. Bilateral ureteral stents are present. There are least 3 nonobstructing calculi of the right kidney measuring up to 3-4 mm. No definite left renal calculi identified. There are least 2 subadjacent calculi of the proximal left ureter measuring up to 5 mm. 4 mm calcification of the right hemipelvis on image 364 is unchanged and may be vascular in origin. No additional ureteral calculi identified. Mild right-sided hydroureteronephrosis. Decompressed urinary bladder with Fallon catheter. Unremarkable appearance of uterus and adnexa. Atherosclerosis of the aorta without aneurysm. There is no adenopathy. No bowel obstruction or bowel wall thickening. Colonic diverticulosis. No CT evidence of acute diverticulitis. No CT evidence of acute appendicitis. Diastases recti with tiny fat filled periumbilical hernia. Degenerative changes of the spine, pelvis and hips. IMPRESSION: 1. Mild right-sided hydroureteronephrosis with at least two calculi of the proximal right ureter measuring up to 5 mm. 2. Satisfactory positioning of the bilateral ureteral stents. 3. Nonobstructing right nephrolithiasis. 4. No bowel obstruction or bowel wall thickening. 5. Colonic diverticulosis. 6. Additional findings as above. ACT 112: Negative or not required by law. The above report was generated using voice recognition software. It may contain grammatical, syntax or spelling errors. Electronically signed by: Harrison Vo M.D. 01/24/2021 11:16 AM Code Status & VTE Plan Code Status DNR/DNI VTE Prophylaxis Plan VTE Prophylaxis will be ordered: Yes PG Care Time/CCT Total # of Minutes Spent Total Time Spent with Patient: Total time spent is greater than 50% in coordination of care (as documented) at patient's floor/unit and/or counseling patient: Coding Level of Care Code 70328 Initial Inpt Care Lvl 3 Diagnoses Calculus of proximal right ureter N20.1 Hydronephrosis, right N13.30 Acute kidney injury superimposed on CKD N17.9; N18.9 Confusion and disorientation R41.0 Agitation R45.1 Catheter-associated urinary tract infection T83.511A; N39.0 Encounter type: initial encounter Indwelling urinary catheter type: indwelling urethral catheter Dyslipidemia E78.5 Depression with anxiety F41.8 (1) Catheter-associated urinary tract infection Encounter type: initial encounter Indwelling urinary catheter type: indwelling urethral catheter Qualified Code(s): T83.511A - Infection and inflammatory reaction due to indwelling urethral catheter, initial encounter; N39.0 - Urinary tract infection, site not specified
[2021-01-24] MEDS ORDERED: LORazepam 1 MG/2 ML VIAL IV PRN (12:16)
[2021-01-24] MEDS ORDERED: HALOPERIDOL LACTATE 5 MG/ML 1 ML VIAL IM PRN (12:16)
[2021-01-24] MEDS ORDERED: GLUCOSE 40% GEL 15 GM TUBE PO PRN (12:16)
[2021-01-24] MEDS ORDERED: ONDANSETRON INJ 2 MG/ML 2 ML VIAL IV PRN (12:16)
[2021-01-24] MEDS ORDERED: GLUCAGON FOR INJ 1 MG VIAL SQ PRN (12:16)
[2021-01-24] MEDS ORDERED: DEXTROSE 50% 50 ML SYRINGE IV PRN (12:16)
[2021-01-24] MEDS ORDERED: GLUCOSE 10 TABS/TUBE PO PRN (12:16)
[2021-01-24] MEDS ORDERED: CARBOHYDRATES FOR HYPOGLYCEMIA PO PRN (12:16)
[2021-01-24] MEDS ORDERED: PATIENT'S HEIGHT AND/OR WEIGHT NEEDED SCH (12:30)
[2021-01-24] MEDS: INSULIN ASPART 100 UNITS/ML 3 ML PEN SC SCH ×3 (13:13→23:51)
[2021-01-24] MEDS: SODIUM CHLORIDE 0.9% 1000ML 1,000 ML IV SCH ×2 (13:25→22:48)
[2021-01-24] MEDS: HEPARIN SOD 5,000 UNIT/0.5 ML VIAL SQ SCH ×2 (14:28→21:01)
[2021-01-24] MEDS ORDERED: Nursing to Pharmacy Communication SCH (19:15)
--- NOTE | 2021-01-25 04:24 | Urology Consultation ---
Date of Consultation January 25, 2021 Assessment & Plan (1) Calculus of proximal right ureter: Patient admitted with severe SOLEDAD and altered mental status. Patient well- known patient with chronic stents for chronic obstruction issues. Patient has known history of stones. Patient developed worsening issues and confusion. Confusion has somewhat improved but patient has chronic underlying dementia/memory issues. Patient has not had a considerable fever. Has a history of ESBL and was placed on ertapenem. Patient experiencing tachycardia. Patient stents appear to be in good position however hydronephrosis and stones on imaging and concern for possible incomplete function of stent with need for exchange. Has previously had failure of stents with development of UTI. Risks and benefits discussed at length for procedure. These include bleeding, infection, injury to surrounding tissues or organs, and risks associated with anesthesia. Patient states understanding and agrees to proceed. Will sign consent and proceed. Plan for cystoscopy and bilateral stent exchange Due to confusion issues as well as at patient's request, discussed with Patient's daughter Kymberly Ingram at 503 am and plan to proceed with daughter and patient's consent. Due to Acute Renal Failure and AMS plan to proceed with Urgent/Emergent stent exchange. (2) Hydronephrosis, right: See above (3) Acute kidney injury superimposed on CKD: Creatinine 2.78 upon admission, with range 1.78-2.10 History of Present Illness Attending Physician: Raymond Harris MD History of Present Illness New consultation for well-known patient with chronic stents for chronic ob struction and CKD with stone, discomfort, obstruction, and ill feelings. Patient developed sudden onset of pain into flank going down and radiating into groin and back in waves comes and goes. Can be severe at times. Patient had confusion and agitation with known dementia/altered mental status. Found to have a significant SOLDEAD on patient CKD Discussed and reviewed patient's family history for any history of stone disease. Also, discussed patient's medical surgery history especially related to any history of urinary issues or stone disease. Patient was admitted and is undergoing observation. Allergies Allergy/AdvReac Type Severity Reaction Status Date / Time cefazolin [From Ancef] Allergy Unknown Unknown Verified 01/24/21 08:42 Penicillins Allergy Unknown Unknown Verified 01/24/21 08:42 pregabalin Allergy Unknown Unknown Verified 01/24/21 08:42 tramadol Allergy Unknown Unknown Verified 01/24/21 08:42 ertapenem AdvReac Severe See comment Verified 01/24/21 10:51 oxycodone AdvReac Unknown Unknown Unverified 01/24/21 08:42 Home Medications Medication Instructions Recorded Confirmed Type acetaminophen [Tylenol] 650 mg PO Q6 PRN MDD 3gm 05/23/18 01/24/21 History simvastatin [Zocor] 20 mg PO HS 05/23/18 01/24/21 History cholecalciferol (vitamin D3) 5,000 unit PO QAM 09/25/19 01/24/21 History [Vitamin D3] Stress Formula 1 tab PO QAM 06/17/20 01/24/21 History alogliptin [Nesina] 25 mg PO QAM 06/17/20 01/24/21 History baclofen 10 mg PO TID 06/17/20 01/24/21 History bisacodyl 10 mg OR DIRECTED PRN 07/20/20 01/24/21 History Glucagon (HCl) Emergency Kit 1 mg IM UD 11/13/20 01/24/21 History bupropion HCl [Wellbutrin XL] 300 mg PO QAM 11/13/20 01/24/21 History dextrose 1 ea PO UD 11/13/20 01/24/21 History ferrous sulfate [Iron (ferrous 325 mg PO QAM 11/13/20 01/24/21 History sulfate)] melatonin 5 mg PO HS 11/13/20 01/24/21 History sennosides-docusate sodium 1 tab PO BID 11/13/20 01/24/21 History [Senokot-S] simethicone [Gas-X Extra Strength] 125 mg PO BID PRN 11/13/20 01/24/21 History buspirone 15 mg PO BID 11/30/20 01/24/21 History hydrocodone-acetaminophen 1 tab PO BID 11/30/20 01/24/21 History tramadol 50 mg PO BID PRN 11/30/20 01/24/21 History acetaminophen [Tylenol Extra 1,000 mg PO Q6H PRN 12/03/20 01/24/21 History Strength] duloxetine [Cymbalta] 60 mg PO QAM 12/03/20 01/24/21 History D Mannose 350mg Capsule 1,050 mg PO BID 01/24/21 01/24/21 History famotidine [Pepcid] 20 mg PO BID 01/24/21 01/24/21 History gabapentin [Neurontin] 800 mg PO TID 01/24/21 01/24/21 History insulin aspart U-100 [Novolog See Rx Instructions .ROUTE .COMPLEX 01/24/2101/24 History U-100 Insulin aspart] vitamin B complex 1 tab PO QAM 01/24/21 01/24/21 History Patient History Medical History Allergic rhinitis Anemia anemia of chronic disease per [facility] records. Most recent H/H WNL 11/24/20. Bunion Chronic pain CKD (chronic kidney disease) stage 3, GFR 30-59 ml/min Acute on chronic kidney injury 06/2020. Depression with anxiety Dermatitis Diabetes mellitus type 2 in obese Most recent A1C 04/2020 8.3% Disorders of magnesium metabolism Review of 2019 records (most recent on file 05/21/20) show Mg WNL Dyslipidemia Extended spectrum beta lactamase (ESBL) resistance Generalized atherosclerosis GERD (gastroesophageal reflux disease) H/O: CVA (cerebrovascular accident) 2013 per records Hammer toe History of COVID-19 05/2020> resolved per [facility] staff History of recurrent UTI (urinary tract infection) Hypokalemia K+ WNL on 11/24/20 labs Incontinence Indwelling Fallon catheter present Lesion of bladder Microscopic hematuria Morbid obesity Muscle spasm Osteomyelitis Overactive bladder Personal history of methicillin resistant Staphylococcus aureus Tinea unguium Ulcerative colitis Uropathy, obstructive Surgical History History of cataract surgery History of cystoscopy stent exchange: 05/05/20: MAC sedation at [facility] stent exchange: 08/17/20: MAC sedation at [facility] Hx of surgical procedure presence of urogenital implants Presence urogenital implant S/P cholecystectomy Family History Mother , age 79 of esophageal cancer Hypertension Father , in mid 60s of an [place] Myocardial infarction Social History Smoking Status: Unknown if ever smoked Tobacco Type: Cigarettes Age Quit Using Tobacco: 48; Hx Alcohol Use: No Hx Substance Use: No Preferred Language: Maori Communication Ability: Effective Visual Impairment: No Limitations Sword Swallower Required: No Beliefs That Will Affect Care: None marital status: Current Living Situation: Care Home Current Living Situation Comment: [facility] Resident current occupational status: retired Feels Safe at Home: Yes Assistive Devices: Oxygen - Continuous Review of Systems Review of Systems: All systems reviewed & are unremarkable except as noted in HPI & below Limited due to mentation and chronic vascular dementia Physical Exam Physical Exam: General: Alert in no acute distress. Advanced age. Chronic Medical issues. Altered mental status on chronic memory/dementia. Morbidly obese HEENT: Normocephalic. Inspection normal. Cranial Nerves 2-12 Grossly intact with some hearing issues. Normal inspection of face. Normal inspection of neck. Psychologic: Normal affect. Baseline issues with memory. Respiratory: Nonlabored. No use of accessory muscles. No tachypnea or dyspnea. Cardiovascular: tachycardia Skin: [place] and Dry. No rashes or visible lesions. Extremities/Lymphatics: Bedbound. Abdomen: Morbidly obese. Soft Non-distended. No rebound or guarding. Results & Data ([facility]) Vital Signs (Past 12 Hours) Vital Signs Temp Pulse Resp BP Pulse Ox 01/24/21 22:54 36.5 C 106 H 20 119/80 97 PG Care Time/CCT Total # of Minutes Spent Total Time Spent with Patient: Total time spent is greater than 50% in coordination of care (as documented) at patient's floor/unit and/or counseling patient: Coding Level of Care Code 50340 Inpt Consult Level 5 Diagnoses Calculus of proximal right ureter N20.1 Hydronephrosis, right N13.30 Acute kidney injury superimposed on CKD N17.9; N18.9
--- NOTE | 2021-01-25 05:12 | Anesthesiology Consultation ---
Date of Service January 25, 2021 Assessment & Plan (1) Encounter for pre-operative examination: Chart Review Chart Review: Acceptable Risk for Surgery and Patient NOT seen in Pre Admission Testing Consults Requested none History Surgery Operation Date: 01/25/21 05:30 Proposed Procedures p Ureteral Stent Insertion/Removal(Bilateral) - Tyree Toney DO s Cystoscopy - Tyree Toney DO Height/Weight Height: 5 ft 5 in Weight: 113.4 kg Allergies Allergy/AdvReac Type Severity Reaction Status Date / Time cefazolin [From Ancef] Allergy Unknown Unknown Verified 01/24/21 08:42 Penicillins Allergy Unknown Unknown Verified 01/24/21 08:42 pregabalin Allergy Unknown Unknown Verified 01/24/21 08:42 tramadol Allergy Unknown Unknown Verified 01/24/21 08:42 ertapenem AdvReac Severe See comment Verified 01/24/21 10:51 oxycodone AdvReac Unknown Unknown Unverified 01/24/21 08:42 Medications Home Medications Medication Instructions Recorded Confirmed Last Taken acetaminophen [Tylenol] 650 mg PO Q6 PRN MDD 3gm 05/23/18 01/24/21 Unknown simvastatin [Zocor] 20 mg PO HS 05/23/18 01/24/21 01/23/21 21:00 cholecalciferol (vitamin D3) 5,000 unit PO QAM 09/25/19 01/24/21 01/23/21 09:00 [Vitamin D3] Stress Formula 1 tab PO QAM 06/17/20 01/24/21 01/23/21 09:00 alogliptin [Nesina] 25 mg PO QAM 06/17/20 01/24/21 01/23/21 08:00 baclofen 10 mg PO TID 06/17/20 01/24/21 01/24/21 00:00 bisacodyl 10 mg HI DIRECTED PRN 07/20/20 01/24/21 Unknown Glucagon (HCl) Emergency Kit 1 mg IM UD 11/13/20 01/24/21 Unknown bupropion HCl [Wellbutrin XL] 300 mg PO QAM 11/13/20 01/24/21 01/23/21 08:00 dextrose 1 ea PO UD 11/13/20 01/24/21 Unknown ferrous sulfate [Iron (ferrous 325 mg PO QAM 04/01/24/21 01/23/21 08:00 sulfate)] melatonin 5 mg PO HS 11/13/20 01/24/21 01/23/21 20:00 sennosides-docusate sodium 1 tab PO BID 11/13/20 01/24/21 01/23/21 20:00 [Senokot-S] simethicone [Gas-X Extra Strength] 125 mg PO BID PRN 11/13/20 01/24/21 Unknown buspirone 15 mg PO BID 11/30/20 01/24/21 01/23/21 16:00 hydrocodone-acetaminophen 1 tab PO BID 11/30/20 01/24/21 01/14/21 20:00 tramadol 50 mg PO BID PRN 11/30/20 01/24/21 11/29/20 16:00 acetaminophen [Tylenol Extra 1,000 mg PO Q6H PRN 12/03/20 01/24/21 11/30/20 23:15 Strength] duloxetine [Cymbalta] 60 mg PO QAM 12/03/20 01/24/21 01/23/21 09:00 D Mannose 350mg Capsule 1,050 mg PO BID 01/24/21 01/24/21 01/23/21 16:00 famotidine [Pepcid] 20 mg PO BID 01/24/21 01/24/21 01/23/21 20:00 gabapentin [Neurontin] 800 mg PO TID 01/24/21 01/24/21 01/23/21 16:00 insulin aspart U-100 [Novolog See Rx Instructions .ROUTE .COMPLEX 01/24/21 01/24/21 01/23/21 12:00 U-100 Insulin aspart] 9 units vitamin B complex 1 tab PO QAM 01/24/21 01/24/21 01/23/21 09:00 Active Medications Generic Name Dose Route Start Last Admin Trade Name Freq PRN Reason Stop Dose Admin Heparin Sodium (Porcine) 7,500 units 01/24/21 14:00 01/24/21 21:01 Heparin Sod 5,000 Unit/0.5 Ml Vial SQ 02/23/21 13:59 7,500 units Q8 ELAN Administration Sodium Chloride 1,000 mls @ 100 mls/hr 01/24/21 12:16 01/24/21 22:48 Nss 1000ml IV 02/23/21 12:15 100 mls/hr .Q10H ELAN Administration Insulin Aspart 0 units 01/25/21 00:00 01/24/21 23:51 Insulin Aspart 100 Units/Ml 3 Ml Pen SC 02/23/21 12:15 1 units Q6 ELAN Administration Past Medical History Medical History Allergic rhinitis Anemia anemia of chronic disease per long-term records. Most recent H/H WNL 11/24/20. Bunion Chronic pain CKD (chronic kidney disease) stage 3, GFR 30-59 ml/min Acute on chronic kidney injury 06/2020. Depression with anxiety Dermatitis Diabetes mellitus type 2 in obese Most recent A1C 04/2020 8.3% Disorders of magnesium metabolism Review of 2019 records (most recent on file 05/21/20) show Mg WNL Dyslipidemia Extended spectrum beta lactamase (ESBL) resistance Generalized atherosclerosis GERD (gastroesophageal reflux disease) H/O: CVA (cerebrovascular accident) 2014 per records Hammer toe History of COVID-19 05/2020> resolved per [facility] staff History of recurrent UTI (urinary tract infection) Hypokalemia K+ WNL on 11/24/20 labs Incontinence Indwelling Fallon catheter present Lesion of bladder Microscopic hematuria Morbid obesity Muscle spasm Osteomyelitis Overactive bladder Personal history of methicillin resistant Staphylococcus aureus Tinea unguium Ulcerative colitis Uropathy, obstructive Exercise / Class Metabolic Activity IV < 2 Limit ADL/Bedbound Past Family History Family History Mother , age 79 of esophageal cancer Hypertension Father , in mid 60s of an [place] Myocardial infarction Past Surgical History Surgical History History of cataract surgery History of cystoscopy stent exchange: 05/05/20: MAC sedation at [facility] stent exchange: 08/17/20: MAC sedation at [facility] Hx of surgical procedure presence of urogenital implants Presence urogenital implant S/P cholecystectomy Past Anesthesia History No Hx of Anesthesia Complications and No Family Hx of Anesthesia Complications History of PONV No Hx of PONV and No Hx of Motion Sickness Social History Smoking Status: Unknown if ever smoked Hx Alcohol Use: No Hx Substance Use: No substance use type: does not use Physical Exam Vital Signs Last Vital Signs Temp 36.4 C L 01/25/21 04:41 Pulse 101 H 01/25/21 04:41 Resp 15 01/25/21 04:41 BP 113/76 01/25/21 04:41 Pulse Ox 96 01/25/21 04:41 Testing Laboratory Results 01/24/21 07:50 01/24/21 07:50 PT 11.3 Seconds (9.0-12.0) 01/24/21 07:50 INR 1.1 (0.9-1.1) 01/24/21 07:50 APTT 30.4 Seconds (21.0-31.0) 01/24/21 07:50 Urine Color Yellow 01/24/21 08:20 Urine Appearance Turbid (Clear) A 01/24/21 08:20 Urine pH 7.5 (4.5-7.5) 01/24/21 08:20 Ur Specific Rhe[place] 1.014 (1.000-1.030) 01/24/21 08:20 Urine Protein 2+ (Negative) H 01/24/21 08:20 Urine Glucose (UA) Negative (Negative) 01/24/21 08:20 Urine Ketones Negative (Negative) 01/24/21 08:20 Urine Nitrite Negative (Negative) 01/24/21 08:20 Ur Leukocyte Esterase 3+ (Negative) H 01/24/21 08:20 Urine WBC (Auto) >30 /hpf (0-5) H 01/24/21 08:20 Urine RBC (Auto) >30 /hpf (0-4) H 01/24/21 08:20 U Hyaline Cast (Auto) 1-5 /lpf (0-5) 01/24/21 08:20 U Epithel Cells (Auto) 20-30 /lpf (0-5) H 01/24/21 08:20 Urine Bacteria (Auto) 2+ (Negative) H 01/24/21 08:20 01/25/21 01/24/21 01/24/21 04:39 23:45 16:58 POC Glucose 166 H 173 H 186 H
[2021-01-25] MEDS ORDERED: PROPOFOL IV EMULSION 10 MG/ML 20 ML VIAL IV ONE (05:15)
[2021-01-25] MEDS ORDERED: KETAMINE 50 MG/5 ML SYRINGE ONE (05:16)
[2021-01-25] MEDS ORDERED: fentaNYL citrate 100 MCG/2 ML VIAL IV PRN (05:23)
[2021-01-25] MEDS ORDERED: ATROPINE SULFATE 0.1 MG/ML 10ML SYR IV PRN (05:23)
[2021-01-25] MEDS ORDERED: ePHEDrine sulfate 50 MG/ML AMP IV PRN (05:23)
[2021-01-25] MEDS ORDERED: ONDANSETRON INJ 2 MG/ML 2 ML VIAL IV PRN (05:23)
[2021-01-25] MEDS ORDERED: DIATRIZOATE MEGLUMINE 30% 100ML VIAL INSTIL ONE (05:48)
--- NOTE | 2021-01-25 05:51 | Operative Report ---
[facility] Post Operative Report Pre & Post Diagnosis Hydronephrosis with SOLEDAD Same Operation Date: 01/25/21 05:30 <No data on this case meets the specified criteria> I identified the patient and participated in the time-out.: Yes Procedure Cystoscopy with bilateral stent exchange and retrograde pyelogram Operation Date: 01/25/21 05:30 <No data on this case meets the specified criteria> Surgeon Tyree Toney, II, DO Career Development Director None Estimated Blood Loss 1 Findings Consistent with Post-Op Diagnosis Stents exchanged and placed in good position. Dilated urethra with contracted bladder. Specimens None Drains 7 Fr x 26 bilateral Anesthesia Type MAC Complications none Disposition Disposition: Recovery Room Indications Patient with obstruction with chronic stent changes. Patient presented in acute renal failure with altered mental status. Discussed with patient and patient's daughter. Emergent/Urgent Procedure. Risks and benefits discussed at length. Description of Procedure Patient was consented and brought back to the operating room. Patient was placed under anesthesia in the supine position and moved to the dorsal lithotomy position. Patient was prepped and draped in the regular sterile fashion. A time out was completed. A 30degree Cystoscope was placed into the bladder and the entire bladder was examined. The bladder was significantly contracted. The UO's were identified. The left followed by the right were exchanged. The stent was grasped and partially removed. A wire was then placed and the stent fully removed. The UO was cannulized over the wire with a dual lumen catheter and a retrograde pyelogram was completed. The wire was maintained and the catheter removed. With the wire in place, a 7 Fr Double J stent was placed. Once completed on the left, it was completed on the right following the same procedured. It was confirmed with fluoroscopy on each side. With the stents in place, the bladder was emptied. The scope was removed. An 18 Fr Coude catheter was placed. Patient's urethra was found to be severely dilated likely from chronic catheterization. The patient was cleaned, aroused from anesthesia, and transferred to the pacu in stable condition having tolerated the procedure well with no complications. I was present and participated in all aspects of the procedure. The patient will be monitored in the PACU until transferred. Plan to observe and continue antibiotics. Maintain stents and chronic catheter. I attest to the content of the Intraoperative Record and any orders documented therein. Any exceptions are noted below.
[2021-01-25] MEDS ORDERED: ONDANSETRON INJ 2 MG/ML 2 ML VIAL ONE (05:53)
--- NOTE | 2021-01-25 06:31 | Anesthesiology Progress Note ---
Date of Service January 25, 2021 Anesthesia Post Procedure Vital Signs Vital Signs: Temp Pulse Pulse Resp BP BP BP 01/25/21 06:20 94 H 14 128/76 01/25/21 06:10 94 H 16 131/71 01/25/21 06:00 36.4 C L 94 H 16 129/84 01/25/21 04:41 36.4 C L 101 H 15 113/76 01/24/21 22:54 36.5 C 106 H 20 119/80 01/24/21 14:05 37.1 C 104 H 18 138/86 01/24/21 12:28 37.0 C 91 H 18 128/82 01/24/21 11:37 82 16 114/86 01/24/21 10:45 22 131/77 01/24/21 10:30 86 21 136/73 01/24/21 10:15 88 20 133/93 01/24/21 10:00 90 23 156/90 H 01/24/21 08:39 91 H 15 120/90 01/24/21 07:20 88 16 125/91 Pulse Ox 01/25/21 06:20 99 01/25/21 06:10 100 01/25/21 06:00 100 01/25/21 04:41 96 01/24/21 22:54 97 01/24/21 14:05 98 01/24/21 12:28 99 01/24/21 11:37 98 01/24/21 10:45 96 01/24/21 10:30 98 01/24/21 10:15 100 01/24/21 10:00 79 L 01/24/21 08:39 92 01/24/21 07:20 95 Transfer of Care Handoff Completed per policy Notes Mental Status: alert / awake / arousable (Sedated) Patient Amnestic to Procedure: Yes Nausea / Vomiting: adequately controlled Pain: adequately controlled Airway Patency, RR, SpO2: stable & adequate BP & HR: stable & adequate Hydration State: stable & adequate Anesthetic Complications: no major complications apparent and Pt Satisfied with anesthetic care
[2021-01-25] MEDS: HEPARIN SOD 5,000 UNIT/0.5 ML VIAL SQ SCH ×3 (06:48→21:00)
[2021-01-25] MEDS: INSULIN ASPART 100 UNITS/ML 3 ML PEN SC SCH ×4 (06:51→20:46)
--- NOTE | 2021-01-25 08:05 | Hospitalist Progress Note ---
Date of Service January 25, 2021 Assessment & Plan (1) Calculus of proximal right ureter: 66F with PMH CKD3 DM2 ESBL UTI admitted for nephrolithiasis and UTI. (1) Calculus of Proximal Right Ureter: 2 calculi found in proximal right ureter up to 5mm with hydronephrosis. Patient had previous stents placed bilaterally due to previous history of chronic calculi. -Stents were removed and replaced bilaterally by Urology 01/25/21 (2) Catheter-associated Urinary Tract Infection: Patient has chronic indwelling engel. -patient blood an urine cultures collected 01/24 results gram positive cocci chains -initially on Ertapenem 500mg Q24, added Daptomycin 500mg Q48, will change pending culture speciation (3) Hydronephrosis: hydronephrosis of right ureter secondary to calculi -stents replaced by urology (4) Acute Kidney Injury superimposed on CKD: Creatinine 2.78 upon admission, with range 1.78-2.10, NSS at 100 mils per hour -current creatinine 2.67, continue IV fluids (5) Confusion and Disorientation: Confusion and disorientation/agitation. Underlying dementia, aggravated by urinary tract infection. Have available Haldol 5 mg IM every 4 hours as needed, and lorazepam 1 mg IV every 4 hours as needed -currently improved, patient speaking, will contact long term for baseline mentation (6) Agitation see above (7) Dyslipidemia Home medications held for surgery, can resume (8) Depression with Anxiety Home medications held for surgery, can resume (9) Diabetes Mellitus type 2 in Obese Currently on sliding scale Novolog, last A1C 7.3 01/25/21 (2) Hydronephrosis, right: (3) Acute kidney injury superimposed on CKD: (4) Confusion and disorientation: (5) Catheter-associated urinary tract infection: (6) Agitation: (7) Dyslipidemia: (8) Depression with anxiety: (9) Diabetes mellitus type 2 in obese: Admission and Anticipated Discharge Date Admission Date: January 24, 2021 Supervising Physician Co-Signing Physician Notes Attending attestation Pt seen and examined in concert with Dr. Rivero. In agreement with the documented findings as noted in the resident documentation with any exceptions or additions as noted here. Pleasantly interactive though disoriented (AAOx1) and confused. Denies pain at this time, no n/v/d/c. On examination, S1/S2 nl RRR no MCG. CTAB. Abd NT/ND BS+ve Right nephrolithiasis with hydronephrosis - urology consultation - stent exchange today CAUTI present on admission - f/u C/S - continue current abx SOLEDAD on CKD IV - continue IV hydration, trend daily Delirium - likely 2/2 metabolic encephalopathy from infection and underlying dementia - frequent reorientation. Decrease dose of ativan/haldol to 0.5mg and 1mg respectively. Else see resident documentation as noted. Subjective Patient seen at bedside. Currently feeling drowsy, didn't sleep well last night, currently NPO post surgery, 1 loose BM last night. Per nurse last night she pulled out her IV, still awaiting replacement. In room she pulled out her oxygen and is currently doing fine on room air. She has a engel placed currently 400cc urine, yellow. Dr. العلي replaced bilateral stents in her at 4:19am this morning. PMH: CKD3 depression anxiety DM2 GERD UC Review of Systems Review of Systems: negative SOB palpitations nausea vomitting diarrhea constipation headache dizziness fever chills numbness tingling rashes Physical Exam Physical Exam: Heart: RRR, no gallops/rubs/murmurs Lungs: cta b/l, no wheezes/rales/rhonchi Extremities: no swelling, rashes Results & Data Results & Data ([facility]) Vital Signs (Past 12 Hours) Vital Signs Temp Pulse Resp BP Pulse Ox 01/25/21 06:40 36.5 C 101 H 18 123/81 96 01/25/21 06:20 94 H 14 128/76 99 01/25/21 06:10 94 H 16 131/71 100 01/25/21 06:00 36.4 C L 94 H 16 129/84 100 01/25/21 04:41 36.4 C L 101 H 15 113/76 96 01/24/21 22:54 36.5 C 106 H 20 119/80 97 Laboratory Results 01/25/21 01/25/21 01/25/21 Range/Units 11:32 08:06 08:06 WBC (4.8-10.8) K/uL RBC (4.2-5.4) M/uL Hgb (12.0-16.0) g/dL Hct (37-47) % MCV (80-100) fL MCH (25-34) pg MCHC (32-36) g/dL RDW Std Deviation (36.4-46.3) fL RDW Coeff of Katina (11.5-14.5) % Plt Count (130-400) K/uL MPV (7.4-10.4) fL Immature Gran % (Auto) % Neut % (Auto) % Lymph % (Auto) % Patrick % (Auto) % Eos % (Auto) % Baso % (Auto) % Neut # (Auto) (1.4-6.5) K/uL Lymph # (Auto) (1.2-3.4) K/uL Patrick # (Auto) (0.11-0.59) K/uL Eos # (Auto) (0-0.5) K/uL Baso # (Auto) (0-0.2) K/uL Immature Gran # (Auto) (0.00-0.02) K/uL Sodium 148 H (136-145) mmol/L Potassium 4.1 (3.5-5.1) mmol/L Chloride 117 H (98-107) mmol/L Carbon Dioxide 22 (21-32) mmol/L Anion Gap 8.0 (3-11) BUN 40 H (7-18) mg/dl Creatinine 2.67 H (0.6-1.2) mg/dl Est Cr Clr Drug Dosing 26.7 ml/min Est GFR ( Amer) 21.0 ml/min Est GFR (Non-Af Amer) 18.1 ml/min BUN/Creatinine Ratio 15.1 (10-20) Glucose 124 H (70-99) mg/dl POC Glucose 145 H (70-99) mg/dl Estimat Average Glucose 163 mg/dl Hemoglobin A1c 7.3 H (4.5-5.6) % Calcium 9.1 (8.5-10.1) mg/dl Total Bilirubin 0.4 (0.2-1) mg/dl AST 26 (15-37) U/L ALT 25 (12-78) U/L Alkaline Phosphatase 118 H (45-117) U/L Total Protein 8.7 H (6.4-8.2) gm/dl Albumin 2.3 L (3.4-5.0) gm/dl Globulin 6.4 H (2.5-4.0) gm/dl Albumin/Globulin Ratio 0.4 L (0.9-2) 01/25/21 01/25/21 01/25/21 Range/Units 08:06 07:53 06:51 WBC 18.24 H (4.8-10.8) K/uL RBC 3.43 L (4.2-5.4) M/uL Hgb 10.2 L (12.0-16.0) g/dL Hct 32.9 L (37-47) % MCV 95.9 (80-100) fL MCH 29.7 (25-34) pg MCHC 31.0 L (32-36) g/dL RDW Std Deviation 56.7 H (36.4-46.3) fL RDW Coeff of Katina 16.3 H (11.5-14.5) % Plt Count 460 H (130-400) K/uL MPV 9.0 (7.4-10.4) fL Immature Gran % (Auto) 0.3 % Neut % (Auto) 79.0 % Lymph % (Auto) 14.3 % Patrick % (Auto) 6.0 % Eos % (Auto) 0.2 % Baso % (Auto) 0.2 % Neut # (Auto) 14.42 H (1.4-6.5) K/uL Lymph # (Auto) 2.60 (1.2-3.4) K/uL Patrick # (Auto) 1.10 H (0.11-0.59) K/uL Eos # (Auto) 0.03 (0-0.5) K/uL Baso # (Auto) 0.04 (0-0.2) K/uL Immature Gran # (Auto) 0.05 H (0.00-0.02) K/uL Sodium (136-145) mmol/L Potassium (3.5-5.1) mmol/L Chloride (98-107) mmol/L Carbon Dioxide (21-32) mmol/L Anion Gap (3-11) BUN (7-18) mg/dl Creatinine (0.6-1.2) mg/dl Est Cr Clr Drug Dosing ml/min Est GFR ( Amer) ml/min Est GFR (Non-Af Amer) ml/min BUN/Creatinine Ratio (10-20) Glucose (70-99) mg/dl POC Glucose 135 H 131 H (70-99) mg/dl Estimat Average Glucose mg/dl Hemoglobin A1c (4.5-5.6) % Calcium (8.5-10.1) mg/dl Total Bilirubin (0.2-1) mg/dl AST (15-37) U/L ALT (12-78) U/L Alkaline Phosphatase (45-117) U/L Total Protein (6.4-8.2) gm/dl Albumin (3.4-5.0) gm/dl Globulin (2.5-4.0) gm/dl Albumin/Globulin Ratio (0.9-2) 01/25/21 01/24/21 01/24/21 Range/Units 04:39 23:45 16:58 WBC (4.8-10.8) K/uL RBC (4.2-5.4) M/uL Hgb (12.0-16.0) g/dL Hct (37-47) % MCV (80-100) fL MCH (25-34) pg MCHC (32-36) g/dL RDW Std Deviation (36.4-46.3) fL RDW Coeff of Katina (11.5-14.5) % Plt Count (130-400) K/uL MPV (7.4-10.4) fL Immature Gran % (Auto) % Neut % (Auto) % Lymph % (Auto) % Patrick % (Auto) % Eos % (Auto) % Baso % (Auto) % Neut # (Auto) (1.4-6.5) K/uL Lymph # (Auto) (1.2-3.4) K/uL Patrick # (Auto) (0.11-0.59) K/uL Eos # (Auto) (0-0.5) K/uL Baso # (Auto) (0-0.2) K/uL Immature Gran # (Auto) (0.00-0.02) K/uL Sodium (136-145) mmol/L Potassium (3.5-5.1) mmol/L Chloride (98-107) mmol/L Carbon Dioxide (21-32) mmol/L Anion Gap (3-11) BUN (7-18) mg/dl Creatinine (0.6-1.2) mg/dl Est Cr Clr Drug Dosing ml/min Est GFR ( Amer) ml/min Est GFR (Non-Af Amer) ml/min BUN/Creatinine Ratio (10-20) Glucose (70-99) mg/dl POC Glucose 166 H 173 H 186 H (70-99) mg/dl Estimat Average Glucose mg/dl Hemoglobin A1c (4.5-5.6) % Calcium (8.5-10.1) mg/dl Total Bilirubin (0.2-1) mg/dl AST (15-37) U/L ALT (12-78) U/L Alkaline Phosphatase (45-117) U/L Total Protein (6.4-8.2) gm/dl Albumin (3.4-5.0) gm/dl Globulin (2.5-4.0) gm/dl Albumin/Globulin Ratio (0.9-2) Medications Administered Current Inpatient Medications Dextrose (Dextrose 50% 50 Ml Syringe) 25 - 50 ml IV UD PRN; Protocol PRN Reason: Hypoglycemia Protocol Stop: 02/23/21 12:15 Ertapenem (Ertapenem Consult Active) 1 ea N/A UD PRN PRN Reason: Consult Stop: 02/23/21 11:17 Glucagon (Glucagon For Inj 1 Mg Vial) 1 mg SQ UD PRN; Protocol PRN Reason: Hypoglycemia Protocol Stop: 02/23/21 12:15 Glucose (Glucose 10 Tabs/Tube) 4 - 8 tabs PO UD PRN; Protocol PRN Reason: Hypoglycemia Protocol Stop: 02/23/21 12:15 Glucose (Glucose 40% Gel 15 Gm Tube) 15 - 30 gm PO UD PRN; Protocol PRN Reason: Hypoglycemia Protocol Stop: 02/23/21 12:15 Haloperidol Lactate (Haloperidol Lactate 5 Mg/Ml 1 Ml Vial) 5 mg IM Q4H PRN PRN Reason: Agitation Stop: 02/23/21 12:15 Heparin Sodium (Porcine) (Heparin Sod 5,000 Unit/0.5 Ml Vial) 7,500 units SQ Q8 ELAN Stop: 02/23/21 13:59 Last Admin: 01/25/21 14:17 Dose: 7,500 units Documented by: Ertapenem 500 mg/ Sodium (Chloride) 55 mls @ 110 mls/hr IV Q24H ELAN Stop: 01/27/21 12:29 Last Infusion: 01/25/21 13:13 Dose: Infused Documented by: Lorazepam (Ativan) 1 mg in 2 mls @ 2 mls/min IV Q4H PRN PRN Reason: Anxiety/Agitation Stop: 02/23/21 12:15 Sodium Chloride (Nss 1000ml) 1,000 mls @ 100 mls/hr IV .Q10H ELAN Stop: 02/23/21 12:15 Last Admin: 01/25/21 11:29 Dose: 100 mls/hr Documented by: Daptomycin 500 mg/ Syringe 10 mls @ 5 mls/min IV Q48H ELAN; Protocol Stop: 02/08/21 13:59 Last Admin: 01/25/21 14:19 Dose: 5 mls/min Documented by: Insulin Aspart (Insulin Aspart 100 Units/Ml 3 Ml Pen) 0 units SC Q6 ELAN Stop: 02/23/21 12:15 Last Admin: 01/25/21 11:43 Dose: Not Given Documented by: Miscellaneous (Carbohydrates For Hypoglycemia ) 15 - 30 gm PO UD PRN PRN Reason: Hypoglycemia Protocol Stop: 02/23/21 12:15 Miscellaneous Information (Daptomycin Consult Active) 1 ea N/A UD PRN PRN Reason: Consult Stop: 02/24/21 13:03 Ondansetron HCl (Ondansetron Inj 2 Mg/Ml 2 Ml Vial) 4 mg IV Q6H PRN PRN Reason: Nausea Stop: 02/23/21 12:15 Resident Activity Tracking Resident Involvement: Resident Care Provided Care Provided: Adult Hospital Medicine (1) Catheter-associated urinary tract infection Encounter type: initial encounter Indwelling urinary catheter type: indwelling urethral catheter Qualified Code(s): T83.511A - Infection and inflammatory reaction due to indwelling urethral catheter, initial encounter; N39.0 - Urinary tract infection, site not specified
--- NOTE | 2021-01-25 08:33 | Fluoroscopy Report ---
FL retrograde includes kub CLINICAL HISTORY: B/L STENT EXCHANGE COMPARISON STUDY: Fluoroscopic retrograde 08/17/2020. FLUOROSCOPY TIME: 38 seconds. FINDINGS: 6 fluoroscopic spot images of the abdomen and pelvis demonstrate retrograde opacification o f the bilateral renal collecting systems with placement of bilateral ureteral stents. The distal sten ts are not visualized on this study. The proximal stents appear good position. IMPRESSION: Fluoroscopy provided for bilateral ureteral stent placement. ACT 112: Negative or not required by law. Electronically signed by: Mak Monteiro M.D. 01/25/2021 8:31 AM
[2021-01-25 08:39] LABS: Basophils # (auto) 0.04 K/uL (0-0.2); Basophils % (auto) 0.2 %; Eosinophils # (auto) 0.03 K/uL (0-0.5); Eosinophils % (auto) 0.2 %; Hematocrit (blood only) 32.9 % (37-47); Hemoglobin 10.2 g/dL (12.0-16.0); Immature Granulocytes # (auto) 0.05 K/uL (0.00-0.02); Immature Granulocytes % (auto) 0.3 %; Lymphocytes % (auto) 14.3 %; Mean Corpuscular Hemoglobin 29.7 pg (25-34); Mean Corpuscular Volume 95.9 fL (80-100); Neutrophils # (auto) 14.42 K/uL (1.4-6.5); Platelet Count 460 K/uL (130-400); RDW Coefficient of Variation 16.3 % (11.5-14.5); RDW Standard Deviation 56.7 fL (36.4-46.3); Red Blood Count 3.43 M/uL (4.2-5.4); White Blood Count 18.24 K/uL (4.8-10.8)
[2021-01-25 09:12] LABS: Albumin Level 2.3 gm/dl (3.4-5.0); BUN Creatinine Ratio 15.1 (10-20); Calcium 9.1 mg/dl (8.5-10.1); Creatinine Clr Calc Pharmacy 26.7 ml/min; Est GFR (Non-African American) 18.1 ml/min; Potassium 4.1 mmol/L (3.5-5.1)
[2021-01-25 09:14] LABS: Albumin Globulin Ratio 0.4 (0.9-2); Bilirubin,Total 0.4 mg/dl (0.2-1); Globulin 6.4 gm/dl (2.5-4.0); Total Protein 8.7 gm/dl (6.4-8.2)
[2021-01-25 10:07] LABS: Estimated Average Glucose 163 mg/dl; Hemoglobin A1C 7.3 % (4.5-5.6)
[2021-01-25] MEDS: SODIUM CHLORIDE 0.9% 1000ML 1,000 ML IV SCH ×2 (11:29→20:56)
[2021-01-25] MEDS: ERTAPENEM SODIUM 500 MG in SODIUM CHLORIDE 0.9% 50 ML IV SCH (12:37)
[2021-01-25] MEDS ORDERED: DAPTOmycin 500 MG in SYRINGE 0 ML IV SCH (14:00)
[2021-01-25] MEDS ORDERED: Nursing to Pharmacy Communication SCH (19:15)
[2021-01-25] MEDS ORDERED: ACETAMINOPHEN 500 MG TAB PO PRN (21:53)
[2021-01-25] MEDS ORDERED: ACETAMINOPHEN 500 MG TAB ONE (22:21)
[2021-01-26] MEDS ORDERED: HALOPERIDOL LACTATE 5 MG/ML 1 ML VIAL IM PRN (04:30)
[2021-01-26] MEDS: SODIUM CHLORIDE 0.9% 1000ML 1,000 ML IV SCH (06:24)
[2021-01-26] MEDS: HEPARIN SOD 5,000 UNIT/0.5 ML VIAL SQ SCH ×3 (06:24→21:21)
[2021-01-26 06:27] LABS: Basophils # (auto) 0.04 K/uL (0-0.2); Basophils % (auto) 0.3 %; Eosinophils # (auto) 0.13 K/uL (0-0.5); Eosinophils % (auto) 1.1 %; Hematocrit (blood only) 29.2 % (37-47); Hemoglobin 9.1 g/dL (12.0-16.0); Immature Granulocytes # (auto) 0.03 K/uL (0.00-0.02); Immature Granulocytes % (auto) 0.3 %; Lymphocytes # (auto) 2.57 K/uL (1.2-3.4); Lymphocytes % (auto) 21.8 %; Mean Corpuscular Hemoglobin 29.4 pg (25-34); Mean Corpuscular Hgb Conc 31.2 g/dL (32-36); Mean Corpuscular Volume 94.5 fL (80-100); Mean Platelet Volume 9.1 fL (7.4-10.4); Monocytes # (auto) 0.82 K/uL (0.11-0.59); Neutrophils # (auto) 8.18 K/uL (1.4-6.5); Neutrophils % (auto) 69.5 %; Platelet Count 388 K/uL (130-400); RDW Standard Deviation 55.7 fL (36.4-46.3); Red Blood Count 3.09 M/uL (4.2-5.4); White Blood Count 11.77 K/uL (4.8-10.8)
--- NOTE | 2021-01-26 06:55 | Hospitalist Progress Note ---
Date of Service January 26, 2021 Assessment & Plan (1) Calculus of proximal right ureter: 66F with PMH CKD3 DM2 ESBL UTI admitted for nephrolithiasis and UTI. (1) Catheter-associated Urinary Tract Infection: Patient has chronic indwelling engel. Patient blood an urine cultures collected 01/24 results gram positive cocci chains, 01/26 found enterococcus species. Found 3 organisms in high count in urine 01/26/21. -initially on Ertapenem 500mg Q24, added Daptomycin 500mg Q48, continue both abx (2) Acute Kidney Injury superimposed on CKD: Creatinine 2.78 upon admission, with range 1.78-2.10, NSS at 100 mils per hour -current creatinine 2.14, stop IV fluids, continue to monitor bmp (3) Confusion and Disorientation/agitation: Confusion and disorientation/agitation. Underlying dementia, aggravated by urinary tract infection. Have available Haldol 5 mg IM every 8 hours as needed, and lorazepam 1 mg IV every 6 hours as needed -currently improved, patient speaking, will contact skilled nursing for baseline mentation (4) Back and Leg pain Appears to be chronic since before hospitalization. Last night managed with 1mg ativan and tylenol, today tylenol and 2mg morphine IV Q4hrs did not help with pain -morphine available at 2mg and 4mg Q4hr PRN (5) Physical Therapy/Occupational Therapy Patient expressed difficulty walking and manipulating eating utensils -order for PT/OT (6) Calculus of Proximal Right Ureter: 2 calculi found in proximal right ureter up to 5mm with hydronephrosis. Patient had previous stents placed bilaterally due to previous history of chronic calculi. -Stents were removed and replaced bilaterally by Urology 01/25/21 (7) Hydronephrosis: hydronephrosis of right ureter secondary to calculi -stents replaced by urology (8) Dyslipidemia Home medications held for surgery, can resume (9) Depression with Anxiety Home medications held for surgery, can resume (10) Diabetes Mellitus type 2 in Obese Currently on sliding scale Novolog, last A1C 7.3 01/25/21 (2) Hydronephrosis, right: (3) Acute kidney injury superimposed on CKD: (4) Confusion and disorientation: (5) Catheter-associated urinary tract infection: (6) Agitation: (7) Dyslipidemia: (8) Depression with anxiety: (9) Diabetes mellitus type 2 in obese: Admission and Anticipated Discharge Date Admission Date: January 24, 2021 Supervising Physician Co-Signing Physician Notes Attending attestation Pt seen and examined in concert with Dr. Rivero. In agreement with the documented findings as noted in the resident documentation with any exceptions or additions as noted here. Significantly improved orientation and coherency today. Complaining of chronic right lower extremity pain which is waxing and waning but constant and has been extensively evaluated in the past with multiple modalities of therapy per patient. No record of these easily available on chart, patient does not recall PCP nor last appointment. Morphine PRN may have helped. A complete ROS was attempted but patient not consistently able to answer/easily distractable. On examination, S1/S2 nl RRR no MCG. CTAB. Abd NT/ND BS+ve. CAUTI present on admission - f/u C/S - continue current abx pending repeat urine culture and C/S based on UCx Right nephrolithiasis with hydronephrosis - urology consultation - s/p stent exchange on 01.24, UOP acceptable SOLEDAD on CKD IV - stabilized creatinine - d/c IVF and encourage POI. Trend BMP Delirium - likely 2/2 metabolic encephalopathy from infection and underlying dementia - frequent reorientation. ativan 0.5mg and haldol 1mg sparingly for agitation/anxiety Chronic RLE pain - d/w patient re: potential approaches - will obtain outside re cords and for now support with PRN morphine atop APAP for pain control Else see resident documentation as noted. Subjective Patient seen at bedside. Patient is drowsy, AAOx3, states she did not sleep well, appetite is well and is voiding normally. Catheter is present and urine is yellow and clear. Yesterday she had bilateral uretal stents replaced, feeling well today. She complains of pain in b/l LE at the knee that worsens with palpation onset since hospital admission. Per nurse patient began complaining of leg pain last night that resolved with ativan 1mg and tylenol. Patient expresses worry over being able to walk upon discharge due to pain. PMH: CKD state 3B, catheter associated UTIs, DM2, dyslipidemia, depression, anxiety, GERD, UC, obesity Review of Systems Review of Systems: negative nausea vomiting fever chills headache dizziness diarrhea constipation Physical Exam Physical Exam: Heart: RRR, no gallops/rubs/murmurs Lungs: cta b/l, no wheezes/rales/rhonchi Extremities: cold, no edema Results & Data Results & Data ([facility]) Vital Signs (Past 12 Hours) Vital Signs Temp Pulse Resp BP Pulse Ox 01/26/21 02:51 36.3 C L 89 16 138/83 94 01/25/21 22:22 36.9 C 100 H 20 132/78 92 01/25/21 19:17 36.9 C 100 H 20 119/74 94 Laboratory Results 01/26/21 01/26/21 01/26/21 Range/Units 08:32 05:35 05:35 WBC 11.77 H (4.8-10.8) K/uL RBC 3.09 L (4.2-5.4) M/uL Hgb 9.1 L (12.0-16.0) g/dL Hct 29.2 L (37-47) % MCV 94.5 (80-100) fL MCH 29.4 (25-34) pg MCHC 31.2 L (32-36) g/dL RDW Std Deviation 55.7 H (36.4-46.3) fL RDW Coeff of Katina 16.0 H (11.5-14.5) % Plt Count 388 (130-400) K/uL MPV 9.1 (7.4-10.4) fL Immature Gran % (Auto) 0.3 % Neut % (Auto) 69.5 % Lymph % (Auto) 21.8 % [place] % (Auto) 7.0 % Eos % (Auto) 1.1 % Baso % (Auto) 0.3 % Neut # (Auto) 8.18 H (1.4-6.5) K/uL Lymph # (Auto) 2.57 (1.2-3.4) K/uL [place] # (Auto) 0.82 H (0.11-0.59) K/uL Eos # (Auto) 0.13 (0-0.5) K/uL Baso # (Auto) 0.04 (0-0.2) K/uL Immature Gran # (Auto) 0.03 H (0.00-0.02) K/uL Sodium 139 D (136-145) mmol/L Potassium 3.5 (3.5-5.1) mmol/L Chloride 111 H (98-107) mmol/L Carbon Dioxide 22 (21-32) mmol/L Anion Gap 6.0 (3-11) BUN 32 H (7-18) mg/dl Creatinine 2.14 H D (0.6-1.2) mg/dl Est Cr Clr Drug Dosing 33.4 ml/min Est GFR ( Amer) 27.5 ml/min Est GFR (Non-Af Amer) 23.7 ml/min BUN/Creatinine Ratio 15.1 (10-20) Glucose 102 H (70-99) mg/dl POC Glucose 132 H (70-99) mg/dl Estimat Average Glucose mg/dl Hemoglobin A1c (4.5-5.6) % Calcium 8.8 (8.5-10.1) mg/dl Total Bilirubin 0.5 (0.2-1) mg/dl AST 35 (15-37) U/L ALT 30 (12-78) U/L Alkaline Phosphatase 99 (45-117) U/L Total Protein 7.8 (6.4-8.2) gm/dl Albumin 2.1 L (3.4-5.0) gm/dl Globulin 5.7 H (2.5-4.0) gm/dl Albumin/Globulin Ratio 0.4 L (0.9-2) 01/25/21 01/25/21 01/25/21 Range/Units 20:45 16:58 11:32 WBC (4.8-10.8) K/uL RBC (4.2-5.4) M/uL Hgb (12.0-16.0) g/dL Hct (37-47) % MCV (80-100) fL MCH (25-34) pg MCHC (32-36) g/dL RDW Std Deviation (36.4-46.3) fL RDW Coeff of Katina (11.5-14.5) % Plt Count (130-400) K/uL MPV (7.4-10.4) fL Immature Gran % (Auto) % Neut % (Auto) % Lymph % (Auto) % [place] % (Auto) % Eos % (Auto) % Baso % (Auto) % Neut # (Auto) (1.4-6.5) K/uL Lymph # (Auto) (1.2-3.4) K/uL [place] # (Auto) (0.11-0.59) K/uL Eos # (Auto) (0-0.5) K/uL Baso # (Auto) (0-0.2) K/uL Immature Gran # (Auto) (0.00-0.02) K/uL Sodium (136-145) mmol/L Potassium (3.5-5.1) mmol/L Chloride (98-107) mmol/L Carbon Dioxide (21-32) mmol/L Anion Gap (3-11) BUN (7-18) mg/dl Creatinine (0.6-1.2) mg/dl Est Cr Clr Drug Dosing ml/min Est GFR ( Amer) ml/min Est GFR (Non-Af Amer) ml/min BUN/Creatinine Ratio (10-20) Glucose (70-99) mg/dl POC Glucose 105 H 93 145 H (70-99) mg/dl Estimat Average Glucose mg/dl Hemoglobin A1c (4.5-5.6) % Calcium (8.5-10.1) mg/dl Total Bilirubin (0.2-1) mg/dl AST (15-37) U/L ALT (12-78) U/L Alkaline Phosphatase (45-117) U/L Total Protein (6.4-8.2) gm/dl Albumin (3.4-5.0) gm/dl Globulin (2.5-4.0) gm/dl Albumin/Globulin Ratio (0.9-2) 01/25/21 Range/Units 08:06 WBC (4.8-10.8) K/uL RBC (4.2-5.4) M/uL Hgb (12.0-16.0) g/dL Hct (37-47) % MCV (80-100) fL MCH (25-34) pg MCHC (32-36) g/dL RDW Std Deviation (36.4-46.3) fL RDW Coeff of Katina (11.5-14.5) % Plt Count (130-400) K/uL MPV (7.4-10.4) fL Immature Gran % (Auto) % Neut % (Auto) % Lymph % (Auto) % [place] % (Auto) % Eos % (Auto) % Baso % (Auto) % Neut # (Auto) (1.4-6.5) K/uL Lymph # (Auto) (1.2-3.4) K/uL [place] # (Auto) (0.11-0.59) K/uL Eos # (Auto) (0-0.5) K/uL Baso # (Auto) (0-0.2) K/uL Immature Gran # (Auto) (0.00-0.02) K/uL Sodium (136-145) mmol/L Potassium (3.5-5.1) mmol/L Chloride (98-107) mmol/L Carbon Dioxide (21-32) mmol/L Anion Gap (3-11) BUN (7-18) mg/dl Creatinine (0.6-1.2) mg/dl Est Cr Clr Drug Dosing ml/min Est GFR ( Amer) ml/min Est GFR (Non-Af Amer) ml/min BUN/Creatinine Ratio (10-20) Glucose (70-99) mg/dl POC Glucose (70-99) mg/dl Estimat Average Glucose 163 mg/dl Hemoglobin A1c 7.3 H (4.5-5.6) % Calcium (8.5-10.1) mg/dl Total Bilirubin (0.2-1) mg/dl AST (15-37) U/L ALT (12-78) U/L Alkaline Phosphatase (45-117) U/L Total Protein (6.4-8.2) gm/dl Albumin (3.4-5.0) gm/dl Globulin (2.5-4.0) gm/dl Albumin/Globulin Ratio (0.9-2) Medications Administered Current Inpatient Medications Acetaminophen (Acetaminophen 500 Mg Tab) 1,000 mg PO Q6H PRN PRN Reason: pain,fever Stop: 02/24/21 21:52 Last Admin: 01/26/21 08:01 Dose: 1,000 mg Documented by: Dextrose (Dextrose 50% 50 Ml Syringe) 25 - 50 ml IV UD PRN; Protocol PRN Reason: Hypoglycemia Protocol Stop: 02/23/21 12:15 Ertapenem (Ertapenem Consult Active) 1 ea N/A UD PRN PRN Reason: Consult Stop: 02/23/21 11:17 Glucagon (Glucagon For Inj 1 Mg Vial) 1 mg SQ UD PRN; Protocol PRN Reason: Hypoglycemia Protocol Stop: 02/23/21 12:15 Glucose (Glucose 10 Tabs/Tube) 4 - 8 tabs PO UD PRN; Protocol PRN Reason: Hypoglycemia Protocol Stop: 02/23/21 12:15 Glucose (Glucose 40% Gel 15 Gm Tube) 15 - 30 gm PO UD PRN; Protocol PRN Reason: Hypoglycemia Protocol Stop: 02/23/21 12:15 Haloperidol Lactate (Haloperidol Lactate 5 Mg/Ml 1 Ml Vial) 5 mg IM Q8H PRN PRN Reason: Agitation Stop: 02/23/21 12:15 Heparin Sodium (Porcine) (Heparin Sod 5,000 Unit/0.5 Ml Vial) 7,500 units SQ Q8 ELAN Stop: 02/23/21 13:59 Last Admin: 01/26/21 06:24 Dose: 7,500 units Documented by: Ertapenem 500 mg/ Sodium (Chloride) 55 mls @ 110 mls/hr IV Q24H ELAN Stop: 01/27/21 12:29 Last Infusion: 01/25/21 13:13 Dose: Infused Documented by: Sodium Chloride (Nss 1000ml) 1,000 mls @ 100 mls/hr IV .Q10H ELAN Stop: 02/23/21 12:15 Last Admin: 01/26/21 06:24 Dose: 100 mls/hr Documented by: Lorazepam (Ativan) 1 mg in 2 mls @ 1 mls/min IV Q6H PRN PRN Reason: Anxiety/Agitation Stop: 02/23/21 12:15 Last Admin: 01/26/21 08:49 Dose: 1 mls/min Documented by: Daptomycin 500 mg/ Syringe 10 mls @ 5 mls/min IV Q24H ELAN; Protocol Stop: 02/09/21 14:59 Insulin Aspart (Insulin Aspart 100 Units/Ml 3 Ml Pen) 0 units SC ACHS ELAN Stop: 02/24/21 20:59 Last Admin: 01/26/21 09:46 Dose: Not Given Documented by: Miscellaneous (Carbohydrates For Hypoglycemia ) 15 - 30 gm PO UD PRN PRN Reason: Hypoglycemia Protocol Stop: 02/23/21 12:15 Miscellaneous Information (Daptomycin Consult Active) 1 ea N/A UD PRN PRN Reason: Consult Stop: 02/24/21 13:03 Ondansetron HCl (Ondansetron Inj 2 Mg/Ml 2 Ml Vial) 4 mg IV Q6H PRN PRN Reason: Nausea Stop: 02/23/21 12:15 Resident Activity Tracking Resident Involvement: Resident Care Provided Care Provided: Adult Hospital Medicine (1) Catheter-associated urinary tract infection Encounter type: initial encounter Indwelling urinary catheter type: indwelling urethral catheter Qualified Code(s): T83.511A - Infection and inflammatory reaction due to indwelling urethral catheter, initial encounter; N39.0 - Urinary tract infection, site not specified
[2021-01-26 07:28] LABS: Albumin Globulin Ratio 0.4 (0.9-2); Albumin Level 2.1 gm/dl (3.4-5.0); BUN Creatinine Ratio 15.1 (10-20); Bilirubin,Total 0.5 mg/dl (0.2-1); Calcium 8.8 mg/dl (8.5-10.1); Creatinine Clr Calc Pharmacy 33.4 ml/min; Est GFR (African American) 27.5 ml/min; Est GFR (Non-African American) 23.7 ml/min; Globulin 5.7 gm/dl (2.5-4.0); Potassium 3.5 mmol/L (3.5-5.1); Total Protein 7.8 gm/dl (6.4-8.2)
[2021-01-26] MEDS: LORazepam 1 MG/2 ML VIAL IV PRN ×2 (08:49→21:21)
[2021-01-26] MEDS: INSULIN ASPART 100 UNITS/ML 3 ML PEN SC SCH ×4 (09:46→21:22)
--- NOTE | 2021-01-26 10:06 | Urology Progress Note ---
Date of Service January 26, 2021 Assessment & Plan (1) Calculus of proximal right ureter: 66 yo F POD #1 s/p bilateral stent exchange with Dr. Toney. - Doing well, progressing as expected - Afebrile, creatinine improved to 2.14, WBC improved to 11.77 - UC&S showed 3 types of organisms, high counts. BCx 1/2 showing prelim probable Enterococcus. Follow cultures. - Continue supportive care, antibiotics, and management per primary team - Maintain Fallon catheter - Expected clinical course reviewed, all questions answered - Will arrange outpatient follow-up with our service for ongoing management Thank you for allowing us to participate in the acute care of Ms. Hardy. Please reconsult us with additional questions, concerns or changes in patient status. Admission and Anticipated Discharge Date Admission Date: January 24, 2021 Subjective 66 yo F POD #1 s/p bilateral stent exchange with Dr. Toney. Patient seen and examined at bedside in AM. Awake and sitting up in bed eating breakfast. Offers no complaints at present. No flank or abdominal pain. Tolerating Fallon - intact, patent and draining clear yellow urine with small amount of sediment noted. No nausea or vomiting. No fever or chills. No additional concerns today. Chart review: Afebrile. Creatinine 2.14, WBC 11.77, Hgb 9.1. UC&S - three types of organisms present, all high counts. BCx 1/2 showing probable enterococcus. Currently on Ertapenem and Daptomycin. Review of Systems Constitutional: as per Subjective / HPI Gastrointestinal: as per Subjective / HPI Genitourinary: as per Subjective / HPI Physical Exam Constitutional: + obese and comfortable; no acute distress Respiratory: normal respiratory effort and able to speak in complete sentences; no respiratory distress and no labored breathing Gastrointestinal (Abdomen): Inspection/Auscultation: abdomen normal to inspection; abdomen not distended Percussion/Palpation: abdomen soft; abdomen nontender and no guarding Musculoskeletal: Head/Neck/Chest: normocephalic and head atraumatic Skin: Warm and dry Neurologic: awake Psychiatric: Orientation: alert and oriented to person Genitourinary: Fallon intact, patent and draining clear yellow urine with small amount of sediment in tubing Results & Data ([facility]) Vital Signs (Past 12 Hours) Vital Signs Temp Pulse Resp BP Pulse Ox 07/13/21 07:04 36.8 C 87 18 135/78 96 01/26/21 02:51 36.3 C L 89 16 138/83 94 01/25/21 22:22 36.9 C 100 H 20 132/78 92 PG Care Time/CCT Total # of Minutes Spent Total Time Spent with Patient: Total time spent is greater than 50% in coordination of care (as documented) at patient's floor/unit and/or counseling patient: Coding Level of Care Code 02248 Subseq Hosp Care Lvl 2 Diagnoses Calculus of proximal right ureter N20.1
[2021-01-26] MEDS: ERTAPENEM SODIUM 500 MG in SODIUM CHLORIDE 0.9% 50 ML IV SCH (11:45)
[2021-01-26] MEDS: MoRPHine SULFATE 2 MG/ML CARP IV PRN ×2 (12:09→18:38)
[2021-01-26] MEDS: DAPTOmycin 500 MG in SYRINGE 0 ML IV SCH (16:17)
[2021-01-26] MEDS ORDERED: MoRPHine SULFATE 4 MG/ML 1 ML CARP\\VIAL IV PRN (18:35)
[2021-01-27] MEDS: HEPARIN SOD 5,000 UNIT/0.5 ML VIAL SQ SCH ×3 (06:10→21:02)
[2021-01-27 06:32] LABS: Basophils # (auto) 0.03 K/uL (0-0.2); Basophils % (auto) 0.3 %; Eosinophils # (auto) 0.18 K/uL (0-0.5); Eosinophils % (auto) 1.7 %; Hemoglobin 9.4 g/dL (12.0-16.0); Immature Granulocytes # (auto) 0.03 K/uL (0.00-0.02); Immature Granulocytes % (auto) 0.3 %; Lymphocytes # (auto) 2.52 K/uL (1.2-3.4); Lymphocytes % (auto) 23.3 %; Mean Corpuscular Hgb Conc 32.4 g/dL (32-36); Mean Corpuscular Volume 92.7 fL (80-100); Monocytes # (auto) 0.63 K/uL (0.11-0.59); Monocytes % (auto) 5.8 %; Neutrophils # (auto) 7.44 K/uL (1.4-6.5); Neutrophils % (auto) 68.6 %; Platelet Count 364 K/uL (130-400); RDW Coefficient of Variation 15.6 % (11.5-14.5); RDW Standard Deviation 52.7 fL (36.4-46.3); Red Blood Count 3.13 M/uL (4.2-5.4); White Blood Count 10.83 K/uL (4.8-10.8)
[2021-01-27 06:49] LABS: Albumin Level 2.1 gm/dl (3.4-5.0); BUN Creatinine Ratio 15.5 (10-20); Calcium 8.9 mg/dl (8.5-10.1); Creatinine Clr Calc Pharmacy 36.8 ml/min; Est GFR (African American) 30.9 ml/min; Est GFR (Non-African American) 26.7 ml/min; Potassium 3.5 mmol/L (3.5-5.1)
[2021-01-27 06:52] LABS: Albumin Globulin Ratio 0.4 (0.9-2); Bilirubin,Total 0.4 mg/dl (0.2-1); Globulin 5.8 gm/dl (2.5-4.0); Total Protein 7.9 gm/dl (6.4-8.2)
[2021-01-27 08:30] LABS: Appearance Urine Cloudy (Clear); Bilirubin Urine Negative (Negative); Blood Urine 3+ (Negative); Color Urine Yellow; Glucose Urine UA Negative (Negative); Ketones Urine Negative (Negative); Leukocyte Esterase Urine 3+ (Negative); Nitrite Urine Negative (Negative); Protein Urine 1+ (Negative); RBC Urine Automated >30 /hpf (0-4); Specific Gravity Urine 1.008 (1.000-1.030); Urobilinogen Urine Negative (Negative); WBC Urine Automated >30 /hpf (0-5); pH Urine 6.5 (4.5-7.5)
[2021-01-27 09:01] LABS: Bacteria Urine Automated 1+ (Negative)
[2021-01-27] MEDS: INSULIN ASPART 100 UNITS/ML 3 ML PEN SC SCH ×4 (09:44→21:13)
[2021-01-27] MEDS ORDERED: ACETAMINOPHEN 325 MG TAB PO PRN (10:30)
[2021-01-27] MEDS ORDERED: bisacodyL 10 MG SUPP PR PRN (10:30)
[2021-01-27] MEDS ORDERED: ACETAMINOPHEN HOME PACK 500 MG TABLET PO PRN (10:30)
[2021-01-27] MEDS ORDERED: SIMETHICONE 80 MG CHEW PO PRN (10:53)
--- NOTE | 2021-01-27 11:22 | Hospitalist Progress Note ---
Date of Service January 27, 2021 Assessment & Plan (1) Catheter-associated urinary tract infection: Plan: Patient has chronic indwelling engel. Patient blood an urine cultures collected 01/24 results gram positive cocci chains, 01/26 found enterococcus species, / found sensitivity to penicillin. Found 3 organisms in high count in urine 01/26/21. -initially on Ertapenem 500mg Q24, added Daptomycin 500mg Q48, continue both abx -repeat urine culture ordered, pending -patient listed as penicilin allergy, will check (2) Acute kidney injury superimposed on CKD: Plan: Creatinine 2.78 upon admission, with range 1.78-2.10, NSS at 100 mils per hour. IV fluids stopped yesterday. -current creatinine 1.94 (from 2.14) continue to monitor bmp (3) Bacteremia due to Enterococcus: Plan: Blood culture 01/24 revealed enterococcus facialis sensitive to penicillin, currently on ertapenem and daptomycin. -repeating blood culture ordered -echo ordered, no abn detected, rule out endocarditis -check patient penicillin allergy (4) Confusion and disorientation: Plan: Underlying dementia, aggravated by urinary tract infection. Have available Haldol 5 mg IM every 8 hours as needed, and lorazepam 1 mg IV every 6 hours as needed -currently improved, patient conversing intelligently, will contact fpc for baseline mentation (5) Agitation: Plan: see above (6) Calculus of proximal right ureter: Plan: 2 calculi found in proximal right ureter up to 5mm with hydronephrosis. Patient had previous stents placed bilaterally due to previous history of chronic calculi. -Stents were removed and replaced bilaterally by Urology 01/25/21 (7) Hydronephrosis, right: Plan: hydronephrosis of right ureter secondary to calculi -stents replaced by urology (8) Dyslipidemia: Plan: Continue home medications (9) Depression with anxiety: Plan: Continue home medications (10) Diabetes mellitus type 2 in obese: Plan: Currently on sliding scale Novolog, last A1C 7.3 01/25/21 (11) Occupational therapy encounter: Plan: Seen by OT. Nara is dependent for all self care and bedbound at baseline, does not qualify for OT and was discharged from OT Plan: FENa: [] Code Status: DNR/DNI DVT PPX: Heparin PT/OT: PT ordered Case Management: [] Dispo: [] Jazmine Rivero Do PGY 1, FCM Admission and Anticipated Discharge Date Admission Date: January 24, 2021 Supervising Physician Co-Signing Physician Notes Attending attestation Pt seen and examined in concert with Dr. Rivero. In agreement with the documented findings as noted in the resident documentation with any exceptions or additions as noted here. Conversant with reduced confusion, though orientation still poor. Right lower extremity/hip pain is controlled on present regimen, records still pending. On examination, S1/S2 nl RRR no MCG. CTAB. Abd NT/ND BS+ve. CAUTI present on admission - f/u repeat C/S - continue current abx pending repeat urine culture and C/S based on UCx Bacteremia w/ enterococcus - echocardiogram today, continue abx as presently ordered as is sensitive Right nephrolithiasis with hydronephrosis - urology consultation - s/p stent exchange on 01.24, UOP acceptable SOLEDAD on CKD IV - stabilized creatinine - encourage POI. Trend BMP Delirium - likely 2/2 metabolic encephalopathy from infection and underlying dementia - frequent reorientation. ativan 0.5mg and haldol 1mg sparingly for agitation/anxiety Chronic RLE pain - d/w patient re: potential approaches - will obtain outside records and for now support with PRN morphine atop APAP for pain control Else see resident documentation as noted. Subjective 66yo Female in hospital for AMS found to have catheter associated UTI on admit, currently 2 days post b/l ureter stent exchange. Urology wants to continue antibiotics and wants repeat urine culture, wants patient to follow up in outpatient. Patient seen at bedside comfortable, good appetite slept well voiding normally engel catheter in urine yellow and clear. She says her leg pain acted up again last night, 1 dose ativan and morphine 4mg helped. Review of Systems Constitutional: no fever and no chills Eyes: no problem reported Ear, Nose, Mouth, Throat: no hearing loss, no dizziness, no change in voice and no pain with swallowing Respiratory: no cough and no dyspnea Cardiovascular: no chest pain, no palpitations and no edema Gastrointestinal: no abdominal pain, no nausea, no vomiting, no constipation and no diarrhea/loose stools Genitourinary: no dysuria Musculoskeletal: + joint pain Integumentary: no rash, no skin ulcer, no erythema, no skin swelling and no change in skin color Neurologic: no tingling, no numbness, no dizziness, no headache(s) and no confusion Physical Exam Constitutional: WD/WN, vitals as above Eyes: PERRL, conjunctivae normal, anicteric sclerae Respiratory: normal respiratory effort, lungs clear to auscultation no cough and no audible wheezes Cardiovascular: RRR, no murmur, no edema Rate/Rhythm: regular rate and regular rhythm Heart Sounds: normal S1 and normal S2; no gallop, no murmur and no cardiac rub Gastrointestinal (Abdomen): normal bowel sounds, soft, nontender, no hepatosplenomegaly Inspection/Auscultation: abdomen not distended Percussion/Palpation: abdomen nontender Musculoskeletal: no cyanosis or clubbing, extremities motor strength 5/5 Skin: no rashes, warm and dry no rashes Neurologic: PERRL, EOMI, accommodation nl, no face palsy, no dysarthria Results & Data Results & Data ([facility]) Vital Signs (Past 12 Hours) Vital Signs Temp Pulse Resp BP Pulse Ox 01/27/21 06:12 36.8 C 89 18 101/66 96 Laboratory Results 01/27/21 01/27/21 01/27/21 Range/Units Unknown 07:54 05:54 WBC (4.8-10.8) K/uL RBC (4.2-5.4) M/uL Hgb (12.0-16.0) g/dL Hct (37-47) % MCV (80-100) fL MCH (25-34) pg MCHC (32-36) g/dL RDW Std Deviation (36.4-46.3) fL RDW Coeff of Katina (11.5-14.5) % Plt Count (130-400) K/uL MPV (7.4-10.4) fL Immature Gran % (Auto) % Neut % (Auto) % Lymph % (Auto) % [place] % (Auto) % Eos % (Auto) % Baso % (Auto) % Neut # (Auto) (1.4-6.5) K/uL Lymph # (Auto) (1.2-3.4) K/uL [place] # (Auto) (0.11-0.59) K/uL Eos # (Auto) (0-0.5) K/uL Baso # (Auto) (0-0.2) K/uL Immature Gran # (Auto) (0.00-0.02) K/uL Sodium 138 (136-145) mmol/L Potassium 3.5 (3.5-5.1) mmol/L Chloride 109 H (98-107) mmol/L Carbon Dioxide 24 (21-32) mmol/L Anion Gap 5.0 (3-11) BUN 30 H (7-18) mg/dl Creatinine 1.94 H (0.6-1.2) mg/dl Est Cr Clr Drug Dosing 36.8 ml/min Est GFR ( Amer) 30.9 ml/min Est GFR (Non-Af Amer) 26.7 ml/min BUN/Creatinine Ratio 15.5 (10-20) Glucose 113 H (70-99) mg/dl POC Glucose 127 H (70-99) mg/dl Calcium 8.9 (8.5-10.1) mg/dl Total Bilirubin 0.4 (0.2-1) mg/dl AST 29 (15-37) U/L ALT 28 (12-78) U/L Alkaline Phosphatase 99 (45-117) U/L Total Protein 7.9 (6.4-8.2) gm/dl Albumin 2.1 L (3.4-5.0) gm/dl Globulin 5.8 H (2.5-4.0) gm/dl Albumin/Globulin Ratio 0.4 L (0.9-2) Urine Color Yellow Urine Appearance Cloudy A Urine pH 6.5 Ur Specific Wake 1.008 Urine Protein 1+ H Urine Glucose (UA) Negative Urine Ketones Negative Urine Blood 3+ H Urine Nitrite Negative Urine Bilirubin Negative Urine Urobilinogen Negative Ur Leukocyte Esterase 3+ H Urine WBC (Auto) >30 H Urine RBC (Auto) >30 H U Hyaline Cast (Auto) 1-5 U Epithel Cells (Auto) 5-10 H Urine Bacteria (Auto) 1+ H Ur Renal Epithelial Cell Urine Crystals Calcium Oxalate Crystal Uric Acid Crystals Triple Phos Crystals Other Crystals Amorphous Sediment Granular Casts Waxy Casts RBC Casts WBC Casts Other Casts Urine Mucus Urine Other Urine Trichomonas Urine Yeast Not Reportable Urine Sperm Ur Oval Fat Bodies Stool Occult Bld Scrn (Negative) 01/27/21 01/26/2121 Range/Units 05:54 Unknown Unknown WBC 10.83 H (4.8-10.8) K/uL RBC 3.13 L (4.2-5.4) M/uL Hgb 9.4 L (12.0-16.0) g/dL Hct 29.0 L (37-47) % MCV 92.7 (80-100) fL MCH 30.0 (25-34) pg MCHC 32.4 (32-36) g/dL RDW Std Deviation 52.7 H (36.4-46.3) fL RDW Coeff of Katina 15.6 H (11.5-14.5) % Plt Count 364 (130-400) K/uL MPV 9.0 (7.4-10.4) fL Immature Gran % (Auto) 0.3 % Neut % (Auto) 68.6 % Lymph % (Auto) 23.3 % [place] % (Auto) 5.8 % Eos % (Auto) 1.7 % Baso % (Auto) 0.3 % Neut # (Auto) 7.44 H (1.4-6.5) K/uL Lymph # (Auto) 2.52 (1.2-3.4) K/uL [place] # (Auto) 0.63 H (0.11-0.59) K/uL Eos # (Auto) 0.18 (0-0.5) K/uL Baso # (Auto) 0.03 (0-0.2) K/uL Immature Gran # (Auto) 0.03 H (0.00-0.02) K/uL Sodium (136-145) mmol/L Potassium (3.5-5.1) mmol/L Chloride (98-107) mmol/L Carbon Dioxide (21-32) mmol/L Anion Gap (3-11) BUN (7-18) mg/dl Creatinine (0.6-1.2) mg/dl Est Cr Clr Drug Dosing ml/min Est GFR ( Amer) ml/min Est GFR (Non-Af Amer) ml/min BUN/Creatinine Ratio (10-20) Glucose (70-99) mg/dl POC Glucose (70-99) mg/dl Calcium (8.5-10.1) mg/dl Total Bilirubin (0.2-1) mg/dl AST (15-37) U/L ALT (12-78) U/L Alkaline Phosphatase (45-117) U/L Total Protein (6.4-8.2) gm/dl Albumin (3.4-5.0) gm/dl Globulin (2.5-4.0) gm/dl Albumin/Globulin Ratio (0.9-2) Urine Color Cancelled Urine Appearance Cancelled Urine pH Cancelled Ur Specific Wake Cancelled Urine Protein Cancelled Urine Glucose (UA) Cancelled Urine Ketones Cancelled Urine Blood Cancelled Urine Nitrite Cancelled Urine Bilirubin Cancelled Urine Urobilinogen Cancelled Ur Leukocyte Esterase Cancelled Urine WBC (Auto) Cancelled Urine RBC (Auto) Cancelled U Hyaline Cast (Auto) Cancelled U Epithel Cells (Auto) Cancelled Urine Bacteria (Auto) Cancelled Ur Renal Epithelial Cell Cancelled Urine Crystals Cancelled Calcium Oxalate Crystal Cancelled Uric Acid Crystals Cancelled Triple Phos Crystals Cancelled Other Crystals Cancelled Amorphous Sediment Cancelled Granular Casts Cancelled Waxy Casts Cancelled RBC Casts Cancelled WBC Casts Cancelled Other Casts Cancelled Urine Mucus Cancelled Urine Other Cancelled Urine Trichomonas Cancelled Urine Yeast Cancelled Urine Sperm Cancelled Ur Oval Fat Bodies Cancelled Stool Occult Bld Scrn Negative (Negative) 01/26/21 01/26/21 01/26/21 Range/Units 20:43 17:10 12:28 WBC (4.8-10.8) K/uL RBC (4.2-5.4) M/uL Hgb (12.0-16.0) g/dL Hct (37-47) % MCV (80-100) fL MCH (25-34) pg MCHC (32-36) g/dL RDW Std Deviation (36.4-46.3) fL RDW Coeff of Katina (11.5-14.5) % Plt Count (130-400) K/uL MPV (7.4-10.4) fL Immature Gran % (Auto) % Neut % (Auto) % Lymph % (Auto) % [place] % (Auto) % Eos % (Auto) % Baso % (Auto) % Neut # (Auto) (1.4-6.5) K/uL Lymph # (Auto) (1.2-3.4) K/uL [place] # (Auto) (0.11-0.59) K/uL Eos # (Auto) (0-0.5) K/uL Baso # (Auto) (0-0.2) K/uL Immature Gran # (Auto) (0.00-0.02) K/uL Sodium (136-145) mmol/L Potassium (3.5-5.1) mmol/L Chloride (98-107) mmol/L Carbon Dioxide (21-32) mmol/L Anion Gap (3-11) BUN (7-18) mg/dl Creatinine (0.6-1.2) mg/dl Est Cr Clr Drug Dosing ml/min Est GFR ( Amer) ml/min Est GFR (Non-Af Amer) ml/min BUN/Creatinine Ratio (10-20) Glucose (70-99) mg/dl POC Glucose 111 H 95 114 H (70-99) mg/dl Calcium (8.5-10.1) mg/dl Total Bilirubin (0.2-1) mg/dl AST (15-37) U/L ALT (12-78) U/L Alkaline Phosphatase (45-117) U/L Total Protein (6.4-8.2) gm/dl Albumin (3.4-5.0) gm/dl Globulin (2.5-4.0) gm/dl Albumin/Globulin Ratio (0.9-2) Urine Color Urine Appearance Urine pH Ur Specific Wake Urine Protein Urine Glucose (UA) Urine Ketones Urine Blood Urine Nitrite Urine Bilirubin Urine Urobilinogen Ur Leukocyte Esterase Urine WBC (Auto) Urine RBC (Auto) U Hyaline Cast (Auto) U Epithel Cells (Auto) Urine Bacteria (Auto) Ur Renal Epithelial Cell Urine Crystals Calcium Oxalate Crystal Uric Acid Crystals Triple Phos Crystals Other Crystals Amorphous Sediment Granular Casts Waxy Casts RBC Casts WBC Casts Other Casts Urine Mucus Urine Other Urine Trichomonas Urine Yeast Urine Sperm Ur Oval Fat Bodies Stool Occult Bld Scrn (Negative) Medications Administered Current Inpatient Medications Acetaminophen (Acetaminophen 500 Mg Tab) 1,000 mg PO Q6H PRN PRN Reason: pain,fever Stop: 02/24/21 21:52 Last Admin: 01/26/21 08:01 Dose: 1,000 mg Documented by: Hydrocodone Bitart/Acetaminophen (Hydrocodone/Acetamophen 5/325mg Tab) 1 tab PO BID ELAN Stop: 02/10/21 10:59 Baclofen (Baclofen 10 Mg Tab) 10 mg PO TID ELAN Stop: 02/26/21 13:59 Bisacodyl (Bisacodyl 10 Mg Supp) [address] DAILY PRN PRN Reason: Constipation Stop: 02/26/21 10:29 Bupropion HCl (Bupropion Xl 300 Mg Tabcr) 300 mg PO QAM ELAN Stop: 02/26/21 10:59 Buspirone HCl (Buspirone 15 Mg Tab) 15 mg PO BID [facility] Stop: 02/26/21 10:59 Dextrose (Dextrose 50% 50 Ml Syringe) 25 - 50 ml IV UD PRN; Protocol PRN Reason: Hypoglycemia Protocol Stop: 02/23/21 12:15 Duloxetine HCl (Duloxetine Hcl 60 Mg Cap) 60 mg PO QAM [facility] Stop: 02/26/21 10:59 Ertapenem (Ertapenem Consult Active) 1 ea N/A UD PRN PRN Reason: Consult Stop: 02/23/21 11:17 Famotidine (Famotidine 20 Mg Tab) 20 mg PO BID [facility] Stop: 02/26/21 10:59 Ferrous Sulfate (Ferrous Sulfate 325 Mg Tab) 325 mg PO QAM ELAN Stop: 02/27/21 08:59 Gabapentin (Gabapentin 400 Mg Cap) 800 mg PO TID [facility] Stop: 02/26/21 13:59 Glucagon (Glucagon For Inj 1 Mg Vial) 1 mg SQ UD PRN; Protocol PRN Reason: Hypoglycemia Protocol Stop: 02/23/21 12:15 Glucose (Glucose 10 Tabs/Tube) 4 - 8 tabs PO UD PRN; Protocol PRN Reason: Hypoglycemia Protocol Stop: 02/23/21 12:15 Glucose (Glucose 40% Gel 15 Gm Tube) 15 - 30 gm PO UD PRN; Protocol PRN Reason: Hypoglycemia Protocol Stop: 02/23/21 12:15 Haloperidol Lactate (Haloperidol Lactate 5 Mg/Ml 1 Ml Vial) 5 mg IM Q8H PRN PRN Reason: Agitation Stop: 02/23/21 12:15 Heparin Sodium (Porcine) (Heparin Sod 5,000 Unit/0.5 Ml Vial) 7,500 units SQ Q8 ELAN Stop: 02/23/21 13:59 Last Admin: 01/27/21 06:10 Dose: 7,500 units Documented by: Ertapenem 500 mg/ Sodium (Chloride) 55 mls @ 110 mls/hr IV Q24H ELAN Stop: 01/27/21 12:29 Last Infusion: 01/26/21 12:28 Dose: Infused Documented by: Lorazepam (Ativan) 1 mg in 2 mls @ 1 mls/min IV Q6H PRN PRN Reason: Anxiety/Agitation Stop: 02/23/21 12:15 Last Admin: 01/26/21 21:21 Dose: 1 mls/min Documented by: Daptomycin 500 mg/ Syringe 10 mls @ 5 mls/min IV Q24H ELAN; Protocol Stop: 02/09/21 14:59 Last Admin: 01/26/21 16:17 Dose: 5 mls/min Documented by: Insulin Aspart (Insulin Aspart 100 Units/Ml 3 Ml Pen) 0 units SC ACHS [facility] Stop: 02/24/21 20:59 Last Admin: 01/27/21 09:44 Dose: 5 units Documented by: Melatonin (Melatonin 3 Mg Tab) 6 mg PO HS [facility] Stop: 02/26/21 20:59 Miscellaneous (Carbohydrates For Hypoglycemia ) 15 - 30 gm PO UD PRN PRN Reason: Hypoglycemia Protocol Stop: 02/23/21 12:15 Miscellaneous Information (Daptomycin Consult Active) 1 ea N/A UD PRN PRN Reason: Consult Stop: 02/24/21 13:03 Morphine Sulfate (Morphine Sulfate 2 Mg/Ml Carp) 2 mg IV Q4 PRN PRN Reason: Pain (1,2,3,4,5) & Pre PT Stop: 02/09/21 11:51 Last Admin: 01/26/21 18:38 Dose: 2 mg Documented by: Morphine Sulfate (Morphine Sulfate 4 Mg/Ml 1 Ml Carp\Vial) 4 mg IV Q4 PRN PRN Reason: Pain (6,7,8,9,10) Stop: 02/09/21 18:34 Last Admin: 01/27/21 06:09 Dose: 4 mg Documented by: Multivitamins (Multivitamin Tab) 1 tab PO QAM [facility] Stop: 02/26/21 10:59 Ondansetron HCl (Ondansetron Inj 2 Mg/Ml 2 Ml Vial) 4 mg IV Q6H PRN PRN Reason: Nausea Stop: 02/23/21 12:15 Senna/Docusate Sodium (Docusate Sodium/Senna 50/8.6mg Tab) 1 tab PO BID ELAN Stop: 02/26/21 10:59 Simethicone (Simethicone 80 Mg Chew) 80 mg PO BID PRN PRN Reason: Dyspepsia Stop: 02/26/21 10:52 Tramadol HCl (Tramadol Hcl 50 Mg Tablet) 50 mg PO BID PRN PRN Reason: Pain level 5-10 Stop: 02/26/21 10:29 Vitamin B Complex (Vitamin B Complex Tab) 1 tab PO QAM [facility] Stop: 02/26/21 10:59 Vitamin D (Cholecalciferol 1,000 Units 25 Mcg Tab) 5,000 units PO QAM ELAN Stop: 02/26/21 10:59 Resident Activity Tracking Resident Involvement: Resident Care Provided Care Provided: Adult Hospital Medicine (1) Catheter-associated urinary tract infection Encounter type: initial encounter Indwelling urinary catheter type: indwellin g urethral catheter Qualified Code(s): T83.511A - Infection and inflammatory reaction due to indwelling urethral catheter, initial encounter; N39.0 - Urinary tract infection, site not specified
[2021-01-27] MEDS: MULTIVITAMIN TAB PO SCH (12:26)
[2021-01-27] MEDS: FAMOTIDINE 20 MG TAB PO SCH ×2 (12:26→21:02)
[2021-01-27] MEDS: VITAMIN B COMPLEX TAB PO SCH (12:26)
[2021-01-27] MEDS: busPIRone 15 MG TAB PO SCH ×2 (12:26→21:02)
[2021-01-27] MEDS: buPROPion XL 300 MG TABCR PO SCH (12:27)
[2021-01-27] MEDS: CHOLECALCIFEROL 1,000 UNITS 25 MCG TAB PO SCH (12:27)
[2021-01-27] MEDS: DULoxetine HCL 60 MG CAP PO SCH (12:27)
[2021-01-27] MEDS: DOCUSATE SODIUM/SENNA 50/8.6MG TAB PO SCH ×2 (12:27→21:01)
[2021-01-27] MEDS: HYDROCODONE/ACETAMOPHEN 5/325MG TAB PO SCH ×2 (12:32→21:01)
[2021-01-27] MEDS: GABAPENTIN 400 MG CAP PO SCH ×2 (13:06→21:02)
[2021-01-27] MEDS: BACLOFEN 10 MG TAB PO SCH ×2 (13:06→21:01)
[2021-01-27] MEDS: DAPTOmycin 500 MG in SYRINGE 0 ML IV SCH (16:01)
--- NOTE | 2021-01-27 16:57 | XCELERA ---
[id number]
[2021-01-27] MEDS: ERTAPENEM SODIUM 500 MG in SODIUM CHLORIDE 0.9% 50 ML IV SCH (18:22)
[2021-01-27] MEDS: MELATONIN 3 MG TAB PO SCH (20:59)
[2021-01-27] MEDS: LORazepam 1 MG/2 ML VIAL IV PRN (21:00)
[2021-01-28] MEDS: HEPARIN SOD 5,000 UNIT/0.5 ML VIAL SQ SCH ×3 (07:04→21:22)
--- NOTE | 2021-01-28 07:25 | Hospitalist Progress Note ---
Date of Service January 28, 2021 Assessment & Plan (1) Catheter-associated urinary tract infection: Plan: Patient has chronic indwelling engel, cateter-associated UTI present on admittion. Patient blood an urine cultures collected 01/24 results gram positive cocci chains, 01/26 found enterococcus species, 01/27 found sensitivity to penicillin, patient has anaphylactic allergy to penicillin so it was removed from consideration. Found 3 organisms in high count in urine 01/26/21. -initially on Ertapenem 500mg Q24, added Daptomycin 500mg Q48, continue both abx -repeat urine culture ordered, pending (2) Acute kidney injury superimposed on CKD: Plan: Creatinine 2.78 upon admission, with range 1.78-2.10, NSS at 100 mils per hour. IV fluids stopped yesterday. -current creatinine 2.41 (from 1.94), fluid input 1075 output 2950 may be due to dehydration, WBC 9.56, urine in engel yellow clear, soledad unlikely due to infectious or postrenal etiology -continue to monitor bmp cbc i/o (3) Bacteremia due to Enterococcus: Plan: Blood culture 01/24 revealed enterococcus facialis sensitive to penicillin, patient allergy anaphylaxis to penicillin, Currently on ertapenem and daptomycin. Echo ordered,mild diastolic dysfunction study limited. -repeat blood culture ordered 01/27 pending -continue ertapenem, daptomycin (4) Confusion and disorientation: Plan: Underlying dementia, aggravated by urinary tract infection. Have available Haldol 5 mg IM every 8 hours as needed, and lorazepam 1 mg IV every 6 hours as needed -currently improved, patient conversing intelligently, will contact senior living for baseline mentation (5) Agitation: Plan: see above (6) Calculus of proximal right ureter: Plan: 2 calculi found in proximal right ureter up to 5mm with hydronephrosis. Patient had previous stents placed bilaterally due to previous history of chronic calculi. Stents were removed and replaced bilaterally by Urology 01/25/21 (7) Hydronephrosis, right: Plan: Hydronephrosis of right ureter secondary to calculi. Stents replaced by urology 01/24/21 (8) Dyslipidemia: Plan: Continue home medications (9) Depression with anxiety: Plan: Continue home medications -resumed 01/27/21 melatonin, duloxetine, duspirone, bupropion (10) Diabetes mellitus type 2 in obese: Plan: Currently on sliding scale Novolog, last A1C 7.3 01/25/21 -currenty glucose 108 (11) Occupational therapy encounter: Plan: Seen by OT. Patient is dependent for all self care and bedbound at baseline, does not qualify for OT and was discharged from OT 12) PT -seen by PT, PT not indicated at his time 13) Chronic Pain -resumed home medications 01/27/21 hydrocodone/acetaminophen, baclofen, gabapentine, has tramadol PRN Plan: FENa: [] Code Status: DNR/DNI DVT PPX: Heparin PT/OT: seen by PT/OT, not indicated at this time Case Management: [return to [facility] when medically stable] Dispo: [carb consistent heart healthy diet] Jazmine Rivero Do PGY 1, FCM Admission and Anticipated Discharge Date Admission Date: January 24, 2021 Supervising Physician Co-Signing Physician Notes Attending attestation Pt seen and examined in concert with Dr. Rivero. In agreement with the documented findings as noted in the resident documentation with any exceptions or additions as noted here. Continued improvement in RLE pain without urinary symptoms at present. On examination, S1/S2 nl RRR no MCG. CTAB. Abd NT/ND BS+ve. CAUTI present on admission - continue current abx pending repeat urine culture and C/S based on UCx Bacteremia w/ enterococcus - continue abx as presently ordered as is sensitive, to adjust based on UCx Right nephrolithiasis with hydronephrosis - urology consultation - s/p stent exchange on 01.24, UOP acceptable SOLEDAD on CKD IV - bump in Cr to 2.4 - no apparent nephrotoxic medications, UOP or signs of infection - encourage hydration, consider small IVF bolus and repeat in AM. Baseline may be ~2.2 Delirium - likely 2/2 metabolic encephalopathy from infection and underlying dementia - AAOx3 and doing well, reorient with confusion, use ativan for anxiety sparingly. Chronic RLE pain - d/w patient re: potential approaches - waiting on outside records, pain well controlled with home regimen and PRN morphine Else see resident documentation as noted. Subjective 66yo Female admitted to hospital for AMS right sided nephrolithiasis had b/l ureter stent replacement 01/24. Urology says UPO is fine. Echo performed yesterday noted mild diastolic dysfunction rest of study limited. Home medications were resumed yesterday. Patient seen at bedside, slept ate well voided normally, she says her leg pain is still there but much improved. Per nurse she refused heparin,took 1mg ativan which helped her sleep. Currently awaiting urine cultures. PMH: CKD 3B, catheter associated UTI, DM2, depression/anxiety, GERD, obesity, UC, dyslipidemia Review of Systems Constitutional: no fever and no chills Eyes: no problem reported Ear, Nose, Mouth, Throat: no hearing loss, no dizziness, no change in voice a nd no pain with swallowing Respiratory: no cough and no dyspnea Cardiovascular: no chest pain, no palpitations and no edema Gastrointestinal: no abdominal pain, no nausea, no vomiting, no constipation and no diarrhea/loose stools Genitourinary: no dysuria Musculoskeletal: + joint pain Integumentary: no rash, no skin ulcer, no erythema, no skin swelling and no change in skin color Neurologic: no tingling, no numbness, no dizziness, no headache(s) and no confusion Physical Exam Constitutional: WD/WN, vitals as above Eyes: PERRL, conjunctivae normal, anicteric sclerae Respiratory: normal respiratory effort, lungs clear to auscultation no cough and no audible wheezes Cardiovascular: RRR, no murmur, no edema Rate/Rhythm: regular rate and regular rhythm Heart Sounds: normal S1 and normal S2; no gallop, no murmur and no cardiac rub Gastrointestinal (Abdomen): normal bowel sounds, soft, nontender, no hepatosplenomegaly Inspection/Auscultation: abdomen not distended Percussion/Palpation: abdomen nontender Musculoskeletal: no cyanosis or clubbing, extremities motor strength 5/5 Skin: no rashes, warm and dry no rashes Neurologic: PERRL, EOMI, accommodation nl, no face palsy, no dysarthria Results & Data Results & Data ([facility]) Vital Signs (Past 12 Hours) Vital Signs Temp Pulse Resp BP Pulse Ox 01/27/21 23:24 36.6 C 93 H 16 107/70 94 Laboratory Results 01/28/21 01/28/21 01/28/21 Range/Units 11:46 08:08 06:06 WBC 9.56 (4.8-10.8) K/uL RBC 3.34 L (4.2-5.4) M/uL Hgb 10.1 L (12.0-16.0) g/dL Hct 31.3 L (37-47) % MCV 93.7 (80-100) fL MCH 30.2 (25-34) pg MCHC 32.3 (32-36) g/dL RDW Std Deviation 54.0 H (36.4-46.3) fL RDW Coeff of Katina 15.9 H (11.5-14.5) % Plt Count 375 (130-400) K/uL MPV 9.6 (7.4-10.4) fL Immature Gran % (Auto) 0.2 % Neut % (Auto) 63.0 % Lymph % (Auto) 26.2 % [place] % (Auto) 7.5 % Eos % (Auto) 2.7 % Baso % (Auto) 0.4 % Neut # (Auto) 6.02 (1.4-6.5) K/uL Lymph # (Auto) 2.50 (1.2-3.4) K/uL [place] # (Auto) 0.72 H (0.11-0.59) K/uL Eos # (Auto) 0.26 (0-0.5) K/uL Baso # (Auto) 0.04 (0-0.2) K/uL Immature Gran # (Auto) 0.02 (0.00-0.02) K/uL Sodium (136-145) mmol/L Potassium (3.5-5.1) mmol/L Chloride (98-107) mmol/L Carbon Dioxide (21-32) mmol/L Anion Gap (3-11) BUN (7-18) mg/dl Creatinine (0.6-1.2) mg/dl Est Cr Clr Drug Dosing ml/min Est GFR ( Amer) ml/min Est GFR (Non-Af Amer) ml/min BUN/Creatinine Ratio (10-20) Glucose (70-99) mg/dl POC Glucose 141 H 144 H (70-99) mg/dl Calcium (8.5-10.1) mg/dl 01/28/21 01/27/21 01/27/21 Range/Units 06:05 20:48 16:38 WBC (4.8-10.8) K/uL RBC (4.2-5.4) M/uL Hgb (12.0-16.0) g/dL Hct (37-47) % MCV (80-100) fL MCH (25-34) pg MCHC (32-36) g/dL RDW Std Deviation (36.4-46.3) fL RDW Coeff of Katina (11.5-14.5) % Plt Count (130-400) K/uL MPV (7.4-10.4) fL Immature Gran % (Auto) % Neut % (Auto) % Lymph % (Auto) % [place] % (Auto) % Eos % (Auto) % Baso % (Auto) % Neut # (Auto) (1.4-6.5) K/uL Lymph # (Auto) (1.2-3.4) K/uL [place] # (Auto) (0.11-0.59) K/uL Eos # (Auto) (0-0.5) K/uL Baso # (Auto) (0-0.2) K/uL Immature Gran # (Auto) (0.00-0.02) K/uL Sodium 138 (136-145) mmol/L Potassium 3.9 (3.5-5.1) mmol/L Chloride 108 H (98-107) mmol/L Carbon Dioxide 23 (21-32) mmol/L Anion Gap 8.0 (3-11) BUN 36 H (7-18) mg/dl Creatinine 2.41 H D (0.6-1.2) mg/dl Est Cr Clr Drug Dosing 29.6 ml/min Est GFR ( Amer) 23.8 ml/min Est GFR (Non-Af Amer) 20.5 ml/min BUN/Creatinine Ratio 14.9 (10-20) Glucose 108 H (70-99) mg/dl POC Glucose 115 H 106 H (70-99) mg/dl Calcium 9.3 (8.5-10.1) mg/dl Medications Administered Current Inpatient Medications Acetaminophen (Acetaminophen 500 Mg Tab) 1,000 mg PO Q6H PRN PRN Reason: pain,fever Stop: 02/24/21 21:52 Last Admin: 01/26/21 08:01 Dose: 1,000 mg Documented by: Hydrocodone Bitart/Acetaminophen (Hydrocodone/Acetamophen 5/325mg Tab) 1 tab PO BID [facility] Stop: 02/10/21 10:59 Last Admin: 01/28/21 08:15 Dose: 1 tab Documented by: Baclofen (Baclofen 10 Mg Tab) 10 mg PO TID [facility] Stop: 02/26/21 13:59 Last Admin: 01/28/21 12:39 Dose: 10 mg Documented by: Bisacodyl (Bisacodyl 10 Mg Supp) 10 mg AL DAILY PRN PRN Reason: Constipation Stop: 02/26/21 10:29 Bupropion HCl (Bupropion Xl 300 Mg Tabcr) 300 mg PO QAM [facility] Stop: 02/26/21 10:59 Last Admin: 01/28/21 08:06 Dose: 300 mg Documented by: Buspirone HCl (Buspirone 15 Mg Tab) 15 mg PO BID [facility] Stop: 02/26/21 10:59 Last Admin: 01/28/21 08:04 Dose: 15 mg Documented by: Dextrose (Dextrose 50% 50 Ml Syringe) 25 - 50 ml IV UD PRN; Protocol PRN Reason: Hypoglycemia Protocol Stop: 02/23/21 12:15 Duloxetine HCl (Duloxetine Hcl 60 Mg Cap) 60 mg PO QAM [facility] Stop: 02/26/21 10:59 Last Admin: 01/28/21 08:06 Dose: 60 mg Documented by: Ertapenem (Ertapenem Consult Active) 1 ea N/A UD PRN PRN Reason: Consult Stop: 02/23/21 11:17 Famotidine (Famotidine 20 Mg Tab) 20 mg PO BID [facility] Stop: 02/26/21 10:59 Last Admin: 01/28/21 08:04 Dose: 20 mg Documented by: Ferrous Sulfate (Ferrous Sulfate 325 Mg Tab) 325 mg PO QAM [facility] Stop: 02/27/21 08:59 Last Admin: 01/28/21 08:06 Dose: 325 mg Documented by: Gabapentin (Gabapentin 400 Mg Cap) 800 mg PO TID [facility] Stop: 02/26/21 13:59 Last Admin: 01/28/21 12:39 Dose: 800 mg Documented by: Glucagon (Glucagon For Inj 1 Mg Vial) 1 mg SQ UD PRN; Protocol PRN Reason: Hypoglycemia Protocol Stop: 02/23/21 12:15 Glucose (Glucose 10 Tabs/Tube) 4 - 8 tabs PO UD PRN; Protocol PRN Reason: Hypoglycemia Protocol Stop: 02/23/21 12:15 Glucose (Glucose 40% Gel 15 Gm Tube) 15 - 30 gm PO UD PRN; Protocol PRN Reason: Hypoglycemia Protocol Stop: 02/23/21 12:15 Haloperidol Lactate (Haloperidol Lactate 5 Mg/Ml 1 Ml Vial) 5 mg IM Q8H PRN PRN Reason: Agitation Stop: 02/23/21 12:15 Heparin Sodium (Porcine) (Heparin Sod 5,000 Unit/0.5 Ml Vial) 7,500 units SQ Q8 [facility] Stop: 02/23/21 13:59 Last Admin: 01/28/21 12:39 Dose: 7,500 units Documented by: Lorazepam (Ativan) 1 mg in 2 mls @ 1 mls/min IV Q6H PRN PRN Reason: Anxiety/Agitation Stop: 02/23/21 12:15 Last Admin: 01/27/21 21:00 Dose: 1 mls/min Documented by: Daptomycin 500 mg/ Syringe 10 mls @ 5 mls/min IV Q24H ELAN; Protocol Stop: 02/09/21 14:59 Last Admin: 01/27/21 16:01 Dose: 5 mls/min Documented by: Ertapenem 500 mg/ Sodium (Chloride) 55 mls @ 110 mls/hr IV Q24H [facility] Stop: 01/29/21 16:59 Last Infusion: 01/27/21 19:20 Dose: Infused Documented by: Insulin Aspart (Insulin Aspart 100 Units/Ml 3 Ml Pen) 0 units SC ACHS [facility] Stop: 02/24/21 20:59 Last Admin: 01/28/21 12:34 Dose: 3 units Documented by: Melatonin (Melatonin 3 Mg Tab) 6 mg PO HS [facility] Stop: 02/26/21 20:59 Last Admin: 01/27/21 20:59 Dose: 6 mg Documented by: Miconazole Nitrate (Miconazole Nitrate Powder 43 Gm) 1 appln EXT PRN PRN PRN Reason: Affected Skin Folds Stop: 02/27/21 11:01 Miscellaneous (Carbohydrates For Hypoglycemia ) 15 - 30 gm PO UD PRN PRN Reason: Hypoglycemia Protocol Stop: 02/23/21 12:15 Miscellaneous Information (Daptomycin Consult Active) 1 ea N/A UD PRN PRN Reason: Consult Stop: 02/24/21 13:03 Multivitamins (Multivitamin Tab) 1 tab PO QAM [facility] Stop: 02/26/21 10:59 Last Admin: 01/28/21 08:05 Dose: 1 tab Documented by: Ondansetron HCl (Ondansetron Inj 2 Mg/Ml 2 Ml Vial) 4 mg IV Q6H PRN PRN Reason: Nausea Stop: 02/23/21 12:15 Senna/Docusate Sodium (Docusate Sodium/Senna 50/8.6mg Tab) 1 tab PO BID [facility] Stop: 02/26/21 10:59 Last Admin: 01/28/21 08:04 Dose: 1 tab Documented by: Simethicone (Simethicone 80 Mg Chew) 80 mg PO BID PRN PRN Reason: Dyspepsia Stop: 02/26/21 10:52 Tramadol HCl (Tramadol Hcl 50 Mg Tablet) 50 mg PO BID PRN PRN Reason: Pain level 5-10 Stop: 02/26/21 10:29 Vitamin B Complex (Vitamin B Complex Tab) 1 tab PO [facility] Stop: 02/26/21 10:59 Last Admin: 01/28/21 08:06 Dose: 1 tab Documented by: Vitamin D (Cholecalciferol 1,000 Units 25 Mcg Tab) 5,000 units PO QAM [facility] Stop: 02/26/21 10:59 Last Admin: 01/28/21 08:04 Dose: 5,000 units Documented by: Resident Activity Tracking Resident Involvement: Resident Care Provided Care Provided: Adult Hospital Medicine (1) Catheter-associated urinary tract infection Encounter type: initial encounter Indwelling urinary catheter type: indwelling urethral catheter Qualified Code(s): T83.511A - Infection and inflammatory reaction due to indwelling urethral catheter, initial encounter; N39.0 - Urinary tract infection, site not specified
[2021-01-28 07:35] LABS: BUN Creatinine Ratio 14.9 (10-20); Calcium 9.3 mg/dl (8.5-10.1); Creatinine Clr Calc Pharmacy 29.6 ml/min; Est GFR (African American) 23.8 ml/min; Est GFR (Non-African American) 20.5 ml/min; Potassium 3.9 mmol/L (3.5-5.1)
[2021-01-28] MEDS: BACLOFEN 10 MG TAB PO SCH ×3 (08:03→20:12)
[2021-01-28] MEDS: CHOLECALCIFEROL 1,000 UNITS 25 MCG TAB PO SCH (08:04)
[2021-01-28] MEDS: GABAPENTIN 400 MG CAP PO SCH ×3 (08:04→21:22)
[2021-01-28] MEDS: busPIRone 15 MG TAB PO SCH ×2 (08:04→21:22)
[2021-01-28] MEDS: FAMOTIDINE 20 MG TAB PO SCH ×2 (08:04→21:22)
[2021-01-28] MEDS: DOCUSATE SODIUM/SENNA 50/8.6MG TAB PO SCH ×2 (08:04→21:22)
[2021-01-28] MEDS: MULTIVITAMIN TAB PO SCH (08:05)
[2021-01-28] MEDS: buPROPion XL 300 MG TABCR PO SCH (08:06)
[2021-01-28] MEDS: DULoxetine HCL 60 MG CAP PO SCH (08:06)
[2021-01-28] MEDS: FERROUS SULFATE 325 MG TAB PO SCH (08:06)
[2021-01-28] MEDS: VITAMIN B COMPLEX TAB PO SCH (08:06)
[2021-01-28] MEDS: HYDROCODONE/ACETAMOPHEN 5/325MG TAB PO SCH ×2 (08:15→21:21)
[2021-01-28 08:29] LABS: Basophils # (auto) 0.04 K/uL (0-0.2); Basophils % (auto) 0.4 %; Eosinophils # (auto) 0.26 K/uL (0-0.5); Eosinophils % (auto) 2.7 %; Hematocrit (blood only) 31.3 % (37-47); Hemoglobin 10.1 g/dL (12.0-16.0); Immature Granulocytes # (auto) 0.02 K/uL (0.00-0.02); Immature Granulocytes % (auto) 0.2 %; Lymphocytes % (auto) 26.2 %; Mean Corpuscular Hemoglobin 30.2 pg (25-34); Mean Corpuscular Hgb Conc 32.3 g/dL (32-36); Mean Corpuscular Volume 93.7 fL (80-100); Mean Platelet Volume 9.6 fL (7.4-10.4); Monocytes # (auto) 0.72 K/uL (0.11-0.59); Monocytes % (auto) 7.5 %; Neutrophils # (auto) 6.02 K/uL (1.4-6.5); Platelet Count 375 K/uL (130-400); RDW Coefficient of Variation 15.9 % (11.5-14.5); Red Blood Count 3.34 M/uL (4.2-5.4); White Blood Count 9.56 K/uL (4.8-10.8)
[2021-01-28] MEDS: INSULIN ASPART 100 UNITS/ML 3 ML PEN SC SCH ×4 (09:18→21:18)
[2021-01-28] MEDS ORDERED: MICONAZOLE NITRATE POWDER 43 GM EXT PRN (11:02)
[2021-01-28] MEDS: traMADol HCL 50 MG TABLET PO PRN (14:42)
[2021-01-28] MEDS: DAPTOmycin 500 MG in SYRINGE 0 ML IV SCH (14:44)
[2021-01-28] MEDS: ERTAPENEM SODIUM 500 MG in SODIUM CHLORIDE 0.9% 50 ML IV SCH (17:22)
[2021-01-28] MEDS: MELATONIN 3 MG TAB PO SCH (20:12)
[2021-01-29] MEDS: HEPARIN SOD 5,000 UNIT/0.5 ML VIAL SQ SCH ×3 (05:50→20:57)
[2021-01-29] MEDS ORDERED: MAGNESIUM HYDROXIDE SUSP 30 ML UDC PO ONE (06:13)
[2021-01-29 06:50] LABS: Basophils # (auto) 0.04 K/uL (0-0.2); Basophils % (auto) 0.4 %; Eosinophils # (auto) 0.29 K/uL (0-0.5); Hematocrit (blood only) 32.9 % (37-47); Hemoglobin 10.3 g/dL (12.0-16.0); Immature Granulocytes # (auto) 0.02 K/uL (0.00-0.02); Immature Granulocytes % (auto) 0.2 %; Lymphocytes # (auto) 2.59 K/uL (1.2-3.4); Lymphocytes % (auto) 26.7 %; Mean Corpuscular Hgb Conc 31.3 g/dL (32-36); Mean Corpuscular Volume 95.9 fL (80-100); Mean Platelet Volume 9.3 fL (7.4-10.4); Monocytes # (auto) 0.54 K/uL (0.11-0.59); Monocytes % (auto) 5.6 %; Neutrophils # (auto) 6.21 K/uL (1.4-6.5); Neutrophils % (auto) 64.1 %; Platelet Count 364 K/uL (130-400); RDW Coefficient of Variation 15.7 % (11.5-14.5); RDW Standard Deviation 54.7 fL (36.4-46.3); Red Blood Count 3.43 M/uL (4.2-5.4); White Blood Count 9.69 K/uL (4.8-10.8)
[2021-01-29 07:16] LABS: BUN Creatinine Ratio 15.9 (10-20); Calcium 9.5 mg/dl (8.5-10.1); Creatinine Clr Calc Pharmacy 27.2 ml/min; Est GFR (African American) 21.5 ml/min; Est GFR (Non-African American) 18.6 ml/min; Potassium 4.1 mmol/L (3.5-5.1)
--- NOTE | 2021-01-29 07:16 | Hospitalist Progress Note ---
Date of Service January 29, 2021 Assessment & Plan (1) Catheter-associated urinary tract infection: Plan: Patient has chronic indwelling engel, cateter-associated UTI present on admittion. Patient blood an urine cultures collected 01/24 results gram positive cocci chains, 01/26 found enterococcus faecalis species, 01/27 found sensitivity to penicillin, patient has anaphylactic allergy to penicillin so it was removed from consideration. Found 3 organisms in high count in urine 01/26/21. - initially on Ertapenem 500mg Q24, added Daptomycin 500mg Q48, ertapenem discontinued 01/29/21 - 01/27/21 urine culture negative - 01/27/21 blood cultures negative pending (2) Acute kidney injury superimposed on CKD: Plan: Creatinine 2.78 upon admission, with range 1.78-2.10, NSS at 100 mils per hour. IV fluids stopped yesterday. Creat and BUN found to be uptrending, restarted IVF with LR 100mls/hr. Current creatinine 2.62 (<--2.42<--1.94),BUN 42 (<--36<--30), fluid input 1215 output 5175, WBC 9.69, urine in engel yellow clear, soledad unlikely due to infectious or postrenal etiology -continue to monitor bmp cbc i/o (3) Bacteremia due to Enterococcus: Plan: Blood culture 01/24 revealed enterococcus facialis sensitive to penicillin, patient allergy anaphylaxis to penicillin, Currently on ertapenem and daptomycin. Echo ordered,mild diastolic dysfunction study limited. -repeat blood culture ordered 01/27 pending -continue daptomycin (4) Confusion and disorientation: Plan: Underlying dementia, aggravated by urinary tract infection. Have available Haldol 5 mg IM every 8 hours as needed, and lorazepam 1 mg IV every 6 hours as needed -currently improved, patient conversing intelligently (5) Agitation: Plan: see above (6) Calculus of proximal right ureter: Plan: 2 calculi found in proximal right ureter up to 5mm with hydronephrosis. Patient had previous stents placed bilaterally due to previous history of chronic calculi. Stents were removed and replaced bilaterally by Urology 01/25/21 (7) Hydronephrosis, right: Plan: Hydronephrosis of right ureter secondary to calculi. Stents replaced by urology 01/25/21 (8) Dyslipidemia: Plan: Continue home medications (9) Depression with anxiety: Plan: Continue home medications -resumed 01/27/21 melatonin, duloxetine, duspirone, bupropion (10) Diabetes mellitus type 2 in obese: Plan: Currently on sliding scale Novolog, last A1C 7.3 01/25/21 -currenty glucose 115 (11) Occupational therapy encounter: Plan: Seen by OT. Patient is dependent for all self care and bedbound at baseline, does not qualify for OT and was discharged from OT 12) PT -seen by PT, PT not indicated at his time 13) Chronic Pain resumed home medications 01/27/21 hydrocodone/acetaminophen, baclofen, gabapentine, has tramadol PRN 14) Rash Noted on abd yesterday, Miconazole Nitrate cream ordered 15) Constipation Patient onSenna/Ducosate, given Miralax (12) Chronic pain: Plan: FENa: [] Code Status: DNR/DNI DVT PPX: Heparin PT/OT: seen by PT/OT, not indicated at this time Case Management: [return to [facility] when medically stable] Dispo: [carb consistent heart healthy diet] Jazmine Rivero Do PGY 1, FCM Admission and Anticipated Discharge Date Admission Date: January 24, 2021 Supervising Physician Co-Signing Physician Notes I saw the patient independently and performed a history and exam. I discussed the case with Dr. Rivero. I agree with the documented findings in the resident's note. Upon my exam, the patient is without complaint. Exam 97/64, 89, 16, 36.6, 94% on room air Alert, oriented. No distress. Heart regular rate and rhythm. Lungs clear. Abdomen obese but nontender Data Hemoglobin 10.3, platelet count 364 BUN 42, creatinine 2.62 (creatinine trending up from 1.94 on 01/27, and 2.41 on 01/28) Blood culture dated 01/24/2021 shows Enterococcus faecalis Blood cultures dated 01/27/2021 demonstrate no growth at 48 hours Urine culture collected 01/27/2021 demonstrates no growth Impression and Plan CAUTI Bacteremia with Enterococcus Clinically improving on daptomycin; note significant penicillin allergy (anaphylaxis). Continue current antibiotics pending final urine culture from 01/27 Right nephrolithiasis with hydronephrosis Appreciate urology consultation , s/p stent exchange on 01/24 Monitor urine output, has been acceptable SOLEDAD on CKD stage IV Baseline looks to be about 2.2, slightly up today to 2.62 BMP in a.m. Else per resident documentation Subjective 66yo Female here for AMS, right sided nephrolithiasis, and CAUTI, stent replaced 01/25/21, currently being treated on Ertapenem Daptomycin. Patient seen at bedside slept ate well complained of constipation. They stated their leg was in extreme pain due to positioning, nursing adjusted their leg and patient recovered. Per nursing patient has had an abdominal rash discovered yesterday e vening. Patient says it is itchy, she has had similar rashes at home that she treats with a cream. She states she wants to go home soon. Review of Systems Constitutional: no fever and no chills Eyes: no problem reported Ear, Nose, Mouth, Throat: no hearing loss, no dizziness, no change in voice and no pain with swallowing Respiratory: no cough and no dyspnea Cardiovascular: no chest pain, no palpitations and no edema Gastrointestinal: + constipation; no abdominal pain, no nausea, no vomiting and no diarrhea/loose stools Genitourinary: no dysuria Musculoskeletal: + joint pain Integumentary: + rash; no skin ulcer, no erythema, no skin swelling and no change in skin color Neurologic: no tingling, no numbness, no dizziness, no headache(s) and no confusion Physical Exam Constitutional: WD/WN, vitals as above Eyes: PERRL, conjunctivae normal, anicteric sclerae Respiratory: normal respiratory effort, lungs clear to auscultation no cough and no audible wheezes Cardiovascular: RRR, no murmur, no edema Rate/Rhythm: regular rate and regular rhythm Heart Sounds: normal S1 and normal S2; no gallop, no murmur and no cardiac rub Gastrointestinal (Abdomen): normal bowel sounds, soft, nontender, no hepatosplenomegaly Inspection/Auscultation: abdomen not distended Percussion/Palpation: abdomen nontender Musculoskeletal: no cyanosis or clubbing, extremities motor strength 5/5 Skin: + rash (about 5 in long, patchy red spots outside of skin folds. ) Skin folds noted normal color, antifulgal cream applied Results & Data Results & Data ([facility]) Vital Signs (Past 12 Hours) Vital Signs Temp Pulse Resp BP Pulse Ox 01/28/21 22:16 36.8 C 86 17 127/74 93 Laboratory Results 01/29/21 01/29/21 01/29/21 Range/Units 11:33 07:52 06:17 WBC 9.69 (4.8-10.8) K/uL RBC 3.43 L (4.2-5.4) M/uL Hgb 10.3 L (12.0-16.0) g/dL Hct 32.9 L (37-47) % MCV 95.9 (80-100) fL MCH 30.0 (25-34) pg MCHC 31.3 L (32-36) g/dL RDW Std Deviation 54.7 H (36.4-46.3) fL RDW Coeff of Katina 15.7 H (11.5-14.5) % Plt Count 364 (130-400) K/uL MPV 9.3 (7.4-10.4) fL Immature Gran % (Auto) 0.2 % Neut % (Auto) 64.1 % Lymph % (Auto) 26.7 % Trego % (Auto) 5.6 % Eos % (Auto) 3.0 % Baso % (Auto) 0.4 % Neut # (Auto) 6.21 (1.4-6.5) K/uL Lymph # (Auto) 2.59 (1.2-3.4) K/uL Trego # (Auto) 0.54 (0.11-0.59) K/uL Eos # (Auto) 0.29 (0-0.5) K/uL Baso # (Auto) 0.04 (0-0.2) K/uL Immature Gran # (Auto) 0.02 (0.00-0.02) K/uL Sodium (136-145) mmol/L Potassium (3.5-5.1) mmol/L Chloride (98-107) mmol/L Carbon Dioxide (21-32) mmol/L Anion Gap (3-11) BUN (7-18) mg/dl Creatinine (0.6-1.2) mg/dl Est Cr Clr Drug Dosing ml/min Est GFR ( Amer) ml/min Est GFR (Non-Af Amer) ml/min BUN/Creatinine Ratio (10-20) Glucose (70-99) mg/dl POC Glucose 123 H 115 H (70-99) mg/dl Calcium (8.5-10.1) mg/dl 01/29/21 01/28/21 01/28/21 Range/Units 06:17 20:36 17:05 WBC (4.8-10.8) K/uL RBC (4.2-5.4) M/uL Hgb (12.0-16.0) g/dL Hct (37-47) % MCV (80-100) fL MCH (25-34) pg MCHC (32-36) g/dL RDW Std Deviation (36.4-46.3) fL RDW Coeff of Katina (11.5-14.5) % Plt Count (130-400) K/uL MPV (7.4-10.4) fL Immature Gran % (Auto) % Neut % (Auto) % Lymph % (Auto) % Trego % (Auto) % Eos % (Auto) % Baso % (Auto) % Neut # (Auto) (1.4-6.5) K/uL Lymph # (Auto) (1.2-3.4) K/uL Trego # (Auto) (0.11-0.59) K/uL Eos # (Auto) (0-0.5) K/uL Baso # (Auto) (0-0.2) K/uL Immature Gran # (Auto) (0.00-0.02) K/uL Sodium 137 (136-145) mmol/L Potassium 4.1 (3.5-5.1) mmol/L Chloride 107 (98-107) mmol/L Carbon Dioxide 25 (21-32) mmol/L Anion Gap 5.0 (3-11) BUN 42 H (7-18) mg/dl Creatinine 2.62 H (0.6-1.2) mg/dl Est Cr Clr Drug Dosing 27.2 ml/min Est GFR ( Amer) 21.5 ml/min Est GFR (Non-Af Amer) 18.6 ml/min BUN/Creatinine Ratio 15.9 (10-20) Glucose 110 H (70-99) mg/dl POC Glucose 147 H 121 H (70-99) mg/dl Calcium 9.5 (8.5-10.1) mg/dl Medications Administered Current Inpatient Medications Acetaminophen (Acetaminophen 500 Mg Tab) 1,000 mg PO Q6H PRN PRN Reason: pain,fever Stop: 02/24/21 21:52 Last Admin: 01/26/21 08:01 Dose: 1,000 mg Documented by: Hydrocodone Bitart/Acetaminophen (Hydrocodone/Acetamophen 5/325mg Tab) 1 tab PO BID [facility] Stop: 02/10/21 10:59 Last Admin: 01/29/21 07:52 Dose: 1 tab Documented by: Baclofen (Baclofen 10 Mg Tab) 10 mg PO TID ELAN Stop: 02/26/21 13:59 Last Admin: 01/29/21 07:54 Dose: 10 mg Documented by: Bisacodyl (Bisacodyl 10 Mg Supp) 10 mg KS DAILY PRN PRN Reason: Constipation Stop: 02/26/21 10:29 Bupropion HCl (Bupropion Xl 300 Mg Tabcr) 300 mg PO QAM [facility] Stop: 02/26/21 10:59 Last Admin: 01/29/21 07:54 Dose: 300 mg Documented by: Buspirone HCl (Buspirone 15 Mg Tab) 15 mg PO BID [facility] Stop: 02/26/21 10:59 Last Admin: 01/29/21 07:57 Dose: 15 mg Documented by: Dextrose (Dextrose 50% 50 Ml Syringe) 25 - 50 ml IV UD PRN; Protocol PRN Reason: Hypoglycemia Protocol Stop: 02/23/21 12:15 Duloxetine HCl (Duloxetine Hcl 60 Mg Cap) 60 mg PO QAM [facility] Stop: 02/26/21 10:59 Last Admin: 01/29/21 07:53 Dose: 60 mg Documented by: Ertapenem (Ertapenem Consult Active) 1 ea N/A UD PRN PRN Reason: Consult Stop: 02/23/21 11:17 Famotidine (Famotidine 20 Mg Tab) 20 mg PO BID [facility] Stop: 02/26/21 10:59 Last Admin: 01/29/21 07:53 Dose: 20 mg Documented by: Ferrous Sulfate (Ferrous Sulfate 325 Mg Tab) 325 mg PO QAM [facility] Stop: 02/27/21 08:59 Last Admin: 01/29/21 07:56 Dose: 325 mg Documented by: Gabapentin (Gabapentin 400 Mg Cap) 800 mg PO TID [facility] Stop: 02/26/21 13:59 Last Admin: 01/29/21 07:55 Dose: 800 mg Documented by: Glucagon (Glucagon For Inj 1 Mg Vial) 1 mg SQ UD PRN; Protocol PRN Reason: Hypoglycemia Protocol Stop: 02/23/21 12:15 Glucose (Glucose 10 Tabs/Tube) 4 - 8 tabs PO UD PRN; Protocol PRN Reason: Hypoglycemia Protocol Stop: 02/23/21 12:15 Glucose (Glucose 40% Gel 15 Gm Tube) 15 - 30 gm PO UD PRN; Protocol PRN Reason: Hypoglycemia Protocol Stop: 02/23/21 12:15 Haloperidol Lactate (Haloperidol Lactate 5 Mg/Ml 1 Ml Vial) 5 mg IM Q8H PRN PRN Reason: Agitation Stop: 02/23/21 12:15 Heparin Sodium (Porcine) (Heparin Sod 5,000 Unit/0.5 Ml Vial) 7,500 units SQ Q8 ELAN Stop: 02/23/21 13:59 Last Admin: 01/29/21 05:50 Dose: 7,500 units Documented by: Lorazepam (Ativan) 1 mg in 2 mls @ 1 mls/min IV Q6H PRN PRN Reason: Anxiety/Agitation Stop: 02/23/21 12:15 Last Admin: 01/27/21 21:00 Dose: 1 mls/min Documented by: Ertapenem 500 mg/ Sodium (Chloride) 55 mls @ 110 mls/hr IV Q24H ELAN Stop: 01/29/21 16:59 Last Infusion: 01/28/21 18:21 Dose: Infused Documented by: Lactated Ringer's (Lr) 1,000 mls @ 100 mls/hr IV .Q10H ELAN Stop: 02/28/21 09:59 Last Admin: 01/29/21 10:56 Dose: 100 mls/hr Documented by: Daptomycin 500 mg/ Syringe 10 mls @ 5 mls/min IV Q48H ELAN; Protocol Stop: 02/09/21 14:59 Insulin Aspart (Insulin Aspart 100 Units/Ml 3 Ml Pen) 0 units SC ACHS ELAN Stop: 02/24/21 20:59 Last Admin: 01/29/21 12:45 Dose: 5 units Documented by: Melatonin (Melatonin 3 Mg Tab) 6 mg PO HS ELNA Stop: 02/26/21 20:59 Last Admin: 01/28/21 20:12 Dose: 6 mg Documented by: Miconazole Nitrate (Miconazole Nitrate Powder 43 Gm) 1 appln EXT PRN PRN PRN Reason: Affected Skin Folds Stop: 02/27/21 11:01 Miscellaneous (Carbohydrates For Hypoglycemia ) 15 - 30 gm PO UD PRN PRN Reason: Hypoglycemia Protocol Stop: 02/23/21 12:15 Miscellaneous Information (Daptomycin Consult Active) 1 ea N/A UD PRN PRN Reason: Consult Stop: 02/24/21 13:03 Multivitamins (Multivitamin Tab) 1 tab PO QAM [facility] Stop: 02/26/21 10:59 Last Admin: 01/29/21 07:55 Dose: 1 tab Documented by: Ondansetron HCl (Ondansetron Inj 2 Mg/Ml 2 Ml Vial) 4 mg IV Q6H PRN PRN Reason: Nausea Stop: 02/23/21 12:15 Polyethylene Glycol (Polyethylene (Miralax) 17 Gm Pack) 17 gm PO DAILY [facility] Stop: 02/28/21 09:54 Last Admin: 01/29/21 10:56 Dose: 17 gm Documented by: Senna/Docusate Sodium (Docusate Sodium/Senna 50/8.6mg Tab) 1 tab PO BID [facility] Stop: 02/26/21 10:59 Last Admin: 01/29/21 07:53 Dose: 1 tab Documented by: Simethicone (Simethicone 80 Mg Chew) 80 mg PO BID PRN PRN Reason: Dyspepsia Stop: 02/26/21 10:52 Tramadol HCl (Tramadol Hcl 50 Mg Tablet) 50 mg PO BID PRN PRN Reason: Pain level 5-10 Stop: 02/26/21 10:29 Last Admin: 01/29/21 08:28 Dose: 50 mg Documented by: Vitamin B Complex (Vitamin B Complex Tab) 1 tab PO QAM [facility] Stop: 02/26/21 10:59 Last Admin: 01/29/21 07:55 Dose: 1 tab Documented by: Vitamin D (Cholecalciferol 1,000 Units 25 Mcg Tab) 5,000 units PO QAM [facility] Stop: 02/26/21 10:59 Last Admin: 01/29/21 07:52 Dose: 5,000 units Documented by: Resident Activity Tracking Resident Involvement: Resident Care Provided Care Provided: Adult Hospital Medicine (1) Catheter-associated urinary tract infection Encounter type: initial encounter Indwelling urinary catheter type: indwelling urethral catheter Qualified Code(s): T83.511A - Infection and inflammatory reaction due to indwelling urethral catheter, initial encounter; N39.0 - Urinary tract infection, site not specified
[2021-01-29] MEDS: HYDROCODONE/ACETAMOPHEN 5/325MG TAB PO SCH ×2 (07:52→20:58)
[2021-01-29] MEDS: CHOLECALCIFEROL 1,000 UNITS 25 MCG TAB PO SCH (07:52)
[2021-01-29] MEDS: DULoxetine HCL 60 MG CAP PO SCH (07:53)
[2021-01-29] MEDS: FAMOTIDINE 20 MG TAB PO SCH ×2 (07:53→20:55)
[2021-01-29] MEDS: DOCUSATE SODIUM/SENNA 50/8.6MG TAB PO SCH ×2 (07:53→20:55)
[2021-01-29] MEDS: BACLOFEN 10 MG TAB PO SCH ×3 (07:54→20:52)
[2021-01-29] MEDS: buPROPion XL 300 MG TABCR PO SCH (07:54)
[2021-01-29] MEDS: MULTIVITAMIN TAB PO SCH (07:55)
[2021-01-29] MEDS: GABAPENTIN 400 MG CAP PO SCH ×3 (07:55→20:56)
[2021-01-29] MEDS: VITAMIN B COMPLEX TAB PO SCH (07:55)
[2021-01-29] MEDS: FERROUS SULFATE 325 MG TAB PO SCH (07:56)
[2021-01-29] MEDS: busPIRone 15 MG TAB PO SCH ×2 (07:57→20:55)
[2021-01-29] MEDS: traMADol HCL 50 MG TABLET PO PRN (08:28)
[2021-01-29] MEDS: INSULIN ASPART 100 UNITS/ML 3 ML PEN SC SCH ×4 (08:58→20:56)
[2021-01-29] MEDS: LACTATED RINGER'S 1,000 ML IV SCH ×2 (10:56→20:52)
[2021-01-29] MEDS: POLYETHYLENE (MIRALAX) 17 GM PACK PO SCH (10:56)
[2021-01-29] MEDS: MELATONIN 3 MG TAB PO SCH (20:57)
[2021-01-30] MEDS: LACTATED RINGER'S 1,000 ML IV SCH ×2 (05:50→16:04)
[2021-01-30] MEDS: HEPARIN SOD 5,000 UNIT/0.5 ML VIAL SQ SCH ×3 (05:51→20:43)
[2021-01-30 06:09] LABS: Basophils # (auto) 0.06 K/uL (0-0.2); Basophils % (auto) 0.6 %; Eosinophils # (auto) 0.27 K/uL (0-0.5); Eosinophils % (auto) 2.7 %; Hematocrit (blood only) 30.1 % (37-47); Hemoglobin 9.6 g/dL (12.0-16.0); Immature Granulocytes # (auto) 0.03 K/uL (0.00-0.02); Immature Granulocytes % (auto) 0.3 %; Lymphocytes # (auto) 2.93 K/uL (1.2-3.4); Lymphocytes % (auto) 29.2 %; Mean Corpuscular Hemoglobin 29.9 pg (25-34); Mean Corpuscular Hgb Conc 31.9 g/dL (32-36); Mean Corpuscular Volume 93.8 fL (80-100); Mean Platelet Volume 9.4 fL (7.4-10.4); Monocytes # (auto) 0.64 K/uL (0.11-0.59); Monocytes % (auto) 6.4 %; Neutrophils % (auto) 60.8 %; Platelet Count 339 K/uL (130-400); RDW Coefficient of Variation 15.8 % (11.5-14.5); RDW Standard Deviation 53.7 fL (36.4-46.3); Red Blood Count 3.21 M/uL (4.2-5.4); White Blood Count 10.03 K/uL (4.8-10.8)
[2021-01-30 06:42] LABS: BUN Creatinine Ratio 16.4 (10-20); Calcium 9.4 mg/dl (8.5-10.1); Creatinine Clr Calc Pharmacy 25.3 ml/min; Est GFR (African American) 19.7 ml/min; Potassium 4.1 mmol/L (3.5-5.1)
--- NOTE | 2021-01-30 07:13 | Hospitalist Progress Note ---
Date of Service January 30, 2021 Assessment & Plan (1) Catheter-associated urinary tract infection: Plan: Patient has chronic indwelling engel, cateter-associated UTI present on admittion. Patient blood an urine cultures collected 01/24 results gram positive cocci chains, 01/26 found enterococcus faecalis species, 01/27 found sensitivity to penicillin, patient has anaphylactic allergy to penicillin so it was removed from consideration. Found 3 organisms in high count in urine 01/26/21. Repeat uring blood cultures from 01/27/21 negative. - initially on Ertapenem 500mg Q24, added Daptomycin 500mg Q48, ertapenem discontinued 01/29/21 - will likely continue IV abx through discharge (2) Acute kidney injury superimposed on CKD: Plan: Creatinine 2.78 upon admission, with range 1.78-2.10, NSS at 100 mils per hour. IV fluids stopped 2 days ago. Creat and BUN found to be uptrending, restarted IVF with LR 100mls/hr yesterday. Current creatinine 2.82 (<--2.62<--2.42<--1.94),BUN 46 (<-- 42<--36<--30), fluid input 2750 output 6150, WBC 10.3, urine in engel yellow clear, soledad unlikely due to infectious or postrenal etiology -continue to monitor bmp cbc i/o, IVF may take 24hr to affect creat levels (3) Bacteremia due to Enterococcus: Plan: Blood culture 01/24 revealed enterococcus facialis sensitive to penicillin, patient allergy anaphylaxis to penicillin, placed on ertapenem and daptomycin. Echo ordered,mild diastolic dysfunction study limited. Repeat blood culture ordered 01/27 negative -continue daptomycin (4) Confusion and disorientation: Plan: Underlying dementia, aggravated by urinary tract infection. Have available Haldol 5 mg IM every 8 hours as needed, and lorazepam 1 mg IV every 6 hours as needed -currently improved, patient conversing intelligently (5) Agitation: Plan: see above (6) Calculus of proximal right ureter: Plan: 2 calculi found in proximal right ureter up to 5mm with hydronephrosis. Patient had previous stents placed bilaterally due to previous history of chronic calculi. Stents were removed and replaced bilaterally by Urology 01/25/21 (7) Hydronephrosis, right: Plan: Hydronephrosis of right ureter secondary to calculi. Stents replaced by urology 01/25/21 (8) Dyslipidemia: Plan: Continue home medications (9) Depression with anxiety: Plan: Continue home medications -resumed 01/27/21 melatonin, duloxetine, duspirone, bupropion (10) Diabetes mellitus type 2 in obese: Plan: Currently on sliding scale Novolog, last A1C 7.3 01/25/21 -currenty glucose 115 (11) Occupational therapy encounter: Plan: Seen by OT. Patient is dependent for all self care and bedbound at baseline, does not qualify for OT and was discharged from OT 12) PT -seen by PT, PT not indicated at his time 13) Chronic Pain resumed home medications 01/27/21 hydrocodone/acetaminophen, baclofen, gabapentine, has tramadol PRN 14) Rash Noted on abd yesterday, Miconazole Nitrate cream ordered and applied, rash slightly improved today 15) Constipation Patient on Senna/Ducosate, given Miralax yesterday. Today still no BM (12) Chronic pain: Plan: FENa: [] Code Status: DNR/DNI DVT PPX: Heparin PT/OT: seen by PT/OT, not indicated at this time Case Management: [return to [facility] when medically stable] Dispo: [carb consistent heart healthy diet] Jazmine Rivero Do PGY 1, [facility] Admission and Anticipated Discharge Date Admission Date: January 24, 2021 Supervising Physician Co-Signing Physician Notes I saw the patient and confirmed del rosario portions of the history and physical examination. I agree with the impression and plan in Dr. Rivero's note. Upon our exam, the patient is without complaints. She is lying supine in bed. She is hungry. Exam 107/74, 79, 16, 36.5, 95% on room air Alert, oriented. No distress. Heart regular rate and rhythm. Lungs clear. Abdomen obese but nontender Data Blood cell count 10.03, hemoglobin 9.6, platelet count 339 BUN 42, creatinine 2.62 (yesterday) BUN 46, creatinine 2.82 (today) Blood culture dated 01/24/2021 shows Enterococcus faecalis Blood cultures dated 01/27/2021 demonstrate no growth at 48 hours Urine culture collected 01/27/2021 demonstrates no growth Impression and Plan CAUTI Bacteremia with Enterococcus Clinically improving on daptomycin; note significant penicillin allergy (anaphylaxis). Continue current antibiotics pending final urine culture from 01/27 Right nephrolithiasis with hydronephrosis Appreciate urology consultation , s/p stent exchange on 01/24 Monitor urine output, has been acceptable SOLEDAD on CKD stage IV Baseline looks to be about 2.2, slightly up today to 2.62 Slight interval increase each of the last 3 days, including today IV fluids were restarted yesterday, so would expect to see some improvement beginning tomorrow. Else per resident documentation Disposition is return to [facility] once clinically stable (worsening kidney function is currently noted) Subjective 66yo Female here for AMS, right sided nephrolithiasis, and CAUTI, stent replaced 01/25/21, currently being treated on Daptomycin. Patient seen at bedside slept ate well, says they have not had BM for 2 days. She states rash on abd is improved but still itchy. Patient understands that she will be here through weekend due to abn kidney labs. Review of Systems Constitutional: no fever and no chills Eyes: no problem reported Ear, Nose, Mouth, Throat: no hearing loss, no dizziness, no change in voice and no pain with swallowing Respiratory: no cough and no dyspnea Cardiovascular: no chest pain, no palpitations and no edema Gastrointestinal: + constipation; no abdominal pain, no nausea, no vomiting and no diarrhea/loose stools Genitourinary: no dysuria Musculoskeletal: + joint pain Integumentary: + rash; no skin ulcer, no erythema, no skin swelling and no change in skin color Neurologic: no tingling, no numbness, no dizziness, no headache(s) and no confusion Physical Exam Constitutional: WD/WN, vitals as above Eyes: PERRL, conjunctivae normal, anicteric sclerae Respiratory: normal respiratory effort, lungs clear to auscultation no respiratory distress, no cough and no audible wheezes Cardiovascular: RRR, no murmur, no edema Rate/Rhythm: regular rate and regular rhythm Heart Sounds: normal S1 and normal S2; no gallop, no murmur and no cardiac rub Gastrointestinal (Abdomen): normal bowel sounds, soft, nontender, no hepatosplenomegaly Inspection/Auscultation: abdomen not distended Pe rcussion/Palpation: abdomen nontender Musculoskeletal: No swelling or edema in lower extremities, R knee pain on palpation Skin: + rash (about 5 in long, patchy red spots outside of skin folds. ) Skin folds noted normal color, antifulgal cream applied Results & Data Results & Data ([facility]) Vital Signs (Past 12 Hours) Vital Signs Temp Pulse Resp BP Pulse Ox 01/29/21 22:26 36.5 C 90 18 124/77 95 Laboratory Results 01/30/21 01/30/21 01/30/21 Range/Units 08:04 05:43 05:43 WBC 10.03 (4.8-10.8) K/uL RBC 3.21 L (4.2-5.4) M/uL Hgb 9.6 L (12.0-16.0) g/dL Hct 30.1 L (37-47) % MCV 93.8 (80-100) fL MCH 29.9 (25-34) pg MCHC 31.9 L (32-36) g/dL RDW Std Deviation 53.7 H (36.4-46.3) fL RDW Coeff of Katina 15.8 H (11.5-14.5) % Plt Count 339 (130-400) K/uL MPV 9.4 (7.4-10.4) fL Immature Gran % (Auto) 0.3 % Neut % (Auto) 60.8 % Lymph % (Auto) 29.2 % Dooly % (Auto) 6.4 % Eos % (Auto) 2.7 % Baso % (Auto) 0.6 % Neut # (Auto) 6.10 (1.4-6.5) K/uL Lymph # (Auto) 2.93 (1.2-3.4) K/uL Dooly # (Auto) 0.64 H (0.11-0.59) K/uL Eos # (Auto) 0.27 (0-0.5) K/uL Baso # (Auto) 0.06 (0-0.2) K/uL Immature Gran # (Auto) 0.03 H (0.00-0.02) K/uL Sodium 136 (136-145) mmol/L Potassium 4.1 (3.5-5.1) mmol/L Chloride 104 (98-107) mmol/L Carbon Dioxide 27 (21-32) mmol/L Anion Gap 5.0 (3-11) BUN 46 H (7-18) mg/dl Creatinine 2.82 H (0.6-1.2) mg/dl Est Cr Clr Drug Dosing 25.3 ml/min Est GFR ( Amer) 19.7 ml/min Est GFR (Non-Af Amer) 17.0 ml/min BUN/Creatinine Ratio 16.4 (10-20) Glucose 108 H (70-99) mg/dl POC Glucose 127 H (70-99) mg/dl Calcium 9.4 (8.5-10.1) mg/dl 01/29/21 01/29/21 01/29/21 Range/Units 20:38 16:31 16:30 WBC (4.8-10.8) K/uL RBC (4.2-5.4) M/uL Hgb (12.0-16.0) g/dL Hct (37-47) % MCV (80-100) fL MCH (25-34) pg MCHC (32-36) g/dL RDW Std Deviation (36.4-46.3) fL RDW Coeff of Katina (11.5-14.5) % Plt Count (130-400) K/uL MPV (7.4-10.4) fL Immature Gran % (Auto) % Neut % (Auto) % Lymph % (Auto) % Dooly % (Auto) % Eos % (Auto) % Baso % (Auto) % Neut # (Auto) (1.4-6.5) K/uL Lymph # (Auto) (1.2-3.4) K/uL Dooly # (Auto) (0.11-0.59) K/uL Eos # (Auto) (0-0.5) K/uL Baso # (Auto) (0-0.2) K/uL Immature Gran # (Auto) (0.00-0.02) K/uL Sodium (136-145) mmol/L Potassium (3.5-5.1) mmol/L Chloride (98-107) mmol/L Carbon Dioxide (21-32) mmol/L Anion Gap (3-11) BUN (7-18) mg/dl Creatinine (0.6-1.2) mg/dl Est Cr Clr Drug Dosing ml/min Est GFR ( Amer) ml/min Est GFR (Non-Af Amer) ml/min BUN/Creatinine Ratio (10-20) Glucose (70-99) mg/dl POC Glucose 119 H 106 H > 600 H* (70-99) mg/dl Calcium (8.5-10.1) mg/dl 01/29/21 01/29/21 Range/Units 16:27 11:33 WBC (4.8-10.8) K/uL RBC (4.2-5.4) M/uL Hgb (12.0-16.0) g/dL Hct (37-47) % MCV (80-100) fL MCH (25-34) pg MCHC (32-36) g/dL RDW Std Deviation (36.4-46.3) fL RDW Coeff of Katina (11.5-14.5) % Plt Count (130-400) K/uL MPV (7.4-10.4) fL Immature Gran % (Auto) % Neut % (Auto) % Lymph % (Auto) % Dooly % (Auto) % Eos % (Auto) % Baso % (Auto) % Neut # (Auto) (1.4-6.5) K/uL Lymph # (Auto) (1.2-3.4) K/uL Dooly # (Auto) (0.11-0.59) K/uL Eos # (Auto) (0-0.5) K/uL Baso # (Auto) (0-0.2) K/uL Immature Gran # (Auto) (0.00-0.02) K/uL Sodium (136-145) mmol/L Potassium (3.5-5.1) mmol/L Chloride (98-107) mmol/L Carbon Dioxide (21-32) mmol/L Anion Gap (3-11) BUN (7-18) mg/dl Creatinine (0.6-1.2) mg/dl Est Cr Clr Drug Dosing ml/min Est GFR ( Amer) ml/min Est GFR (Non-Af Amer) ml/min BUN/Creatinine Ratio (10-20) Glucose (70-99) mg/dl POC Glucose > 600 H* 123 H (70-99) mg/dl Calcium (8.5-10.1) mg/dl Medications Administered Current Inpatient Medications Acetaminophen (Acetaminophen 500 Mg Tab) 1,000 mg PO Q6H PRN PRN Reason: pain,fever Stop: 02/24/21 21:52 Last Admin: 01/26/21 08:01 Dose: 1,000 mg Documented by: Hydrocodone Bitart/Acetaminophen (Hydrocodone/Acetamophen 5/325mg Tab) 1 tab PO BID [facility] Stop: 02/10/21 10:59 Last Admin: 01/30/21 09:13 Dose: 1 tab Documented by: Baclofen (Baclofen 10 Mg Tab) 10 mg PO TID ELAN Stop: 02/26/21 13:59 Last Admin: 01/30/21 08:58 Dose: 10 mg Documented by: Bisacodyl (Bisacodyl 10 Mg Supp) 10 mg AR DAILY PRN PRN Reason: Constipation Stop: 02/26/21 10:29 Bupropion HCl (Bupropion Xl 300 Mg Tabcr) 300 mg PO QAM [facility] Stop: 02/26/21 10:59 Last Admin: 01/30/21 08:58 Dose: 300 mg Documented by: Buspirone HCl (Buspirone 15 Mg Tab) 15 mg PO BID [facility] Stop: 02/26/21 10:59 Last Admin: 01/30/21 08:58 Dose: 15 mg Documented by: Dextrose (Dextrose 50% 50 Ml Syringe) 25 - 50 ml IV UD PRN; Protocol PRN Reason: Hypoglycemia Protocol Stop: 02/23/21 12:15 Duloxetine HCl (Duloxetine Hcl 60 Mg Cap) 60 mg PO QAM [facility] Stop: 02/26/21 10:59 Last Admin: 01/30/21 08:59 Dose: 60 mg Documented by: Ertapenem (Ertapenem Consult Active) 1 ea N/A UD PRN PRN Reason: Consult Stop: 02/23/21 11:17 Famotidine (Famotidine 20 Mg Tab) 20 mg PO BID ELAN Stop: 02/26/21 10:59 Last Admin: 01/30/21 08:59 Dose: 20 mg Documented by: Ferrous Sulfate (Ferrous Sulfate 325 Mg Tab) 325 mg PO QAM [facility] Stop: 02/27/21 08:59 Last Admin: 01/30/21 08:59 Dose: 325 mg Documented by: Gabapentin (Gabapentin 400 Mg Cap) 800 mg PO TID [facility] Stop: 02/26/21 13:59 Last Admin: 01/30/21 08:58 Dose: 800 mg Documented by: Glucagon (Glucagon For Inj 1 Mg Vial) 1 mg SQ UD PRN; Protocol PRN Reason: Hypoglycemia Protocol Stop: 02/23/21 12:15 Glucose (Glucose 10 Tabs/Tube) 4 - 8 tabs PO UD PRN; Protocol PRN Reason: Hypoglycemia Protocol Stop: 02/23/21 12:15 Glucose (Glucose 40% Gel 15 Gm Tube) 15 - 30 gm PO UD PRN; Protocol PRN Reason: Hypoglycemia Protocol Stop: 02/23/21 12:15 Haloperidol Lactate (Haloperidol Lactate 5 Mg/Ml 1 Ml Vial) 5 mg IM Q8H PRN PRN Reason: Agitation Stop: 02/23/21 12:15 Heparin Sodium (Porcine) (Heparin Sod 5,000 Unit/0.5 Ml Vial) 7,500 units SQ Q8 ELAN Stop: 02/23/21 13:59 Last Admin: 01/30/21 05:51 Dose: 7,500 units Documented by: Lorazepam (Ativan) 1 mg in 2 mls @ 1 mls/min IV Q6H PRN PRN Reason: Anxiety/Agitation Stop: 02/23/21 12:15 Last Admin: 01/27/21 21:00 Dose: 1 mls/min Documented by: Lactated Ringer's (Lr) 1,000 mls @ 100 mls/hr IV .Q10H ELAN Stop: 02/28/21 09:59 Last Admin: 01/30/21 05:50 Dose: 100 mls/hr Documented by: Daptomycin 500 mg/ Syringe 10 mls @ 5 mls/min IV Q48H ELAN; Protocol Stop: 02/09/21 14:59 Insulin Aspart (Insulin Aspart 100 Units/Ml 3 Ml Pen) 0 units SC ACHS ELAN Stop: 02/24/21 20:59 Last Admin: 01/30/21 09:04 Dose: 8 units Documented by: Melatonin (Melatonin 3 Mg Tab) 6 mg PO HS ELAN Stop: 02/26/21 20:59 Last Admin: 01/29/21 20:57 Dose: 6 mg Documented by: Miconazole Nitrate (Miconazole Nitrate Powder 43 Gm) 1 appln EXT PRN PRN PRN Reason: Affected Skin Folds Stop: 02/27/21 11:01 Miscellaneous (Carbohydrates For Hypoglycemia ) 15 - 30 gm PO UD PRN PRN Reason: Hypoglycemia Protocol Stop: 02/23/21 12:15 Miscellaneous Information (Daptomycin Consult Active) 1 ea N/A UD PRN PRN Reason: Consult Stop: 02/24/21 13:03 Multivitamins (Multivitamin Tab) 1 tab PO QAM [facility] Stop: 02/26/21 10:59 Last Admin: 01/30/21 09:00 Dose: 1 tab Documented by: Ondansetron HCl (Ondansetron Inj 2 Mg/Ml 2 Ml Vial) 4 mg IV Q6H PRN PRN Reason: Nausea Stop: 02/23/21 12:15 Polyethylene Glycol (Polyethylene (Miralax) 17 Gm Pack) 17 gm PO DAILY [facility] Stop: 02/28/21 09:54 Last Admin: 01/30/21 09:00 Dose: 17 gm Documented by: Senna/Docusate Sodium (Docusate Sodium/Senna 50/8.6mg Tab) 1 tab PO BID [facility] Stop: 02/26/21 10:59 Last Admin: 01/30/21 08:59 Dose: 1 tab Documented by: Simethicone (Simethicone 80 Mg Chew) 80 mg PO BID PRN PRN Reason: Dyspepsia Stop: 02/26/21 10:52 Tramadol HCl (Tramadol Hcl 50 Mg Tablet) 50 mg PO BID PRN PRN Reason: Pain level 5-10 Stop: 02/26/21 10:29 Last Admin: 01/29/21 08:28 Dose: 50 mg Documented by: Vitamin B Complex (Vitamin B Complex Tab) [facility] [place]: 02/26/21 10:59 Last Admin: 01/30/21 09:00 Dose: 1 tab Documented by: Vitamin D (Cholecalciferol 1,000 Units 25 Mcg Tab) 5,000 units PO QAM [facility] Stop: 02/26/21 10:59 Last Admin: 01/30/21 08:58 Dose: 5,000 units Documented by: Resident Activity Tracking Resident Involvement: Resident Care Provided Care Provided: Adult Hospital Medicine (1) Catheter-associated urinary tract infection Encounter type: initial encounter Indwelling urinary catheter type: indwelling urethral catheter Qualified Code(s): T83.511A - Infection and inflammatory reaction due to indwelling urethral catheter, initial encounter; N39.0 - Urinary tract infection, site not specified
[2021-01-30] MEDS: BACLOFEN 10 MG TAB PO SCH ×3 (08:58→20:42)
[2021-01-30] MEDS: GABAPENTIN 400 MG CAP PO SCH ×3 (08:58→20:41)
[2021-01-30] MEDS: CHOLECALCIFEROL 1,000 UNITS 25 MCG TAB PO SCH (08:58)
[2021-01-30] MEDS: busPIRone 15 MG TAB PO SCH ×2 (08:58→20:42)
[2021-01-30] MEDS: buPROPion XL 300 MG TABCR PO SCH (08:58)
[2021-01-30] MEDS: FAMOTIDINE 20 MG TAB PO SCH ×2 (08:59→20:42)
[2021-01-30] MEDS: DULoxetine HCL 60 MG CAP PO SCH (08:59)
[2021-01-30] MEDS: FERROUS SULFATE 325 MG TAB PO SCH (08:59)
[2021-01-30] MEDS: DOCUSATE SODIUM/SENNA 50/8.6MG TAB PO SCH ×2 (08:59→20:42)
[2021-01-30] MEDS: POLYETHYLENE (MIRALAX) 17 GM PACK PO SCH ×2 (09:00→20:41)
[2021-01-30] MEDS: MULTIVITAMIN TAB PO SCH (09:00)
[2021-01-30] MEDS: VITAMIN B COMPLEX TAB PO SCH (09:00)
[2021-01-30] MEDS: INSULIN ASPART 100 UNITS/ML 3 ML PEN SC SCH ×4 (09:04→20:47)
[2021-01-30] MEDS: HYDROCODONE/ACETAMOPHEN 5/325MG TAB PO SCH ×2 (09:13→20:41)
[2021-01-30] MEDS ORDERED: POLYETHYLENE (MIRALAX) 17 GM PACK PO SCH (11:30)
[2021-01-30] MEDS: traMADol HCL 50 MG TABLET PO PRN (11:46)
[2021-01-30] MEDS: DAPTOmycin 500 MG in SYRINGE 0 ML IV SCH (14:43)
[2021-01-30] MEDS: LORazepam 1 MG/2 ML VIAL IV PRN (16:19)
[2021-01-30] MEDS: MELATONIN 3 MG TAB PO SCH (20:43)
[2021-01-31] MEDS: LACTATED RINGER'S 1,000 ML IV SCH ×3 (01:50→21:44)
[2021-01-31] MEDS: HEPARIN SOD 5,000 UNIT/0.5 ML VIAL SQ SCH ×3 (05:47→21:29)
[2021-01-31 06:00] LABS: Basophils # (auto) 0.05 K/uL (0-0.2); Basophils % (auto) 0.6 %; Eosinophils # (auto) 0.26 K/uL (0-0.5); Eosinophils % (auto) 3.3 %; Hematocrit (blood only) 29.6 % (37-47); Hemoglobin 9.3 g/dL (12.0-16.0); Immature Granulocytes # (auto) 0.02 K/uL (0.00-0.02); Immature Granulocytes % (auto) 0.3 %; Lymphocytes # (auto) 2.74 K/uL (1.2-3.4); Lymphocytes % (auto) 34.8 %; Mean Corpuscular Hgb Conc 31.4 g/dL (32-36); Mean Corpuscular Volume 95.5 fL (80-100); Mean Platelet Volume 9.4 fL (7.4-10.4); Monocytes # (auto) 0.45 K/uL (0.11-0.59); Monocytes % (auto) 5.7 %; Neutrophils # (auto) 4.36 K/uL (1.4-6.5); Neutrophils % (auto) 55.3 %; Platelet Count 321 K/uL (130-400); RDW Coefficient of Variation 15.9 % (11.5-14.5); RDW Standard Deviation 54.8 fL (36.4-46.3); White Blood Count 7.88 K/uL (4.8-10.8)
[2021-01-31 06:51] LABS: BUN Creatinine Ratio 18.3 (10-20); Calcium 9.5 mg/dl (8.5-10.1); Creatinine Clr Calc Pharmacy 30.8 ml/min; Est GFR (African American) 24.9 ml/min; Est GFR (Non-African American) 21.5 ml/min; Potassium 4.4 mmol/L (3.5-5.1)
[2021-01-31] MEDS: POLYETHYLENE (MIRALAX) 17 GM PACK PO SCH ×2 (09:35→21:30)
[2021-01-31] MEDS: BACLOFEN 10 MG TAB PO SCH ×3 (09:36→21:30)
[2021-01-31] MEDS: HYDROCODONE/ACETAMOPHEN 5/325MG TAB PO SCH ×2 (09:36→21:29)
[2021-01-31] MEDS: busPIRone 15 MG TAB PO SCH ×2 (09:37→21:30)
[2021-01-31] MEDS: buPROPion XL 300 MG TABCR PO SCH (09:37)
[2021-01-31] MEDS: MULTIVITAMIN TAB PO SCH (09:37)
[2021-01-31] MEDS: FAMOTIDINE 20 MG TAB PO SCH ×2 (09:38→21:30)
[2021-01-31] MEDS: FERROUS SULFATE 325 MG TAB PO SCH (09:38)
[2021-01-31] MEDS: CHOLECALCIFEROL 1,000 UNITS 25 MCG TAB PO SCH (09:38)
[2021-01-31] MEDS: DOCUSATE SODIUM/SENNA 50/8.6MG TAB PO SCH ×2 (09:38→21:30)
[2021-01-31] MEDS: DULoxetine HCL 60 MG CAP PO SCH (09:38)
[2021-01-31] MEDS: VITAMIN B COMPLEX TAB PO SCH (09:39)
[2021-01-31] MEDS: GABAPENTIN 400 MG CAP PO SCH ×3 (09:39→21:29)
[2021-01-31] MEDS: INSULIN ASPART 100 UNITS/ML 3 ML PEN SC SCH ×4 (09:41→21:30)
--- NOTE | 2021-01-31 09:47 | Hospitalist Progress Note ---
Date of Service January 31, 2021 Assessment & Plan (1) Catheter-associated urinary tract infection: Plan: Patient has chronic indwelling engel, cateter-associated UTI present on admittion. Patient blood an urine cultures collected 01/24 results gram positive cocci chains, 01/26 found enterococcus faecalis species, 01/27 found sensitivity to penicillin, patient has anaphylactic allergy to penicillin so it was removed from consideration. Found 3 organisms in high count in urine 01/26/21. Repeat uring blood cultures from 01/27/21 negative. - initially on Ertapenem 500mg Q24, added Daptomycin 500mg Q48, ertapenem discontinued 01/29/21 - will likely continue IV abx through discharge (2) Acute kidney injury superimposed on CKD: Plan: Creatinine 2.78 upon admission, with range 1.78-2.10, NSS at 100 mils per hour. IV fluids stopped 2 days ago. Creat and BUN found to be uptrending, restarted IVF with LR 100mls/hr yesterday. -Current creatinine 2.32 (<--2.82 <--2.62<--2.42<--1.94),BUN 42(<--46<-- 4 2<--36<--30), improving -fluid input 2456 output 3525, -WBC 7.88, urine in engel yellow clear, soledad unlikely due to infectious or postrenal etiology -continue to monitor bmp cbc i/o, reduced LR to 75ml/hr (3) Bacteremia due to Enterococcus: Plan: Blood culture 01/24 revealed enterococcus facialis sensitive to penicillin, patient allergy anaphylaxis to penicillin, placed on ertapenem and daptomycin. Echo ordered,mild diastolic dysfunction study limited. Repeat blood culture ordered 01/27 negative -continue daptomycin (4) Confusion and disorientation: Plan: Underlying dementia, aggravated by urinary tract infection. Have available Haldol 5 mg IM every 8 hours as needed, and lorazepam 1 mg IV every 6 hours as needed -resolved (5) Agitation: Plan: see above (6) Calculus of proximal right ureter: Plan: 2 calculi found in proximal right ureter up to 5mm with hydronephrosis. Patient had previous stents placed bilaterally due to previous history of chronic calculi. Stents were removed and replaced bilaterally by Urology 01/25/21 (7) Hydronephrosis, right: Plan: Hydronephrosis of right ureter secondary to calculi. Stents replaced by urology 01/25/21 (8) Dyslipidemia: Plan: Continue home medications (9) Depression with anxiety: Plan: Continue home medications -resumed 01/27/21 melatonin, duloxetine, duspirone, bupropion (10) Diabetes mellitus type 2 in obese: Plan: Currently on sliding scale Novolog, last A1C 7.3 01/25/21 -currenty glucose 115 (11) Occupational therapy encounter: Plan: Seen by OT. Patient is dependent for all self care and bedbound at baseline, does not qualify for OT and was discharged from OT 12) PT -seen by PT, PT not indicated at his time 13) Chronic Pain resumed home medications 01/27/21 hydrocodone/acetaminophen, baclofen, gabapentine, has tramadol PRN. Ordered Bengay PRN 14) Rash Noted on abd yesterday, Miconazole Nitrate cream ordered and applied, rash improved today 15) Constipation Patient on Senna/Ducosate, given Miralax 2 days ago adjusted to BID yesterday. Today still no BM (12) Chronic pain: Plan: FENa: [] Code Status: DNR/DNI DVT PPX: Heparin PT/OT: seen by PT/OT, not indicated at this time Case Management: [return to [facility] when medically stable] Dispo: [carb consistent heart healthy diet] Jazmine Rivero Do PGY 1, FCM Admission and Anticipated Discharge Date Admission Date: January 24, 2021 Supervising Physician Co-Signing Physician Notes I saw the patient and confirmed del rosario portions of the history and physical examination. I agree with the impression and plan in Dr. Rivero's note. Upon our exam, the patient is without complaints. She is lying supine in bed. She is slightly tearful today as she was recounting her family history -the of her mother, father and brother all within a 7 or 8-year period. Exam 128/82, 73, 18, 36.6, 94% on room air Alert, oriented. No distress. Heart regular rate and rhythm. Lungs clear. Abdomen obese but nontender Data Hemoglobin 9.3 BUN 42, creatinine 2.32 Blood culture dated 01/24/2021 shows Enterococcus faecalis Blood cultures dated 01/27/2021 demonstrate no growth at 48 hours Urine culture collected 01/27/2021 demonstrates no growth Impression and Plan CAUTI Bacteremia with Enterococcus Clinically improving on daptomycin; note significant penicillin allergy (anaphylaxis). Continue current antibiotics pending final urine culture from 01/27 Right nephrolithiasis with hydronephrosis Appreciate urology consultation , s/p stent exchange on 01/24 Monitor urine output, has been acceptable SOLEDAD on CKD stage IV Improving renal function with hydration Baseline looks to be about 2.2 Will back down fluids to 80 mL's per hour today and recheck BMP in AM. Else per resident documentation Disposition is return to [facility] once clinically stable (this may be tomorrow if renal function continues to improve) Subjective 66yo Female here for AMS, right sided nephrolithiasis, and CAUTI, stent replaced 01/25/21, currently being treated on Daptomycin. Patient seen at bedside slept ate well, says they have not had BM for 3 days. She states rash on abd is improved. Patient understands her kidney labs are improving and hopes to go home soon. Per nurse she had some difficulty sleeping, given 1 dose ativan fell asleep. Review of Systems Constitutional: no fever and no chills Eyes: no problem reported Ear, Nose, Mouth, Throat: no hearing loss, no dizziness, no change in voice and no pain with swallowing Respiratory: no cough and no dyspnea Cardiovascular: no chest pain, no palpitations and no edema Gastrointestinal: + constipation; no abdominal pain, no nausea, no vomiting and no diarrhea/loose stools Genitourinary: no dysuria Musculoskeletal: + joint pain Integumentary: + rash; no skin ulcer, no erythema, no skin swelling and no change in skin color Neurologic: no tingling, no numbness, no dizziness, no headache(s) and no confusion Physical Exam Constitutional: WD/WN, vitals as above + morbidly obese, cooperative and comfortable Eyes: PERRL, conjunctivae normal, anicteric sclerae Respiratory: normal respiratory effort, lungs clear to auscultation no respiratory distress, no cough and no audible wheezes Cardiovascular: RRR, no murmur, no edema Rate/Rhythm: regular rate and regular rhythm Heart Sounds: normal S1 and normal S2; no gallop, no murmur and no cardiac rub Gastrointestinal (Abdomen): normal bowel sounds, soft, nontender, no hepatosplenomegaly Inspection/Auscultation: abdomen not distended Percussion/Palpation: abdomen nontender Musculoskeletal: no cyanosis or clubbing, extremities motor strength 5/5 Extremities: + limited ROM of extremities (Chronic pain in right knee) Skin: normal turgor and + rash (about 5 in long on abdomen, fading) Neurologic: PERRL, EOMI, accommodation nl, no face palsy, no dysarthria Results & Data Results & Data ([facility]) Vital Signs (Past 12 Hours) Vital Signs Temp Pulse Resp BP BP Pulse Ox 01/31/21 08:15 73 18 128/82 94 01/31/21 00:08 36.6 C 82 22 137/71 96 Laboratory Results 01/31/21 01/31/21 01/31/21 Range/Units 12:06 08:12 05:39 WBC 7.88 (4.8-10.8) K/uL RBC 3.10 L (4.2-5.4) M/uL Hgb 9.3 L (12.0-16.0) g/dL Hct 29.6 L (37-47) % MCV 95.5 (80-100) fL MCH 30.0 (25-34) pg MCHC 31.4 L (32-36) g/dL RDW Std Deviation 54.8 H (36.4-46.3) fL RDW Coeff of Katina 15.9 H (11.5-14.5) % Plt Count 321 (130-400) K/uL MPV 9.4 (7.4-10.4) fL Immature Gran % (Auto) 0.3 % Neut % (Auto) 55.3 % Lymph % (Auto) 34.8 % [place] % (Auto) 5.7 % Eos % (Auto) 3.3 % Baso % (Auto) 0.6 % Neut # (Auto) 4.36 (1.4-6.5) K/uL Lymph # (Auto) 2.74 (1.2-3.4) K/uL [place] # (Auto) 0.45 (0.11-0.59) K/uL Eos # (Auto) 0.26 (0-0.5) K/uL Baso # (Auto) 0.05 (0-0.2) K/uL Immature Gran # (Auto) 0.02 (0.00-0.02) K/uL Sodium (136-145) mmol/L Potassium (3.5-5.1) mmol/L Chloride (98-107) mmol/L Carbon Dioxide (21-32) mmol/L Anion Gap (3-11) BUN (7-18) mg/dl Creatinine (0.6-1.2) mg/dl Est Cr Clr Drug Dosing ml/min Est GFR ( Amer) ml/min Est GFR (Non-Af Amer) ml/min BUN/Creatinine Ratio (10-20) Glucose (70-99) mg/dl POC Glucose 76 123 H (70-99) mg/dl Calcium (8.5-10.1) mg/dl 01/31/21 01/30/21 01/30/21 Range/Units 05:39 20:45 16:58 WBC (4.8-10.8) K/uL RBC (4.2-5.4) M/uL Hgb (12.0-16.0) g/dL Hct (37-47) % MCV (80-100) fL MCH (25-34) pg MCHC (32-36) g/dL RDW Std Deviation (36.4-46.3) fL RDW Coeff of Katina (11.5-14.5) % Plt Count (130-400) K/uL MPV (7.4-10.4) fL Immature Gran % (Auto) % Neut % (Auto) % Lymph % (Auto) % [place] % (Auto) % Eos % (Auto) % Baso % (Auto) % Neut # (Auto) (1.4-6.5) K/uL Lymph # (Auto) (1.2-3.4) K/uL [place] # (Auto) (0.11-0.59) K/uL Eos # (Auto) (0-0.5) K/uL Baso # (Auto) (0-0.2) K/uL Immature Gran # (Auto) (0.00-0.02) K/uL Sodium 140 (136-145) mmol/L Potassium 4.4 (3.5-5.1) mmol/L Chloride 109 H (98-107) mmol/L Carbon Dioxide 28 (21-32) mmol/L Anion Gap 3.0 (3-11) BUN 42 H (7-18) mg/dl Creatinine 2.32 H D (0.6-1.2) mg/dl Est Cr Clr Drug Dosing 30.8 ml/min Est GFR ( Amer) 24.9 ml/min Est GFR (Non-Af Amer) 21.5 ml/min BUN/Creatinine Ratio 18.3 (10-20) Glucose 97 (70-99) mg/dl POC Glucose 103 H 98 (70-99) mg/dl Calcium 9.5 (8.5-10.1) mg/dl Medications Administered Current Inpatient Medications Acetaminophen (Acetaminophen 500 Mg Tab) 1,000 mg PO Q6H PRN PRN Reason: pain,fever Stop: 02/24/21 21:52 Last Admin: 01/26/21 08:01 Dose: 1,000 mg Documented by: Hydrocodone Bitart/Acetaminophen (Hydrocodone/Acetamophen 5/325mg Tab) 1 tab PO BID [facility] Stop: 02/10/21 10:59 Last Admin: 01/31/21 09:36 Dose: 1 tab Documented by: Baclofen (Baclofen 10 Mg Tab) 10 mg PO TID [facility] Stop: 02/26/21 13:59 Last Admin: 01/31/21 13:20 Dose: 10 mg Documented by: Bisacodyl (Bisacodyl 10 Mg Supp) 10 mg PA DAILY PRN PRN Reason: Constipation Stop: 02/26/21 10:29 Bupropion HCl (Bupropion Xl 300 Mg Tabcr) 300 mg PO QAM [facility] Stop: 02/26/21 10:59 Last Admin: 01/31/21 09:37 Dose: 300 mg Documented by: Buspirone HCl (Buspirone 15 Mg Tab) 15 mg PO BID [facility] Stop: 02/26/21 10:59 Last Admin: 01/31/21 09:37 Dose: 15 mg Documented by: Dextrose (Dextrose 50% 50 Ml Syringe) 25 - 50 ml IV UD PRN; Protocol PRN Reason: Hypoglycemia Protocol Stop: 02/23/21 12:15 Duloxetine HCl (Duloxetine Hcl 60 Mg Cap) 60 mg PO QAM [facility] Stop: 02/26/21 10:59 Last Admin: 01/31/21 09:38 Dose: 60 mg Documented by: Famotidine (Famotidine 20 Mg Tab) 20 mg PO BID [facility] Stop: 02/26/21 10:59 Last Admin: 01/31/21 09:38 Dose: 20 mg Documented by: Ferrous Sulfate (Ferrous Sulfate 325 Mg Tab) 325 mg PO QAM [facility] Stop: 02/27/21 08:59 Last Admin: 01/31/21 09:38 Dose: 325 mg Documented by: Gabapentin (Gabapentin 400 Mg Cap) 800 mg PO TID [facility] Stop: 02/26/21 13:59 Last Admin: 01/31/21 13:20 Dose: 800 mg Documented by: Glucagon (Glucagon For Inj 1 Mg Vial) 1 mg SQ UD PRN; Protocol PRN Reason: Hypoglycemia Protocol Stop: 02/23/21 12:15 Glucose (Glucose 10 Tabs/Tube) 4 - 8 tabs PO UD PRN; Protocol PRN Reason: Hypoglycemia Protocol Stop: 02/23/21 12:15 Glucose (Glucose 40% Gel 15 Gm Tube) 15 - 30 gm PO UD PRN; Protocol PRN Reason: Hypoglycemia Protocol Stop: 02/23/21 12:15 Haloperidol Lactate (Haloperidol Lactate 5 Mg/Ml 1 Ml Vial) 5 mg IM Q8H PRN PRN Reason: Agitation Stop: 02/23/21 12:15 Heparin Sodium (Porcine) (Heparin Sod 5,000 Unit/0.5 Ml Vial) 7,500 units SQ Q8 [facility] Stop: 02/23/21 13:59 Last Admin: 01/31/21 13:17 Dose: 7,500 units Documented by: Lorazepam (Ativan) 1 mg in 2 mls @ 1 mls/min IV Q6H PRN PRN Reason: Anxiety/Agitation Stop: 02/23/21 12:15 Last Admin: 01/30/21 16:19 Dose: 1 mls/min Documented by: Lactated Ringer's (Lr) 1,000 mls @ 75 mls/hr IV .[id number] [facility] Stop: 02/28/21 09:59 Last Admin: 01/31/21 11:52 Dose: 100 mls/hr Documented by: Daptomycin 500 mg/ Syringe 10 mls @ 5 mls/min IV Q48H [facility]; Protocol Stop: 02/09/21 14:59 Last Admin: 01/30/21 14:43 Dose: 5 mls/min Documented by: Insulin Aspart (Insulin Aspart 100 Units/Ml 3 Ml Pen) 0 units SC ACHS [facility] Stop: 02/24/21 20:59 Last Admin: 01/31/21 13:16 Dose: 1 units Documented by: Melatonin (Melatonin 3 Mg Tab) 6 mg PO HS [facility] Stop: 02/26/21 20:59 Last Admin: 01/30/21 20:43 Dose: 6 mg Documented by: Miconazole Nitrate (Miconazole Nitrate Powder 43 Gm) 1 appln EXT PRN PRN PRN Reason: Affected Skin Folds Stop: 02/27/21 11:01 Miscellaneous (Carbohydrates For Hypoglycemia ) 15 - 30 gm PO UD PRN PRN Reason: Hypoglycemia Protocol Stop: 02/23/21 12:15 Miscellaneous Information (Daptomycin Consult Active) 1 ea N/A UD PRN PRN Reason: Consult Stop: 02/24/21 13:03 Multivitamins (Multivitamin Tab) 1 tab PO QAM [facility] Stop: 02/26/21 10:59 Last Admin: 01/31/21 09:37 Dose: 1 tab Documented by: Ondansetron HCl (Ondansetron Inj 2 Mg/Ml 2 Ml Vial) 4 mg IV Q6H PRN PRN Reason: Nausea Stop: 02/23/21 12:15 Polyethylene Glycol (Polyethylene (Miralax) 17 Gm Pack) 17 gm PO BID [facility] Stop: 03/01/21 20:59 Last Admin: 01/31/21 09:35 Dose: 17 gm Documented by: Senna/Docusate Sodium (Docusate Sodium/Senna 50/8.6mg Tab) 1 tab PO BID [facility] Stop: 02/26/21 10:59 Last Admin: 01/31/21 09:38 Dose: 1 tab Documented by: Simethicone (Simethicone 80 Mg Chew) 80 mg PO BID PRN PRN Reason: Dyspepsia Stop: 02/26/21 10:52 Tramadol HCl (Tramadol Hcl 50 Mg Tablet) 50 mg PO BID PRN PRN Reason: Pain level 5-10 Stop: 02/26/21 10:29 Last Admin: 01/31/21 14:36 Dose: 50 mg Documented by: Trolamine Salicylate (Trolamine Salicylate 10% Crm 255 Appln/85 Gm Tube) 1 appln EXT ONCE ONE Stop: 01/31/21 16:07 Vitamin B Complex (Vitamin B Complex Tab) 1 tab PO QAM [facility] Stop: 02/26/21 10:59 Last Admin: 01/31/21 09:39 Dose: 1 tab Documented by: Vitamin D (Cholecalciferol 1,000 Units 25 Mcg Tab) 5,000 units PO QAM [facility] Stop: 02/26/21 10:59 Last Admin: 01/31/21 09:38 Dose: 5,000 units Documented by: Resident Activity Tracking Resident Involvement: Resident Care Provided Care Provided: Adult Hospital Medicine (1) Catheter-associated urinary tract infection Encounter type: initial encounter Indwelling urinary catheter type: indwelling urethral catheter Qualified Code(s): T83.511A - Infection and inflammatory reaction due to indwelling urethral catheter, initial encounter; N39.0 - Urinary tract infection, site not specified
[2021-01-31] MEDS: traMADol HCL 50 MG TABLET PO PRN (14:36)
[2021-01-31] MEDS ORDERED: TROLAMINE SALICYLATE 10% CRM 255 APPLN/85 GM TUBE EXT PRN (16:25)
[2021-01-31] MEDS ORDERED: TROLAMINE SALICYLATE 10% CRM 255 APPLN/85 GM TUBE EXT ONE (16:30)
[2021-01-31] MEDS: MELATONIN 3 MG TAB PO SCH (21:29)
[2021-02-01] MEDS: HEPARIN SOD 5,000 UNIT/0.5 ML VIAL SQ SCH ×2 (05:53→14:34)
[2021-02-01 07:10] LABS: Basophils # (auto) 0.02 K/uL (0-0.2); Basophils % (auto) 0.2 %; Eosinophils # (auto) 0.28 K/uL (0-0.5); Eosinophils % (auto) 3.1 %; Hematocrit (blood only) 33.6 % (37-47); Hemoglobin 10.5 g/dL (12.0-16.0); Immature Granulocytes # (auto) 0.03 K/uL (0.00-0.02); Immature Granulocytes % (auto) 0.3 %; Lymphocytes # (auto) 2.72 K/uL (1.2-3.4); Lymphocytes % (auto) 30.2 %; Mean Corpuscular Hemoglobin 30.1 pg (25-34); Mean Corpuscular Hgb Conc 31.3 g/dL (32-36); Mean Corpuscular Volume 96.3 fL (80-100); Mean Platelet Volume 9.3 fL (7.4-10.4); Monocytes # (auto) 0.85 K/uL (0.11-0.59); Monocytes % (auto) 9.4 %; Neutrophils # (auto) 5.11 K/uL (1.4-6.5); Neutrophils % (auto) 56.8 %; Platelet Count 323 K/uL (130-400); RDW Coefficient of Variation 16.2 % (11.5-14.5); RDW Standard Deviation 56.4 fL (36.4-46.3); Red Blood Count 3.49 M/uL (4.2-5.4); White Blood Count 9.01 K/uL (4.8-10.8)
[2021-02-01 07:47] LABS: BUN Creatinine Ratio 16.2 (10-20); Est GFR (African American) 21.3 ml/min; Est GFR (Non-African American) 18.4 ml/min
[2021-02-01] MEDS: buPROPion XL 300 MG TABCR PO SCH (09:05)
[2021-02-01] MEDS: BACLOFEN 10 MG TAB PO SCH ×2 (09:05→14:33)
[2021-02-01] MEDS: busPIRone 15 MG TAB PO SCH (09:06)
[2021-02-01] MEDS: CHOLECALCIFEROL 1,000 UNITS 25 MCG TAB PO SCH (09:06)
[2021-02-01] MEDS: DOCUSATE SODIUM/SENNA 50/8.6MG TAB PO SCH (09:07)
[2021-02-01] MEDS: DULoxetine HCL 60 MG CAP PO SCH (09:07)
[2021-02-01] MEDS: GABAPENTIN 400 MG CAP PO SCH ×2 (09:08→14:32)
[2021-02-01] MEDS: FERROUS SULFATE 325 MG TAB PO SCH (09:08)
[2021-02-01] MEDS: FAMOTIDINE 20 MG TAB PO SCH (09:08)
[2021-02-01] MEDS: MULTIVITAMIN TAB PO SCH (09:09)
[2021-02-01] MEDS: HYDROCODONE/ACETAMOPHEN 5/325MG TAB PO SCH (09:09)
[2021-02-01] MEDS: VITAMIN B COMPLEX TAB PO SCH (09:10)
[2021-02-01] MEDS: POLYETHYLENE (MIRALAX) 17 GM PACK PO SCH (09:10)
[2021-02-01] MEDS: INSULIN ASPART 100 UNITS/ML 3 ML PEN SC SCH ×2 (09:13→13:08)
--- NOTE | 2021-02-01 09:14 | Hospitalist Progress Note ---
Date of Service February 01, 2021 Assessment & Plan (1) Catheter-associated urinary tract infection: Plan: Patient has chronic indwelling engel, cateter-associated UTI present on admittion. Patient blood an urine cultures collected 01/24 results gram positive cocci chains, 01/26 found enterococcus faecalis species, 01/27 found sensitivity to penicillin, patient has anaphylactic allergy to penicillin so it was removed from consideration. Found 3 organisms in high count in urine 01/26/21. Repeat uring blood cultures from 01/27/21 negative. - initially on Ertapenem 500mg Q24, added Daptomycin 500mg Q48, ertapenem discontinued 01/29/21 - will likely continue IV abx through discharge (2) Acute kidney injury superimposed on CKD: Plan: Creatinine 2.78 upon admission, with range 1.78-2.10, NSS at 100 mils per hour. IV fluids stopped 2 days ago. Creat and BUN found to be uptrending, restarted IVF with LR 100mls/hr yesterday. -Current creatinine 2.32 (<--2.82 <--2.62<--2.42<--1.94),BUN 42(<--46<-- 4 2<--36<--30), improving -fluid input 2456 output 3525, -WBC 7.88, urine in engel yellow clear, joey unlikely due to infectious or postrenal etiology -continue to monitor bmp cbc i/o, reduced LR to 75ml/hr (3) Bacteremia due to Enterococcus: Plan: Blood culture 01/24 revealed enterococcus facialis sensitive to penicillin, patient allergy anaphylaxis to penicillin, placed on ertapenem and daptomycin. Echo ordered,mild diastolic dysfunction study limited. Repeat blood culture ordered 01/27 negative -continue daptomycin (4) Confusion and disorientation: Plan: Underlying dementia, aggravated by urinary tract infection. Have available Haldol 5 mg IM every 8 hours as needed, and lorazepam 1 mg IV every 6 hours as needed -resolved (5) Agitation: Plan: see above (6) Calculus of proximal right ureter: Plan: 2 calculi found in proximal right ureter up to 5mm with hydronephrosis. Patient had previous stents placed bilaterally due to previous history of chronic calculi. Stents were removed and replaced bilaterally by Urology 01/25/21 (7) Hydronephrosis, right: Plan: Hydronephrosis of right ureter secondary to calculi. Stents replaced by urology 01/25/21 (8) Dyslipidemia: Plan: Continue home medications (9) Depression with anxiety: Plan: Continue home medications -resumed 01/27/21 melatonin, duloxetine, duspirone, bupropion (10) Diabetes mellitus type 2 in obese: Plan: Currently on sliding scale Novolog, last A1C 7.3 01/25/21 -currenty glucose 115 (11) Occupational therapy encounter: Plan: Seen by OT. Patient is dependent for all self care and bedbound at baseline, does not qualify for OT and was discharged from OT 12) PT -seen by PT, PT not indicated at his time 13) Chronic Pain resumed home medications 01/27/21 hydrocodone/acetaminophen, baclofen, gabapentine, has tramadol PRN. Ordered Bengay PRN 14) Rash Noted on abd yesterday, Miconazole Nitrate cream ordered and applied, rash improved today 15) Constipation Patient on Senna/Ducosate, given Miralax 2 days ago adjusted to BID yesterday. Today still no BM (12) Chronic pain: Plan: FENa: [] Code Status: DNR/DNI DVT PPX: Heparin PT/OT: seen by PT/OT, not indicated at this time Case Management: [return to [facility] when medically stable] Dispo: [carb consistent heart healthy diet] Jazmine Rivero Do PGY 1, FCM Admission and Anticipated Discharge Date Admission Date: January 24, 2021 Results & Data Results & Data ([facility]) Vital Signs (Past 12 Hours) Vital Signs Temp Pulse Resp BP BP Pulse Ox 02/01/21 08:01 36.6 C 81 18 145/84 H 93 01/31/21 22:10 36.5 C 85 18 107/70 95 Resident Activity Tracking Resident Involvement: Resident Care Provided Care Provided: Adult Hospital Medicine (1) Catheter-associated urinary tract infection Encounter type: initial encounter Indwelling urinary catheter type: indwelling urethral catheter Qualified Code(s): T83.511A - Infection and infla mmatory reaction due to indwelling urethral catheter, initial encounter; N39.0 - Urinary tract infection, site not specified
[2021-02-01] MEDS: LACTATED RINGER'S 1,000 ML IV SCH (11:14)
[2021-02-01] MEDS: DAPTOmycin 500 MG in SYRINGE 0 ML IV SCH (15:15)
--- NOTE | 2021-02-01 15:57 | Discharge Summary ---
Date of Service February 01, 2021 Admission HPI Per Admitting Provider The patient is a 66-year-old female with a past medical history including CKD stage IIIb, catheter associated UTIs, headache, bone infection, glucose intolerance, pyelonephritis, COVID-19 infection, morbid obesity, SOLEDAD on CKD, depression with anxiety, dyslipidemia, diabetes mellitus type 2, bladder lesion, and history of CVA. Patient has a chronic indwelling Engel catheter, has had recurrent urinary tract infections, including ESBL, and was noted to be confused and had combativeness this morning at [facility]. Patient was combative in the emergency department, and received IV Ativan IM Haldol and C ogentin which relieved combativeness. Her daughter is present, who provides HPI and review of systems information Admission Exam Per Admitting Provider The patient is sedated, well developed and well nourished, normocephalic and atraumatic, lying in bed and in no acute distress. HEENT--PERRL, EOMI, mucous membranes and oropharynx dry. Neck--supple. No JVD. No bruits. Thyroid normal, trachea midline, no adenopathy. Heart--normal S1 and S2. No murmurs, rubs or gallops. Lungs--clear bilaterally, no respiratory distress, no accessory muscle use. Abdomen--normal bowel sounds and soft. Morbidly obese. Nondistended Extremities--no cyanosis or clubbing. No edema. Dermatologic--normal skin turgor, no rash Neurologic--cranial nerves II through XII grossly intact. Rheumatologic--limited exam due to sedation Psychiatric--sedated Principal Diagnosis Catheter associated UTI with Bacteremia Discharge Exam Constitutional WD/WN, vitals as above + morbidly obese, cooperative and comfortable Eyes PERRL, conjunctivae normal, anicteric sclerae Respiratory normal respiratory effort, lungs clear to auscultation no respiratory distress, no cough and no audible wheezes Cardiovascular RRR, no murmur, no edema Rate/Rhythm: regular rate and regular rhythm Heart Sounds: normal S1 and normal S2; no gallop, no murmur and no cardiac rub Gastrointestinal (Abdomen) normal bowel sounds, soft, nontender, no hepatosplenomegaly Inspection/Auscultation: abdomen not distended Percussion/Palpation: abdomen nontender Musculoskeletal no cyanosis or clubbing, extremities motor strength 5/5 Extremities: + limited ROM of extremities (Chronic pain in right knee) Skin no rashes, warm and dry normal turgor and + rash (about 5 in long on abdomen, fading) Neurologic PERRL, EOMI, accommodation nl, no face palsy, no dysarthria Discharge Data Allergies Allergy/AdvReac Type Severity Reaction Status Date / Time Penicillins Allergy Severe Anaphylaxis Verified 01/27/21 17:44 cefazolin [From Ancef] Allergy Unknown Unknown Verified 01/24/21 08:42 pregabalin Allergy Unknown Unknown Verified 01/24/21 08:42 tramadol Allergy Unknown Unknown Verified 01/24/21 08:42 ertapenem AdvReac Severe See comment Verified 01/24/21 10:51 oxycodone AdvReac Unknown Unknown Unverified 01/24/21 08:42 Consultations 01/24/21 09:54 ED Decision to Admit Stat 01/24/21 09:57 ED Decision to Admit Stat 01/24/21 11:49 Consult Urology Routine Procedures Performed Operation Date: 01/25/21 05:30 Actual Procedures p Cystoscopy, Bilateral Stent Exchange(Bilateral) - Tyree Toney, Ordered Studies 01/24/21 07:29 CT head/brain wo con Stat 01/24/21 10:38 CT abd pelvis wo con Stat 01/25/21 FL retrograde includes kub Routine 02/01/21 14:11 US renal/blad retro comp Urgent EXAMINATION: RENAL ULTRASOUND CLINICAL HISTORY: Renal insufficiency COMPARISON STUDY: CT scan dated 01/24/2021 FINDINGS: The right kidney measures 8.7 cm. The left kidney measures 10.2 cm. There is a 19 mm hypoechoic focus within the midpole the left kidney. Although likely representing a lobulation, a solid renal mass cannot be excluded. There is no hydronephrosis. The bladder was decompressed the time of imaging due to an indwelling Engel catheter. The study was significantly limited from a technical standpoint due to the patient's large body habitus and inability to cooperate with optimal positioning. IMPRESSION : 1. Technically limited study 2. No evidence of hydronephrosis 3. 19 mm hypoechoic focus within the midpole the left kidney. Although likely representing a lobulation, a solid renal mass cannot be excluded with certainty Hospital Course (1) Catheter-associated urinary tract infection: Patient has chronic indwelling engel, catheter-associated UTI present on admission. Patient blood an urine cultures resulted gram positive cocci chains enterococcus faecalis species sensitive to penicillin, patient has anaphylactic allergy to penicillin so it was removed from consideration. Patient placed on ertapenem and daptomycin, ertapenem later discontinued. Found 3 organisms in high count in urine 01/26/21. Repeat urine blood cultures negative. Patient sent back to [facility] on IV daptomycin, to be continued until 02/07/21. Follow up with urology. Consider discontinuing chronic engel. (2) Acute kidney injury superimposed on CKD: Creatinine 2.78 upon admission, given IVF. Creatinine went down post stent exchange, trended back up last check 2.63. Placed on lactate ringers. Her WBC WNL urine in engel clear no nephrotoxic medication, was sent for renal US to evaluate for hydronephrosis. Follow up results with outpatient PCP. Please monitor BMP creatinine trends every 2-3 days. If creatinine continues to trend upwards, consider consulting nephrology. (3) Bacteremia due to Enterococcus: Patient blood and urine cultures resulted gram positive cocci chains enterococcus faecalis species sensitive to penicillin, patient has anaphylactic allergy to penicillin so it was removed from consideration. Patient placed on ertapenem and daptomycin, ertapenem later discontinued.Repeat blood culture negative. Echo ordered,mild diastolic dysfunction study limited. Patient sent back to [facility] on IV daptomycin, to be continued until 02/07/21. (4) Confusion and disorientation: Underlying dementia, aggravated by urinary tract infection, was placed on haldol and ativan PRN. Has since resolved. (5) Agitation: see above (6) Calculus of proximal right ureter: 2 calculi found in proximal right ureter up to 5mm with hydronephrosis. Patient had previous stents placed bilaterally due to previous history of chronic calculi. Stents were removed and replaced bilaterally by Urology 01/25/21. Follow up with urology in outpatient. (7) Hydronephrosis, right: Hydronephrosis of right ureter secondary to calculi. Stents replaced by urology 01/25/21. Renal ultrasound ordered to evaluate hydronephrosis as possible cause of creatinine uptrend, follow up results with outpatient PCP. (8) Dyslipidemia: Statin discontinued due to interactions with daptomycin. To be resumed after daptomycin course finished 02/07/21. (9) Depression with anxiety: Continue home medications (10) Diabetes mellitus type 2 in obese: Currently on sliding scale Novolog, last A1C 7.3 01/25/21. Continue following with PCP. (11) Occupational therapy encounter: (12) Chronic pain: Continue home medications. Tried Bengay to no effect, consider volteran gel. Follow with PCP. 13) Rash Noted on abd. Miconazole Nitrate cream ordered and applied, rash improved. 14) Constipation Continue home meds. Given miralax in hospital, helped. 15) Renal Hypoechoic Focus 19 mm hypoechoic focus within the midpole the left kidney found on ultrasound. Follow up with urology. Total Time Total Time Spent Total Time Spent (In Minutes): <30 Discharge Plan Discharge Items Patient Disposition: Trans Resident Long-Term Care Reason For Visit: UTI,CONFUSION,SOLEDAD ON CKD Discharge Diagnosis: Catheter Associated UTI with Bacteremia Condition on Discharge: Fair Activity: Resume your previous activity Non-emergency contact: Primary Care Provider Call non-emergency contact if: you have any medication questions, your symptoms worsen and you have a fever Follow-up/Referrals: Tyree Toney DO [Physician] - 03/23/21 1:30 pm (appointment is to schedule next stent placement ) [facility],Nursing [Primary Care Provider] - Diet: Carb Consistent or DM2 and Heart Healthy Addtl Attending Provider Instructions: Patient admitted to hospital 01/24/21 for AMS, CAUTI, nephrolithiasis, bacteremia. Her blood and urine cultures were positive for gram positive enterococcus faecalis, initially started on ertapenem and daptomycin 01/24/21, ertapenem discontinued. Cultures were sensitive to penicillin, not considered as patient is anaphylactic to penicillin. She had bilateral stent replacements performed 01/25/21. Her BUN creatinine decreased post operation but later began uptrending, last measure BUN 43 Creatinine 2.64, her creatinine baseline is around 1.7-2.2. Patient has no nephrotoxic medication, is well hydrated, engel catheter urine clear. Patient will return to [facility] with engel catheter. Please continue to trend her BMP every 2-3 days until creatinine stops trending to determine creatinine baseline. If creatinine continues to trend upwards consider consulting nephrology. Patient should follow up with urology in outpatient in 1-2wks. Renal ultrasound was performed to evaluate for hydronephrosis, please follow up results with PCP. Patient should complete 2wk course IV daptomycin ending 02/07/21, her most recent dose was 02/01/21. Her simvastatin was discontinued due to interactions with daptomycin, may restart simvastatin once daptomycin is finished. Patient complains of chronic R knee pain for 1 month possibly secondary to arthritis, pain radiates down samaniego, is currently on tylenol, baclofen, buspirone, bupropion, duloxetine, gabapentine, hydrocodone-acetaminophen, and tramadol. Ativan has helped her sleep at night. Consider voltaren gel for localized pain relief. Patient should follow up with her PCP in 1 week. Pending Studies at Discharge: Yes Studies:: Renal Ultrasound Stand-Alone Forms: My [facility] Skilled Items Patient informed of condition?: Yes DNR: Yes Discharge Level of Care: Skilled Communicable Disease: No Discharge Prognosis: Stable Lines: Peripheral IV Urinary Catheter: Yes Medications and DC Order Prescriptions: New daptomycin 500 mg recon soln 500 mg IV Q48H 5 Days Qty: 10 RF: 0 Continued alogliptin [Nesina] 25 mg Tablet 25 mg PO QAM RF: 0 Stress Formula Tablet 1 tab PO QAM RF: 0 baclofen 10 mg tablet 10 mg PO TID RF: 0 bisacodyl 10 mg Suppository 10 mg [place] DIRECTED PRN (Reason: Constipation) RF: 0 acetaminophen [Tylenol] 325 mg Tablet 650 mg PO Q6 MDD 3gm PRN (Reason: temp>101) RF: 0 cholecalciferol (vitamin D3) [Vitamin D3] 125 mcg (5,000 unit) Tablet 5,000 unit PO QAM RF: 0 acetaminophen [Tylenol Extra Strength] 500 mg Tablet 1,000 mg PO Q6H PRN (Reason: pain lever: 1-4) RF: 0 duloxetine [Cymbalta] 60 mg Capsule,Delayed Release(Dr/Ec) 60 mg PO QAM RF: 0 gabapentin [Neurontin] 400 mg capsule 800 mg PO TID RF: 0 insulin aspart U-100 [Novolog U-100 Insulin aspart] 100 unit/mL solution See Rx Instructions .ROUTE .COMPLEX RF: 0 vitamin B complex Tablet 1 tab PO QAM RF: 0 D Mannose 350mg Capsule 1,050 mg PO BID RF: 0 famotidine [Pepcid] 20 mg tablet 20 mg PO BID RF: 0 dextrose 40 % Gel 1 ea PO UD RF: 0 simethicone [Gas-X Extra Strength] 125 mg Capsule 125 mg PO BID PRN (Reason: Dyspepsia) RF: 0 ferrous sulfate [Iron (ferrous sulfate)] 325 mg (65 mg iron) Tablet 325 mg PO QAM RF: 0 bupropion HCl [Wellbutrin XL] 300 mg Tablet Extended Release 24 Hr 300 mg PO QAM RF: 0 melatonin 5 mg Tablet 5 mg PO HS RF: 0 Glucagon (HCl) Emergency Kit 1 mg Recon Soln 1 mg IM UD RF: 0 sennosides-docusate sodium [Senokot-S] 8.6-50 mg tablet 1 tab PO BID RF: 0 buspirone 15 mg Tablet 15 mg PO BID RF: 0 hydrocodone-acetaminophen 5-325 mg Tablet 1 tab PO BID RF: 0 tramadol 50 mg Tablet 50 mg PO BID PRN (Reason: Pain level 5-10) RF: 0 Discontinued simvastatin [Zocor] 20 mg Tablet 20 mg PO HS RF: 0 Discharge Orders: Discharge Order (Routine); Ordered 02/01/21 Ordered By: Jazmine Veras/Other Patient Handouts: Catheter-Linked Urinary Tract ..., Diabetes: Caring for Your Body, Anatomy of the Female Urinary Tract, Diabetes and Kidney Disease, Communicating About Pain, Chronic Pain Therapies Mind Body, CKD Dc, Diabetes Carbs Fats Protein, ED Diet for Chronic Kidney Disease Admission Data Admit Date/Time: 01/24/21 10:50 Attending Provider: Wesley Cardoso Admit Provider: Raymond Harris Primary Care Provider: [facility],Nurs[facility] Other Providers: Dale Hillman ; Raymond Harris ; Tyree Toney ; Brett Holbrook Other Interventions: Discharge Summary Assessment (RN) Last Done: 02/01/21 16:21 Supervising Physician Co-Signing Physician Notes I personally examined the patient and verified all del rosario points of history and exam, discussed case, and agree with decision making with Dr Rivero. Generally feeling better, and very much wants to return to [facility]. Notes right knee pain, and spasms from the pain. Notes that is been going on for a while, feels that it was not addressed at [facility]. Daughter arrives during her visit, she is updated, and expresses understanding and agreement with plan as well. Vitals noted, in general she is awake and alert pleasant overall no distress. Occasionally she winces with right knee pain. HEENT normocephalic atraumatic mucous membranes moist. Breathing unlabored no accessory muscle use good effort. Right knee very tender to palpate along the joint line, may be a small effusion, no erythema no warmth. She has pain with range of motion of her knee as well. She has a little bit of patellar crepitus whenever she straightens it. Sepsis/bacteremia from Enterococcus secondary to catheter associated UTI from chronic catheterizationimproved, stable for return to SNFfinish out course of daptomycin given her penicillin allergy. Ongoing urology management. CKD stage IIIbwhile her creatinine still has a bit of a wide swing to it, overall her GFR has been right in the 3B/early stage IV rangewith a calculated difference of GFR of only about 4 mils per minute from yesterday to today. Renal ultrasound without hydronephrosis, suspect this is in her baseline range, stable for return to [facility] with close monitoring. Renal stentingoutpatient urology follow-up. Question of mass seen on ultrasoundgiven that it was not seen on CT, I question whether or not it is real. Fortunately she has close and ongoing urology follow-upand we will appreciate their vigilance on this matter. Right knee painsuspect osteoarthritis and patellar tendinitis. Can increase baclofen given that it may help with some of the muscle pain, trial of topical diclofenac 4 times daily, if that is not helping enoughthen orthopedics evaluation. otherwise as above, stable for return to SNF Resident Activity Tracking Resident Involvement: Resident Care Provided Care Provided: Adult [facility]
--- NOTE | 2021-02-01 16:02 | Ultrasound Report ---
EXAMINATION: RENAL ULTRASOUND CLINICAL HISTORY: Renal insufficiency COMPARISON STUDY: CT scan dated 01/24/2021 FINDINGS: The right kidney measures 8.7 cm. The left kidney measures 10.2 cm. There is a 19 mm hypoe choic focus within the midpole the left kidney. Although likely representing a lobulation, a solid re nal mass cannot be excluded. There is no hydronephrosis. The bladder was decompressed the time of imaging due to an indwelling Fallon catheter. The study was significantly limited from a technical standpoint due to the patient's large body habit us and inability to cooperate with optimal positioning. IMPRESSION : 1. Technically limited study 2. No evidence of hydronephrosis 3. 19 mm hypoechoic focus within the midpole the left kidney. Although likely representing a lobulati on, a solid renal mass cannot be excluded with certainty ACT 112: Negative or not required by law. Electronically signed by: Denton Cerda M.D. 02/01/2021 4:01 PM
--- NOTE | 2021-02-01 18:16 | Billing Data ---
Date of Service February 01, 2021 Coding Level of Care Code D/C DAY MANAGEMENT <30 MINS
== END 2021-02-01 17:05 | DRG 659 ==
LOC: ED 07:07 → 3W 10:50 → SUATTDRO 10:50 → 3W 11:37

== ENCOUNTER 2021-02-12 11:37 | Inpatient (IN) ==
[2021-02-12] MEDS ORDERED: DAPTOmycin 500 MG in SYRINGE 0 ML IV STA (12:04)
[2021-02-12] MEDS ORDERED: ERTAPENEM SODIUM 500 MG in SODIUM CHLORIDE 0.9% 50 ML IV ONE (12:15)
--- NOTE | 2021-02-12 12:28 | Emergency Department Note ---
Impression & Plan Acute alteration in mental status, Urinary tract infection ED Provider Note NAME: MARGE MERCEDES AGE: 66 SEX: F : 1955 ARRIVES VIA: Ambulance INFORMANT: Patient, EMS personnel and nursing ED PROVIDER(S): Bari Nails DO CHIEF COMPLAINT: Altered mental status. HPI: The patient is a 66-year-old female who presented to the emergency department with altered mental status. The patient is unable to give any history. History was obtained from the prehospital personnel as well as the nursing staff. Apparently the patient has a history of urinary tract infections in the past. She does have a chronic indwelling Fallon. She does reside at a senior care. The patient apparently has been having difficulty breathing and altered mental status over the last 24 hours. There is been no reported vomiting. There is been no definite fever reported. The patient has lower extremity swelling but this is not new. The patient has a history of chronic urinary tract infections in the past with difficult to manage bacteria. History was significantly limited secondary to the patient's altered mental status. She does not answer any questions and appears to have sonorous respiration on my evaluation. ROS: See above HPI for pertinent positives & negatives. A total of 10 systems reviewed and were otherwise negative. PAST MEDICAL HISTORY: See Below PAST SURGICAL HISTORY: See Below FAMILY HISTORY: See Below SOCIAL HISTORY: See Below HOME MEDICATIONS: See Below ALLERGIES: See Below VITALS: See Below PHYSICAL EXAMINATION: GENERAL: The patient is asleep. She does not respond to verbal commands. She does moan to painful stimuli but does not answer questions appropriately. EYES: The conjunctivae are clear. The pupils are round and reactive. EARS, NOSE, MOUTH AND THROAT: The nose is without any evidence of any deformity. Mucous membranes are dry. NECK: The neck is nontender and supple. RESPIRATORY: Shallow respirations were noted. Diminished breath sounds are noted throughout. CARDIOVASCULAR: Regular rate and rhythm noted there no murmurs rubs or gallops normal S1 normal S2. GASTROINTESTINAL: The abdomen is mildly distended. There is no guarding or rigidity. MUSCULOSKELETAL/EXTREMITIES: There is no evidence of gross deformity full range of motion is noted in the hips and shoulders. SKIN: Pedal edema was noted bilaterally. Skin was warm and dry. NEUROLOGIC: Patient is asleep with sonorous respirations. She moves all extremities to painful stimuli but does not follow commands. I am unable to assess orientation at this time. MEDICAL DECISION MAKING: The patient is a 66-year-old female who presented to the emergency department by ambulance. The patient had alteration in mental status. She also is a history of chronic urinary tract infections with chronic Fallon. The patient was treated with IV fluids and IV antibiotics in the emergency department. She was reevaluated multiple times. The patient's mental status was not at baseline according to the prehospital personnel. For this reason I [facility] to evaluate the patient in the emergency department for further management and disposition. The patient's family members did present to the emergency department eventually and they reiterated that the patient has a POLST form. Triage Nursing notes reviewed. Prior medical records reviewed Vital Signs: reviewed and remarkable for elevated blood pressure. Differential diagnosis: Infection, hypoglycemia, electrolyte abnormalities, overdose, toxicologic, cardiac sources, intracerebral event, neurologic, trauma, as well as other pathologies. ER treatment provided: See below Diagnostics interpreted by me: ECG: EKG was obtained in the emergency department. My interpretation is normal sinus rhythm at 80 bpm. PVCs were noted. This was compared to a tracing from January 242020. No significant changes were noted. Cardiac Monitoring: An order was placed for continuous cardiac monitoring. The monitor shows a rate of 82 bpm with sinus rhythm. Laboratory studies: As stated above and show below. Imaging studies: See below Consultation(s): I discussed this case with Dr. Hough who [facility] She will evaluate the patient in the emergency department. Past Med/Surg History Medical History Allergic rhinitis Anemia anemia of chronic disease per senior care records. Most recent H/H WNL 11/24/20. Bone infection Bunion Chronic pain CKD (chronic kidney disease) stage 3, GFR 30-59 ml/min Acute on chronic kidney injury 06/2020. Depression with anxiety Dermatitis Diabetes mellitus type 2 in obese Most recent A1C 04/2020 8.3% Disorders of magnesium metabolism Review of 2019 records (most recent on file 05/21/20) show Mg WNL Dyslipidemia Extended spectrum beta lactamase (ESBL) resistance Generalized atherosclerosis GERD (gastroesophageal reflux disease) H/O: CVA (cerebrovascular accident) 2013 per records Hammer toe Headache History of COVID-19 05/2020> resolved per [facility] staff History of recurrent UTI (urinary tract infection) Hypokalemia K+ WNL on 11/24/20 labs Incontinence Indwelling Fallon catheter present Lesion of bladder Microscopic hematuria Morbid obesity Muscle spasm Osteomyelitis Overactive bladder Personal history of methicillin resistant Staphylococcus aureus Tinea unguium Ulcerative colitis Uropathy, obstructive Surgical History History of cataract surgery History of cystoscopy stent exchange: 05/05/20: MAC sedation at [facility] [place] stent exchange: 08/17/20: MAC sedation at [facility] [place] Hx of surgical procedure presence of urogenital implants Presence urogenital implant S/P cholecystectomy Family History Mother , age 79 of esophageal cancer Hypertension Father , in mid 60s of an [place] Myocardial infarction Social History Smoking Status: Former smoker Tobacco Type: Cigarettes Age Quit Using Tobacco: 48; Second Hand Exposure: No; Do You Dip or Chew Tobacco: No; Tobacco Cessation Education Requested by Patient: No Hx Alcohol Use: No Hx Substance Use: No Preferred Language: Romanian Communication Ability: Effective Visual Impairment: No Limitations Plater Supervisor Required: No Beliefs That Will Affect Care: None marital status: Current Living Situation: Residential Current Living Situation Comment: [facility] Resident current occupational status: retired Other Information That Helps Us Care for You: No Feels Safe at Home: No Is there a partner from a previous relationship who is making you feel unsafe now?: No Any Concerns about Your Family Situation: No Would You Like to Speak to Someone About Your Situation: No Safety Concerns: Feels Safe At This Time Assistive Devices: Glasses Allergies Allergies Allergy/AdvReac Type Severity Reaction Status Date / Time Penicillins Allergy Severe Anaphylaxis Verified 02/12/21 15:54 cefazolin [From Ancef] Allergy Unknown Unknown Verified 02/12/21 15:54 pregabalin Allergy Unknown Unknown Verified 02/12/21 15:54 tramadol Allergy Unknown Unknown Verified 02/12/21 15:54 ertapenem AdvReac Severe See comment Verified 02/12/21 15:54 oxycodone AdvReac Unknown Unknown Unverified 02/12/21 15:54 Home Meds Home Medications Medication Instructions Recorded Confirmed acetaminophen 325 mg tablet 650 mg PO Q6 PRN MDD 3gm 05/23/18 02/12/21 (Tylenol) cholecalciferol (vitamin D3) 125 5,000 unit PO QAM 09/25/19 02/12/21 mcg (5,000 unit) tablet (Vitamin D3) alogliptin 25 mg tablet (Nesina) 25 mg PO QAM 06/17/20 02/12/21 baclofen 10 mg tablet 10 mg PO TID 06/17/20 02/12/21 multivitamin, stress formula 1 tab PO QAM 06/17/20 02/12/21 (Stress Formula) bisacodyl 10 mg rectal suppository 10 mg OK DIRECTED PRN 07/20/20 02/12/21 bupropion HCl 300 mg 24 hr tablet, 300 mg PO QAM 11/13/20 02/12/21 extended release (Wellbutrin XL) ferrous sulfate 325 mg (65 mg 325 mg PO QAM 11/13/20 02/12/21 iron) tablet (Iron (ferrous sulfate)) melatonin 5 mg tablet 5 mg PO HS 11/13/20 02/12/21 sennosides 8.6 mg-docusate sodium 1 tab PO BID 11/13/20 02/12/21 50 mg tablet (Senokot-S) simethicone 125 mg capsule (Gas-X 125 mg PO BID PRN 11/13/20 02/12/21 Extra Strength) buspirone 15 mg tablet 15 mg PO BID 11/30/20 02/12/21 hydrocodone 5 mg-acetaminophen 325 1 tab PO BID 11/30/20 02/12/21 mg tablet tramadol 50 mg tablet 50 mg PO BID PRN 11/30/20 02/12/21 acetaminophen 500 mg tablet 1,000 mg PO Q6H PRN 12/03/20 02/12/21 (Tylenol Extra Strength) duloxetine 60 mg capsule,delayed 60 mg PO QAM 12/03/20 02/12/21 release (Cymbalta) D Mannose 350mg Capsule 1,050 mg PO BID 01/24/21 02/12/21 famotidine 20 mg tablet (Pepcid) 20 mg PO BID 01/24/21 02/12/21 gabapentin 400 mg capsule 800 mg PO TID 01/24/21 02/12/21 (Neurontin) insulin aspart U-100 100 unit/mL See Rx Instructions .ROUTE .COMPLEX 01/24/21 02/12/21 subcutaneous solution (Novolog U-100 Insulin aspart) vitamin B complex 1 tab PO QAM 01/24/21 02/12/21 Results & Data (ED) Vital Signs Vital Signs - 24 hr 02/12/21 11:42 02/12/21 11:49 02/12/21 12:15 Temperature 36.6 C Temperature Source Oral Pulse Rate 77 92 H Pulse Rate [Apical] Pulse Rate from SpO2 Sensor Respiratory Rate 14 18 Blood Pressure 140/68 140/68 Blood Pressure [Left Arm] Blood Pressure Mean 92 92 Blood Pressure Mean [Left Arm] Pulse Oximetry 94 93 Oxygen Delivery Method Room Air Sepsis Recent Fever Within 48 Hours No Sepsis New/Unexplained Change in Mental Status Yes Sepsis Action Taken by Nursing No Action Required 02/12/21 12:27 02/12/21 13:22 02/12/21 13:39 Temperature Temperature Source Pulse Rate Pulse Rate [Apical] 75 Pulse Rate from SpO2 Sensor Respiratory Rate 18 18 Blood Pressure Blood Pressure [Left Arm] 151/76 H Blood Pressure Mean Blood Pressure Mean [Left Arm] 101 Pulse Oximetry 94 93 92 Oxygen Delivery Method Room Air Room Air Room Air Sepsis Recent Fever Within 48 Hours Sepsis New/Unexplained Change in Mental Status Sepsis Action Taken by Nursing 02/12/21 14:45 02/12/21 15:00 02/12/21 15:15 Temperature Temperature Source Pulse Rate 83 92 H 85 Pulse Rate [Apical] 80 Pulse Rate from SpO2 Sensor 82 92 H 85 Respiratory Rate 12 18 20 Blood Pressure 134/74 135/93 160/78 H Blood Pressure [Left Arm] 159/84 H Blood Pressure Mean 94 107 105 Blood Pressure Mean [Left Arm] 109 Pulse Oximetry 92 93 93 Oxygen Delivery Method Room Air Sepsis Recent Fever Within 48 Hours Sepsis New/Unexplained Change in Mental Status Sepsis Action Taken by Nursing 02/12/21 15:30 Temperature Temperature Source Pulse Rate 77 Pulse Rate [Apical] Pulse Rate from SpO2 Sensor 78 Respiratory Rate 19 Blood Pressure 132/66 Blood Pressure [Left Arm] Blood Pressure Mean 88 Blood Pressure Mean [Left Arm] Pulse Oximetry 92 Oxygen Delivery Method Sepsis Recent Fever Within 48 Hours Sepsis New/Unexplained Change in Mental Status Sepsis Action Taken by Residential Medications Current Medication List: was personally reviewed by me Laboratory Data Attestation: I reviewed the patient's lab results. Result diagrams: 02/12/21 12:29 02/12/21 12:29 Lab Results 02/12/21 02/12/21 02/12/21 Range/Units 12:29 12:29 12:29 WBC 8.92 (4.8-10.8) K/uL RBC 3.43 L (4.2-5.4) M/uL Hgb 10.6 L (12.0-16.0) g/dL Hct 32.9 L (37-47) % MCV 95.9 (80-100) fL MCH 30.9 (25-34) pg MCHC 32.2 (32-36) g/dL RDW Std Deviation 59.4 H (36.4-46.3) fL RDW Coeff of Katina 16.9 H (11.5-14.5) % Plt Count 355 (130-400) K/uL MPV 9.5 (7.4-10.4) fL Immature Gran % (Auto) 0.3 % Neut % (Auto) 72.5 % Lymph % (Auto) 18.0 % Fountain % (Auto) 6.5 % Eos % (Auto) 2.1 % Baso % (Auto) 0.6 % Neut # (Auto) 6.46 (1.4-6.5) K/uL Lymph # (Auto) 1.61 (1.2-3.4) K/uL Fountain # (Auto) 0.58 (0.11-0.59) K/uL Eos # (Auto) 0.19 (0-0.5) K/uL Baso # (Auto) 0.05 (0-0.2) K/uL Immature Gran # (Auto) 0.03 H (0.00-0.02) K/uL PT 10.9 (9.0-12.0) Seconds INR 1.1 (0.9-1.1) APTT 24.5 (21.0-31.0) Seconds PTT Ratio 0.9 VBG pH (7.36-7.41) VBG pCO2 (38-50) mmHg VBG pO2 mmHg VBG HCO3 mmol/L VBG O2 Saturation % VBG Base Excess mEq/L Barometric Pressure mm/Hg Sodium 140 (136-145) mmol/L Potassium 4.1 (3.5-5.1) mmol/L Chloride 110 H (98-107) mmol/L Carbon Dioxide 22 (21-32) mmol/L Anion Gap 8.0 (3-11) BUN 47 H (7-18) mg/dl Creatinine 3.93 H (0.6-1.2) mg/dl Est Cr Clr Drug Dosing 18.9 ml/min Est GFR ( Amer) 13.2 ml/min Est GFR (Non-Af Amer) 11.4 ml/min BUN/Creatinine Ratio 11.8 (10-20) Glucose 125 H (70-99) mg/dl Lactate (0.4-2.0) mmol/L Calcium 9.6 (8.5-10.1) mg/dl Magnesium 2.8 H (1.8-2.4) mg/dl Total Bilirubin 0.5 (0.2-1) mg/dl AST 23 (15-37) U/L ALT 25 (12-78) U/L Alkaline Phosphatase 129 H (45-117) U/L Ammonia (11-32) umol/L Troponin I < 0.015 (0-0.045) ng/ml Total Protein 9.6 H (6.4-8.2) gm/dl Albumin 2.8 L (3.4-5.0) gm/dl Globulin 6.8 H (2.5-4.0) gm/dl Albumin/Globulin Ratio 0.4 L (0.9-2) Procalcitonin (0-0.5) ng/ml Urine Color Urine Appearance (Clear) Urine pH (4.5-7.5) Ur Specific [place] (1.000-1.030) Urine Protein (Negative) Urine Glucose (UA) (Negative) Urine Ketones (Negative) Urine Blood (Negative) Urine Nitrite (Negative) Urine Bilirubin (Negative) Urine Urobilinogen (Negative) Ur Leukocyte Esterase (Negative) Urine WBC (Auto) (0-5) /hpf Urine RBC (Auto) (0-4) /hpf U Hyaline Cast (Auto) (0-5) /lpf U Epithel Cells (Auto) (0-5) /lpf Urine Bacteria (Auto) (Negative) Urine Yeast COVID-19 Eval Order SARS-CoV-2 (PCR) (Negative) 02/12/21 02/12/21 02/12/21 Range/Units 12:29 12:29 12:29 WBC (4.8-10.8) K/uL RBC (4.2-5.4) M/uL Hgb (12.0-16.0) g/dL Hct (37-47) % MCV (80-100) fL MCH (25-34) pg MCHC (32-36) g/dL RDW Std Deviation (36.4-46.3) fL RDW Coeff of Katina (11.5-14.5) % Plt Count (130-400) K/uL MPV (7.4-10.4) fL Immature Gran % (Auto) % Neut % (Auto) % Lymph % (Auto) % Fountain % (Auto) % Eos % (Auto) % Baso % (Auto) % Neut # (Auto) (1.4-6.5) K/uL Lymph # (Auto) (1.2-3.4) K/uL Fountain # (Auto) (0.11-0.59) K/uL Eos # (Auto) (0-0.5) K/uL Baso # (Auto) (0-0.2) K/uL Immature Gran # (Auto) (0.00-0.02) K/uL PT (9.0-12.0) Seconds INR (0.9-1.1) APTT (21.0-31.0) Seconds PTT Ratio VBG pH (7.36-7.41) VBG pCO2 (38-50) mmHg VBG pO2 mmHg VBG HCO3 mmol/L VBG O2 Saturation % VBG Base Excess mEq/L Barometric Pressure mm/Hg Sodium (136-145) mmol/L Potassium (3.5-5.1) mmol/L Chloride (98-107) mmol/L Carbon Dioxide (21-32) mmol/L Anion Gap (3-11) BUN (7-18) mg/dl Creatinine (0.6-1.2) mg/dl Est Cr Clr Drug Dosing ml/min Est GFR ( Amer) ml/min Est GFR (Non-Af Amer) ml/min BUN/Creatinine Ratio (10-20) Glucose (70-99) mg/dl Lactate 0.8 (0.4-2.0) mmol/L Calcium (8.5-10.1) mg/dl Magnesium (1.8-2.4) mg/dl Total Bilirubin (0.2-1) mg/dl AST (15-37) U/L ALT (12-78) U/L Alkaline Phosphatase (45-117) U/L Ammonia 10.5 L (11-32) umol/L Troponin I (0-0.045) ng/ml Total Protein (6.4-8.2) gm/dl Albumin (3.4-5.0) gm/dl Globulin (2.5-4.0) gm/dl Albumin/Globulin Ratio (0.9-2) Procalcitonin 0.20 (0-0.5) ng/ml Urine Color Urine Appearance (Clear) Urine pH (4.5-7.5) Ur Specific [place] (1.000-1.030) Urine Protein (Negative) Urine Glucose (UA) (Negative) Urine Ketones (Negative) Urine Blood (Negative) Urine Nitrite (Negative) Urine Bilirubin (Negative) Urine Urobilinogen (Negative) Ur Leukocyte Esterase (Negative) Urine WBC (Auto) (0-5) /hpf Urine RBC (Auto) (0-4) /hpf U Hyaline Cast (Auto) (0-5) /lpf U Epithel Cells (Auto) (0-5) /lpf Urine Bacteria (Auto) (Negative) Urine Yeast COVID-19 Eval Order SARS-CoV-2 (PCR) (Negative) 02/12/21 02/12/21 02/12/21 Range/Units 13:22 13:22 13:27 WBC (4.8-10.8) K/uL RBC (4.2-5.4) M/uL Hgb (12.0-16.0) g/dL Hct (37-47) % MCV (80-100) fL MCH (25-34) pg MCHC (32-36) g/dL RDW Std Deviation (36.4-46.3) fL RDW Coeff of Katina (11.5-14.5) % Plt Count (130-400) K/uL MPV (7.4-10.4) fL Immature Gran % (Auto) % Neut % (Auto) % Lymph % (Auto) % Fountain % (Auto) % Eos % (Auto) % Baso % (Auto) % Neut # (Auto) (1.4-6.5) K/uL Lymph # (Auto) (1.2-3.4) K/uL Fountain # (Auto) (0.11-0.59) K/uL Eos # (Auto) (0-0.5) K/uL Baso # (Auto) (0-0.2) K/uL Immature Gran # (Auto) (0.00-0.02) K/uL PT (9.0-12.0) Seconds INR (0.9-1.1) APTT (21.0-31.0) Seconds PTT Ratio VBG pH 7.34 L (7.36-7.41) VBG pCO2 44 (38-50) mmHg VBG pO2 60 mmHg VBG HCO3 23 mmol/L VBG O2 Saturation 90.0 % VBG Base Excess -2.4 mEq/L Barometric Pressure 729.7 mm/Hg Sodium (136-145) mmol/L Potassium (3.5-5.1) mmol/L Chloride (98-107) mmol/L Carbon Dioxide (21-32) mmol/L Anion Gap (3-11) BUN (7-18) mg/dl Creatinine (0.6-1.2) mg/dl Est Cr Clr Drug Dosing ml/min Est GFR ( Amer) ml/min Est GFR (Non-Af Amer) ml/min BUN/Creatinine Ratio (10-20) Glucose (70-99) mg/dl Lactate (0.4-2.0) mmol/L Calcium (8.5-10.1) mg/dl Magnesium (1.8-2.4) mg/dl Total Bilirubin (0.2-1) mg/dl AST (15-37) U/L ALT (12-78) U/L Alkaline Phosphatase (45-117) U/L Ammonia (11-32) umol/L Troponin I (0-0.045) ng/ml Total Protein (6.4-8.2) gm/dl Albumin (3.4-5.0) gm/dl Globulin (2.5-4.0) gm/dl Albumin/Globulin Ratio (0.9-2) Procalcitonin (0-0.5) ng/ml Urine Color Urine Appearance (Clear) Urine pH (4.5-7.5) Ur Specific [place] (1.000-1.030) Urine Protein (Negative) Urine Glucose (UA) (Negative) Urine Ketones (Negative) Urine Blood (Negative) Urine Nitrite (Negative) Urine Bilirubin (Negative) Urine Urobilinogen (Negative) Ur Leukocyte Esterase (Negative) Urine WBC (Auto) (0-5) /hpf Urine RBC (Auto) (0-4) /hpf U Hyaline Cast (Auto) (0-5) /lpf U Epithel Cells (Auto) (0-5) /lpf Urine Bacteria (Auto) (Negative) Urine Yeast COVID-19 Eval Order Covid19 at [facility] [place] SARS-CoV-2 (PCR) NEGATIVE (Negative) 02/12/21 Range/Units 15:13 WBC (4.8-10.8) K/uL RBC (4.2-5.4) M/uL Hgb (12.0-16.0) g/dL Hct (37-47) % MCV (80-100) fL MCH (25-34) pg MCHC (32-36) g/dL RDW Std Deviation (36.4-46.3) fL RDW Coeff of Katina (11.5-14.5) % Plt Count (130-400) K/uL MPV (7.4-10.4) fL Immature Gran % (Auto) % Neut % (Auto) % Lymph % (Auto) % Fountain % (Auto) % Eos % (Auto) % Baso % (Auto) % Neut # (Auto) (1.4-6.5) K/uL Lymph # (Auto) (1.2-3.4) K/uL Fountain # (Auto) (0.11-0.59) K/uL Eos # (Auto) (0-0.5) K/uL Baso # (Auto) (0-0.2) K/uL Immature Gran # (Auto) (0.00-0.02) K/uL PT (9.0-12.0) Seconds INR (0.9-1.1) APTT (21.0-31.0) Seconds PTT Ratio VBG pH (7.36-7.41) VBG pCO2 (38-50) mmHg VBG pO2 mmHg VBG HCO3 mmol/L VBG O2 Saturation % VBG Base Excess mEq/L Barometric Pressure mm/Hg Sodium (136-145) mmol/L Potassium (3.5-5.1) mmol/L Chloride (98-107) mmol/L Carbon Dioxide (21-32) mmol/L Anion Gap (3-11) BUN (7-18) mg/dl Creatinine (0.6-1.2) mg/dl Est Cr Clr Drug Dosing ml/min Est GFR ( Amer) ml/min Est GFR (Non-Af Amer) ml/min BUN/Creatinine Ratio (10-20) Glucose (70-99) mg/dl Lactate (0.4-2.0) mmol/L Calcium (8.5-10.1) mg/dl Magnesium (1.8-2.4) mg/dl Total Bilirubin (0.2-1) mg/dl AST (15-37) U/L ALT (12-78) U/L Alkaline Phosphatase (45-117) U/L Ammonia (11-32) umol/L Troponin I (0-0.045) ng/ml Total Protein (6.4-8.2) gm/dl Albumin (3.4-5.0) gm/dl Globulin (2.5-4.0) gm/dl Albumin/Globulin Ratio (0.9-2) Procalcitonin (0-0.5) ng/ml Urine Color Yellow Urine Appearance Turbid A (Clear) Urine pH 6.0 (4.5-7.5) Ur Specific [place] 1.015 (1.000-1.030) Urine Protein 2+ H (Negative) Urine Glucose (UA) Negative (Negative) Urine Ketones Negative (Negative) Urine Blood 3+ H (Negative) Urine Nitrite Positive A (Negative) Urine Bilirubin Negative (Negative) Urine Urobilinogen Negative (Negative) Ur Leukocyte Esterase 3+ H (Negative) Urine WBC (Auto) >30 H (0-5) /hpf Urine RBC (Auto) >30 H (0-4) /hpf U Hyaline Cast (Auto) 0 (0-5) /lpf U Epithel Cells (Auto) 20-30 H (0-5) /lpf Urine Bacteria (Auto) Negative (Negative) Urine Yeast Not Reportable COVID-19 Eval Order SARS-CoV-2 (PCR) (Negative) Administered Medications Potassium Chloride/Sodium Chloride (Normal Saline W/20 Meq Kcl) 20 meq in 1,000 mls @ 75 mls/hr IV .[id number] ELAN Stop: 03/14/21 17:32 Last Admin: 02/12/21 18:31 Dose: 75 mls/hr Documented by: [id number] Discontinued Medications Ertapenem 500 mg/ Sodium (Chloride) 55 mls @ 110 mls/hr IV NOW ONE Stop: 02/12/21 12:44 Last Infusion: 02/12/21 14:02 Dose: 0 mls/hr Documented by: [id number] Admin: 02/12/21 13:32 Dose: 110 mls/hr Documented by: [id number] Daptomycin 500 mg/ Syringe 10 mls @ 5 mls/min IV NOW STA; Protocol Stop: 02/12/21 12:05 Last Admin: 02/12/21 13:32 Dose: 5 mls/min Documented by: [id number] Imaging Data Radiologist's Impression: Abdomen/Pelvis CT 02/12/21 11:59 CT SCAN OF THE ABDOMEN AND PELVIS WITHOUT CONTRAST CLINICAL HISTORY: AMS COMPARISON STUDY: January 24, 2021. TECHNIQUE: CT scan of the abdomen and pelvis was performed from the lung bases to the proximal femurs. Images are reviewed in the axial, sagittal, and coronal planes. IV contrast was not administered for this examination. A dose lowering technique was utilized adhering to the principles of ALARA. CT DOSE: 1304.62 mGycm FINDINGS: Lower chest: Small atelectasis at the right base. Evaluation is limited due to motion artifact and beam hardening artifact from patient's body habitus. Liver: Liver is normal in size with few stable calcifications within the right lobe of the liver, unchanged since prior. Gallbladder: Surgically absent. Spleen: Normal in size and attenuation. Pancreas: Unremarkable. Adrenal glands: Unremarkable. Kidneys: No evidence of hydronephrosis. Stable position of stents within bilateral renal pelvises. Distal aspect of the stents are seen within the urinary bladder which is decompressed with Fallon balloon. Bowel: Bowel loops are nondilated. Appendix shows normal morphology and gas filled. Moderate amount of stool is seen within distal aspect of the large bowel. Peritoneum: There is no intraperitoneal free air or abdominal ascites. Vasculature: Abdominal aorta is normal in caliber with scattered calcifications of its wall. Adenopathy: None. Pelvic viscera: Decompressed urinary bladder with Fallon balloon within its lumen. Uterus is surgically absent. Skeletal structures: Osteopenia. Multilevel degenerative changes of the spine. Severe degenerative changes of bilateral hip joints with significant deformities. IMPRESSION: 1. No acute intra-abdominal process. 2. Stable position of bilateral ureteral stents without evidence of hydronephrosis. Decompressed urinary bladder. 3. Nondilated loops of bowel. Normal appendix. 4. Atherosclerosis. 5. Severe deformities of bilateral hip joints as above. ACT 112: Negative or not required by law. The above report was generated using voice recognition software. It may contain grammatical, syntax or spelling errors. Electronically signed by: Karolina Patel DO 02/12/2021 1:46 PM Chest X-Ray 02/12/21 11:59 XR chest 1V portable HISTORY: SEPSIS COMPARISON: Chest 01/24/2021. FINDINGS: Slightly rotated study. Low lung volumes. No pneumothorax. No pleural effusions. The heart remains mildly enlarged. There is mild central pulmonary basilar congestion without overt edema. No new focal lung consolidations to suggest pneumonia. There is mild elevation of the right hemidiaphragm, unchanged. IMPRESSION: Mild central pulmonary vascular congestion without overt edema. This has slightly progressed. Stable cardiomegaly. ACT 112: Negative or not required by law. Electronically signed by: Mak Monteiro M.D. 02/12/2021 12:[address] 02/12/21 11:59 CT head/brain wo con CLINICAL HISTORY: 66 years-old Female with ams. Acutely altered mental status TECHNIQUE: Multiple axial CT images of the head were obtained without contrast. A dose lowering technique was utilized adhering to the principles of ALARA. CT DOSE: 941.65 mGycm COMPARISON: None. FINDINGS: Motion degraded exam. No acute intracranial hemorrhage, midline shift, intracranial mass, hydrocephalus, territorial ischemia or abnormal extra-axial collection. White matter hypodensities suggestive of chronic microvascular ischemic disease. Cerebral vascular calcifications. The calvarium is intact. Hyperostosis frontalis interna. Prior bilateral lens r epair. The paranasal sinuses, mastoid air cells, and middle ear cavities are clear. IMPRESSION: No acute intracranial abnormality. ACT 112: Negative or not required by law. The above report was generated using voice recognition software. It may contain grammatical, syntax or spelling errors. Electronically signed by: Harrison Vo M.D. 02/12/2021 1:17 PM Discharge Plan Visit Data Chief Complaint: Unresponsive ED Provider: Bari Nails Discharge Problem: Acute alteration in mental status, Urinary tract infection Patient Disposition: Admitted As Inpatient Condition: Good Discharge Instructions Interventions: ED Discharge Assessment Last Done: 02/12/21 16:54 Discharge Problem: Urinary tract infection Qualifiers: Urinary tract infection type: site unspecified Hematuria presence: without hematuria Qualified Code(s): N39.0 - Urinary tract infection, site not specified
[2021-02-12 12:44] LABS: Basophils # (auto) 0.05 K/uL (0-0.2); Basophils % (auto) 0.6 %; Eosinophils # (auto) 0.19 K/uL (0-0.5); Eosinophils % (auto) 2.1 %; Hematocrit (blood only) 32.9 % (37-47); Hemoglobin 10.6 g/dL (12.0-16.0); Immature Granulocytes # (auto) 0.03 K/uL (0.00-0.02); Immature Granulocytes % (auto) 0.3 %; Lymphocytes # (auto) 1.61 K/uL (1.2-3.4); Mean Corpuscular Hemoglobin 30.9 pg (25-34); Mean Corpuscular Hgb Conc 32.2 g/dL (32-36); Mean Corpuscular Volume 95.9 fL (80-100); Mean Platelet Volume 9.5 fL (7.4-10.4); Monocytes # (auto) 0.58 K/uL (0.11-0.59); Monocytes % (auto) 6.5 %; Neutrophils # (auto) 6.46 K/uL (1.4-6.5); Neutrophils % (auto) 72.5 %; Platelet Count 355 K/uL (130-400); RDW Coefficient of Variation 16.9 % (11.5-14.5); RDW Standard Deviation 59.4 fL (36.4-46.3); Red Blood Count 3.43 M/uL (4.2-5.4); White Blood Count 8.92 K/uL (4.8-10.8)
--- NOTE | 2021-02-12 12:53 | XRay Report ---
XR chest 1V portable HISTORY: SEPSIS COMPARISON: Chest 01/24/2021. FINDINGS: Slightly rotated study. Low lung volumes. No pneumothorax. No pleural effusions. The heart remains mildly enlarged. There is mild central pulmonary basilar congestion without overt edema. No n ew focal lung consolidations to suggest pneumonia. There is mild elevation of the right hemidiaphragm , unchanged. IMPRESSION: Mild central pulmonary vascular congestion without overt edema. This has slightly progressed. Stable cardiomegaly. ACT 112: Negative or not required by law. Electronically signed by: Mak Monteiro M.D. 02/12/2021 12:51 PM
[2021-02-12 12:57] LABS: INR 1.1 (0.9-1.1); Partial Thromboplastin Ratio 0.9; Partial Thromboplastin Time 24.5 Seconds (21.0-31.0); Prothrombin Time 10.9 Seconds (9.0-12.0)
[2021-02-12 13:07] LABS: Alanine Aminotransferase 25 U/L (12-78); Albumin Level 2.8 gm/dl (3.4-5.0); Aspartate Aminotransferase 23 U/L (15-37); BUN Creatinine Ratio 11.8 (10-20); Blood Urea Nitrogen 47 mg/dl (7-18); Carbon Dioxide 22 mmol/L (21-32); Chloride 110 mmol/L (98-107); Creatinine Clr Calc Pharmacy 18.9 ml/min; Est GFR (African American) 13.2 ml/min; Est GFR (Non-African American) 11.4 ml/min; Glucose 125 mg/dl (70-99); Magnesium 2.8 mg/dl (1.8-2.4); Potassium 4.1 mmol/L (3.5-5.1); Sodium 140 mmol/L (136-145)
[2021-02-12 13:11] LABS: Albumin Globulin Ratio 0.4 (0.9-2); Alkaline Phosphatase 129 U/L (45-117); Bilirubin,Total 0.5 mg/dl (0.2-1); Calcium 9.6 mg/dl (8.5-10.1); Globulin 6.8 gm/dl (2.5-4.0); Total Protein 9.6 gm/dl (6.4-8.2); Troponin I < 0.015 ng/ml (0-0.045)
--- NOTE | 2021-02-12 13:19 | CT Scan Report ---
CT head/brain wo con CLINICAL HISTORY: 66 years-old Female with ams. Acutely altered mental status TECHNIQUE: Multiple axial CT images of the head were obtained without contrast. A dose lowering tech nique was utilized adhering to the principles of ALARA. CT DOSE: 941.65 mGycm COMPARISON: None. FINDINGS: Motion degraded exam. No acute intracranial hemorrhage, midline shift, intracranial mass, hydrocephal us, territorial ischemia or abnormal extra-axial collection. White matter hypodensities suggestive of chronic microvascular ischemic disease. Cerebral vascular calcifications. The calvarium is intact. Hyperostosis frontalis interna. Prior bilateral lens repair. The paranasal s inuses, mastoid air cells, and middle ear cavities are clear. IMPRESSION: No acute intracranial abnormality. ACT 112: Negative or not required by law. The above report was generated using voice recognition software. It may contain grammatical, syntax o r spelling errors. Electronically signed by: Harrison Vo M.D. 02/12/2021 1:17 PM
[2021-02-12 13:43] LABS: Base Excess VBG -2.4 mEq/L; pH VBG 7.34 (7.36-7.41)
--- NOTE | 2021-02-12 13:47 | CT Scan Report ---
CT SCAN OF THE ABDOMEN AND PELVIS WITHOUT CONTRAST CLINICAL HISTORY: AMS COMPARISON STUDY: January 24, 2021. TECHNIQUE: CT scan of the abdomen and pelvis was performed from the lung bases to the proximal femurs . Images are reviewed in the axial, sagittal, and coronal planes. IV contrast was not administered fo r this examination. A dose lowering technique was utilized adhering to the principles of ALARA. CT DOSE: 1304.62 mGycm FINDINGS: Lower chest: Small atelectasis at the right base. Evaluation is limited due to motion artifact and be am hardening artifact from patient's body habitus. Liver: Liver is normal in size with few stable calcifications within the right lobe of the liver, unc hanged since prior. Gallbladder: Surgically absent. Spleen: Normal in size and attenuation. Pancreas: Unremarkable. Adrenal glands: Unremarkable. Kidneys: No evidence of hydronephrosis. Stable position of stents within bilateral renal pelvises. Di stal aspect of the stents are seen within the urinary bladder which is decompressed with Fallon balloo n. Bowel: Bowel loops are nondilated. Appendix shows normal morphology and gas filled. Moderate amount o f stool is seen within distal aspect of the large bowel. Peritoneum: There is no intraperitoneal free air or abdominal ascites. Vasculature: Abdominal aorta is normal in caliber with scattered calcifications of its wall. Adenopathy: None. Pelvic viscera: Decompressed urinary bladder with Fallon balloon within its lumen. Uterus is surgicall y absent. Skeletal structures: Osteopenia. Multilevel degenerative changes of the spine. Severe degenerative ch anges of bilateral hip joints with significant deformities. IMPRESSION: 1. No acute intra-abdominal process. 2. Stable position of bilateral ureteral stents without evidence of hydronephrosis. Decompressed uri nary bladder. 3. Nondilated loops of bowel. Normal appendix. 4. Atherosclerosis. 5. Severe deformities of bilateral hip joints as above. ACT 112: Negative or not required by law. The above report was generated using voice recognition software. It may contain grammatical, syntax o r spelling errors. Electronically signed by: Karolina Patel DO 02/12/2021 1:46 PM
--- NOTE | 2021-02-12 15:14 | History & Physical Report ---
Date of Service February 12, 2021 Assessment & Plan (1) Acute metabolic encephalopathy: Plan: Presents with lethargy, confusion, mild combativeness, with a history of presenting the exact same way numerous times in previous hospitalizations Typically is treated for UTI or bacteremia and has improvement in mental status. UA does appear abnormal and does have indwelling Fallon catheter and bilateral ureteral stents Is afebrile. She does also take multiple [employer] depressing medications to include baclofen, hydrocodone, tramadol which may also be contributing She has an acute kidney injury which is also likely contributing -Admit to PCU -Hold baclofen, hydrocodone, tramadol -Keep n.p.o. until more alert and awake and safely can eat -Maintenance IV fluids to help with acute kidney injury -Treating UTI as below -Continue to treat constipation (2) Acute kidney injury superimposed on CKD: Plan: Creatinine elevated above baseline upon admission at 3.9 with baseline being anywhere from 2-2.8 BUN is also elevated-likely dehydrated No casts on urinalysis She is making urine and Fallon catheter is in place, bilateral ureteral stents were just exchanged at last admission 2 weeks ago Continue IV fluids Follow BMP in the morning (3) Catheter-associated urinary tract infection: Plan: With a history of such including ESBL E. coli, MRSA, and Enterococcus -Start broad-spectrum antibiotics with daptomycin and meropenem based on previous sensitivities -Follow blood and urine cultures -We will need to exchange Fallon catheter-this has not yet been done -Of note, in the past she has thought to of become encephalopathic with the use of ertapenem-she did receive 1 dose of this in the ER but it was discontinued (4) Anemia: Plan: Hemoglobin fairly stable from previous at 10 Likely anemia of chronic kidney disease Hold home ferrous sulfate (5) Depression with anxiety: Plan: Continue home bupropion, BuSpar and Cymbalta once taking p.o. reliably (6) Diabetes mellitus type 2 in obese: Plan: Hold home meds Insulin sliding scale with NovoLog (7) Dyslipidemia: Plan: Not on medication for this (8) Chronic pain: Plan: Holding home baclofen, tramadol, hydrocodone as above Continue Cymbalta if taking p.o. reliably (9) Morbid obesity: Plan: BMI 44.7 (10) DVT prophylaxis: Plan: Heparin SQ Disposition-admit to PCU on observation Care discussed with her daughter/healthcare POA on the phone, Kymberly DNR/DNI History of Present Illness Chief Complaint: Confusion, unresponsiveness Primary Care Provider: Ángel Adrian This patient is a 66-year-old female with a history of recurrent UTIs with bilateral ureteral stents and chronic Fallon catheter, recurrent significant acute encephalopathy related to UTIs, CKD stage 3, morbid obesity, depression with anxiety, DM 2,?CVA, hyperlipidemia, constipation, chronic anemia, ambulatory dysfunction who was sent to the ER from [facility] with symptoms of unresponsiveness. I was unable to obtain any history from the patient as she continued to grown out loud and swat her hand at me. I spoke to her daughter on the phone who was unaware that the patient was even sent to the ER. She does report that when she talked to her mom 6 days ago, she started sounding confused, and daughter was told that her WBC count was elevated and that she was to be continued on IV antibiotics. She was discharged from this hospital about 10 days ago on IV daptomycin after admission for Enterococcus bacteremia. As per discharge summary, her daptomycin was to be completed on 02/07. In the ER here, the patient was confused as above, but vital signs were fairly normal, laboratory work-up was only significant for mild chronic anemia, and acute kidney injury with creatinine of 3.9 with baseline being 2.8. Troponin was negative, procalcitonin was negative, ammonia level was low, VBG was normal, and urinalysis was abnormal with packed WBCs, positive nitrite, and 20-30 epithelial cells. Her Covid test was negative, head CT showed no acute intracranial abnormality, chest x-ray showed mild pulmonary vascular congestion, and CT abdomen/pelvis without contrast showed no acute intra-abdominal process. She will be admitted for acute metabolic encephalopathy likely secondary to recurrent UTI as well as acute kidney injury. Allergies Allergy/AdvReac Type Severity Reaction Status Date / Time Penicillins Allergy Severe Anaphylaxis Verified 02/12/21 15:54 cefazolin [From Ancef] Allergy Unknown Unknown Verified 02/12/21 15:54 pregabalin Allergy Unknown Unknown Verified 02/12/21 15:54 tramadol Allergy Unknown Unknown Verified 02/12/21 15:54 ertapenem AdvReac Severe See comment Verified 02/12/21 15:54 oxycodone AdvReac Unknown Unknown Unverified 02/12/21 15:54 Home Medications Medication Instructions Recorded Confirmed Type acetaminophen 325 mg tablet 650 mg PO Q6 PRN MDD 3gm 05/23/18 02/12/21 History (Tylenol) cholecalciferol (vitamin D3) 125 5,000 unit PO QAM 09/25/19 02/12/21 History mcg (5,000 unit) tablet (Vitamin D3) alogliptin 25 mg tablet (Nesina) 25 mg PO QAM 06/17/20 02/12/21 History baclofen 10 mg tablet 10 mg PO TID 06/17/20 02/12/21 History multivitamin, stress formula 1 tab PO QAM 06/17/20 02/12/21 History (Stress Formula) bisacodyl 10 mg rectal suppository 10 mg ME DIRECTED PRN 07/20/20 02/12/21 History bupropion HCl 300 mg 24 hr tablet, 300 mg PO QAM 11/13/20 02/12/21 History extended release (Wellbutrin XL) ferrous sulfate 325 mg (65 mg 325 mg PO QAM 11/13/20 02/12/21 History iron) tablet (Iron (ferrous sulfate)) melatonin 5 mg tablet 5 mg PO HS 11/13/20 02/12/21 History sennosides 8.6 mg-docusate sodium 1 tab PO BID 11/13/20 02/12/21 History 50 mg tablet (Senokot-S) simethicone 125 mg capsule (Gas-X 125 mg PO BID PRN 11/13/20 02/12/21 History Extra Strength) buspirone 15 mg tablet 15 mg PO BID 11/30/20 02/12/21 History hydrocodone 5 mg-acetaminophen 325 1 tab PO BID 11/30/20 02/12/21 History mg tablet tramadol 50 mg tablet 50 mg PO BID PRN 11/30/20 02/12/21 History acetaminophen 500 mg tablet 1,000 mg PO Q6H PRN 12/03/20 02/12/21 History (Tylenol Extra Strength) duloxetine 60 mg capsule,delayed 60 mg PO QAM 12/03/20 02/12/21 History release (Cymbalta) D Mannose 350mg Capsule 1,050 mg PO BID 01/24/21 02/12/21 History famotidine 20 mg tablet (Pepcid) 20 mg PO BID 01/24/21 02/12/21 History gabapentin 400 mg capsule 800 mg PO TID 01/24/21 02/12/21 History (Neurontin) insulin aspart U-100 100 unit/mL See Rx Instructions .ROUTE .COMPLEX 01/24/21 02/12/21 History subcutaneous solution (Novolog U-100 Insulin aspart) vitamin B complex 1 tab PO QAM 01/24/21 02/12/21 History Past Med/Surg History Medical History Allergic rhinitis Anemia anemia of chronic disease per group home records. Most recent H/H WNL 11/24/20. Bone infection Bunion Chronic pain CKD (chronic kidney disease) stage 3, GFR 30-59 ml/min Acute on chronic kidney injury 06/2020. Constipation Depression with anxiety Dermatitis Diabetes mellitus type 2 in obese Most recent A1C 04/2020 8.3% Disorders of magnesium metabolism Review of 2019 records (most recent on file 05/21/20) show Mg WNL Dyslipidemia Extended spectrum beta lactamase (ESBL) resistance Generalized atherosclerosis GERD (gastroesophageal reflux disease) H/O: CVA (cerebrovascular accident) 2013 per records Hammer toe Headache History of COVID-19 05/2020> resolved per [facility] staff History of recurrent UTI (urinary tract infection) Hypokalemia K+ WNL on 11/24/20 labs Incontinence Indwelling Fallon catheter present Lesion of bladder Microscopic hematuria Morbid obesity Muscle spasm Osteomyelitis Overactive bladder Personal history of methicillin resistant Staphylococcus aureus Tinea unguium Ulcerative colitis Uropathy, obstructive Surgical History History of cataract surgery History of cystoscopy stent exchange: 05/05/20: MAC sedation at [facility] stent exchange: 08/17/20: MAC sedation at [facility] Hx of surgical procedure presence of urogenital implants Presence urogenital implant S/P cholecystectomy Family History Mother , age 79 of esophageal cancer Hypertension Father , in mid 60s of an [place] Myocardial infarction Social History Smoking Status: Former smoker Tobacco Type: Cigarettes Age Quit Using Tobacco: 48; Second Hand Exposure: No; Do You Dip or Chew Tobacco: No; Tobacco Cessation Education Requested by Patient: No Hx Alcohol Use: No Hx Substance Use: No Preferred Language: Estonian Communication Ability: Effective Visual Impairment: No Limitations Support Services Rep Required: No Beliefs That Will Affect Care: None marital status: Current Living Situation: Intermediate Current Living Situation Comment: [facility] Resident current occupational status: retired Other Information That Helps Us Care for You: No Feels Safe at Home: No Is there a partner from a previous relationship who is making you feel unsafe now?: No Any Concerns about Your Family Situation: No Would You Like to Speak to Someone About Your Situation: No Safety Concerns: Feels Safe At This Time Assistive Devices: Glasses Review of Systems Review of Systems: Unobtainable due to cognitive status Physical Exam Constitutional: WD/WN, vitals as above + morbidly obese Eyes: PERRL, conjunctivae normal, anicteric sclerae ENMT: external ear and nose normal, oropharynx normal Neck: trachea midline, no thyromegaly Respiratory: normal respiratory effort, lungs clear to auscultation Cardiovascular: RRR, no murmur, no edema Chest (Breasts): Chest: normal inspection of chest Gastrointestinal (Abdomen): normal bowel sounds, soft, nontender, no hepatosplenomegaly Musculoskeletal: Extremities: extremities normal to inspection; no cyanosis and no clubbing Skin: no rashes, warm and dry Neurologic: moves all extremities and awake; no focal motor deficits Speech / Cognition: + abnormal cognition Motor/Sensory: no tremor Cranial Nerves: normal facial strength and tongue midline Psychiatric: Orientation: + not alert (Lethargic but did wake up to sternal rub and loud verbal stimulus), + not oriented x 3 and + uncooperative Yelling out loud, not following commands, mildly combative Genitourinary: Fallon catheter in place with cloudy yellow urine Lymphatic: no lymphedema Results & Data Results & Data ([facility]) Vital Signs (Past 12 Hours) Vital Signs Temp Pulse Pulse Resp BP BP Pulse Ox 02/12/21 14:45 80 18 159/84 H 99 02/12/21 13:39 75 18 151/76 H 92 02/12/21 13:22 18 93 02/12/21 12:27 94 02/12/21 12:15 93 02/12/21 11:49 36.6 C 92 H 18 140/68 94 02/12/21 11:42 77 14 140/68 Laboratory Results 02/12/21 02/12/21 02/12/21 Range/Units 13:27 13:22 13:22 WBC (4.8-10.8) K/uL RBC (4.2-5.4) M/uL Hgb (12.0-16.0) g/dL Hct (37-47) % MCV (80-100) fL MCH (25-34) pg MCHC (32-36) g/dL RDW Std Deviation (36.4-46.3) fL RDW Coeff of Katina (11.5-14.5) % Plt Count (130-400) K/uL MPV (7.4-10.4) fL Immature Gran % (Auto) % Neut % (Auto) % Lymph % (Auto) % Dukes % (Auto) % Eos % (Auto) % Baso % (Auto) % Neut # (Auto) (1.4-6.5) K/uL Lymph # (Auto) (1.2-3.4) K/uL Dukes # (Auto) (0.11-0.59) K/uL Eos # (Auto) (0-0.5) K/uL Baso # (Auto) (0-0.2) K/uL Immature Gran # (Auto) (0.00-0.02) K/uL PT (9.0-12.0) Seconds INR (0.9-1.1) APTT (21.0-31.0) Seconds PTT Ratio VBG pH 7.34 L (7.36-7.41) VBG pCO2 44 (38-50) mmHg VBG pO2 60 mmHg VBG HCO3 23 mmol/L VBG O2 Saturation 90.0 % VBG Base Excess -2.4 mEq/L Barometric Pressure 729.7 mm/Hg Sodium (136-145) mmol/L Potassium (3.5-5.1) mmol/L Chloride (98-107) mmol/L Carbon Dioxide (21-32) mmol/L Anion Gap (3-11) BUN (7-18) mg/dl Creatinine (0.6-1.2) mg/dl Est Cr Clr Drug Dosing ml/min Est GFR ( Amer) ml/min Est GFR (Non-Af Amer) ml/min BUN/Creatinine Ratio (10-20) Glucose (70-99) mg/dl Lactate (0.4-2.0) mmol/L Calcium (8.5-10.1) mg/dl Magnesium (1.8-2.4) mg/dl Total Bilirubin (0.2-1) mg/dl AST (15-37) U/L ALT (12-78) U/L Alkaline Phosphatase (45-117) U/L Ammonia (11-32) umol/L Troponin I (0-0.045) ng/ml Total Protein (6.4-8.2) gm/dl Albumin (3.4-5.0) gm/dl Globulin (2.5-4.0) gm/dl Albumin/Globulin Ratio (0.9-2) Procalcitonin (0-0.5) ng/ml COVID-19 Eval Order Covid19 at [facility] SARS-CoV-2 (PCR) NEGATIVE (Negative) 02/12/21 02/12/21 02/12/21 Range/Units 12:29 12:29 12:29 WBC (4.8-10.8) K/uL RBC (4.2-5.4) M/uL Hgb (12.0-16.0) g/dL Hct (37-47) % MCV (80-100) fL MCH (25-34) pg MCHC (32-36) g/dL RDW Std Deviation (36.4-46.3) fL RDW Coeff of Katina (11.5-14.5) % Plt Count (130-400) K/uL MPV (7.4-10.4) fL Immature Gran % (Auto) % Neut % (Auto) % Lymph % (Auto) % Dukes % (Auto) % Eos % (Auto) % Baso % (Auto) % Neut # (Auto) (1.4-6.5) K/uL Lymph # (Auto) (1.2-3.4) K/uL Dukes # (Auto) (0.11-0.59) K/uL Eos # (Auto) (0-0.5) K/uL Baso # (Auto) (0-0.2) K/uL Immature Gran # (Auto) (0.00-0.02) K/uL PT (9.0-12.0) Seconds INR (0.9-1.1) APTT (21.0-31.0) Seconds PTT Ratio VBG pH (7.36-7.41) VBG pCO2 (38-50) mmHg VBG pO2 mmHg VBG HCO3 mmol/L VBG O2 Saturation % VBG Base Excess mEq/L Barometric Pressure mm/Hg Sodium (136-145) mmol/L Potassium (3.5-5.1) mmol/L Chloride (98-107) mmol/L Carbon Dioxide (21-32) mmol/L Anion Gap (3-11) BUN (7-18) mg/dl Creatinine (0.6-1.2) mg/dl Est Cr Clr Drug Dosing ml/min Est GFR ( Amer) ml/min Est GFR (Non-Af Amer) ml/min BUN/Creatinine Ratio (10-20) Glucose (70-99) mg/dl Lactate 0.8 (0.4-2.0) mmol/L Calcium (8.5-10.1) mg/dl Magnesium (1.8-2.4) mg/dl Total Bilirubin (0.2-1) mg/dl AST (15-37) U/L ALT (12-78) U/L Alkaline Phosphatase (45-117) U/L Ammonia 10.5 L (11-32) umol/L Troponin I (0-0.045) ng/ml Total Protein (6.4-8.2) gm/dl Albumin (3.4-5.0) gm/dl Globulin (2.5-4.0) gm/dl Albumin/Globulin Ratio (0.9-2) Procalcitonin 0.20 (0-0.5) ng/ml COVID-19 Eval Order SARS-CoV-2 (PCR) (Negative) 02/12/21 02/12/21 02/12/21 Range/Units 12:29 12:29 12:29 WBC 8.92 (4.8-10.8) K/uL RBC 3.43 L (4.2-5.4) M/uL Hgb 10.6 L (12.0-16.0) g/dL Hct 32.9 L (37-47) % MCV 95.9 (80-100) fL MCH 30.9 (25-34) pg MCHC 32.2 (32-36) g/dL RDW Std Deviation 59.4 H (36.4-46.3) fL RDW Coeff of Katina 16.9 H (11.5-14.5) % Plt Count 355 (130-400) K/uL MPV 9.5 (7.4-10.4) fL Immature Gran % (Auto) 0.3 % Neut % (Auto) 72.5 % Lymph % (Auto) 18.0 % Dukes % (Auto) 6.5 % Eos % (Auto) 2.1 % Baso % (Auto) 0.6 % Neut # (Auto) 6.46 (1.4-6.5) K/uL Lymph # (Auto) 1.61 (1.2-3.4) K/uL Dukes # (Auto) 0.58 (0.11-0.59) K/uL Eos # (Auto) 0.19 (0-0.5) K/uL Baso # (Auto) 0.05 (0-0.2) K/uL Immature Gran # (Auto) 0.03 H (0.00-0.02) K/uL PT 10.9 (9.0-12.0) Seconds INR 1.1 (0.9-1.1) APTT 24.5 (21.0-31.0) Seconds PTT Ratio 0.9 VBG pH (7.36-7.41) VBG pCO2 (38-50) mmHg VBG pO2 mmHg VBG HCO3 mmol/L VBG O2 Saturation % VBG Base Excess mEq/L Barometric Pressure mm/Hg Sodium 140 (136-145) mmol/L Potassium 4.1 (3.5-5.1) mmol/L Chloride 110 H (98-107) mmol/L Carbon Dioxide 22 (21-32) mmol/L Anion Gap 8.0 (3-11) BUN 47 H (7-18) mg/dl Creatinine 3.93 H (0.6-1.2) mg/dl Est Cr Clr Drug Dosing 18.9 ml/min Est GFR ( Amer) 13.2 ml/min Est GFR (Non-Af Amer) 11.4 ml/min BUN/Creatinine Ratio 11.8 (10-20) Glucose 125 H (70-99) mg/dl Lactate (0.4-2.0) mmol/L Calcium 9.6 (8.5-10.1) mg/dl Magnesium 2.8 H (1.8-2.4) mg/dl Total Bilirubin 0.5 (0.2-1) mg/dl AST 23 (15-37) U/L ALT 25 (12-78) U/L Alkaline Phosphatase 129 H (45-117) U/L Ammonia (11-32) umol/L Troponin I < 0.015 (0-0.045) ng/ml Total Protein 9.6 H (6.4-8.2) gm/dl Albumin 2.8 L (3.4-5.0) gm/dl Globulin 6.8 H (2.5-4.0) gm/dl Albumin/Globulin Ratio 0.4 L (0.9-2) Procalcitonin (0-0.5) ng/ml COVID-19 Eval Order SARS-CoV-2 (PCR) (Negative) Diagnostic Findings Abdomen/Pelvis CT 02/12/21 11:59 CT SCAN OF THE ABDOMEN AND PELVIS WITHOUT CONTRAST CLINICAL HISTORY: AMS COMPARISON STUDY: January 24, 2021. TECHNIQUE: CT scan of the abdomen and pelvis was performed from the lung bases to the proximal femurs. Images are reviewed in the axial, sagittal, and coronal planes. IV contrast was not administered for this examination. A dose lowering technique was utilized adhering to the principles of ALARA. CT DOSE: 1304.62 mGycm FINDINGS: Lower chest: Small atelectasis at the right base. Evaluation is limited due to motion artifact and beam hardening artifact from patient's body habitus. Liver: Liver is normal in size with few stable calcifications within the right lobe of the liver, unchanged since prior. Gallbladder: Surgically absent. Spleen: Normal in size and attenuation. Pancreas: Unremarkable. Adrenal glands: Unremarkable. Kidneys: No evidence of hydronephrosis. Stable position of stents within bilateral renal pelvises. Distal aspect of the stents are seen within the urinary bladder which is decompressed with Fallon balloon. Bowel: Bowel loops are nondilated. Appendix shows normal morphology and gas fi lled. Moderate amount of stool is seen within distal aspect of the large bowel. Peritoneum: There is no intraperitoneal free air or abdominal ascites. Vasculature: Abdominal aorta is normal in caliber with scattered calcifications of its wall. Adenopathy: None. Pelvic viscera: Decompressed urinary bladder with Fallon balloon within its lumen. Uterus is surgically absent. Skeletal structures: Osteopenia. Multilevel degenerative changes of the spine. Severe degenerative changes of bilateral hip joints with significant deformities. IMPRESSION: 1. No acute intra-abdominal process. 2. Stable position of bilateral ureteral stents without evidence of hydronephrosis. Decompressed urinary bladder. 3. Nondilated loops of bowel. Normal appendix. 4. Atherosclerosis. 5. Severe deformities of bilateral hip joints as above. ACT 112: Negative or not required by law. The above report was generated using voice recognition software. It may contain grammatical, syntax or spelling errors. Electronically signed by: Karolina Patel DO 02/12/2021 1:46 PM Chest X-Ray 02/12/21 11:59 XR chest 1V portable HISTORY: SEPSIS COMPARISON: Chest 01/24/2021. FINDINGS: Slightly rotated study. Low lung volumes. No pneumothorax. No pleural effusions. The heart remains mildly enlarged. There is mild central pulmonary basilar congestion without overt edema. No new focal lung consolidations to suggest pneumonia. There is mild elevation of the right hemidiaphragm, unchanged. IMPRESSION: Mild central pulmonary vascular congestion without overt edema. This has slightly progressed. Stable cardiomegaly. ACT 112: Negative or not required by law. Electronically signed by: Mak Monteiro M.D. 02/12/2021 12:[address] 02/12/21 11:59 CT head/brain wo con CLINICAL HISTORY: 66 years-old Female with ams. Acutely altered mental status TECHNIQUE: Multiple axial CT images of the head were obtained without contrast. A dose lowering technique was utilized adhering to the principles of ALARA. CT DOSE: 941.65 mGycm COMPARISON: None. FINDINGS: Motion degraded exam. No acute intracranial hemorrhage, midline shift, intracranial mass, hydrocephalus, territorial ischemia or abnormal extra-axial collection. White matter hypodensities suggestive of chronic microvascular ischemic disease. Cerebral vascular calcifications. The calvarium is intact. Hyperostosis frontalis interna. Prior bilateral lens repair. The paranasal sinuses, mastoid air cells, and middle ear cavities are clear. IMPRESSION: No acute intracranial abnormality. ACT 112: Negative or not required by law. The above report was generated using voice recognition software. It may contain grammatical, syntax or spelling errors. Electronically signed by: Harrison Vo M.D. 02/12/2021 1:17 PM ECG Additional Comments: EKG on 02/12/2021 at 1220 with normal sinus rhythm, diffuse minor nonspecific ST abnormality not changed from previous Code Status & VTE Plan Code Status DNR/DNI VTE Prophylaxis Plan VTE Prophylaxis will be ordered: Yes PG Care Time/CCT Total # of Minutes Spent Total Time Spent with Patient: Total time spent is greater than 50% in coordination of care (as documented) at patient's floor/unit and/or counseling patient: Coding Level of Care Code INT OBSERVATION CARE 70M LVL 3 Diagnoses Acute kidney injury superimposed on CKD N17.9; N18.9 Anemia D64.9 Anemia type: unspecified type Catheter-associated urinary tract infection T83.511A; N39.0 Encounter type: initial encounter Indwelling urinary catheter type: indwelling urethral catheter Depression with anxiety F41.8 Diabetes mellitus type 2 in obese E11.69; E66.9 DVT prophylaxis Z29.9 Dyslipidemia E78.5 Chronic pain G89.29 Morbid obesity E66.01 Acute metabolic encephalopathy G93.41 (1) Anemia Anemia type: unspecified type Qualified Code(s): D64.9 - Anemia, unspecified (2) Catheter-associated urinary tract infection Encounter type: initial encounter Indwelling urinary catheter type: indwelling urethral catheter Qualified Code(s): T83.511A - Infection and inflammatory reaction due to indwelling urethral catheter, initial encounter; N39.0 - Urinary tract infection, site not specified
[2021-02-12 15:42] LABS: Appearance Urine Turbid (Clear); Bacteria Urine Automated Negative (Negative); Bilirubin Urine Negative (Negative); Blood Urine 3+ (Negative); Color Urine Yellow; Epithelial Cell Urine Auto 20-30 /lpf (0-5); Glucose Urine UA Negative (Negative); Ketones Urine Negative (Negative); Leukocyte Esterase Urine 3+ (Negative); Nitrite Urine Positive (Negative); Protein Urine 2+ (Negative); RBC Urine Automated >30 /hpf (0-4); Specific Gravity Urine 1.015 (1.000-1.030); Urobilinogen Urine Negative (Negative); WBC Urine Automated >30 /hpf (0-5)
--- NOTE | 2021-02-12 15:44 | Electrocardiogram Report ---
Test Reason : Blood Pressure : / mmHG Vent. Rate : 080 BPM Atrial Rate : 081 BPM P-R Int : 164 ms QRS Dur : 096 ms QT Int : 388 ms P-R-T Axes : 050 053 064 degrees QTc Int : 447 ms Normal sinus rhythm Diffuse Minor Nonspecific ST abnormality When compared with ECG of 24-JAN-2021 08:35, No significant change was found Confirmed by Nitish Kenyon ([id number]) on 02/12/2021 3:43:48 PM Referred By: [facility] Confirmed By:Nitish Kenyon
[2021-02-12 16:05] LABS: Cast Urine Automated 0 /lpf (0-5)
[2021-02-12] MEDS ORDERED: MEROPENEM CONSULT ACITVE PRN (17:33)
[2021-02-12] MEDS ORDERED: bisacodyL 10 MG SUPP PR PRN (17:33)
[2021-02-12] MEDS ORDERED: ENOXAPARIN INJ 40 MG/0.4 ML SYR SQ SCH (17:33)
[2021-02-12] MEDS: NSS + 20MEQ KCL 20 MEQ/1,000 ML BAG IV SCH (18:31)
[2021-02-12] MEDS: busPIRone 15 MG TAB PO SCH (20:29)
[2021-02-12] MEDS: FAMOTIDINE 20 MG TAB PO SCH (20:29)
[2021-02-12] MEDS: DOCUSATE SODIUM/SENNA 50/8.6MG TAB PO SCH (20:29)
[2021-02-12] MEDS: BACLOFEN 10 MG TAB PO SCH (20:29)
[2021-02-12] MEDS: HEPARIN SOD 5,000 UNIT/0.5 ML VIAL SQ SCH (22:01)
[2021-02-12] MEDS ORDERED: GLUCOSE 40% GEL 15 GM TUBE PO PRN (22:14)
[2021-02-12] MEDS ORDERED: DEXTROSE 50% 50 ML SYRINGE IV PRN (22:14)
[2021-02-12] MEDS ORDERED: GLUCAGON FOR INJ 1 MG VIAL SQ PRN (22:14)
[2021-02-12] MEDS ORDERED: GLUCOSE 10 TABS/TUBE PO PRN (22:14)
[2021-02-12] MEDS ORDERED: CARBOHYDRATES FOR HYPOGLYCEMIA PO PRN (22:14)
[2021-02-12] MEDS ORDERED: Nursing to Pharmacy Communication SCH (22:30)
[2021-02-12] MEDS: INSULIN ASPART 100 UNITS/ML 3 ML PEN SC SCH (23:41)
[2021-02-13] MEDS: INSULIN ASPART 100 UNITS/ML 3 ML PEN SC SCH ×4 (05:24→23:05)
[2021-02-13] MEDS: HEPARIN SOD 5,000 UNIT/0.5 ML VIAL SQ SCH ×3 (05:25→22:06)
[2021-02-13] MEDS: NSS + 20MEQ KCL 20 MEQ/1,000 ML BAG IV SCH ×2 (05:26→20:02)
--- NOTE | 2021-02-13 08:13 | Hospitalist Progress Note ---
Date of Service February 13, 2021 Assessment & Plan (1) Acute metabolic encephalopathy: Plan: Presents with lethargy, confusion, mild combativeness, with a history of presenting the exact same way numerous times in previous hospitalizations Typically is treated for UTI or bacteremia and has improvement in mental status. UA does appear abnormal and does have indwelling Fallon catheter and bilateral ureteral stents Is afebrile. 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 to include baclofen, hydrocodone, tramadol which may also be contributing She has an acute kidney injury which is also likely contributing -Hold baclofen, hydrocodone, tramadol -Continue to treat constipation (2) Acute kidney injury superimposed on CKD: Plan: Creatinine elevated above baseline upon admission at 3.9 with baseline being anywhere from 2-2.8 BUN is also elevated-likely dehydrated No casts on urinalysis She is making urine and Fallon catheter is in place, bilateral ureteral stents were just exchanged at last admission 2 weeks ago Continue IV fluids Follow BMP in the morning (3) Catheter-associated urinary tract infection: Plan: With a history of such including ESBL E. coli, MRSA, and Enterococcus -Start broad-spectrum antibiotics with daptomycin and meropenem based on previous sensitivities -Follow blood and urine cultures -We will need to exchange Fallon catheter-this has not yet been done -Of note, in the past she has thought to of become encephalopathic with the use of ertapenem-she did receive 1 dose of this in the ER but it was discontinued (4) Anemia: Plan: Hemoglobin fairly stable from previous at 10 Likely anemia of chronic kidney disease Hold home ferrous sulfate (5) Depression with anxiety: Plan: Continue home bupropion, BuSpar and Cymbalta once taking p.o. reliably (6) Diabetes mellitus type 2 in obese: Plan: Hold home meds Insulin sliding scale with NovoLog (7) Dyslipidemia: Plan: Not on medication for this (8) Chronic pain: Plan: Holding home baclofen, tramadol, hydrocodone as above Continue Cymbalta if taking p.o. reliably (9) Morbid obesity: Plan: BMI 44.7 (10) DVT prophylaxis: Plan: Heparin SQ Disposition-admit to PCU on observation DNR/DNI Admission and Anticipated Discharge Date Admission Date: February 12, 2021 Subjective Patient here with encephalopathy with a history of drug-resistant urinary tract infections including Enterococcus and bilateral ureteral stents. Patient was eating tissues of her box this morning. When I saw the patient she was suspicious but after the visit she agreed to take oral medications. She continues on antibiotics. Family notes left-sided leg pain Doppler will be performed Review of Systems Review of Systems: Mild distress and fatigue no headache, no visual changes no speech or swallowing issues no chest pain, pressure or palpitations no shortness of breath, cough or wheezes no abdominal pain, nausea or vomiting, diarrhea or constipation no complaints at present of urinary pain no focal joint pain or swelling no back pain, CVA tenderness or radicular pain no bruising, bleeding or rashes no focal signs of weakness or numbness or altered sensation encephalopahty and delerium, suspicious at times Physical Exam Physical Exam: The patient appeared well nourished and normally developed. Vital signs as documented. Head exam is normocephalic atraumatic Neck is without JVD, thyromegaly, or carotid bruits. Lungs are clear to auscultation, no focal loss of breath sounds Cardiac exam, Rhythm is regular.. No murmurs, rubs or gallops. Abdominal exam reveals normal bowel sounds, soft non tender, no masses Extremities are trace edematous and both pedal pulses are present right leg not necessarily larger than left, rt is tender not warm or with chords Neurologic exam is alert and oriented, no focal loss of strength or sensation Skin is without bruises or rashes Psychologically is delerius and suspicious Results & Data Results & Data ([facility]) Vital Signs (Past 12 Hours) Vital Signs Temp Pulse Pulse Resp BP Pulse Ox 02/13/21 07:50 97.9 F 87 20 176/94 H 94 02/13/21 07:40 90 02/13/21 03:36 97.7 F 91 H 15 153/85 H 93 02/12/21 23:59 96 H 02/12/21 23:38 97.9 F 91 H 18 151/84 H 93 PG Care Time/CCT Total # of Minutes Spent Total Time Spent with Patient: Total time spent is greater than 50% in coordination of care (as documented) at patient's floor/unit and/or counseling patient: Coding Level of Care Code 24498 Subseq Hosp Care Lvl 3 Diagnoses Acute metabolic encephalopathy G93.41 Acute kidney injury superimposed on CKD N17.9; N18.9 Catheter-associated urinary tract infection T83.511A; N39.0 Encounter type: initial encounter Indwelling urinary catheter type: indwelling urethral catheter Anemia D64.9 Anemia type: unspecified type Depression with anxiety F41.8 Diabetes mellitus type 2 in obese E11.69; E66.9 Dyslipidemia E78.5 Chronic pain G89.29 Morbid obesity E66.01 DVT prophylaxis Z29.9 (1) Catheter-associated urinary tract infection Encounter type: initial encounter Indwelling urinary catheter type: indwelling urethral catheter Qualified Code(s): T83.511A - Infection and inflammatory reaction due to indwelling urethral catheter, initial encounter; N39.0 - Urinary tract infection, site not specified (2) Anemia Anemia type: unspecified type Qualified Code(s): D64.9 - Anemia, unspecified
[2021-02-13] MEDS: buPROPion XL 300 MG TABCR PO SCH (10:48)
[2021-02-13] MEDS: busPIRone 15 MG TAB PO SCH ×2 (10:48→21:16)
[2021-02-13] MEDS: BACLOFEN 10 MG TAB PO SCH ×2 (10:48→14:54)
[2021-02-13] MEDS: DOCUSATE SODIUM/SENNA 50/8.6MG TAB PO SCH ×2 (10:49→21:16)
[2021-02-13] MEDS: DULoxetine HCL 60 MG CAP PO SCH (10:49)
[2021-02-13] MEDS: FAMOTIDINE 20 MG TAB PO SCH ×2 (10:50→21:16)
[2021-02-13] MEDS: MEROPENEM 500 MG in SYRINGE 0 ML IV SCH (14:54)
--- NOTE | 2021-02-13 17:00 | Ultrasound Report ---
ULTRASOUND RIGHT LOWER EXTREMITY VENOUS CLINICAL HISTORY: Right calf pain. COMPARISON STUDY: No priors. TECHNIQUE: Real-time, grayscale, and color Doppler sonography of the deep veins of the right lower ex tremity was performed from the inguinal crease to the calf. Compression and augmentation were utilize d. FINDINGS: There is no sonographic evidence of deep venous thrombosis identified in the right lower ex tremity. The common femoral, superficial femoral, and popliteal veins are patent and normally dagmar sible. The greater saphenous vein and the profunda femoris vein at the junction with the common femor al vein are clear. The visualized calf veins are patent. IMPRESSION: There is no sonographic evidence of deep venous thrombosis identified in the right lower extremity. ACT 112: Negative or not required by law. Electronically signed by: Tl Jolley M.D. 02/13/2021 4:59 PM
[2021-02-14] MEDS: MEROPENEM 500 MG in SYRINGE 0 ML IV SCH (01:14)
[2021-02-14] MEDS: HEPARIN SOD 5,000 UNIT/0.5 ML VIAL SQ SCH ×3 (05:05→22:19)
--- NOTE | 2021-02-14 07:55 | Hospitalist Progress Note ---
Date of Service February 14, 2021 Assessment & Plan (1) Acute metabolic encephalopathy: Plan: Presents with lethargy, confusion, mild combativeness, with a history of presenting the exact same way numerous times in previous hospitalizations Typically is treated for UTI or bacteremia and has improvement in mental status. UA culture shows pseudomonas and Gram neg bacilli, indwelling Fallon catheter and bilateral ureteral stents, will consult urology to consider stent change at end of therapy Is afebrile. 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 to include baclofen, hydrocodone, tramadol which may also be contributing She has an acute kidney injury which is also likely contributing -Hold baclofen, hydrocodone, tramadol -Continue to treat constipation (2) Acute kidney injury superimposed on CKD: Plan: Creatinine elevated above baseline upon admission at 3.9 with baseline being anywhere from 2-2.8 BUN is also elevated-likely dehydrated No casts on urinalysis She is making urine and Fallon catheter is in place, bilateral ureteral stents were just exchanged at last admission 2 weeks ago Continue IV fluids Follow BMP in the morning (3) Catheter-associated urinary tract infection: Plan: urine culture is Gram neg bacilli and pseudomonas, will stop daptomycin and meropenem, per sensitivities will change to cefepime with pharmacy oversight -We will need to exchange Fallon catheter-this has not yet been done -Of note, in the past she has thought to of become encephalopathic with the use of ertapenem-she did receive 1 dose of this in the ER but it was discontinued urology consult to consider stent exchange (4) Anemia: Plan: Hemoglobin fairly stable from previous at 10 Likely anemia of chronic kidney disease Hold home ferrous sulfate (5) Depression with anxiety: Plan: Continue home bupropion, BuSpar and Cymbalta once taking p.o. reliably (6) Diabetes mellitus type 2 in obese: Plan: Hold home meds Insulin sliding scale with NovoLog (7) Dyslipidemia: Plan: Not on medication for this (8) Chronic pain: Plan: Holding home baclofen, tramadol, hydrocodone as above Continue Cymbalta if taking p.o. reliably (9) Morbid obesity: Plan: BMI 44.7 (10) DVT prophylaxis: Plan: Heparin SQ Disposition-improved will trasfer out of tele DNR/DNI Admission and Anticipated Discharge Date Admission Date: February 12, 2021 Subjective Patient here with encephalopathy with a history of drug-resistant urinary tract infections, she is found to have pseudomonas resistant to meripenem, and a pending GNR, changed to Cefipime for pseudomonas sensitive, previous leg pain with negative doppler, leg pain resolved 02/14. Pt is less confused but with unusual affect Review of Systems Review of Systems: Mild distress and fatigue no headache, no visual changes no speech or swallowing issues no chest pain, pressure or palpitations no shortness of breath, cough or wheezes no abdominal pain, nausea or vomiting, diarrhea or constipation no complaints at present of urinary pain previous c/o right leg pain now resolved no back pain, CVA tenderness or radicular pain no bruising, bleeding or rashes no focal signs of weakness or numbness or altered sensation encephalopathy clearing Physical Exam Physical Exam: The patient appeared well nourished and normally developed. Vital signs as documented. Head exam is normocephalic atraumatic Neck is without JVD, thyromegaly, or carotid bruits. Lungs are clear to auscultation, no focal loss of breath sounds Cardiac exam, Rhythm is regular.. No murmurs, rubs or gallops. Abdominal exam reveals normal bowel sounds, soft non tender, no masses Extremities are trace edematous and both pedal pulses are present right leg not necessarily larger than left, rt is tender not warm or with chords Neurologic exam is alert and oriented, no focal loss of strength or sensation Skin is without bruises or rashes Psychologically is delerius and suspicious Results & Data Results & Data ([facility]) Vital Signs (Past 12 Hours) Vital Signs Temp Pulse Pulse Resp BP Pulse Ox 02/14/21 07:20 98.6 F 80 18 106/77 97 02/14/21 07:19 72 02/14/21 03:05 98.2 F 78 15 134/76 97 02/14/21 00:06 98.8 F 87 14 108/86 95 02/13/21 23:49 81 02/13/21 20:01 98.1 F 84 16 131/79 93 PG Care Time/CCT Total # of Minutes Spent Total Time Spent with Patient: Total time spent is greater than 50% in coordination of care (as documented) at patient's floor/unit and/or counseling patient: Coding Level of Care Code 04682 Subseq Hosp Care Lvl 3 Diagnoses Acute metabolic encephalopathy G93.41 Acute kidney injury superimposed on CKD N17.9; N18.9 Catheter-associated urinary tract infection T83.511A; N39.0 Encounter type: initial encounter Indwelling urinary catheter type: indwelling urethral catheter Anemia D64.9 Anemia type: unspecified type Depression with anxiety F41.8 Diabetes mellitus type 2 in obese E11.69; E66.9 Dyslipidemia E78.5 Chronic pain G89.29 Morbid obesity E66.01 DVT prophylaxis Z29.9 (1) Catheter-associated urinary tract infection Encounter type: initial encounter Indwelling urinary catheter type: indwelling urethral catheter Qualified Code(s): T83.511A - Infection and inflammatory reaction due to indwelling urethral catheter, initial encounter; N39.0 - Urinary tract infection, site not specified (2) Anemia Anemia type: unspecified type Qualified Code(s): D64.9 - Anemia, unspecified
[2021-02-14] MEDS: DULoxetine HCL 60 MG CAP PO SCH (08:28)
[2021-02-14] MEDS: buPROPion XL 300 MG TABCR PO SCH (08:28)
[2021-02-14] MEDS: busPIRone 15 MG TAB PO SCH ×2 (08:28→22:19)
[2021-02-14] MEDS: NSS + 20MEQ KCL 20 MEQ/1,000 ML BAG IV SCH (08:29)
[2021-02-14] MEDS: FAMOTIDINE 20 MG TAB PO SCH ×2 (08:29→22:18)
[2021-02-14] MEDS: INSULIN ASPART 100 UNITS/ML 3 ML PEN SC SCH ×4 (08:37→21:15)
[2021-02-14] MEDS: DOCUSATE SODIUM/SENNA 50/8.6MG TAB PO SCH ×2 (08:37→22:18)
[2021-02-14 10:46] LABS: BUN Creatinine Ratio 12.5 (10-20); Calcium 9.2 mg/dl (8.5-10.1); Creatinine Clr Calc Pharmacy 22.8 ml/min; Est GFR (African American) 17.4 ml/min; Potassium 4.1 mmol/L (3.5-5.1)
--- NOTE | 2021-02-14 12:57 | Urology Consultation ---
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 Patient likely at this point chronically colonized with multidrug-resistant organisms. Recently had Pseudomonas. Patient developed severe delirium with episodes of UTI. Has bilateral stents and catheter in place due to chronic obstructive issues. Up to this point have been assisting greatly at controlling patient's more severe episodes of infection. Was recently changed. Agree with plans for resuscitation and supportive care. Agree with plans for broad-spectrum antibiotics. Frequent stent changes would be unlikely to change patient's acute illness and would have the risk of multiple procedures with anesthesia in a patient with multiple severe comorbidities. Nephrostomy tubes could be consideration but would need to be transferred to a facility with interventional radiology and would need to be arranged to have exchanges of these likely on a monthly basis. Patient's vitals and lab work do appear to be improving. Significant SOLEDAD has improved with hydration. Patient's most recent imaging was reviewed interpreted by myself. Indwelling catheters appear in good position. Agree with plans for maximal drainage and maintaining catheter. Would likely benefit from infectious disease outpatient management of her chronic colonization/chronic UTI issues with history of chronic obstruction treated by indwelling catheters. May need to consider options for antibiotic regimens and management. May need to consider rotating schedule for suppression antibiotics due to chronic colonization and multidrug-resistant organisms. Patient's complicated medical and surgical history is being summarized above. (2) Acute kidney injury superimposed on CKD: History of Present Illness Attending Physician: Rafy Eagle MD History of Present Illness Consultation for acutely ill and septic patient with UTI/Pyelo, discomfort, and ill feelings. Extremely well-known patient with chronic colonization/chronic UTI issues. Has indwelling ureteral and Fallon catheters due to chronic obstructive issues.. Patient has chronic incontinence issues with overflow. Often becomes combative and agitated with acute exacerbation of patient's chronic infection issues. Patient has stent exchanges every 2 to 3 months. Most recently had them changed less than a month ago. Patient developed sudden onset of pain into flank going down and radiating into groin and back in waves comes and goes. Often has these issues with illness and infection. Can be severe at times. Altered mental status due to acute illness. Patient has baseline issues with memory and dementia Discussed and reviewed patient's personal medical, surgical, social, and family history for any history of issues, infections, and disease. Also, discussed patient's medical/surgery history especially related to any history of urinary issues or stone disease. Patient is undergoing intense/critical management for acute illness and is being admitted to undergo supportive care and resuscitation Hospitalist/ICU team has admitted and is undergoing observation with broad spectrum IV antibiotics. Allergies Allergy/AdvReac Type Severity Reaction Status Date / Time Penicillins Allergy Severe Anaphylaxis Verified 02/12/21 15:54 cefazolin [From Anc] Allergy Unknown Unknown Verified 02/12/21 15:54 pregabalin Allergy Unknown Unknown Verified 02/12/21 15:54 tramadol Allergy Unknown Unknown Verified 02/12/21 15:54 ertapenem AdvReac Severe See comment Verified 02/12/21 15:54 oxycodone AdvReac Unknown Unknown Unverified 02/12/21 15:54 Home Medications Medication Instructions Recorded Confirmed Type acetaminophen 325 mg tablet 650 mg PO Q6 PRN MDD 3gm 05/23/18 02/12/21 History (Tylenol) cholecalciferol (vitamin D3) 125 5,000 unit PO QAM 09/25/19 02/12/21 History mcg (5,000 unit) tablet (Vitamin D3) alogliptin 25 mg tablet (Nesina) 25 mg PO QAM 06/17/20 02/12/21 History baclofen 10 mg tablet 10 mg PO TID 06/17/20 02/12/21 History multivitamin, stress formula 1 tab PO QAM 06/17/20 02/12/21 History (Stress Formula) bisacodyl 10 mg rectal suppository 10 mg GA DIRECTED PRN 07/20/20 02/12/21 History bupropion HCl 300 mg 24 hr tablet, 300 mg PO QAM 11/13/20 02/12/21 History extended release (Wellbutrin XL) ferrous sulfate 325 mg (65 mg 325 mg PO QAM 11/13/20 02/12/21 History iron) tablet (Iron (ferrous sulfate)) melatonin 5 mg tablet 5 mg PO HS 11/13/20 02/12/21 History sennosides 8.6 mg-docusate sodium 1 tab PO BID 11/13/20 02/12/21 History 50 mg tablet (Senokot-S) simethicone 125 mg capsule (Gas-X 125 mg PO BID PRN 11/13/20 02/12/21 History Extra Strength) buspirone 15 mg tablet 15 mg PO BID 11/30/20 02/12/21 History hydrocodone 5 mg-acetaminophen 325 1 tab PO BID 11/30/20 02/12/21 History mg tablet tramadol 50 mg tablet 50 mg PO BID PRN 11/30/20 02/12/21 History acetaminophen 500 mg tablet 1,000 mg PO Q6H PRN 12/03/20 02/12/21 History (Tylenol Extra Strength) duloxetine 60 mg capsule,delayed 60 mg PO QAM 12/03/20 02/12/21 History release (Cymbalta) D [place] 350mg Capsule 1,050 mg PO BID 01/24/21 02/12/21 History famotidine 20 mg tablet (Pepcid) 20 mg PO BID 01/24/21 02/12/21 History gabapentin 400 mg capsule 800 mg PO TID 01/24/21 02/12/21 History (Neurontin) insulin aspart U-100 100 unit/mL See Rx Instructions .ROUTE .COMPLEX 01/24/21 02/12/21 History subcutaneous solution (Novolog U-100 Insulin aspart) vitamin B complex 1 tab PO QAM 01/24/21 02/12/21 History Patient History Medical History Allergic rhinitis Anemia anemia of chronic disease per [facility] records. Most recent H/H WNL 11/24/20. Bone infection Bunion Chronic pain CKD (chronic kidney disease) stage 3, GFR 30-59 ml/min Acute on chronic kidney injury 06/2020. Constipation Depression with anxiety Dermatitis Diabetes mellitus type 2 in obese Most recent A1C 04/2020 8.3% Disorders of magnesium metabolism Review of 2019 records (most recent on file 05/21/20) show Mg WNL Dyslipidemia Extended spectrum beta lactamase (ESBL) resistance Generalized atherosclerosis GERD (gastroesophageal reflux disease) H/O: CVA (cerebrovascular accident) 2013 per records Hammer toe Headache History of COVID-19 05/2020> resolved per [facility] staff History of recurrent UTI (urinary tract infection) Hypokalemia K+ WNL on 11/24/20 labs Incontinence Indwelling Fallon catheter present Lesion of bladder Microscopic hematuria Morbid obesity Muscle spasm Osteomyelitis Overactive bladder Personal history of methicillin resistant Staphylococcus aureus Tinea unguium Ulcerative colitis Uropathy, obstructive Surgical History History of cataract surgery History of cystoscopy stent exchange: 05/05/20: MAC sedation at [facility] stent exchange: 08/17/20: MAC sedation at [facility] Hx of surgical procedure presence of urogenital implants Presence urogenital implant S/P cholecystectomy Family History Mother , age 79 of esophageal cancer Hypertension Father , in mid 60s of an [place] Myocardial infarction Social History Smoking Status: Former smoker Tobacco Type: Cigarettes Age Quit Using Tobacco: 48; Second Hand Exposure: No; Do You Dip or Chew Tobacco: No; Tobacco Cessation Education Requested by Patient: No Hx Alcohol Use: No Hx Substance Use: No Preferred Language: Bermudian Communication Ability: Effective Visual Impairment: No Limitations Commercial Specialist Required: No Beliefs That Will Affect Care: None marital status: Current Living Situation: Care Home Current Living Situation Comment: [facility] Resident current occupational status: retired Other Information That Helps Us Care for You: No Feels Safe at Home: No Is there a partner from a previous relationship who is making you feel unsafe now?: No Any Concerns about Your Family Situation: No Would You Like to Speak to Someone About Your Situation: No Safety Concerns: Feels Safe At This Time Assistive Devices: Glasses Review of Systems Review of Systems: All systems reviewed & are unremarkable except as noted in HPI & below Limited due to patient illness Physical Exam Physical Exam: General: Acutely ill. Undergoing resuscitative care and supportive management for acute exacerbation of chronic severe infection with multidrug resistant organisms HEENT: Normocephalic Atraumatic. Inspection normal. Cranial Nerves 2-12 Grossly intact. Nares are clear. Neck is supple. Normal inspection of face. Normal inspection of neck. Neurologic: No deficits on inspection. Baseline for motor function and sensory. Psychologic: Anxious, acute delirium secondary to illness. Respiratory: Mild labored. No use of accessory muscles. No severe dyspnea. Cardiovascular: tachycardia Skin: [place] and Dry. No rashes or visible lesions. Febrile Extremities: Moving without issues. No motor deficits on inspection Lymphatics: Moderate edema Abdomen: Morbidly obese. distended. No rebound or guarding. Results & Data ([facility]) Vital Signs (Past 12 Hours) Vital Signs Temp Pulse Pulse Resp BP Pulse Ox 02/14/21 10:18 36.6 C 80 22 116/90 98 02/14/21 07:20 37.0 C 80 18 106/77 97 02/14/21 07:19 72 02/14/21 03:05 36.8 C 78 15 134/76 97 PG Care Time/CCT Total # of Minutes Spent Total Time Spent with Patient: Total time spent is greater than 50% in coordination of care (as documented) at patient's floor/unit and/or counseling patient: Coding Level of Care Code 63184 Inpt Consult Level 5 Diagnoses Acute metabolic encephalopathy G93.41 Acute kidney injury superimposed on CKD N17.9; N18.9
[2021-02-14] MEDS ORDERED: CEFEPIME CONSULT ACTIVE PRN (13:18)
[2021-02-14] MEDS ORDERED: CEFEPIME 1,000 MG in SYRINGE 0 ML IV SCH (14:00)
[2021-02-14] MEDS ORDERED: DAPTOmycin 500 MG in SYRINGE 0 ML IV SCH (14:00)
[2021-02-14] MEDS ORDERED: LIDOCAINE VISCOUS 2% SOLN 60 ML, diphenhydrAMINE Syrup 150 MG, ALUMINUM/MAGNESIUM SUSP ... PO PRN (16:16)
[2021-02-14] MEDS: MELATONIN 3 MG TAB PO SCH (22:19)
[2021-02-15] MEDS: HEPARIN SOD 5,000 UNIT/0.5 ML VIAL SQ SCH ×3 (05:35→21:08)
[2021-02-15 09:38] LABS: Basophils # (auto) 0.05 K/uL (0-0.2); Basophils % (auto) 0.6 %; Eosinophils # (auto) 0.27 K/uL (0-0.5); Hemoglobin 10.6 g/dL (12.0-16.0); Immature Granulocytes # (auto) 0.04 K/uL (0.00-0.02); Immature Granulocytes % (auto) 0.4 %; Lymphocytes # (auto) 2.15 K/uL (1.2-3.4); Lymphocytes % (auto) 24.1 %; Mean Corpuscular Hemoglobin 30.3 pg (25-34); Mean Corpuscular Hgb Conc 32.1 g/dL (32-36); Mean Corpuscular Volume 94.3 fL (80-100); Mean Platelet Volume 9.2 fL (7.4-10.4); Monocytes # (auto) 0.39 K/uL (0.11-0.59); Monocytes % (auto) 4.4 %; Neutrophils # (auto) 6.03 K/uL (1.4-6.5); Neutrophils % (auto) 67.5 %; Platelet Count 292 K/uL (130-400); RDW Coefficient of Variation 16.7 % (11.5-14.5); RDW Standard Deviation 57.9 fL (36.4-46.3); White Blood Count 8.93 K/uL (4.8-10.8)
[2021-02-15] MEDS: FAMOTIDINE 20 MG TAB PO SCH ×2 (10:01→21:16)
[2021-02-15] MEDS: DULoxetine HCL 60 MG CAP PO SCH (10:01)
[2021-02-15 10:02] LABS: BUN Creatinine Ratio 11.7 (10-20); Calcium 9.3 mg/dl (8.5-10.1); Creatinine Clr Calc Pharmacy 24.6 ml/min; Est GFR (Non-African American) 16.4 ml/min; Potassium 3.7 mmol/L (3.5-5.1)
[2021-02-15] MEDS: buPROPion XL 300 MG TABCR PO SCH (10:02)
[2021-02-15] MEDS: DOCUSATE SODIUM/SENNA 50/8.6MG TAB PO SCH ×2 (10:02→21:06)
[2021-02-15] MEDS: busPIRone 15 MG TAB PO SCH ×2 (10:02→21:07)
[2021-02-15] MEDS: INSULIN ASPART 100 UNITS/ML 3 ML PEN SC SCH ×4 (11:02→21:16)
[2021-02-15] MEDS: CEFEPIME 2,000 MG in SYRINGE 0 ML IV SCH (14:58)
--- NOTE | 2021-02-15 17:37 | Hospitalist Progress Note ---
Date of Service February 15, 2021 Assessment & Plan (1) Acute metabolic encephalopathy: Plan: Improving nicely. Likely related to infection, also could have a component of polypharmacy. (2) Acute kidney injury superimposed on CKD: Plan: Creatinine elevated above baseline upon admission at 3.9 with baseline being anywhere from 2-2.8now down to 2.9 (3) Catheter-associated urinary tract infection: Plan: Previously had Enterococcus bacteremia, now has Pseudomonas and ESBL E. coli. Pseudomonas is sensitive to cefepime, which she is on, the E. coli is resistant to this. She was previously on meropenem, which the E. coli was sensitive to, but given her kidney disease, penicillin allergy, and resistance patterns, the treatment for both bacteria raises significant risk of ADRs, renal issues, or simply selecting for even more resistant bacteria in the future. Given that she is not septic, given that she is overall stable, and given that she expresses a good understanding of this plan on discussionwe will treat for the Pseudomonas, and for now assume the ESBL E. coli to potentially just be colonization. Should she show any new signs or symptoms of infection, we will resume meropenem in addition to the cefepime, but otherwise follow CBC, pro calcitonin, and repeat culture. Fortunately blood cultures are negative (4) Anemia: Plan: Hemoglobin fairly stable from previous Likely anemia of chronic kidney disease (5) Depression with anxiety: Plan: Continue home bupropion, BuSpar and Cymbalta (6) Diabetes mellitus type 2 in obese: Plan: Sugars have overall been reasonable (7) Dyslipidemia: Plan: Not on medication for this (8) Chronic pain: Plan: Holding home baclofen, tramadol, hydrocodone as above Continue Cymbalta I do question if some of her encephalopathy could be toxic encephalopathy from polypharmacy. Right now she is not showing much as far as uncontrolled pain, will try to minimize sedating meds as she tolerates. (9) Morbid obesity: Plan: BMI 44.7 (10) DVT prophylaxis: Plan: Heparin SQ Dispoimproving, await follow-up with above plan of treatment, anticipate return to [facility] at discharge DNR/DNI Admission and Anticipated Discharge Date Admission Date: February 14, 2021 Subjective Notes that overall she is feeling better. No new complaints or symptoms. Discussed new findings on urine culture of 2 different bacteria. Patient expressed good understanding. Review of Systems Review of Systems: All systems reviewed & are unremarkable except as noted in HPI & below Physical Exam Physical Exam: General she is awake and alert pleasant no distress. HEENT normocephalic atraumatic mucous membranes moist. Breathing unlabored no accessory muscle use good effort. Skin shows no rashes no pallor or icterus. Neuro without focal deficits. Results & Data Results & Data ([facility]) Vital Signs (Past 12 Hours) Vital Signs Temp Pulse Resp BP Pulse Ox 02/15/21 16:33 98.4 F 94 H 18 133/87 97 02/15/21 07:54 98.2 F 83 16 126/79 97 PG Care Time/CCT Total # of Minutes Spent Total Time Spent with Patient: Total time spent is greater than 50% in coordination of care (as documented) at patient's floor/unit and/or counseling patient: Coding Level of Care Code 12319 Subseq Hosp Care Lvl 3 Diagnoses Acute metabolic encephalopathy G93.41 Acute kidney injury superimposed on CKD N17.9; N18.9 Catheter-associated urinary tract infection T83.511A; N39.0 Encounter type: initial encounter Indwelling urinary catheter type: indwelling urethral catheter Anemia D64.9 Anemia type: unspecified type Depression with anxiety F41.8 Diabetes mellitus type 2 in obese E11.69; E66.9 Dyslipidemia E78.5 Chronic pain G89.29 Morbid obesity E66.01 DVT prophylaxis Z29.9 (1) Catheter-associated urinary tract infection Encounter type: initial encounter Indwelling urinary catheter type: indwelling urethral catheter Qualified Code(s): T83.511A - Infection and inflammatory reaction due to indwelling urethral catheter, initial encounter; N39.0 - Urinary tract infection, site not specified (2) Anemia Anemia type: unspecified type Qualified Code(s): D64.9 - Anemia, unspecified
[2021-02-15] MEDS: MELATONIN 3 MG TAB PO SCH (21:07)
[2021-02-16] MEDS: HEPARIN SOD 5,000 UNIT/0.5 ML VIAL SQ SCH ×3 (06:03→22:50)
[2021-02-16 06:31] LABS: Basophils # (auto) 0.04 K/uL (0-0.2); Basophils % (auto) 0.4 %; Eosinophils # (auto) 0.25 K/uL (0-0.5); Eosinophils % (auto) 2.5 %; Hematocrit (blood only) 32.4 % (37-47); Hemoglobin 10.5 g/dL (12.0-16.0); Immature Granulocytes # (auto) 0.04 K/uL (0.00-0.02); Immature Granulocytes % (auto) 0.4 %; Lymphocytes # (auto) 2.79 K/uL (1.2-3.4); Lymphocytes % (auto) 28.1 %; Mean Corpuscular Hemoglobin 30.4 pg (25-34); Mean Corpuscular Hgb Conc 32.4 g/dL (32-36); Mean Corpuscular Volume 93.9 fL (80-100); Mean Platelet Volume 9.5 fL (7.4-10.4); Monocytes # (auto) 0.77 K/uL (0.11-0.59); Monocytes % (auto) 7.8 %; Neutrophils # (auto) 6.03 K/uL (1.4-6.5); Neutrophils % (auto) 60.8 %; Platelet Count 335 K/uL (130-400); RDW Coefficient of Variation 16.7 % (11.5-14.5); Red Blood Count 3.45 M/uL (4.2-5.4); White Blood Count 9.92 K/uL (4.8-10.8)
[2021-02-16 06:56] LABS: BUN Creatinine Ratio 12.9 (10-20); Calcium 9.8 mg/dl (8.5-10.1); Creatinine Clr Calc Pharmacy 24.7 ml/min; Est GFR (Non-African American) 16.4 ml/min; Potassium 4.1 mmol/L (3.5-5.1)
[2021-02-16] MEDS: INSULIN ASPART 100 UNITS/ML 3 ML PEN SC SCH ×4 (08:30→22:36)
[2021-02-16] MEDS: DULoxetine HCL 60 MG CAP PO SCH (08:36)
[2021-02-16] MEDS: buPROPion XL 300 MG TABCR PO SCH (08:36)
[2021-02-16] MEDS: busPIRone 15 MG TAB PO SCH ×2 (08:36→22:32)
[2021-02-16] MEDS: DOCUSATE SODIUM/SENNA 50/8.6MG TAB PO SCH ×2 (08:37→22:31)
[2021-02-16] MEDS: FAMOTIDINE 20 MG TAB PO SCH ×2 (08:39→22:50)
[2021-02-16] MEDS: ONDANSETRON INJ 2 MG/ML 2 ML VIAL IV PRN (12:54)
[2021-02-16] MEDS: CEFEPIME 2,000 MG in SYRINGE 0 ML IV SCH (14:19)
--- NOTE | 2021-02-16 19:32 | Hospitalist Progress Note ---
Date of Service February 16, 2021 Assessment & Plan (1) Acute metabolic encephalopathy: Plan: Improving nicely. Likely related to infection, also could have a component of polypharmacy. Given concern on polypharmacy, and how well she seems to be doing right now, would anticipate discharging her on her current med listfairly pared down from what she was on prior. (2) Acute kidney injury superimposed on CKD: Plan: Creatinine elevated above baseline upon admission at 3.9 with baseline being anywhere from 2-2.8currently at 2.9 (3) Catheter-associated urinary tract infection: Plan: Previously had Enterococcus bacteremia, now has Pseudomonas and ESBL E. coli. Pseudomonas is sensitive to cefepime, which she is on, the E. coli is resistant to this. She was previously on meropenem, which the E. coli was sensitive to, but given her kidney disease, penicillin allergy, and resistance patterns, the treatment for both bacteria raises significant risk of ADRs, renal issues, or simply selecting for even more resistant bacteria in the future. Given that she is not septic, given that she is overall stable, and given that she expresses a good understanding of this plan on discussionwe will continue to treat for the Pseudomonas, and for now assume the ESBL E. coli to potentially just be colonization. Should she show any new signs or symptoms of infection, we will resume meropenem in addition to the cefepime, but otherwise continue to follow CBC, pro calcitonin, and repeat culture. Fortunately blood cultures are negati ve (4) Anemia: Plan: Hemoglobin fairly stable from previous Likely anemia of chronic kidney disease (5) Depression with anxiety: Plan: Continue home bupropion, BuSpar and Cymbalta (6) Diabetes mellitus type 2 in obese: Plan: Sugars have overall remained adequate (7) Dyslipidemia: Plan: Not on medication for this (8) Chronic pain: Plan: Holding home baclofen, tramadol, hydrocodone as above Continue Cymbalta I do question if some of her encephalopathy could be toxic encephalopathy from polypharmacy. Right now she is not showing much as far as uncontrolled pain, will try to minimize sedating meds as she tolerates. See above (9) Morbid obesity: Plan: BMI 44.7 (10) DVT prophylaxis: Plan: Heparin SQ Dispoimproving, await follow-up with above plan of treatment, anticipate return to [facility] at discharge DNR/DNI Admission and Anticipated Discharge Date Admission Date: February 14, 2021 Subjective Biggest complaint is diarrheaalthough probably only about twice a daybut her butt is getting very sore. Otherwise no new complaints. No abdominal pain. Physical Exam Physical Exam: General she is awake and alert pleasant no distress. HEENT normocephalic atraumatic mucous membranes moist. Breathing unlabored no accessory muscle use good effort. Skin shows no rashes no pallor or icterus. Neuro without focal deficits. Results & Data Results & Data ([facility]) Vital Signs (Past 12 Hours) Vital Signs Temp Pulse Resp BP BP Pulse Ox 02/16/21 15:35 98.1 F 94 H 17 90/63 L 93 02/16/21 08:30 97.9 F 86 17 105/72 96 PG Care Time/CCT Total # of Minutes Spent Total Time Spent with Patient: Total time spent is greater than 50% in coordination of care (as documented) at patient's floor/unit and/or counseling patient: Coding Level of Care Code 79674 Subseq Hosp Care Lvl 3 Diagnoses Acute metabolic encephalopathy G93.41 Acute kidney injury superimposed on CKD N17.9; N18.9 Catheter-associated urinary tract infection T83.511A; N39.0 Encounter type: initial encounter Indwelling urinary catheter type: indwelling urethral catheter Anemia D64.9 Anemia type: unspecified type Depression with anxiety F41.8 Diabetes mellitus type 2 in obese E11.69; E66.9 Dyslipidemia E78.5 Chronic pain G89.29 Morbid obesity E66.01 DVT prophylaxis Z29.9 (1) Catheter-associated urinary tract infection Encounter type: initial encounter Indwelling urinary catheter type: indwelling urethral catheter Qualified Code(s): T83.511A - Infection and inflammatory reaction due to indwelling urethral catheter, initial encounter; N39.0 - Urinary tract infection, site not specified (2) Anemia Anemia type: unspecified type Qualified Code(s): D64.9 - Anemia, unspecified
[2021-02-16] MEDS: MELATONIN 3 MG TAB PO SCH (22:32)
[2021-02-16] MEDS: CHOLESTYRAMINE LIGHT 4 GM PKT PO SCH (22:56)
[2021-02-17] MEDS: HEPARIN SOD 5,000 UNIT/0.5 ML VIAL SQ SCH ×2 (06:16→13:31)
[2021-02-17 07:25] LABS: Basophils # (auto) 0.04 K/uL (0-0.2); Basophils % (auto) 0.4 %; Eosinophils # (auto) 0.38 K/uL (0-0.5); Hematocrit (blood only) 31.3 % (37-47); Hemoglobin 10.2 g/dL (12.0-16.0); Immature Granulocytes # (auto) 0.04 K/uL (0.00-0.02); Immature Granulocytes % (auto) 0.4 %; Lymphocytes # (auto) 2.59 K/uL (1.2-3.4); Lymphocytes % (auto) 27.5 %; Mean Corpuscular Hemoglobin 30.4 pg (25-34); Mean Corpuscular Hgb Conc 32.6 g/dL (32-36); Mean Corpuscular Volume 93.4 fL (80-100); Mean Platelet Volume 9.3 fL (7.4-10.4); Monocytes # (auto) 0.73 K/uL (0.11-0.59); Monocytes % (auto) 7.7 %; Neutrophils # (auto) 5.65 K/uL (1.4-6.5); Platelet Count 290 K/uL (130-400); RDW Coefficient of Variation 16.9 % (11.5-14.5); RDW Standard Deviation 57.8 fL (36.4-46.3); Red Blood Count 3.35 M/uL (4.2-5.4); White Blood Count 9.43 K/uL (4.8-10.8)
[2021-02-17] MEDS: ONDANSETRON INJ 2 MG/ML 2 ML VIAL IV PRN (07:47)
[2021-02-17] MEDS: CHOLESTYRAMINE LIGHT 4 GM PKT PO SCH (07:49)
[2021-02-17] MEDS: LACTOBACILLUS ACIDOPHILUS 1 GM PACK PO SCH ×2 (07:49→12:10)
[2021-02-17 08:02] LABS: BUN Creatinine Ratio 13.6 (10-20); Calcium 9.3 mg/dl (8.5-10.1); Creatinine Clr Calc Pharmacy 25.1 ml/min; Est GFR (African American) 19.4 ml/min; Est GFR (Non-African American) 16.8 ml/min
[2021-02-17] MEDS: buPROPion XL 300 MG TABCR PO SCH (09:08)
[2021-02-17] MEDS: busPIRone 15 MG TAB PO SCH (09:09)
[2021-02-17] MEDS: DULoxetine HCL 60 MG CAP PO SCH (09:09)
[2021-02-17] MEDS: DOCUSATE SODIUM/SENNA 50/8.6MG TAB PO SCH (09:09)
[2021-02-17] MEDS: INSULIN ASPART 100 UNITS/ML 3 ML PEN SC SCH ×2 (09:10→12:22)
[2021-02-17] MEDS: FAMOTIDINE 20 MG TAB PO SCH (09:13)
[2021-02-17] MEDS ORDERED: PANTOprazole 40 MG TAB PO SCH (10:15)
[2021-02-17] MEDS ORDERED: SUCRALFATE 1 GM/10 ML UDC PO SCH (13:00)
[2021-02-17] MEDS: CEFEPIME 2,000 MG in SYRINGE 0 ML IV SCH (13:31)
--- NOTE | 2021-02-17 20:36 | Discharge Summary ---
Date of Service February 17, 2021 Admission HPI Per Admitting Provider This patient is a 66-year-old female with a history of recurrent UTIs with bilateral ureteral stents and chronic Fallon catheter, recurrent significant acute encephalopathy related to UTIs, CKD stage 3, morbid obesity, depression with anxiety, DM 2,?CVA, hyperlipidemia, constipation, chronic anemia, ambulatory dysfunction who was sent to the ER from [facility] with symptoms of unresponsiveness. I was unable to obtain any history from the patient as she continued to grown out loud and swat her hand at me. I spoke to her daughter on the phone who was unaware that the patient was even sent to the ER. She does report that when she talked to her mom 6 days ago, she started sounding confused, and daughter was told that her WBC count was elevated and that she was to be continued on IV antibiotics. She was discharged from this hospital about 10 days ago on IV daptomycin after admission for Enterococcus bacteremia. As per discharge summary, her daptomycin was to be completed on 02/07. In the ER here, the patient was confused as above, but vital signs were fairly normal, laboratory work-up was only significant for mild chronic anemia, and acute kidney injury with creatinine of 3.9 with baseline being 2.8. Troponin was negative, procalcitonin was negative, ammonia level was low, VBG was normal, and urinalysis was abnormal with packed WBCs, positive nitrite, and 20-30 epithelial cells. Her Covid test was negative, head CT showed no acute intracranial abnormality, chest x-ray showed mild pulmonary vascular congestion, and CT abdomen/pelvis without contrast showed no acute intra-abdominal process. She will be admitted for acute metabolic encephalopathy likely secondary to recurrent UTI as well as acute kidney injury. Principal Diagnosis EncephalopathyUTI, polypharmacy versus both UTI Discharge Exam In general she is awake alert oriented pleasant no distress. HEENT normocephal ic atraumatic mucous membranes moist. Breathing unlabored no accessory muscle use good effort. Abdomen is soft she has mild epigastric tenderness no guarding rebound or rigidity. No focal neuro deficits. Discharge Data Allergies Allergy/AdvReac Type Severity Reaction Status Date / Time Penicillins Allergy Severe Anaphylaxis Verified 02/12/21 15:54 cefazolin [From Ancef] Allergy Unknown Unknown Verified 02/12/21 15:54 pregabalin Allergy Unknown Unknown Verified 02/12/21 15:54 tramadol Allergy Unknown Unknown Verified 02/12/21 15:54 ertapenem AdvReac Severe See comment Verified 02/12/21 15:54 oxycodone AdvReac Unknown Unknown Unverified 02/12/21 15:54 Consultations 02/12/21 14:15 ED Decision to Admit Stat 02/14/21 07:56 Consult Urology Routine Ordered Studies 02/12/21 11:59 CT abd pelvis wo con Stat CT head/brain wo con Stat 02/13/21 15:34 US venous doppler LE RT Routine Hospital Course (1) Acute metabolic encephalopathy: Improving nicely. Likely related to infection, also could have a component of polypharmacy. Given concern on polypharmacy, and how well she seems to be doing right now, would anticipate discharging her on her current med listfairly pared down from what she was on prior. (2) Acute kidney injury superimposed on CKD: Creatinine elevated above baseline upon admission at 3.9 with baseline being anywhere from 2-2.8has improved to near her baseline rangeoutpatient follow-up. (3) Catheter-associated urinary tract infection: See prior notesbut after extensive review, seems that Pseudomonas was likely the offending agent if there was a UTI present as part of the enc ephalopathy picture (may still have all been polypharmacy)and ESBL was likely colonization. Given that it is difficult to rule out Pseudomonas as a culprit, will finish a course of cefepime. She did have some antibiotic associated diarrhea that quickly resolved and was completely inconsistent with C. difficile. Continue probiotics. She also has a degree of indigestion likely antibiotic related due to all of her GI upsetaggressive acid suppression for about a week and then start to pare back (4) Anemia: Hemoglobin fairly stable from previous Likely anemia of chronic kidney disease Outpatient follow-up (5) Depression with anxiety: Continue home bupropion, BuSpar and Cymbalta (6) Diabetes mellitus type 2 in obese: Sugars have overall remained adequate (7) Dyslipidemia: Not on medication for this (8) Chronic pain: Holding home baclofen, tramadol, hydrocodone as above Continue Cymbalta I do question if some of her encephalopathy could be toxic encephalopathy from polypharmacy. Right now she is not showing much as far as uncontrolled pain, will try to minimize sedating meds as she tolerates. See above as well as discharge instructions (9) Morbid obesity: BMI 44.7 (10) DVT prophylaxis: Heparin SQ Stable for return to SNF Total Time Total Time Spent Total Time Spent (In Minutes): <30 Discharge Plan Discharge Items Patient Disposition: Transfer [facility] Reason For Visit: ACUTE ENCEPHALOPATHY Discharge Diagnosis: encephalopathy - see below Condition on Discharge: Good Activity: Resume your previous activity Non-emergency contact: Primary Care Provider Call non-emergency contact if: you have any medication questions and your symptoms worsen Follow-up/Referrals: Ángel Adrian [Primary Care Provider] - Diet: Carb Consistent or DM2 Addtl Attending Provider Instructions: encephalopathy - hard to determine how much was contributory from UTI vs how much might have all been med side effect/polypharmacy - see below UTI - currently growing pseudomonas - sensitive to many Abx including cefepime - presumptively treating for 7 days w cefepime 2g IV q24hrs (for renal function) - next dose to be 8/5 @ [facility], with dosing 8/, 8/6, 8/7, 8. of note she also secondarily grew ESBL E Coli - but by the time that growth was showing up in micro she was only on the cefepime (to which the ESBL is resistant) and clinically better. labs and clinical picture followed another 48hrs and she continued to show improvement. repeat Cx only showing the pseudomonas. strongly suspect ESBL E Coli as colonization or even false (+) finding from other pelvic floor bacteria. please continue to follow her clinically, and if need arises, can continue to track CBC and procal with references to compare to based on current hospitalization polypharmacy - showing a degree of encephalopathy different than expected from cystitis/complicated UTI, and a pattern of improvement less consistent with that of septic encephalopathy than with that of toxic ADR mediated encephalopathy. due to her chronic pain, she is on a number of meds that certainly could cause delirium - especially in light of her suspect (and likely variable) renal function. the complicating factor is, of course, her chronic pain, but since i first picked up her care on monday she has not had chronic pain type complaints - just complaints related to antibiotic side effect diarrhea (see below) -- to that end for now her discharge med list reflects what we have been doing here, but of course if pain requires, meds can be added back on stepwise diarrhea - clinically has not appeared consistent wtih Cdiff, improved after ~2 doses cholestyramine nausea/GERD - again likely abx side effect, she had a reasonable amount of GERD/nausea type symptoms today -- will treat with aggressive mucosal protection for now - protonix BID + pepcid BID + carafate QID for about 7 days, then would drop carafate and pepcid, follow how she is doing clinically Pending Studies at Discharge: No Stand-Alone Forms: My [facility] Skilled Items Patient informed of condition?: Yes DNR: Yes Discharge Level of Care: Skilled Communicable Disease: No Discharge Prognosis: Stable Lines: Peripheral IV Urinary Catheter: Yes Medications and DC Order Prescriptions: New sucralfate 100 mg/mL Suspension 10 ml PO QID Qty: 500 RF: 0 pantoprazole 40 mg Tablet,Delayed Release (Dr/Ec) 40 mg PO BID Qty: 42 RF: 0 Floranex 100 million cell Granules In Packet 1 g PO TIDM Qty: 10 RF: 0 cefepime 2 gram recon soln 2 g IV Q24H Qty: 4 RF: 0 Continued alogliptin [Nesina] 25 mg Tablet 25 mg PO QAM RF: 0 Stress Formula Tablet 1 tab PO QAM RF: 0 bisacodyl 10 mg Suppository 10 mg ND DIRECTED PRN (Reason: Constipation) RF: 0 acetaminophen [Tylenol] 325 mg Tablet 650 mg PO Q6 MDD 3gm PRN (Reason: temp>101) RF: 0 cholecalciferol (vitamin D3) [Vitamin D3] 125 mcg (5,000 unit) Tablet 5,000 unit PO QAM RF: 0 acetaminophen [Tylenol Extra Strength] 500 mg Tablet 1,000 mg PO Q6H PRN (Reason: pain lever: 1-4) RF: 0 duloxetine [Cymbalta] 60 mg Capsule,Delayed Release(Dr/Ec) 60 mg PO QAM RF: 0 insulin aspart U-100 [Novolog U-100 Insulin aspart] 100 unit/mL solution See Rx Instructions .ROUTE .COMPLEX RF: 0 vitamin B complex Tablet 1 tab PO QAM RF: 0 D Mannose 350mg Capsule 1,050 mg PO BID RF: 0 famotidine [Pepcid] 20 mg tablet 20 mg PO BID RF: 0 simethicone [Gas-X Extra Strength] 125 mg Capsule 125 mg PO BID PRN (Reason: Dyspepsia) RF: 0 ferrous sulfate [Iron (ferrous sulfate)] 325 mg (65 mg iron) Tablet 325 mg PO QAM RF: 0 bupropion HCl [Wellbutrin XL] 300 mg Tablet Extended Release 24 Hr 300 mg PO QAM RF: 0 melatonin 5 mg Tablet 5 mg PO HS RF: 0 sennosides-docusate sodium [Senokot-S] 8.6-50 mg tablet 1 tab PO BID RF: 0 buspirone 15 mg Tablet 15 mg PO BID RF: 0 Discontinued baclofen 10 mg tablet 10 mg PO TID RF: 0 gabapentin [Neurontin] 400 mg capsule 800 mg PO TID RF: 0 hydrocodone-acetaminophen 5-325 mg Tablet 1 tab PO BID RF: 0 tramadol 50 mg Tablet 50 mg PO BID PRN (Reason: Pain level 5-10) RF: 0 Discharge Orders: Discharge Order (Routine); Ordered 02/17/21 Ordered By: Wesley Cardoso Admission Data Admit Date/Time: 02/14/21 08:02 Attending Provider: Wesley Cardoso Admit Provider: Heather Hough Primary Care Provider: Ángel Adrian Other Providers: Heather Hough ; Tyree Toney ; Rafy Eagle Other Interventions: Discharge Summary Assessment (RN) Last Done: 02/17/21 11:57 Coding Level of Care Code D/C DAY MANAGEMENT <30 MINS Diagnoses Acute metabolic encephalopathy G93.41 Acute kidney injury superimposed on CKD N17.9; N18.9 Catheter-associated urinary tract infection T83.511A; N39.0 Encounter type: initial encounter Indwelling urinary catheter type: indwelling urethral catheter Anemia D64.9 Anemia type: unspecified type Depression with anxiety F41.8 Diabetes mellitus type 2 in obese E11.69; E66.9 Dyslipidemia E78.5 Chronic pain G89.29 Morbid obesity E66.01 DVT prophylaxis Z29.9
== END 2021-02-17 15:25 | DRG 698 ==
LOC: ED 11:37 → 2E 11:37 → SUATTDRO 15:38 → 2E 16:54 → SUATTDRO 02-14 08:02 → 3W 02-14 17:42

== ENCOUNTER 2022-04-11 15:05 | Inpatient (IN) ==
[2022-04-11] MEDS ORDERED: SODIUM CHLORIDE 0.9% 500 ML IV SCH (15:30)
--- NOTE | 2022-04-11 15:48 | Emergency Department Note ---
Impression & Plan SOLEDAD (acute kidney injury), Anemia, Hydronephrosis, Acute dehydration, Acute UTI ED Provider Note NAME: MARGE MERCEDES AGE: 67 SEX: F : 1955 ARRIVES VIA: Ambulance INFORMANT: [Patient][ems] ED PROVIDER(S): [Tl Proctor MD] CHIEF COMPLAINT: Abnormal labs HISTORY OF PRESENT ILLNESS: The patient is a 67-year-old female who presents to the ED with abnormal labo ratory values. Her creatinine is chronically high but was very high today--8. She was sent for evaluation. She is not currently on dialysis. The patient is a very poor historian, she was not sure why she was here. She was not sure where she was in fact. She complains of being thirsty. She com plains of some pain in her feet. Given the mental state, no further history obtainable. REVIEW OF SYSTEMS: Unobtainable given the mental state. PMHx/PSHx: See Below SOCIAL HISTORY: See Below. PHYSICAL EXAM: GENERAL: Patient is in no acute distress. HEENT: No acute trauma, normocephalic atraumatic, mucous membranes very dry, no nasal congestion, no scleral icterus. NECK: No stridor, no adenopathy, no meningismus, trachea is midline. LUNGS: Clear to auscultation bilaterally, no wheeze, no rhonchi, breath sounds equal. HEART: Without murmurs gallops or rubs, regular rate and rhythm. ABDOMEN: Soft, nontender, bowel sounds positive, no peritonitis. EXTREMITIES: No cyanosis or edema, full range of motion of all the joints without pain or difficulty, no signs for acute trauma. NEUROLOGIC: Awake and alert, moves all extremities, disoriented. Very poor historian. SKIN: No rash, no jaundice, no diaphoresis. DIFFERENTIAL DIAGNOSIS: Infection, dehydration, UTI, urinary obstruction, metabolic abnormality, hypo/hyperglycemia, electrolyte disturbance, anemia, hypoxia, cardiac sources, intracerebral event, toxicologic issues, stroke, TIA, as well as other pathologies. EMERGENCY DEPARTMENT COURSE/PROCEDURES: ECG: Indication was renal failure. The ECG shows a normal sinus rhythm with a rate of 80. There is some nonspecific ST changes diffusely. There is some baseline artifact. There is no ST elevation, no PVCs. The QTC is 507 Continuous Cardiac Monitoring: An order was placed for continuous cardiac monitoring. The monitor shows a rate of 84 with normal sinus rhythm. MEDICAL DECISION MAKING: There is no leukocytosis. The patient is anemic, she is a history of anemia. There is a normal platelet count. Renal panel testing shows a creatinine of 8.3, this is a rise for her. She has chronic renal insufficiency but this number is above her baseline. Lactic acid level is not elevated making severe sepsis less likely. Alk phos slightly elevated, the remaining liver enzymes were unremarkable. ECG shows a normal sinus rhythm, no obvious ST elevation. C ardiac enzyme testing x1 is not consistent with acute cardiac injury. Patient appears to be in a euthyroid state. Urinalysis is consistent with potential infection. COVID test returned negative. Chest x-ray did not show pneumonia or CHF. Abdominal and pelvis CT did show some left-sided hydronephrosis, her ureteral stents were in position. A Fallon catheter was present in her bladder. The patient presents with acute kidney injury, dehydration. She appears to have a UTI. She is in need of a hospital stay. I did speak with the patient and case management, the on-call hospitalist has been consulted. During the ED stay the patient was given IV saline 1 L. She received IV daptomycin and IV aztreonam. Past Med/Surg History Medical History Anemia Anemia of chronic disease Calculi, ureter Chronic pain Depression with anxiety Dermatitis Diabetes mellitus type 2 in obese NIDDM Dyslipidemia Dysphagia Generalized atherosclerosis GERD (gastroesophageal reflux disease) H/O: CVA (cerebrovascular accident) History of COVID-19 05/2020> resolved per [facility] staff History of recurrent UTI (urinary tract infection) Incontinence Indwelling Fallon catheter present Lesion of bladder Metabolic encephalopathy 02/2021 Morbid obesity detention resident [facility] Osteomyelitis 2018 Overactive bladder Personal history of methicillin resistant Staphylococcus aureus Stage 5 chronic kidney disease not on chronic dialysis Ulcerative colitis Uropathy, obstructive Surgical History History of cataract surgery History of cystoscopy multiple--last 10/2021 @ [facility] History of esophagogastroduodenoscopy (EGD) Hx of surgical procedure presence of urogenital implants Presence urogenital implant S/P cholecystectomy S/P ureteral stent placement Family History Mother , age 79 of esophageal cancer Hypertension Father , in mid 60s of an PR Myocardial infarction Social History Smoking Status: Former smoker Tobacco Type: Cigarettes Age Quit Using Tobacco: 48; Second Hand Exposure: No; Hx Alcohol Use: No Hx Substance Use: No Preferred Language: Icelandic Communication Ability: Effective Visual Impairment: No Limitations [employer] Work[employer] Foreman Required: No Beliefs That Will Affect Care: None marital status: Current Living Situation: Intermediate Current Living Situation Comment: [facility] Resident current occupational status: retired Feels Safe at Home: Yes Assistive Devices: Glasses Allergies Allergies Allergy/AdvReac Type Severity Reaction Status Date / Time Penicillins Allergy Severe Anaphylaxis Verified 04/11/22 17:03 cefazolin [From Ancef] Allergy Unknown Unknown Verified 04/11/22 17:03 pregabalin Allergy Unknown Unknown Verified 04/11/22 17:03 tramadol Allergy Unknown Unknown Verified 04/11/22 17:03 ertapenem AdvReac Severe See comment Verified 04/11/22 17:03 oxycodone AdvReac Unknown Unknown Verified 04/11/22 17:03 Home Meds Home Medications Medication Instructions Recorded Confirmed cholecalciferol (vitamin D3) 125 5,000 unit PO DAILY 09/25/19 04/11/22 mcg (5,000 unit) tablet (Vitamin D3) bupropion HCl 300 mg 24 hr tablet, 300 mg PO QAM 11/13/20 04/11/22 extended release (Wellbutrin XL) acetaminophen 500 mg tablet 1,000 mg PO Q6H PRN Pain 12/03/20 04/11/22 (Tylenol Extra Strength) duloxetine 60 mg capsule,delayed 60 mg PO DAILY 12/03/20 04/11/22 release (Cymbalta) famotidine 20 mg tablet (Pepcid) 20 mg PO BID 01/24/21 04/11/22 alogliptin 25 mg tablet (Nesina) 25 mg PO QAM 03/15/21 04/11/22 bisacodyl 5 mg tablet,delayed 10 mg PO DAILY PRN Constipation 04/15/21 04/11/22 release (Dulcolax (bisacodyl)) hydrocodone 5 mg-acetaminophen 325 1 tab PO Q12 PRN Pain 04/15/21 04/11/22 mg tablet polyethylene glycol 3350 17 17 g PO DAILY 04/15/21 04/11/22 gram/dose oral powder (Miralax) buspirone 10 mg tablet 20 mg PO BID 09/28/21 04/11/22 calcium carb-mag hydrox-simeth 675 2 tab PO Q12 PRN Indigestion 09/28/21 04/11/22 mg-135 mg-60 mg chewable tablet cyclobenzaprine 5 mg tablet 5 mg PO Q8 PRN Muscle Spasm 09/28/21 04/11/22 fentanyl 25 mcg/hr transdermal 1 patch transdermal Q72H 09/28/21 04/11/22 patch methenamine hippurate 1 gram tablet 1 g PO BID 09/28/21 04/11/22 ondansetron 4 mg disintegrating 4 mg PO Q6H PRN Nausea 09/28/21 04/11/22 tablet trazodone 100 mg tablet 100 mg PO HS 09/28/21 04/11/22 cyanocobalamin (vitamin B-12) 500 500 mcg PO DAILY 01/14/22 04/11/22 mcg tablet ropinirole 0.5 mg tablet 0.5 mg PO HS 01/14/22 04/11/22 alogliptin 25 mg tablet 25 mg PO QAM 04/11/22 04/11/22 duloxetine 30 mg capsule,delayed 30 mg PO DAILY 04/11/22 04/11/22 release ferrous sulfate 325 mg (65 mg 325 mg PO DAILY 04/11/22 04/11/22 iron) tablet folic acid 1 mg tablet 1 mg PO DAILY 04/11/22 04/11/22 gabapentin 100 mg capsule 100 mg PO BID 04/11/22 04/11/22 Previous Rx's Medication Instructions Recorded pantoprazole 40 mg tablet,delayed 40 mg PO BID #42 tabs 02/17/21 release Results & Data (ED) Vital Signs Vital Signs - 24 hr 04/11/22 15:24 04/11/22 15:21 04/11/22 15:30 Temperature 36.5 C Temperature Source Oral Pulse Rate 84 80 84 Pulse Rate from SpO2 Sensor 81 85 Pulse Rhythm Regular Pulse Strength Normal Respiratory Rate 18 14 18 Respiratory Effort / Characteristics Non-Labored Spontaneous Respiratory Depth Normal Respiratory Pattern Regular Blood Pressure 105/82 Blood Pressure Mean 89 Blood Pressure Position Lying Pulse Oximetry 92 98 95 Oxygen Delivery Method Room Air Sepsis Recent Fever Within 48 Hours No Sepsis New/Unexplained Change in Mental Status N/A Sepsis Action Taken by Nursing No Action Required 04/11/22 15:31 04/11/22 15:31 04/11/22 15:40 Temperature Temperature Source Pulse Rate 87 81 Pulse Rate from SpO2 Sensor 87 81 Pulse Rhythm Pulse Strength Respiratory Rate 15 16 Respiratory Effort / Characteristics Respiratory Depth Respiratory Pattern Blood Pressure Blood Pressure Mean 31 Blood Pressure Position Pulse Oximetry 98 Oxygen Delivery Method Sepsis Recent Fever Within 48 Hours Sepsis New/Unexplained Change in Mental Status Sepsis Action Taken by Nursing 04/11/22 15:50 04/11/22 16:00 04/11/22 16:01 Temperature Temperature Source Pulse Rate 81 80 79 Pulse Rate from SpO2 Sensor 81 80 80 Pulse Rhythm Pulse Strength Respiratory Rate 20 17 Respiratory Effort / Characteristics Respiratory Depth Respiratory Pattern Blood Pressure Blood Pressure Mean Blood Pressure Position Pulse Oximetry 99 98 97 Oxygen Delivery Method Sepsis Recent Fever Within 48 Hours Sepsis New/Unexplained Change in Mental Status Sepsis Action Taken by Nursing 04/11/22 16:01 04/11/22 16:27 04/11/22 16:30 Temperature Temperature Source Pulse Rate Pulse Rate from SpO2 Sensor 82 Pulse Rhythm Pulse Strength Respiratory Rate Respiratory Effort / Characteristics Respiratory Depth Respiratory Pattern Blood Pressure 102/65 100/64 Blood Pressure Mean 77 76 Blood Pressure Position Pulse Oximetry 100 Oxygen Delivery Method Sepsis Recent Fever Within 48 Hours Sepsis New/Unexplained Change in Mental Status Sepsis Action Taken by Nursing 04/11/22 16:30 Temperature Temperature Source Pulse Rate Pulse Rate from SpO2 Sensor 82 Pulse Rhythm Pulse Strength Respiratory Rate Respiratory Effort / Characteristics Respiratory Depth Respiratory Pattern Blood Pressure Blood Pressure Mean Blood Pressure Position Pulse Oximetry 98 Oxygen Delivery Method Sepsis Recent Fever Within 48 Hours Sepsis New/Unexplained Change in Mental Status Sepsis Action Taken by Intermediate Medications Current Medication List: was personally reviewed by me Laboratory Data Attestation: I reviewed the patient's lab results. Result diagrams: 04/11/22 15:36 04/11/22 15:36 Lab Results 04/11/22 04/11/22 04/11/22 Range/Units 15:36 15:36 15:36 WBC 9.46 (4.8-10.8) K/ul RBC 2.30 L (3.93-5.22) M/uL Hgb 7.3 L (12.0-16.0) g/dl Hct 23.4 L (34.1-44.9) % MCV 101.7 H (80.0-100.0) fL MCH 31.7 (25.0-34.0) pg MCHC 31.2 L (32.0-36.0) g/dL RDW Std Deviation 56.4 H (36.4-46.3) fL RDW Coeff of Katina 15.1 H (11.5-14.5) % Plt Count 285 (130-400) K/uL MPV 10.1 (9.4-12.3) fL Immature Gran % (Auto) 0.5 % Neut % (Auto) 71.1 % Lymph % (Auto) 18.4 % [place] % (Auto) 6.0 % Eos % (Auto) 3.3 % Baso % (Auto) 0.7 % Neut # (Auto) 6.72 H (1.4-6.5) K/uL Lymph # (Auto) 1.74 (1.2-3.4) K/uL [place] # (Auto) 0.57 (0.24-0.82) K/uL Eos # (Auto) 0.31 (0-0.50) K/uL Baso # (Auto) 0.07 (0-0.2) K/uL Immature Gran # (Auto) 0.05 H (0.00-0.02) K/uL Polychromasia 1+ Tear Drop Cells 1+ Sodium 136 (136-145) mmol/L Potassium 4.0 (3.5-5.1) mmol/L Chloride 108 H (98-107) mmol/L Carbon Dioxide 14 L (21-32) mmol/L Anion Gap 14 H (3-11) BUN 93 H (6-23) mg/dl Creatinine 8.30 H* (0.6-1.2) mg/dl Est Cr Clr Drug Dosing 7.1 ml/min Est GFR ( Amer) 5.3 ml/min Est GFR (Non-Af Amer) 4.6 ml/min BUN/Creatinine Ratio 11.2 (10-20) Glucose 67 L (70-99(Fasting)) mg/dl Calcium 8.8 (8.5-10.1) mg/dl Magnesium 2.4 (1.7-2.4) mg/dl Iron (35-150) mcg/dl Unsaturated IBC (155-355) mcg/dl Total Bilirubin 0.7 (0.2-1.0) mg/dl AST 7 L (13-39) U/L ALT 5 L (7-52) U/L Alkaline Phosphatase 146 H (34-104) U/L Troponin I High Sens 4.6 (0-14) pg/ml Total Protein 7.1 (6.0-8.3) gm/dl Albumin 3.2 L (3.4-5.0) gm/dl Globulin 3.9 (2.5-4.0) gm/dl Albumin/Globulin Ratio 0.8 L (0.9-2) TSH 2.468 (0.300-4.500) uIu/ml Urine Color Urine Appearance (Clear) Urine pH (4.5-7.5) Ur Specific [place] (1.000-1.030) Urine Protein (Negative) Urine Glucose (UA) (Negative) Urine Ketones (Negative) Urine Blood (Negative) Urine Nitrite (Negative) Urine Bilirubin (Negative) Urine Urobilinogen (Negative) Ur Leukocyte Esterase (Negative) Urine RBC (0-4) /hpf Urine WBC (0-5) /hpf Ur Epithelial Cells (0-5) /lpf Amorphous Sediment (None Prsent) Urine Bacteria (Negative) Urine Mucus (None Prsent) 04/11/22 04/11/22 Range/Units 15:36 15:55 WBC (4.8-10.8) K/ul RBC (3.93-5.22) M/uL Hgb (12.0-16.0) g/dl Hct (34.1-44.9) % MCV (80.0-100.0) fL MCH (25.0-34.0) pg MCHC (32.0-36.0) g/dL RDW Std Deviation (36.4-46.3) fL RDW Coeff of Katina (11.5-14.5) % Plt Count (130-400) K/uL MPV (9.4-12.3) fL Immature Gran % (Auto) % Neut % (Auto) % Lymph % (Auto) % [place] % (Auto) % Eos % (Auto) % Baso % (Auto) % Neut # (Auto) (1.4-6.5) K/uL Lymph # (Auto) (1.2-3.4) K/uL [place] # (Auto) (0.24-0.82) K/uL Eos # (Auto) (0-0.50) K/uL Baso # (Auto) (0-0.2) K/uL Immature Gran # (Auto) (0.00-0.02) K/uL Polychromasia Tear Drop Cells Sodium (136-145) mmol/L Potassium (3.5-5.1) mmol/L Chloride (98-107) mmol/L Carbon Dioxide (21-32) mmol/L Anion Gap (3-11) BUN (6-23) mg/dl Creatinine (0.6-1.2) mg/dl Est Cr Clr Drug Dosing ml/min Est GFR ( Amer) ml/min Est GFR (Non-Af Amer) ml/min BUN/Creatinine Ratio (10-20) Glucose (70-99(Fasting)) mg/dl Calcium (8.5-10.1) mg/dl Magnesium (1.7-2.4) mg/dl Iron 116 (35-150) mcg/dl Unsaturated IBC < 55 L (155-355) mcg/dl Total Bilirubin (0.2-1.0) mg/dl AST (13-39) U/L ALT (7-52) U/L Alkaline Phosphatase (34-104) U/L Troponin I High Sens (0-14) pg/ml Total Protein (6.0-8.3) gm/dl Albumin (3.4-5.0) gm/dl Globulin (2.5-4.0) gm/dl Albumin/Globulin Ratio (0.9-2) TSH (0.300-4.500) uIu/ml Urine Color Dark Yellow Urine Appearance Turbid A (Clear) Urine pH >= 9.0 H (4.5-7.5) Ur Specific [place] 1.020 (1.000-1.030) Urine Protein 3+ H (Negative) Urine Glucose (UA) Negative (Negative) Urine Ketones Negative (Negative) Urine Blood 2+ H (Negative) Urine Nitrite Negative (Negative) Urine Bilirubin Negative (Negative) Urine Urobilinogen Negative (Negative) Ur Leukocyte Esterase 3+ H (Negative) Urine RBC 10-30 H (0-4) /hpf Urine WBC 10-30 H (0-5) /hpf Ur Epithelial Cells 0-5 (0-5) /lpf Amorphous Sediment Present A (None Prsent) Urine Bacteria 3+ H (Negative) Urine Mucus Present A (None Prsent) Administered Medications Famotidine (Famotidine 20 Mg Tab) 20 mg PO BID ELAN Stop: 05/11/22 21:32 Last Admin: 04/11/22 22:20 Dose: 20 mg Documented By: MARELY Heparin Sodium (Porcine) (Heparin Sod 5,000 Unit/0.5 Ml Vial) 5,000 units SQ Q12 ELAN Stop: 05/11/22 21:32 Last Admin: 04/11/22 22:25 Dose: 5,000 units Documented By: MARELY Sodium Chloride (1/2 Nss) 1,000 mls @ 100 mls/hr IV .Q10H ELAN Stop: 05/11/22 21:32 Last Admin: 04/11/22 22:29 Dose: 100 mls/hr Documented By: MARELY Sodium Bicarbonate 100 meq/ (Sterile Water) 1,100 mls @ 100 mls/hr IV .Q11H ELAN Stop: 05/11/22 21:32 Last Admin: 04/11/22 22:31 Dose: 100 mls/hr Documented By: MARELY Trazodone HCl (Trazodone Hcl 100 Mg Tab) 100 mg PO HS ELAN Stop: 05/11/22 21:32 Last Admin: 04/11/22 22:23 Dose: 100 mg Documented By: MARELY Discontinued Medications Sodium Chloride (Nss) 500 mls @ 999 mls/hr IV .Q31M ELAN Stop: 04/11/22 16:00 Last Infusion: 04/11/22 18:07 Dose: 0 mls/hr Documented By: [id number] Admin: 04/11/22 16:35 Dose: 999 mls/hr Documented By: [id number] Aztreonam 2,000 mg/ Dextrose 110 mls @ 110 mls/hr IV NOW ONE Stop: 04/11/22 16:59 Last Infusion: 04/11/22 18:07 Dose: 0 mls/hr Documented By: [id number] Admin: 04/11/22 16:35 Dose: 110 mls/hr Documented By: [id number] Daptomycin 275 mg/ Syringe 5.5 mls @ 2.75 mls/min IV NOW ONE; Protocol Stop: 04/11/22 16:01 Last Admin: 04/11/22 16:35 Dose: 2.75 mls/min Documented By: [id number] Sodium Chloride (Nss 1000ml) 500 mls @ 999 mls/hr IV .Q31M ONE Stop: 04/11/22 17:13 Last Infusion: 04/11/22 19:55 Dose: 0 mls/hr Documented By: [id number] Admin: 04/11/22 18:08 Dose: 999 mls/hr Documented By: [id number] Imaging Data Radiologist's Impression: Chest X-Ray 04/11/22 15:28 XR chest 1V portable CLINICAL HISTORY: weakness TECHNIQUE: Single frontal radiograph of the chest was obtained. Comparison: Comparison is made to chest radiograph 02/12/2021 FINDINGS: No lines and tubes are seen. The cardiomediastinal silhouette is normal. The lungs are clear. No evidence of pleural effusion or pneumothorax. IMPRESSION: No acute abnormality. Previously noted pulmonary vascular congestion has resolved. ACT 112: Negative or not required by law. Electronically signed by: Dale Day M.D. 04/11/2022 5:13 PM Abdomen/Pelvis CT 04/11/22 15:41 CT SCAN OF THE ABDOMEN AND PELVIS WITHOUT IV CONTRAST CLINICAL HISTORY: Generalized abdominal pain. Dysuria. COMPARISON STUDY: Abdominal CT dated 02/12/2021. TECHNIQUE: CT scan of the abdomen and pelvis is performed from the lung bases to the proximal femora. Images are reviewed in the axial, sagittal, and coronal planes. IV contrast was not administered for this examination. A dose lowering technique was utilized adhering to the principles of ALARA. CT DOSE: 1145.41 mGy.cm FINDINGS: Lung bases: The heart is normal in size and without pericardial effusion. The coronary arteries are densely calcified. The lung bases are clear noting bibasilar scarring/atelectasis. Liver: The unenhanced liver is normal size and heterogeneous attenuation. Mild nodularity of the hepatic surface contour suggests early morphologic changes of cirrhosis. Calcifications along the right lobe capsule are unchanged. There is no intrahepatic biliary ductal dilatation. Gallbladder: Surgically absent and clips in the gallbladder fossa. Spleen: Normal in size and attenuation. Pancreas: The unenhanced pancreas is moderately atrophic and grossly unremarkable. Adrenal glands: A 1.8 cm left adrenal adenoma is unchanged. The right adrenal gland is normal in appearance. Kidneys: The unenhanced kidneys are atrophic. Bilateral vesicoureteral stents are in place. No calcifications are identified in either ureter or along the course of the stents. There are numerous small stone fragments within the right kidney measuring up to 4 mm. No calcifications are identified in the left kidney. There is [id number] left-sided hydronephrosis. There is only mild fullness of the right renal collecting system. Urothelial thickening is seen within the renal pelvis bilaterally and involving both ureters, left greater than right. There is bilateral perinephric and periureteric stranding, again greater on the left. There are punctate foci of gas within the right renal pel vis. No contour deforming renal mass lesion is suggested on this unenhanced examination. Abdominal vasculature: The abdominal aorta is normal in course and caliber noting moderate to advanced atherosclerotic calcification. Bowel: There are scattered colonic diverticula without CT evidence of acute diverticulitis. No bowel obstruction is seen. Moderate fecal retention is noted throughout the colon. The appendix is well-visualized and normal. Peritoneum: There is no intraperitoneal free air or abdominal ascites. There are fat-containing umbilical/periumbilical hernias. There is asymmetric atrophy of the left psoas musculature. Lymphadenopathy: None. Pelvic viscera: The bladder is decompressed around a Fallon catheter and not well assessed. There are nonspecific foci of intraluminal gas as well as pericystic inflammation. The bladder contains the distal end of bilateral ureteral stents. Gas is noted within the vagina. The uterus and adnexa are normal as imaged. Skeletal structures: The skeletal structures are osteopenic. The skeletal structures are osteopenic. There is moderate lumbosacral spondylosis. Mild superior endplate compression deformities of L2, L3, and L4 are age indeterminate but new from 02/12/2021. No lytic or blastic lesions are seen. Advanced arthritic change and deformity is present in both hips. IMPRESSION: 1. The bladder is decompressed around a Fallon catheter and not well evaluated. There is pericystic inflammation. Correlate with clinical findings and urinalysis for evidence of cystitis. 2. Bilateral ureteral stents are in place. No calculi are identified in either ureter along the course of the stents. 3. Numerous stone fragments are present in the right renal collecting system. 4. There is mild to moderate left hydronephrosis. 5. Urothelial thickening is seen within the renal pelvis bilaterally and involving both ureters with surrounding inflammation. This is greater on the left. There are tiny foci of nonspecific gas within the right renal pelvis. These findings could be related to instrumentation and the presence of indwelling stents. Correlate with clinical findings and urinalysis for evidence of ascending urinary tract infections. 6. Moderate constipation. 7. There are mild and age-indeterminate superior endplate compression deformities of L2, L3, and L4. These are new from 02/12/2021. Correlate for point tenderness. 8. Additional findings as above. ACT 112: Negative or not required by law. Electronically signed by: Tl Jolley M.D. 04/11/2022 4:37 PM Discharge Plan Visit Data Chief Complaint: Abnormal Labs/Diagnostic Testing ED Provider: Tl Proctor Discharge Problem: SOLEDAD (acute kidney injury), Anemia, Hydronephrosis, Acute dehydration, Acute UTI Patient Disposition: Admitted As Inpatient Condition: Fair Discharge Instructions Interventions: ED Discharge Assessment Last Done: 04/11/22 21:04
[2022-04-11 15:58] LABS: Basophils # (auto) 0.07 K/uL (0-0.2); Basophils % (auto) 0.7 %; Eosinophils # (auto) 0.31 K/uL (0-0.50); Eosinophils % (auto) 3.3 %; Hematocrit (blood only) 23.4 % (34.1-44.9); Hemoglobin 7.3 g/dl (12.0-16.0); Immature Granulocytes # (auto) 0.05 K/uL (0.00-0.02); Immature Granulocytes % (auto) 0.5 %; Lymphocytes # (auto) 1.74 K/uL (1.2-3.4); Lymphocytes % (auto) 18.4 %; Mean Corpuscular Hemoglobin 31.7 pg (25.0-34.0); Mean Corpuscular Hgb Conc 31.2 g/dL (32.0-36.0); Mean Corpuscular Volume 101.7 fL (80.0-100.0); Mean Platelet Volume 10.1 fL (9.4-12.3); Monocytes # (auto) 0.57 K/uL (0.24-0.82); Neutrophils # (auto) 6.72 K/uL (1.4-6.5); Neutrophils % (auto) 71.1 %; Platelet Count 285 K/uL (130-400); RDW Coefficient of Variation 15.1 % (11.5-14.5); RDW Standard Deviation 56.4 fL (36.4-46.3); White Blood Count 9.46 K/ul (4.8-10.8)
[2022-04-11] MEDS ORDERED: DAPTOmycin 275 MG in SYRINGE 0 ML IV ONE (16:00)
[2022-04-11] MEDS ORDERED: AZTREONAM 2,000 MG in DEXTROSE 5% 100 ML IV ONE (16:00)
--- NOTE | 2022-04-11 16:17 | History & Physical Report ---
Date of Service April 11, 2022 Assessment & Plan (1) Kyrss-ah-dpoguvs kidney injury: Plan: Significant elevation of creatinine reduction of bicarbonate and preservation of potassium suggest this may be more chronic. Patient has a known history of ureteral stenting. These will be reevaluated by imaging. Patient be placed on intravenous hydration as she clinically appears dry. one liter of 1/2 ns then transiton to nss unless nephrology wishes to ammend. The patient also david has a catherter associated urinary tract infection on presentation awaiting culture results (2) UTI (urinary tract infection): Plan: Given the patient's multiple allergies and renal failure plus the results of her past infections being Enterococcus and Providencia plus distant history of ESBL E. coli and Pseudomonas daptomycin and aztreonam were started in the emergency department and will be continued (3) Chronic kidney disease, stage 4 (severe): Plan: Patient has severe previous kidney disease and discussions with nephrology or that the family did not wish to pursue dialysis. If the patient does not have a improvement in her renal function or she has worsening of bicarbonate or potassium nephrology consult be undertaken. We will likely undertake a urology consultation to evaluate obstructive uropathy as a cause (4) Diabetes mellitus type 2 in obese: Plan: Patient's had a tremendous weight loss. At her last admission she had a BMI of 44 now she is 30 She takes alogliptin IDD P4 inhibitor this dose that should be severely reduced with her renal dysfunction (6.25) Subsequently be held and insulin will be used cautiously (5) Depression with anxiety: Plan: There was concerns in the past for polypharmacy patient remain on trazodone 100 at bedtime( no data on renal imparement dosing) Cymbalta 120, BuSpar 20, these should not be used in Cr Cl <30 according to [facility] will hold Wellbutrin 300 is renally excetred but no data exixts, will reduce the dose (6) DVT prophylaxis: Plan: heparin History of Present Illness Primary Care Provider: [facility] 67-year-old female resident of the [facility] was sent because of elevation of creatinine. Patient has a known history of chronic kidney disease stage IV. She has bilateral ureteral stents which were last changed January 20. She is in no immediate distress but cannot provide any significant history. Patient labs support and intact potassium with a mild reduction of bicarbonate she typically follows [facility] nephrology. Antidotal leave the emergency room doctor felt that the family has been approached in the past about dialysis but did not feel they wanted to pursue that Allergies Allergy/AdvReac Type Severity Reaction Status Date / Time Penicillins Allergy Severe Anaphylaxis Verified 01/25/22 07:49 cefazolin [From Ancef] Allergy Unknown Unknown Verified 01/25/22 07:49 pregabalin Allergy Unknown Unknown Verified 01/25/22 07:49 tramadol Allergy Unknown Unknown Verified 01/25/22 07:49 ertapenem AdvReac Severe See comment Verified 01/25/22 07:49 oxycodone AdvReac Unknown Unknown Verified 01/25/22 07:49 Home Medications Medication Instructions Recorded Confirmed Type cholecalciferol (vitamin D3) 125 5,000 unit PO DAILY 09/25/19 01/25/22 History mcg (5,000 unit) tablet (Vitamin D3) bupropion HCl 300 mg 24 hr tablet, 300 mg PO QAM 11/13/20 01/25/22 History extended release (Wellbutrin XL) acetaminophen 500 mg tablet 1,000 mg PO Q6H PRN pain lever: 1-4 12/03/20 01/25/22 History (Tylenol Extra Strength) duloxetine 60 mg capsule,delayed 120 mg PO DAILY 12/03/20 01/25/22 History release (Cymbalta) famotidine 20 mg tablet (Pepcid) 20 mg PO BID 01/24/21 01/25/22 History pantoprazole 40 mg tablet,delayed 40 mg PO BID #42 tabs 02/17/21 01/25/22 Rx release alogliptin 25 mg tablet (Nesina) 25 mg PO QAM 03/15/21 01/25/22 History bisacodyl 5 mg tablet,delayed 10 mg PO DAILY PRN Constipation 04/15/21 01/25/22 History release (Dulcolax (bisacodyl)) guaifenesin 50 mg/5 mL oral liquid 100 mg PO Q8 PRN Cough 04/15/21 01/25/22 His tory hydrocodone 5 mg-acetaminophen 325 1 tab PO Q12 PRN Pain 04/15/21 01/25/22 History mg tablet polyethylene glycol 3350 17 17 g PO DAILY 04/15/21 01/25/22 History gram/dose oral powder (Miralax) buspirone 10 mg tablet 20 mg PO BID 09/28/21 01/25/22 History calcium carb-mag hydrox-simeth 675 2 tab PO Q12 PRN Indigestion 09/28/21 01/25/22 History mg-135 mg-60 mg chewable tablet cyclobenzaprine 5 mg tablet 5 mg PO Q8 PRN Muscle Spasm 09/28/21 01/25/22 History fentanyl 25 mcg/hr transdermal 1 patch transdermal Q72H 09/28/21 01/25/22 History patch gabapentin 100 mg tablet 100 mg PO BID 09/28/21 01/25/22 History methenamine hippurate 1 gram tablet 1 g PO BID 09/28/21 01/25/22 History ondansetron 4 mg disintegrating 4 mg PO Q6H PRN Nausea 09/28/21 01/25/22 History tablet sodium chloride 0.65 % nasal spray 1 spray intranasal UD PRN Nasal 09/28/21 01/25/22 History aerosol (Saline Nasal) Congestion trazodone 100 mg tablet 100 mg PO HS 09/28/21 01/25/22 History cyanocobalamin (vitamin B-12) 500 500 mcg PO DAILY 01/14/22 01/25/22 History mcg tablet ropinirole 0.5 mg tablet 0.5 mg PO HS 01/14/22 01/25/22 History Past Med/Surg History Medical History Anemia Anemia of chronic disease Calculi, ureter Chronic pain Depression with anxiety Dermatitis Diabetes mellitus type 2 in obese NIDDM Dyslipidemia Dysphagia Generalized atherosclerosis GERD (gastroesophageal reflux disease) H/O: CVA (cerebrovascular accident) History of COVID-19 05/2020> resolved per [facility] staff History of recurrent UTI (urinary tract infection) Incontinence Indwelling Fallon catheter present Lesion of bladder Metabolic encephalopathy 02/2021 Morbid obesity skilled nursing resident [facility] Osteomyelitis 2018 Overactive bladder Personal history of methicillin resistant Staphylococcus aureus Stage 5 chronic kidney disease not on chronic dialysis Ulcerative colitis Uropathy, obstructive Surgical History History of cataract surgery History of cystoscopy multiple--last 10/2021 @ [facility] History of esophagogastroduodenoscopy (EGD) Hx of surgical procedure presence of urogenital implants Presence urogenital implant S/P cholecystectomy S/P ureteral stent placement Family History Mother , age 79 of esophageal cancer Hypertension Father , in mid 60s of an [place] Myocardial infarction Social History Smoking Status: Former smoker Tobacco Type: Cigarettes Age Quit Using Tobacco: 48; Second Hand Exposure: No; Hx Alcohol Use: No Hx Substance Use: No Preferred Language: Ethiopian Communication Ability: Effective Visual Impairment: No Limitations 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 Required: No Beliefs That Will Affect Care: None marital status: Current Living Situation: Long Term Current Living Situation Comment: [facility] Resident current occupational status: retired Feels Safe at Home: Yes Assistive Devices: Glasses Review of Systems Review of Systems: Patient's review of systems influenced by her cognitive affect she is quite a joking person and tangential in her discussion probably with baseline dementia mild distress and fatigue overall weakness and difficulty moving about no headache, no visual changes no speech or swallowing issues no chest pain, pressure or palpitations no shortness of breath, cough or wheezes no abdominal pain, nausea or vomiting, diarrhea or constipation no dysuria, hematuria or frequency no focal joint pain or swelling no back pain, CVA tenderness or radicular pain no bruising, bleeding or rashes no focal signs of weakness or numbness oriented x2 only no complaints of anxiety or depression.. Physical Exam Physical Exam: The patient appeared well nourished and normally developed. Vital signs as documented. Head exam is normocephalic atraumatic Neck is without JVD, thyromegaly, or carotid bruits. Lungs are clear but diminished based on body habitus. Cardiac exam, Rhythm is regular.. No murmurs, rubs or gallops. Abdominal exam reveals normal bowel sounds, soft non tender, no masses no abdominal bruits are heard Extremities are trace to 1+ edema bilaterally and both pedal pulses are present Neurologic exam is alert and oriented x2, no focal loss of strength or sensation Skin is without bruises or rashes Psychologically is without concerns for anxiety or depression.. Results & Data Results & Data ([facility]) Vital Signs (Past 12 Hours) Vital Signs Temp Pulse Resp BP Pulse Ox O2 Del Method 04/11/22 16:01 102/65 04/11/22 16:01 79 17 97 04/11/22 16:00 80 20 98 04/11/22 15:50 81 99 04/11/22 15:40 81 16 98 04/11/22 15:31 87 15 04/11/22 15:30 84 18 95 04/11/22 15:21 80 14 98 04/11/22 15:24 97.7 F 84 18 105/82 92 Room Air PG Care Time/CCT Total # of Minutes Spent Total Time Spent with Patient: Total time spent is greater than 50% in coordination of care (as documented) at patient's floor/unit and/or counseling patient: Coding Level of Care Code 52583 Initial Inpt Care Lvl 3 Diagnoses [id number] kidney injury N17.9; N18.9 UTI (urinary tract infection) N39.0 Chronic kidney disease, stage 4 (severe) N18.4 Diabetes mellitus type 2 in obese E11.69; E66.9 Depression with anxiety F41.8 DVT prophylaxis Z29.9
[2022-04-11 16:27] LABS: Polychromasia 1+; Tear Drop Cells 1+
--- NOTE | 2022-04-11 16:38 | CT Scan Report ---
CT SCAN OF THE ABDOMEN AND PELVIS WITHOUT IV CONTRAST CLINICAL HISTORY: Generalized abdominal pain. Dysuria. COMPARISON STUDY: Abdominal CT dated 02/12/2021. TECHNIQUE: CT scan of the abdomen and pelvis is performed from the lung bases to the proximal femora. Images are reviewed in the axial, sagittal, and coronal planes. IV contrast was not administered for this examination. A dose lowering technique was utilized adhering to the principles of ALARA. CT DOSE: 1145.41 mGy.cm FINDINGS: Lung bases: The heart is normal in size and without pericardial effusion. The coronary arteries are d ensely calcified. The lung bases are clear noting bibasilar scarring/atelectasis. Liver: The unenhanced liver is normal size and heterogeneous attenuation. Mild nodularity of the hepa tic surface contour suggests early morphologic changes of cirrhosis. Calcifications along the right l obe capsule are unchanged. There is no intrahepatic biliary ductal dilatation. Gallbladder: Surgically absent and clips in the gallbladder fossa. Spleen: Normal in size and attenuation. Pancreas: The unenhanced pancreas is moderately atrophic and grossly unremarkable. Adrenal glands: A 1.8 cm left adrenal adenoma is unchanged. The right adrenal gland is normal in appe arance. Kidneys: The unenhanced kidneys are atrophic. Bilateral vesicoureteral stents are in place. No calcif ications are identified in either ureter or along the course of the stents. There are numerous small stone fragments within the right kidney measuring up to 4 mm. No calcifications are identified in the left kidney. There is lzly-we-hprquyoe left-sided hydronephrosis. There is only mild fullness of the right renal collecting system. Urothelial thickening is seen within the renal pelvis bilaterally and involving both ureters, left greater than right. There is bilateral perinephric and periureteric str anding, again greater on the left. There are punctate foci of gas within the right renal pelvis. No c ontour deforming renal mass lesion is suggested on this unenhanced examination. Abdominal vasculature: The abdominal aorta is normal in course and caliber noting moderate to advance d atherosclerotic calcification. Bowel: There are scattered colonic diverticula without CT evidence of acute diverticulitis. No bowel obstruction is seen. Moderate fecal retention is noted throughout the colon. The appendix is well-vi sualized and normal. Peritoneum: There is no intraperitoneal free air or abdominal ascites. There are fat-containing umbil ical/periumbilical hernias. There is asymmetric atrophy of the left psoas musculature. Lymphadenopathy: None. Pelvic viscera: The bladder is decompressed around a Fallon catheter and not well assessed. There are nonspecific foci of intraluminal gas as well as pericystic inflammation. The bladder contains the dis radha end of bilateral ureteral stents. Gas is noted within the vagina. The uterus and adnexa are negro l as imaged. Skeletal structures: The skeletal structures are osteopenic. The skeletal structures are osteopenic. There is moderate lumbosacral spondylosis. Mild superior endplate compression deformities of L2, L3, and L4 are age indeterminate but new from 02/12/2021. No lytic or blastic lesions are seen. Advanced a rthritic change and deformity is present in both hips. IMPRESSION: 1. The bladder is decompressed around a Fallon catheter and not well evaluated. There is pericystic in flammation. Correlate with clinical findings and urinalysis for evidence of cystitis. 2. Bilateral ureteral stents are in place. No calculi are identified in either ureter along the cours e of the stents. 3. Numerous stone fragments are present in the right renal collecting system. 4. There is mild to moderate left hydronephrosis. 5. Urothelial thickening is seen within the renal pelvis bilaterally and involving both ureters with surrounding inflammation. This is greater on the left. There are tiny foci of nonspecific gas within the right renal pelvis. These findings could be related to instrumentation and the presence of indwel ling stents. Correlate with clinical findings and urinalysis for evidence of ascending urinary tract infections. 6. Moderate constipation. 7. There are mild and age-indeterminate superior endplate compression deformities of L2, L3, and L4. These are new from 02/12/2021. Correlate for point tenderness. 8. Additional findings as above. ACT 112: Negative or not required by law. Electronically signed by: Tl Jolley M.D. 04/11/2022 4:37 PM
[2022-04-11 16:41] LABS: Albumin Globulin Ratio 0.8 (0.9-2); Albumin Level 3.2 gm/dl (3.4-5.0); BUN Creatinine Ratio 11.2 (10-20); Bilirubin,Total 0.7 mg/dl (0.2-1.0); Calcium 8.8 mg/dl (8.5-10.1); Creatinine Clr Calc Pharmacy 7.1 ml/min; Est GFR (African American) 5.3 ml/min; Est GFR (Non-African American) 4.6 ml/min; Globulin 3.9 gm/dl (2.5-4.0); Magnesium 2.4 mg/dl (1.7-2.4); Total Protein 7.1 gm/dl (6.0-8.3); Troponin I High Sensitivity 4.6 pg/ml (0-14)
[2022-04-11] MEDS ORDERED: SODIUM CHLORIDE 0.9% 1000ML 500 ML IV ONE (16:43)
[2022-04-11 17:00] LABS: Appearance Urine Turbid (Clear); Bilirubin Urine Negative (Negative); Blood Urine 2+ (Negative); Glucose Urine UA Negative (Negative); Ketones Urine Negative (Negative); Leukocyte Esterase Urine 3+ (Negative); Nitrite Urine Negative (Negative); Protein Urine 3+ (Negative); Urobilinogen Urine Negative (Negative); pH Urine >= 9.0 (4.5-7.5)
[2022-04-11 17:01] LABS: Color Urine Dark Yellow
[2022-04-11 17:08] LABS: Amorphous Sediment Urine Present (None Prsent); Bacteria Urine 3+ (Negative); Epithelial Cell Urine 0-5 /lpf (0-5); Mucus Urine Present (None Prsent)
--- NOTE | 2022-04-11 17:14 | XRay Report ---
XR chest 1V portable CLINICAL HISTORY: weakness TECHNIQUE: Single frontal radiograph of the chest was obtained. Comparison: Comparison is made to chest radiograph 02/12/2021 FINDINGS: No lines and tubes are seen. The cardiomediastinal silhouette is normal. The lungs are clear. No evid ence of pleural effusion or pneumothorax. IMPRESSION: No acute abnormality. Previously noted pulmonary vascular congestion has resolved. ACT 112: Negative or not required by law. Electronically signed by: Dale Day M.D. 04/11/2022 5:13 PM
--- NOTE | 2022-04-11 19:47 | Communication Note ---
Date of Service: April 11, 2022 I saw the patient in the ED. Performed HPI and physical exam. Discussed plan with attending physician. Please refer to my attending's note for more information on the patient. Resident Activity Tracking Resident Involvement: Resident Care Provided Care Provided: Adult ED
[2022-04-11] MEDS ORDERED: SODIUM CHLORIDE 0.65% NA SOLN 45 ML (OCEAN) PRN (21:33)
[2022-04-11 22:01] LABS: Iron 116 mcg/dl (35-150); Unsaturated Iron Binding Cap < 55 mcg/dl (155-355)
[2022-04-11] MEDS: FAMOTIDINE 20 MG TAB PO SCH (22:20)
[2022-04-11] MEDS: traZODone HCL 100 MG TAB PO SCH (22:23)
[2022-04-11] MEDS: HEPARIN SOD 5,000 UNIT/0.5 ML VIAL SQ SCH (22:25)
[2022-04-11] MEDS: SODIUM CHLORIDE 0.45 % 1,000 ML IV SCH (22:29)
[2022-04-11] MEDS: SODIUM BICARBONATE 8.4% 100 MEQ in WATER, STERILE 1,000 ML IV SCH (22:31)
[2022-04-11] MEDS: DEXTROSE 5% IV SCH (23:03)
[2022-04-11] MEDS: AZTREONAM IV SCH (23:03)
[2022-04-11] MEDS ORDERED: DEXTROSE 50% 50 ML SYRINGE IV PRN (23:35)
[2022-04-11] MEDS ORDERED: CARBOHYDRATES FOR HYPOGLYCEMIA PO PRN (23:35)
[2022-04-11] MEDS ORDERED: GLUCOSE 40% GEL 15 GM TUBE PO PRN (23:35)
[2022-04-11] MEDS ORDERED: GLUCOSE 10 TAB/TUBE PO PRN (23:35)
[2022-04-11] MEDS ORDERED: GLUCAGON FOR INJ 1 MG VIAL SQ PRN (23:35)
[2022-04-12 00:07] LABS: BUN Creatinine Ratio 11.4 (10-20); Calcium 8.5 mg/dl (8.5-10.1); Creatinine Clr Calc Pharmacy 7.5 ml/min; Est GFR (African American) 5.7 ml/min; Est GFR (Non-African American) 4.9 ml/min; Potassium 3.6 mmol/L (3.5-5.1)
[2022-04-12 00:19] LABS: Folate (Folic Acid) > 22.30 ng/ml (>5.38)
[2022-04-12 00:20] LABS: Vitamin B12 > 1500 pg/ml (180-914)
--- NOTE | 2022-04-12 06:20 | Electrocardiogram Report ---
Test Reason : Blood Pressure : / mmHG Vent. Rate : 080 BPM Atrial Rate : 080 BPM P-R Int : 160 ms QRS Dur : 084 ms QT Int : 392 ms P-R-T Axes : 004 040 041 degrees QTc Int : 453 ms Poor data quality, interpretation may be adversely affected Normal sinus rhythm Low voltage QRS Nonspecific T wave abnormality Abnormal ECG When compared with ECG of 12-FEB-2021 12:20, Nonspecific T wave abnormality is now Present Confirmed by Ellis Moise ([id number]) on 04/12/2022 6:20:23 AM Referred By: Confirmed By:Ellis Moise
[2022-04-12 06:38] LABS: Hematocrit (blood only) 21.1 % (34.1-44.9); Hemoglobin 6.7 g/dl (12.0-16.0); Mean Corpuscular Hemoglobin 32.2 pg (25.0-34.0); Mean Corpuscular Hgb Conc 31.8 g/dL (32.0-36.0); Mean Corpuscular Volume 101.4 fL (80.0-100.0); Mean Platelet Volume 10.1 fL (9.4-12.3); Platelet Count 255 K/uL (130-400); RDW Coefficient of Variation 14.9 % (11.5-14.5); RDW Standard Deviation 56.1 fL (36.4-46.3); Red Blood Count 2.08 M/uL (3.93-5.22); White Blood Count 8.31 K/ul (4.8-10.8)
[2022-04-12 07:09] LABS: BUN Creatinine Ratio 11.5 (10-20); Calcium 8.2 mg/dl (8.5-10.1); Est GFR (Non-African American) 5.2 ml/min; Magnesium 2.2 mg/dl (1.7-2.4); Phosphorus 5.8 mg/dl (2.5-4.9); Potassium 3.6 mmol/L (3.5-5.1)
[2022-04-12] MEDS ORDERED: SODIUM CHLORIDE 0.9% 250 ML IV PRN (07:57)
--- NOTE | 2022-04-12 08:17 | Urology Consultation ---
Date of Consultation April 12, 2022 Assessment & Plan (1) Acute kidney injury superimposed on CKD: (2) S/P ureteral stent placement: (3) Acute UTI: 67 yo F with multiple comorbidities admitted for acute on chronic kidney injury, anemia and suspected UTI. - Urology consulted for evaluation of bilateral ureteral stents and renal failure. - Patient afebrile, nontoxic. Lab work reviewed - creatinine 7.47, WBC 8.31, Hgb 6.7. - Urine and blood cultures are pending, currently on IV Daptomycin and Aztreonam - follow cultures. - Reviewed CT imaging personally and with Dr. Wallace. B/L stents are in good position. No hydronephrosis to suggest stent failure. - No plan for intervention at this time. - Maintain Fallon catheter. - Continue supportive care, antibiotics, and management per primary team. - will follow. History of Present Illness Reason for Consultation: b/l stents and renal failure Requesting Physician: Dr. Eagle Attending Physician: Cary Vega MD History of Present Illness 67 year old female with past medical history significant for urinary tract infections, indwelling bilateral ureteral stents, chronic kidney disease IV, type 2 diabetes, and history of CVA presented to the emergency department yesterday from [facility] because of lab work abnormalities including elevation of creatinine. She was admitted for acute on chronic kidney injury, anemia, and suspected UTI. On arrival she was afebrile. Lab work showed a creatinine of 8.56, WBC 8.52, and Hgb 7.2. Urinalysis notable for 3+ leukocytes, 10-30 RBCs, >30 WBCs, and 4+ bacteria. CT A/P was performed and notable for pericystic inflammation and foci of intraluminal gas, bilateral stents in place, perinephric stranding bilaterally L>R, mild to moderate left hydronephrosis, mild fullness on right, numerous stone fragments are present in the right renal collecting system, urothelial thickening is seen within the renal pelvis bilaterally, tiny foci of gas in right renal pelvis. Urine and blood cultures collected and pending. She was started on IV Daptomycin and Aztreonam. Urology consulted for bilateral stents, renal failure. She is known to our service. Last bilateral stent exchange was 01/20/22. Patient seen and examined at bedside. She is awake and sitting up in bed eating breakfast. She does not provide much meaningful history. She denies flank or abdominal pain. No nausea or vomiting. No fever or chills. Fallon intact and draining clear yellow urine with moderate sediment. Chart review: Afebrile. Lab work - Creatinine 7.47, WBC 8.31, Hgb 6.7. Urine and blood cultures pending. On IV Daptomycin and Aztreonam. Allergies Allergy/AdvReac Type Severity Reaction Status Date / Time Penicillins Allergy Severe Anaphylaxis Verified 04/11/22 17:03 cefazolin [From [facility]] Allergy Unknown Unknown Verified 04/11/22 17:03 pregabalin Allergy Unknown Unknown Verified 04/11/22 17:03 tramadol Allergy Unknown Unknown Verified 04/11/22 17:03 ertapenem AdvReac Severe See comment Verified 04/11/22 17:03 oxycodone AdvReac Unknown Unknown Verified 04/11/22 17:03 Home Medications Medication Instructions Recorded Confirmed Type cholecalciferol (vitamin D3) 125 5,000 unit PO DAILY 09/25/19 04/11/22 History mcg (5,000 unit) tablet (Vitamin D3) bupropion HCl 300 mg 24 hr tablet, 300 mg PO QAM 11/13/20 04/11/22 History extended release (Wellbutrin XL) acetaminophen 500 mg tablet 1,000 mg PO Q6H PRN Pain 12/03/20 04/11/22 History (Tylenol Extra Strength) duloxetine 60 mg capsule,delayed 60 mg PO DAILY 12/03/20 04/11/22 History release (Cymbalta) famotidine 20 mg tablet (Pepcid) 20 mg PO BID 01/24/21 04/11/22 History pantoprazole 40 mg tablet,delayed 40 mg PO BID #42 tabs 02/17/21 04/11/22 Rx release alogliptin 25 mg tablet (Nesina) 25 mg PO QAM 03/15/21 04/11/22 History bisacodyl 5 mg tablet,delayed 10 mg PO DAILY PRN Constipation 04/15/21 04/11/22 History release (Dulcolax (bisacodyl)) hydrocodone 5 mg-acetaminophen 325 1 tab PO Q12 PRN Pain 04/15/21 04/11/22 History mg tablet polyethylene glycol 3350 17 17 g PO DAILY 04/15/21 04/11/22 History gram/dose oral powder (Miralax) buspirone 10 mg tablet 20 mg PO BID 09/28/21 04/11/22 History calcium carb-mag hydrox-simeth 675 2 tab PO Q12 PRN Indigestion 09/28/21 History mg-135 mg-60 mg chewable tablet cyclobenzaprine 5 mg tablet 5 mg PO Q8 PRN Muscle Spasm 09/28/21 04/11/22 History fentanyl 25 mcg/hr transdermal 1 patch transdermal Q72H 09/28/21 04/11/22 History patch methenamine hippurate 1 gram tablet 1 g PO BID 09/28/21 04/11/22 History ondansetron 4 mg disintegrating 4 mg PO Q6H PRN Nausea 09/28/21 04/11/22 History tablet trazodone 100 mg tablet 100 mg PO HS 09/28/21 04/11/22 History cyanocobalamin (vitamin B-12) 500 500 mcg PO DAILY 01/14/22 04/11/22 History mcg tablet ropinirole 0.5 mg tablet 0.5 mg PO HS 01/14/22 04/11/22 History alogliptin 25 mg tablet 25 mg PO QAM 04/11/22 04/11/22 History duloxetine 30 mg capsule,delayed 30 mg PO DAILY 04/11/22 04/11/22 History release ferrous sulfate 325 mg (65 mg 325 mg PO DAILY 04/11/22 04/11/22 History iron) tablet folic acid 1 mg tablet 1 mg PO DAILY 04/11/22 04/11/22 History gabapentin 100 mg capsule 100 mg PO BID 04/11/22 04/11/22 History Patient History Medical History Anemia Anemia of chronic disease Calculi, ureter Chronic pain Depression with anxiety Dermatitis Diabetes mellitus type 2 in obese NIDDM Dyslipidemia Dysphagia Generalized atherosclerosis GERD (gastroesophageal reflux disease) H/O: CVA (cerebrovascular accident) History of COVID-19 05/2020> resolved per [facility] staff History of recurrent UTI (urinary tract infection) Incontinence Indwelling Fallon catheter present Lesion of bladder Metabolic encephalopathy 02/2021 Morbid obesity prison resident [facility] Osteomyelitis 2018 Overactive bladder Personal history of methicillin resistant Staphylococcus aureus Stage 5 chronic kidney disease not on chronic dialysis Ulcerative colitis Uropathy, obstructive Surgical History History of cataract surgery History of cystoscopy multiple--last 10/[address] 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: No Beliefs That Will Affect Care: None marital status: Current Living Situation: Group Home Current Living Situation Comment: [facility] Resident current occupational status: retired Other Information That Helps Us Care for You: No Feels Safe at Home: Yes Safety Concerns: Feels Safe At This Time Assistive Devices: Glasses Review of Systems Review of Systems: All systems reviewed & are unremarkable except as noted in HPI & below Physical Exam Constitutional: + obese; no acute distress Eyes: no scleral abnormality Respiratory: no respiratory distress and no labored breathing Cardiovascular: Rate/Rhythm: regular rate Gastrointestinal (Abdomen): Inspection/Auscultation: abdomen normal to inspection; abdomen not distended Percussion/Palpation: abdomen soft; abdomen nontender Musculoskeletal: Head/Neck/Chest: normocephalic and head atraumatic Neurologic: moves all extremities and awake Psychiatric: Orientation: alert and oriented to person Genitourinary: Fallon intact and draining clear yellow urine with sediment Results & Data ([facility]) Vital Signs (Past 12 Hours) Vital Signs Temp Pulse Pulse Resp BP BP BP 04/12/22 07:51 36.4 C L 76 16 102/68 04/12/22 03:14 36.5 C 81 16 95/63 L 04/12/22 00:32 65 04/11/22 21:45 81 04/11/22 21:45 04/11/22 21:45 36.4 C L 81 18 116/55 L 04/11/22 21:04 96/61 L 04/11/22 20:40 81 22 04/11/22 20:30 83 18 04/11/22 20:30 96/61 L 04/11/22 20:20 87 23 Pulse Ox O2 Del Method 04/12/22 07:51 99 Room Air 04/12/22 03:14 97 Room Air 04/12/22 00:32 04/11/22 21:45 04/11/22 21:45 Room Air 04/11/22 21:45 97 Room Air 04/11/22 21:04 04/11/22 20:40 95 04/11/22 20:30 95 04/11/22 20:30 04/11/22 20:[address] SCAN OF THE ABDOMEN AND PELVIS WITHOUT IV CONTRAST CLINICAL HISTORY: Generalized abdominal pain. Dysuria. COMPARISON STUDY: Abdominal CT dated 02/12/2021. TECHNIQUE: CT scan of the abdomen and pelvis is performed from the lung bases to the proximal femora. Images are reviewed in the axial, sagittal, and coronal planes. IV contrast was not administered for this examination. A dose lowering technique was utilized adhering to the principles of ALARA. CT DOSE: 1145.41 mGy.cm FINDINGS: Lung bases: The heart is normal in size and without pericardial effusion. The coronary arteries are densely calcified. The lung bases are clear noting bibasilar scarring/atelectasis. Liver: The unenhanced liver is normal size and heterogeneous attenuation. Mild nodularity of the hepatic surface contour suggests early morphologic changes of cirrhosis. Calcifications along the right lobe capsule are unchanged. There is no intrahepatic biliary ductal dilatation. Gallbladder: Surgically absent and clips in the gallbladder fossa. Spleen: Normal in size and attenuation. Pancreas: The unenhanced pancreas is moderately atrophic and grossly unremarkable. Adrenal glands: A 1.8 cm left adrenal adenoma is unchanged. The right adrenal gland is normal in appearance. Kidneys: The unenhanced kidneys are atrophic. Bilateral vesicoureteral stents are in place. No calcifications are identified in either ureter or along the course of the stents. There are numerous small stone fragments within the right kidney measuring up to 4 mm. No calcifications are identified in the left kidney. There is [id number] left-sided hydronephrosis. There is only mild fullness of the right renal collecting system. Urothelial thickening is seen within the renal pelvis bilaterally and involving both ureters, left greater than right. There is bilateral perinephric and periureteric stranding, again greater on the left. There are punctate foci of gas within the right renal pelvis. No contour deforming renal mass lesion is suggested on this unenhanced examination. Abdominal vasculature: The abdominal aorta is normal in course and caliber noting moderate to advanced atherosclerotic calcification. Bowel: There are scattered colonic diverticula without CT evidence of acute diverticulitis. No bowel obstruction is seen. Moderate fecal retention is noted throughout the colon. The appendix is well-visualized and normal. Peritoneum: There is no intraperitoneal free air or abdominal ascites. There are fat-containing umbilical/periumbilical hernias. There is asymmetric atrophy of the left psoas musculature. Lymphadenopathy: None. Pelvic viscera: The bladder is decompressed around a Fallon catheter and not well assessed. There are nonspecific foci of intraluminal gas as well as pericystic inflammation. The bladder contains the distal end of bilateral ureteral stents. Gas is noted within the vagina. The uterus and adnexa are normal as imaged. Skeletal structures: The skeletal structures are osteopenic. The skeletal structures are osteopenic. There is moderate lumbosacral spondylosis. Mild superior endplate compression deformities of L2, L3, and L4 are age indeterminate but new from 02/12/2021. No lytic or blastic lesions are seen. Advanced arthritic change and deformity is present in both hips. IMPRESSION: 1. The bladder is decompressed around a Fallon catheter and not well evaluated. There is pericystic inflammation. Correlate with clinical findings and urinalysis for evidence of cystitis. 2. Bilateral ureteral stents are in place. No calculi are identified in either ureter along the course of the stents. 3. Numerous stone fragments are present in the right renal collecting system. 4. There is mild to moderate left hydronephrosis. 5. Urothelial thickening is seen within the renal pelvis bilaterally and involving both ureters with surrounding inflammation. This is greater on the left. There are tiny foci of nonspecific gas within the right renal pelvis. These findings could be related to instrumentation and the presence of indwelling stents. Correlate with clinical findings and urinalysis for evidence of ascending urinary tract infections. 6. Moderate constipation. 7. There are mild and age-indeterminate superior endplate compression deformities of L2, L3, and L4. These are new from 02/12/2021. Correlate for point tenderness. Results Complete Blood Count Results: RBC 2.08 M/uL (3.93-5.22) L 04/12/22 WBC 8.31 K/ul (4.8-10.8) 04/12/22 Hgb 6.7 g/dl (12.0-16.0) L* 04/12/22 Hct 21.1 % (34.1-44.9) L 04/12/22 Plt Count 255 K/uL (130-400) 04/12/22 Results BMP Results: Sodium 135 mmol/L (136-145) L 04/12/22 Potassium 3.6 mmol/L (3.5-5.1) 04/12/22 Chloride 109 mmol/L (98-107) H 04/12/22 Carbon Dioxide 15 mmol/L (21-32) L 04/12/22 Anion Gap 11 (3-11) 04/12/22 BUN 86 mg/dl (6-23) H 04/12/22 Creatinine 7.47 mg/dl (0.6-1.2) H* 04/12/22 Glucose 64 mg/dl (70-99(Fasting)) L 04/12/22 PG Care Time/CCT Total # of Minutes Spent Total Time Spent with Patient: Total time spent is greater than 50% in coordination of care (as documented) at patient's floor/unit and/or counseling patient: Coding Level of Care Code 19127 Initial Inpt Care Lvl 2 Diagnoses Acute kidney injury superimposed on CKD N17.9; N18.9 S/P ureteral stent placement Z96.0 Acute UTI N39.0
[2022-04-12] MEDS: DEXTROSE 5% IV SCH ×3 (08:25→22:25)
[2022-04-12] MEDS: AZTREONAM IV SCH ×3 (08:25→22:25)
[2022-04-12] MEDS: FAMOTIDINE 20 MG TAB PO SCH ×2 (08:27→19:57)
[2022-04-12] MEDS: HEPARIN SOD 5,000 UNIT/0.5 ML VIAL SQ SCH ×2 (08:29→19:58)
--- NOTE | 2022-04-12 10:09 | Nephrology Consultation ---
Date of Consultation April 12, 2022 Assessment & Plan (1) SOLEDAD (acute kidney injury): Clinically consistent with prerenal physiology and suspected ATN. Non-oliguric. Electrolytes acceptable. Volume status hypovolemic. Replacement IVF is being provided. HCO3 replacement provided. Goals of care reviewed. There is no emergent indication for dialysis. Based on prior conversations, dialysis will not be considered part of the plan of care. I will follow up with the patient's daughter in this regard. Medications are appropriately dosed for kidney dysfunction. Stop 1/2 NS and NaHCO3 gtts and start infusion of 1/2 NS + NaHCO3 75 mEq @ 150 ml/hr. (2) CKD (chronic kidney disease): Baseline CKD IV-V. Approaching ESRD. Kidneys are atrophic. I would avoid cyclobenzaprine in this degree of kidney dysfunction. Dosing of alogliptin (if the medication is continued post discharge) should be limited to 6.25 mg daily. (3) Anemia: 2 units PRBC now. YUNG therapy to be coordinated post transfusion. Check iron profile with AM labs. (4) Hydronephrosis: Urology consultation pending for stent exchange. Non-oliguric. Fallon in place. (5) Acute dehydration: Goal is to maintain positive fluid balance with IVF. (6) Acute UTI: Monitor CK on daptomycin. Blood and urine culture results pending. History of Present Illness Reason for Consultation: SOLEDAD/CKD Requesting Physician: Cary Vega MD Attending Physician: Cary Vega MD History of Present Illness Debbie Hardy is a 67 year-old female with advanced progressive chronic kidney disease. She follows in the nephrology clinic with Dr. Aguilar. Debbie has CKD IV-V attributed to a notable history of SOLEDAD and obstructive nephropathy. Medical history notable for chronic cystitis and recurrent UTI. Debbie has indwelling BL ureteral stents. She presented to [facility] yesterday from [facility] with abnormal laboratory studies, notably kidney dysfunction and anemia. Evaluation notable fo r turbid urine with pH >9, +3 protein, and 10-30 RBC as well as 10-30 WBC/hpf on microscopy. No fevers or chills. Blood and urine cultures pending. Debbie has chronic debility and a history of cerebral vascular disease with reported cognitive impairment. She was alert and oriented for me but a very poor historian. We did discuss her prior conversations with Dr. Aguilar regarding dialysis and Debbie indicated that she did not want dialysis. It was not clear to me that Debbie understood what dialysis entailed or the function of her kidneys. However, she did tell me that she understood that people can from kidney dysfunction. I was advised to contact her daughter Kymberly who is the POA. Dr. Aguilar has documented prior conversations indicating that Debbie had refused dialysis when discussed in the past. Debbie has notable baseline debility. She is chronically bedbound. She reports that she has been sleeping a lot lately and appetite has been poor. She was hypoglycemic this AM. She appears very dehydrated. Creatinine has been rising since Debbie was last seen in the nephrology clinic in December. Creatinine was 4.5 mg/dL in December. It was 5.85 and 6.0 mg/dL in January/February. There is no reported evidence of GI blood loss including melena or hematochezia. Debbie denies pain. She denied any urinary symptoms. Fallon is draining cloudy urine with sediment. Urology has been consulted for st ent exchange. CT demonstrating mild to moderate hydronephrosis L>R. There is stranding and inflammation particularly involving the left kidney. CXR did not demonstrate any evidence of fluid retention. IV fluids with 1/2 NS in additional to NaHCO3 were provided overnight. Antibiotic therapy with daptomycin and Aztreonam has been provided. The patient's medical record was reviewed extensively. Allergies Allergy/AdvReac Type Severity Reaction Status Date / Time Penicillins Allergy Severe Anaphylaxis Verified 04/11/22 17:03 cefazolin [From Ancef] Allergy Unknown Unknown Verified 04/11/22 17:03 pregabalin Allergy Unknown Unknown Verified 04/11/22 17:03 tramadol Allergy Unknown Unknown Verified 04/11/22 17:03 ertapenem AdvReac Severe See comment Verified 04/11/22 17:03 oxycodone AdvReac Unknown Unknown Verified 04/11/22 17:03 Home Medications Medication Instructions Recorded Confirmed Type cholecalciferol (vitamin D3) 125 5,000 unit PO DAILY 09/25/19 04/11/22 History mcg (5,000 unit) tablet (Vitamin D3) bupropion HCl 300 mg 24 hr tablet, 300 mg PO QAM 11/13/20 04/11/22 History extended release (Wellbutrin XL) acetaminophen 500 mg tablet 1,000 mg PO Q6H PRN Pain 12/03/20 04/11/22 History (Tylenol Extra Strength) duloxetine 60 mg capsule,delayed 60 mg PO DAILY 12/03/20 04/11/22 History release (Cymbalta) famotidine 20 mg tablet (Pepcid) 20 mg PO BID 01/24/21 04/11/22 History pantoprazole 40 mg tablet,delayed 40 mg PO BID #42 tabs 02/17/21 04/11/22 Rx release alogliptin 25 mg tablet (Nesina) 25 mg PO QAM 03/15/21 04/11/22 History bisacodyl 5 mg tablet,delayed 10 mg PO DAILY PRN Constipation 04/15/21 04/11/22 History release (Dulcolax (bisacodyl)) hydrocodone 5 mg-acetaminophen 325 1 tab PO Q12 PRN Pain 04/15/21 04/11/22 History mg tablet polyethylene glycol 3350 17 17 g PO DAILY 04/15/21 04/11/22 History gram/dose oral powder (Miralax) buspirone 10 mg tablet 20 mg PO BID 09/28/21 04/11/22 History calcium carb-mag hydrox-simeth 675 2 tab PO Q12 PRN Indigestion 09/28/21 04/11/22 History mg-135 mg-60 mg chewable tablet cyclobenzaprine 5 mg tablet 5 mg PO Q8 PRN Muscle Spasm 09/28/21 04/11/22 History fentanyl 25 mcg/hr transdermal 1 patch transdermal Q72H 09/28/21 04/11/22 History patch methenamine hippurate 1 gram tablet 1 g PO BID 09/28/21 04/11/22 History ondansetron 4 mg disintegrating 4 mg PO Q6H PRN Nausea 09/28/21 04/11/22 History tablet trazodone 100 mg tablet 100 mg PO HS 09/28/21 04/11/22 History cyanocobalamin (vitamin B-12) 500 500 mcg PO DAILY 01/14/22 04/11/22 History mcg tablet ropinirole 0.5 mg tablet 0.5 mg PO HS 01/14/22 04/11/22 History alogliptin 25 mg tablet 25 mg PO QAM 04/11/22 04/11/22 History duloxetine 30 mg capsule,delayed 30 mg PO DAILY 04/11/22 04/11/22 History release ferrous sulfate 325 mg (65 mg 325 mg PO DAILY 04/11/22 04/11/22 History iron) tablet folic acid 1 mg tablet 1 mg PO DAILY 04/11/22 04/11/22 History gabapentin 100 mg capsule 100 mg PO BID 04/11/22 04/11/22 History Patient History Medical History Anemia Anemia of chronic disease Calculi, ureter Chronic pain Depression with anxiety Dermatitis Diabetes mellitus type 2 in obese NIDDM Dyslipidemia Dysphagia Generalized atherosclerosis GERD (gastroesophageal reflux disease) H/O: CVA (cerebrovascular accident) History of COVID-19 05/2020> resolved per [facility] staff History of recurrent UTI (urinary tract infection) Incontinence Indwelling Fallon catheter present Lesion of bladder Metabolic encephalopathy 02/2021 Morbid obesity assisted resident [facility] Osteomyelitis 2018 Overactive bladder Personal history of methicillin resistant Staphylococcus aureus Stage 5 chronic kidney disease not on chronic dialysis Ulcerative colitis Uropathy, obstructive Surgical History History of cataract surgery History of cystoscopy multiple--last 10/2021 @ [facility] History of esophagogastroduodenoscopy (EGD) Hx of surgical procedure presence of urogenital implants Presence urogenital implant S/P cholecystectomy S/P ureteral stent placement Family History Mother , age 79 of esophageal cancer Hypertension Father , in mid 60s of an [place] Myocardial infarction Social History Smoking Status: Former smoker Tobacco Type: Cigarettes Age Quit Using Tobacco: 48; Second Hand Exposure: No; Hx Alcohol Use: No Hx Substance Use: No Preferred Language: Portuguese Communication Ability: Effective Visual Impairment: No Limitations Horse Shoer Required: No Beliefs That Will Affect Care: None marital status: Current Living Situation: Penit[facility]iary Current Living Situation Comment: [facility] Resident current occupational status: retired Other Information That Helps Us Care for You: No Feels Safe at Home: Yes Safety Concerns: Feels Safe At This Time Assistive Devices: Glasses Review of Systems Review of Systems: All systems reviewed & are unremarkable except as noted in HPI & below Constitutional: + fatigue and + daytime sleepiness; no fever and no chills Integumentary: + dry skin and + pruritus Physical Exam Constitutional: well developed and + morbidly obese; no acute distress Eyes: + anicteric sclerae; no corneal abnormality ENMT: Mouth: + dry oral mucous membranes; no oral mucosal abnormality Neck: normal visual inspection and trachea midline Respiratory: normal respiratory effort Auscultation: lungs clear to auscultation bilaterally Cardiovascular: Rate/Rhythm: regular rate Heart Sounds: normal S1 and normal S2 Extremities: + edema (dependent edema, soft pitting) Musculoskeletal: Extremities: no cyanosis and no clubbing Skin: + turgor decreased, + lesion and + dry skin Neurologic: Motor/Sensory: no tremor and no asterixis Psychiatric: Orientation: alert and oriented x 3 Genitourinary: Fallon draining concentrated, cloudy urine with sediment Results & Data ([facility]) Vital Signs (Past 12 Hours) Vital Signs Temp Pulse Pulse Resp BP BP Pulse Ox 04/12/22 07:51 36.4 C L 76 16 102/68 99 04/12/22 03:14 36.5 C 81 16 95/63 L 97 04/12/22 00:32 65 O2 Del Method 04/12/22 07:51 Room Air 04/12/22 03:14 Room Air 04/12/22 00:32 Laboratory Results Laboratory Results - last 24 hr 04/11/22 04/11/22 04/11/22 15:36 15:36 15:36 WBC 9.46 RBC 2.30 L Hgb 7.3 L Hct 23.4 L MCV 101.7 H MCH 31.7 MCHC 31.2 L RDW Std Deviation 56.4 H RDW Coeff of Katina 15.1 H Plt Count 285 MPV 10.1 Immature Gran % (Auto) 0.5 Neut % (Auto) 71.1 Lymph % (Auto) 18.4 Simpson % (Auto) 6.0 Eos % (Auto) 3.3 Baso % (Auto) 0.7 Neut # (Auto) 6.72 H Lymph # (Auto) 1.74 Simpson # (Auto) 0.57 Eos # (Auto) 0.31 Baso # (Auto) 0.07 Immature Gran # (Auto) 0.05 H Polychromasia 1+ Tear Drop Cells 1+ Sodium 136 Potassium 4.0 Chloride 108 H Carbon Dioxide 14 L Anion Gap 14 H BUN 93 H Creatinine 8.30 H* Est Cr Clr Drug Dosing 7.1 Est GFR ( Amer) 5.3 Est GFR (Non-Af Amer) 4.6 BUN/Creatinine Ratio 11.2 Glucose 67 L POC Glucose Estimat Average Glucose Hemoglobin A1c Lactate Calcium 8.8 Phosphorus Magnesium 2.4 Iron Unsaturated IBC Total Bilirubin 0.7 AST 7 L ALT 5 L Alkaline Phosphatase 146 H Troponin I High Sens 4.6 Total Protein 7.1 Albumin 3.2 L Globulin 3.9 Albumin/Globulin Ratio 0.8 L Vitamin B12 Folate TSH 2.468 Urine Color Urine Appearance Urine pH Ur Specific [place] Urine Protein Urine Glucose (UA) Urine Ketones Urine Blood Urine Nitrite Urine Bilirubin Urine Urobilinogen Ur Leukocyte Esterase Urine RBC Urine WBC Ur Epithelial Cells Amorphous Sediment Urine Bacteria Urine Mucus SARS-CoV-2, RNA, NAAT Blood Type Antibody Screen Crossmatch 04/11/22 04/11/22 04/11/22 15:36 15:55 16:46 WBC RBC Hgb Hct MCV MCH MCHC RDW Std Deviation RDW Coeff of Katina Plt Count MPV Immature Gran % (Auto) Neut % (Auto) Lymph % (Auto) Simpson % (Auto) Eos % (Auto) Baso % (Auto) Neut # (Auto) Lymph # (Auto) Simpson # (Auto) Eos # (Auto) Baso # (Auto) Immature Gran # (Auto) Polychromasia Tear Drop Cells Sodium Potassium Chloride Carbon Dioxide Anion Gap BUN Creatinine Est Cr Clr Drug Dosing Est GFR ( Amer) Est GFR (Non-Af Amer) BUN/Creatinine Ratio Glucose POC Glucose Estimat Average Glucose Hemoglobin A1c Lactate 0.4 Calcium Phosphorus Magnesium Iron 116 Unsaturated IBC < 55 L Total Bilirubin AST ALT Alkaline Phosphatase Troponin I High Sens Total Protein Albumin Globulin Albumin/Globulin Ratio Vitamin B12 Folate TSH Urine Color Dark Yellow Urine Appearance Turbid A Urine pH >= 9.0 H Ur Specific [place] 1.020 Urine Protein 3+ H Urine Glucose (UA) Negative Urine Ketones Negative Urine Blood 2+ H Urine Nitrite Negative Urine Bilirubin Negative Urine Urobilinogen Negative Ur Leukocyte Esterase 3+ H Urine RBC 10-30 H Urine WBC 10-30 H Ur Epithelial Cells 0-5 Amorphous Sediment Present A Urine Bacteria 3+ H Urine Mucus Present A SARS-CoV-2, RNA, NAAT Blood Type Antibody Screen Crossmatch 04/11/22 04/11/22 04/11/22 16:50 22:42 22:42 WBC RBC Hgb Hct MCV MCH MCHC RDW Std Deviation RDW Coeff of Katina Plt Count MPV Immature Gran % (Auto) Neut % (Auto) Lymph % (Auto) Simpson % (Auto) Eos % (Auto) Baso % (Auto) Neut # (Auto) Lymph # (Auto) Simpson # (Auto) Eos # (Auto) Baso # (Auto) Immature Gran # (Auto) Polychromasia Tear Drop Cells Sodium 136 Potassium 3.6 Chloride 110 H Carbon Dioxide 14 L Anion Gap 12 H BUN 90 H Creatinine 7.87 H* D Est Cr Clr Drug Dosing 7.5 Est GFR ( Amer) 5.7 Est GFR (Non-Af Amer) 4.9 BUN/Creatinine Ratio 11.4 Glucose 75 POC Glucose Estimat Average Glucose Hemoglobin A1c Lactate Calcium 8.5 Phosphorus Magnesium Iron Unsaturated IBC Total Bilirubin AST ALT Alkaline Phosphatase Troponin I High Sens Total Protein Albumin Globulin Albumin/Globulin Ratio Vitamin B12 Folate TSH Urine Color Urine Appearance Urine pH Ur Specific [place] Urine Protein Urine Glucose (UA) Urine Ketones Urine Blood Urine Nitrite Urine Bilirubin Urine Urobilinogen Ur Leukocyte Esterase Urine RBC Urine WBC Ur Epithelial Cells Amorphous Sediment Urine Bacteria Urine Mucus SARS-CoV-2, RNA, NAAT NEGATIVE Blood Type A Positive Antibody Screen NEGATIVE Crossmatch See Detail 04/11/22 04/12/22 04/12/22 22:50 06:00 06:00 WBC 8.31 RBC 2.08 L Hgb 6.7 L* Hct 21.1 L MCV 101.4 H MCH 32.2 MCHC 31.8 L RDW Std Deviation 56.1 H RDW Coeff of Katina 14.9 H Plt Count 255 MPV 10.1 Immature Gran % (Auto) Neut % (Auto) Lymph % (Auto) Simpson % (Auto) Eos % (Auto) Baso % (Auto) Neut # (Auto) Lymph # (Auto) Simpson # (Auto) Eos # (Auto) Baso # (Auto) Immature Gran # (Auto) Polychromasia Tear Drop Cells Sodium 135 L Potassium 3.6 Chloride 109 H Carbon Dioxide 15 L Anion Gap 11 BUN 86 H Creatinine 7.47 H* D Est Cr Clr Drug Dosing 8.0 Est GFR ( Amer) 6.0 Est GFR (Non-Af Amer) 5.2 BUN/Creatinine Ratio 11.5 Glucose 64 L POC Glucose Estimat Average Glucose Hemoglobin A1c Lactate Calcium 8.2 L Phosphorus 5.8 H Magnesium 2.2 Iron Unsaturated IBC Total Bilirubin AST ALT Alkaline Phosphatase Troponin I High Sens Total Protein Albumin Globulin Albumin/Globulin Ratio Vitamin B12 > 1500 H Folate > 22.30 TSH Urine Color Urine Appearance Urine pH Ur Specific [place] Urine Protein Urine Glucose (UA) Urine Ketones Urine Blood Urine Nitrite Urine Bilirubin Urine Urobilinogen Ur Leukocyte Esterase Urine RBC Urine WBC Ur Epithelial Cells Amorphous Sediment Urine Bacteria Urine Mucus SARS-CoV-2, RNA, NAAT Blood Type Antibody Screen Crossmatch 04/12/22 04/12/22 06:00 07:42 WBC RBC Hgb Hct MCV MCH MCHC RDW Std Deviation RDW Coeff of Katina Plt Count MPV Immature Gran % (Auto) Neut % (Auto) Lymph % (Auto) Simpson % (Auto) Eos % (Auto) Baso % (Auto) Neut # (Auto) Lymph # (Auto) Simpson # (Auto) Eos # (Auto) Baso # (Auto) Immature Gran # (Auto) Polychromasia Tear Drop Cells Sodium Potassium Chloride Carbon Dioxide Anion Gap BUN Creatinine Est Cr Clr Drug Dosing Est GFR ( Amer) Est GFR (Non-Af Amer) BUN/Creatinine Ratio Glucose POC Glucose 79 Estimat Average Glucose Pending Hemoglobin A1c Pending Lactate Calcium Phosphorus Magnesium Iron Unsaturated IBC Total Bilirubin AST ALT Alkaline Phosphatase Troponin I High Sens Total Protein Albumin Globulin Albumin/Globulin Ratio Vitamin B12 Folate TSH Urine Color Urine Appearance Urine pH Ur Specific [place] Urine Protein Urine Glucose (UA) Urine Ketones Urine Blood Urine Nitrite Urine Bilirubin Urine Urobilinogen Ur Leukocyte Esterase Urine RBC Urine WBC Ur Epithelial Cells Amorphous Sediment Urine Bacteria Urine Mucus SARS-CoV-2, RNA, NAAT Blood Type Antibody Screen Crossmatch Diagnostic Findings CT SCAN OF THE ABDOMEN AND PELVIS WITHOUT IV CONTRAST FINDINGS: Lung bases: The heart is normal in size and without pericardial effusion. The coronary arteries are densely calcified. The lung bases are clear noting bibasilar scarring/atelectasis. Liver: The unenhanced liver is normal size and heterogeneous attenuation. Mild nodularity of the hepatic surface contour suggests early morphologic changes of cirrhosis. Calcifications along the right lobe capsule are unchanged. There is no intrahepatic biliary ductal dilatation. Gallbladder: Surgically absent and clips in the gallbladder fossa. Spleen: Normal in size and attenuation. Pancreas: The unenhanced pancreas is moderately atrophic and grossly unremarkable. Adrenal glands: A 1.8 cm left adrenal adenoma is unchanged. The right adrenal gland is normal in appearance. Kidneys: The unenhanced kidneys are atrophic. Bilateral vesicoureteral stents are in place. No calcifications are identified in either ureter or along the course of the stents. There are numerous small stone fragments within the right kidney measuring up to 4 mm. No calcifications are identified in the left kidney. There is [id number] left-sided hydronephrosis. There is only mild fullness of the right renal collecting system. Urothelial thickening is seen within the renal pelvis bilaterally and involving both ureters, left greater than right. There is bilateral perinephric and periureteric stranding, again greater on the left. There are punctate foci of gas within the right renal pelvis. No contour deforming renal mass lesion is suggested on this unenhanced examination. Abdominal vasculature: The abdominal aorta is normal in course and caliber noting moderate to advanced atherosclerotic calcification. Bowel: There are scattered colonic diverticula without CT evidence of acute diverticulitis. No bowel obstruction is seen. Moderate fecal retention is noted throughout the colon. The appendix is well-visualized and normal. Peritoneum: There is no intraperitoneal free air or abdominal ascites. There are fat-containing umbilical/periumbilical hernias. There is asymmetric atrophy of the left psoas musculature. Lymphadenopathy: None. Pelvic viscera: The bladder is decompressed around a Fallon catheter and not well assessed. There are nonspecific foci of intraluminal gas as well as pericystic inflammation. The bladder contains the distal end of bilateral ureteral stents. Gas is noted within the vagina. The uterus and adnexa are normal as imaged. Skeletal structures: The skeletal structures are osteopenic. The skeletal structures are osteopenic. There is moderate lumbosacral spondylosis. Mild superior endplate compression deformities of L2, L3, and L4 are age indeterminate but new from 02/12/2021. No lytic or blastic lesions are seen. Advanced arthritic change and deformity is present in both hips. IMPRESSION: 1. The bladder is decompressed around a Fallon catheter and not well evaluated. There is pericystic inflammation. Correlate with clinical findings and urinalysis for evidence of cystitis. 2. Bilateral ureteral stents are in place. No calculi are identified in either ureter along the course of the stents. 3. Numerous stone fragments are present in the right renal collecting system. 4. There is mild to moderate left hydronephrosis. 5. Urothelial thickening is seen within the renal pelvis bilaterally and involving both ureters with surrounding inflammation. This is greater on the left. There are tiny foci of nonspecific gas within the right renal pelvis. These findings could be related to instrumentation and the presence of indwelling stents. Correlate with clinical findings and urinalysis for evidence of ascending urinary tract infections. 6. Moderate constipation. 7. There are mild and age-indeterminate superior endplate compression deformities of L2, L3, and L4. These are new from 02/12/2021. Correlate for point tenderness. PG Care Time/CCT Total # of Minutes Spent Total Time Spent with Patient: Total time spent is greater than 50% in coordination of care (as documented) at patient's floor/unit and/or counseling patient: Coding Level of Care Code 08715 Inpt Consult Level 4 Diagnoses SOLEDAD (acute kidney injury) N17.9 CKD (chronic kidney disease) N18.4 Chronic kidney disease stage: stage 4 (severe) Anemia D64.9 Anemia type: unspecified type Hydronephrosis N13.30 Hydronephrosis type: unspecified Acute dehydration E86.0 Acute UTI N39.0 (1) Anemia Anemia type: unspecified type Qualified Code(s): D64.9 - Anemia, unspecified (2) Hydronephrosis Hydronephrosis type: unspecified Qualified Code(s): N13.30 - Unspecified hydronephrosis (3) CKD (chronic kidney disease) Chronic kidney disease stage: stage 4 (severe) Qualified Code(s): N18.4 - Chronic kidney disease, stage 4 (severe)
[2022-04-12] MEDS: SODIUM CHLORIDE 0.45 % 1,000 ML IV SCH (10:15)
[2022-04-12] MEDS: SODIUM BICARBONATE 8.4% 100 MEQ in WATER, STERILE 1,000 ML IV SCH (10:16)
[2022-04-12] MEDS ORDERED: D5W IV SCH (10:30)
[2022-04-12] MEDS ORDERED: SODIUM BICARBONATE IV SCH (10:30)
[2022-04-12] MEDS ORDERED: [UNRECOGNIZED DRUG - OTHER] IV SCH (10:30)
--- NOTE | 2022-04-12 13:41 | Hospitalist Progress Note ---
Date of Service April 12, 2022 Assessment & Plan (1) Fahdu-bw-eubogja kidney injury: Plan: Most likely prerenal due to dehydration, although patient has some baseline severe chronic kidney disease, stage IV Has been started on IV hydration and bicarbonate replacement. Patient has a history of previous stents, which her in place, per urology Nephrology on consult, appreciate recommendations (2) UTI (urinary tract infection): Plan: Given the patient's multiple allergies and renal failure plus the results of her past infections being Enterococcus and Providencia plus distant history of ESBL E. coli and Pseudomonas daptomycin and aztreonam were started in the emergency department and will be continued Cultures pending (3) Anemia: Plan: Acute on chronic anemia. Patient denies any blood in stool. Hemoglobin 6.7 today, will transfuse with 2 unit of blood (4) Chronic kidney disease, stage 4 (severe): Plan: Patient has severe previous kidney disease and discussions with nephrology or that the family did not wish to pursue dialysis. Discussed with the daughter and she reiterated that the patient does not want hemodialysis (5) Diabetes mellitus type 2 in obese: Plan: Patient's had a tremendous weight loss. At her last admission she had a BMI of 44 now she is 30 She takes alogliptin IDD P4 inhibitor this dose that should be severely reduced with her renal dysfunction (6.25) Subsequently be held and insulin will be used cautiously (6) Depression with anxiety: Plan: There was concerns in the past for polypharmacy patient remain on trazodone 100 at bedtime( no data on renal imparement dosing) Cymbalta 120, BuSpar 20, these should not be used in Cr Cl <30 according to [facility] will hold Wellbutrin 300 is renally excetred but no data exixts, will reduce the dose (7) DVT prophylaxis: Plan: heparin Plan Continue hospitalization, hopefully discharge in next 48 hours Admission and Anticipated Discharge Date Admission Date: April 11, 2022 Subjective Patient seen and examined today, her cognition waxes and wanes, but she was mostly confused Review of Systems Review of Systems: Unreliable due to dementia Physical Exam Physical Exam: The patient is awake, alert and confused HEENT--PERRL, EOMI, mucous membranes and oropharynx mildly dry Neck--supple. No JVD. No bruits. Thyroid normal, trachea midline, no adenopathy. Heart--normal S1 and S2. No murmurs, rubs or gallops. Lungs--clear bilaterally, no respiratory distress, no accessory muscle use. Abdomen--normal bowel sounds and soft. Mild epigastric and left sided abdominal pain Extremities--no cyanosis or clubbing. No edema. Dermatologic--normal skin turgor, normal color, no abnormal lymph nodes, no rash. Neurologic--cranial nerves II through XII grossly intact. Rheumatologic--normal range of motion. Psychiatric--normal affect. Results & Data Results & Data ([facility]) Vital Signs (Past 12 Hours) Vital Signs Temp Pulse Pulse Resp BP BP BP 04/12/22 13:24 98.2 F 83 83/58 L 04/12/22 11:21 98.1 F 78 12 100/65 04/12/22 07:51 97.5 F L 76 16 102/68 04/12/22 03:14 97.7 F 81 16 95/63 L Pulse Ox O2 Del Method 04/12/22 13:24 96 04/12/22 11:21 97 Room Air 04/12/22 07:51 99 Room Air 04/12/22 03:14 97 Room Air PG Care Time/CCT Total # of Minutes Spent Total Time Spent with Patient: Total time spent is greater than 50% in coordination of care (as documented) at patient's floor/unit and/or counseling patient: Coding Level of Care Code 01957 Subseq Hosp Care Lvl 2 Diagnoses Xuypb-fo-jdjbldw kidney injury N17.9; N18.9 UTI (urinary tract infection) N39.0 Anemia D64.9 Anemia type: unspecified type Chronic kidney disease, stage 4 (severe) N18.4 Diabetes mellitus type 2 in obese E11.69; E66.9 Depression with anxiety F41.8 DVT prophylaxis Z29.9 Time Spent (min) 35 (1) Anemia Anemia type: unspecified type Qualified Code(s): D64.9 - Anemia, unspecified
[2022-04-12] MEDS ORDERED: DAPTOmycin 275 MG in SYRINGE 0 ML IV SCH (16:00)
[2022-04-12] MEDS: traZODone HCL 100 MG TAB PO SCH (19:58)
[2022-04-12] MEDS: SODIUM CHLORIDE 0.45 % 1,000 ML, SODIUM BICARBONATE 8.4% 75 ML IV SCH (21:03)
[2022-04-13] MEDS: SODIUM CHLORIDE 0.45 % 1,000 ML, SODIUM BICARBONATE 8.4% 75 ML IV SCH ×2 (07:28→18:33)
[2022-04-13 07:37] LABS: BUN Creatinine Ratio 12.4 (10-20); Calcium 8.1 mg/dl (8.5-10.1); Creatinine Clr Calc Pharmacy 9.1 ml/min; Est GFR (African American) 7.1 ml/min; Est GFR (Non-African American) 6.1 ml/min; Phosphorus 5.7 mg/dl (2.5-4.9); Potassium 3.4 mmol/L (3.5-5.1)
[2022-04-13 07:42] LABS: Hematocrit (blood only) 28.8 % (34.1-44.9); Hemoglobin 9.6 g/dl (12.0-16.0); Mean Corpuscular Hemoglobin 32.2 pg (25.0-34.0); Mean Corpuscular Hgb Conc 33.3 g/dL (32.0-36.0); Mean Corpuscular Volume 96.6 fL (80.0-100.0); Mean Platelet Volume 10.3 fL (9.4-12.3); Platelet Count 218 K/uL (130-400); RDW Coefficient of Variation 14.6 % (11.5-14.5); RDW Standard Deviation 51.5 fL (36.4-46.3); Red Blood Count 2.98 M/uL (3.93-5.22); White Blood Count 8.19 K/ul (4.8-10.8)
[2022-04-13 07:50] LABS: Ferritin 494.5 ng/ml (8-388)
[2022-04-13 08:13] LABS: Iron 101 mcg/dl (35-150); Unsaturated Iron Binding Cap < 55 mcg/dl (155-355)
[2022-04-13] MEDS: FAMOTIDINE 20 MG TAB PO SCH ×2 (08:23→20:25)
[2022-04-13] MEDS: HEPARIN SOD 5,000 UNIT/0.5 ML VIAL SQ SCH ×2 (08:23→20:25)
[2022-04-13] MEDS: AZTREONAM IV SCH ×2 (09:11→15:35)
[2022-04-13] MEDS: DEXTROSE 5% IV SCH ×2 (09:11→15:35)
[2022-04-13] MEDS ORDERED: POTASSIUM CHLORIDE CRTAB 20 MEQ TABCR PO STA (09:26)
[2022-04-13] MEDS ORDERED: IRON SUCROSE 200 MG in 0.9 % SODIUM CHLORIDE 100 ML IV ONE (09:30)
[2022-04-13] MEDS ORDERED: EPOETIN ALFA 10,000 UNITS/ML VIAL IV ONE (09:30)
--- NOTE | 2022-04-13 09:59 | Nephrology Progress Note ---
Date of Service April 13, 2022 Assessment & Plan (1) SOLEDAD (acute kidney injury): Plan: Clinically consistent with prerenal physiology and suspected ATN. Non-oliguric. Electrolytes acceptable. Volume status hypovolemic. Replacement IVF is being provided. Continue 1/2 NS + NaHCO3 @ 125 ml/hr. I met with Debbie and her daughter (Kymberly) yesterday afternoon. We had a long conversation regarding goals of care and prognosis. Debbie and Kymberly were in agreement that dialysis will not be considered part of the overall plan of care. They are primarily focused on keeping Debbie comfortable. Medications are appropriately dosed for kidney dysfunction. (2) CKD (chronic kidney disease): Plan: Baseline CKD IV-V. Approaching ESRD. Kidneys are atrophic. Goals of care reviewed. Dialysis will not be considered part of the overall plan of care. If kidney dysfunction continues to decline, plan is to transition to palliative management. (3) Anemia: Plan: 2 units PRBC provided yesterday. BJ noted. Venofer 200 mg IV today. Epogen 36567 units x 1 dose today. (4) Hydronephrosis: Plan: Plan of care reviewed with urology. No intervention at this time. Fallon in place. (5) Acute dehydration: Plan: Goal is to maintain positive fluid balance with IVF. (6) Acute UTI: Plan: Blood culture NGTD. Urine + GNR. Monitor CK on daptomycin. Admission and Anticipated Discharge Date Admission Date: April 11, 2022 Subjective No acute events overnight. Debbie reports feeling very tired this AM. Confusion reported. Oriented to person and place. Denies pain. No fevers or chills. Appetite poor. Review of Systems Review of Systems: All systems reviewed & are unremarkable except as noted in HPI & below Physical Exam Constitutional: well developed and + morbidly obese; no acute distress Eyes: + anicteric sclerae; no corneal abnormality ENMT: Mouth: + dry oral mucous membranes; no oral mucosal abnormality Neck: normal visual inspection and trachea midline Respiratory: normal respiratory effort Auscultation: lungs clear to auscultation bilaterally Cardiovascular: Rate/Rhythm: regular rate Heart Sounds: normal S1 and normal S2 Extremities: + edema (dependent edema, soft pitting) Musculoskeletal: Extremities: no cyanosis and no clubbing Skin: + turgor decreased, + lesion and + dry skin Neurologic: Motor/Sensory: no tremor and no asterixis Psychiatric: Orientation: alert and oriented x 3 Results & Data ([facility]) Vital Signs (Past 12 Hours) Vital Signs Temp Pulse Pulse Resp BP Pulse Ox O2 Del Method 04/13/22 07:08 36.6 C 76 20 92/56 L 99 Room Air 04/13/22 04:00 36.6 C 71 16 109/72 98 Room Air 04/12/22 23:50 36.8 C 81 16 98/63 L 98 Room Air 04/12/22 23:17 73 04/12/22 23:04 Room Air Laboratory Results Laboratory Results - last 24 hr 04/11/22 04/12/22 04/12/22 22:42 06:00 11:14 WBC RBC Hgb Hct MCV MCH MCHC RDW Std Deviation RDW Coeff of Katina Plt Count MPV Sodium Potassium Chloride Carbon Dioxide Anion Gap BUN Creatinine Est Cr Clr Drug Dosing Est GFR ( Amer) Est GFR (Non-Af Amer) BUN/Creatinine Ratio Glucose POC Glucose 87 Hemoglobin A1c TNP Hgb A1c Pathologist Com Pending Calcium Phosphorus Magnesium Iron TIBC Unsaturated IBC Transferrin % Sat Ferritin Blood Type A Positive Antibody Screen NEGATIVE Crossmatch See Detail 04/12/22 04/12/22 04/13/22 16:10 20:47 06:15 WBC 8.19 RBC 2.98 L Hgb 9.6 L D Hct 28.8 L MCV 96.6 MCH 32.2 MCHC 33.3 RDW Std Deviation 51.5 H RDW Coeff of Katina 14.6 H Plt Count 218 MPV 10.3 Sodium Potassium Chloride Carbon Dioxide Anion Gap BUN Creatinine Est Cr Clr Drug Dosing Est GFR ( Amer) Est GFR (Non-Af Amer) BUN/Creatinine Ratio Glucose POC Glucose 81 90 Hemoglobin A1c Hgb A1c Pathologist Com Calcium Phosphorus Magnesium Iron TIBC Unsaturated IBC Transferrin % Sat Ferritin Blood Type Antibody Screen Crossmatch 04/13/22 04/13/22 04/13/22 06:15 06:15 07:28 WBC RBC Hgb Hct MCV MCH MCHC RDW Std Deviation RDW Coeff of Katina Plt Count MPV Sodium 137 Potassium 3.4 L Chloride 108 H Carbon Dioxide 20 L Anion Gap 9 BUN 81 H Creatinine 6.53 H* D Est Cr Clr Drug Dosing 9.1 Est GFR ( Amer) 7.1 Est GFR (Non-Af Amer) 6.1 BUN/Creatinine Ratio 12.4 Glucose 66 L POC Glucose 81 Hemoglobin A1c Hgb A1c Pathologist Com Calcium 8.1 L Phosphorus 5.7 H Magnesium 2.0 Iron 101 TIBC TNP Unsaturated IBC < 55 L Transferrin % Sat TNP Ferritin 494.5 H Blood Type Antibody Screen Crossmatch PG Care Time/CCT Total # of Minutes Spent Total Time Spent with Patient: Total time spent is greater than 50% in coordination of care (as documented) at patient's floor/unit and/or counseling patient: Coding Level of Care Code 44986 Subseq Hosp Care Lvl 3 Diagnoses SOLEDAD (acute kidney injury) N17.9 CKD (chronic kidney disease) N18.4 Chronic kidney disease stage: stage 4 (severe) Anemia D64.9 Anemia type: unspecified type Hydronephrosis N13.30 Hydronephrosis type: unspecified Acute dehydration E86.0 Acute UTI N39.0 (1) CKD (chronic kidney disease) Chronic kidney disease stage: stage 4 (severe) Qualified Code(s): N18.4 - Chronic kidney disease, stage 4 (severe) (2) Anemia Anemia type: unspecified type Qualified Code(s): D64.9 - Anemia, unspecified (3) Hydronephrosis Hydronephrosis type: unspecified Qualified Code(s): N13.30 - Unspecified hydronephrosis
[2022-04-13 10:31] LABS: Estimated Average Glucose 97 mg/dl
--- NOTE | 2022-04-13 11:19 | Urology Progress Note ---
Date of Service April 13, 2022 Assessment & Plan (1) S/P ureteral stent placement: (2) Acute UTI: (3) SOLEDAD (acute kidney injury): Plan: 67 yo F with multiple comorbidities admitted for acute on chronic kidney injury, anemia and suspected UTI. - She remains afebrile. - Lab work reviewed - creatinine 6.53, WBC 8.19, Hgb 9.6 today after 2 units of PRBCs. - Preliminary urine culture showing Providencia stuartii, Probable Pseudomonas, and Gram negative bacilli. - Blood cultures showing no growth x 24 hours. - She is on IV Aztreonam. Daptomycin discontinued today. Follow cultures and narrow per sensitivity data. - Case discussed with Dr. Tonye, patient's primary urologist. - She is due for her regularly scheduled stent exchange soon. Given her recurrent infections and comorbidities, will plan to exchange bilateral ureteral stents during her admission while she is on IV antibiotics and medically optimized. - Plan for cystoscopy and bilateral stent exchange tomorrow with Dr. Toney presuming she remains clinically stable and antibiotic coverage has been adequate as culture data finalizes. - She is agreeable to the plan, but would like this to be discussed with her daughter this evening. - Dr. Toney will discuss plan of care with patient's daughter. - Case discussed with hospital medicine. - Will make NPO at midnight and reassess in AM. - will follow. Admission and Anticipated Discharge Date Admission Date: April 11, 2022 Subjective Patient seen at bedside. No acute issues overnight. She is awake and resting in bed. Denies flank or abdominal pain. Fallon intact and draining clear yellow urine. Reports poor appetite and nausea. No fever or chills. Review of Systems Constitutional: as per Subjective / HPI Gastrointestinal: as per Subjective / HPI Genitourinary: as per Subjective / HPI Physical Exam Constitutional: + morbidly obese; no acute distress Eyes: no scleral abnormality Respiratory: no respiratory distress and no labored breathing Cardiovascular: Rate/Rhythm: regular rate Gastrointestinal (Abdomen): Inspection/Auscultation: abdomen normal to inspection; abdomen not distended Percussion/Palpation: abdomen soft; abdomen nontender Musculoskeletal: Head/Neck/Chest: normocephalic and head atraumatic Neurologic: moves all extremities and awake Psychiatric: Orientation: alert and oriented to person Genitourinary: Fallon intact and draining clear yellow urine Results & Data ([facility]) Vital Signs (Past 12 Hours) Vital Signs Temp Pulse Resp BP Pulse Ox O2 Del Method 04/13/22 10:30 36.7 C 80 20 109/62 95 Room Air 04/13/22 07:08 36.6 C 76 20 92/56 L 99 Room Air 04/13/22 04:00 36.6 C 71 16 109/72 98 Room Air 04/12/22 23:50 36.8 C 81 16 98/63 L 98 Room Air PG Care Time/CCT Total # of Minutes Spent Total Time Spent with Patient: Total time spent is greater than 50% in coordination of care (as documented) at patient's floor/unit and/or counseling patient: Coding Level of Care Code 75010 Subseq Hosp Care Lvl 2 Diagnoses S/P ureteral stent placement Z96.0 Acute UTI N39.0 SOLEDAD (acute kidney injury) N17.9
--- NOTE | 2022-04-13 12:00 | Hospitalist Progress Note ---
Date of Service April 13, 2022 Assessment & Plan (1) Izylz-yu-pjwfwgo kidney injury: Plan: Most likely prerenal due to dehydration, although patient has some baseline severe chronic kidney disease, stage IV Has been started on IV hydration and bicarbonate replacement. There's some improvement after Patient has a history of previous stents, which her in place, per urology, however, they plan to replace the stents tomorrow Nephrology and Urology on consult, appreciate recommendations (2) UTI (urinary tract infection): Plan: cultures growing providencia currently on Aztreonam, Daptomycin has been discontinued will await sensitivity (3) Anemia: Plan: Hb 9.6 post transfusion monitor CBC (4) Chronic kidney disease, stage 4 (severe): Plan: Patient has severe previous kidney disease and discussions with nephrology or that the family did not wish to pursue dialysis. Discussed with the daughter and she reiterated that the patient does not want hemodialysis (5) Diabetes mellitus type 2 in obese: Plan: Patient's had a tremendous weight loss. At her last admission she had a BMI of 44 now she is 30 She takes alogliptin IDD P4 inhibitor this dose that should be severely reduced with her renal dysfunction (6.25) Subsequently be held and insulin will be used cautiously (6) Depression with anxiety: Plan: There was concerns in the past for polypharmacy patient remain on trazodone 100 at bedtime( no data on renal imparement dosing) Cymbalta 120, BuSpar 20, these should not be used in Cr Cl <30 according to [facility] will hold Wellbutrin 300 is renally excetred but no data exixts, will reduce the dose (7) DVT prophylaxis: Plan: heparin Plan Continue hospitalization, hopefully discharge in next 48 hours Admission and Anticipated Discharge Date Admission Date: April 11, 2022 Subjective patient seen and examined, she appeared lucid today and answered all my que stions Review of Systems Review of Systems: Unreliable due to dementia Physical Exam Physical Exam: The patient is awake, alert and confused HEENT--PERRL, EOMI, mucous membranes and oropharynx mildly dry Neck--supple. No JVD. No bruits. Thyroid normal, trachea midline, no adenopathy. Heart--normal S1 and S2. No murmurs, rubs or gallops. Lungs--clear bilaterally, no respiratory distress, no accessory muscle use. Abdomen--normal bowel sounds and soft. Mild epigastric and left sided abdominal pain Extremities--no cyanosis or clubbing. No edema. Dermatologic--normal skin turgor, normal color, no abnormal lymph nodes, no rash. Neurologic--cranial nerves II through XII grossly intact. Rheumatologic--normal range of motion. Psychiatric--normal affect. Results & Data Results & Data ([facility]) Vital Signs (Past 12 Hours) Vital Signs Temp Pulse Resp BP Pulse Ox O2 Del Method 04/13/22 10:30 98.1 F 80 20 109/62 95 Room Air 04/13/22 07:08 97.9 F 76 20 92/56 L 99 Room Air 04/13/22 04:00 97.9 F 71 16 109/72 98 Room Air PG Care Time/CCT Total # of Minutes Spent Total Time Spent with Patient: Total time spent is greater than 50% in coordination of care (as documented) at patient's floor/unit and/or counseling patient: Coding Level of Care Code 68051 Subseq Hosp Care Lvl 2 Diagnoses Gytch-sr-yccdeub kidney injury N17.9; N18.9 UTI (urinary tract infection) N39.0 Anemia D64.9 Anemia type: unspecified type Chronic kidney disease, stage 4 (severe) N18.4 Diabetes mellitus type 2 in obese E11.69; E66.9 Depression with anxiety F41.8 DVT prophylaxis Z29.9 Time Spent (min) 35 (1) Anemia Anemia type: unspecified type Qualified Code(s): D64.9 - Anemia, unspecified
[2022-04-13] MEDS ORDERED: DAPTOmycin 275 MG in SYRINGE 0 ML IV SCH (16:00)
[2022-04-13] MEDS: traZODone HCL 100 MG TAB PO SCH (20:25)
[2022-04-14] MEDS: AZTREONAM IV SCH ×3 (00:31→15:33)
[2022-04-14] MEDS: DEXTROSE 5% IV SCH ×3 (00:31→15:33)
[2022-04-14] MEDS: SODIUM CHLORIDE 0.45 % 1,000 ML, SODIUM BICARBONATE 8.4% 75 ML IV SCH ×3 (03:21→15:32)
--- NOTE | 2022-04-14 07:19 | Urology Progress Note ---
Date of Service April 14, 2022 Assessment & Plan (1) S/P ureteral stent placement: (2) Acute UTI: (3) SOLEDAD (acute kidney injury): Plan: 67 yo F with multiple comorbidities admitted for acute on chronic kidney injury, anemia and suspected UTI. - She is on IV Aztreonam. Also had received Daptomycin. Following cultures and narrow per sensitivity data. - She is due for her regularly scheduled stent exchange soon. Given her recurrent infections and comorbidities, will plan to exchange bilateral ureteral stents during her admission while she is on IV antibiotics and medically optimized. - Plan for cystoscopy and bilateral stent exchange tomorrow with Dr. Toney NPO. On abx. Patient's daughter discussed case on phone 04/14. Agreable to proceed. Patient agreable. Will plan to exchange. Risks and benefits discussed at length with patient. Proceed with cystoscopy and bilateral stent exchange. Admission and Anticipated Discharge Date Admission Date: April 11, 2022 Subjective Patient admitted with SOLEDAD on CKD with history of chronic obstruction with stents. UTI issues and discomfort. Patient is afebrile. Has been undergoing supportive care with oral medications, IV medications, IV fluids, and oral intake. Is doing better without considerable increase in pain or major issues. Has not developed severe vomiting or other issues. Has not experienced fever or chills. NPO for procedure. Is tolerating fluids. Has noticed some frequency and urgency. Has not had severe pain in the back and flank. Does have occasional burning and irritation. No severe episodes or major changes. Catheters in good position. On broad spectrum IV antibiotics. Has not passed a large amount of blood or debris Review of Systems Review of Systems: All systems reviewed & are unremarkable except as noted in HPI & below Results & Data ([facility]) Vital Signs (Past 12 Hours) Vital Signs Temp Pulse Pulse Resp BP Pulse Ox O2 Del Method 04/14/22 04:19 36.7 C 85 18 103/65 96 Room Air 04/13/22 23:10 78 04/13/22 23:00 36.4 C L 85 18 102/67 96 PG Care Time/CCT Total # of Minutes Spent Total Time Spent with Patient: Total time spent is greater than 50% in coordination of care (as documented) at patient's floor/unit and/or counseling patient: Coding Level of Care Code 21491 Subseq Hosp Care Lvl 3 Diagnoses S/P ureteral stent placement Z96.0 Acute UTI N39.0 SOLEDAD (acute kidney injury) N17.9
--- NOTE | 2022-04-14 07:42 | Anesthesiology Consultation ---
Date of Service April 14, 2022 Assessment & Plan (1) Encounter for pre-operative examination: Chart Review Chart Review: Acceptable Risk for Surgery and Patient NOT seen in Pre Admission Testing Consults Requested none History Surgery Operation Date: 04/14/22 07:50 Proposed Procedures p Cystoscopy, Bilateral Stent Exchange - Tyree Toney, Height/Weight Height: 5 ft 5 in Weight: 82.6 kg Allergies Allergy/AdvReac Type Severity Reaction Status Date / Time Penicillins Allergy Severe Anaphylaxis Verified 04/11/22 17:03 cefazolin [From Ancef] Allergy Unknown Unknown Verified 04/11/22 17:03 pregabalin Allergy Unknown Unknown Verified 04/11/22 17:03 tramadol Allergy Unknown Unknown Verified 04/11/22 17:03 ertapenem AdvReac Severe See comment Verified 04/11/22 17:03 oxycodone AdvReac Unknown Unknown Verified 04/11/22 17:03 Medications Home Medications Medication Instructions Recorded Confirmed Last Taken cholecalciferol (vitamin D3) 125 5,000 unit PO DAILY 09/25/19 04/11/22 01/19/22 09:00 mcg (5,000 unit) tablet (Vitamin D3) bupropion HCl 300 mg 24 hr tablet, 300 mg PO QAM 11/13/20 04/11/22 01/19/22 09:00 extended release (Wellbutrin XL) acetaminophen 500 mg tablet 1,000 mg PO Q6H PRN Pain 12/03/20 04/11/22 03/22/21 (Tylenol Extra Strength) duloxetine 60 mg capsule,delayed 60 mg PO DAILY 12/03/20 04/11/22 01/19/22 09:00 release (Cymbalta) famotidine 20 mg tablet (Pepcid) 20 mg PO BID 01/24/21 04/11/22 01/19/22 20:00 pantoprazole 40 mg tablet,delayed 40 mg PO BID #42 tabs 02/17/21 04/11/22 01/19/22 16:00 release alogliptin 25 mg tablet (Nesina) 25 mg PO QAM 03/15/21 04/11/22 01/19/22 09:00 bisacodyl 5 mg tablet,delayed 10 mg PO DAILY PRN Constipation 04/15/21 04/11/22 04/23/21 09:46 release (Dulcolax (bisacodyl)) hydrocodone 5 mg-acetaminophen 325 1 tab PO Q12 PRN Pain 04/15/21 04/11/22 01/19/22 20:00 mg tablet polyethylene glycol 3350 17 17 g PO DAILY 04/15/21 04/11/22 10/20/21 09:00 gram/dose oral powder (Miralax) buspirone 10 mg tablet 20 mg PO BID 09/28/21 04/11/22 01/19/22 20:00 calcium carb-mag hydrox-simeth 675 2 tab PO Q12 PRN Indigestion 09/28/21 04/11/22 01/19/22 09:00 mg-135 mg-60 mg chewable tablet cyclobenzaprine 5 mg tablet 5 mg PO Q8 PRN Muscle Spasm 09/28/21 04/11/22 10/19/21 09:42 fentanyl 25 mcg/hr transdermal 1 patch transdermal Q72H 09/28/21 04/11/22 01/17/22 09:42 patch methenamine hippurate 1 gram tablet 1 g PO BID 09/28/21 04/11/22 01/19/22 16:00 ondansetron 4 mg disintegrating 4 mg PO Q6H PRN Nausea 09/28/21 04/11/22 Unknown tablet trazodone 100 mg tablet 100 mg PO HS 09/28/21 04/11/22 01/19/22 21:00 cyanocobalamin (vitamin B-12) 500 500 mcg PO DAILY 01/14/22 04/11/22 01/19/22 09:00 mcg tablet ropinirole 0.5 mg tablet 0.5 mg PO HS 01/14/22 04/11/22 01/19/22 20:00 alogliptin 25 mg tablet 25 mg PO QAM 04/11/22 04/11/22 Unknown duloxetine 30 mg capsule,delayed 30 mg PO DAILY 04/11/22 04/11/22 Unknown release ferrous sulfate 325 mg (65 mg 325 mg PO DAILY 04/11/22 04/11/22 Unknown iron) tablet folic acid 1 mg tablet 1 mg PO DAILY 04/11/22 04/11/22 Unknown gabapentin 100 mg capsule 100 mg PO BID 04/11/22 04/11/22 Unknown Active Medications Generic Name Dose Route Start Last Admin Trade Name Freq PRN Reason Stop Dose Admin Famotidine 20 mg 04/11/22 21:33 04/13/22 20:25 Famotidine 20 Mg Tab PO 05/11/22 21:32 20 mg BID ELAN Administration Heparin Sodium (Porcine) 5,000 units 04/11/22 21:33 04/13/22 20:25 Heparin Sod 5,000 Unit/0.5 Ml Vial SQ 05/11/22 21:32 Not Given Q12 ELAN Aztreonam 250 mg/ Dextrose 102.5 mls @ 100 mls/hr 04/12/22 00:00 04/14/22 01:45 IV 04/22/22 00:00 Infused Q8H ELAN Infusion Protocol Sodium Chloride/ Sodium 1,075 mls @ 125 mls/hr 04/12/22 18:15 04/14/22 03:21 Bicarbonate IV 05/12/22 18:14 125 mls/hr .[id number] ELAN Administration Trazodone HCl 100 mg 04/11/22 21:33 04/13/22 20:25 Trazodone Hcl 100 Mg Tab PO 05/11/22 21:32 100 mg HS ELAN Administration Past Medical History Medical History Anemia Anemia of chronic disease Calculi, ureter Chronic pain Depression with anxiety Dermatitis Diabetes mellitus type 2 in obese NIDDM Dyslipidemia Dysphagia Generalized atherosclerosis GERD (gastroesophageal reflux disease) H/O: CVA (cerebrovascular accident) History of COVID-19 05/2020> resolved per [facility] staff History of recurrent UTI (urinary tract infection) Incontinence Indwelling Fallon catheter present Lesion of bladder Metabolic encephalopathy 02/2021 Morbid obesity [facility] resident [facility] Osteomyelitis 2018 Overactive bladder Personal history of methicillin resistant Staphylococcus aureus Stage 5 chronic kidney disease not on chronic dialysis Ulcerative colitis Uropathy, obstructive Past Family History Family History Mother , age 79 of esophageal cancer Hypertension Father , in mid 60s of an [place] Myocardial infarction Past Surgical History Surgical History History of cataract surgery History of cystoscopy multiple--last 10/2021 @ [facility] History of esophagogastroduodenoscopy (EGD) Hx of surgical procedure presence of urogenital implants Presence urogenital implant S/P cholecystectomy S/P ureteral stent placement Social History Smoking Status: Former smoker Hx Alcohol Use: No Hx Substance Use: No substance use type: does not use Physical Exam Vital Signs Last Vital Signs Temp 36.7 C 04/14/22 04:19 Pulse 78 04/14/22 06:49 Resp 18 04/14/22 04:19 BP 103/65 04/14/22 04:19 Pulse Ox 96 04/14/22 04:19 O2 Del Method 04/14/22 04:19 Testing Laboratory Results 04/14/22 07:10 Hemoglobin A1c 5.0 % (4.5-5.6) 04/13/22 06:15 Urine Color Dark Yellow 04/11/22 15:55 Urine Appearance Turbid (Clear) A 04/11/22 15:55 Urine pH >= 9.0 (4.5-7.5) H 04/11/22 15:55 Ur Specific [place] 1.020 (1.000-1.030) 04/11/22 15:55 Urine Protein 3+ (Negative) H 04/11/22 15:55 Urine Glucose (UA) Negative (Negative) 04/11/22 15:55 Urine Ketones Negative (Negative) 04/11/22 15:55 Urine Nitrite Negative (Negative) 04/11/22 15:55 Ur Leukocyte Esterase 3+ (Negative) H 04/11/22 15:55 Urine RBC 10-30 /hpf (0-4) H 04/11/22 15:55 Urine WBC 10-30 /hpf (0-5) H 04/11/22 15:55 Ur Epithelial Cells 0-5 /lpf (0-5) 04/11/22 15:55 Blood Type A Positive 04/11/22 22:42 Antibody Screen NEGATIVE 04/11/22 22:42 04/11/22 16:46 Aerobic Blood Culture - Preliminary Blood No growth in Aerobic bottle after 48 hours. Anaerobic Blood Culture - Preliminary No growth in Anaerobic bottle after 48 hours. 04/11/22 16:46 Aerobic Blood Culture - Preliminary Blood No growth in Aerobic bottle after 48 hours. Anaerobic Blood Culture - Preliminary No growth in Anaerobic bottle after 48 hours. 04/11/22 15:55 Urine Culture - Preliminary Urine,Clean Catch Providencia stuartii Probable Pseudomonas species Gram negative bacilli 04/13/22 20:14 POC Glucose 85
[2022-04-14] MEDS ORDERED: ePHEDrine sulfate 50 MG/ML AMP IV PRN (07:45)
[2022-04-14] MEDS ORDERED: PHENYLEPHRINE 100MCG/ML 5ML SYR IV PRN (07:45)
[2022-04-14] MEDS ORDERED: LABETALOL HCL IV 5 MG/ML 20ML IV PRN (07:45)
[2022-04-14] MEDS ORDERED: fentaNYL citrate 100 MCG/2 ML VIAL IV PRN (07:45)
[2022-04-14] MEDS ORDERED: ONDANSETRON INJ 2 MG/ML 2 ML VIAL IV PRN (07:45)
[2022-04-14] MEDS ORDERED: ATROPINE SULFATE 0.1 MG/ML 10ML SYR IV PRN (07:45)
[2022-04-14 07:57] LABS: Creatinine Clr Calc Pharmacy 9.6 ml/min; Est GFR (African American) 7.6 ml/min; Est GFR (Non-African American) 6.5 ml/min
[2022-04-14 07:58] LABS: BUN Creatinine Ratio 11.8 (10-20); Blood Urea Nitrogen 73 mg/dl (6-23); Calcium 8.1 mg/dl (8.5-10.1); Carbon Dioxide 24 mmol/L (21-32); Chloride 106 mmol/L (98-107); Glucose 71 mg/dl (70-99(Fasting))
[2022-04-14] MEDS ORDERED: PROPOFOL IV EMULSION 10 MG/ML 20 ML VIAL IV ONE ×3 (07:59→09:05)
[2022-04-14] MEDS ORDERED: fentaNYL citrate 100 MCG/2 ML VIAL ONE (07:59)
--- NOTE | 2022-04-14 09:04 | Operative Report ---
PG Post Operative Report Pre & Post Diagnosis Operation Date: 04/14/22 07:50 <No data on this case meets the specified criteria> I identified the patient and participated in the time-out.: Yes Procedure Operation Date: 04/14/22 07:50 <No data on this case meets the specified criteria> Surgeon Tyree Toney, II, DO Speedboat Driver None Estimated Blood Loss 1 Findings Consistent with Post-Op Diagnosis Stents exchanged and placed in good position. Contracted bladder. Significant lower extremity contractures. Specimens None Drains 6 Fr x 24 bilateral 18Fr Engel Anesthesia Type MAC Complications none Disposition Disposition: Recovery Room Indications Patient with obstruction with chronic stent changes. Risks and benefits discussed at length. Description of Procedure Patient was consented and brought back to the operating room. Patient was placed under anesthesia in the supine position and moved to the dorsal lithotomy position. Patient was prepped and draped in the regular sterile fashion. A time out was completed. A 30degree Cystoscope was placed into the bladder and the entire bladder was examined. The UO's were identified. The left stent was grasped and partially removed. A wire was then placed and the stent fully removed. The UO was cannulized over the wire with a dual lumen catheter and a retrograde pyelogram was completed. The wire was maintained and the catheter removed. With the wire in place, a 6 Fr Double J stent was placed. It was confirmed with fluoroscopy. This was then completed for the right stent. With the stents in place, the bladder was emptied. An 18 Fr engel was placed. The scope was removed. The patient was cleaned, aroused from anesthesia, and transferred to the pacu in stable condition having tolerated the procedure well with no complications. I was present and participated in all aspects of the procedure. The patient will be monitored in the PACU until transferred. Plan stent exchange in 3 months. I attest to the content of the Intraoperative Record and any orders documented therein. Any exceptions are noted below.
[2022-04-14] MEDS ORDERED: DIATRIZOATE MEGLUMINE 30% 100ML VIAL INSTIL ONE (09:09)
--- NOTE | 2022-04-14 09:46 | Anesthesiology Progress Note ---
Date of Service April 14, 2022 Anesthesia Post Procedure Vital Signs Vital Signs: Temp Pulse Pulse Pulse Resp BP BP 04/14/22 09:40 36.5 C 77 20 122/71 04/14/22 09:31 83 15 94/71 L 04/14/22 09:21 36.3 C L 87 16 112/81 04/14/22 07:39 36.8 C 110 H 20 106/59 L 04/14/22 06:49 78 04/14/22 04:19 36.7 C 85 18 103/65 04/13/22 23:10 78 04/13/22 23:00 36.4 C L 85 18 102/67 04/13/22 19:00 36.8 C 81 18 107/68 04/13/22 15:22 36.7 C 97 H 20 102/67 04/13/22 10:30 36.7 C 80 20 109/62 Pulse Ox O2 Del Method O2 Flow Rate 04/14/22 09:40 98 Room Air 04/14/22 09:31 98 Room Air 04/14/22 09:21 100 Oxymask 5 04/14/22 07:39 95 Room Air 04/14/22 06:49 04/14/22 04:19 96 Room Air 04/13/22 23:10 04/13/22 23:00 96 04/13/22 19:00 95 Room Air 04/13/22 15:22 94 04/13/22 10:30 95 Room Air Transfer of Care Handoff Completed per policy Notes Mental Status: alert / awake / arousable Patient Amnestic to Procedure: Yes Nausea / Vomiting: adequately controlled Pain: adequately controlled Airway Patency, RR, SpO2: stable & adequate BP & HR: stable & adequate Hydration State: stable & adequate Anesthetic Complications: no major complications apparent and Pt Satisfied with anesthetic care
[2022-04-14] MEDS: HEPARIN SOD 5,000 UNIT/0.5 ML VIAL SQ SCH ×2 (10:18→20:28)
--- NOTE | 2022-04-14 10:45 | Nephrology Progress Note ---
Date of Service April 14, 2022 Assessment & Plan (1) SOLEDAD (acute kidney injury): Plan: Clinically consistent with prerenal physiology and suspected ATN. Non-oliguric. Electrolytes acceptable. Volume status hypovolemic. Replacement IVF is being provided. Continue 1/2 NS + NaHCO3 @ 125 ml/hr. Goals of care have been reviewed. Debbie will not consider dialysis. Medications are appropriately dosed for kidney dysfunction. (2) CKD (chronic kidney disease): Plan: Baseline CKD IV-V. Approaching ESRD. Kidneys are atrophic. Goals of care reviewed. Dialysis will not be considered part of the overall plan of care. If kidney dysfunction continues to decline, plan is to transition to palliative management/comfort measures. (3) Anemia: Plan: 2 units PRBC provided yesterday. BJ noted. Venofer 200 mg IV today. Epogen 84481 units x 1 dose provided yesterday. (4) Hydronephrosis: Plan: Plan of care reviewed with urology. No intervention at this time. Fallon in place. (5) Acute dehydration: Plan: Goal is to maintain positive fluid balance with IVF. (6) Acute UTI: Plan: Blood culture NGTD. Urine + providenciae, pseudomonas. Stents exchanged today. Admission and Anticipated Discharge Date Admission Date: April 11, 2022 Subjective No acute events overnight. Debbie was seen and evaluated after returning from the OR this AM. Afebrile. PO intake reportedly improving. Review of Systems Review of Systems: All systems reviewed & are unremarkable except as noted in HPI & below Physical Exam Constitutional: well developed and + morbidly obese; no acute distress Eyes: + anicteric sclerae; no corneal abnormality ENMT: Mouth: + dry oral mucous membranes; no oral mucosal abnormality Neck: normal visual inspection and trachea midline Respiratory: normal respiratory effort Auscultation: lungs clear to auscultation bilaterally Cardiovascular: Rate/Rhythm: regular rate Heart Sounds: normal S1 and normal S2 Extremities: + edema (dependent edema, soft pitting) Musculoskeletal: Extremities: no cyanosis and no clubbing Skin: + turgor decreased, + lesion and + dry skin Neurologic: Motor/Sensory: no tremor and no asterixis Psychiatric: Orientation: alert and oriented x 3 Results & Data ([facility]) Vital Signs (Past 12 Hours) Vital Signs Temp Pulse Pulse Pulse Resp BP BP 04/14/22 10:06 36.6 C 74 19 106/62 09/29/22 09:50 75 19 119/76 04/14/22 09:40 36.5 C 77 20 122/71 04/14/22 09:31 83 15 94/71 L 04/14/22 09:21 36.3 C L 87 16 112/81 04/14/22 07:39 36.8 C 110 H 20 106/59 L 04/14/22 06:49 78 04/14/22 04:19 36.7 C 85 18 103/65 04/13/22 23:10 78 04/13/22 23:00 36.4 C L 85 18 102/67 Pulse Ox O2 Del Method O2 Flow Rate 04/14/22 10:06 99 Room Air 04/14/22 09:50 98 Room Air 04/14/22 09:40 98 Room Air 04/14/22 09:31 98 Room Air 04/14/22 09:21 100 Oxymask 5 04/14/22 07:39 95 Room Air 04/14/22 06:49 04/14/22 04:19 96 Room Air 04/13/22 23:10 04/13/22 23:00 96 Laboratory Results Laboratory Results - last 24 hr 04/13/22 04/13/22 04/13/22 11:13 16:26 20:14 WBC RBC Hgb Hct MCV MCH MCHC RDW Std Deviation RDW Coeff of Katina Plt Count MPV Absolute Nucleated RBC Nucleated RBC % (auto) Platelet Estimate Sodium Potassium Chloride Carbon Dioxide Anion Gap BUN Creatinine Est Cr Clr Drug Dosing Est GFR ( Amer) Est GFR (Non-Af Amer) BUN/Creatinine Ratio Glucose POC Glucose 105 H 100 H 85 Calcium Phosphorus Magnesium 04/14/22 04/14/22 04/14/22 07:10 07:10 09:23 WBC Cancelled RBC Cancelled Hgb Cancelled Hct Cancelled MCV Cancelled MCH Cancelled MCHC Cancelled RDW Std Deviation Cancelled RDW Coeff of Katina Cancelled Plt Count Cancelled MPV Cancelled Absolute Nucleated RBC Cancelled Nucleated RBC % (auto) Cancelled Platelet Estimate Cancelled Sodium TNP Potassium TNP Chloride 106 Carbon Dioxide 24 Anion Gap TNP BUN 73 H Creatinine 6.18 H* D Est Cr Clr Drug Dosing 9.6 Est GFR ( Amer) 7.6 Est GFR (Non-Af Amer) 6.5 BUN/Creatinine Ratio 11.8 Glucose 71 POC Glucose 77 Calcium 8.1 L Phosphorus TNP Magnesium TNP PG Care Time/CCT Total # of Minutes Spent Total Time Spent with Patient: Total time spent is greater than 50% in coordination of care (as documented) at patient's floor/unit and/or counseling patient: Coding Level of Care Code 92850 Subseq Hosp Care Lvl 3 Diagnoses SOLEDAD (acute kidney injury) N17.9 CKD (chronic kidney disease) N18.4 Chronic kidney disease stage: stage 4 (severe) Anemia D64.9 Anemia type: unspecified type Hydronephrosis N13.30 Hydronephrosis type: unspecified Acute dehydration E86.0 Acute UTI N39.0 (1) CKD (chronic kidney disease) Chronic kidney disease stage: stage 4 (severe) Qualified Code(s): N18.4 - Chr onic kidney disease, stage 4 (severe) (2) Anemia Anemia type: unspecified type Qualified Code(s): D64.9 - Anemia, unspecified (3) Hydronephrosis Hydronephrosis type: unspecified Qualified Code(s): N13.30 - Unspecified hydronephrosis
[2022-04-14 11:16] LABS: Hematocrit (blood only) 31.3 % (34.1-44.9); Hemoglobin 10.4 g/dl (12.0-16.0); Mean Corpuscular Hemoglobin 32.8 pg (25.0-34.0); Mean Corpuscular Hgb Conc 33.2 g/dL (32.0-36.0); Mean Corpuscular Volume 98.7 fL (80.0-100.0); Mean Platelet Volume 10.1 fL (9.4-12.3); Platelet Count 213 K/uL (130-400); RDW Coefficient of Variation 14.9 % (11.5-14.5); RDW Standard Deviation 54.1 fL (36.4-46.3); Red Blood Count 3.17 M/uL (3.93-5.22); White Blood Count 8.24 K/ul (4.8-10.8)
[2022-04-14 11:36] LABS: Magnesium 1.8 mg/dl (1.7-2.4); Phosphorus 4.9 mg/dl (2.5-4.9); Potassium 3.5 mmol/L (3.5-5.1)
[2022-04-14] MEDS: FAMOTIDINE 20 MG TAB PO SCH ×2 (11:55→20:25)
--- NOTE | 2022-04-14 12:40 | Hospitalist Progress Note ---
Date of Service April 14, 2022 Assessment & Plan (1) Yixzs-sj-usqmuqv kidney injury: Plan: Most likely prerenal due to dehydration, although patient has some baseline severe chronic kidney disease, stage IV Has been started on IV hydration and bicarbonate replacement. There's some improvement in renal function However, no plans for dialysis Stents have been replaced today in the OR Nephrology and Urology on consult, appreciate recommendations (2) UTI (urinary tract infection): Plan: cultures growing providencia, peudomonas sensitivity results are available currently on Aztreonam, we will continue for a total of 5 days (3) Anemia: Plan: Hb stable post transfusion monitor CBC (4) Chronic kidney disease, stage 4 (severe): Plan: Patient has severe previous kidney disease and discussions with nephrology or that the family did not wish to pursue dialysis. Discussed with the daughter and she reiterated that the patient does not want hemodialysis (5) Diabetes mellitus type 2 in obese: Plan: Patient's had a tremendous weight loss. At her last admission she had a BMI of 44 now she is 30 She takes alogliptin IDD P4 inhibitor this dose that should be severely reduced with her renal dysfunction (6.25) Subsequently be held and insulin will be used cautiously (6) Depression with anxiety: Plan: There was concerns in the past for polypharmacy patient remain on trazodone 100 at bedtime( no data on renal imparement dosing) Cymbalta 120, BuSpar 20, these should not be used in Cr Cl <30 according to [facility] will hold Wellbutrin 300 is renally excetred but no data exixts, will reduce the dose (7) DVT prophylaxis: Plan: heparin Plan Continue hospitalization, hopefully discharge in next 3 days back to her MD Admission and Anticipated Discharge Date Admission Date: April 11, 2022 Subjective patient seen and examined after returning from stent replacement Review of Systems Review of Systems: Unreliable due to dementia Physical Exam Physical Exam: The patient is awake, alert and confused HEENT--PERRL, EOMI, mucous membranes and oropharynx mildly dry Neck--supple. No JVD. No bruits. Thyroid normal, trachea midline, no adenopathy. Heart--normal S1 and S2. No murmurs, rubs or gallops. Lungs--clear bilaterally, no respiratory distress, no accessory muscle use. Abdomen--normal bowel sounds and soft. Mild epigastric and left sided abdominal pain Extremities--no cyanosis or clubbing. No edema. Dermatologic--normal skin turgor, normal color, no abnormal lymph nodes, no rash. Neurologic--cranial nerves II through XII grossly intact. Rheumatologic--normal range of motion. Psychiatric--normal affect. Results & Data Results & Data ([facility]) Vital Signs (Past 12 Hours) Vital Signs Temp Pulse Pulse Pulse Resp BP BP 04/14/22 11:28 79 04/14/22 10:32 76 18 121/89 04/14/22 10:06 97.9 F 74 19 106/62 04/14/22 09:50 75 19 119/76 04/14/22 09:40 97.7 F 77 20 122/71 04/14/22 09:31 83 15 94/71 L 04/14/22 09:21 97.3 F L 87 16 112/81 04/14/22 07:39 98.2 F 110 H 20 106/59 L 04/14/22 06:49 78 04/14/22 04:19 98.1 F 85 18 103/65 Pulse Ox O2 Del Method O2 Flow Rate 04/14/22 11:28 04/14/22 10:32 99 Room Air 04/14/22 10:06 99 Room Air 04/14/22 09:50 98 Room Air 04/14/22 09:40 98 Room Air 04/14/22 09:31 98 Room Air 04/14/22 09:21 100 Oxymask 5 04/14/22 07:39 95 Room Air 04/14/22 06:49 04/14/22 04:19 96 Room Air PG Care Time/CCT Total # of Minutes Spent Total Time Spent with Patient: Total time spent is greater than 50% in coordination of care (as documented) at patient's floor/unit and/or counseling patient: Coding Level of Care Code 50662 Subseq Hosp Care Lvl 2 Diagnoses Zhplg-[id number] kidney injury N17.9; N18.9 UTI (urinary tract infection) N39.0 Anemia D64.9 Anemia type: unspecified type Chronic kidney disease, stage 4 (severe) N18.4 Diabetes mellitus type 2 in obese E11.69; E66.9 Depression with anxiety F41.8 DVT prophylaxis Z29.9 Time Spent (min) 35 (1) Anemia Anemia type: unspecified type Qualified Code(s): D64.9 - Anemia, unspecified
--- NOTE | 2022-04-14 13:47 | Fluoroscopy Report ---
FL retrograde includes kub CLINICAL HISTORY: BILATERAL STENT EXCHANGE TECHNIQUE: 9 views were obtained with the C-arm in the OR with the above procedure. Total fluoroscopy time was 33.6 seconds. Total skin dose was 7.49 mGy. Comparison: Comparison is made to CT abdomen pelvis 04/11/2022 FINDINGS/IMPRESSION: Intraoperative images were obtained of bilateral retrograde urogram and stent ex change. Please correlate with intraoperative fluoroscopy and operative report. ACT 112: Negative or not required by law. Electronically signed by: Dale Day M.D. 04/14/2022 1:46 PM
[2022-04-14] MEDS: ACETAMINOPHEN 325 MG TAB PO PRN ×2 (18:10→19:32)
[2022-04-14] MEDS: fentaNYL 25 MCG/HR TDSY TD SCH (20:06)
[2022-04-14] MEDS: traZODone HCL 100 MG TAB PO SCH (20:25)
[2022-04-15] MEDS: AZTREONAM IV SCH ×2 (00:50→08:26)
[2022-04-15] MEDS: DEXTROSE 5% IV SCH ×2 (00:50→08:26)
[2022-04-15] MEDS: SODIUM CHLORIDE 0.45 % 1,000 ML, SODIUM BICARBONATE 8.4% 75 ML IV SCH ×2 (00:50→08:27)
[2022-04-15] MEDS: CHECK fentaNYL PATCH PLACEMENT SCH ×3 (08:27→17:03)
[2022-04-15] MEDS: FAMOTIDINE 20 MG TAB PO SCH ×2 (08:28→20:42)
[2022-04-15] MEDS: HEPARIN SOD 5,000 UNIT/0.5 ML VIAL SQ SCH ×2 (08:28→20:42)
[2022-04-15 09:40] LABS: Hematocrit (blood only) 29.4 % (34.1-44.9); Hemoglobin 9.9 g/dl (12.0-16.0); Mean Corpuscular Hemoglobin 32.4 pg (25.0-34.0); Mean Corpuscular Hgb Conc 33.7 g/dL (32.0-36.0); Mean Corpuscular Volume 96.1 fL (80.0-100.0); Mean Platelet Volume 10.4 fL (9.4-12.3); Nucleated RBC # (auto) 0.02 K/uL (0-0); Nucleated RBC % (auto) 0.1 %; Platelet Count 206 K/uL (130-400); RDW Coefficient of Variation 14.5 % (11.5-14.5); RDW Standard Deviation 51.3 fL (36.4-46.3); Red Blood Count 3.06 M/uL (3.93-5.22); White Blood Count 14.23 K/ul (4.8-10.8)
[2022-04-15 10:03] LABS: BUN Creatinine Ratio 12.6 (10-20); Calcium 7.6 mg/dl (8.5-10.1); Est GFR (African American) 10.4 ml/min
--- NOTE | 2022-04-15 10:13 | Urology Progress Note ---
Date of Service April 15, 2022 Assessment & Plan (1) UTI (urinary tract infection): (2) SOLEDAD (acute kidney injury): (3) S/P ureteral stent placement: Plan: - Pt POD#1 s/p cystoscopy and bilateral stent exchange - Afebrile overnight, she had a temp of 37.9 yesterday evening - Lab work reviewed - creatinine improved to 4.75 today, WBC 14.24 - Tolerating bilateral ureteral stents with minimal bother - Fallon catheter exchanged post operatively, intact and draining - Urine culture grew out 3 organisms - Providencia, Pseudomonas, Morganella, on Aztreonam - Continue supportive care, antibiotics and management per primary service - Expected clinical course reviewed, all questions answered - Will arrange outpatient follow-up with our service for further management - will sign off Admission and Anticipated Discharge Date Admission Date: April 11, 2022 Subjective Patient seen and examined at bedside this AM. She is awake and resting in bed, appears comfortable. No acute issues overnight. Notes a headache, but no other complaints. No abdominal or flank pain. Fallon intact and draining yellow urine with bloody sediment as well as some ivy/purulent looking urine. No subjective fevers or chills. Reports low appetite and nausea, no vomiting. Review of Systems Constitutional: as per Subjective / HPI Gastrointestinal: as per Subjective / HPI Genitourinary: as per Subjective / HPI Physical Exam Constitutional: + morbidly obese; no acute distress Eyes: no scleral abnormality Respiratory: no respiratory distress and no labored breathing Cardiovascular: Rate/Rhythm: regular rate Gastrointestinal (Abdomen): Inspection/Auscultation: abdomen normal to inspection; abdomen not distended Percussion/Palpation: abdomen soft; abdomen nontender Musculoskeletal: Head/Neck/Chest: normocephalic and head atraumatic Neurologic: moves all extremities and awake Psychiatric: Orientation: alert and oriented to person Genitourinary: Fallon intact and draining yellow urine with bloody sediment and some ivy/purulent appearing urine Results & Data ([facility]) Vital Signs (Past 12 Hours) Vital Signs Temp Pulse Pulse Resp BP Pulse Ox O2 Del Method 04/15/22 07:38 37.3 C 96 H 18 105/70 96 Room Air 04/15/22 07:00 89 04/15/22 03:30 37.2 C 04/15/22 02:47 37.7 C H 89 18 90/62 L 100 Room Air 04/14/22 22:22 90 04/14/22 22:55 36.3 C L 88 16 91/63 L 97 Room Air PG Care Time/CCT Total # of Minutes Spent Total Time Spent with Patient: Total time spent is greater than 50% in coordination of care (as documented) at patient's floor/unit and/or counseling patient: Coding Level of Care Code 94497 Subseq Hosp Care Lvl 2 Diagnoses UTI (urinary tract infection) N39.0 SOLEDAD (acute kidney injury) N17.9 S/P ureteral stent placement Z96.0
--- NOTE | 2022-04-15 11:43 | Palliative Care Consultation ---
Date of Consultation April 15, 2022 Assessment & Plan (1) Palliative care encounter: I talked with Mrs. Hardy's daughter, Kymberly Ingram. She tells me that her mother was quite clear about not wanting to do dialysis. She also has a living indicating that she would not want resuscitation or aggressive measures to prolong her life. Mrs. Hardy resides at [facility]. Per Kymberly, she is not able to do things that she enjoys and does not have a good quality of life. She is trying to find a balance in decision making between supporting her mother and prolonging her life beyond what Debbie would want. She has considered shift of focus to comfort measures only but is not entirely comfortable with that. We discussed option to continue current level of care without escalating care. We specifically talked about whether she felt that Debbie was benefitting from transfusions and Kymberly is not sure that she is. She recognizes the disruption and stress that coming to the hospital causes for Debbie and notes that Debbie did not initially want to come to the hospital this admission. She is most comfortable at this time with plan to return to [facility] with current medications and care. She does not feel that Debbie would want to return to the hospital and if she were to develop a problem at [facility], the goal would be to transition to comfort focused care at that time with hospice support. We completed a POLST based on our discussion for DNR, comfort measures, determine antibiotics at the time and no artificial nutrition or hydration. Discussed with RN and case management History of Present Illness Reason for Consultation: goals of care Requesting Physician: Dr. Vega Attending Physician: Cary Vega MD History of Present Illness 72 yo lady with history of obstructive uropathy and Stage V CKD. She has bilateral ureteral stents and history of ureteral calculi. Stents were changed yesterday and she had a drop in her creatinine to 4.75 from 6.18, though her GFR is 9. She has had recurrent UTIs and a history of osteomyelitis and was admitted with SOLEDAD and a UTI. She also has anemia requiring periodic transfusions. Her last transfusion was 04/12 with a hemoglobin of 6.7. Her daughter reports that prior to that, her last transfusion had been in January. She has variable mental status and encephalopathy but has been quite clear with her family that she would not want dialysis. Allergies Allergy/AdvReac Type Severity Reaction Status Date / Time Penicillins Allergy Severe Anaphylaxis Verified 04/11/22 17:03 cefazolin [From [facility]] Allergy Unknown Unknown Verified 04/11/22 17:03 pregabalin Allergy Unknown Unknown Verified 04/11/22 17:03 tramadol Allergy Unknown Unknown Verified 04/11/22 17:03 ertapenem AdvReac Severe See comment Verified 04/11/22 17:03 oxycodone AdvReac Unknown Unknown Verified 04/11/22 17:03 Home Medications Medication Instructions Recorded Confirmed Type cholecalciferol (vitamin D3) 125 5,000 unit PO DAILY 09/25/19 04/11/22 History mcg (5,000 unit) tablet (Vitamin D3) bupropion HCl 300 mg 24 hr tablet, 300 mg PO QAM 11/13/20 04/11/22 History extended release (Wellbutrin XL) acetaminophen 500 mg tablet 1,000 mg PO Q6H PRN Pain 12/03/20 04/11/22 History (Tylenol Extra Strength) duloxetine 60 mg capsule,delayed 60 mg PO DAILY 12/03/20 04/11/22 History release (Cymbalta) famotidine 20 mg tablet (Pepcid) 20 mg PO BID 01/24/21 04/11/22 History pantoprazole 40 mg tablet,delayed 40 mg PO BID #42 tabs 02/17/21 04/11/22 Rx release alogliptin 25 mg tablet (Nesina) 25 mg PO QAM 03/15/21 04/11/22 History bisacodyl 5 mg tablet,delayed 10 mg PO DAILY PRN Constipation 04/15/21 04/11/22 History release (Dulcolax (bisacodyl)) hydrocodone 5 mg-acetaminophen 325 1 tab PO Q12 PRN Pain 04/15/21 04/11/22 History mg tablet polyethylene glycol 3350 17 17 g PO DAILY 04/15/21 04/11/22 History gram/dose oral powder (Miralax) buspirone 10 mg tablet 20 mg PO BID 09/28/21 04/11/22 History calcium carb-mag hydrox-simeth 675 2 tab PO Q12 PRN Indigestion 09/28/21 04/11/22 History mg-135 mg-60 mg chewable tablet cyclobenzaprine 5 mg tablet 5 mg PO Q8 PRN Muscle Spasm 09/28/21 04/11/22 History fentanyl 25 mcg/hr transdermal 1 patch transdermal Q72H 09/28/21 04/11/22 History patch methenamine hippurate 1 gram tablet 1 g PO BID 09/28/21 04/11/22 History ondansetron 4 mg disintegrating 4 mg PO Q6H PRN Nausea 09/28/21 04/11/22 History tablet trazodone 100 mg tablet 100 mg PO HS 09/28/21 04/11/22 History cyanocobalamin (vitamin B-12) 500 500 mcg PO DAILY 01/14/22 04/11/22 History mcg tablet ropinirole 0.5 mg tablet 0.5 mg PO HS 01/14/22 04/11/22 History alogliptin 25 mg tablet 25 mg PO QAM 04/11/22 04/11/22 History duloxetine 30 mg capsule,delayed 30 mg PO DAILY 04/11/22 04/11/22 History release ferrous sulfate 325 mg (65 mg 325 mg PO DAILY 04/11/22 04/11/22 History iron) tablet folic acid 1 mg tablet 1 mg PO DAILY 04/11/22 04/11/22 History gabapentin 100 mg capsule 100 mg PO BID 04/11/22 04/11/22 History aztreonam 1 gram solution for 250 mg IV Q8H 5 days #2 ea 04/15/22 Rx injection (Azactam) Patient History Medical History Anemia Anemia of chronic disease Calculi, ureter Chronic pain Depression with anxiety Dermatitis Diabetes mellitus type 2 in obese NIDDM Dyslipidemia Dysphagia Generalized atherosclerosis GERD (gastroesophageal reflux disease) H/O: CVA (cerebrovascular accident) History of COVID-19 05/2020> resolved per [facility] staff History of recurrent UTI (urinary tract infection) Incontinence Indwelling Fallon catheter present Lesion of bladder Metabolic encephalopathy 02/2021 Morbid obesity assisted resident [facility] Osteomyelitis 2018 Overactive bladder Personal history of methicillin resistant Staphylococcus aureus Stage 5 chronic kidney disease not on chronic dialysis Ulcerative colitis Uropathy, obstructive Surgical History History of cataract surgery History of cystoscopy multiple--last 10/2021 @ [facility] History of esophagogastroduodenoscopy (EGD) Hx of surgical procedure presence of urogenital implants Presence urogenital implant S/P cholecystectomy S/P ureteral stent placement Family History Mother , age 79 of esophageal cancer Hypertension Father , in mid 60s of an [place] Myocardial infarction Social History Smoking Status: Former smoker Tobacco Type: Cigarettes Age Quit Using Tobacco: 48; Second Hand Exposure: No; Hx Alcohol Use: No Hx Substance Use: No Preferred Language: Vietnamese Communication Ability: Impaired Visual Impairment: No Limitations Lan Specialist Required: No Beliefs That Will Affect Care: None marital status: Current Living Situation: [facility] Current Living Situation Comment: [facility] Resident current occupational status: retired Other Information That Helps Us Care for You: No Feels Safe at Home: Yes Safety Concerns: Feels Safe At This Time Assistive Devices: Glasses Review of Systems Review of Systems: Unobtainable due to cognitive status Physical Exam Constitutional: no acute distress ENMT: Mouth: oral mucous membranes not dry Respiratory: normal respiratory effort; no labored breathing Cardiovascular: Rate/Rhythm: + irregularly irregular Gastrointestinal (Abdomen): obese Neurologic: awake and + confused Results & Data ([facility]) Vital Signs (Past 12 Hours) Vital Signs Temp Pulse Pulse Resp BP Pulse Ox O2 Del Method 04/15/22 07:38 99.1 F 96 H 18 105/70 96 Room Air 04/15/22 07:00 89 04/15/22 03:30 99.0 F 04/15/22 02:47 99.9 F H 89 18 90/62 L 100 Room Air PG Care Time/CCT Total # of Minutes Spent Total Time Spent: 75 Total Time Spent with Patient: Total time spent is greater than 50% in coordination of care (as documented) at patient's floor/unit and/or counseling patient: goals of care, POLST, family education and support, coordination of care Coding Level of Care Code 39867 Initial Inpt Care Lvl 3 Diagnoses Palliative care encounter Z51.5
[2022-04-15] MEDS ORDERED: POTASSIUM CHLORIDE CRTAB 20 MEQ TABCR PO STA (13:00)
--- NOTE | 2022-04-15 14:01 | Nephrology Progress Note ---
Date of Service April 15, 2022 Assessment & Plan (1) SOLEDAD (acute kidney injury): Plan: Clinically consistent with prerenal physiology. Creatinine improving. Non- oliguric. Electrolytes acceptable. Volume status improved. Tolerating adequate PO. IVF stopped this AM. Goals of care reviewed. Palliative care consultation completed. Discharge plan confirmed. Medications are appropriately dosed for kidney dysfunction. No additional recommendations from nephrology at this time. I will sign- off/monitor labs peripherally. Outpatient follow up with Dr. Aguilar can be arranged at the patient's request in the future. (2) CKD (chronic kidney disease): Plan: Baseline CKD IV-V. Approaching ESRD. Goals of care reviewed. Dialysis will not be considered part of the overall plan of care. (3) Anemia: Plan: 2 units PRBC provided 04/13. BJ noted. Venofer 200 mg IV yesterday. Epogen 86838 units x 1 dose provided yesterday. (4) Acute UTI: Plan: Blood culture NGTD. Urine + providenciae, pseudomonas. Stents exchanged yesterday. Remains on IV aztreonam. Admission and Anticipated Discharge Date Admission Date: April 11, 2022 Gordon Lewis was seen and evaluated in her hospital room this AM. No fevers. No acute events overnight. Urine clearing. Uncomfortable this morning with some exacerbation of chronic neck pain which Debbie attributed to her hospital bed. Review of Systems Review of Systems: All systems reviewed & are unremarkable except as noted in HPI & below Physical Exam Constitutional: well developed and + morbidly obese; no acute distress Eyes: + anicteric sclerae; no corneal abnormality ENMT: Mouth: + dry oral mucous membranes; no oral mucosal abnormality Neck: normal visual inspection and trachea midline Respiratory: normal respiratory effort Auscultation: lungs clear to au scultation bilaterally Cardiovascular: Rate/Rhythm: regular rate Heart Sounds: normal S1 and normal S2 Extremities: + edema (dependent edema, soft pitting) Musculoskeletal: Extremities: no cyanosis and no clubbing Skin: + turgor decreased, + lesion and + dry skin Neurologic: Motor/Sensory: no tremor and no asterixis Psychiatric: Orientation: alert and oriented x 3 Results & Data ([facility]) Vital Signs (Past 12 Hours) Vital Signs Temp Pulse Pulse Resp BP Pulse Ox O2 Del Method 04/15/22 11:59 36.9 C 98 H 18 100/60 96 Room Air 04/15/22 07:38 37.3 C 96 H 18 105/70 96 Room Air 04/15/22 07:00 89 04/15/22 03:30 37.2 C 04/15/22 02:47 37.7 C H 89 18 90/62 L 100 Room Air Laboratory Results Laboratory Results - last 24 hr 04/14/22 04/14/22 04/15/22 16:22 20:07 07:25 WBC RBC Hgb Hct MCV MCH MCHC RDW Std Deviation RDW Coeff of Katina Plt Count MPV Absolute Nucleated RBC Nucleated RBC % (auto) Sodium Potassium Chloride Carbon Dioxide Anion Gap BUN Creatinine Est Cr Clr Drug Dosing Est GFR ( Amer) Est GFR (Non-Af Amer) BUN/Creatinine Ratio Glucose POC Glucose 108 H 110 H 89 Calcium 04/15/22 04/15/22 04/15/22 09:19 09:19 11:39 WBC 14.23 H RBC 3.06 L Hgb 9.9 L Hct 29.4 L MCV 96.1 MCH 32.4 MCHC 33.7 RDW Std Deviation 51.3 H RDW Coeff of Katina 14.5 Plt Count 206 MPV 10.4 Absolute Nucleated RBC 0.02 H Nucleated RBC % (auto) 0.1 Sodium 137 Potassium 3.0 L Chloride 102 Carbon Dioxide 25 Anion Gap 10 BUN 60 H Creatinine 4.75 H* D Est Cr Clr Drug Dosing 13.0 Est GFR ( Amer) 10.4 Est GFR (Non-Af Amer) 9.0 BUN/Creatinine Ratio 12.6 Glucose 117 H POC Glucose 108 H Calcium 7.6 L PG Care Time/CCT Total # of Minutes Spent Total Time Spent with Patient: Total time spent is greater than 50% in coordination of care (as documented) at patient's floor/unit and/or counseling patient: Coding Level of Care Code 07365 Subseq Hosp Care Lvl 3 Diagnoses SOLEDAD (acute kidney injury) N17.9 CKD (chronic kidney disease) N18.4 Chronic kidney disease stage: stage 4 (severe) Anemia D64.9 Anemia type: unspecified type Acute UTI N39.0 (1) CKD (chronic kidney disease) Chronic kidney disease stage: stage 4 (severe) Qualified Code(s): N18.4 - Chronic kidney disease, stage 4 (severe) (2) Anemia Anemia type: unspecified type Qualified Code(s): D64.9 - Anemia, unspecified
--- NOTE | 2022-04-15 14:37 | Discharge Summary ---
Date of Service April 15, 2022 Admission HPI Per Admitting Provider 67-year-old female resident of the [facility] was sent because of elevation of creatinine. Patient has a known history of chronic kidney disease stage IV. She has bilateral ureteral stents which were last changed January 20. She is in no immediate distress but cannot provide any significant history. Patient labs support and intact potassium with a mild reduction of bicarbonate she typically follows [facility] nephrology. Antidotal leave the emergency room doctor felt that the family has been approached in the past about dialysis but did not feel they wanted to pursue that Principal Diagnosis UTI Discharge Exam The patient is awake, alert and confused HEENT--PERRL, EOMI, mucous membranes and oropharynx mildly dry Neck--supple. No JVD. No bruits. Thyroid normal, trachea midline, no adenopathy. Heart--normal S1 and S2. No murmurs, rubs or gallops. Lungs--clear bilaterally, no respiratory distress, no accessory muscle use. Abdomen--normal bowel sounds and soft. Mild epigastric and left sided abdominal pain Extremities--no cyanosis or clubbing. No edema. Dermatologic--normal skin turgor, normal color, no abnormal lymph nodes, no rash. Neurologic--cranial nerves II through XII grossly intact. Rheumatologic--normal range of motion. Psychiatric--normal affect. Discharge Data Allergies Allergy/AdvReac Type Severity Reaction Status Date / Time Penicillins Allergy Severe Anaphylaxis Verified 04/11/22 17:03 cefazolin [From [facility]] Allergy Unknown Unknown Verified 04/11/22 17:03 pregabalin Allergy Unknown Unknown Verified 04/11/22 17:03 tramadol Allergy Unknown Unknown Verified 04/11/22 17:03 ertapenem AdvReac Severe See comment Verified 04/11/22 17:03 oxycodone AdvReac Unknown Unknown Verified 04/11/22 17:03 Consultations 04/11/22 15:54 ED Decision to Admit Stat 04/11/22 21:33 Consult Nephrology Routine Consult Nephrology Routine Consult Urology Routine 04/12/22 12:39 Consult Palliative Care Routine Procedures Performed Operation Date: 04/14/22 07:50 Actual Procedures p Cystoscopy, Bilateral Retrograde pyelograms, Bilateral Stent Exchange(Bilateral) - Tyree Toney DO Ordered Studies 04/11/22 15:41 CT abd pelvis wo con Stat 04/14/22 07:50 FL retrograde includes kub Routine Hospital Course (1) Ffwbn-jh-oixdxco kidney injury: Most likely prerenal due to dehydration, although patient has some baseline severe chronic kidney disease, stage IV Has been started on IV hydration and bicarbonate replacement. There's some improvement in renal function However, no plans for dialysis Stents have been replaced today in the OR Nephrology and Urology on consult, appreciate recommendations (2) UTI (urinary tract infection): cultures growing providencia, peudomonas, Morganella sensitivity results are available currently on Aztreonam 250mg Q hrs (renally dosed), we will continue for a total of 10 days (3) Anemia: Hb stable post transfusion monitor CBC (4) Chronic kidney disease, stage 4 (severe): Patient has severe previous kidney disease and discussions with nephrology or that the family did not wish to pursue dialysis. Discussed with the daughter and she reiterated that the patient does not want hemodialysis (5) Diabetes mellitus type 2 in obese: Patient's had a tremendous weight loss. At her last admission she had a BMI of 44 now she is 30 She takes alogliptin IDD P4 inhibitor this dose that should be severely reduced with her renal dysfunction (6.25) Subsequently be held and insulin will be used cautiously (6) Depression with anxiety: There was concerns in the past for polypharmacy patient remain on trazodone 100 at bedtime( no data on renal imparement dosing) Cymbalta 120, BuSpar 20, these should not be used in Cr Cl <30 according to [facility] will hold Wellbutrin 300 is renally excetred but no data exixts, will reduce the dose (7) DVT prophylaxis: heparin Plan d/c to her NH Total Time Total Time Spent Total Time Spent (In Minutes): 35 Discharge Plan Discharge Items Patient Disposition: Transfer Assisted Fac Reason For Visit: ACUTE RENAL FAILURE WITH CKD4 Discharge Diagnosis: UTI Condition on Discharge: Fair Activity: Resume your previous activity Non-emergency contact: Primary Care Provider, Manager Professional Development and Urologist Call non-emergency contact if: you have any medication questions Follow-up/Referrals: Miles Carson [Primary Care Provider] - Diet: Regular Addtl Attending Provider Instructions: please make appointment to follow up with your regular doctors Pending Studies at Discharge: No Stand-Alone Forms: My [facility] Skilled Items Patient informed of condition?: Yes DNR: Yes Discharge Level of Care: Skilled Communicable Disease: No Discharge Prognosis: Stable Lines: None Urinary Catheter: No Medications and DC Order Prescriptions: New aztreonam [Azactam] 1 gram recon soln 250 mg IV Q8H 5 Days Qty: 2 0RF Continued cholecalciferol (vitamin D3) [Vitamin D3] 125 mcg (5,000 unit) Tablet 5,000 unit PO DAILY acetaminophen [Tylenol Extra Strength] 500 mg Tablet 1,000 mg PO Q6H PRN (Reason: Pain) duloxetine [Cymbalta] 60 mg Capsule,Delayed Release(Dr/Ec) 60 mg PO DAILY famotidine [Pepcid] 20 mg tablet 20 mg PO BID pantoprazole 40 mg Tablet,Delayed Release (Dr/Ec) 40 mg PO BID Qty: 42 0RF alogliptin [Nesina] 25 mg Tablet 25 mg PO QAM hydrocodone-acetaminophen 5-325 mg Tablet 1 tab PO Q12 PRN (Reason: Pain) bisacodyl [Dulcolax (bisacodyl)] 5 mg Tablet,Delayed Release (Dr/Ec) 10 mg PO DAILY PRN (Reason: Constipation) polyethylene glycol 3350 [Miralax] 17 gram/dose Powder 17 g PO DAILY methenamine hippurate 1 gram Tablet 1 g PO BID trazodone 100 mg Tablet 100 mg PO HS buspirone 10 mg Tablet 20 mg PO BID fentanyl 25 mcg/hr Patch 72 Hour 1 patch TRANSDERMAL Q72H ondansetron 4 mg Tablet,Disintegrating 4 mg PO Q6H PRN (Reason: Nausea) cyclobenzaprine 5 mg Tablet 5 mg PO Q8 PRN (Reason: Muscle Spasm) calcium carb-mag hydrox-simeth 675-135-60 mg Tablet,Chewable 2 tab PO Q12 PRN (Reason: Indigestion) cyanocobalamin (vitamin B-12) 500 mcg Tablet 500 mcg PO DAILY ropinirole 0.5 mg Tablet 0.5 mg PO HS ferrous sulfate 325 mg (65 mg iron) Tablet 325 mg PO DAILY folic acid 1 mg Tablet 1 mg PO DAILY gabapentin 100 mg capsule 100 mg PO BID duloxetine 30 mg capsule,delayed release(DR/EC) 30 mg PO DAILY Rx Instructions: Give with 60 mg tab = 90 mg alogliptin 25 mg tablet 25 mg PO QAM bupropion HCl [Wellbutrin XL] 300 mg Tablet Extended Release 24 Hr 300 mg PO QAM Discharge Orders: Discharge Order (Routine); Ordered 04/15/22 Ordered By: Cary Vega Admission Data Admit Date/Time: 04/11/22 16:37 Attending Provider: Cary Vega Admit Provider: Rafy Eagle Primary Care Provider: Miles Carson Other Providers: Shannon Aguilar ; Rafy Eagle ; Tyree Toney ; Cecy Gonzalez Coding Level of Care Code D/C DAY MANAGEMENT >30 MINS Diagnoses Lylma-zt-lnaqrid kidney injury N17.9; N18.9 UTI (urinary tract infection) N39.0 Anemia D64.9 Anemia type: unspecified type Chronic kidney disease, stage 4 (severe) N18.4 Diabetes mellitus type 2 in obese E11.69; E66.9 Depression with anxiety F41.8 DVT prophylaxis Z29.9 Time Spent (min) 35
--- NOTE | 2022-04-15 15:30 | Hospitalist Progress Note ---
Date of Service April 15, 2022 Assessment & Plan (1) Tqkww-ri-eihzatl kidney injury: Plan: Most likely prerenal due to dehydration, although patient has some baseline severe chronic kidney disease, stage IV Has been started on IV hydration and bicarbonate replacement. There's some improvement in renal function However, no plans for dialysis Stents have been replaced in the OR by Urology Nephrology and Urology on consult, appreciate recommendations (2) UTI (urinary tract infection): Plan: cultures growing providencia, peudomonas, Morganella sensitivity results are available currently on Aztreonam 250mg Q8 hrs (renally dosed), we will continue for a total of 10 days (till 04/20) (3) Anemia: Plan: Hb stable post transfusion monitor CBC (4) Chronic kidney disease, stage 4 (severe): Plan: Patient has severe previous kidney disease and discussions with nephrology or that the family did not wish to pursue dialysis. Discussed with the daughter and she reiterated that the patient does not want hemodialysis (5) Diabetes mellitus type 2 in obese: Plan: Patient's had a tremendous weight loss. At her last admission she had a BMI of 44 now she is 30 She takes alogliptin IDD P4 inhibitor this dose that should be severely reduced with her renal dysfunction (6.25) Subsequently be held and insulin will be used cautiously (6) Depression with anxiety: Plan: There was concerns in the past for polypharmacy patient remain on trazodone 100 at bedtime( no data on renal imparement dosing) Cymbalta 120, BuSpar 20, these should not be used in Cr Cl <30 according to [facility] will hold Wellbutrin 300 is renally excetred but no data exixts, will reduce the dose (7) DVT prophylaxis: Plan: heparin Plan d/c to her NH on Monday when they accept Admission and Anticipated Discharge Date Admission Date: April 11, 2022 Subjective patient seen and examined, wants to go back to her [facility] residence Review of Systems Review of Systems: Unreliable due to dementia Physical Exam Physical Exam: The patient is awake, alert and confused HEENT--PERRL, EOMI, mucous membranes and oropharynx mildly dry Neck--supple. No JVD. No bruits. Thyroid normal, trachea midline, no adenopathy. Heart--normal S1 and S2. No murmurs, rubs or gallops. Lungs--clear bilaterally, no respiratory distress, no accessory muscle use. Abdomen--normal bowel sounds and soft. Mild epigastric and left sided abdominal pain Extremities--no cyanosis or clubbing. No edema. Dermatologic--normal skin turgor, normal color, no abnormal lymph nodes, no rash. Neurologic--cranial nerves II through XII grossly intact. Rheumatologic--normal range of motion. Psychiatric--normal affect. Results & Data Results & Data ([facility]) Vital Signs (Past 12 Hours) Vital Signs Temp Pulse Pulse Resp BP Pulse Ox O2 Del Method 04/15/22 11:59 98.4 F 98 H 18 100/60 96 Room Air 04/15/22 07:38 99.1 F 96 H 18 105/70 96 Room Air 04/15/22 07:00 89 04/15/22 03:30 99.0 F PG Care Time/CCT Total # of Minutes Spent Total Time Spent with Patient: Total time spent is greater than 50% in coordination of care (as documented) at patient's floor/unit and/or counseling patient: Coding Level of Care Code 57067 Subseq Hosp Care Lvl 2 Diagnoses Qicmz-od-omanbtk kidney injury N17.9; N18.9 UTI (urinary tract infection) N39.0 Anemia D64.9 Anemia type: unspecified type Chronic kidney disease, stage 4 (severe) N18.4 Diabetes mellitus type 2 in obese E11.69; E66.9 Depression with anxiety F41.8 DVT prophylaxis Z29.9 Time Spent (min) 35 (1) Anemia Anemia type: unspecified type Qualified Code(s): D64.9 - Anemia, unspecified
[2022-04-15] MEDS: AZTREONAM 500 MG in DEXTROSE 5% 100 ML IV SCH (17:20)
[2022-04-15] MEDS: ONDANSETRON INJ 2 MG/ML 2 ML VIAL IV PRN (18:25)
[2022-04-15] MEDS: ACETAMINOPHEN 325 MG TAB PO PRN (19:47)
[2022-04-15] MEDS: traZODone HCL 100 MG TAB PO SCH (20:42)
[2022-04-16] MEDS: AZTREONAM 500 MG in DEXTROSE 5% 100 ML IV SCH ×3 (00:03→16:46)
[2022-04-16] MEDS: CHECK fentaNYL PATCH PLACEMENT SCH ×3 (00:03→16:45)
[2022-04-16] MEDS: FAMOTIDINE 20 MG TAB PO SCH ×2 (08:31→20:12)
[2022-04-16] MEDS: HEPARIN SOD 5,000 UNIT/0.5 ML VIAL SQ SCH ×2 (08:31→20:12)
[2022-04-16 10:48] LABS: BUN Creatinine Ratio 12.2 (10-20); Calcium 7.8 mg/dl (8.5-10.1); Creatinine Clr Calc Pharmacy 13.7 ml/min; Est GFR (African American) 11.1 ml/min; Est GFR (Non-African American) 9.6 ml/min; Potassium 3.2 mmol/L (3.5-5.1)
--- NOTE | 2022-04-16 12:15 | Hospitalist Progress Note ---
Date of Service April 16, 2022 Assessment & Plan (1) Vjlqo-ib-cydczvr kidney injury: Plan: Most likely prerenal due to dehydration, although patient has some baseline severe chronic kidney disease, stage IV Received IV hydration and bicarbonate replacement, with some improvement in renal function However, no plans for dialysis Stents have been replaced in the OR by Urology Nephrology and Urology on consult, appreciate recommendations (2) UTI (urinary tract infection): Plan: cultures growing providencia, peudomonas, Morganella sensitivity results are available currently on Aztreonam 250mg Q8 hrs (renally dosed), we will continue for a total of 10 days (till 04/20) NH is able to give her IV, but will take her back on Monday (3) Anemia: Plan: Hb stable post transfusion monitor CBC (4) Chronic kidney disease, stage 4 (severe): Plan: Patient has severe previous kidney disease and discussions with nephrology or that the family did not wish to pursue dialysis. Discussed with the daughter and she reiterated that the patient does not want hemodialysis (5) Diabetes mellitus type 2 in obese: Plan: Patient's had a tremendous weight loss. At her last admission she had a BMI of 44 now she is 32 She takes alogliptin IDD P4 inhibitor this dose that should be severely reduced with her renal dysfunction (6.25) Subsequently be held and insulin will be used cautiously (6) Depression with anxiety: Plan: There was concerns in the past for polypharmacy patient remain on trazodone 100 at bedtime( no data on renal imparement dosing) Cymbalta 120, BuSpar 20, these should not be used in Cr Cl <30 according to [facility] will hold Wellbutrin 300 is renally excetred but no data exixts, will reduce the dose (7) DVT prophylaxis: Plan: heparin Plan d/c to her NH on Monday when they accept Admission and Anticipated Discharge Date Admission Date: April 11, 2022 Subjective patient seen and examined, wants to go back to her [facility] residence Review of Systems Review of Systems: Unreliable due to dementia Physical Exam Physical Exam: The patient is awake, alert and confused HEENT--PERRL, EOMI, mucous membranes and oropharynx mildly dry Neck--supple. No JVD. No bruits. Thyroid normal, trachea midline, no adenopathy. Heart--normal S1 and S2. No murmurs, rubs or gallops. Lungs--clear bilaterally, no respiratory distress, no accessory muscle use. Abdomen--normal bowel sounds and soft. Mild epigastric and left sided abdominal pain Extremities--no cyanosis or clubbing. No edema. Dermatologic--normal skin turgor, normal color, no abnormal lymph nodes, no rash. Neurologic--cranial nerves II through XII grossly intact. Rheumatologic--normal range of motion. Psychiatric--normal affect. Results & Data Results & Data ([facility]) Vital Signs (Past 12 Hours) Vital Signs Temp Pulse Resp BP Pulse Ox O2 Del Method 04/16/22 07:49 98.4 F 78 16 109/71 97 Room Air PG Care Time/CCT Total # of Minutes Spent Total Time Spent with Patient: Total time spent is greater than 50% in coordination of care (as documented) at patient's floor/unit and/or counseling patient: Coding Level of Care Code 76323 Subseq Hosp Care Lvl 2 Diagnoses Pbfte-vz-uwpgrxi kidney injury N17.9; N18.9 UTI (urinary tract infection) N39.0 Anemia D64.9 Anemia type: unspecified type Chronic kidney disease, stage 4 (severe) N18.4 Diabetes mellitus type 2 in obese E11.69; E66.9 Depression with anxiety F41.8 DVT prophylaxis Z29.9 Time Spent (min) 35 (1) Anemia Anemia type: unspecified type Qualified Code(s): D64.9 - Anemia, unspecified
[2022-04-16] MEDS: ACETAMINOPHEN 325 MG TAB PO PRN (16:47)
[2022-04-16] MEDS ORDERED: POTASSIUM CHLORIDE CRTAB 20 MEQ TABCR PO STA (17:16)
[2022-04-16] MEDS: traZODone HCL 100 MG TAB PO SCH (20:12)
[2022-04-17] MEDS: CHECK fentaNYL PATCH PLACEMENT SCH ×4 (00:21→23:08)
[2022-04-17 07:32] LABS: Hematocrit (blood only) 29.3 % (34.1-44.9); Hemoglobin 9.6 g/dl (12.0-16.0); Mean Corpuscular Hgb Conc 32.8 g/dL (32.0-36.0); Mean Corpuscular Volume 97.7 fL (80.0-100.0); Mean Platelet Volume 10.2 fL (9.4-12.3); Platelet Count 233 K/uL (130-400); RDW Coefficient of Variation 14.4 % (11.5-14.5); RDW Standard Deviation 51.8 fL (36.4-46.3); White Blood Count 7.36 K/ul (4.8-10.8)
[2022-04-17 08:02] LABS: Calcium 7.9 mg/dl (8.5-10.1); Est GFR (African American) 11.4 ml/min; Est GFR (Non-African American) 9.9 ml/min; Potassium 3.3 mmol/L (3.5-5.1)
[2022-04-17] MEDS: HEPARIN SOD 5,000 UNIT/0.5 ML VIAL SQ SCH ×2 (09:18→20:02)
[2022-04-17] MEDS: FAMOTIDINE 20 MG TAB PO SCH ×2 (09:18→20:00)
--- NOTE | 2022-04-17 11:39 | Hospitalist Progress Note ---
Date of Service April 17, 2022 Assessment & Plan (1) Gszhx-ow-moqzkue kidney injury: Plan: Most likely prerenal due to dehydration, although patient has some baseline severe chronic kidney disease, stage IV Received IV hydration and bicarbonate replacement, with some improvement in renal function However, no plans for dialysis Stents have been replaced in the OR by Urology Nephrology and Urology on consult, appreciate recommendations (2) UTI (urinary tract infection): Plan: cultures growing providencia, peudomonas, Morganella sensitivity results are available currently on Aztreonam 250mg Q8 hrs (renally dosed), we will continue for a total of 10 days (till 04/20) NH is able to give her IV, but will take her back on Wednesday 04/18 (3) Hypokalemia: Plan: Patient often refuses potassium replacements, tablets or liquid she says her body reacts badly to it 3.3 Today (4) Anemia: Plan: Hb stable post transfusion monitor CBC (5) Chronic kidney disease, stage 4 (severe): Plan: Patient has severe previous kidney disease and discussions with nephrology or that the family did not wish to pursue dialysis. Discussed with the daughter and she reiterated that the patient does not want hemodialysis (6) Diabetes mellitus type 2 in obese: Plan: Patient's had a tremendous weight loss. At her last admission she had a BMI of 44 now she is 32 She takes alogliptin IDD P4 inhibitor this dose that should be severely reduced with her renal dysfunction (6.25) Subsequently be held and insulin will be used cautiously (7) Depression with anxiety: Plan: There was concerns in the past for polypharmacy patient remain on trazodone 100 at bedtime( no data on renal imparement dosing) Cymbalta 120, BuSpar 20, these should not be used in Cr Cl <30 according to [facility] will hold Wellbutrin 300 is renally excetred but no data exixts, will reduce the dose (8) DVT prophylaxis: Plan: heparin Plan d/c to her NH on Monday when they accept Admission and Anticipated Discharge Date Admission Date: April 11, 2022 Subjective patient seen and examined, wants to go back to her [facility] residence Review of Systems Review of Systems: Unreliable due to dementia Physical Exam Physical Exam: The patient is awake, alert and confused HEENT--PERRL, EOMI, mucous membranes and oropharynx mildly dry Neck--supple. No JVD. No bruits. Thyroid normal, trachea midline, no adenopathy. Heart--normal S1 and S2. No murmurs, rubs or gallops. Lungs--clear bilaterally, no respiratory distress, no accessory muscle use. Abdomen--normal bowel sounds and soft. Mild epigastric and left sided abdominal pain Extremities--no cyanosis or clubbing. No edema. Dermatologic--normal skin turgor, normal color, no abnormal lymph nodes, no rash. Neurologic--cranial nerves II through XII grossly intact. Rheumatologic--normal range of motion. Psychiatric--normal affect. Results & Data Results & Data ([facility]) Vital Signs (Past 12 Hours) Vital Signs Pulse Resp BP Pulse Ox O2 Del Method 04/17/22 08:11 Room Air 04/17/22 07:57 90 16 118/71 99 PG Care Time/CCT Total # of Minutes Spent Total Time Spent with Patient: Total time spent is greater than 50% in coordination of care (as documented) at patient's floor/unit and/or counseling patient: Coding Level of Care Code 79630 Subseq Hosp Care Lvl 2 Diagnoses Zijcg-go-sscgatg kidney injury N17.9; N18.9 UTI (urinary tract infection) N39.0 Hypokalemia E87.6 Anemia D64.9 Anemia type: unspecified type Chronic kidney disease, stage 4 (severe) N18.4 Diabetes mellitus type 2 in obese E11.69; E66.9 Depression with anxiety F41.8 DVT prophylaxis Z29.9 Time Spent (min) 35 (1) Anemia Anemia type: unspecified type Qualified Code(s): D64.9 - Anemia, unspecified
[2022-04-17] MEDS: fentaNYL 25 MCG/HR TDSY TD SCH (18:39)
[2022-04-17] MEDS: traZODone HCL 100 MG TAB PO SCH (20:00)
[2022-04-18 08:07] LABS: Hemoglobin 9.8 g/dl (12.0-16.0); Mean Corpuscular Hemoglobin 32.7 pg (25.0-34.0); Mean Corpuscular Hgb Conc 32.7 g/dL (32.0-36.0); Mean Platelet Volume 9.9 fL (9.4-12.3); Platelet Count 245 K/uL (130-400); RDW Coefficient of Variation 14.5 % (11.5-14.5); RDW Standard Deviation 53.1 fL (36.4-46.3); White Blood Count 7.36 K/ul (4.8-10.8)
[2022-04-18 08:28] LABS: BUN Creatinine Ratio 12.1 (10-20); Calcium 8.1 mg/dl (8.5-10.1); Creatinine Clr Calc Pharmacy 14.1 ml/min; Est GFR (African American) 11.5 ml/min; Est GFR (Non-African American) 9.9 ml/min; Potassium 3.4 mmol/L (3.5-5.1)
--- NOTE | 2022-04-18 08:32 | Discharge Summary ---
Discharge Summary Date of Service April 18, 2022 Admission HPI Per Admitting Provider 67-year-old female resident of the [facility] was sent because of elevation of creatinine. Patient has a known history of chronic kidney disease stage IV. She has bilateral ureteral stents which were last changed January 20. She is in no immediate distress but cannot provide any significant history. Patient labs support and intact potassium with a mild reduction of bicarbonate she typically follows [facility] nephrology. Antidotal leave the emergency room doctor felt that the family has been approached in the past about dialysis but did not feel they wanted to pursue that Principal Dx & Hospital Course #1 = Principal Diagnosis Updated Medication List Medication Instructions Recorded Confirmed Type cholecalciferol (vitamin D3) 125 5,000 unit PO DAILY 09/25/19 04/11/22 History mcg (5,000 unit) tablet (Vitamin D3) bupropion HCl 300 mg 24 hr tablet, 300 mg PO QAM 11/13/20 04/11/22 History extended release (Wellbutrin XL) acetaminophen 500 mg tablet 1,000 mg PO Q6H PRN Pain 12/03/20 04/11/22 History (Tylenol Extra Strength) duloxetine 60 mg capsule,delayed 60 mg PO DAILY 12/03/20 04/11/22 History release (Cymbalta) famotidine 20 mg tablet (Pepcid) 20 mg PO BID 01/24/21 04/11/22 History pantoprazole 40 mg tablet,delayed 40 mg PO BID #42 tabs 02/17/21 04/11/22 Rx release alogliptin 25 mg tablet (Nesina) 25 mg PO QAM 03/15/21 04/11/22 History bisacodyl 5 mg tablet,delayed 10 mg PO DAILY PRN Constipation 04/15/21 04/11/22 History release (Dulcolax (bisacodyl)) hydrocodone 5 mg-acetaminophen 325 1 tab PO Q12 PRN Pain 04/15/21 04/11/22 History mg tablet polyethylene glycol 3350 17 17 g PO DAILY 04/15/21 04/11/22 History gram/dose oral powder (Miralax) buspirone 10 mg tablet 20 mg PO BID 09/28/21 04/11/22 History calcium carb-mag hydrox-simeth 675 2 tab PO Q12 PRN Indigestion 09/28/21 04/11/22 History mg-135 mg-60 mg chewable tablet cyclobenzaprine 5 mg tablet 5 mg PO Q8 PRN Muscle Spasm 09/28/21 04/11/22 History fentanyl 25 mcg/hr transdermal 1 patch transdermal Q72H 09/28/21 04/11/22 History patch methenamine hippurate 1 gram tablet 1 g PO BID 09/28/21 04/11/22 History ondansetron 4 mg disintegrating 4 mg PO Q6H PRN Nausea 09/28/21 04/11/22 History tablet trazodone 100 mg tablet 100 mg PO HS 09/28/21 04/11/22 History cyanocobalamin (vitamin B-12) 500 500 mcg PO DAILY 01/14/22 04/11/22 History mcg tablet ropinirole 0.5 mg tablet 0.5 mg PO HS 01/14/22 04/11/22 History alogliptin 25 mg tablet 25 mg PO QAM 04/11/22 04/11/22 History duloxetine 30 mg capsule,delayed 30 mg PO DAILY 04/11/22 04/11/22 History release ferrous sulfate 325 mg (65 mg 325 mg PO DAILY 04/11/22 04/11/22 History iron) tablet folic acid 1 mg tablet 1 mg PO DAILY 04/11/22 04/11/22 History gabapentin 100 mg capsule 100 mg PO BID 04/11/22 04/11/22 History aztreonam 1 gram solution for 250 mg IV Q8H 5 days #2 ea 04/15/22 Rx injection (Azactam) Hospital Stay Data Consultations 04/11/22 15:54 ED Decision to Admit Stat 04/11/22 21:33 Consult Nephrology Routine Consult Nephrology Routine Consult Urology Routine 04/12/22 12:39 Consult Palliative Care Routine Procedures Performed Operation Date: 04/14/22 07:50 Actual Procedures p Cystoscopy, Bilateral Retrograde pyelograms, Bilateral Stent Exchange(Bilateral) - Tyree Toney DO Diagnostic Imagining Performed 04/11/22 15:41 CT abd pelvis wo con Stat 04/14/22 07:50 FL retrograde includes kub Routine Pending Results Patient Have Any Pending Studies at Discharge: No Discharge Instructions Given to Patient (Per Discharging Provider) SOLEDAD on CKD IV-V: Presented with SOLEDAD on baseline CKD, approaching ESRD. Prerenal due to dehydration, ATN. Received IV hydration and bicarbonate replacement, with improvement in renal function to creatinine 4.4. Ureteral stents have been replaced in the OR by Urology. Nephrology and Urology on consult, appreciate recommendations: Decrease alogliptin to 6.25mg daily, if continued on discharge. Avoid cyclobenzaprine on this level of CKD. Patient and daughter agree that they do not want dialysis in the event that it would be necessary. UTI (urinary tract infection): Cultures growing Providencia, Pseudomonas, Morganella. Currently on Aztreonam 250mg Q8 hrs (renally dosed), to complete ten day course on 04/20. Hypokalemia: Patient often refuses potassium replacements, tablets or liquid, as she says her body reacts badly to it. K 3.3 today. Anemia: Hgb stable post transfusion 2U PRBCs. Epogen 10,000 units x1, Venofer 200mg IV x1 received while admitted. Diabetes mellitus type 2 in obese: Patient's had a tremendous weight loss. At her last admission she had a BMI of 44 now she is 30. She takes alogliptin; per Nephrology shoulder decrease to 6.25mg if the medication is continued. Glucoses have remained within acceptable range despite not receiving insulin or gliptin. Depression with anxiety: Holding Cymbalta and Buspar in setting of CKD IV-V. Wellbutrin dose decreased. Coding
[2022-04-18] MEDS: HEPARIN SOD 5,000 UNIT/0.5 ML VIAL SQ SCH ×2 (08:57→20:53)
[2022-04-18] MEDS: CHECK fentaNYL PATCH PLACEMENT SCH ×2 (08:57→16:38)
[2022-04-18] MEDS: FAMOTIDINE 20 MG TAB PO SCH ×2 (10:38→20:53)
[2022-04-18] MEDS: INSULIN ASPART PER UNIT SC SCH ×3 (13:22→20:52)
[2022-04-18] MEDS: AZTREONAM 500 MG in DEXTROSE 5% 100 ML IV SCH ×2 (14:33→20:53)
--- NOTE | 2022-04-18 14:42 | Hospitalist Progress Note ---
Date of Service April 18, 2022 Assessment & Plan (1) Uyvrr-fa-hobmwuk kidney injury: Plan: 67-year-old female past medical history CKD stage IVV, DM2, CVA, anemia admitted for SOLEDAD on CKD. SOLEDAD on CKD: Resides at her side; sent to ER for elevated creatinine. Creatinine on admission of 8.56 -> has since down trended and creatinine is 4.37 this morning. SOLEDAD (prerenal and ATN) on CKD. Received IV hydration and bicarbonate replacement, with significant improvement in renal function. Nephrology consulted and appreciate recommendations: Patient refuses dialysis in the event that that were to become required. Will have outpatient follow-up with Dr. Agiular on discharge. (2) UTI (urinary tract infection): Plan: - Cultures growing Providencia, Pseudomonas, Morganella. - Patient was on aztreonam 250 mg every 8 hours through 04/16; resumed today at 500mg q8h dosing to complete a total of 10 days of antibiotics for complicated UTI (end on 04/21). - Ultimate goal for discharge to [facility], and they have agreed to assume control the antibiotics. (3) Hypokalemia: Plan: - Potassium 3.4 today. - Patient refused potassium supplementation today; will reassess tomorrow based on levels. (4) Anemia: Plan: - Admission hemoglobin of 7.2, decreased to 6.7 during admission. - Now status post 2 units PRBCs, Venofer, and Epogen. - Daily CBC. (5) Chronic kidney disease, stage 4 (severe): Plan: - Patient has severe previous kidney disease and discussions with nephrology or that the family did not wish to pursue dialysis. (6) Diabetes mellitus type 2 in obese: Plan: - Patient has had tremendous weight loss since her last admission she had a BMI of 44; BMI 32 at this time. - She takes alogliptin at home; should be decreased to 6.25 mg daily per nephrology if patient continues the medication. - Patient has not required any insulin on diabetic diet. (7) Depression with anxiety: Plan: - There was concerns in the past for polypharmacy patient remain on trazodone 100 at bedtime. - Cymbalta 120, BuSpar 20 daily discontinued due to poor renal clearance. - Continue Wellbutrin at reduced dose. Plan CODE STATUS: DNR/DNI FEN: Dialysis renal, diabetic diet DVT prophylaxis: Heparin 5000 units SQ every 12 hours Dispo: Med/Surg with ultimate plan for return to [facility] on discharge Admission and Anticipated Discharge Date Admission Date: April 11, 2022 Subjective Patient without any acute events overnight. She does not endorse chest pain, shortness of breath, nausea, vomiting, diarrhea, abdominal pain. Review of Systems Constitutional: no fever and no chills Respiratory: no cough and no dyspnea Cardiovascular: no chest pain and no palpitations Gastrointestinal: no abdominal pain, no nausea and no vomiting Physical Exam Constitutional: well developed and well nourished; no acute distress Eyes: PERRL, conjunctivae normal, anicteric sclerae Respiratory: normal respiratory effort, lungs clear to auscultation Cardiovascular: RRR, no murmur, no edema Gastrointestinal (Abdomen): normal bowel sounds, soft, nontender, no hepatosplenomegaly Musculoskeletal: no cyanosis or clubbing, extremities motor strength 5/5 Skin: no rashes, warm and dry Psychiatric: Alert, oriented only to person and place Results & Data Results & Data ([facility]) Vital Signs (Past 12 Hours) Vital Signs Temp Pulse Resp BP Pulse Ox O2 Del Method 04/18/22 09:29 Room Air 04/18/22 08:23 36.5 C 86 16 94/62 L 95 Room Air PG Care Time/CCT Total # of Minutes Spent Total Time Spent with Patient: Total time spent is greater than 50% in coordination of care (as documented) at patient's floor/unit and/or counseling patient: Coding Level of Care Code 55600 Subseq Hosp Care Lvl 3 Diagnoses Xxrzi-hx-ccujmlw kidney injury N17.9; N18.9 UTI (urinary tract infection) N39.0 Hypokalemia E87.6 Anemia D64.9 Anemia type: unspecified type Chronic kidney disease, stage 4 (severe) N18.4 Diabetes mellitus type 2 in obese E11.69; E66.9 Depression with anxiety F41.8 (1) Anemia Anemia type: unspecified type Qualified Code(s): D64.9 - Anemia, unspecified
[2022-04-18] MEDS: traZODone HCL 100 MG TAB PO SCH (20:54)
[2022-04-18] MEDS: ONDANSETRON INJ 2 MG/ML 2 ML VIAL IV PRN (21:52)
[2022-04-18] MEDS: ACETAMINOPHEN 325 MG TAB PO PRN (22:31)
[2022-04-19] MEDS: CHECK fentaNYL PATCH PLACEMENT SCH ×4 (00:10→23:12)
[2022-04-19] MEDS: AZTREONAM 500 MG in DEXTROSE 5% 100 ML IV SCH ×3 (05:23→20:25)
[2022-04-19 07:12] LABS: Hematocrit (blood only) 28.6 % (34.1-44.9); Hemoglobin 9.1 g/dl (12.0-16.0); Mean Corpuscular Hemoglobin 32.3 pg (25.0-34.0); Mean Corpuscular Hgb Conc 31.8 g/dL (32.0-36.0); Mean Corpuscular Volume 101.4 fL (80.0-100.0); Mean Platelet Volume 10.2 fL (9.4-12.3); Platelet Count 248 K/uL (130-400); RDW Coefficient of Variation 14.1 % (11.5-14.5); RDW Standard Deviation 52.4 fL (36.4-46.3); Red Blood Count 2.82 M/uL (3.93-5.22); White Blood Count 7.19 K/ul (4.8-10.8)
[2022-04-19 07:38] LABS: BUN Creatinine Ratio 11.7 (10-20); Creatinine Clr Calc Pharmacy 13.9 ml/min; Est GFR (African American) 11.3 ml/min; Est GFR (Non-African American) 9.8 ml/min; Potassium 3.3 mmol/L (3.5-5.1)
[2022-04-19] MEDS: FAMOTIDINE 20 MG TAB PO SCH ×2 (08:19→20:24)
[2022-04-19] MEDS: HEPARIN SOD 5,000 UNIT/0.5 ML VIAL SQ SCH ×2 (08:19→20:24)
[2022-04-19] MEDS: INSULIN ASPART PER UNIT SC SCH ×4 (08:53→21:24)
--- NOTE | 2022-04-19 11:50 | Hospitalist Progress Note ---
Date of Service April 19, 2022 Assessment & Plan (1) Nxgsd-za-gouuunp kidney injury: Plan: 67-year-old female past medical history CKD stage IVV, DM2, CVA, anemia admitted for SOLEDAD on CKD. OSLEDAD on CKD: - SOLEDAD (prerenal and ATN) on CKD. - Resides at [facility]; sent to ER for elevated creatinine. - Creatinine on admission of 8.56 -> has since down trended and creatinine is 4.43 this morning. - Received IV hydration and bicarbonate replacement, with significant imp rovement in renal function. - Nephrology consulted and appreciate recommendations: Patient refuses dialysis in the event that that were to become required. - Will have outpatient follow-up with Dr. Aguilar on discharge. (2) UTI (urinary tract infection): Plan: - Cultures growing Providencia, Pseudomonas, Morganella. - Patient was on aztreonam 250 mg every 8 hours through 04/16; resumed 04/18 at 500mg q8h dosing to complete a total of 10 days of antibiotics for complicated UTI (end on 04/21). - Ultimate goal for discharge to [facility] tomorrow, and they have agreed to assume control of the antibiotics. (3) Hypokalemia: Plan: - Potassium 3.3 today. - S/p KCl 40 meq p.o. today. (4) Anemia: Plan: - Admission hemoglobin of 7.2, decreased to 6.7 during admission. - Now status post 2 units PRBCs, Venofer, and Epogen. - Daily CBC. hgb 9.1 today. (5) Chronic kidney disease, stage 4 (severe): Plan: - Patient has severe previous kidney disease and discussions with nephrology have occurred such that patient and family does not wish to pursue dialysis in the event that she were to have worsening of her renal disease. (6) Diabetes mellitus type 2 in obese: Plan: - Patient has had tremendous weight loss since her last admission she had a BMI of 44; BMI 32 at this time. - She takes alogliptin at home; should be decreased to 6.25 mg daily on discharge per nephrology if patient continues the medication. - Patient has not required any insulin on diabetic diet. (7) Depression with anxiety: Plan: - There was concerns in the past for polypharmacy patient remain on trazodone 100 at bedtime. - Cymbalta and BuSpar discontinued due to poor renal clearance. - Continue Wellbutrin at reduced dose. (8) Pruritus: Plan: - Today with complaints of pruritus on right leg, however no rashes and no generalized pruritus. - Benadryl 25 mg p.o. x1 given. Plan CODE STATUS: DNR/DNI FEN: Dialysis renal, diabetic diet DVT prophylaxis: Heparin 5000 units SQ every 12 hours Dispo: Med/Surg with ultimate plan for return to [facility] on discharge Admission and Anticipated Discharge Date Admission Date: April 11, 2022 Subjective Overnight patient was confused and ripped out ultrasound-guided IV. Patient does not have recollection of having done this. She complains of some itching on her left leg but no rash was appreciated. Review of Systems Review of Systems: Unreliable due to dementia Constitutional: no fever and no chills Respiratory: no cough and no dyspnea Cardiovascular: no chest pain and no palpitations Gastrointestinal: no abdominal pain, no nausea and no vomiting Physical Exam Constitutional: well developed and well nourished; no acute distress Eyes: PERRL, conjunctivae normal, anicteric sclerae Respiratory: normal respiratory effort, lungs clear to auscultation Cardiovascular: RRR, no murmur, no edema Gastrointestinal (Abdomen): normal bowel sounds, soft, nontender, no hepatosplenomegaly Musculoskeletal: no cyanosis or clubbing, extremities motor strength 5/5 Skin: no rashes, warm and dry Results & Data Results & Data ([facility]) Vital Signs (Past 12 Hours) Vital Signs O2 Del Method 04/19/22 08:00 Room Air PG Care Time/CCT Total # of Minutes Spent Total Time Spent with Patient: Total time spent is greater than 50% in coordination of care (as documented) at patient's floor/unit and/or counseling patient: Coding Level of Care Code 03366 Subseq Hosp Care Lvl 3 Diagnoses Spgbk-zc-vdluzcl kidney injury N17.9; N18.9 UTI (urinary tract infection) N39.0 Hypokalemia E87.6 Anemia D64.9 Anemia type: unspecified type Chronic kidney disease, stage 4 (severe) N18.4 Diabetes mellitus type 2 in obese E11.69; E66.9 Depression with anxiety F41.8 Pruritus L29.9 (1) Anemia Anemia type: unspecified type Qualified Code(s): D64.9 - Anemia, unspecified
[2022-04-19] MEDS ORDERED: diphenhydrAMINE Capsule 25 MG CAP PO ONE (12:14)
[2022-04-19] MEDS ORDERED: POTASSIUM CHLORIDE CRTAB 20 MEQ TABCR PO STA (12:28)
[2022-04-19] MEDS: ACETAMINOPHEN 325 MG TAB PO PRN (13:16)
[2022-04-19] MEDS ORDERED: Nursing to Pharmacy Communication SCH (16:45)
[2022-04-19] MEDS ORDERED: fentaNYL 25 MCG/HR TDSY TD SCH (17:00)
[2022-04-19] MEDS: traZODone HCL 100 MG TAB PO SCH (20:25)
[2022-04-20] MEDS: AZTREONAM 500 MG in DEXTROSE 5% 100 ML IV SCH (04:45)
[2022-04-20] MEDS: HEPARIN SOD 5,000 UNIT/0.5 ML VIAL SQ SCH (08:19)
[2022-04-20] MEDS: CHECK fentaNYL PATCH PLACEMENT SCH (08:23)
--- NOTE | 2022-04-20 08:28 | Discharge Summary ---
Discharge Summary Date of Service April 20, 2022 Admission Exam Per Admitting Provider The patient appeared well nourished and normally developed. Vital signs as documented. Head exam is normocephalic atraumatic Neck is without JVD, thyromegaly, or carotid bruits. Lungs are clear but diminished based on body habitus. Cardiac exam, Rhythm is regular.. No murmurs, rubs or gallops. Abdominal exam reveals normal bowel sounds, soft non tender, no masses no abdominal bruits are heard Extremities are trace to 1+ edema bilaterally and both pedal pulses are present Neurologic exam is alert and oriented x2, no focal loss of strength or sensation Skin is without bruises or rashes Psychologically is without concerns for anxiety or depression. Principal Dx & Hospital Course #1 = Principal Diagnosis (1) Lhakx-en-gfjxidi kidney injury: 67-year-old female past medical history CKD stage IVV, DM2, CVA, anemia admitted for SOLEDAD on CKD. SOLEDAD on CKD: - SOLEDAD (prerenal and ATN) on CKD. - Resides at [facility]; sent to ER for elevated creatinine. - Creatinine on admission of 8.56 -> has since down trended and creatinine is ~4.5 on discharge - Received IV hydration and bicarbonate replacement, with significant improvement in renal function. - Nephrology consulted and appreciate recommendations: Patient refuses dialysis in the event that that were to become required. - Will have outpatient follow-up with Dr. Aguilar on discharge if desired. (2) UTI (urinary tract infection): - Cultures growing Providencia, Pseudomonas, Morganella. - Patient was on aztreonam 250 mg every 8 hours through 04/16; received a total of 8 days of antibiotics before pulling out IV site. Given that she has received 8 days of antibiotics and ultimately has plan for hospice on return to her side feel that this is sufficient for her complicated UTI. (3) Hypokalemia: - Potassium has been in the low threes, however patient refuses potassium sup plementation in all forms the vast majority of the time. (4) Anemia: - Admission hemoglobin of 7.2, decreased to 6.7 during admission. - Now status post 2 units PRBCs, Venofer, and Epogen. - Hgb 9 on 04/19. (5) Chronic kidney disease, stage 4 (severe): - Patient has severe previous kidney disease and discussions with nephrology have occurred such that patient and family does not wish to pursue dialysis in the event that she were to have worsening of her renal disease. (6) Diabetes mellitus type 2 in obese: - Patient has had tremendous weight loss since her last admission she had a BMI of 44; BMI 32 at this time. - She takes alogliptin at home; should be decreased to 6.25 mg daily on discharge per nephrology if patient continues the medication at all. - Patient has not required any insulin on diabetic diet. (7) Depression with anxiety: - There was concerns in the past for polypharmacy patient remain on trazodone 100 at bedtime. - Cymbalta and BuSpar discontinued due to poor renal clearance. - Continue Wellbutrin. (8) Pruritus: - 04/19 with complaints of pruritus on right leg, however no rashes and no generalized pruritus. - Benadryl 25 mg p.o. x1 given. Plan CODE STATUS: DNR/DNI Disposition: Return to [facility] with plan for ryan transition to hospice care Discharge Exam Constitutional WD/WN, vitals as above no acute distress Skin no rashes, warm and dry Psychiatric Patient is alert, oriented to self and place, at times has an agitated affect but in general is fairly calm during conversation Updated Medication List Medication Instructions Recorded Confirmed Type cholecalciferol (vitamin D3) 125 5,000 unit PO DAILY 09/25/19 04/11/22 History mcg (5,000 unit) tablet (Vitamin D3) bupropion HCl 300 mg 24 hr tablet, 300 mg PO QAM 11/13/20 04/11/22 History extended release (Wellbutrin XL) acetaminophen 500 mg tablet 1,000 mg PO Q6H PRN Pain 12/03/20 04/11/22 History (Tylenol Extra Strength) famotidine 20 mg tablet (Pepcid) 20 mg PO BID 01/24/21 04/11/22 History pantoprazole 40 mg tablet,delayed 40 mg PO BID #42 tabs 02/17/21 04/11/22 Rx release bisacodyl 5 mg tablet,delayed 10 mg PO DAILY PRN Constipation 04/15/21 04/11/22 History release (Dulcolax (bisacodyl)) hydrocodone 5 mg-acetaminophen 325 1 tab PO Q12 PRN Pain 04/15/21 04/11/22 History mg tablet polyethylene glycol 3350 17 17 g PO DAILY 04/15/21 04/11/22 History gram/dose oral powder (Miralax) calcium carb-mag hydrox-simeth 675 2 tab PO Q12 PRN Indigestion 09/28/21 04/11/22 History mg-135 mg-60 mg chewable tablet cyclobenzaprine 5 mg tablet 5 mg PO Q8 PRN Muscle Spasm 09/28/21 04/11/22 History fentanyl 25 mcg/hr transdermal 1 patch transdermal Q72H 09/28/21 04/11/22 History patch methenamine hippurate 1 gram tablet 1 g PO BID 09/28/21 04/11/22 History ondansetron 4 mg disintegrating 4 mg PO Q6H PRN Nausea 09/28/21 04/11/22 History tablet trazodone 100 mg tablet 100 mg PO HS 09/28/21 04/11/22 History cyanocobalamin (vitamin B-12) 500 500 mcg PO DAILY 01/14/22 04/11/22 History mcg tablet ropinirole 0.5 mg tablet 0.5 mg PO HS 01/14/22 04/11/22 History alogliptin 25 mg tablet 25 mg PO QAM 04/11/22 04/11/22 History ferrous sulfate 325 mg (65 mg 325 mg PO DAILY 04/11/22 04/11/22 History iron) tablet folic acid 1 mg tablet 1 mg PO DAILY 04/11/22 04/11/22 History gabapentin 100 mg capsule 100 mg PO BID 04/11/22 04/11/22 History Hospital Stay Data Consultations 04/11/22 15:54 ED Decision to Admit Stat 04/11/22 21:33 Consult Nephrology Routine Consult Nephrology Routine Consult Urology Routine 04/12/22 12:39 Consult Palliative Care Routine Procedures Performed Operation Date: 04/14/22 07:50 Actual Procedures p Cystoscopy, Bilateral Retrograde pyelograms, Bilateral Stent Exchange(Bilateral) - Tyree Toney DO Diagnostic Imagining Performed 04/11/22 15:41 CT abd pelvis wo con Stat 04/14/22 07:50 FL retrograde includes kub Routine Pending Results Patient Have Any Pending Studies at Discharge: No Discharge Instructions Given to Patient (Per Discharging Provider) SOLEDAD on CKD IV-V: Presented with SOLEDAD on baseline CKD, approaching ESRD. Prerenal due to dehydration, ATN. Received IV hydration and bicarbonate replacement, with improvement in renal function to creatinine 4.4. Ureteral stents have been replaced in the OR by Urology. Nephrology and Urology on consult, appreciate recommendations: Decrease alogliptin to 6.25mg daily, if even continued on discharge. Can discontinue altogether in lieu of DM2 diet only if BSGs low on alogliptin and within normal range with meals. Avoid cyclobenzaprine on this level of CKD. Discontinued. Patient and daughter agree that they do not want dialysis in the event that it would be necessary. UTI (urinary tract infection): Cultures growing Providencia, Pseudomonas, Morganella. Currently on Aztreonam 250mg Q8 hrs (renally dosed), completed total of 8 days before pulling out IV. Plan for discharge to [facility] with hospice so feel 8 days is sufficient tx for this. Hypokalemia: Patient often refuses potassium replacements, tablets or liquid, as she says her body reacts badly to it. Anemia: Hgb stable post transfusion 2U PRBCs. Epogen 10,000 units x1, Venofer 200mg IV x1 received while admitted. Hgb stable on discharge. Diabetes mellitus type 2 in obese: Patient's had tremendous weight loss since last admission. At her last admission she had a BMI of 44 now she is 30. She takes alogliptin; per Nephrology should decrease to 6.25mg if the medication is continued. Glucoses have remained within acceptable range despite not receiving insulin or gliptin. Depression with anxiety: Holding Cymbalta and Buspar in setting of CKD IV-V. Continue Wellbutrin. Total Time Total Time Spent Total Time Spent (In Minutes): 35 Coding Level of Care Code D/C DAY MANAGEMENT >30 MINS Diagnoses Wtlmu-[id number] kidney injury N17.9; N18.9 UTI (urinary tract infection) N39.0 Hypokalemia E87.6 Anemia D64.9 Anemia type: unspecified type Chronic kidney disease, stage 4 (severe) N18.4 Diabetes mellitus type 2 in obese E11.69; E66.9 Depression with anxiety F41.8 Pruritus L29.9
[2022-04-20] MEDS: INSULIN ASPART PER UNIT SC SCH ×2 (09:27→12:26)
[2022-04-20] MEDS: FAMOTIDINE 20 MG TAB PO SCH (10:19)
--- NOTE | 2022-04-27 10:59 | Coding Query ---
BMI To promote full compliance with coding requirements relating to patient care, physician participation is requested in all cases of relay telegrapher uncertainty. Please assist us with the question(s) below: Please place an X within the parenthesis (x). If other, please document: BMI 32 was documented in this record for this patient. If the BMI is significant, please check the box that provides a more specific associated diagnosis: ( x ) Overweight/Obese ( ) Obesity ( ) Morbid obesity ( ) Obesity Hypoventilation Syndrome (OHS) ( ) Heathy weight, not significant ( ) Underweight/Thin ( ) Other, please specify Thank you Lizeth MENDEZ
--- NOTE | 2022-04-27 11:00 | Coding Query ---
To promote full compliance with coding requirements relating to patient care, provider participation is requested in all cases of hawk missile air defense artillery uncertainty. Please assist us with the question(s) below: Coding Question(s): The diagnosis below was documented in the H&P then subsequently fell off all further documentation. Please indicate if it is still a possible diagnosis or ruled out. Physician's Response(s): [employer]HE[employer] URINARY TRACT INFECTIN ( x ) Diagnosed and POA ( ) Diagnosed and not POA ( ) Ruled out ( ) Other (please specify) MTDD
== END 2022-04-20 12:39 | DRG 660 ==
LOC: ED 15:05 → SUATTDRO 16:37 → 2S 16:37 → 3W 04-15 18:40